=== PATIENT | male | born 1980 | race Caucasian/White ===

== ENCOUNTER 2017-07-13 | Emergency (ER) | payer SELFPAY ==
[2017-07-13] VITALS (11 sets, daily range): BP systolic 92–140; BP diastolic 52–92; PULSE 47–75; RESP 18–20; TEMP 97.4–97.9; O2SAT 93–97
[~2017-07-13] VITALS: Ht 167.6 cm; Wt 87.0 kg
[~2017-07-13] MED LIST: ASPI-516 CHEW; CYCL10TA PO; HYDR25TA5 PO; KLON2TAB PO; LISI-515 PO; METO25TA3 PO; NITR0.4S SL; OXYC15TA PO; ROSU10 PO
[2017-07-13] MEDS ORDERED: ONDANSETRON HCL 4 MG/2 ML VIAL IV PUSH PRN (00:45)
[2017-07-13] MEDS ORDERED: SODIUM CHLORIDE 0.9% FLUSH 10 ML FLUSH IV FLUSH PRN ×2 (00:45)
[2017-07-13] MEDS ORDERED: ACETAMINOPHEN 500 MG CPLT PO PRN (00:45)
[2017-07-13] MEDS ORDERED: NON-FORMULARY DRUG (Oxycodone 15 MG) PO PRN (10:00)
[2017-07-13] MEDS ORDERED: METOPROLOL TARTRATE 25 MG TAB PO SCH (11:00)
--- NOTE | 2017-07-13 11:23 | HHI.HP ---
HPI Primary Care Physician Non-Staff Chief Complaint Chest pain History of Present Illness This is a 37-year-old male that presents to ED with a stated history of CAD with an VT 7 years ago while he was in [place]. States that he had a cardiac catheterization in 1999 has also 2003 while in [place] and was told it mild disease but nothing that needed intervention. He was told that the VT was induced by cocaine. States he's had no cocaine since 1999. He presents to ED today with history of 2 days a constant sharp central chest discomfort that radiates down his left arm. No associated short of breath, nausea, or diaphoresis. He states he tried nitroglycerin couple times she did reduce the discomfort little bit but did not resolve it. Found nothing to worsen or improve the symptoms otherwise. 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 Patient continues to smoke cigarettes. Review of Systems General: Patient denies fevers, chills recent, and recent travel HEENT: Patient denies headache, sore throat, difficulty swallowing. Cardiovascular: Has the chest discomfort as mentioned above. Denies sensation of heart beating rapidly or irregularly. No syncope. Denies diaphoresis. Respiratory: Denies shortness of breath or inspirational chest discomfort. Denies coughing wheezing or hemoptysis. GI: Patient denies nausea, vomiting, diarrhea, abdominal pain, bloody stools. Musculoskeletal: Chronic back pain. Patient denies joint pain or edema. Denies calf pain or edema. Neurovascular: Patient denies numbness, tingling, weakness in extremities. Denies headache. Endocrine: Denies polyuria and polydipsia. Hematologic: Denies easy bruising. Skin: Denies rash or itching. Past Family Social History Allergies: Coded Allergies: No Known Allergies (Verified Allergy, Unknown, 07/13/17) Past Medical History Stated history of CAD. States he had 2 heart catheterizations one in 1999 and the other in 2002 revealing some disease but no interventions needed. 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 Hypertension, hyperlipidemia, chronic back pain, tobacco abuse. Denies diabetes. Reported Medications Reported Meds & Active Scripts Active Reported Hydrochlorothiazide 25 Mg Tab 25 Mg PO DAILY Oxycodone (Oxycodone HCl) 15 Mg Tab 15 Mg PO Q8H PRN Klonopin (Clonazepam) 2 Mg Tab 2 Mg PO TID Aspirin 81 Mg Chew 81 Mg CHEW DAILY Nitrostat SL (Nitroglycerin) 0.4 Mg Subl 0.4 Mg SL DIRECTED PRN 1 tablet under the tongue as needed for chest pain. Repeat every 5 minutes for a total of 3 DOSES or call 911 if NO relief. Crestor (Rosuvastatin Calcium) 10 Mg Tab 10 Mg PO DAILY Metoprolol Tartrate 25 Mg Tab 25 Mg PO DAILY Lisinopril 20 Mg Tab 20 Mg PO DAILY Active Ordered Medications Current Medications Medications (Trade) Dose Ordered Sig/Alison Route Start Time Stop Time Status Last Admin (NS Flush) 2 ml UNSCH PRN IV FLUSH 07/13/17 00:45 (NS Flush) 2 ml UNSCH PRN IV FLUSH 07/13/17 00:45 (Tylenol) 500 mg Q4H PRN PO 07/13/17 00:45 (Zofran Inj) 4 mg Q6H PRN IV PUSH 07/13/17 00:45 (Aspirin) 325 mg DAILY PO 07/14/17 09:00 (Roxicodone) 15 mg Q8H PRN PO 07/13/17 01:45 07/13/17 10:06 (Hydrodiuril) 25 mg DAILY PO 07/14/17 09:00 (Prinivil) 20 mg DAILY PO 07/13/17 11:00 (Lopressor) 25 mg DAILY PO 07/13/17 11:00 (Lipitor) 20 mg DAILY PO 07/13/17 11:00 Family History Denies family history of CAD. Social History Patient smokes about one half pack of cigarettes daily for 20 years. Denies alcohol. States she's had no illicit drugs since 1999. 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 Physical Exam Vital Signs Vital Signs Date Time Temp Pulse Resp B/P (MAP) Pulse Ox O2 Delivery O2 Flow Rate FiO2 07/13/17 08:00 52 07/13/17 07:40 97.4 52 18 92/52 (65) 97 07/13/17 03:30 97.8 58 18 97/55 (69) 95 07/13/17 03:12 14 07/13/17 00:50 61 07/13/17 00:31 97.5 67 20 140/89 (106) 96 Physical Exam GENERAL: This is a well-nourished, well-developed patient, in no apparent distress. Patient speaks in clear complete sentences. Patient is pleasant. HEENT: Head is atraumatic and normocephalic. Neck is supple without lymphadenopathy and trachea is midline. No JVD or carotid bruits. CARDIOVASCULAR: Regular rate and rhythm without murmurs, gallops, or rubs. RESPIRATORY: Clear to auscultation. Breath sounds equal bilaterally. No wheezes , rales, or rhonchi. Chest wall is nontender. No use of accessory muscles. GASTROINTESTINAL: Abdomen is nontender, nondistended. Abdomen soft. No obvious pulsatile mass or bruit. No CVA tenderness. Strong femoral pulses bilaterally. Normal bowel sounds in all quadrants. MUSCULOSKELETAL: Patient is moving upper and lower extremities freely. No calf tenderness or edema, no Homans sign. Strong pulses in upper and lower extremities. NEUROLOGICAL: Patient is alert and oriented. Cranial nerves 2-12 are grossly intact. No focal deficits and speech is clear. SKIN: No rash and turgor is normal. Laboratory Laboratory Tests Test 07/13/17 00:15 07/13/17 02:04 Troponin I LESS THAN 0.02 LESS THAN 0.02 Imaging Chest x-ray read by radiologist as nothing acute. Course EKGs and in sinus rhythm sinus bradycardia without significant ST segment depressions or elevations. Caprini VTE Risk Assessment Caprini VTE Risk Assessment: No/Low Risk (score <= 1) Caprini Risk Assessment Model Point Value = 1 Point Value = 2 Point Value = 3 Point Value = 5 Age 41-60 Minor surgery BMI > 25 kg/m2 Swollen legs Varicose veins or History of unexplained or recurrent spontaneous Oral contraceptives or hormone replacement Sepsis (< 1 month) Serious lung disease, including pneumonia (< 1 month) Abnormal pulmonary function Acute myocardial infarction Congestive heart failure (< 1 month) History of inflammatory bowel disease Medical patient at bed rest Age 61-74 Arthroscopic surgery Major open surgery (> 45 min) Laparoscopic surgery (> 45 min) Malignancy Confined to bed (> 72 hours) Immobilizing plaster cast Central venous access Age >= 75 History of VTE Family history of VTE Factor V Leiden Prothrombin [id number] Lupus anticoagulant Anticardiolipin antibodies Elevated serum homocysteine Heparin-induced thrombocytopenia Other congenital or acquired thrombophilia Stroke (< 1 month) Elective arthroplasty Hip, pelvis, or leg fracture Acute spinal cord injury (< 1 month) Prophylaxis Regimen Total Risk Factor Score Risk Level Prophylaxis Regimen 0-1 Low Early ambulation 2 Moderate Order ONE of the following: *Sequential Compression Device (SCD) *Heparin 5000 units SQ BID 3-4 Higher Order ONE of the following medications: *Heparin 5000 units SQ TID *Enoxaparin/Lovenox 40 mg SQ daily (WT < 150 kg, CrCl > 30 mL/min) *Enoxaparin/Lovenox 30 mg SQ daily (WT < 150 kg, CrCl > 10-29 mL/min) *Enoxaparin/Lovenox 30 mg SQ BID (WT < 150 kg, CrCl > 30 mL/min) AND/OR *Sequential Compression Device (SCD) 5 or more Highest Order ONE of the following medications: *Heparin 5000 units SQ TID (Preferred with Epidurals) *Enoxaparin/Lovenox 40 mg SQ daily (WT < 150 kg, CrCl > 30 mL/min) *Enoxaparin/Lovenox 30 mg SQ daily (WT < 150 kg, CrCl > 10-29 mL/min) *Enoxaparin/Lovenox 30 mg SQ BID (WT < 150 kg, CrCl > 30 mL/min) AND *Sequential Compression Device (SCD) Assessment and Plan Assessment and Plan * Chest pain: Patient has had serial cardiac enzymes and EKGs for ruling out purposes. He will be seen by Dr. Guerrero of cardiology in the chest and center. Patient states he cannot go on the treadmill was his back issues and subsequently will undergo a Lexiscan. He'll be discharged home if the stress test is nonischemic, he will need follow-up with PCP and cardiology. Return to ED for interval issues. * Hypertension: Continue current medication. * Hyperlipidemia: Continue current medication. * Tobacco abuse: Patient has been counseled on importance of smoking cessation. Patient is stable time. He is agreeable to this plan. Josse Fernandez Jul 13, 2017 11:23
[2017-07-13] MEDS ORDERED: MORPHINE SULFATE 4 MG/ML INJ IV PUSH ONE ×2 (14:03→21:15)
[2017-07-13] MEDS ORDERED: REGADENOSON INJ 0.4 MG/5 ML SYR ONE (14:16)
--- NOTE | 2017-07-13 14:23 | EKG ---
Date Performed: 07/13/2017 Time Performed: 02:35:25 PTAGE: 37 years EKG: SINUS BRADYCARDIA BORDERLINE ECG PREVIOUS TRACING : 02/17/2014 11.27 Since previous tracing, no significant change noted DOCTOR: Abdirizak Guerrero Interpretating Date/Time 07/13/2017 14:22:45
[2017-07-13] MEDS: LISINOPRIL 20 MG TAB PO SCH (15:32)
[2017-07-13] MEDS: ATORVASTATIN 20 MG TAB PO SCH (15:34)
--- NOTE | 2017-07-13 16:30 | RADRPT ---
EXAM DATE/TIME: 07/13/2017 13:36 [facility] COMPARISON: No previous studies available for comparison. INDICATIONS : Chest pain. Angina. DOSE: 25.4 mCi Tc99m Myoview at stress. 8.5 mCi Tc99m Myoview at rest. 0.4 mg Lexiscan STRESS SYMPTOMS: Shortness of breath, chest pressure. EJECTION FRACTION: 56% MEDICAL HISTORY : Hypertension. Hepatitis. SURGICAL HISTORY : Appendectomy. ENCOUNTER: Initial ACUITY: 1 day PAIN SCALE: 4/10 LOCATION: Bilateral chest TECHNIQUE: The patient underwent pharmacologic stress with infusion of prescribed dose. Continuous ECG tracing was monitored during stress. Gated SPECT imaging was performed after stress and conventional SPECT i maging was performed at rest. The examination was performed on a SPECT/CT scanner, both attenuation and non-corrected datasets were reviewed. FINDINGS: DISTRIBUTION: The maximum perfused segment at stress is in the anterolateral wall. PERFUSION STUDY: The exam demonstrates a moderate severity, reversible perfusion defect involving the septum. There is no associated wall motion abnormality. GATED STUDY: There is intact wall motion and thickening without hypokinetic or dyskinetic segments. CONCLUSION: 1. Moderate in severity, reversible perfusion defect involving the cardiac septum. RISK CATEGORY: Intermediate (1-3% Annual Mortality Rate) Vitaly Lentz MD on July 13, 2017 at 16:26 Board Certified Radiologist. This report was verified electronically.
--- NOTE | 2017-07-13 17:53 | TR ---
Date Performed: 07/13/2017 Time Performed: 14:12:44 DOCTOR: Abdirizak Guerrero DRUG LIST: CLINICAL HISTORY: ANGINA REASON FOR TEST: REASON FOR ENDING: OBSERVATION: CONCLUSION: Lexiscan stress test was performed under standard four minute protocol. Radionuclid e was injected one minute prior to ending the test. No electrocardiographic abormalities were present to suggest ischemia. Nuclear imaging and interpretation are pending. COMMENTS:
[2017-07-13] MEDS: NITROGLYCERIN 2% OINT 1 GM PACKET TOPICAL SCH ×2 (18:16→23:08)
[2017-07-13] MEDS ORDERED: HEPARIN-D5W 25,000 U/250 ML 250 ML IV PRN ×3 (21:30→23:15)
[2017-07-13] MEDS: clonazePAM 1 MG TAB PO PRN (23:06)
[2017-07-14 00:23] LABS: APTT (PATIENT) 34.6 SEC (24.3-30.1); INTERNATIONAL NORMALIZED RATIO 1.1 RATIO; PROTHROMBIN TIME - PATIENT 12.2 SEC (9.8-11.6)
[2017-07-14 00:49] VITALS: BP 89/53; PULSE 65; RESP 18; TEMP 98; O2SAT 95
[2017-07-14 01:16] VITALS: BP 131/75; PULSE 63
[2017-07-14] MEDS: MORPHINE SULFATE 4 MG/ML INJ IV PUSH PRN ×2 (01:19→07:03)
[2017-07-14 04:34] LABS: AUTOMATED NEUTROPHIL # 2.8 TH/MM3 (1.8-7.7); BASOPHIL % 0.6 % (0.0-2.0); EOSINOPHIL # 0.3 TH/MM3 (0-0.4); EOSINOPHIL % 5.1 % (0.0-4.0); HEMATOCRIT 41.2 % (39.0-51.0); HEMO FLAGS DIFF FINAL; LYMPH % 33.1 % (9.0-44.0); LYMPHOCYTE # 1.8 TH/MM3 (1.0-4.8); MEAN CELL VOLUME 90.4 FL (80.0-100.0); MEAN CORPUSCULAR HGB CONC 34.3 % (32.0-36.0); MONO % 9.2 % (0.0-8.0); PLATELET COUNT 207 TH/MM3 (150-450); RED BLOOD COUNT 4.56 MIL/MM3 (4.50-5.90); RED CELL DISTRIBUTION WIDTH 14.6 % (11.6-17.2); WHITE BLOOD COUNT 5.4 TH/MM3 (4.0-11.0)
[2017-07-14 04:44] LABS: APTT (PATIENT) 45.3 SEC (24.3-30.1)
[2017-07-14 04:50] LABS: BICARBONATE 30.2 MEQ/L (21.0-32.0); POTASSIUM 4.1 MEQ/L (3.5-5.1)
[2017-07-14 05:35] VITALS: BP 128/85; PULSE 62; RESP 18; TEMP 97.3; O2SAT 95
[2017-07-14] MEDS: NITROGLYCERIN 2% OINT 1 GM PACKET TOPICAL SCH (06:00)
[2017-07-14 07:18] VITALS: BP 132/93; PULSE 62; PULSE 68; RESP 18; TEMP 97.8; O2SAT 99
[2017-07-14] MEDS ORDERED: POVIDONE IODINE 5% (ANTISEPSIS KIT) 4 APPLICATIONS EACH NARE PRN (07:30)
[2017-07-14] MEDS ORDERED: METOPROLOL TARTRATE 25 MG TAB PO PRN (07:30)
[2017-07-14] MEDS ORDERED: CHLORHEXIDINE GLUCONATE 2 % 1 PACK (2 CLOTHS) TOPICAL PRN (07:30)
[2017-07-14] MEDS ORDERED: SODIUM CHLORID 0.9% 500 ML IV PRN (07:30)
[2017-07-14] MEDS ORDERED: LACTATED RINGER'S 1000 ML IV PRN (07:30)
[2017-07-14] MEDS ORDERED: SODIUM CHLOR 0.9% 1000 ML INJ 1,000 ML IV SCH (08:09)
[2017-07-14] MEDS: ATORVASTATIN 20 MG TAB PO SCH (08:09)
[2017-07-14] MEDS: clonazePAM 1 MG TAB PO PRN (08:10)
[2017-07-14] MEDS: LISINOPRIL 20 MG TAB PO SCH (08:10)
--- NOTE | 2017-07-14 08:10 | HHI.PR ---
Subjective Remarks Follow up for chest pain. The patient reports continued episodes of intermittent left anterior chest pain overnight, lasts 5-10minutes, relieved by IV morphine. Denies any associated SOB, nausea/vomiting, or diaphoresis. He is agreeable to cardiac catheterization. He does continue to smoke tobacco. He has no other medical complaints at this time. Objective Vitals Vital Signs Date Time Temp Pulse Resp B/P (MAP) Pulse Ox O2 Delivery O2 Flow Rate FiO2 07/14/17 07:18 62 07/14/17 07:18 97.8 68 18 132/93 (106) 99 07/14/17 05:35 97.3 62 18 128/85 (99) 95 07/14/17 05:22 16 07/14/17 01:16 63 131/75 (93) 07/14/17 00:49 98.0 65 18 89/53 (65) 95 07/13/17 23:23 47 07/13/17 21:37 97.5 62 18 134/92 (106) 96 07/13/17 17:00 54 07/13/17 15:24 97.7 74 18 123/87 (99) 97 07/13/17 12:00 62 07/13/17 11:22 97.9 75 18 107/58 (74) 93 07/13/17 08:00 52 Result Diagram: 07/14/1741907/14/17 042 Imaging Last Impressions Myocardial Perfusion Scan Nuc Med 07/13/17 0000 Signed Impressions: Service Date/Time: June 13:36 - CONCLUSION: 1. Moderate in severity, reversible perfusion defect involving the cardiac septum. RISK CATEGORY: Intermediate (1-3%% Annual Mortality Rate) Vitaly Lentz MD Objective Remarks GENERAL: Well-nourished, well-developed middle aged male patient in [facility]. SKIN: Warm and dry. No rash. HEENT: Normocephalic. Atraumatic. Pupils equal and round. Mucous membranes pink and moist. NECK: Supple. Trachea midline. CARDIOVASCULAR: Regular rate and rhythm. S1, S2 noted. No murmur appreciated. RESPIRATORY: No accessory muscle use. Clear to auscultation. Breath sounds equal bilaterally. GASTROINTESTINAL: Abdomen soft, non-tender, nondistended. Normoactive bowel sounds x4. MUSCULOSKELETAL: No obvious deformities. Extremities without clubbing, cyanosis , or edema. NEUROLOGICAL: Awake and alert. No obvious cranial nerve deficits. Motor grossly within normal limits. Normal speech. PSYCHIATRIC: Appropriate mood and affect; insight and judgment normal. Medications and IVs Current Medications Medications (Trade) Dose Ordered Sig/Alison Route Start Time Stop Time Status Last Admin (NS Flush) 2 ml UNSCH PRN IV FLUSH 07/13/17 00:45 07/14/17 01:19 (NS Flush) 2 ml UNSCH PRN IV FLUSH 07/13/17 00:45 (Tylenol) 500 mg Q4H PRN PO 07/13/17 00:45 (Zofran Inj) 4 mg Q6H PRN IV PUSH 07/13/17 00:45 (Aspirin) 325 mg DAILY PO 07/14/17 09:00 (Hydrodiuril) 25 mg DAILY PO 07/14/17 09:00 (Prinivil) 20 mg DAILY PO 07/13/17 11:00 07/13/17 15:32 (Lipitor) 20 mg DAILY PO 07/13/17 11:00 07/13/17 15:34 (Nitroglycerin 2% Oint) 1 inch Q6HR TOPICAL 07/13/17 18:00 07/13/17 18:16 (Roxicodone) 15 mg Q6HR PRN PO 07/13/17 21:15 07/14/17 04:22 (KlonoPIN) 1 mg Q8HR PRN PO 07/13/17 21:15 07/13/17 23:06 (Morphine Inj) 4 mg Q3H PRN IV PUSH 07/13/17 21:30 07/14/17 07:03 Heparin Sodium/ Dextrose 250 ml @ 10 mls/hr TITRATE PRN IV 07/13/17 23:15 07/14/17 00:32 Lactated Ringer's 1,000 ml @ 30 mls/hr Q24H PRN IV 07/14/17 07:30 07/17/17 07:29 Sodium Chloride 500 ml @ 30 mls/hr [id number] PRN IV 07/14/17 07:30 07/17/17 07:29 (Lopressor) 25 mg HEALTHCARE RECEPTIONIST PRN PO 07/14/17 07:30 07/17/17 07:29 (Betadine 5% Antisepsis Kit) 1 applic HEALTHCARE RECEPTIONIST PRN EACH NARE 07/14/17 07:30 07/17/17 07:29 (Chlorhexidine 2% Cloth) 3 pack HEALTHCARE RECEPTIONIST PRN TOPICAL 07/14/17 07:30 07/17/17 07:29 (Lopressor) 25 mg Q12HR PO 07/14/17 09:00 UNV A/P Problem List: (1) Unstable angina ICD Code: I20.0 - Unstable angina (2) CAD (coronary artery disease) ICD Code: I25.10 - Atherosclerotic heart disease of ruby coronary artery without angina pectoris Status: Acute (3) HTN (hypertension) ICD Code: I10 - Essential (primary) hypertension (4) HLD (hyperlipidemia) ICD Code: E78.5 - Hyperlipidemia, unspecified (5) Tobacco abuse ICD Code: Z72.0 - Tobacco use Assessment and Plan 37-year-old male history of HTN, HLD, mild CAD (no stents), chronic back pain, anxiety, tobacco use, presents with chest pain. Unstable angina: Patient initially admitted to chest pain center, ACS ruled out with negative serial cardiac enzymes 2 and EKG without any ischemic changes. Nuclear stress test showed moderate severity, reversible perfusion defect involving the cardiac septum. The patient was admitted to the hospitalist, with cardiology consult pending. -Continue on IV heparin drip -Started on full strength aspirin -Patient unable to tolerate nitroglycerin ointment secondary to severe headache and hypotension -Continue patient's lisinopril, statin -UDS negative for cocaine, restart beta tawana -Give IV morphine prn chest pain -Monitor on telemetry -Consult cardiology, plan for cardiac catheterization today Hypertension: chronic -continue patient's lisinopril, metoprolol, HCTZ -monitor BP, adjust antihypertensives as needed Hyperlipidemia: chronic -continue patient's statin -check lipid panel Anxiety/Chronic Back Pain: chronic -continue patient's home oxycodone prn and Klonopin prn Tobacco Use: chronic -counseled on cessation -avoid nicotine patch due to vasoconstriction DVT Prophylaxis: on Heparin drip Discharge Planning 1300hrs: Patient's cardiac catheterization clean, cleared for discharge by Dr. Majano. RN reports patient eloped the building then returned, agreed to stay for proper discharge and medication refill however requested to speak with physician. Patient seen by myself and Dr. Faulkner. He is requesting all of his meds be refilled for at least 1 week. Explained will only fill cardiac medications, patient verbalized understanding. He will be discharged. Discharge patient to home Condition on discharge: Improved Heart Healthy Diet as tolerated Ad Michelle activity Rx written: lisinopril, metoprolol, hctz, aspirin, statin Follow-up with primary care physician and cardiology Tatiana Skinner PA-C Jul 14, 2017 8:10 am
[2017-07-14] MEDS ORDERED: MIDAZOLAM HCL 2 MG/2 ML VIAL IV PUSH SCH (08:15)
[2017-07-14] MEDS ORDERED: DIAZEPAM 10 MG TAB PO SCH (08:15)
[2017-07-14] MEDS ORDERED: diphenhydrAMINE HCL 50 MG CAP PO SCH (08:15)
[2017-07-14] MEDS ORDERED: METOPROLOL TARTRATE 25 MG TAB PO SCH (09:00)
[2017-07-14] MEDS ORDERED: ASPIRIN 325 MG TAB PO SCH (09:00)
[2017-07-14] MEDS ORDERED: HYDROCHLOROTHIAZIDE 25 MG TAB PO SCH (09:00)
[2017-07-14 09:11] LABS: APTT (PATIENT) 34.3 SEC (24.3-30.1)
--- NOTE | 2017-07-14 09:53 | MB ---
cc: MINERVA SIDDIQUI M.D. DATE OF CONSULTATION: 07/14/2017 REASON FOR CONSULTATION: Chest pain, abnormal nuclear stress test. HISTORY OF PRESENT ILLNESS: The patient is a 37 year-old white male with a history of hypertension, hyperlipidemia, mild coronary disease by heart catheterizations 1999 and 2002 according to the patient who presented to the hospital with chest pain. For about the past two to three days he has been having intermittent episodes of substernal chest discomfort described as "pressure" without associated shortness of breath or diaphoresis. One episode was associated with nausea. He became concerned on the day of admission because the pain radiated to his left arm. Episodes have lasted up to two hours in duration. He has taken sublingual nitroglycerin at home with partial relief of the chest pain. Nuclear stress testing yesterday suggested septal ischemia. He denies pleurisy, dizziness, syncope, near syncope, palpitations, peripheral edema. He reports compliance with his medications. PAST MEDICAL HISTORY: As above. He also has a history of hepatitis C. CARDIAC MEDICATIONS AT HOME: 1. Hydrochlorothiazide 25 mg daily. 2. Aspirin 81 mg daily. 3. Crestor 10 mg daily. 4. Metoprolol tartarate 25 mg daily. 5. Lisinopril 20 mg daily. ALLERGIES NO KNOWN DRUG ALLERGIES FAMILY HISTORY: There is no significant family history of early myocardial infarction. SOCIAL HISTORY: The patient smokes about 8 cigarettes per day. He denies drug or alcohol abuse. He has used cocaine in the distant past. REVIEW OF SYSTEMS As in the history of present illness otherwise negative and noncontributory. He also denies headaches, abdominal pain, melena, dyspepsia, bright red blood per rectum. PHYSICAL EXAMINATION: VITAL SIGNS: Blood pressure 132/93 with pulse of 62, respirations 18. IN GENERAL: He is a well-developed, well-nourished white male in no acute distress. HEAD, EARS, EYES, NOSE, AND THROAT: Jugular venous pressure is normal, carotid pulses are 2+ bilaterally without bruits. CHEST: Examination of the chest reveals clear lung salazar CARDIAC: On cardiac examination, he has regular rhythm and rate without S3, S4 or murmur. ABDOMEN: He has a soft, nontender abdomen, bowel sounds are present. There is no definite hepatosplenomegaly. EXTREMITIES: Examination of the extremities reveals no clubbing, cyanosis or edema. Peripheral pulses are normal throughout. LABORATORY DATA: normal basic metabolic profile, negative cardiac enzymes. Normal CBC. Electrocardiogram shows sinus bradycardia, otherwise normal electrocardiogram. IMPRESSION: Overall atypical chest pains, abnormal nuclear stress test in this 37 year old white male with history of hypertension, hyperlipidemia, hepatitis C, mild coronary disease according to the patient, demonstrated by cardiac catheterizations many years ago. His chest pains have no relationship to exertion whatsoever. He has had episodes lasting at least 2 hours in duration with negative cardiac enzymes. EKG's show no ST-segment or T-wave changes. His nuclear stress test images have been reviewed. There is indeed reversibility in the septum. However, isolated septal ischemia would be an unusual finding. He does have risk factors for coronary disease. The patient does continue to have ongoing chest discomforts at rest. Overall, I have recommended he undergo cardiac catheterization for most definitive evaluation of his coronaries. The nature of this procedure and potential risks including but not limited to , myocardial infarction, stroke, arrhythmia, bleeding, infection, renal failure been outlined to the patient. He agrees to proceed. RECOMMENDATIONS Cardiac catheterization today. MD RAMA Greene/ying /8:10 AM /9:50 AM MTDD
[2017-07-14 10:07] LABS: HDL CHOLESTEROL 64.7 MG/DL (40.0-60.0)
[2017-07-14] MEDS ORDERED: IOHEXOL 350 MG/ML 100 ML BTL (for Cath Lab) OTHER ONE (10:43)
[2017-07-14] MEDS ORDERED: HEPARIN-NS/PF INJ 1,000 ML ONE (10:53)
[2017-07-14] MEDS ORDERED: MIDAZOLAM HCL 2 MG/2 ML VIAL ONE (10:54)
[2017-07-14] MEDS ORDERED: NITROGLYCERIN INJ 5 ML ONE (11:03)
[2017-07-14] MEDS ORDERED: HEPARIN SODIUM - IV 10,000 UNITS/10 ML VIAL ONE (11:03)
[2017-07-14] MEDS ORDERED: VERAPAMIL HCL 5 MG/2 ML VIAL ONE (11:03)
--- NOTE | 2017-07-14 11:24 | CATHPROC ---
[employer] HIS Report Study Information Study Number Admission Scheduled Start Study Start [id number] Jul 13 2017 12:10AM 07/14/2017 Jul 14 2017 10:13AM [place] [facility] Cardiac Catheterization Admit Source Facility Department Other [facility] - Language Instructor Physician and Clinical Staff Initial Hiram Michael Facilities Administrator Coco Caraballo,ANTONELLA Facilities Administrator Karan Campbell,ANTONELLA Other cathlab, cathlab Recorder Felix Washington RCIS(BS) Scrub Alvina Hernandez RT(R) (BS) Procedures Performed Procedure Location (Site) Vessel Name Coronary Angiograms LCA Left Coronary Coronary Angiograms RCA Right Coronary L Heart Cath LV Gram-hand inj. LV LV Ventricle Equipment Time Balloon Maker Description Size Mfg Part Number Used/Scraped TRANSDUCER, TRPellePharmAVE [id number] 11:03 VILLALOBOS GARCIA * Used W/STOCKCOCK *[id number] *[id number] *[id number] *[id number] 11:03 MALLINCKRODT SYRINGE, ANGIOMAT 150ML 150ML *[id number] Used [facility] Spootr CONCEPT DRAPE, RADIAL FEMORAL FULL 11:03 * [id number] *[id number] Used DEVELOPMENT BODY [id number] 11:03 Tradoria PACK, CCL CUSTOM * Used *[id number] 11:03 Tradoria SUPPORT, ARTERIAL ADULT [id number] *[id number] Used [id number] 11:03 icomply PACER PEN, SKIN DUAL W/ RULER * Used *[id number] SHEATH, FR6 RADIAL PRELUDE 11:03 Xamarin FR 6 [id number] Used EASE 11CM [id number] 11:03 Xamarin WIRE, EXCHANGE 260CM 3MMJ 260CM Used *[id number] 11:03 NAMIC MANIFOLD, 4 PORT * Used *[id number] 11:03 NYCOMED OMNIPAQUE, 350 MG, 150ML 150ML [id number] Used [id number] 11:03 [employer] BLANKET,WARM AIR CCL * Used *[id number] CATHETER, FR5 OPTITORQUE [id number] 11:03 TERkaufDA FR 5 Used RADIAL TIG 4.0 *[id number] History: Current Medications Medication Dosage/Unit Route Frequency Last Date/Time Taken ASA CRESTOR Beta Gianfranco LISINOPRIL History: Allergies Allergy Reaction No Known Allergies History: Risk Factors Family History of Hypertension Dyslipidemia Previous TN Previous Heart Failure Premature CAD Yes Yes No Yes No Prior Valve Prior PCI Prior CABG Surgery No No No Cerebrovascular Peripheral Artery Chronic Lung On Dialysis Diabetes Disease Disease Disease No No No No No History: Symptoms/Diagnosis Selection Items Chest pain History: Stress Tests Stress or Imaging Studies Performed Yes Standard Exercise Stress Test No Stress Echo No Stress Test SPECT Stress Test SPECT Result Stress Test SPECT Ischemia Risk/Extent Yes Positive Intermediate Stress Test CMR No Cardiac CTA Coronary Calcium Score No No History: Other Disease Selection Items HTN History: TN/CV Data Previous Cath Date 08/28/2002 History: Other Current Smoker No Labs Hgb (g/dl) Hct (%) WBC (l/cumm) Platelets (thousands) 11.60-17.00 35.00-51.00 4.00-11.00 150.00-450.00 14.1 41.2 5.4 207 Glucose (mg/dl) BUN (mg/dl) Creatinine (mg/dl) BUN:Creatinine (1:x) 74.00-106.00 7.00-18.00 0.50-1.30 10.00-20.00 83 22 0.8 27.5 Na (meq/l) K (meq/l) 136.00-145.00 3.50-5.10 142 4.1 INR (PTT:PT) 0.90-1.10 1.1 Troponin I (ng/ml) CPK-MB (ng/ML) 0.02-0.05 0.50-3.60 0.02 Not Drawn Medication Medication Total Dose (Bolus/Oral) Medication Total Dosage/Unit 1% XYLOCAINE 3 mL FENTANYL 50 mcg RADIAL COCKTAIL 5 mL (Bolus) VERSED 2 mg Medications (Bolus/Oral) Medication Time Given Dosage/Unit Administered By Reason 07/14/2017 11:05:04 VERSED 2 mg Karan Campbell AM 2 mg VERSED given in lab by Karan Campbell RN in Left Antecubital via Peripheral IV. Ordered by Glenn. Kelle 07/14/2017 11:05:13 FENTANYL 50 mcg Karan Campbell AM 50 mcg FENTANYL given in lab by Karan Campbell RN in Left Antecubital via Peripheral IV. Ordered by Glenn. Gretel 07/14/2017 11:05:27 1% XYLOCAINE 3 mL Hiram Majano AM 3 mL 1% XYLOCAINE given in lab by Hiram Majano in Right Radial via Subcutaneous. 07/14/2017 11:06:37 Ntg 200mcg Verapamil 2.5mg Heparin RADIAL COCKTAIL 5 mL (Bolus) Hiram Majano AM 2500U 5 mL (Bolus) RADIAL COCKTAIL given in lab by Hiram Majano in Right Radial via Radial. Using [Solution Name]. Reason: Ntg 200mcg Verapamil 2.5mg Heparin 2500U. Medication (Drip) Medication Time Given Dosage/Unit Concentration/Unit Diluent (ml) Solutio n 07/14/2017 10:39:17 IV Solutions 0 mL (IV) 500 NaCl .9 AM Patient arrived on IV Solutions given by cathlab, cathlab in Left Antecubital via Peripheral IV. Pump /Drip Flow = 20 ml/hr using NaCl .9. Ordered by Hiram Majano. Initial Case Assessment Cardiovascular HR Rhythm NIBP Chest Pain 66 nsr 145/100 0 Edema Present Skin color Skin None Normal Warm Dry Circulatory - Right Pulses Dorsalis Pedis Femoral Radial 3 3 3 Scale (0,1,2,3,4,d) Scale (0,1,2,3,4,d) Neurological State Oriented to time-place- Alert Moves all extremities person Respiration - General Respiration Rate SpO2 (%) (B/min) 15 98 Final Case Assessment Cardiovascular HR Rhythm NIBP Chest Pain 69 nsr 126/89 0 Edema Present Skin color Skin None Normal Warm Dry Circulatory - Right Pulses Dorsalis Pedis Femoral Radial 3 3 3 Scale (0,1,2,3,4,d) Scale (0,1,2,3,4,d) Neurological State Oriented to time-place- Alert Moves all extremities person Respiration - General Respiration Rate SpO2 (%) (B/min) 15 95 Chronological Log Time Study Chronological Log 10:39:03 Patient arrived via Bed. 10:39:04 Patient Name, D.O.B, / Armband Verified By R.N. 10:39:04 Consent signed by the physician and the patient and verified by the Language Instructor staff. 10:39:05 Pre-op and post- op instructions given; patient acknowledges understanding of instructions. 10:39:05 Verbal Stimulation=2 Physical Stimulation=2 Airway=2 Respiration=2 TOTAL=8. (0=absent, 1=li mited, 2=present) 10:39:06 Presedation assessment performed by Language Instructor RN. 10:39:07 Allens test performed on the right radial and ulnar artery. POSITIVE. 10:39:08 Immediate Presedation assesment performed by physician. 10:39:09 Patient has been NPO for More than 6Hrs. 10:39:09 Skin Breakdown- none per patient 10:39:15 Patient Warmer Placed on the Table. 10:39:16 Bobby Prominences Protected 10:39:16 A # 20 IV was noted in the Antecubital (left). Grade = 0 Patient arrived on IV Solutions given by cathlab, cathlab in Left Antecubital via Peripheral IV . Pump/Drip Flow = 20 10:39:17 ml/hr using NaCl .9. Ordered by Hiram Majano. 10:39:17 History and physical on the chart or being dictated. 10:47:51 Reference ECG taken Vitals capture started with the following parameters, Patient=Adult, Interval=5 min, Initial Pr oexwhj=683 mmHg, 10:47:52 Deflation Rate=5 mmHg, Cuff placed on Left Arm Assessment: Initial Case, HR=66 BPM, Rhythm=nsr, LFSC=736/100 mmhg, Chest Pain=0, Edema=None, Color=Normal, Skin = Warm, Dry 10:47:53 Right Pulses: Jamison Ped=3, Femoral=3, Radial=3 Neurological: State=Alert, Ox3, MEIER Respiration: Resp=15 B/min, SpO2=98 % 10:49:10 HR=60 bpm, VICP=409/100 mmhg, SpO2=98.0 %, Resp=13 B/min, Pain=0, Christopher=10, Nazario=2 10:52:53 Right Radial and groin(s) prepped with 2% chlorhexidine, and draped after a 3 min. waiting time. 10:53:49 HR=60 bpm, PCJU=122/89 mmhg, SpO2=95.0 %, Resp=12 B/min, Pain=0, Christopher=10, Nazario=2 10:57:13 MD paged 10:57:22 MD responded 10:57:54 Pressure channel 1 zeroed. 10:59:02 HR=59 bpm, FLBD=168/91 mmhg, SpO2=94.0 %, Resp=18 B/min, Pain=0, Christopher=10, Nazario=2 11:01:45 MD arrived. 11:01:51 Contrast Scanned 11:01:52 Immediate Presedation assesment performed by physician. 11:03:28 HR=61 bpm, STEK=333/73 mmhg, SpO2=92.0 %, Resp=15 B/min, Pain=0, Christopher=10, Nazario=2 Time Out. Correct patient, correct procedure, correct physician, power injector not loaded with contrast with surgical 11:04:37 team present. Time Out Concurred by MD and individual staff in procedure. 11:04:47 Case Start 11:04:48 Verbal Stimulation=2 Physical Stimulation=2 Airway=2 Respiration=2 TOTAL=8. (0=absent, 1=li mited, 2=present) 11:05:04 2 mg VERSED given in lab by Karan Campbell, ANTONELLA in Left Antecubital via Peripheral IV. Order ed by Hiram Majano. 11:05:13 50 mcg FENTANYL given in lab by Karan Campbell, ANTONELLA in Left Antecubital via Peripheral IV. O rdered by Hiram Majano. 11:05:27 3 mL 1% XYLOCAINE given in lab by Hiram Majano in Right Radial via Subcutaneous. 11:05:59 Access site was Right Radial Artery. A SHEATH, FR6 RADIAL PRELUDE EASE 11CM FR 6 was advanced into the Radial (right) using the Perc utaneous 11:06:24 technique. 5 mL (Bolus) RADIAL COCKTAIL given in lab by Hiram Majano in Right Radial via Radial. Using [So lution Name]. Reason: 11:06:37 Ntg 200mcg Verapamil 2.5mg Heparin 2500U. A CATHETER, FR5 OPTITORQUE RADIAL TIG 4.0 FR 5 was advanced over a wire. OMNIPAQUE, 350 MG, 150 ML 150ML 11:06:53 was used for injections. 11:08:29 HR=64 bpm, NIBP=95/64 mmhg, SpO2=95.0 %, Resp=16 B/min, Pain=0, Christopher=10, Nazario=2 Recorded Pressure: Ao, HR=65, Condition=Condition 1 11:09:35 (Aorta) Ao 99/72/86 11:10:17 The LCA was injected and visualized at various angles. OMNIPAQUE, 350 MG, 150ML 150ML used . After removing the current catheter a JR 5.0 INFINITI CATHETER FR 6 was advanced over a WIRE, E XCHANGE 260CM 11:12:25 3MMJ 260CM. 11:13:51 HR=68 bpm, VEFC=871/79 mmhg, SpO2=90.0 %, Resp=11 B/min, Pain=0, Christopher=10, Nazario=2 11:15:00 The RCA was injected and visualized at various angles. OMNIPAQUE, 350 MG, 150ML 150ML used . After removing the current catheter a MPA-2 INFINITI CATHETER FR 6 was advanced over a WIRE, EX CHANGE 260CM 11:15:53 3MMJ 260CM. After removing the current catheter a PIGTAIL STR INFINITI CATHETER FR 6 was advanced over a WI RE, EXCHANGE 11:17:00 260CM 3MMJ 260CM. Recorded Pressure: LV, HR=60, Condition=Condition 1 11:18:16 (Left Ventricle) LV 110/6/16 11:18:23 HR=77 bpm, UCZU=293/89 mmhg, Resp=20 B/min, Pain=0, Christopher=10, Nazario=2 11:18:32 The LV was manually injected with 10 cc's and visualized. OMNIPAQUE, 350 MG, 150ML 150ML us ed. Recorded Pressure: LV, Ao, HR=64, Condition=Condition 1 11:18:44 (Left Ventricle) LV 97/3/10, (Aorta) Ao 102/66/84 11:18:53 Catheter was removed 11:18:56 Case End Assessment: Final Case, HR=69 BPM, Rhythm=nsr, NHPB=806/89 mmhg, Chest Pain=0, Edema=None, [place] r=Normal, Skin = Warm, Dry 11:19:01 Right Pulses: Jamison Ped=3, Femoral=3, Radial=3 Neurological: State=Alert, Ox3, MEIER Respiration: Resp=15 B/min, SpO2=95 % 11:19:18 Radial Compression Device Used. 15 mLs of air placed in closure device. Affected hand 95 % O2 saturation. 11:19:38 Sterile dressing applied to site 11:19:39 No case complications noted. 11::39 Cine recording checked. 11:19:42 Bedside Report will be given. 11:19:44 Contrast Scanned 11::46 Verbal Stimulation=2 Physical Stimulation=2 Airway=2 Respiration=2 TOTAL=8. (0=absent, 1=li mited, 2=present) 11:20:23 A Left Heart Cath was performed. 11:23:24 HR=60 bpm, DZZZ=195/86 mmhg, SpO2=92.0 %, Resp=11 B/min, Pain=0, Christopher=10, Nazario=2 11:24:16 Patient moved to stretcher 11:24:17 Vitals capture stopped. End Study - Contrast Media Used In Study Contrast Total Opened (mL) Total Used (mL) Total Wasted (mL) Omnipaque 70 70 0 End Study - Maximum Contrast Load Max Contrast Load (mL) 543.8 End Study - Radiation Exposure Fluoro Time (minutes) 4.6 End Study - Patient Disposition Complications Transferred To Interventional Outcome No Language Instructor Holding No attempt made
[2017-07-14] MEDS ORDERED: MISC INFORMATION XX ONE (11:30)
[2017-07-14] MEDS ORDERED: NITR0.4S SL (13:09)
[2017-07-14] MEDS ORDERED: ROSU10 PO (13:09)
[2017-07-14] MEDS ORDERED: ASPI-516 CHEW (13:09)
[2017-07-14] MEDS ORDERED: LISI-515 PO (13:09)
[2017-07-14] MEDS ORDERED: HYDR25TA5 PO (13:09)
[2017-07-14] MEDS ORDERED: METO25TA3 PO (13:09)
--- NOTE | 2017-07-14 13:10 | HHI.DCPOC ---
Discharge Care Plan Diagnosis: (1) CAD (coronary artery disease) (2) HTN (hypertension) (3) HLD (hyperlipidemia) (4) Tobacco abuse Goals to Promote Your Health * To prevent worsening of your condition and complications * To maintain your health at the optimal level Directions to Meet Your Goals Take your medications as prescribed Follow your dietary instruction Follow activity as directed Keep your appointments as scheduled Take your immunizations and boosters as scheduled If your symptoms worsen call your PCP, if no PCP go to Urgent Care Center or Emergency Room Smoking is Dangerous to Your Health. Avoid second hand smoke Call the 24-hour hour crisis hotline for domestic abuse at Tatiana Skinner PA-C Jul 14, 2017 13:10
--- NOTE | 2017-07-14 14:29 | MA ---
cc: MINERVA SIDDIQUI M.D. DATE: 07/14/2017 PROCEDURE Left heart catheterization, selective coronary angiography, left ventriculography. PROCEDURE NOTE The patient was brought to the cardiac catheterization laboratory in a fasting state after having signed informed consent. The right radial region was prepped and draped as per policy and anesthetized with 1% lidocaine. Arterial access was obtained via the right radial artery and a 6 Italian sheath placed. Coronary arteriography was performed using a [place] catheter to engage the left main and a 6 Italian Luigi right 5.0 to engage the right coronary. Left ventriculography was done using a standard 6 Italian pigtail. There were no apparent immediate complications. A radial artery compression band was applied to his right wrist at the end of the case to achieve good hemostasis. HEMODYNAMIC DATA Left ventricle 100 with an end-diastolic pressure of 12. Aorta 98/66 with a mean of 75. There was no significant transvalvular aortic gradient on pullback of the pigtail catheter. CORONARY ARTERIOGRAPHY The left main is normal. The left anterior descending gives rise to a medium size diagonal. No disease is seen in the LAD system. The left circumflex gives rise to a medium size obtuse marginal. No disease is seen in the left circumflex system. The right coronary artery is a large dominant vessel with no disease. LEFT VENTRICULOGRAPHY Hand contrast injection of the left ventricle reveals no definite segmental wall motion abnormalities. Ejection fraction is estimated at 55%. CONCLUSIONS 1. Angiographically normal coronary arteries. 2. Normal left ventricular function with estimated ejection fraction of 55%. MD RAMA Greene/KATHE /12:04 PM /2:24 PM TIMOTHY
--- NOTE | 2017-07-14 16:19 | EKG ---
Date Performed: 07/13/2017 Time Performed: 12:18:40 PTAGE: 37 years EKG: SINUS BRADYCARDIA BORDERLINE ECG Since PREVIOUS TRACING , no significant change noted PREVIOUS TRACIN07/13/2017 02.35 DOCTOR: Abdirizak Guerrero Interpretating Date/Time 07/14/2017 16:18:34
== END 2017-07-14 13:45 | disposition left against medical advice (07) ==
LOC: NEPFCDU → NEDDLT → NEPFCDU 00:10 → UNDOADMOB 00:10 → NEPFCDU 07-14 10:44 → HCIS 07-14 10:44 → NEPF 07-14 13:45 → UNDODISOB 07-14 13:45
DX: R07.9 Chest pain, unspecified (principal); Z53.21 Procedure and treatment not carried out due to patient leaving prior to being seen by health care provider; I10 Essential (primary) hypertension; R94.31 Abnormal electrocardiogram [ECG] [EKG]; I25.10 Atherosclerotic heart disease of native coronary artery without angina pectoris; E78.5 Hyperlipidemia, unspecified; Z72.0 Tobacco use
CPT/HCPCS: 71010; 78452; 80048; 80053; 80061; 80307; 82550; 84484; 85025; 85610; 85730; 93005; 93017; 93458; 96365; 96374; 96375; 96376; 99152; 99285; A9502; C1769; C1893; J1644; J1885; J2250; J2270; J2785; J3010; J7030; Q0163; Q9967

== ENCOUNTER 2018-04-30 08:19 | Inpatient (IN) ==
[2018-04-30] MEDS ORDERED: Sod Chloride 0.9% Inj 1,000 ML IV.SIG SCH ×4 (09:00→13:32)
--- NOTE | 2018-04-30 09:08 | ED ---
HPI General Chief Complaint: Altered Mental Status Stated Complaint: Psych eval Time Seen by Provider: 04/30/18 08:48 Source: patient Mode of arrival: EMS Limitations: altered mental status History of Present Illness HPI narrative: 38-year-old male with history of IV drug use and endocarditis presents to the emergency department via [facility] as a transfer from [place] for ' acute psychosis'. [facility] states that patient was able to transfer from the bed to their stretcher when they departed [place] however, patient became slightly altered and was alert to self and place but not time. They say that he is able to tell his name, social security number, date. Upon my evaluation, patient is slurring his speech but does make sense. States his last IV drug use of heroin was 5 days ago. He denies any other illicit drugs to include cocaine. Patient says he was last diagnosed with endocarditis months ago but was treated. Currently he is complaining abdominal pain and says he has had this pain for approximately 5 days. He is unable to give more information about this abdominal pain. He is a poor historian and says he 'does not feel good'. MD complaint: altered mental status Severity: mild Consistency of symptoms: constant Related Data Allergies Allergy/AdvReac Type Severity Reaction Status Date / Time No Known Allergies Allergy Unknown Uncoded 07/13/17 00:28 Review of Systems ROS: all other systems reviewed are negative PMFSH History History Provided By: Patient and Dermatology Specialist / EMT Social History Social History Substance History: Active Abuse Second Hand Smoke Exposure: No Smoking Status: Cognitive impairment Tobacco Type: Cigarettes How Often Do You Have a Drink Containing Alcohol: Unable to Obtain Recent Travel in [facility] within the Last 8 Weeks: No Recent Out of Country Travel within the Last 8 Weeks: No Exam Narrative Exam Narrative: GENERAL: WD, WN somewhat altered. SKIN: Focused skin assessment warm/dry. [place] lesions present on bilateral hand, petechia rash on face, healing small, ulcerated lesions on ankles ( chigger bites?) HEAD: Atraumatic. Normocephalic. EYES: Pupils equal and round. No scleral icterus. No injection or drainage. ENT: No nasal bleeding or discharge. Mucous membranes pink and moist. NECK: Trachea midline. No JVD. CARDIOVASCULAR: Regular rate and rhythm. No murmur appreciated. RESPIRATORY: No accessory muscle use. Clear to auscultation. Breath sounds equal bilaterally. GASTROINTESTINAL: Abdomen soft, non-tender, nondistended. Hepatic and splenic margins not palpable. MUSCULOSKELETAL: No obvious deformities. No clubbing. No cyanosis. No edema. NEUROLOGICAL: Awake and alert. No obvious cranial nerve deficits. Motor grossly within normal limits. Normal speech. PSYCHIATRIC: Appropriate mood and affect; insight and judgment normal. Course Initial Documented Vital Signs Temperature 98.8 F 04/30/18 08:46 Pulse Rate 119 H 04/30/18 08:46 Respiratory Rate 18 04/30/18 08:46 Blood Pressure 103/78 04/30/18 08:46 Pulse Oximetry 99 04/30/18 08:46 Last Documented Vital Signs Temperature 99.8 F H 04/30/18 15:00 Pulse Rate 126 H 04/30/18 15:00 Respiratory Rate 24 04/30/18 15:00 Blood Pressure 127/77 04/30/18 15:00 Pulse Oximetry 99 04/30/18 15:00 Medical Decision Making MDM Narrative Medical decision making narrative: 38-year-old male presents to emergency department for psych evaluation. Patient is a transfer from [place]. 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 Ativan administered for agitation. Delayed obtaining CT b/o agitation. Leukocytosis at 16.1, increased from 13.7 earlier this morning. 19 bandemia. Lactic 3.1 Troponin 3.34. EKG Sinus tachycardia without STEMI changes. Potassium 20meq administered for hypokalemia at 3.1. Note that he received some potassium replacement earlier today as well. 3L NS administered through ED visit. Zosyn and Vancomycin administered. Discussed case with Dr. Mckeon who agrees to the admission. Pending CT Abdomen /pelvis. Medical Screen Exam Complete: Yes Emergency Medical Condition: Yes Differential Diagnosis Differential Diagnosis: Sepsis, intoxication, rhabdo, Medical Records Medical records reviewed: Yes I reviewed the patient's medical records. Transfer from [place]. Leukocytosis presents with shift. Total bili 1.2, potassium 3.0. Lab Data Lab results reviewed: Yes I reviewed the patient's lab results. Result diagrams: 04/30/18 09:08 04/30/18 12:31 Lab Results 04/30/18 04/30/18 04/30/18 Range/Units 09:08 09:08 09:08 WBC 16.1 H (4.0-11.0) th/mm3 RBC 5.11 (4.50-5.90) mil/mm3 Hgb 14.8 (13.0-17.0) gm/dL Hct 43.2 (39.0-51.0) % MCV 84.6 (80.0-100.0) fL MCH 29.0 (27.0-34.0) pg MCHC 34.2 (32.0-36.0) % RDW 13.8 (11.6-17.2) % Plt Count 133 L (150-450) th/mm3 MPV 10.0 (7.0-11.0) fL Prelim Diff (Auto) Slide review pending Neut % (Auto) 90.1 H (16.0-70.0) % Lymph % (Auto) 1.0 L (9.0-44.0) % [place] % (Auto) 8.4 H (0.0-8.0) % Eos % (Auto) 0.1 (0.0-4.0) % Baso % (Auto) 0.4 (0.0-2.0) % Neut # (Auto) 14.5 H (1.8-7.7) th/mm3 Lymph # (Auto) 0.2 L (1.0-4.8) th/mm3 [place] # (Auto) 1.4 H (0.0-0.9) th/mm3 Eos # (Auto) 0.0 (0.0-0.4) th/mm3 Baso # (Auto) 0.1 (0.0-0.2) th/mm3 WBC Differential Manual diff final Seg Neuts % (Manual) 74 H (16-70) % Band Neuts % (Manual) 19 H (0-6) % Monocytes % (Manual) 6 (0-8) % Metamyelocytes % (Man) 1 (0-1) % Abs Neuts (Manual) 15.1 H (1.8-7.7) th/mm3 Differential Comment . Toxic Vacuolation Present H (None) Platelet Estimate Low L (Normal) Platelet Morphology Normal (Normal) RBC Morphology Normal (Normal) Puncture Site Patient Temperature O2 Saturation (90-100) % ABG pH (7.380-7.420) ABG pCO2 (38-42) mmHg ABG pO2 (61-120) mmHg ABG HCO3 (22-26) mmol/L ABG O2 Content (12.0-20.0) Vol % ABG Base Excess (-2-2) mmol/L ABG Methemoglobin (0-2) % Jeremiah Test Hemoglobin (12.0-16.0) G/DL Carboxyhemoglobin (0-4) % O2 Delivery Device Inspired O2 % Critical Value Sodium 134 L (136-145) meq/L Potassium 3.1 L (3.5-5.1) meq/L Chloride 98 (98-107) meq/L Carbon Dioxide 25.2 (21.0-32.0) meq/L Anion Gap 11 (5-15) meq/L BUN 22 H (7-18) mg/dL Creatinine 1.04 (0.60-1.30) mg/dL Estimated GFR 80 L (>89) mL/min Random Glucose 127 H (74-106) mg/dL Lactic Acid 3.1 H (0.4-2.0) mmol/L Calcium 8.5 (8.5-10.1) mg/dL Magnesium (1.5-2.5) mg/dL Total Bilirubin 1.5 H (0.2-1.0) mg/dL AST 69 H (15-37) U/L ALT 62 (12-78) U/L Alkaline Phosphatase 59 (45-117) U/L Ammonia (11-32) mcmol/L Total Creatine Kinase 592 H (39-308) U/L CK-MB (CK-2) 7.9 H (0.5-3.6) ng/mL CK-MB (CK-2) % 1.3 (0.0-4.0) % Troponin I 3.34 H* (0.02-0.05) ng/mL Total Protein 7.4 (6.4-8.2) g/dL Albumin 2.9 L (3.4-5.0) g/dL 04/30/18 04/30/18 04/30/18 Range/Units 09:08 11:35 12:31 WBC (4.0-11.0) th/mm3 RBC (4.50-5.90) mil/mm3 Hgb (13.0-17.0) gm/dL Hct (39.0-51.0) % MCV (80.0-100.0) fL MCH (27.0-34.0) pg MCHC (32.0-36.0) % RDW (11.6-17.2) % Plt Count (150-450) th/mm3 MPV (7.0-11.0) fL Prelim Diff (Auto) Neut % (Auto) (16.0-70.0) % Lymph % (Auto) (9.0-44.0) % [place] % (Auto) (0.0-8.0) % Eos % (Auto) (0.0-4.0) % Baso % (Auto) (0.0-2.0) % Neut # (Auto) (1.8-7.7) th/mm3 Lymph # (Auto) (1.0-4.8) th/mm3 [place] # (Auto) (0.0-0.9) th/mm3 Eos # (Auto) (0.0-0.4) th/mm3 Baso # (Auto) (0.0-0.2) th/mm3 WBC Differential Seg Neuts % (Manual) (16-70) % Band Neuts % (Manual) (0-6) % Monocytes % (Manual) (0-8) % Metamyelocytes % (Man) (0-1) % Abs Neuts (Manual) (1.8-7.7) th/mm3 Differential Comment Toxic Vacuolation (None) Platelet Estimate (Normal) Platelet Morphology (Normal) RBC Morphology (Normal) Puncture Site Left radial Patient Temperature 98.6 O2 Saturation 97 (90-100) % ABG pH 7.53 H* (7.380-7.420) ABG pCO2 22 L* (38-42) mmHg ABG pO2 102 (61-120) mmHg ABG HCO3 18 L (22-26) mmol/L ABG O2 Content 19.1 (12.0-20.0) Vol % ABG Base Excess -4.6 L (-2-2) mmol/L ABG Methemoglobin 0.6 (0-2) % Jeremiah Test Y Hemoglobin 14.0 (12.0-16.0) G/DL Carboxyhemoglobin 1.1 (0-4) % O2 Delivery Device Ra Inspired O2 21 % Critical Value Yes Sodium (136-145) meq/L Potassium (3.5-5.1) meq/L Chloride (98-107) meq/L Carbon Dioxide (21.0-32.0) meq/L Anion Gap (5-15) meq/L BUN (7-18) mg/dL Creatinine (0.60-1.30) mg/dL Estimated GFR (>89) mL/min Random Glucose (74-106) mg/dL Lactic Acid (0.4-2.0) mmol/L Calcium (8.5-10.1) mg/dL Magnesium (1.5-2.5) mg/dL Total Bilirubin (0.2-1.0) mg/dL AST (15-37) U/L ALT (12-78) U/L Alkaline Phosphatase (45-117) U/L Ammonia Less than 10 L (11-32) mcmol/L Total Creatine Kinase 748 H (39-308) U/L CK-MB (CK-2) 7.1 H (0.5-3.6) ng/mL CK-MB (CK-2) % 0.9 (0.0-4.0) % Troponin I 3.76 H* (0.02-0.05) ng/mL Total Protein (6.4-8.2) g/dL Albumin (3.4-5.0) g/dL 04/30/18 Range/Units 12:31 WBC (4.0-11.0) th/mm3 RBC (4.50-5.90) mil/mm3 Hgb (13.0-17.0) gm/dL Hct (39.0-51.0) % MCV (80.0-100.0) fL MCH (27.0-34.0) pg MCHC (32.0-36.0) % RDW (11.6-17.2) % Plt Count (150-450) th/mm3 MPV (7.0-11.0) fL Prelim Diff (Auto) Neut % (Auto) (16.0-70.0) % Lymph % (Auto) (9.0-44.0) % [place] % (Auto) (0.0-8.0) % Eos % (Auto) (0.0-4.0) % Baso % (Auto) (0.0-2.0) % Neut # (Auto) (1.8-7.7) th/mm3 Lymph # (Auto) (1.0-4.8) th/mm3 [place] # (Auto) (0.0-0.9) th/mm3 Eos # (Auto) (0.0-0.4) th/mm3 Baso # (Auto) (0.0-0.2) th/mm3 WBC Differential Seg Neuts % (Manual) (16-70) % Band Neuts % (Manual) (0-6) % Monocytes % (Manual) (0-8) % Metamyelocytes % (Man) (0-1) % Abs Neuts (Manual) (1.8-7.7) th/mm3 Differential Comment Toxic Vacuolation (None) Platelet Estimate (Normal) Platelet Morphology (Normal) RBC Morphology (Normal) Puncture Site Patient Temperature O2 Saturation (90-100) % ABG pH (7.380-7.420) ABG pCO2 (38-42) mmHg ABG pO2 (61-120) mmHg ABG HCO3 (22-26) mmol/L ABG O2 Content (12.0-20.0) Vol % ABG Base Excess (-2-2) mmol/L ABG Methemoglobin (0-2) % Jeremiah Test Hemoglobin (12.0-16.0) G/DL Carboxyhemoglobin (0-4) % O2 Delivery Device Inspired O2 % Critical Value Sodium 140 (136-145) meq/L Potassium 3.1 L (3.5-5.1) meq/L Chloride 103 (98-107) meq/L Carbon Dioxide 23.4 (21.0-32.0) meq/L Anion Gap 14 (5-15) meq/L BUN 20 H (7-18) mg/dL Creatinine 1.16 (0.60-1.30) mg/dL Estimated GFR 70 L (>89) mL/min Random Glucose 98 (74-106) mg/dL Lactic Acid (0.4-2.0) mmol/L Calcium 7.8 L (8.5-10.1) mg/dL Magnesium 1.6 (1.5-2.5) mg/dL Total Bilirubin 1.3 H (0.2-1.0) mg/dL AST 64 H (15-37) U/L ALT 49 (12-78) U/L Alkaline Phosphatase 48 (45-117) U/L Ammonia (11-32) mcmol/L Total Creatine Kinase (39-308) U/L CK-MB (CK-2) (0.5-3.6) ng/mL CK-MB (CK-2) % (0.0-4.0) % Troponin I Cancelled (0.02-0.05) ng/mL Total Protein 6.4 D (6.4-8.2) g/dL Albumin 2.5 L (3.4-5.0) g/dL Imaging Data Radiologist's impression: Chest X-Ray 04/30/18 08:48 CONCLUSION: Negative examination. Discharge Plan Discharge Disposition Patient Disposition: 30 Still Patient Discharge Condition Condition: Stable Discharge Details Diagnosis: Sepsis, Non-ST elevation MS (NSTEMI), Polysubstance abuse, Dehydration Physicians Team ED Provider: Guido Cosby ED Midlevel Provider: Saray Reynoso Primary Care Provider: Primary Care Nora Jorge Attending Provider: Yevgeniy Mckee Other Providers: Jose M Martines Alexandra Status ED Status: Left Department Discharge Information Discharge Date/Time: 04/30/18 14:04
--- NOTE | 2018-04-30 09:16 | XR ---
EXAM DATE: 04/30/2018 9:10 AM EDT AGE/SEX: 38 years / Male INDICATIONS: Shortness of breath. CLINICAL DATA: This is the patient's initial encounter. Patient reports that signs and symptoms have been present for 1 day and indicates a pain score of Nonresponsive. MEDICAL/SURGICAL HISTORY: . IVDU. None. COMPARISON: DL, CHEST SINGLE AP, 07/12/2017. . FINDINGS: A single AP view of the chest demonstrates the lungs to be symmetrically aerated without evidence of mass, infiltrate or effusion. The cardiomediastinal contours are unremarkable. Osseous structures a re intact. CONCLUSION: Negative examination. Electronically signed by: René Lebron MD 04/30/2018 9:15 AM EDT
[2018-04-30 09:26] LABS: Baso # (Auto) 0.1 th/mm3 (0.0-0.2); Baso % (Auto) 0.4 % (0.0-2.0); Eos % (Auto) 0.1 % (0.0-4.0); Hematocrit 43.2 % (39.0-51.0); Hemoglobin 14.8 gm/dL (13.0-17.0); Lymph # (Auto) 0.2 th/mm3 (1.0-4.8); Mean Corpuscular HGB Conc 34.2 % (32.0-36.0); Mean Corpuscular Volume 84.6 fL (80.0-100.0); Mono # (Auto) 1.4 th/mm3 (0.0-0.9); Mono % (Auto) 8.4 % (0.0-8.0); Neut # (Auto) 14.5 th/mm3 (1.8-7.7); Neut % (Auto) 90.1 % (16.0-70.0); Platelet Count 133 th/mm3 (150-450); Red Blood Count 5.11 mil/mm3 (4.50-5.90); Red Cell Distribution Width 13.8 % (11.6-17.2); White Blood Count 16.1 th/mm3 (4.0-11.0)
[2018-04-30 09:40] LABS: Albumin 2.9 g/dL (3.4-5.0); Anion Gap 11 meq/L (5-15); Aspartate Aminotransferase 69 U/L (15-37); Blood Urea Nitrogen 22 mg/dL (7-18); Calcium 8.5 mg/dL (8.5-10.1); Carbon Dioxide 25.2 meq/L (21.0-32.0); Chloride 98 meq/L (98-107); Glomerular Filtration Rate 80 mL/min (>89); Glucose,Random 127 mg/dL (74-106); Potassium 3.1 meq/L (3.5-5.1); Sodium 134 meq/L (136-145)
[2018-04-30 09:42] LABS: Alanine Aminotransferase 62 U/L (12-78)
[2018-04-30 09:43] LABS: Alkaline Phosphatase 59 U/L (45-117); Creatine Kinase 592 U/L (39-308); Total Protein 7.4 g/dL (6.4-8.2)
[2018-04-30 09:58] LABS: CKMB Percent 1.3 % (0.0-4.0); Creatine Kinase MB 7.9 ng/mL (0.5-3.6)
[2018-04-30 10:17] LABS: Metamyelocytes 1 % (0-1); Monocytes 6 % (0-8); RBC Morphology Normal (Normal)
[2018-04-30 10:18] LABS: Platelet Morphology Normal (Normal); Toxic Vacuolation Present
[2018-04-30 10:45] LABS: Troponin I 3.34 ng/mL (0.02-0.05)
[2018-04-30] MEDS ORDERED: Piperacil/Tazo 3.375 GM Premix 50 ML IV.SIG ONE (10:56)
[2018-04-30] MEDS ORDERED: Vancomycin Inj 1 GM/200 ML PIGGYBACK IV.SIG ONE (10:56)
[2018-04-30] MEDS ORDERED: Potassium Chlor 20 mEq Premix 20 MEQ/100 ML PIGGYBACK IV.SIG ONE (11:03)
[2018-04-30] MEDS ORDERED: Bisacodyl 10 MG Supp RECTAL PRN (11:27)
[2018-04-30] MEDS ORDERED: Vancomycin Consult Pharmacy OTHER PRN (11:29)
[2018-04-30] MEDS ORDERED: Vancomycin Inj 1,000 MG in Sodium Chlor 0.9% Inj 250 ML IV.SIG ONE (11:30)
[2018-04-30] MEDS ORDERED: Potassium Phosphate 500 MG Soluble Tablet PO PRN ×2 (11:31)
[2018-04-30] MEDS ORDERED: Magnesium Sulfate Inj 2 GM in Sodium Chlor 0.9% Inj 96 ML IV.SIG PRN (11:31)
[2018-04-30] MEDS ORDERED: Potassium Chlor 40 mEq Premix 40 MEQ/100 ML PIGGYBACK IV.SIG PRN ×2 (11:31)
[2018-04-30] MEDS ORDERED: Potassium Chlor 20 mEq Premix 20 MEQ/100 ML PIGGYBACK IV.SIG PRN (11:31)
[2018-04-30] MEDS ORDERED: Sodium Phosphate Inj 30 MMOL in Sodium Chlor 0.9% Inj 250 ML IV.SIG PRN (11:31)
[2018-04-30] MEDS ORDERED: Magnesium Oxide 400 MG Tablet PO PRN (11:31)
[2018-04-30] MEDS ORDERED: Potassium Chloride 25 MEQ Effervescent Tablet PO PRN (11:31)
[2018-04-30] MEDS ORDERED: Potassium Phosphate Inj 30 MMOL in Sodium Chlor 0.9% Inj 250 ML IV.SIG PRN (11:31)
[2018-04-30] MEDS ORDERED: Magnesium Sulfate Inj 4 GM in Sodium Chlor 0.9% Inj 92 ML IV.SIG PRN (11:31)
[2018-04-30] MEDS ORDERED: Dextrose 50% in Water 50 ML Vial IV.PUSH PRN (11:32)
[2018-04-30 11:59] LABS: ABG Base Excess -4.6 mmol/L (-2-2); ABG PCO2 22 mmHg (38-42); ABG PO2 102 mmHg (61-120)
[2018-04-30] MEDS ORDERED: Piperacil/Tazo 4.5 GM Premix 4.5 GM/100 ML BAG IV.SIG SCH (12:00)
--- NOTE | 2018-04-30 13:07 | P.HPCC ---
History of Present Illness Service: Critical care Primary Care Physician: No Primary Care Physician Chief Complaint: AMS, abd pain History of Present Illness: Patient is 30-year-old male with history of IV drug use, prev endocarditis, Hepatitis C, who presented to the emergency department via [facility] from [place] for acute psychosis and altered mental status. CT of the head done at [place] was negative for acute findings. Patient was very confused and delirious at [facility] ED. His last IV drug use of heroin was 5 days ago. Urine drug screen is pending at this time. ER workup showed multiple abnormalities, pertinent ones being a white count of 16.1 with left shift, troponin 3.24, lactic acid 3.1, CPK of 592, potassium of 3.1. Received 3 L of normal saline in the ED and was given Zosyn and vancomycin. I evaluated the patient in the emergency department. He is confused delirious oriented to person only. He is very tachycardic and dry. Patient appears very critical and septic. With IV drug use patient most likely has recurrence of infective endocarditis. Cardiology consult as well as ID consult had been requested. I will give additional 1 L fluid bolus and continue vancomycin and Zosyn. I will place on Precedex. 2D echo is pending at this time - Diagnosis (1) Severe sepsis (2) Acute metabolic encephalopathy (3) Delirium (4) Drug withdrawal (5) Lactic acidosis (6) Hypokalemia (7) Rhabdomyolysis (8) Non-ST elevation MT (NSTEMI) (9) Polysubstance abuse (10) Dehydration Inpatient Certification: I certify that the inpatient services were ordered in accordance with Medicare regulations governing the order. This includes certification that hospital inpatient services are reasonable and necessary and in the case of services not specified as inpatient-only under 42 CFR 419.22(n), that they are appropriately provided as inpatient services in accordance to with the 2-midnight benchmark under 43 CFR 412.3(e) Estimated Total Length of Stay (Days): 4 Plans for Post Hospital Care: Not yet determined 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 - Medical History Medical History: Medical History (Last Reviewed 04/30/18 @ 13:09 by Bijan Arellano MD) Heroin abuse Hepatitis C virus - Tobacco History Second Hand Smoke Exposure: No Tobacco Use In Past 30 Days: No Smoking Status: Cognitive impairment Tobacco Type: Cigarettes - Alcohol History How Often Do You Have a Drink Containing Alcohol: Unable to Obtain - Substance Use History Substance History: Active Abuse - Substance Use Type Heroin Status: Active Route Used: Intravenously Frequency: weekly; used prior to admission on 04-30-18 Reason for Use: Feels Good - Travel History Recent Travel in the [place] Within the Last 8 Weeks: No Recent Travel Out of the Country Within the Last 8 Weeks: No - Immunization History Tetanus Immunization: Unable to Assess Hx Influenza Vaccine This Season: Unable to Assess Medications and Allergies Active Medications: Active Medications Al Hydroxide/Mg Hydroxide (Milk Of Magnrenea Liq) 30 ml PO Q12H PRN PRN Reason: Mild Constipation Albuterol (Duoneb Neb (Alison)) 1 ampul NEB Q6HR NEB ALISON Last Admin: 04/30/18 11:43 Dose: Not Given Bisacodyl (Dulcolax Supp) 10 mg RECTAL DAILY PRN PRN Reason: SEVERE CONSITIPATION Chlorhexidine Gluconate (Chlorhexidine 2% Cloth) 3 pack TOPICAL DAILY@0400 ALISON Stop: 05/06/18 03:59 Chlorhexidine Gluconate (Chlorhexidine 2% Cloth) 3 pack TOPICAL DAILY@0400 PRN PRN Reason: Extra cloth needed Stop: 05/06/18 03:59 Dextrose (D50w Vial) 50 ml IV.PUSH UNSCH PRN PRN Reason: PER HYPOGLYCEMIA PROTOCOL Famotidine (Pepcid Pf Inj) 20 mg IV.PUSH Q12HR ALISON Glucagon (Glucagon Inj) 1 mg OTHER PRN PRN PRN Reason: for Hypoglycemia Protocol Sodium Chloride (Ns Inj) 1,000 mls @ 0 mls/hr IV.SIG BOLUS ALISON Sodium Chloride (Ns Inj) 1,000 mls @ 0 mls/hr IV.SIG BOLUS ALISON Stop: 05/01/18 09:16 Sodium Chloride (Ns Inj) 1,000 mls @ 0 mls/hr IV.SIG BOLUS ALISON Magnesium Sulfate Inj 4 gm/ (Sodium Chloride) 100 mls @ 50 mls/hr IV.SIG UNSCH PRN PRN Reason: For Magnesium 0.9 - 1.1 mg/dL Magnesium Sulfate Inj 2 gm/ (Sodium Chloride) 100 mls @ 50 mls/hr IV.SIG UNSCH PRN PRN Reason: For Magnesium 1.2 - 1.6 mg/dL Sodium Chloride (Ns Inj) 1,000 mls @ 100 mls/hr IV.CONT .Q10H ALISON Potassium Chloride (Kcl 40 Meq Premix Inj) 40 meq in 100 mls @ 25 mls/hr IV.SIG Q2H PRN PRN Reason: For Potassium 2.8 - 3.2 mEq/L Potassium Chloride (Kcl 40 Meq Premix Inj) 40 meq in 100 mls @ 25 mls/hr IV.SIG UNSCH PRN PRN Reason: For Potassium 3.3 - 3.5 mEq/L Potassium Chloride (Kcl 20 Meq Premix Inj) 20 meq in 100 mls @ 50 mls/hr IV.SIG Q2H PRN PRN Reason: For Potassium 2.8 - 3.2 mEq/L Potassium Phosphate 30 mmol/ (Sodium Chloride) 260 mls @ 42 mls/hr IV.SIG UNSCH PRN PRN Reason: SEE LABEL COMMENTS Piperacillin/Tazobactam/Dextrose (Zosyn 4.5 Gm Premix) 4.5 gm in 100 mls @ 200 mls/hr IV.SIG Q6H ALISON Last Admin: 04/30/18 12:23 Dose: Not Given Potassium Chloride (Kcl 20 Meq Premix Inj) 20 meq in 100 mls @ 50 mls/hr IV.SIG Q2H PRN PRN Reason: For Potassium 3.3 - 3.5 mEq/L Sodium Phosphate 30 mmol/ (Sodium Chloride) 260 mls @ 42 mls/hr IV.SIG UNSCH PRN PRN Reason: For Phosphorus < 2.5 mg/dL Vancomycin HCl 1,250 mg/ (Sodium Chloride) 262.5 mls @ 250 mls/hr IV.SIG Q12H ALISON Insulin Aspart (Novolog Insulin Correctional Sugar Inj) 0 unit SQ Q6HR ALISON; Protocol Lactulose (Lactulose Liq) 30 ml PO DAILY PRN PRN Reason: SEVERE CONSITIPATION Magnesium Oxide (Mag-Ox) 800 mg PO UNSCH PRN PRN Reason: For Magnesium 1.2 - 1.6 mg/dL Miscellaneous Information ([facility] [place]dered [facility] Info) 0 each OTHER ONCE ONE Stop: 05/01/18 22:46 Pharmacy Profile Note (Vancomycin Consult Pharmacy) 1 each OTHER UNSCH PRN PRN Reason: Pharmacy to dose Potassium Bicarb/Potassium Chloride (K-Lyte Cl Eff) 50 meq PO UNSCH PRN PRN Reason: For Potassium 3.3 - 3.5 mEq/L Potassium Phosphate (K-Phos Original) 2,000 mg PO Q4H PRN PRN Reason: Phosphorus Less Than 2.5 mg/dL Potassium Phosphate (K-Phos Original) 2,000 mg PO UNSCH PRN PRN Reason: SEE LABEL COMMENTS Senna/Docusate Sodium (Angle-Colace) 1 tab PO BID ALISON Sennosides (Senokot) 17.2 mg PO Q12H PRN PRN Reason: Moderate Constipation Sodium Chloride (Ns Flush) 2 ml IV.FLUSH PRN PRN PRN Reason: FLUSH AFTER USING IV ACCESS Allergies Allergy/AdvReac Type Severity Reaction Status Date / Time No Known Allergies Allergy Unknown Uncoded 07/13/17 00:28 Results - Labs CBC & Chem 7: 04/30/18 09:08 04/30/18 12:31 Labs: Short CBC 04/30/18 Range/Units 09:08 WBC 16.1 H (4.0-11.0) th/mm3 Hgb 14.8 (13.0-17.0) gm/dL Hct 43.2 (39.0-51.0) % Plt Count 133 L (150-450) th/mm3 BMP 04/30/18 09:08 Sodium 134 L Potassium 3.1 L Chloride 98 Carbon Dioxide 25.2 BUN 22 H Creatinine 1.04 Calcium 8.5 Cardiac Enzymes 04/30/18 Range/Units 09:08 Total Creatine Kinase 592 H (39-308) U/L CK-MB (CK-2) 7.9 H (0.5-3.6) ng/mL Troponin I 3.34 H* (0.02-0.05) ng/mL Liver Function 04/30/18 Range/Units 09:08 Total Bilirubin 1.5 H (0.2-1.0) mg/dL AST 69 H (15-37) U/L ALT 62 (12-78) U/L Alkaline Phosphatase 59 (45-117) U/L Albumin 2.9 L (3.4-5.0) g/dL - Imaging Impressions Chest X-Ray 04/30/18 08:48 CONCLUSION: Negative examination. Exam Vital signs: Vital Signs 04/30/18 08:46 04/30/18 09:18 09/03/18 09:19 Temperature 98.8 F Pulse Rate 119 H Respiratory Rate 18 Blood Pressure 103/78 Pulse Oximetry 99 98 99 04/30/18 10:20 04/30/18 11:03 04/30/18 12:25 Temperature Pulse Rate 120 H 128 H 123 H Respiratory Rate 28 H 18 18 Blood Pressure 115/77 115/77 112/69 Pulse Oximetry 99 99 Intake & Output 04/29/18 04/30/18 04/30/18 18:59 06:59 18:59 Weight 90.718 kg Narrative: GENERAL: 38-year-old male who is ill-appearing tachycardic SKIN: Warm/dry. Multiple tattoos HEAD: Atraumatic. Normocephalic. EYES: Pupils equal and round. No scleral icterus. ENT: No nasal bleeding or discharge. Mucous membranes dry. NECK: Trachea midline. No JVD. CARDIOVASCULAR: Tachycardic rate and rhythm. No murmur appreciated. RESPIRATORY: No accessory muscle use. Clear to auscultation. Breath sounds equal bilaterally. GASTROINTESTINAL: Abdomen soft, mild tenderness in epigastric region, nondistended. Hepatic and splenic margins not palpable. MUSCULOSKELETAL: No obvious deformities. No clubbing. NEUROLOGICAL: Awake and able to state his name but otherwise very confused. Garbled speech. Moving all 4 extremities no focal deficits Septic Shock Reassessment Septic shock perfusion: reassessment completed Caprini VTE Risk Assessment Caprini VTE Risk Assessment: Moderate/High Risk (score >= 2) Caprini Risk Assessment Model: Point Value = 1 Point Value = 2 Point Value = 3 Point Value = 5 Age 41-60 Minor surgery BMI > 25 kg/m2 Swollen legs Varicose veins or History of unexplained or recurrent spontaneous Oral contraceptives or hormone replacement Sepsis (< 1 month) Serious lung disease, including pneumonia (< 1 month) Abnormal pulmonary function Acute myocardial infarction Congestive heart failure (< 1 month) History of inflammatory bowel disease Medical patient at bed rest Age 61-74 Arthroscopic surgery Major open surgery (> 45 min) Laparoscopic surgery (> 45 min) Malignancy Confined to bed (> 72 hours) Immobilizing plaster cast Central venous access Age >= 75 History of VTE Family history of VTE Factor V Leiden Prothrombin 25356C Lupus anticoagulant Anticardiolipin antibodies Elevated serum homocysteine Heparin-induced thrombocytopenia Other congenital or acquired thrombophilia Stroke (< 1 month) Elective arthroplasty Hip, pelvis, or leg fracture Acute spinal cord injury (< 1 month) Prophylaxis Regimen: Total Risk Factor Score Risk Level Prophylaxis Regimen 0-1 Low Early ambulation 2 Moderate Order ONE of the following: *Sequential Compression Device (SCD) *Heparin 5000 units SQ BID 3-4 Higher Order ONE of the following medications: *Heparin 5000 units SQ TID *Enoxaparin/Lovenox 40 mg SQ daily (WT < 150 kg, CrCl > 30 mL/min) *Enoxaparin/Lovenox 30 mg SQ daily (WT < 150 kg, CrCl > 10-29 mL/min) *Enoxaparin/Lovenox 30 mg SQ BID (WT < 150 kg, CrCl > 30 mL/min) AND/OR *Sequential Compression Device (SCD) 5 or more Highest Order ONE of the following medications: *Heparin 5000 units SQ TID (Preferred with Epidurals) *Enoxaparin/Lovenox 40 mg SQ daily (WT < 150 kg, CrCl > 30 mL/min) *Enoxaparin/Lovenox 30 mg SQ daily (WT < 150 kg, CrCl > 10-29 mL/min) *Enoxaparin/Lovenox 30 mg SQ BID (WT < 150 kg, CrCl > 30 mL/min) AND *Sequential Compression Device (SCD) Assessment and Plan - Problem List (1) Severe sepsis Code(s): A41.9 - Sepsis, unspecified organism; R65.20 - Severe sepsis without septic shock Status: Acute (2) Acute metabolic encephalopathy Code(s): G93.41 - Metabolic encephalopathy Status: Acute (3) Delirium Code(s): R41.0 - Disorientation, unspecified Status: Acute (4) Drug withdrawal Code(s): F19.939 - Other psychoactive substance use, unspecified with withdrawal , unspecified Status: Acute (5) Lactic acidosis Code(s): E87.2 - Acidosis Status: Acute (6) Hypokalemia Code(s): E87.6 - Hypokalemia Status: Acute (7) Rhabdomyolysis Code(s): M62.82 - Rhabdomyolysis Status: Acute (8) Non-ST elevation MT (NSTEMI) Code(s): I21.4 - Non-ST elevation (NSTEMI) myocardial infarction Status: Acute (9) Polysubstance abuse Code(s): F19.10 - Other psychoactive substance abuse, uncomplicated Status: Acute (10) Dehydration Code(s): E86.0 - Dehydration Status: Acute - Assessment and Plan Plan: NEURO: Acute metabolic encephalopathy Delirium Polysubstance abuse with withdrawal -Precedex for sedation and vent synchrony -Watch closely for drug withdrawal -Supplement multivitamin thiamine RESP: Respiratory insufficiency -DuoNeb every 6 hours as needed -Sputum culture if available CV: Lactic acidosis NSTEMI Probable infective endocarditis -Normal saline IV fluids 4L bolus and 125 ml per hour -Check 2d echo, cardiology consult, serial troponin, serial lactic acid -Start aspirin carvedilol. Avoid statins at this time due to hep C -Elevated troponin may be secondary to infected coronary artery emboli GI: Hepatitis C -N.p.o., IV famotidine : Renal insufficiency -Monitor renal function closely. [place] catheter. Fluid resuscitation as above ID: Severe sepsis Probable infective endocarditis -Antibiotics with vancomycin and Zosyn, ID consult -Blood urine and sputum cultures HEME: -Monitor CBC, coags ENDO: -Electrolyte replacement per protocol -Sliding scale insulin PROPH: -Bilateral lower extremity SCDs. Lovenox/famotidine LINES: -Utilize peripheral IVs, central line if needed CC time 42 min Code Status: Full
[2018-04-30 13:13] LABS: Troponin I 3.76 ng/mL (0.02-0.05)
[2018-04-30 13:26] LABS: CKMB Percent 0.9 % (0.0-4.0); Creatine Kinase MB 7.1 ng/mL (0.5-3.6)
[2018-04-30 13:49] LABS: Alanine Aminotransferase 49 U/L (12-78); Albumin 2.5 g/dL (3.4-5.0); Anion Gap 14 meq/L (5-15); Aspartate Aminotransferase 64 U/L (15-37); Blood Urea Nitrogen 20 mg/dL (7-18); Calcium 7.8 mg/dL (8.5-10.1); Carbon Dioxide 23.4 meq/L (21.0-32.0); Chloride 103 meq/L (98-107); Glomerular Filtration Rate 70 mL/min (>89); Glucose,Random 98 mg/dL (74-106); Magnesium 1.6 mg/dL (1.5-2.5); Potassium 3.1 meq/L (3.5-5.1); Sodium 140 meq/L (136-145)
[2018-04-30 13:53] LABS: Alkaline Phosphatase 48 U/L (45-117); Total Protein 6.4 g/dL (6.4-8.2)
[2018-04-30] MEDS: Sod Chloride 0.9% Inj 1,000 ML IV.CONT SCH (14:14)
[2018-04-30] MEDS: Vancomycin Inj 1,250 MG in Sodium Chlor 0.9% Inj 250 ML IV.SIG SCH ×2 (14:19→22:30)
[2018-04-30] MEDS: Dexmedetomidine Inj 200 MCG in Sodium Chlor 0.9% Inj 48 ML IV.CONT PRN ×3 (14:43→22:46)
[2018-04-30] MEDS: Insulin NovoLOG Aspart Correctional Sugar Inj SQ SCH ×2 (14:44→18:50)
[2018-04-30 16:08] LABS: Bacteria,Urine Rare /hpf; Bilirubin,Urine Negative (Negative); Clarity,Urine Hazy (Clear); Color,Urine Yellow (Yellw/Straw); Glucose,Urine (UA) Negative (Negative); Leukocyte Esterase,Urine Trace (Negative); Nitrite,Urine Negative (Negative); Specific Gravity,Urine 1.013 (1.002-1.035)
--- NOTE | 2018-04-30 16:34 | P.CONID ---
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 - Medical History Medical History: Medical History (Last Reviewed 04/30/18 @ 16:25 by Naye Lucio MD) Heroin abuse Hepatitis C virus - Tobacco History Second Hand Smoke Exposure: No Tobacco Use In Past 30 Days: No Smoking Status: Cognitive impairment Tobacco Type: Cigarettes - Alcohol History How Often Do You Have a Drink Containing Alcohol: Unable to Obtain - Substance Use History Substance History: Active Abuse - Substance Use Type Heroin Status: Active Route Used: Intravenously Frequency: weekly; used prior to admission on 04-30-18 Reason for Use: Feels Good - Travel History Recent Travel in the [place] Within the Last 8 Weeks: No Recent Travel Out of the Country Within the Last 8 Weeks: No - Immunization History Tetanus Immunization: Unable to Assess Hx Influenza Vaccine This Season: Unable to Assess Medications and Allergies Active Medications: Active Medications Al Hydroxide/Mg Hydroxide (Milk Of Joselin Peoples) 30 ml PO Q12H PRN PRN Reason: Mild Constipation Aspirin (Aspirin Chew) 81 mg PO DAILY [facility] Last Admin: 04/30/18 14:58 Dose: Not Given Bisacodyl (Dulcolax Supp) 10 mg RECTAL DAILY PRN PRN Reason: SEVERE CONSITIPATION Carvedilol (Coreg) 3.125 mg PO BID [facility] Chlorhexidine Gluconate (Chlorhexidine 2% Cloth) 3 pack TOPICAL DAILY@0400 STEFFANIE Stop: 05/06/18 03:59 Chlorhexidine Gluconate (Chlorhexidine 2% Cloth) 3 pack TOPICAL DAILY@0400 PRN PRN Reason: Extra cloth needed Stop: 05/06/18 03:59 Dextrose (D50w Vial) 50 ml IV.PUSH UNSCH PRN PRN Reason: PER HYPOGLYCEMIA PROTOCOL Famotidine (Pepcid Pf Inj) 20 mg IV.PUSH Q12HR STEFFANIE Glucagon (Glucagon Inj) 1 mg OTHER PRN PRN PRN Reason: for Hypoglycemia Protocol Sodium Chloride (Ns Inj) 1,000 mls @ 0 mls/hr IV.SIG BOLUS STEFFANIE Sodium Chloride (Ns Inj) 1,000 mls @ 0 mls/hr IV.SIG BOLUS STEFFANIE Stop: 05/01/18 09:16 Sodium Chloride (Ns Inj) 1,000 mls @ 0 mls/hr IV.SIG BOLUS STEFFANIE Magnesium Sulfate Inj 4 gm/ (Sodium Chloride) 100 mls @ 50 mls/hr IV.SIG UNSCH PRN PRN Reason: For Magnesium 0.9 - 1.1 mg/dL Magnesium Sulfate Inj 2 gm/ (Sodium Chloride) 100 mls @ 50 mls/hr IV.SIG UNSCH PRN PRN Reason: For Magnesium 1.2 - 1.6 mg/dL Sodium Chloride (Ns Inj) 1,000 mls @ 100 mls/hr IV.CONT .Q10H [facility] Last Admin: 04/30/18 14:14 Dose: 100 mls/hr Potassium Chloride (Kcl 40 Meq Premix Inj) 40 meq in 100 mls @ 25 mls/hr IV.SIG Q2H PRN PRN Reason: For Potassium 2.8 - 3.2 mEq/L Potassium Chloride (Kcl 40 Meq Premix Inj) 40 meq in 100 mls @ 25 mls/hr IV.SIG UNSCH PRN PRN Reason: For Potassium 3.3 - 3.5 mEq/L Potassium Chloride (Kcl 20 Meq Premix Inj) 20 meq in 100 mls @ 50 mls/hr IV.SIG Q2H PRN PRN Reason: For Potassium 2.8 - 3.2 mEq/L Potassium Phosphate 30 mmol/ (Sodium Chloride) 260 mls @ 42 mls/hr IV.SIG UNSCH PRN PRN Reason: SEE LABEL COMMENTS Piperacillin/Tazobactam/Dextrose (Zosyn 4.5 Gm Premix) 4.5 gm in 100 mls @ 200 mls/hr IV.SIG Q6H [facility] Last Admin: 04/30/18 12:23 Dose: Not Given Potassium Chloride (Kcl 20 Meq Premix Inj) 20 meq in 100 mls @ 50 mls/hr IV.SIG Q2H PRN PRN Reason: For Potassium 3.3 - 3.5 mEq/L Sodium Phosphate 30 mmol/ (Sodium Chloride) 260 mls @ 42 mls/hr IV.SIG UNSCH PRN PRN Reason: For Phosphorus < 2.5 mg/dL Vancomycin HCl 1,250 mg/ (Sodium Chloride) 262.5 mls @ 250 mls/hr IV.SIG Q12H STEFFANIE Last Admin: 04/30/18 14:19 Dose: 250 mls/hr Dexmedetomidine HCl 200 mcg/ (Sodium Chloride) 50 mls @ 4.53 mls/hr IV.CONT TITRATE PRN; Protocol PRN Reason: Per Protocol Last Admin: 04/30/18 14:43 Dose: 0.2 mcg/kg/hr, 4.53 mls/hr Sodium Chloride (Ns Inj) 1,000 mls @ 0 mls/hr IV.SIG BOLUS STEFFANIE Insulin Aspart (Novolog Insulin Correctional Sugar Inj) 0 unit SQ Q6HR STEFFANIE; Protocol Last Admin: 04/30/18 14:44 Dose: Not Given Lactulose (Lactulose Liq) 30 ml PO DAILY PRN PRN Reason: SEVERE CONSITIPATION Magnesium Oxide (Mag-Ox) 800 mg PO UNSCH PRN PRN Reason: For Magnesium 1.2 - 1.6 mg/dL Miscellaneous Information ([facility] Ordered Lab Info) 0 each OTHER ONCE ONE Stop: 05/01/18 22:46 Pharmacy Profile Note (Vancomycin Consult Pharmacy) 1 each OTHER UNSCH PRN PRN Reason: Pharmacy to dose Potassium Bicarb/Potassium Chloride (K-Lyte Cl Eff) 50 meq PO UNSCH PRN PRN Reason: For Potassium 3.3 - 3.5 mEq/L Potassium Phosphate (K-Phos Original) 2,000 mg PO Q4H PRN PRN Reason: Phosphorus Less Than 2.5 mg/dL Potassium Phosphate (K-Phos Original) 2,000 mg PO UNSCH PRN PRN Reason: SEE LABEL COMMENTS Senna/Docusate Sodium (Angle-Colace) 1 tab PO BID STEFFANIE Sennosides (Senokot) 17.2 mg PO Q12H PRN PRN Reason: Moderate Constipation Sodium Chloride (Ns Flush) 2 ml IV.FLUSH PRN PRN PRN Reason: FLUSH AFTER USING IV ACCESS Allergies Allergy/AdvReac Type Severity Reaction Status Date / Time No Known Allergies Allergy Unknown Uncoded 07/13/17 00:28 Exam Vital signs: Vital Signs 04/30/18 08:46 04/30/18 09:18 04/30/18 09:19 Temperature 98.8 F Pulse Rate 119 H Respiratory Rate 18 Blood Pressure 103/78 Pulse Oximetry 99 98 99 04/30/18 10:20 04/30/18 11:03 04/30/18 12:25 Temperature Pulse Rate 120 H 128 H 123 H Respiratory Rate 28 H 18 18 Blood Pressure 115/77 115/77 112/69 Pulse Oximetry 99 99 04/30/18 13:45 04/30/18 14:00 04/30/18 14:04 Temperature 99.8 F H 99.8 F H Pulse Rate 127 H 125 H Respiratory Rate 35 H 27 H 28 H Blood Pressure 111/71 111/71 Pulse Oximetry 96 04/30/18 15:00 04/30/18 16:00 Temperature 99.8 F H 99.7 F H Pulse Rate 126 H 134 H Respiratory Rate 24 24 Blood Pressure 127/77 128/90 Pulse Oximetry 99 99 Intake & Output 04/29/18 04/30/18 04/30/18 18:59 06:59 18:59 Intake Total 0 / 0 Output Total 275 / 275 Balance -275 / -275 Weight 80.5 kg Intake: Oral 0 / 0 Output: Urine Amount (Catheter) 275 / 275 Condom 275 / 275 Other: Date of Last Bowel Movement 04/30/18 # Bowel Movements 1 # Incontinent Bowel Movements 1 Weight On Admission 80.5 kg - Constitutional moderate distress, obese - Routine HEENT Exam Head: Present: normocephalic, atraumatic Eye: Present: EOMI, PERRL, conjunctival icterus ENT: Present: mucous membranes moist, oropharynx clear Comments: diffuse conjunctival petechia, b/l very poor dentition - Routine Neck Exam Present: supple, full ROM - Routine Respiratory Exam Present: decreased breath sounds, CTA bilaterally - Routine Cardiovascular Exam Comments: tachycardia no mumrurs, rubs or gallops - Routine Abdominal Exam Present: soft Comments: not tender not distended no hepatospelenomegaly or masses - Routine Skin Exam Present: petechiae, lesions ([place] , numerous) - Routine Neurological Exam lethargic to obtunded, responsd to stimuli with unintelligible speech garblesd speech moves all extremeties, nothing to command orineted x 0 - Routine Psychiatric Exam Present: unable to assess Results - Labs CBC & Chem 7: 04/30/18 09:08 04/30/18 12:31 Labs: Laboratory Results - last 24 hr 04/30/18 04/30/18 04/30/18 09:08 09:08 09:08 WBC 16.1 H RBC 5.11 Hgb 14.8 Hct 43.2 MCV 84.6 MCH 29.0 MCHC 34.2 RDW 13.8 Plt Count 133 L MPV 10.0 Prelim Diff (Auto) Slide review pending Neut % (Auto) 90.1 H Lymph % (Auto) 1.0 L [place] % (Auto) 8.4 H Eos % (Auto) 0.1 Baso % (Auto) 0.4 Neut # (Auto) 14.5 H Lymph # (Auto) 0.2 L [place] # (Auto) 1.4 H Eos # (Auto) 0.0 Baso # (Auto) 0.1 WBC Differential Manual diff final Seg Neuts % (Manual) 74 H Band Neuts % (Manual) 19 H Monocytes % (Manual) 6 Metamyelocytes % (Man) 1 Abs Neuts (Manual) 15.1 H Differential Comment . Toxic Vacuolation Present H Platelet Estimate Low L Platelet Morphology Normal RBC Morphology Normal Puncture Site Patient Temperature O2 Saturation ABG pH ABG pCO2 ABG pO2 ABG HCO3 ABG O2 Content ABG Base Excess ABG Methemoglobin Jeremiah Test Hemoglobin Carboxyhemoglobin O2 Delivery Device Inspired O2 Critical Value Sodium 134 L Potassium 3.1 L Chloride 98 Carbon Dioxide 25.2 Anion Gap 11 BUN 22 H Creatinine 1.04 Estimated GFR 80 L Random Glucose 127 H Lactic Acid 3.1 H Calcium 8.5 Magnesium Total Bilirubin 1.5 H AST 69 H ALT 62 Alkaline Phosphatase 59 Ammonia Total Creatine Kinase 592 H CK-MB (CK-2) 7.9 H CK-MB (CK-2) % 1.3 Troponin I 3.34 H* Total Protein 7.4 Albumin 2.9 L Urine Color Urine Clarity Urine pH Ur Specific [place] Urine Protein Urine Glucose (UA) Urine Ketones Urine Occult Blood Urine Nitrate Urine Bilirubin Urine Urobilinogen Ur Leukocyte Esterase Urine RBC Urine WBC Urine Bacteria Micro UA Comment Ur Microscopic Review Urine Culture Comments 04/30/18 04/30/18 04/30/18 09:08 11:35 12:31 WBC RBC Hgb Hct MCV MCH MCHC RDW Plt Count MPV Prelim Diff (Auto) Neut % (Auto) Lymph % (Auto) [place] % (Auto) Eos % (Auto) Baso % (Auto) Neut # (Auto) Lymph # (Auto) [place] # (Auto) Eos # (Auto) Baso # (Auto) WBC Differential Seg Neuts % (Manual) Band Neuts % (Manual) Monocytes % (Manual) Metamyelocytes % (Man) Abs Neuts (Manual) Differential Comment Toxic Vacuolation Platelet Estimate Platelet Morphology RBC Morphology Puncture Site Left radial Patient Temperature 98.6 O2 Saturation 97 ABG pH 7.53 H* ABG pCO2 22 L* ABG pO2 102 ABG HCO3 18 L ABG O2 Content 19.1 ABG Base Excess -4.6 L ABG Methemoglobin 0.6 Jeremiah Test Y Hemoglobin 14.0 Carboxyhemoglobin 1.1 O2 Delivery Device Ra Inspired O2 21 Critical Value Yes Sodium Potassium Chloride Carbon Dioxide Anion Gap BUN Creatinine Estimated GFR Random Glucose Lactic Acid Calcium Magnesium Total Bilirubin AST ALT Alkaline Phosphatase Ammonia Less than 10 L Total Creatine Kinase 748 H CK-MB (CK-2) 7.1 H CK-MB (CK-2) % 0.9 Troponin I 3.76 H* Total Protein Albumin Urine Color Urine Clarity Urine pH Ur Specific [place] Urine Protein Urine Glucose (UA) Urine Ketones Urine Occult Blood Urine Nitrate Urine Bilirubin Urine Urobilinogen Ur Leukocyte Esterase Urine RBC Urine WBC Urine Bacteria Micro UA Comment Ur Microscopic Review Urine Culture Comments 04/30/18 04/30/18 12:31 15:10 WBC RBC Hgb Hct MCV MCH MCHC RDW Plt Count MPV Prelim Diff (Auto) Neut % (Auto) Lymph % (Auto) [place] % (Auto) Eos % (Auto) Baso % (Auto) Neut # (Auto) Lymph # (Auto) [place] # (Auto) Eos # (Auto) Baso # (Auto) WBC Differential Seg Neuts % (Manual) Band Neuts % (Manual) Monocytes % (Manual) Metamyelocytes % (Man) Abs Neuts (Manual) Differential Comment Toxic Vacuolation Platelet Estimate Platelet Morphology RBC Morphology Puncture Site Patient Temperature O2 Saturation ABG pH ABG pCO2 ABG pO2 ABG HCO3 ABG O2 Content ABG Base Excess ABG Methemoglobin Jeremiah Test Hemoglobin Carboxyhemoglobin O2 Delivery Device Inspired O2 Critical Value Sodium 140 Potassium 3.1 L Chloride 103 Carbon Dioxide 23.4 Anion Gap 14 BUN 20 H Creatinine 1.16 Estimated GFR 70 L Random Glucose 98 Lactic Acid Calcium 7.8 L Magnesium 1.6 Total Bilirubin 1.3 H AST 64 H ALT 49 Alkaline Phosphatase 48 Ammonia Total Creatine Kinase CK-MB (CK-2) CK-MB (CK-2) % Troponin I Cancelled Total Protein 6.4 D Albumin 2.5 L Urine Color Yellow Urine Clarity Hazy H Urine pH 5.0 Ur Specific [place] 1.013 Urine Protein 30 H Urine Glucose (UA) Negative Urine Ketones Negative Urine Occult Blood Large H Urine Nitrate Negative Urine Bilirubin Negative Urine Urobilinogen 2.0 H Ur Leukocyte Esterase Trace H Urine RBC 18 H Urine WBC 31 H Urine Bacteria Rare H Micro UA Comment Culture indicated Ur Microscopic Review Not Reportable Urine Culture Comments Culture indicated - Imaging Impressions Chest X-Ray 04/30/18 08:48 CONCLUSION: Negative examination. Assessment and Plan - Plan Probable L sided (mitral and/or aortic) valve endocariditis Elevated troponin Suspected brain septic emboli Pt has difficulty speaking which appear new (per 06/2017 record he had clear speech) and per RN got worse thru the shift CT head w/o c negative @ 2300 Critically ill BRENDA, mild - CT brain w contrast - cont vanco, target trought level to 15-20 - change zosyn to cefepime - 2 D echo -AURELIA MRI in am hesham RN hesham Arellano
--- NOTE | 2018-04-30 18:15 | CT ---
EXAM DATE: 04/30/2018 6:07 PM EDT AGE/SEX: 38 years / Male INDICATIONS: Aleterd mental status. CLINICAL DATA: This is the patient's initial encounter. Patient reports that signs and symptoms have been present for 1 day and indicates a pain score of 0/10. MEDICAL/SURGICAL HISTORY: Hepatitis C. None. RADIATION DOSE: 66.03 CTDI (mGy) COMPARISON: [facility], CT HEAD W/O CONTRAST, 04/29/2018. . TECHNIQUE: CT of the head after intravenous administration of 100 ml Omnipaque 350 (iohexol) nonion ic water-soluble contrast as a cumulative dose for multiple exams. Using automated exposure control and adjustment of the mA and/or kV according to patient size, radiation dose was kept as low as reaso nably achievable to obtain optimal diagnostic quality images. DICOM format image data is available e lectronically for review and comparison. FINDINGS: There is no evidence for intracranial hemorrhage, mass effect, mass lesions, edema, or extra-axial fl uid collections. The visualized bony structures appear intact. The ventricles are normal size for t he patient's age. There are no signs of acute infarction for technique. There is extensive opacific ation of some of the ethmoid air cells and to a slight degree the rest of the visualized maxillary si nus and possible polyposis of the nasal cavity on the left side. CONCLUSION: Chronic sinusitis and possible nasal polyposis and otherwise brain CT is otherwise unrem arkable. Electronically signed by: Jordi Parekh MD 04/30/2018 6:14 PM EDT
[2018-04-30 18:17] LABS: Calcium 7.3 mg/dL (8.5-10.1); Carbon Dioxide 23.9 meq/L (21.0-32.0); Potassium 3.3 meq/L (3.5-5.1)
--- NOTE | 2018-04-30 18:19 | CT ---
EXAM DATE: 04/30/2018 6:10 PM EDT AGE/SEX: 38 years / Male INDICATIONS: Abdomen pain. CLINICAL DATA: This is the patient's initial encounter. Patient reports that signs and symptoms have been present for 1 day and indicates a pain score of 0/10. MEDICAL/SURGICAL HISTORY: Hepatitis C. None. RADIATION DOSE: 18.46 CTDI (mGy) ; Combined studies COMPARISON: No prior exams available for comparison. TECHNIQUE: Multiple contiguous axial images were obtained through the chest during bolus infusion of 100 ml Omnipaque 350 (iohexol) nonionic water-soluble contrast as a cumulative dose for multiple ex ams. Images were obtained in suspended respiration using multiple row detector helical technique. Using automated exposure control and adjustment of the mA and/or kV according to patient size, radiat ion dose was kept as low as reasonably achievable to obtain optimal diagnostic quality images. DICOM format image data is available electronically for review and comparison. FINDINGS: Approximate 2.7 cm groundglass opacity left upper lobe laterally most likely inflammatory and pneumon ia. Patchy areas of parenchymal infiltrates are present in the periphery of the right lung in additio n to anterior portion of the lingula as well. There are findings in the upper abdomen discussed on e patient's CT abdomen. There is no pleural effusion or any appreciable pathological adenopathy with in the mediastinum. CONCLUSION: 1. Parenchymal process bilaterally most likely inflammatory and pneumonia. Electronically signed by: Jordi Parekh MD 04/30/2018 6:17 PM EDT
--- NOTE | 2018-04-30 18:20 | CT ---
EXAM DATE: 04/30/2018 6:12 PM EDT AGE/SEX: 38 years / Male INDICATIONS: Abdomen pain. CLINICAL DATA: This is the patient's initial encounter. Patient reports that signs and symptoms have been present for 1 day and indicates a pain score of 0/10. MEDICAL/SURGICAL HISTORY: Hepatitis C. None. ORAL CONTRAST: No oral contrast ingested. RADIATION DOSE: 18.67 CTDI (mGy) ; Combined studies COMPARISON: No prior exams available for comparison. TECHNIQUE: Multiple contiguous axial images were obtained through the abdomen and pelvis following b olus infusion of 100 ml Omnipaque 350 (iohexol) nonionic water-soluble contrast as a single exam do se. No oral contrast ingested. Using automated exposure control and adjustment of the mA and/or kV a ccording to patient size, radiation dose was kept as low as reasonably achievable to obtain optimal d iagnostic quality images. DICOM format image data is available electronically for review and compari son. FINDINGS: Abdomen CT: The liver, pancreas, kidneys, adrenals are unremarkable. There is no evidence for any appreciable fr ee fluid, or bowel obstruction. There is an area of diminished enhancement involving the anterior po rtion of the spleen has the appearance of infarction. It measures almost 4.1 cm in size. There is haz iness extending to the fascial planes between the spleen and anterior margins of the kidney and perin ephric space. The etiology is uncertain possibly inflammatory process. There are shotty retroperitone al lymph nodes the largest measures 9 [address] in size. Pelvic CT: There is no evidence for mass, abscess formation, or any significant adenopathy within the pelvis. CONCLUSION: 1. 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 2. Haziness in the anterior margins of the perinephric space at the junction of the spleen possibly inflammatory process of uncertain etiology. Electronically signed by: Jordi Parekh MD 04/30/2018 6:19 PM EDT
[2018-04-30 19:07] LABS: Amphetamine Screen,Urine Neg (Neg); Barbiturate Screen,Urine Neg (Neg); Cannabinoid Screen,Urine Neg (Neg); Cocaine Screen,Urine Neg (Neg)
[2018-04-30 19:26] LABS: Opiate Screen,Urine Neg (Neg)
--- NOTE | 2018-04-30 21:40 | ECG ---
Date Performed: 04/30/2018 Time Performed: 09:30:53 PTAGE: 38 years EKG: SINUS TACHYCARDIA ABNORMAL RHYTHM ECG PREVIOUS TRACING : 07/13/2017 12.18 Compared to previous tracing, heart rate has increased. DOCTOR: Hiram Majano Interpretating Date/Time 04/30/2018 21:38:12
[2018-04-30] MEDS: Famotidine PF Inj 20 MG/2 ML Vial IV.PUSH SCH (21:49)
[2018-04-30] MEDS: Senna/Docusate Sodium 8.6/50 MG Tablet PO SCH (21:49)
--- NOTE | 2018-04-30 21:58 | P.CONCA ---
History of Present Illness Consult date: 04/30/18 Primary Care Provider: No Primary Care Physician Family Provider: No Primary Care Physician Chief Complaint: AMS History of Present Illness: Mr Wisdom is a gentleman with a past medical history of Hep C, IV drug abuse, remote history of endocarditis who presented with altered mental status, leukocytosis, and sepsis. Unfortunately, I am unable to obtain a history from the patient in his current state. In review of the records he had a cath in 2017 showing essentially normal coronaries and a recent TTE showing normal LV function. 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 - Medical History Medical History: Medical History (Last Reviewed 04/30/18 @ 16:25 by Naye Lucio MD) Heroin abuse Hepatitis C virus - Tobacco History Second Hand Smoke Exposure: No Tobacco Use In Past 30 Days: No Smoking Status: Cognitive impairment Tobacco Type: Cigarettes - Alcohol History How Often Do You Have a Drink Containing Alcohol: Unable to Obtain - Substance Use History Substance History: Active Abuse - Substance Use Type Heroin Status: Active Route Used: Intravenously Frequency: weekly; used prior to admission on 04-30-18 Reason for Use: Feels Good - Travel History Recent Travel in the [place] Within the Last 8 Weeks: No Recent Travel Out of the Country Within the Last 8 Weeks: No - Immunization History Tetanus Immunization: Unable to Assess Hx Influenza Vaccine This Season: Unable to Assess Medications and Allergies Active Medications: Active Medications Al Hydroxide/Mg Hydroxide (Milk Of Joselin Peoples) 30 ml PO Q12H PRN PRN Reason: Mild Constipation Aspirin (Aspirin Chew) 81 mg PO DAILY [facility] Last Admin: 04/30/18 14:58 Dose: Not Given Bisacodyl (Dulcolax Supp) 10 mg RECTAL DAILY PRN PRN Reason: SEVERE CONSITIPATION Carvedilol (Coreg) 3.125 mg PO BID [facility] Chlorhexidine Gluconate (Chlorhexidine 2% Cloth) 3 pack TOPICAL DAILY@0400 STEFFANIE Stop: 05/06/18 03:59 Chlorhexidine Gluconate (Chlorhexidine 2% Cloth) 3 pack TOPICAL DAILY@0400 PRN PRN Reason: Extra cloth needed Stop: 05/06/18 03:59 Dextrose (D50w Vial) 50 ml IV.PUSH UNSCH PRN PRN Reason: PER HYPOGLYCEMIA PROTOCOL Famotidine (Pepcid Pf Inj) 20 mg IV.PUSH Q12HR [facility] [place] Last Admin: 04/30/18 21:49 Dose: 20 mg Glucagon (Glucagon Inj) 1 mg OTHER PRN PRN PRN Reason: for Hypoglycemia Protocol Sodium Chloride (Ns Inj) 1,000 mls @ 0 mls/hr IV.SIG BOLUS STEFFANIE Sodium Chloride (Ns Inj) 1,000 mls @ 0 mls/hr IV.SIG BOLUS [facility] Stop: 05/01/18 09:16 Sodium Chloride (Ns Inj) 1,000 mls @ 0 mls/hr IV.SIG BOLUS STEFFANIE Magnesium Sulfate Inj 4 gm/ (Sodium Chloride) 100 mls @ 50 mls/hr IV.SIG UNSCH PRN PRN Reason: For Magnesium 0.9 - 1.1 mg/dL Magnesium Sulfate Inj 2 gm/ (Sodium Chloride) 100 mls @ 50 mls/hr IV.SIG UNSCH PRN PRN Reason: For Magnesium 1.2 - 1.6 mg/dL Sodium Chloride (Ns Inj) 1,000 mls @ 100 mls/hr IV.CONT .Q10H [facility] [place] Last Admin: 04/30/18 14:14 Dose: 100 mls/hr Potassium Chloride (Kcl 40 Meq Premix Inj) 40 meq in 100 mls @ 25 mls/hr IV.SIG Q2H PRN PRN Reason: For Potassium 2.8 - 3.2 mEq/L Potassium Chloride (Kcl 40 Meq Premix Inj) 40 meq in 100 mls @ 25 mls/hr IV.SIG UNSCH PRN PRN Reason: For Potassium 3.3 - 3.5 mEq/L Potassium Chloride (Kcl 20 Meq Premix Inj) 20 meq in 100 mls @ 50 mls/hr IV.SIG Q2H PRN PRN Reason: For Potassium 2.8 - 3.2 mEq/L Potassium Phosphate 30 mmol/ (Sodium Chloride) 260 mls @ 42 mls/hr IV.SIG UNSCH PRN PRN Reason: SEE LABEL COMMENTS Potassium Chloride (Kcl 20 Meq Premix Inj) 20 meq in 100 mls @ 50 mls/hr IV.SIG Q2H PRN PRN Reason: For Potassium 3.3 - 3.5 mEq/L Sodium Phosphate 30 mmol/ (Sodium Chloride) 260 mls @ 42 mls/hr IV.SIG UNSCH PRN PRN Reason: For Phosphorus < 2.5 mg/dL Vancomycin HCl 1,250 mg/ (Sodium Chloride) 262.5 mls @ 250 mls/hr IV.SIG Q12H STEFFANIE Last Infusion: 04/30/18 18:50 Dose: Infused Dexmedetomidine HCl 200 mcg/ (Sodium Chloride) 50 mls @ 4.53 mls/hr IV.CONT TITRATE PRN; Protocol PRN Reason: Per Protocol Last Admin: 04/30/18 20:08 Dose: 0.4 mcg/kg/hr, 9.07 mls/hr Sodium Chloride (Ns Inj) 1,000 mls @ 0 mls/hr IV.SIG BOLUS STEFFANIE Cefepime HCl 2,000 mg/ Sodium (Chloride) 100 mls @ 200 mls/hr IV.SIG Q8H STEFFANIE Last Infusion: 04/30/18 18:51 Dose: Infused Insulin Aspart (Novolog Insulin Correctional Sugar Inj) 0 unit SQ Q6HR STEFFANIE; Protocol Last Admin: 04/30/18 18:50 Dose: Not Given Lactulose (Lactulose Liq) 30 ml PO DAILY PRN PRN Reason: SEVERE CONSITIPATION Magnesium Oxide (Mag-Ox) 800 mg PO UNSCH PRN PRN Reason: For Magnesium 1.2 - 1.6 mg/dL Miscellaneous Information ([facility] Ordered Lab Info) 0 each OTHER ONCE ONE Stop: 05/01/18 22:46 Pharmacy Profile Note (Vancomycin Consult Pharmacy) 1 each OTHER UNSCH PRN PRN Reason: Pharmacy to dose Potassium Bicarb/Potassium Chloride (K-Lyte Cl Eff) 50 meq PO UNSCH PRN PRN Reason: For Potassium 3.3 - 3.5 mEq/L Potassium Phosphate (K-Phos Original) 2,000 mg PO Q4H PRN PRN Reason: Phosphorus Less Than 2.5 mg/dL Potassium Phosphate (K-Phos Original) 2,000 mg PO UNSCH PRN PRN Reason: SEE LABEL COMMENTS Senna/Docusate Sodium (Angle-Colace) 1 tab PO BID [facility] Last Admin: 04/30/18 21:49 Dose: Not Given Sennosides (Senokot) 17.2 mg PO Q12H PRN PRN Reason: Moderate Constipation Sodium Chloride (Ns Flush) 2 ml IV.FLUSH PRN PRN PRN Reason: FLUSH AFTER USING IV ACCESS Allergies Allergy/AdvReac Type Severity Reaction Status Date / Time No Known Allergies Allergy Unknown Uncoded 07/13/17 00:28 Exam Vital signs: Vital Signs 04/30/18 08:46 04/30/18 09:18 04/30/18 09:19 Temperature 98.8 F Pulse Rate 119 H Respiratory Rate 18 Blood Pressure 103/78 Pulse Oximetry 99 98 99 04/30/18 10:20 04/30/18 11:03 04/30/18 12:25 Temperature Pulse Rate 120 H 128 H 123 H Respiratory Rate 28 H 18 18 Blood Pressure 115/77 115/77 112/69 Pulse Oximetry 99 99 04/30/18 13:45 04/30/18 14:00 04/30/18 14:04 Temperature 99.8 F H 99.8 F H Pulse Rate 127 H 125 H Respiratory Rate 35 H 27 H 28 H Blood Pressure 111/71 111/71 Pulse Oximetry 96 04/30/18 15:00 04/30/18 16:00 04/30/18 20:05 Temperature 99.8 F H 99.7 F H Pulse Rate 126 H 134 H Respiratory Rate 24 24 Blood Pressure 127/77 128/90 Pulse Oximetry 99 99 98 Intake & Output 04/30/18 04/30/18 05/01/18 06:59 18:59 06:59 Intake Total 512.5 / 512.5 50 / 50 Output Total 625 / 625 Balance -112.5 / -112.5 50 / 50 Weight 80.5 kg Intake: IV 512.5 / 512.5 50 / 50 Precedex Inj 200 MCG In NS Inj 50 / 50 48 ML @ 0.2 MCG/KG/HR 4.53 mls/ hr IV.CONT TITRATE PRN Rx#: [id number] Maxipime Inj 2,000 MG In NS Inj 100 / 100 100 ML @ 200 mls/hr IV.SIG Q8H STEFFANIE Rx#:[id number] Zosyn 3.375 GM Premix 50 ML @ 50 / 50 100 mls/hr IV.SIG ONCE ONE Rx#: [id number] KCl 20 mEq Premix Inj 20 meq In 100 / 100 100 ml @ 50 mls/hr IV.SIG ONCE ONE Rx#:[id number] Vancomycin Inj 1,250 MG In NS 262.5 / 262.5 Inj 250 ML @ 250 mls/hr IV.SIG Q12H STEFFANIE Rx#:[id number] Oral 0 / 0 Output: Urine Amount (Catheter) 625 / 625 Condom 625 / 625 Other: Date of Last Bowel Movement 04/30/18 # Bowel Movements 1 # Incontinent Bowel Movements 1 Weight On Admission 80.5 kg - Constitutional mild distress - Routine HEENT Exam Head: Present: normocephalic Eye: Present: scleral injection (conjunctival petichiae) ENT: Absent: dentition normal - Routine Neck Exam Present: supple - Routine Chest/Breast/Axilla Exam Chest wall: Absent: tenderness - Routine Respiratory Exam Present: CTA bilaterally - Routine Cardiovascular Exam Present: S1, S2, murmur (soft murmur over amrimar RUSB), tachycardia - Routine Abdominal Exam Present: soft, normoactive bowel sounds. Absent: tenderness - Routine Extremities Exam Absent: edema - Routine Skin Exam Present: petechiae (multiple janeway lesions) - Routine Neurological Exam Present: altered mental status Results 04/30/18 09:08 04/30/18 17:21 Cardiac Enzymes 04/30/18 04/30/18 04/30/18 Range/Units 09:08 12:31 12:31 AST 69 H 64 H (15-37) U/L CK-MB (CK-2) 7.9 H 7.1 H (0.5-3.6) ng/mL Troponin I 3.34 H* 3.76 H* Cancelled (0.02-0.05) ng/mL 04/30/18 Range/Units 15:25 AST (15-37) U/L CK-MB (CK-2) (0.5-3.6) ng/mL Troponin I 4.43 H* (0.02-0.05) ng/mL CBC 04/30/18 Range/Units 09:08 WBC 16.1 H (4.0-11.0) th/mm3 RBC 5.11 (4.50-5.90) mil/mm3 Hgb 14.8 (13.0-17.0) gm/dL Hct 43.2 (39.0-51.0) % Plt Count 133 L (150-450) th/mm3 Neut # (Auto) 14.5 H (1.8-7.7) th/mm3 Lymph # (Auto) 0.2 L (1.0-4.8) th/mm3 [place] # (Auto) 1.4 H (0.0-0.9) th/mm3 Eos # (Auto) 0.0 (0.0-0.4) th/mm3 Baso # (Auto) 0.1 (0.0-0.2) th/mm3 Comprehensive Metabolic Panel 04/30/18 04/30/18 04/30/18 Range/Units 09:08 12:31 17:21 Sodium 134 L 140 142 (136-145) meq/L Potassium 3.1 L 3.1 L 3.3 L (3.5-5.1) meq/L Chloride 98 103 108 H (98-107) meq/L Carbon Dioxide 25.2 23.4 23.9 (21.0-32.0) meq/L BUN 22 H 20 H 22 H (7-18) mg/dL Creatinine 1.04 1.16 0.96 (0.60-1.30) mg/dL Calcium 8.5 7.8 L 7.3 L* (8.5-10.1) mg/dL AST 69 H 64 H (15-37) U/L ALT 62 49 (12-78) U/L Alkaline Phosphatase 59 48 (45-117) U/L Total Protein 7.4 6.4 D 6.0 L (6.4-8.2) g/dL Albumin 2.9 L 2.5 L (3.4-5.0) g/dL Intake and Output 04/30/18 04/30/18 04/30/18 06:59 14:59 22:59 Intake Total 0 / 0 562.5 / 562.5 Output Total 275 / 275 350 / 350 Balance -275 / -275 212.5 / 212.5 Intake: IV 562.5 / 562.5 Precedex Inj 200 MCG In NS Inj 50 / 50 48 ML @ 0.2 MCG/KG/HR 4.53 mls/ hr IV.CONT TITRATE PRN Rx#: [id number] Maxipime Inj 2,000 MG In NS Inj 100 / 100 100 ML @ 200 mls/hr IV.SIG Q8H STEFFANIE Rx#:[id number] Zosyn 3.375 GM Premix 50 ML @ 50 / 50 100 mls/hr IV.SIG ONCE ONE Rx#: [id number] KCl 20 mEq Premix Inj 20 meq In 100 / 100 100 ml @ 50 mls/hr IV.SIG ONCE ONE Rx#:[id number] Vancomycin Inj 1,250 MG In NS 262.5 / 262.5 Inj 250 ML @ 250 mls/hr IV.SIG Q12H STEFFANIE Rx#:[id number] Oral 0 / 0 Output: Urine Amount (Catheter) 275 / 275 350 / 350 Condom 275 / 275 350 / 350 Other: Date of Last Bowel Movement 04/30/18 04/30/18 # Bowel Movements 1 # Incontinent Bowel Movements 1 Weight 80.5 kg Weight On Admission 80.5 kg Patient Weight 05/01/18 06:59 Weight 80.5 kg EKG interpretations - Dysrhythmias Sinus rhythms and dysrhythmias: sinus tachycardia Assessment and Plan - Plan Altered Mental Status Elevated troponin secondary to septic process, likely endocarditis Plan: TTE, will likely need AURELIA as well ID and Critical Care following. Blood cultures pending. Has received IV Vanc and Zosyn. Further imaging to evaluate for septic emboli. IVF Will continue to follow on. Thank you for allowing me to participate.
[2018-05-01] MEDS: Insulin NovoLOG Aspart Correctional Sugar Inj SQ SCH ×4 (00:56→18:31)
[2018-05-01] MEDS: Sod Chloride 0.9% Inj 2,000 ML IV.SIG ONE ×2 (04:00→05:11)
[2018-05-01] MEDS ORDERED: Chlorhexidine Gluconate 2% 1 Pack (2 Cloths) TOPICAL PRN (04:00)
[2018-05-01] MEDS: Phenylephrine Inj 40 MG in Dextrose 5% in Water Inj 496 ML IV.CONT PRN ×4 (04:45→18:32)
[2018-05-01 05:01] LABS: Baso % (Auto) 0.1 % (0.0-2.0); Eos % (Auto) 0.1 % (0.0-4.0); Hematocrit 32.9 % (39.0-51.0); Hemoglobin 11.5 gm/dL (13.0-17.0); Lymph # (Auto) 0.3 th/mm3 (1.0-4.8); Lymph % (Auto) 2.7 % (9.0-44.0); Mean Corpuscular Hemoglobin 29.7 pg (27.0-34.0); Mean Corpuscular Volume 84.9 fL (80.0-100.0); Mean Platelet Volume 10.4 fL (7.0-11.0); Mono # (Auto) 1.3 th/mm3 (0.0-0.9); Mono % (Auto) 11.9 % (0.0-8.0); Neut # (Auto) 9.2 th/mm3 (1.8-7.7); Neut % (Auto) 85.2 % (16.0-70.0); Platelet Count 122 th/mm3 (150-450); Red Blood Count 3.87 mil/mm3 (4.50-5.90); White Blood Count 10.7 th/mm3 (4.0-11.0)
[2018-05-01] MEDS: Chlorhexidine Gluconate 2% 1 Pack (2 Cloths) TOPICAL SCH (05:11)
[2018-05-01 05:28] LABS: Albumin 1.8 g/dL (3.4-5.0); Carbon Dioxide 24.2 meq/L (21.0-32.0); Magnesium 1.8 mg/dL (1.5-2.5); Phosphorus 2.6 mg/dL (2.5-4.9); Total Protein 5.5 g/dL (6.4-8.2)
[2018-05-01 05:30] LABS: Potassium 4.2 meq/L (3.5-5.1)
[2018-05-01 05:33] LABS: Troponin I 3.01 ng/mL (0.02-0.05)
[2018-05-01] MEDS: Sod Chloride 0.9% Inj 1,000 ML IV.CONT SCH ×3 (05:40→18:31)
[2018-05-01 06:45] LABS: Monocytes 6 % (0-8)
[2018-05-01 06:46] LABS: Burr Cells 1+; Platelet Morphology Normal (Normal); Toxic Vacuolation Present
[2018-05-01] MEDS: Senna/Docusate Sodium 8.6/50 MG Tablet PO SCH ×2 (09:42→20:24)
[2018-05-01] MEDS: Famotidine PF Inj 20 MG/2 ML Vial IV.PUSH SCH ×2 (09:42→20:24)
[2018-05-01] MEDS: Vancomycin Inj 1,250 MG in Sodium Chlor 0.9% Inj 250 ML IV.SIG SCH (12:24)
[2018-05-01 12:26] LABS: Hematocrit 37.8 % (39.0-51.0); Hemoglobin 12.7 gm/dL (13.0-17.0); Mean Corpuscular HGB Conc 33.7 % (32.0-36.0); Mean Corpuscular Volume 85.9 fL (80.0-100.0); Mean Platelet Volume 10.9 fL (7.0-11.0); Platelet Count 96 th/mm3 (150-450); Red Cell Distribution Width 13.9 % (11.6-17.2); White Blood Count 20.4 th/mm3 (4.0-11.0)
--- NOTE | 2018-05-01 14:04 | P.PNCC ---
Objective Vital Signs / I&O: Vital Signs 04/30/18 15:00 04/30/18 16:00 04/30/18 20:05 Temperature 99.8 F H 99.7 F H Pulse Rate 126 H 134 H Respiratory Rate 24 24 Blood Pressure 127/77 128/90 Pulse Oximetry 99 99 98 04/30/18 21:00 05/01/18 00:00 05/01/18 00:58 Temperature 99.4 F 102.4 F H Pulse Rate 102 H 95 H Respiratory Rate 26 H 28 H 30 H Blood Pressure 97/62 L 85/53 L Pulse Oximetry 99 99 05/01/18 01:13 05/01/18 04:00 05/01/18 08:00 Temperature 98.6 F 97.7 F Pulse Rate 74 59 L Respiratory Rate 28 H 19 20 Blood Pressure 78/46 L 100/63 Pulse Oximetry 96 98 05/01/18 10:00 Temperature Pulse Rate 68 Respiratory Rate Blood Pressure Pulse Oximetry Intake & Output 04/30/18 05/01/18 05/01/18 18:59 06:59 18:59 Intake Total 512.5 / 512.5 1562.5 / 1562.5 2362.5 / 2362.5 Output Total 625 / 625 700 / 700 Balance -112.5 / -112.5 862.5 / 862.5 2362.5 / 2362.5 Weight 80.5 kg 82.8 kg Intake: IV 512.5 / 512.5 1562.5 / 1562.5 2362.5 / 2362.5 Precedex Inj 200 MCG In NS Inj 100 / 100 48 ML @ 0.2 MCG/KG/HR 4.53 mls/ hr IV.CONT TITRATE PRN Rx#: [id number] NS Inj 1,000 ML @ 100 mls/hr IV 1000 / 1000 .CONT .Q10H STEFFANIE Rx#:[id number] Ofirmev Inj 1,000 mg In 100 ml 100 / 100 @ 400 mls/hr IV.SIG Q6H PRN Rx# :[id number] Maxipime Inj 2,000 MG In NS Inj 100 / 100 100 / 100 100 / 100 100 ML @ 200 mls/hr IV.SIG Q8H STEFFANIE Rx#:[id number] Zosyn 3.375 GM Premix 50 ML @ 50 / 50 100 mls/hr IV.SIG ONCE ONE Rx#: [id number] KCl 20 mEq Premix Inj 20 meq In 100 / 100 100 ml @ 50 mls/hr IV.SIG ONCE ONE Rx#:[id number] NS Inj 2,000 ML @ As Directed 1999 IV.SIG NOW ONE Rx#:[id number] Vancomycin Inj 1,250 MG In NS 262.5 / 262.5 262.5 / 262.5 262.5 / 262.5 Inj 250 ML @ 250 mls/hr IV.SIG Q12H STEFFANIE Rx#:[id number] Oral 0 / 0 Output: Urine Amount (Catheter) 625 / 625 700 / 700 Condom 625 / 625 700 / 700 Other: Date of Last Bowel Movement 04/30/18 04/30/18 04/30/18 # Bowel Movements 1 # Incontinent Bowel Movements 1 Weight On Admission 80.5 kg Result Diagrams: 05/01/18 11:00 05/01/18 04:24 Assessment and Plan - Problem List (1) Severe sepsis Code(s): A41.9 - Sepsis, unspecified organism; R65.20 - Severe sepsis without septic shock Status: Acute (2) Acute metabolic encephalopathy Code(s): G93.41 - Metabolic encephalopathy Status: Acute (3) Delirium Code(s): R41.0 - Disorientation, unspecified Status: Acute (4) Drug withdrawal Code(s): F19.939 - Other psychoactive substance use, unspecified with withdrawal , unspecified Status: Acute (5) Lactic acidosis Code(s): E87.2 - Acidosis Status: Acute (6) Hypokalemia Code(s): E87.6 - Hypokalemia Status: Acute (7) Rhabdomyolysis Code(s): M62.82 - Rhabdomyolysis Status: Acute (8) Non-ST elevation [place] (NSTEMI) Code(s): I21.4 - Non-ST elevation (NSTEMI) myocardial infarction Status: Acute (9) Polysubstance abuse Code(s): F19.10 - Other psychoactive substance abuse, uncomplicated Status: Acute (10) Dehydration Code(s): E86.0 - Dehydration Status: Acute
--- NOTE | 2018-05-01 14:26 | MR ---
EXAM DATE: 05/01/2018 2:15 PM EDT AGE/SEX: 38 years / Male INDICATIONS: Altered mental status. CLINICAL DATA: This is the patient's initial encounter. Patient reports that signs and symptoms have been present for 2 days and indicates a pain score of 3/10. MEDICAL/SURGICAL HISTORY: Hepatitis C. Myocardial infarction. Endocarditis. Coronary artery s tent. COMPARISON: [facility], CT HEAD W CONTRAST, 04/30/2018. [facility], CT HEAD W/O CONTRAST, 04/29/2018. . TECHNIQUE: Multiplanar, multisequence examination of the brain was performed without and with 8 ml Ga davist (gadobutrol) contrast as a single exam dose. FINDINGS: Cerebrum: Scattered foci of bright T2 signal abnormalities are seen within the frontal, parietal, oc cipital lobes and both cerebellar hemispheres which also demonstrates restricted diffusion. The ventr icles are normal for age. No evidence of midline shift, mass lesion or hemorrhage. No extraaxial fl uid collections are seen. The pituitary gland and suprasellar cistern are normal in configuration. White Matter: No significant signal abnormalities are seen in the white matter. Posterior Fossa: The brainstem is intact. The 4th ventricle is midline. The cerebellopontine angle is unremarkable. The cerebellar tonsils are normal in position. Diffusion Imaging: Multiple scattered areas of restricted diffusion are seen. Consistent with acute infarction. Extracranial: The visualized portions of the orbits and paranasal sinuses are unremarkable. Post Contrast: No abnormal areas of parenchymal or dural enhancement. No evidence of blood-brain ba rrier breakdown. CONCLUSION: 1. Multifocal bilateral punctate infarcts, suspicious for embolic disease. 2. No midline shift or mass effect. Electronically signed by: Napoleon Alexander MD 05/01/2018 2:24 PM EDT
[2018-05-01] MEDS ORDERED: Gadobutrol PF 2 MMOL/2 ML Vial (for RAD) IV.SIG ONE (15:00)
--- NOTE | 2018-05-01 15:27 | P.PNCC ---
Subjective Subjective Remarks/Hospital Course: Patient is 30-year-old male with history of IV drug use, prev endocarditis, Hepatitis C, who presented to the emergency department via [facility] from [place] for acute psychosis and altered mental status. CT of the head done at [place] was negative for acute findings. Patient was very confused and delirious at [facility] ED. His last IV drug use of heroin was 5 days ago. Urine drug screen is pending at this time. ER workup showed multiple abnormalities, pertinent ones being a white count of 16.1 with left shift, troponin 3.24, lactic acid 3.1, CPK of 592, potassium of 3.1. Received 3 L of normal saline in the ED and was given Zosyn and vancomycin. I evaluated the patient in the emergency department. He is confused delirious oriented to person only. He is very tachycardic and dry. Patient appears very critical and septic. With IV drug use patient most likely has recurrence of infective endocarditis. Cardiology consult as well as ID consult had been requested. I will give additional 1 L fluid bolus and continue vancomycin and Zosyn. I will place on Precedex. 2D echo is pending at this time 05/01: Patient remains critically ill confused encephalopathy but slightly better speech. MRI of the brain is pending at this time. CT of the abdomen pelvis showed splenic infarct and probable inflammatory changes of the left perinephric space. CT chest shows bilateral infiltrates. WBC count is elevated 20.4 today. On broad-spectrum antibiotics per ID. Echo pending. MRI brain shows Multifocal bilateral punctate infarcts, suspicious for embolic disease. Blood cx positive 11/29 [facility] Objective Vital Signs / I&O: Vital Signs 04/30/18 16:00 04/30/18 20:05 04/30/18 21:00 Temperature 99.7 F H 99.4 F Pulse Rate 134 H 102 H Respiratory Rate 24 26 H Blood Pressure 128/90 97/62 L Pulse Oximetry 99 98 99 05/01/18 00:00 05/01/18 00:58 05/01/18 01:13 Temperature 102.4 F H Pulse Rate 95 H Respiratory Rate 28 H 30 H 28 H Blood Pressure 85/53 L Pulse Oximetry 99 05/01/18 04:00 05/01/18 08:00 05/01/18 10:00 Temperature 98.6 F 97.7 F Pulse Rate 74 59 L 68 Respiratory Rate 19 20 Blood Pressure 78/46 L 100/63 Pulse Oximetry 96 98 Intake & Output 04/30/18 05/01/18 05/01/18 18:59 06:59 18:59 Intake Total 512.5 / 512.5 1562.5 / 1562.5 2362.5 / 2362.5 Output Total 625 / 625 700 / 700 Balance -112.5 / -112.5 862.5 / 862.5 2362.5 / 2362.5 Weight 80.5 kg 82.8 kg Intake: IV 512.5 / 512.5 1562.5 / 1562.5 2362.5 / 2362.5 Precedex Inj 200 MCG In NS Inj 100 / 100 48 ML @ 0.2 MCG/KG/HR 4.53 mls/ hr IV.CONT TITRATE PRN Rx#: [id number] NS Inj 1,000 ML @ 100 mls/hr IV 1000 / 1000 .CONT .Q10H STEFFANIE Rx#:[id number] Ofirmev Inj 1,000 mg In 100 ml 100 / 100 @ 400 mls/hr IV.SIG Q6H PRN Rx# :[id number] Maxipime Inj 2,000 MG In NS Inj 100 / 100 100 / 100 100 / 100 100 ML @ 200 mls/hr IV.SIG Q8H STEFFANIE Rx#:[id number] Zosyn 3.375 GM Premix 50 ML @ 50 / 50 100 mls/hr IV.SIG ONCE ONE Rx#: [id number] KCl 20 mEq Premix Inj 20 meq In 100 / 100 100 ml @ 50 mls/hr IV.SIG ONCE ONE Rx#:[id number] NS Inj 2,000 ML @ As Directed 1999 / 1999 IV.SIG NOW ONE Rx#:[id number] Vancomycin Inj 1,250 MG In NS 262.5 / 262.5 262.5 / 262.5 262.5 / 262.5 Inj 250 ML @ 250 mls/hr IV.SIG Q12H STEFFANIE Rx#:[id number] Oral 0 / 0 Output: Urine Amount (Catheter) 625 / 625 700 / 700 Condom 625 / 625 700 / 700 Other: Date of Last Bowel Movement 04/30/18 04/30/18 04/30/18 # Bowel Movements 1 # Incontinent Bowel Movements 1 Weight On Admission 80.5 kg Result Diagrams: 05/01/18 11:00 05/01/18 04:24 Objective Remarks: GENERAL: 38-year-old male who is ill-appearing tachycardic, confused SKIN: Warm/dry. Multiple tattoos. Multiple skin petechia HEAD: Atraumatic. Normocephalic. EYES: Pupils equal and round. No scleral icterus. Conjunctival splinter hemorrhages present ENT: No nasal bleeding or discharge. Mucous membranes dry. NECK: Trachea midline. No JVD. CARDIOVASCULAR: Tachycardic rate and rhythm. No murmur appreciated. RESPIRATORY: No accessory muscle use. Clear to auscultation. Breath sounds equal bilaterally. GASTROINTESTINAL: Abdomen soft, tenderness in epigastric region, nondistended. Hepatic and splenic margins not palpable. MUSCULOSKELETAL: No obvious deformities. No clubbing. NEUROLOGICAL: Awake and able to state his name but otherwise very confused. Garbled speech, but improved. Moving all 4 extremities no focal deficits. Assessment and Plan - Problem List (1) Severe sepsis Code(s): A41.9 - Sepsis, unspecified organism; R65.20 - Severe sepsis without septic shock Status: Acute (2) Acute metabolic encephalopathy Code(s): G93.41 - Metabolic encephalopathy Status: Acute (3) Delirium Code(s): R41.0 - Disorientation, unspecified Status: Acute (4) Drug withdrawal Code(s): F19.939 - Other psychoactive substance use, unspecified with withdrawal , unspecified Status: Acute (5) Lactic acidosis Code(s): E87.2 - Acidosis Status: Acute (6) Hypokalemia Code(s): E87.6 - Hypokalemia Status: Acute (7) Rhabdomyolysis Code(s): M62.82 - Rhabdomyolysis Status: Acute (8) Non-ST elevation [place] (NSTEMI) Code(s): I21.4 - Non-ST elevation (NSTEMI) myocardial infarction Status: Acute (9) Polysubstance abuse Code(s): F19.10 - Other psychoactive substance abuse, uncomplicated Status: Acute (10) Dehydration Code(s): E86.0 - Dehydration Status: Acute - Assessment and Plan Plan: NEURO: Acute metabolic encephalopathy/Delirium Multifocal bilateral punctate infarcts, probable septic emboli Polysubstance abuse with withdrawal -Precedex for sedation and vent synchrony, wean gradually -MRI brain shows Multifocal bilateral punctate infarcts, suspicious for embolic disease. -Neurology consult for embolic bilateral infarcts -Watch closely for drug withdrawal -Supplement multivitamin thiamine -Watch closely for signs of meningitis/brain abscess from septic emboli -PT RESP: Respiratory insufficiency Pneumonia/septic emboli -DuoNeb every 6 hours as needed -Sputum culture if available -CT chest shows bilateral infiltrates CV: Lactic acidosis NSTEMI Infective endocarditis -s/p Normal saline IV fluids 4L bolus and continue NS 125 ml per hour -2d echo pending, cardiology consult Dr. Martines, serial troponin, serial lactic acid -Continue aspirin carvedilol. Avoid statins at this time due to hep C -Elevated troponin may be secondary to coronary artery septic emboli GI: Hepatitis C -N.p.o., IV famotidine -Speech pathology consulted for speech evaluation and swallow evaluation : Renal insufficiency -Monitor renal function closely. [place] catheter. Fluid resuscitation as above ID: Severe sepsis Probable infective endocarditis -Antibiotics with vancomycin and Cefepime, ID Dr. Lucio -Blood urine and sputum cultures -Blood culture with GPC 4 HEME: -Monitor CBC, coags ENDO: -Electrolyte replacement per protocol -Sliding scale insulin if needed PROPH: -Bilateral lower extremity SCDs. famotidine. Avoid chemical DVT prophylaxis due to risk of hemorrhagic transformation LINES: -Utilize peripheral IVs, central line if needed CC time 32 min
--- NOTE | 2018-05-01 19:18 | MB ---
cc: Brenda Mike MD DATE: 01/29/2018 REASON FOR CONSULTATION: Stroke. HISTORY OF PRESENT ILLNESS: This is a 30-year-old male with a history of IV drug use, previous endocarditis, and hepatitis C, who came into the ER from [facility] for acute change in mental status. CT done showed nothing acute of the brain, was sent from [facility] to [facility] ED. His urine drug screen apparently was normal. His last IV drug use of heroin was 5 days prior to admission per chart. It showed that he had a leukocytosis of 16.1, white count with left shift, elevated troponin 3.24. lactic acid 3.1, CPK of 592. Did receive some saline, Zosyn, and vancomycin in the ED, was seen by the associate professor of biblical studies. Subsequently MRI of the brain was performed and it showed multifocal bilateral punctate infarcts suspicious for embolic phenomenon, but no shift or mass effect. The patient is still confused, but speech is better. CT of abdomen and pelvis showed splenic infarct and inflammatory changes in the left perinephric space. CT chest showed bilateral infiltrates. White count today is 20.4. He is on broad-spectrum antibiotics. His echo is pending. His blood culture showed 4/4 gram-positive cocci. PHYSICAL EXAMINATION: VITAL SIGNS: Temperature is 98 currently, pulse 76, respiratory rate 20, blood pressure 94/63. GENERAL: He is awake and alert and hypophonic, but he does not sound significantly dysarthric. HEENT: His pupils are reactive. His face is symmetrical. EXTREMITIES: He seems to move everything. He is in restraints in his upper extremities, but he squeezes symmetrically. He does wiggle his toes, cannot lift antigravity at this time. DTRs are trace to 1+. Toes he withdraws. CENTRAL NERVOUS SYSTEM: Cannot do cerebellar testing in restraints. LABORATORY DATA: Reviewed. His white count is 20.4, hemoglobin 12.7, his platelets are 96,000. Chemistries: BUN 33, GFR 68, calcium is 7 - corrected 7.8. Troponin 3.01. His albumin is 1.8. Urine culture is pending, 30 protein, large occult blood, 31 white cells, MRSA nasal screen negative. Toxicology was negative. Microbiology Staphylococcus aureus gram-positive cocci. DIAGNOSTIC DATA: Head MRI shows multifocal bilateral punctate infarcts suspicious for embolic disease and depression. PLAN: A 38-year-old man with bilateral infarcts, likely septic emboli. History of IVDA. Recommend getting echo and a transesophageal echo. Continue him on aspirin therapy. I will have PT, OT, and speech therapy assess them. Continue antibiotics per infectious disease. Further recommendations to be made accordingly. MD MAT Juarez/sri , 05:18 PM , 05:28 PM
--- NOTE | 2018-05-01 19:24 | P.PNID ---
Subjective Remarks: no more fevers WBC up to 20 K MRI with embolic strokes MSSA in 4/4 bottles Antibiotics: cefepime vanco Past Medical History: IVDU Allergies/Adverse Reactions: Allergies No Known Allergies Allergy (Unknown, Uncoded 07/13/17 00:28) Objective Vital Signs 04/30/18 20:05 04/30/18 21:00 05/01/18 00:00 Temperature 99.4 F 102.4 F H Pulse Rate 102 H 95 H Respiratory Rate 26 H 28 H Blood Pressure 97/62 L 85/53 L Pulse Oximetry 98 99 99 05/01/18 00:58 05/01/18 01:13 05/01/18 04:00 Temperature 98.6 F Pulse Rate 74 Respiratory Rate 30 H 28 H 19 Blood Pressure 78/46 L Pulse Oximetry 96 05/01/18 08:00 05/01/18 10:00 05/01/18 12:00 Temperature 97.7 F 98 F Pulse Rate 59 L 68 69 Respiratory Rate 20 20 Blood Pressure 100/63 94/63 L Pulse Oximetry 98 96 05/01/18 14:45 05/01/18 16:00 05/01/18 18:00 Temperature 97.7 F Pulse Rate 76 79 86 Respiratory Rate 20 Blood Pressure 112/74 Pulse Oximetry 100 Intake & Output 05/01/18 05/01/18 05/02/18 06:59 18:59 06:59 Intake Total 1562.5 / 1562.5 4102.5 / 4102.5 100 / 100 Output Total 700 / 700 750 / 750 Balance 862.5 / 862.5 3352.5 / 3352.5 100 / 100 Weight 82.8 kg Intake: IV 1562.5 / 1562.5 3862.5 / 3862.5 100 / 100 Precedex Inj 200 MCG In NS Inj 100 / 100 48 ML @ 0.2 MCG/KG/HR 4.53 mls/ hr IV.CONT TITRATE PRN Rx#: [id number] Neosynephrine Inj 40 MG In D5W 500 / 500 Inj 496 ML @ 40 MCG/MIN 30 mls/ hr IV.CONT TITRATE PRN Rx#: [id number] NS Inj 1,000 ML @ 100 mls/hr IV 1000 / 1000 1000 / 1000 .CONT .Q10H STEFFANIE Rx#:[id number] Ofirmev Inj 1,000 mg In 100 ml 100 / 100 @ 400 mls/hr IV.SIG Q6H PRN Rx# :[id number] Maxipime Inj 2,000 MG In NS Inj 100 / 100 100 / 100 100 ML @ 200 mls/hr IV.SIG Q8H STEFFANIE Rx#:[id number] Prostaphlin Inj 2 GM In NS Inj 100 / 100 100 ML @ 200 mls/hr IV.SIG Q4H STEFFANIE Rx#:[id number] NS Inj 2,000 ML @ As Directed 1999 IV.SIG NOW ONE Rx#:[id number] Vancomycin Inj 1,250 MG In NS 262.5 / 262.5 262.5 / 262.5 Inj 250 ML @ 250 mls/hr IV.SIG Q12H STEFFANIE Rx#:[id number] Oral 240 / 240 Output: Urine 200 / 200 Urine Amount (Catheter) 700 / 700 550 / 550 Condom 700 / 700 550 / 550 Other: # Incontinent Voids 1 Date of Last Bowel Movement 04/30/18 04/30/18 04/30/18 15:10 Clean Catch Urine Urine Culture - Preliminary No growth. 04/30/18 09:08 Blood - Peripheral Aerobic Blood Culture - Preliminary Staphylococcus aureus 04/30/18 09:08 Blood - Peripheral Anaerobic Blood Culture - Preliminary gram positive cocci 04/30/18 09:00 Blood - Peripheral Aerobic Blood Culture - Preliminary gram positive cocci 04/30/18 09:00 Blood - Peripheral Anaerobic Blood Culture - Preliminary gram positive cocci Lab - Hematology Results 04/30/18 05/01/18 05/01/18 09:08 04:24 11:00 WBC 16.1 H 10.7 20.4 H D RBC 5.11 3.87 L 4.40 L Hgb 14.8 11.5 L D 12.7 L Hct 43.2 32.9 L 37.8 L MCV 84.6 84.9 85.9 MCH 29.0 29.7 29.0 MCHC 34.2 35.0 33.7 RDW 13.8 14.0 13.9 Plt Count 133 L 122 L 96 L MPV 10.0 10.4 10.9 Prelim Diff (Auto) Slide review pending Slide review pending Neut % (Auto) 90.1 H 85.2 H Lymph % (Auto) 1.0 L 2.7 L [place] % (Auto) 8.4 H 11.9 H Eos % (Auto) 0.1 0.1 Baso % (Auto) 0.4 0.1 Neut # (Auto) 14.5 H 9.2 H Lymph # (Auto) 0.2 L 0.3 L [place] # (Auto) 1.4 H 1.3 H Eos # (Auto) 0.0 0.0 Baso # (Auto) 0.1 0.0 WBC Differential Manual diff final Manual diff final Seg Neuts % (Manual) 74 H 74 H Band Neuts % (Manual) 19 H 20 H Monocytes % (Manual) 6 6 Metamyelocytes % (Man) 1 Abs Neuts (Manual) 15.1 H 10.1 H Differential Comment . . Toxic Vacuolation Present H Present H Platelet Estimate Low L Low L Platelet Morphology Normal Normal RBC Morphology Normal [place] Cells 1+ H Lab - Chemistry Results 04/30/18 04/30/18 04/30/18 09:08 09:08 09:08 Sodium 134 L Potassium 3.1 L Chloride 98 Carbon Dioxide 25.2 Anion Gap 11 BUN 22 H Creatinine 1.04 Estimated GFR 80 L POC Glucose Random Glucose 127 H Lactic Acid 3.1 H Calcium 8.5 Prot Corrected Calcium Phosphorus Magnesium Total Bilirubin 1.5 H AST 69 H ALT 62 Alkaline Phosphatase 59 Ammonia Less than 10 L Total Creatine Kinase 592 H CK-MB (CK-2) 7.9 H CK-MB (CK-2) % 1.3 Troponin I 3.34 H* Total Protein 7.4 Albumin 2.9 L 04/30/18 04/30/18 04/30/18 12:31 12:31 15:25 Sodium 140 Potassium 3.1 L Chloride 103 Carbon Dioxide 23.4 Anion Gap 14 BUN 20 H Creatinine 1.16 Estimated GFR 70 L POC Glucose Random Glucose 98 Lactic Acid Calcium 7.8 L Prot Corrected Calcium Phosphorus Magnesium 1.6 Total Bilirubin 1.3 H AST 64 H ALT 49 Alkaline Phosphatase 48 Ammonia Total Creatine Kinase 748 H CK-MB (CK-2) 7.1 H CK-MB (CK-2) % 0.9 Troponin I 3.76 H* Cancelled 4.43 H* Total Protein 6.4 D Albumin 2.5 L 04/30/18 04/30/18 04/30/18 17:21 17:21 18:45 Sodium 142 Potassium 3.3 L Chloride 108 H Carbon Dioxide 23.9 Anion Gap 10 BUN 22 H Creatinine 0.96 Estimated GFR 88 L POC Glucose 83 Random Glucose 89 Lactic Acid 2.3 H Calcium 7.3 L* Prot Corrected Calcium 7.9 L Phosphorus Magnesium Total Bilirubin AST ALT Alkaline Phosphatase Ammonia Total Creatine Kinase CK-MB (CK-2) CK-MB (CK-2) % Troponin I Total Protein 6.0 L Albumin 05/01/18 05/01/18 00:38 04:24 Sodium 142 Potassium 4.2 D Chloride 111 H Carbon Dioxide 24.2 Anion Gap 7 BUN 33 H Creatinine 1.19 Estimated GFR 68 L POC Glucose 88 Random Glucose 80 Lactic Acid Calcium 7.0 L* Prot Corrected Calcium 7.8 L Phosphorus 2.6 Magnesium 1.8 Total Bilirubin 1.2 H AST 111 H ALT 43 Alkaline Phosphatase 38 L Ammonia Total Creatine Kinase CK-MB (CK-2) CK-MB (CK-2) % Troponin I 3.01 H* Total Protein 5.5 L Albumin 1.8 L D Imaging: ITS Impressions Chest CT 04/30/18 00:00 CONCLUSION: 1. Parenchymal process bilaterally most likely inflammatory and pneumonia. Abdomen/Pelvis CT 04/30/18 08:48 CONCLUSION: 1. 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 2. Haziness in the anterior margins of the perinephric space at the junction of the spleen possibly inflammatory process of uncertain etiology. Chest X-Ray 04/30/18 08:48 CONCLUSION: Negative examination. Head CT 04/30/18 16:58 CONCLUSION: Chronic sinusitis and possible nasal polyposis and otherwise brain CT is otherwise unremarkable. Head MRI 05/01/18 00:00 CONCLUSION: 1. Multifocal bilateral punctate infarcts, suspicious for embolic disease. 2. No midline shift or mass effect. Physical Exam: GENERAL: NAD SKIN: Warm and dry. Petechial and [place] lesions HEAD: Atraumatic. Normocephalic. EYES: Pupils equal and round. No scleral icterus. No injection or drainage. numerous conjubnctival hmrgs ENT: No nasal bleeding or discharge. Mucous membranes pink and moist. NECK: Trachea midline. No JVD. CARDIOVASCULAR: Regular rate and rhythm. RESPIRATORY: No accessory muscle use. Clear to auscultation. Breath sounds equal bilaterally. GASTROINTESTINAL: Abdomen soft, non-tender, nondistended. Hepatic and splenic margins not palpable. MUSCULOSKELETAL: Extremities without clubbing, cyanosis, or edema. No obvious deformities. NEUROLOGICAL: Lethargic, arousable follows all 4 Garbled speech, but seems more clear today PSYCHIATRIC: intermittently cooperats calm Assessment and Plan - Plan Probable L sided (mitral and/or aortic) valve endocariditis Elevated troponin brain septic emboli Pt has difficulty speaking which appear new (per 06/2017 record he had clear speech) and per RN got worse thru the shift CT head w/o c negative @ 2300 Critically ill, stable BRENDA, mild - change vanco and cefepime to oxacilin - 2 D echo -TTE and possibly AURELIA dw RN hesham Arellano
[2018-05-01] MEDS: Dexmedetomidine Inj 200 MCG in Sodium Chlor 0.9% Inj 48 ML IV.CONT PRN (21:59)
[2018-05-01] MEDS ORDERED: Pharmacy Ordered Lab Info OTHER SCH (22:45)
[2018-05-01] MEDS ORDERED: Pharmacy Ordered Lab Info OTHER ONE (22:45)
[2018-05-02] MEDS: Insulin NovoLOG Aspart Correctional Sugar Inj SQ SCH ×5 (01:03→23:55)
[2018-05-02] MEDS: Dexmedetomidine Inj 200 MCG in Sodium Chlor 0.9% Inj 48 ML IV.CONT PRN (03:15)
[2018-05-02] MEDS: Chlorhexidine Gluconate 2% 1 Pack (2 Cloths) TOPICAL SCH (04:43)
[2018-05-02] MEDS: Sod Chloride 0.9% Inj 1,000 ML IV.CONT SCH ×3 (06:31→17:32)
[2018-05-02] MEDS: Phenylephrine Inj 40 MG in Dextrose 5% in Water Inj 496 ML IV.CONT PRN ×2 (09:56)
[2018-05-02] MEDS: Famotidine PF Inj 20 MG/2 ML Vial IV.PUSH SCH ×2 (10:09→20:08)
[2018-05-02] MEDS: Senna/Docusate Sodium 8.6/50 MG Tablet PO SCH ×2 (10:34→20:08)
--- NOTE | 2018-05-02 10:58 | P.PNCC ---
Subjective Subjective Remarks/Hospital Course: Patient is 30-year-old male with history of IV drug use, prev endocarditis, Hepatitis C, who presented to the emergency department via [facility] from [facility] for acute psychosis and altered mental status. CT of the head done at [facility] was negative for acute findings. Patient was very confused and delirious at [facility] ED. His last IV drug use of heroin was 5 days ago. Urine drug screen is pending at this time. ER workup showed multiple abnormalities, pertinent ones being a white count of 16.1 with left shift, troponin 3.24, lactic acid 3.1, CPK of 592, potassium of 3.1. Received 3 L of normal saline in the ED and was given Zosyn and vancomycin. I evaluated the patient in the emergency department. He is confused delirious oriented to person only. He is very tachycardic and dry. Patient appears very critical and septic. With IV drug use patient most likely has recurrence of infective endocarditis. Cardiology consult as well as ID consult had been requested. I will give additional 1 L fluid bolus and continue vancomycin and Zosyn. I will place on Precedex. 2D echo is pending at this time 05/01: Patient remains critically ill confused encephalopathy but slightly better speech. MRI of the brain is pending at this time. CT of the abdomen pelvis showed splenic infarct and probable inflammatory changes of the left perinephric space. CT chest shows bilateral infiltrates. WBC count is elevated 20.4 today. On broad-spectrum antibiotics per ID. Echo pending. MRI brain shows Multifocal bilateral punctate infarcts, suspicious for embolic disease. Blood cx positive 11/29 GPC 05/02: Patient intermittently agitated overnight, Precedex closely started. Currently, speech is improved. Echo official report pending but preliminary no vegetation seen. Will schedule AURELIA. Blood cultures growing staph aureus. Antibiotics narrowed to oxacillin by ID Objective Vital Signs / I&O: Vital Signs 05/01/18 12:00 05/01/18 14:45 05/01/18 16:00 Temperature 98 F 97.7 F Pulse Rate 69 76 79 Respiratory Rate 20 20 Blood Pressure 94/63 L 112/74 Pulse Oximetry 96 100 05/01/18 18:00 05/01/18 20:00 05/01/18 20:38 Temperature 100.0 F H Pulse Rate 86 84 Respiratory Rate 22 25 H Blood Pressure 104/79 Pulse Oximetry 96 09/04/18 22:00 05/02/18 00:00 05/02/18 04:00 Temperature 99.6 F 98.0 F Pulse Rate 89 73 69 Respiratory Rate 25 H 27 H Blood Pressure 101/63 114/63 Pulse Oximetry 05/02/18 06:00 Temperature Pulse Rate 69 Respiratory Rate Blood Pressure Pulse Oximetry Intake & Output 05/01/18 05/02/18 05/02/18 18:59 06:59 18:59 Intake Total 4102.5 / 4102.5 1800 / 1800 600 / 600 Output Total 750 / 750 1150 / 1150 Balance 3352.5 / 3352.5 650 / 650 600 / 600 Weight 85.1 kg Intake: IV 3862.5 / 3862.5 1560 / 1560 600 / 600 Precedex Inj 200 MCG In NS Inj 60 / 60 48 ML @ 0.2 MCG/KG/HR 4.53 mls/ hr IV.CONT TITRATE PRN Rx#: [id number] Neosynephrine Inj 40 MG In D5W 500 / 500 500 / 500 Inj 496 ML @ 40 MCG/MIN 30 mls/ hr IV.CONT TITRATE PRN Rx#: [id number] NS Inj 1,000 ML @ 100 mls/hr IV 1000 / 1000 1000 / 1000 .CONT .Q10H STEFFANIE Rx#:[id number] Ofirmev Inj 1,000 mg In 100 ml 100 / 100 @ 400 mls/hr IV.SIG Q6H PRN Rx# :[id number] Maxipime Inj 2,000 MG In NS Inj 100 / 100 100 ML @ 200 mls/hr IV.SIG Q8H STEFFANIE Rx#:[id number] Prostaphlin Inj 2 GM In NS Inj 400 / 400 100 / 100 100 ML @ 200 mls/hr IV.SIG Q4H STEFFANIE Rx#:[id number] NS Inj 2,000 ML @ As Directed 1999 / 1999 IV.SIG NOW ONE Rx#:[id number] Vancomycin Inj 1,250 MG In NS 262.5 / 262.5 Inj 250 ML @ 250 mls/hr IV.SIG Q12H STEFFANIE Rx#:[id number] Oral 240 / 240 240 / 240 Output: Urine 200 / 200 Urine Amount (Catheter) 550 / 550 1150 / 1150 Condom 550 / 550 1150 / 1150 Other: # Incontinent Voids 1 Date of Last Bowel Movement 04/30/18 04/30/18 Result Diagrams: 05/01/18 11:00 05/01/18 04:24 Objective Remarks: GENERAL: 38-year-old male who is ill-appearing tachycardic SKIN: Warm/dry. Multiple tattoos. Multiple skin petechia HEAD: Atraumatic. Normocephalic. EYES: Pupils equal and round. No scleral icterus. Conjunctival splinter hemorrhages present ENT: No nasal bleeding or discharge. Mucous membranes dry. NECK: Trachea midline. No JVD. CARDIOVASCULAR: Tachycardic rate and rhythm. No murmur appreciated. RESPIRATORY: No accessory muscle use. Clear to auscultation. Breath sounds equal bilaterally. GASTROINTESTINAL: Abdomen soft, tenderness in epigastric region, nondistended. Hepatic and splenic margins not palpable. MUSCULOSKELETAL: No obvious deformities. No clubbing. NEUROLOGICAL: Awake and able to state his name, knows that he is in a hospital but did not know the name of the place. Speech improved. Moving all 4 extremities no focal deficits. Assessment and Plan - Problem List (1) Severe sepsis Code(s): A41.9 - Sepsis, unspecified organism; R65.20 - Severe sepsis without septic shock Status: Acute (2) Acute metabolic encephalopathy Code(s): G93.41 - Metabolic encephalopathy Status: Acute (3) Delirium Code(s): R41.0 - Disorientation, unspecified Status: Acute (4) Drug withdrawal Code(s): F19.939 - Other psychoactive substance use, unspecified with withdrawal , unspecified Status: Acute (5) Lactic acidosis Code(s): E87.2 - Acidosis Status: Acute (6) Hypokalemia Code(s): E87.6 - Hypokalemia Status: Acute (7) Rhabdomyolysis Code(s): M62.82 - Rhabdomyolysis Status: Acute (8) Non-ST elevation AL (NSTEMI) Code(s): I21.4 - Non-ST elevation (NSTEMI) myocardial infarction Status: Acute (9) Polysubstance abuse Code(s): F19.10 - Other psychoactive substance abuse, uncomplicated Status: Acute (10) Dehydration Code(s): E86.0 - Dehydration Status: Acute - Assessment and Plan Plan: NEURO: Acute metabolic encephalopathy Multifocal bilateral punctate infarcts, probable septic emboli Polysubstance abuse with withdrawal -Precedex for sedation and vent synchrony, wean gradually. Use as needed Ativan -MRI brain shows Multifocal bilateral punctate infarcts, suspicious for embolic disease. -Neurology consult for embolic bilateral infarcts. Dr. Arzate. Continue aspirin -Watch closely for drug withdrawal -Supplement multivitamin thiamine -Watch closely for signs of meningitis/brain abscess from septic emboli -PT OOB RESP: Respiratory insufficiency Pneumonia/septic emboli -DuoNeb every 6 hours as needed -Sputum culture if available -CT chest shows bilateral infiltrates CV: Lactic acidosis NSTEMI Infective endocarditis -s/p Normal saline IV fluids 4L bolus and continue NS 125 ml per hour -2d echo report pending prelim negative, cardiology consult Dr. Martines, serial troponin, serial lactic acid -AURELIA ordered -Continue aspirin carvedilol. Avoid statins at this time due to hep C -Elevated troponin may be secondary to coronary artery septic emboli GI: Hepatitis C -N.p.o., IV famotidine. Start regular diet -Speech pathology consulted for speech evaluation and swallow evaluation : Renal insufficiency -Monitor renal function closely. [place] catheter. Fluid resuscitation as above ID: Severe sepsis Probable infective endocarditis -Antibiotics with vancomycin and Cefepime, ID Dr. Lucio-changed to Oxacillin 05/01/18 -Blood urine and sputum cultures -Blood culture with GPC 4 staph aureus HEME: -Monitor CBC, coags ENDO: -Electrolyte replacement per protocol -Sliding scale insulin if needed PROPH: -Bilateral lower extremity SCDs. famotidine. Start Lovenox 40 mg sq daily LINES: -Utilize peripheral IVs, central line if needed Level 3 Code Status: Full
[2018-05-02 11:32] LABS: Baso # (Auto) 0.1 th/mm3 (0.0-0.2); Baso % (Auto) 0.4 % (0.0-2.0); Eos # (Auto) 0.1 th/mm3 (0.0-0.4); Eos % (Auto) 0.3 % (0.0-4.0); Hematocrit 37.1 % (39.0-51.0); Hemoglobin 12.5 gm/dL (13.0-17.0); Lymph # (Auto) 0.8 th/mm3 (1.0-4.8); Lymph % (Auto) 4.3 % (9.0-44.0); Mean Corpuscular HGB Conc 33.7 % (32.0-36.0); Mean Corpuscular Hemoglobin 28.6 pg (27.0-34.0); Mean Platelet Volume 10.1 fL (7.0-11.0); Mono # (Auto) 2.3 th/mm3 (0.0-0.9); Mono % (Auto) 12.7 % (0.0-8.0); Neut # (Auto) 14.8 th/mm3 (1.8-7.7); Neut % (Auto) 82.3 % (16.0-70.0); Platelet Count 99 th/mm3 (150-450); Red Blood Count 4.36 mil/mm3 (4.50-5.90); Red Cell Distribution Width 14.5 % (11.6-17.2)
[2018-05-02 12:13] LABS: Eosinophils 1 % (0-4); Lymphocytes 4 % (9-44); Monocytes 9 % (0-8); Platelet Morphology Normal (Normal)
[2018-05-02 12:14] LABS: Toxic Vacuolation Present
[2018-05-02 12:15] LABS: Acanthocytes Occ; Burr Cells 1+
--- NOTE | 2018-05-02 13:22 | P.PNCA ---
Subjective Interval history: Improved speech today. Physical Exam Vital signs: Vital Signs 05/01/18 14:45 05/01/18 16:00 05/01/18 18:00 Temperature 97.7 F Pulse Rate 76 79 86 Respiratory Rate 20 Blood Pressure 112/74 Pulse Oximetry 100 05/01/18 20:00 05/01/18 20:38 05/01/18 22:00 Temperature 100.0 F H Pulse Rate 84 89 Respiratory Rate 22 25 H Blood Pressure 104/79 Pulse Oximetry 96 05/02/18 00:00 05/02/18 04:00 05/02/18 06:00 Temperature 99.6 F 98.0 F Pulse Rate 73 69 69 Respiratory Rate 25 H 27 H Blood Pressure 101/63 114/63 Pulse Oximetry 05/02/18 08:00 05/02/18 10:00 Temperature 98.5 F Pulse Rate 76 68 Respiratory Rate 26 H Blood Pressure 115/81 Pulse Oximetry 100 Intake & Output 05/01/18 05/02/18 05/02/18 18:59 06:59 18:59 Intake Total 4102.5 / 4102.5 1800 / 1800 650 / 650 Output Total 750 / 750 1150 / 1150 Balance 3352.5 / 3352.5 650 / 650 650 / 650 Weight 85.1 kg Intake: IV 3862.5 / 3862.5 1560 / 1560 650 / 650 Precedex Inj 200 MCG In NS Inj 60 / 60 50 / 50 48 ML @ 0.2 MCG/KG/HR 4.53 mls/ hr IV.CONT TITRATE PRN Rx#: [id number] Neosynephrine Inj 40 MG In D5W 500 / 500 500 / 500 Inj 496 ML @ 40 MCG/MIN 30 mls/ hr IV.CONT TITRATE PRN Rx#: [id number] NS Inj 1,000 ML @ 100 mls/hr IV 1000 / 1000 1000 / 1000 .CONT .Q10H STEFFANIE Rx#:[id number] Ofirmev Inj 1,000 mg In 100 ml 100 / 100 @ 400 mls/hr IV.SIG Q6H PRN Rx# :[id number] Maxipime Inj 2,000 MG In NS Inj 100 / 100 100 ML @ 200 mls/hr IV.SIG Q8H STEFFANIE Rx#:[id number] Prostaphlin Inj 2 GM In NS Inj 400 / 400 100 / 100 100 ML @ 200 mls/hr IV.SIG Q4H STEFFANIE Rx#:[id number] NS Inj 2,000 ML @ As Directed 1999 IV.SIG NOW ONE Rx#:[id number] Vancomycin Inj 1,250 MG In NS 262.5 / 262.5 Inj 250 ML @ 250 mls/hr IV.SIG Q12H STEFFANIE Rx#:[id number] Oral 240 / 240 240 / 240 Output: Urine 200 / 200 Urine Amount (Catheter) 550 / 550 1150 / 1150 Condom 550 / 550 1150 / 1150 Other: # Incontinent Voids 1 Date of Last Bowel Movement 04/30/18 04/30/18 - Constitutional no acute distress - Routine Neck Exam Present: supple - Routine Respiratory Exam Present: CTA bilaterally - Routine Cardiovascular Exam Present: S1, S2, tachycardia - Routine Neurological Exam Present: moving all extremities - Urinary Catheter Management Condom Cath placed during this visit: no Assessment and Plan - Plan Altered Mental Status-Septic Emboli on Brain MRI Elevated troponin secondary to septic process, likely endocarditis Staph Aureus Bacteremia Hx of Hep C Plan: I briefly looked at the TTE while it was being performed and there was no clear cut evidence of vegetations. His LV function was normal without any RWMA. There is no significant valvular disease. Spoke with the ICU team, they would like a AURELIA. In the interim the patient will continue abx. Will continue to follow on. Thank you for allowing me to participate.
--- NOTE | 2018-05-02 14:49 | ECHRPT ---
Indication: CONCLUSIONS The left ventricular systolic function is normal with an estimated ejection fraction in the range of 60-65%. Normal left ventricular size. Wall thickness is normal. No regional wall motion abnormalities are present. Trace mitral valve regurgitation. There is trace tricuspid valve regurgitation. The estimated pulmonary arterial pressure is 24.9 mmHg. Trivial pulmonary valve regurgitation. doming of mitral valve leaflet tips with peak gradient = 7 mm hg suggestive of mild mitral valve manda nosis BP: / HR: Rhythm: Sinus MEASUREMENTS (Male / Female) Normal Values Technical Quality:Excellent 2D ECHO LV Diastolic Diameter PLAX 5.2 cm 4.2 - 5.9 / 3.9 - 5.3 cm LV Systolic Diameter PLAX 3.8 cm IVS Diastolic Thickness 0.9 cm 0.6 - 1.0 / 0.6 - 0.9 cm LVPW Diastolic Thickness 0.9 cm 0.6 - 1.0 / 0.6 - 0.9 cm LV Relative Wall Thickness 0.3 RV Internal Dim ED PLAX 2.5 cm LVOT Diameter 2.0 cm LA Systolic Diameter LX 3.0 cm 3.0 - 4.0 / 2.7 - 3.8 cm LV Ejection Fraction MOD 4C 66.4 % LV Ejection Fraction 4C AL 67.1 % M-MODE Aortic Root Diameter MM 2.5 cm LA Systolic Diameter MM 3.9 cm LA Ao Ratio MM 1.6 AV Cusp Separation MM 1.7 cm DOPPLER AV Peak Velocity 149.0 cm/s AV Peak Gradient 8.9 mmHg LVOT Peak Velocity 100.0 cm/s LVOT Peak Gradient 4.0 mmHg AV Area Cont Eq pk 2.1 cm MV Area PHT 3.7 cm Mitral E Point Velocity 128.0 cm/s Mitral A Point Velocity 63.7 cm/s Mitral E to A Ratio 2.0 LV E' Lateral Velocity 7.5 cm/s Mitral E to LV E' Lateral Ratio 17.0 LV E' Septal Velocity 7.2 cm/s Mitral E to LV E' Septal Ratio 17.8 TR Peak Velocity 193.0 cm/s TR Peak Gradient 14.9 mmHg Right Atrial Pressure 10.0 mmHg Pulmonary Artery Systolic Pressu 24.9 mmHg Right Ventricular Systolic Press 24.9 mmHg PV Peak Velocity 105.0 cm/s PV Peak Gradient 4.4 mmHg FINDINGS LEFT VENTRICLE The left ventricular systolic function is normal with an estimated ejection fraction in the range of 60-65%. Normal left ventricular size. Wall thickness is normal. No regional wall motion abnormalities are present. RIGHT VENTRICLE Normal right ventricular size and systolic function. LEFT ATRIUM The left atrial size is normal. RIGHT ATRIUM The right atrial size is normal. ATRIAL SEPTUM Normal atrial septal thickness without atrial level shunting by limited color doppler interrogation. AORTA The aortic root and proximal ascending aorta are normal in size on limited imaging. MITRAL VALVE Structurally normal mitral valve. Trace mitral valve regurgitation. AORTIC VALVE Trileaflet aortic valve. No aortic valve stenosis or regurgitation. TRICUSPID VALVE Structurally normal tricuspid valve. There is trace tricuspid valve regurgitation. The estimated pulmonary arterial pressure is 24.9 mmHg. PULMONARY VALVE Trivial pulmonary valve regurgitation. VESSELS The inferior vena cava is normal in size. PERICARDIUM No pericardial effusion. Venkata Lucio MD, FACC, [facility] [place] (Electronically Signed) Final Date:02 May 2018 14:48
[2018-05-02] MEDS: Enoxaparin Inj 40 MG/0.4 ML Syringe SQ SCH (17:23)
[2018-05-02] MEDS: HYDROmorphone PF Inj 2 MG/ML Vial IV.PUSH PRN (21:56)
[2018-05-03] MEDS: HYDROmorphone PF Inj 2 MG/ML Vial IV.PUSH PRN ×3 (01:32→16:41)
[2018-05-03] MEDS: Chlorhexidine Gluconate 2% 1 Pack (2 Cloths) TOPICAL SCH (03:22)
[2018-05-03 05:08] LABS: Hematocrit 37.2 % (39.0-51.0); Hemoglobin 12.5 gm/dL (13.0-17.0); Mean Corpuscular HGB Conc 33.7 % (32.0-36.0); Mean Corpuscular Hemoglobin 28.8 pg (27.0-34.0); Mean Corpuscular Volume 85.4 fL (80.0-100.0); Mean Platelet Volume 10.6 fL (7.0-11.0); Platelet Count 112 th/mm3 (150-450); Red Blood Count 4.36 mil/mm3 (4.50-5.90); Red Cell Distribution Width 14.6 % (11.6-17.2); White Blood Count 15.4 th/mm3 (4.0-11.0)
--- NOTE | 2018-05-03 05:23 | XR ---
EXAM DATE: 05/03/2018 5:18 AM EDT AGE/SEX: 38 years / Male INDICATIONS: Shortness of breath. CLINICAL DATA: This is the patient's subsequent encounter. Patient reports that signs and symptoms h ave been present for 4 - 6 days and indicates a pain score of Nonresponsive. MEDICAL/SURGICAL HISTORY: . IVDU. None. COMPARISON: [facility] [place], CT CHEST W CONTRAST, 04/30/2018. . FINDINGS: Portable AP view of the chest demonstrates a normal-sized cardiac silhouette. Lungs are underinflated . No effusion or pneumothorax is identified. Mild airspace consolidation is appreciated in the left u pper lobe. The bones and soft tissues demonstrate no acute finding. CONCLUSION: Mild left upper lobe airspace consolidation corresponding with the abnormality documented on prior est CT from 3 days ago. No other acute finding is identified. Electronically signed by: Adan Wise MD 05/03/2018 5:22 AM EDT
[2018-05-03] MEDS: Sod Chloride 0.9% Inj 1,000 ML IV.CONT SCH ×3 (05:32→17:55)
[2018-05-03 05:33] LABS: Alanine Aminotransferase 39 U/L (12-78); Albumin 1.8 g/dL (3.4-5.0); Alkaline Phosphatase 80 U/L (45-117); Anion Gap 9 meq/L (5-15); Aspartate Aminotransferase 74 U/L (15-37); Blood Urea Nitrogen 28 mg/dL (7-18); Calcium 7.7 mg/dL (8.5-10.1); Carbon Dioxide 23.6 meq/L (21.0-32.0); Chloride 115 meq/L (98-107); Glomerular Filtration Rate Greater Than 89 mL/min (>89); Glucose,Random 82 mg/dL (74-106); Magnesium 2.4 mg/dL (1.5-2.5); Potassium 3.2 meq/L (3.5-5.1); Sodium 148 meq/L (136-145); Total Protein 5.5 g/dL (6.4-8.2)
[2018-05-03] MEDS: Insulin NovoLOG Aspart Correctional Sugar Inj SQ SCH ×3 (05:33→17:53)
[2018-05-03] MEDS: Potassium Chlor 20 mEq Premix 20 MEQ/100 ML PIGGYBACK IV.SIG PRN ×4 (06:50→14:55)
[2018-05-03] MEDS: Famotidine PF Inj 20 MG/2 ML Vial IV.PUSH SCH ×2 (08:57→20:39)
[2018-05-03] MEDS: Senna/Docusate Sodium 8.6/50 MG Tablet PO SCH ×2 (08:57→20:39)
[2018-05-03] MEDS ORDERED: Lidocaine PF 1% Inj 5 ML Syringe OTHER ONE (09:50)
--- NOTE | 2018-05-03 15:21 | P.PNCC ---
Subjective Subjective Remarks/Hospital Course: Patient is 30-year-old male with history of IV drug use, prev endocarditis, Hepatitis C, who presented to the emergency department via [facility] from [place] for acute psychosis and altered mental status. CT of the head done at [place] was negative for acute findings. Patient was very confused and delirious at [facility] ED. His last IV drug use of heroin was 5 days ago. Urine drug screen is pending at this time. ER workup showed multiple abnormalities, pertinent ones being a white count of 16.1 with left shift, troponin 3.24, lactic acid 3.1, CPK of 592, potassium of 3.1. Received 3 L of normal saline in the ED and was given Zosyn and vancomycin. I evaluated the patient in the emergency department. He is confused delirious oriented to person only. He is very tachycardic and dry. Patient appears very critical and septic. With IV drug use patient most likely has recurrence of infective endocarditis. Cardiology consult as well as ID consult had been requested. I will give additional 1 L fluid bolus and continue vancomycin and Zosyn. I will place on Precedex. 2D echo is pending at this time 05/01: Patient remains critically ill confused encephalopathy but slightly better speech. MRI of the brain is pending at this time. CT of the abdomen pelvis showed splenic infarct and probable inflammatory changes of the left perinephric space. CT chest shows bilateral infiltrates. WBC count is elevated 20.4 today. On broad-spectrum antibiotics per ID. Echo pending. MRI brain shows Multifocal bilateral punctate infarcts, suspicious for embolic disease. Blood cx positive 11/29 GPC 05/02: Patient intermittently agitated overnight, Precedex closely started. Currently, speech is improved. Echo official report pending but preliminary no vegetation seen. Will schedule AURELIA. Blood cultures growing staph aureus. Antibiotics narrowed to oxacillin by ID 05/03: Drowsy, easily arousable. remains orally intubated on mech ventilation. Objective Vital Signs / I&O: Vital Signs 05/02/18 16:00 05/02/18 18:00 05/02/18 20:00 Temperature 97.7 F 103.3 F H Pulse Rate 78 84 86 Respiratory Rate 25 H 30 H Blood Pressure 117/73 128/73 Pulse Oximetry 100 100 05/02/18 20:23 05/03/18 00:00 05/03/18 04:00 Temperature 99 F 99.3 F Pulse Rate 73 77 Respiratory Rate 28 H 22 20 Blood Pressure 95/58 L 118/69 Pulse Oximetry 99 99 Intake & Output 05/02/18 05/03/18 05/03/18 18:59 06:59 18:59 Intake Total 2330 / 2330 2150 / 2150 400 / 400 Output Total 1300 / 1300 1400 / 1400 Balance 1030 / 1030 750 / 750 400 / 400 Weight 87.1 kg Intake: IV 1850 / 1850 1400 / 1400 400 / 400 Precedex Inj 200 MCG In NS Inj 50 / 50 48 ML @ 0.2 MCG/KG/HR 4.53 mls/ hr IV.CONT TITRATE PRN Rx#: [id number] Neosynephrine Inj 40 MG In D5W 500 / 500 Inj 496 ML @ 40 MCG/MIN 30 mls/ hr IV.CONT TITRATE PRN Rx#: [id number] NS Inj 1,000 ML @ 100 mls/hr IV 1000 / 1000 1000 / 1000 .CONT .Q10H [facility] Rx#:[id number] Ofirmev Inj 1,000 mg In 100 ml 100 / 100 @ 400 mls/hr IV.SIG Q6H PRN Rx# :[id number] Prostaphlin Inj 2 GM In NS Inj 300 / 300 300 / 300 100 / 100 100 ML @ 200 mls/hr IV.SIG Q4H [facility] Rx#:[id number] KCl 20 mEq Premix Inj 20 meq In 300 / 300 100 ml @ 50 mls/hr IV.SIG Q2H PRN Rx#:[id number] Oral 480 / 480 750 / 750 Output: Urine Amount (Catheter) 1300 / 1300 1400 / 1400 Condom 1300 / 1300 1400 / 1400 Result Diagrams: 05/03/18 04:50 05/03/18 04:50 Objective Remarks: GENERAL: 38-year-old male who is ill-appearing tachycardic SKIN: Warm/dry. Multiple tattoos. Multiple skin petechia HEAD: Atraumatic. Normocephalic. EYES: Pupils equal and round. No scleral icterus. Conjunctival splinter hemorrhages present ENT: No nasal bleeding or discharge. Mucous membranes dry. NECK: Trachea midline. No JVD. CARDIOVASCULAR: Tachycardic rate and rhythm. No murmur appreciated. RESPIRATORY: No accessory muscle use. Clear to auscultation. Breath sounds equal bilaterally. GASTROINTESTINAL: Abdomen soft, tenderness in epigastric region, nondistended. Hepatic and splenic margins not palpable. MUSCULOSKELETAL: No obvious deformities. No clubbing. NEUROLOGICAL: Awake and able to state his name, knows that he is in a hospital but did not know the name of the place. Speech improved. Moving all 4 extremities no focal deficits. Assessment and Plan - Problem List (1) Severe sepsis Code(s): A41.9 - Sepsis, unspecified organism; R65.20 - Severe sepsis without septic shock Status: Acute (2) Acute metabolic encephalopathy Code(s): G93.41 - Metabolic encephalopathy Status: Acute (3) Delirium Code(s): R41.0 - Disorientation, unspecified Status: Acute (4) Drug withdrawal Code(s): F19.939 - Other psychoactive substance use, unspecified with withdrawal , unspecified Status: Acute (5) Lactic acidosis Code(s): E87.2 - Acidosis Status: Acute (6) Hypokalemia Code(s): E87.6 - Hypokalemia Status: Acute (7) Rhabdomyolysis Code(s): M62.82 - Rhabdomyolysis Status: Acute (8) Non-ST elevation CA (NSTEMI) Code(s): I21.4 - Non-ST elevation (NSTEMI) myocardial infarction Status: Acute (9) Polysubstance abuse Code(s): F19.10 - Other psychoactive substance abuse, uncomplicated Status: Acute (10) Dehydration Code(s): E86.0 - Dehydration Status: Acute - Assessment and Plan Plan: NEURO: Acute metabolic encephalopathy Multifocal bilateral punctate infarcts, probable septic emboli Polysubstance abuse with withdrawal -Off Precedex. -MRI brain shows Multifocal bilateral punctate infarcts, suspicious for embolic disease. -Neurology consult for embolic bilateral infarcts. Dr. Arzate. Continue aspirin -Watch closely for drug withdrawal -Supplement multivitamin thiamine -Watch closely for signs of meningitis/brain abscess from septic emboli -PT OOB RESP: Respiratory insufficiency Pneumonia/septic emboli -DuoNeb every 6 hours as needed -Sputum culture if available -CT chest shows bilateral infiltrates CV: Lactic acidosis NSTEMI Infective endocarditis -s/p Normal saline IV fluids 4L bolus and continue NS 125 ml per hour -2d echo report prelim negative, cardiology consult Dr. Martines, serial troponin, serial lactic acid -AURELIA shows large mitral valve vegetation (05/03) -Continue aspirin carvedilol. Avoid statins at this time due to hep C -Elevated troponin may be secondary to coronary artery septic emboli GI: Hepatitis C -IV famotidine. Start regular diet -Speech pathology consulted for speech evaluation and swallow evaluation : Renal insufficiency -Monitor renal function closely. [place] catheter. Fluid resuscitation as above ID: Severe sepsis Probable infective endocarditis -Antibiotics with vancomycin and Cefepime, ID Dr. Lucio-changed to Oxacillin 05/01/18 -Blood urine and sputum cultures -Blood culture with GPC 4 staph aureus HEME: -Monitor CBC, coags ENDO: -Electrolyte replacement per protocol -Sliding scale insulin if needed PROPH: -Bilateral lower extremity SCDs. famotidine. Start Lovenox 40 mg sq daily LINES: -Utilize peripheral IVs, central line if needed Consult and transfer to hospitalist service for further medical management. Critical care will be signing off, please reconsult if needed. Level 3
[2018-05-03] MEDS: Enoxaparin Inj 40 MG/0.4 ML Syringe SQ SCH (16:43)
[2018-05-04] MEDS: Insulin NovoLOG Aspart Correctional Sugar Inj SQ SCH ×5 (00:40→23:24)
--- NOTE | 2018-05-04 01:03 | ECHRPT ---
Indication: CONCLUSIONS The left ventricular systolic function is normal with an estimated ejection fraction in the range of 55-60%. Large mobile density on the anterior leaflet consistent with endocarditis (3cm x 1cm). Trace mitral valve regurgitation. BP: / HR: Rhythm: Technical Quality:Good Medications Complications Proc. Components Anesthesia at the bedside for sedation FINDINGS LEFT VENTRICLE Normal left ventricular size. The left ventricular systolic function is normal with an estimated ejection fraction in the range of 55-60%. No regional wall motion abnormalities are present. RIGHT VENTRICLE Grossly normal LEFT ATRIUM The left atrial size is normal. RIGHT ATRIUM The right atrial size is normal. ATRIAL APPENDAGES Normal left atrial appendage size with no evidence of thrombus formation. ATRIAL SEPTUM Normal atrial septal thickness without atrial level shunting by limited color doppler interrogation. AORTA The aortic root and proximal ascending aorta are normal in size on limited imaging. MITRAL VALVE Structurally normal mitral valve. Trace mitral valve regurgitation. No mitral valve stenosis. Large mobile density on the anterior leaflet consistent with endocarditis (3cm x 1cm) AORTIC VALVE Trileaflet aortic valve. No aortic valve stenosis or regurgitation. TRICUSPID VALVE Structurally normal tricuspid valve. There is trace tricuspid valve regurgitation. No tricuspid valv e stenosis. VESSELS The pulmonary valve is not well visualized. No pulmonary valve regurgitation. Sukhjinder Foster DO (Electronically Signed) Final Date:04 May 2018 01:02
[2018-05-04] MEDS: Chlorhexidine Gluconate 2% 1 Pack (2 Cloths) TOPICAL SCH (04:47)
[2018-05-04] MEDS: Sod Chloride 0.9% Inj 1,000 ML IV.CONT SCH ×2 (07:23→09:35)
[2018-05-04] MEDS: Senna/Docusate Sodium 8.6/50 MG Tablet PO SCH ×2 (09:12→22:46)
[2018-05-04] MEDS: Famotidine PF Inj 20 MG/2 ML Vial IV.PUSH SCH (09:12)
[2018-05-04] MEDS ORDERED: HYDROmorphone PF Inj 2 MG/ML Vial IV.PUSH PRN (09:54)
[2018-05-04 11:38] LABS: Alanine Aminotransferase 28 U/L (12-78); Albumin 1.8 g/dL (3.4-5.0); Alkaline Phosphatase 86 U/L (45-117); Anion Gap 13 meq/L (5-15); Aspartate Aminotransferase 39 U/L (15-37); Blood Urea Nitrogen 22 mg/dL (7-18); Calcium 7.4 mg/dL (8.5-10.1); Carbon Dioxide 23.2 meq/L (21.0-32.0); Chloride 118 meq/L (98-107); Glomerular Filtration Rate Greater Than 89 mL/min (>89); Glucose,Random 94 mg/dL (74-106); Potassium 3.3 meq/L (3.5-5.1); Sodium 154 meq/L (136-145); Total Protein 5.7 g/dL (6.4-8.2)
--- NOTE | 2018-05-04 13:48 | P.PNCA ---
Subjective Interval history: No acute events. Still has slurred speech. Mitral Vegetation seen on AURELIA. Physical Exam Vital signs: Vital Signs 05/03/18 16:00 05/03/18 20:00 05/03/18 22:00 Temperature 99.1 F 99.2 F Pulse Rate 94 H 93 H 100 H Respiratory Rate 27 H 24 Blood Pressure 159/98 H 169/108 H Pulse Oximetry 100 100 05/04/18 00:00 05/04/18 02:00 05/04/18 04:00 Temperature 98.8 F 98.9 F Pulse Rate 96 H 93 H 90 Respiratory Rate 19 18 Blood Pressure 163/98 H 147/84 H Pulse Oximetry 99 99 05/04/18 06:00 Temperature Pulse Rate 95 H Respiratory Rate Blood Pressure Pulse Oximetry Intake & Output 05/03/18 05/04/18 05/04/18 18:59 06:59 18:59 Intake Total 1350 / 1350 200 / 200 1100 / 1100 Output Total 1400 / 1400 500 / 500 Balance -50 / -50 -300 / -300 1100 / 1100 Weight 87.6 kg Intake: IV 600 / 600 200 / 200 1100 / 1100 NS Inj 1,000 ML @ 100 mls/hr IV 1000 / 1000 .CONT .Q10H [facility] Rx#:[id number] Prostaphlin Inj 2 GM In NS Inj 300 / 300 200 / 200 100 / 100 100 ML @ 200 mls/hr IV.SIG Q4H [facility] Rx#:[id number] KCl 20 mEq Premix Inj 20 meq In 300 / 300 100 ml @ 50 mls/hr IV.SIG Q2H PRN Rx#:[id number] Oral 750 / 750 Output: Urine Amount (Catheter) 1400 / 1400 500 / 500 Condom 1400 / 1400 500 / 500 Other: # Incontinent Voids 3 - Constitutional mild distress - Routine HEENT Exam Eye: Present: EOMI - Routine Neck Exam Absent: JVD - Routine Respiratory Exam Present: CTA bilaterally - Routine Cardiovascular Exam Present: RRR, S1, S2 - Routine Abdominal Exam Present: soft, normoactive bowel sounds - Routine Neurological Exam Absent: normal speech (slurred speach) - Urinary Catheter Management Condom Cath placed during this visit: no Assessment and Plan - Plan Altered Mental Status-Septic Emboli on Brain MRI Type 2 NSTEMI Endocarditis with 1-3cm mobile vegetation on the Mitral Valve Staph Aureus Bacteremia Hx of Hep C Plan: Continue current supportive care and antibiotics (Oxacillin). Will touch base with CV surgery regarding their thoughts on MVR given the mobile nature of the mass, size, and evidence of embolism. There does not appear to be MR. He has had prior episodes of endocarditis and admits to IVDA, therefore may not be ideal candidate. Spoke with Dr. Dominguez given history of IVDA, would not rec Surgery at this time
--- NOTE | 2018-05-04 14:15 | P.PN ---
Subjective Interval history: Consulted by critical care medicine for med management and transfer care. Chart reviewed. Case discussed with nursing. He is awake but confused. Following simple commands Physical Exam Vital signs: Vital Signs 05/03/18 16:00 05/03/18 20:00 05/03/18 22:00 Temperature 99.1 F 99.2 F Pulse Rate 94 H 93 H 100 H Respiratory Rate 27 H 24 Blood Pressure 159/98 H 169/108 H Pulse Oximetry 100 100 05/04/18 00:00 05/04/18 02:00 05/04/18 04:00 Temperature 98.8 F 98.9 F Pulse Rate 96 H 93 H 90 Respiratory Rate 19 18 Blood Pressure 163/98 H 147/84 H Pulse Oximetry 99 99 05/04/18 06:00 05/04/18 14:12 Temperature Pulse Rate 95 H Respiratory Rate 21 Blood Pressure Pulse Oximetry Intake & Output 05/03/18 05/04/18 05/04/18 18:59 06:59 18:59 Intake Total 1450 / 1450 200 / 200 1100 / 1100 Output Total 1400 / 1400 500 / 500 Balance 50 / 50 -300 / -300 1100 / 1100 Weight 87.6 kg Intake: IV 700 / 700 200 / 200 1100 / 1100 NS Inj 1,000 ML @ 100 mls/hr IV 1000 / 1000 .CONT .Q10H [facility] Rx#:[id number] Prostaphlin Inj 2 GM In NS Inj 300 / 300 200 / 200 100 / 100 100 ML @ 200 mls/hr IV.SIG Q4H [facility] Rx#:[id number] KCl 20 mEq Premix Inj 20 meq In 400 / 400 100 ml @ 50 mls/hr IV.SIG Q2H PRN Rx#:[id number] Oral 750 / 750 Output: Urine Amount (Catheter) 1400 / 1400 500 / 500 Condom 1400 / 1400 500 / 500 Other: # Incontinent Voids 3 Narrative: GENERAL: 38-year-old male who is ill-appearing SKIN: Warm/dry. Multiple tattoos. Multiple skin petechia CARDIOVASCULAR: Regular rate and rhythm RESPIRATORY: No accessory muscle use. Clear to auscultation. Breath sounds equal bilaterally. GASTROINTESTINAL: Abdomen soft, tenderness in epigastric region, nondistended. MUSCULOSKELETAL: No obvious deformities. No clubbing. NEUROLOGICAL: Awake and able to state his name, knows that he is in a hospital but did not know the name of the place. Speech improved. Moving all 4 extremities no focal deficits. - Urinary Catheter Management Condom Cath placed during this visit: no Results - Labs CBC & Chem 7: 05/03/18 04:50 05/04/18 10:31 Laboratory Results - last 24 hr 05/04/18 05/04/18 05/04/18 00:33 06:23 08:18 Sodium Potassium Chloride Carbon Dioxide Anion Gap BUN Creatinine Estimated GFR POC Glucose 78 84 81 Random Glucose Calcium Prot Corrected Calcium Total Bilirubin AST ALT Alkaline Phosphatase Total Protein Albumin 05/04/18 05/04/18 10:31 12:34 Sodium 154 H Potassium 3.3 L Chloride 118 H Carbon Dioxide 23.2 Anion Gap 13 BUN 22 H Creatinine 0.82 Estimated GFR Greater than 89 POC Glucose 87 Random Glucose 94 Calcium 7.4 L* Prot Corrected Calcium 8.2 L Total Bilirubin 0.8 AST 39 H ALT 28 Alkaline Phosphatase 86 Total Protein 5.7 L Albumin 1.8 L Microbiology 05/02/18 20:19 Blood - Peripheral Aerobic Blood Culture - Preliminary No growth in 2 days 05/02/18 20:19 Blood - Peripheral Anaerobic Blood Culture - Preliminary No growth in 2 days 05/02/18 20:14 Blood - Peripheral Aerobic Blood Culture - Preliminary gram positive cocci 05/02/18 20:14 Blood - Peripheral Anaerobic Blood Culture - Preliminary No growth in 2 days 04/30/18 09:00 Blood - Peripheral Aerobic Blood Culture - Final Staphylococcus aureus 04/30/18 09:00 Blood - Peripheral Anaerobic Blood Culture - Final Staphylococcus aureus 04/30/18 09:08 Blood - Peripheral Aerobic Blood Culture - Final Staphylococcus aureus 04/30/18 09:08 Blood - Peripheral Anaerobic Blood Culture - Final Staphylococcus aureus - Imaging ITS Impressions Chest CT 04/30/18 00:00 CONCLUSION: 1. Parenchymal process bilaterally most likely inflammatory and pneumonia. Abdomen/Pelvis CT 04/30/18 08:48 CONCLUSION: 1. 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 2. Haziness in the anterior margins of the perinephric space at the junction of the spleen possibly inflammatory process of uncertain etiology. Head CT 04/30/18 16:58 CONCLUSION: Chronic sinusitis and possible nasal polyposis and otherwise brain CT is otherwise unremarkable. Head MRI 05/01/18 00:00 CONCLUSION: 1. Multifocal bilateral punctate infarcts, suspicious for embolic disease. 2. No midline shift or mass effect. Chest X-Ray 05/03/18 06:00 CONCLUSION: Mild left upper lobe airspace consolidation corresponding with the abnormality documented on prior chest CT from 3 days ago. No other acute finding is identified. - Procedures AURELIA Assessment and Plan - Plan NEURO: Acute metabolic encephalopathy Multifocal bilateral punctate infarcts, probable septic emboli Polysubstance abuse with withdrawal -Off Precedex. -MRI brain shows Multifocal bilateral punctate infarcts, suspicious for embolic disease. -Neurology consult for embolic bilateral infarcts. Dr. Mike. Continue aspirin -Watch closely for drug withdrawal -Supplement multivitamin thiamine -Watch closely for signs of meningitis/brain abscess from septic emboli -PT OOB RESP: Respiratory insufficiency Pneumonia/septic emboli -DuoNeb every 6 hours as needed -Sputum culture if available -CT chest shows bilateral infiltrates CV: Lactic acidosis NSTEMI Infective endocarditis -s/p Normal saline IV fluids 4L bolus -2d echo report prelim negative, cardiology consult Dr. Martines -AURELIA shows large mitral valve vegetation (05/03) -Continue aspirin carvedilol. Avoid statins at this time due to hep C -Elevated troponin may be secondary to coronary artery septic emboli GI: Hepatitis C -O/p f/u -Speech pathology consulted for speech evaluation and swallow evaluation : Renal insufficiency -Monitor renal function closely. Dc Magaña catheter. Fluid resuscitation as above ID: Severe sepsis MSSA infective endocarditis -Oxacillin 05/01/18 -Blood urine and sputum cultures -Blood culture with GPC 4 staph aureus HEME: -Monitor CBC, coags ENDO: -Electrolyte replacement per protocol -Sliding scale insulin if needed PROPH: -Bilateral lower extremity SCDs. Lovenox 40 mg sq daily LINES: -Utilize peripheral IVs, central line if needed Discharge Planning: Stale to floor
[2018-05-04] MEDS: Enoxaparin Inj 40 MG/0.4 ML Syringe SQ SCH (16:46)
--- NOTE | 2018-05-04 19:26 | P.PNID ---
Subjective Remarks: Last clx + again AURELIA with large mobile density on the anterior leaflet of mitral valve consistent with endocarditis (3cm x 1cm) Antibiotics: ocxacillin Past Medical History: IVDU Allergies/Adverse Reactions: Allergies No Known Allergies Allergy (Unknown, Uncoded 07/13/17 00:28) Objective Vital Signs 05/03/18 20:00 05/03/18 22:00 05/04/18 00:00 Temperature 99.2 F 98.8 F Pulse Rate 93 H 100 H 96 H Respiratory Rate 24 19 Blood Pressure 169/108 H 163/98 H Pulse Oximetry 100 99 05/04/18 02:00 05/04/18 04:00 05/04/18 06:00 Temperature 98.9 F Pulse Rate 93 H 90 95 H Respiratory Rate 18 Blood Pressure 147/84 H Pulse Oximetry 99 05/04/18 08:00 05/04/18 09:00 05/04/18 09:28 Temperature 100.0 F H Pulse Rate 91 H 98 H 96 H Respiratory Rate 24 24 27 H Blood Pressure 139/92 H 146/107 H 160/92 H Pulse Oximetry 99 98 05/04/18 10:00 05/04/18 11:00 05/04/18 12:00 Temperature 98.0 F Pulse Rate 95 H 92 H 95 H Respiratory Rate 26 H 29 H 32 H Blood Pressure 168/92 H 137/86 139/99 H Pulse Oximetry 99 99 99 05/04/18 13:00 05/04/18 14:00 05/04/18 14:12 Temperature Pulse Rate 93 H 87 Respiratory Rate 28 H 21 21 Blood Pressure 148/92 H 136/80 Pulse Oximetry 99 94 L 05/04/18 15:00 05/04/18 16:00 Temperature 100.6 F H Pulse Rate 93 H 94 H Respiratory Rate 19 20 Blood Pressure 143/87 H 142/94 H Pulse Oximetry 98 98 Intake & Output 05/04/18 05/04/18 05/05/18 06:59 18:59 06:59 Intake Total 200 / 200 1500 / 1500 Output Total 500 / 500 Balance -300 / -300 1500 / 1500 Weight 87.6 kg Intake: IV 200 / 200 1500 / 1500 Neosynephrine Inj 40 MG In D5W 0 / 0 Inj 496 ML @ 40 MCG/MIN 30 mls/ hr IV.CONT TITRATE PRN Rx#: [id number] NS Inj 1,000 ML @ 100 mls/hr IV 1200 / 1200 .CONT .Q10H STEFFANIE Rx#:[id number] Prostaphlin Inj 2 GM In NS Inj 200 / 200 300 / 300 100 ML @ 200 mls/hr IV.SIG Q4H [facility] Rx#:[id number] Output: Urine Amount (Catheter) 500 / 500 Condom 500 / 500 Other: # Incontinent Voids 3 05/02/18 20:19 Blood - Peripheral Aerobic Blood Culture - Preliminary No growth in 2 days 05/02/18 20:19 Blood - Peripheral Anaerobic Blood Culture - Preliminary No growth in 2 days 05/02/18 20:14 Blood - Peripheral Aerobic Blood Culture - Preliminary gram positive cocci 05/02/18 20:14 Blood - Peripheral Anaerobic Blood Culture - Preliminary No growth in 2 days 04/30/18 09:00 Blood - Peripheral Aerobic Blood Culture - Final Staphylococcus aureus 04/30/18 09:00 Blood - Peripheral Anaerobic Blood Culture - Final Staphylococcus aureus 04/30/18 09:08 Blood - Peripheral Aerobic Blood Culture - Final Staphylococcus aureus 04/30/18 09:08 Blood - Peripheral Anaerobic Blood Culture - Final Staphylococcus aureus 04/30/18 15:10 Clean Catch Urine Urine Culture - Final No growth in 48 hours Lab - Hematology Results 05/03/18 04:50 WBC 15.4 H RBC 4.36 L Hgb 12.5 L Hct 37.2 L MCV 85.4 MCH 28.8 MCHC 33.7 RDW 14.6 Plt Count 112 L MPV 10.6 Lab - Chemistry Results 05/02/18 05/03/18 05/03/18 23:47 04:50 12:24 Sodium 148 H Potassium 3.2 L Chloride 115 H Carbon Dioxide 23.6 Anion Gap 9 BUN 28 H Creatinine 0.92 Estimated GFR Greater than 89 POC Glucose 94 78 Random Glucose 82 Calcium 7.7 L Prot Corrected Calcium Magnesium 2.4 Total Bilirubin 1.2 H AST 74 H ALT 39 Alkaline Phosphatase 80 Total Protein 5.5 L Albumin 1.8 L 05/04/18 05/04/18 05/04/18 00:33 06:23 08:18 Sodium Potassium Chloride Carbon Dioxide Anion Gap BUN Creatinine Estimated GFR POC Glucose 78 84 81 Random Glucose Calcium Prot Corrected Calcium Magnesium Total Bilirubin AST ALT Alkaline Phosphatase Total Protein Albumin 05/04/18 05/04/18 05/04/18 10:31 12:34 17:36 Sodium 154 H Potassium 3.3 L Chloride 118 H Carbon Dioxide 23.2 Anion Gap 13 BUN 22 H Creatinine 0.82 Estimated GFR Greater than 89 POC Glucose 87 92 Random Glucose 94 Calcium 7.4 L* Prot Corrected Calcium 8.2 L Magnesium Total Bilirubin 0.8 AST 39 H ALT 28 Alkaline Phosphatase 86 Total Protein 5.7 L Albumin 1.8 L Imaging: ITS Impressions Chest CT 04/30/18 00:00 CONCLUSION: 1. Parenchymal process bilaterally most likely inflammatory and pneumonia. Abdomen/Pelvis CT 04/30/18 08:48 CONCLUSION: 1. 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 2. Haziness in the anterior margins of the perinephric space at the junction of the spleen possibly inflammatory process of uncertain etiology. Head CT 04/30/18 16:58 CONCLUSION: Chronic sinusitis and possible nasal polyposis and otherwise brain CT is otherwise unremarkable. Head MRI 05/01/18 00:00 CONCLUSION: 1. Multifocal bilateral punctate infarcts, suspicious for embolic disease. 2. No midline shift or mass effect. Chest X-Ray 05/03/18 06:00 CONCLUSION: Mild left upper lobe airspace consolidation corresponding with the abnormality documented on prior chest CT from 3 days ago. No other acute finding is identified. Physical Exam: GENERAL: NAD SKIN: Warm and dry. Petechial and Janeway lesions HEAD: Atraumatic. Normocephalic. EYES: Pupils equal and round. No scleral icterus. No injection or drainage. numerous conjubnctival hmrgs ENT: No nasal bleeding or discharge. Mucous membranes pink and moist. NECK: Trachea midline. No JVD. CARDIOVASCULAR: Regular rate and rhythm. RESPIRATORY: No accessory muscle use. Clear to auscultation. Breath sounds equal bilaterally. GASTROINTESTINAL: Abdomen soft, non-tender, nondistended. Hepatic and splenic margins not palpable. MUSCULOSKELETAL: Extremities without clubbing, cyanosis, or edema. No obvious deformities. NEUROLOGICAL: Lethargic, arousable follows all 4 Garbled speech, L side hemig=plegia having problems moving BLE PSYCHIATRIC: intermittently cooperats calm Assessment and Plan - Plan mitral valve endocariditis with a 3 cm vegetations Multiple embolic strokes Elevated troponin brain septic emboli Pt has difficulty speaking which appear new (per 06/2017 record he had clear speech) and per RN got worse thru the shift CT head w/o c negative @ 2300 BRENDA, mild - cont oxacilin - MRI T, L spine - chk more blood clx
[2018-05-05] MEDS: Chlorhexidine Gluconate 2% 1 Pack (2 Cloths) TOPICAL SCH (03:02)
[2018-05-05] MEDS: Insulin NovoLOG Aspart Correctional Sugar Inj SQ SCH ×3 (06:52→21:08)
[2018-05-05] MEDS: Senna/Docusate Sodium 8.6/50 MG Tablet PO SCH ×2 (09:05→22:24)
[2018-05-05 09:20] LABS: Baso # (Auto) 0.1 th/mm3 (0.0-0.2); Baso % (Auto) 0.4 % (0.0-2.0); Eos # (Auto) 0.1 th/mm3 (0.0-0.4); Eos % (Auto) 0.6 % (0.0-4.0); Lymph # (Auto) 1.3 th/mm3 (1.0-4.8); Lymph % (Auto) 8.2 % (9.0-44.0); Mean Corpuscular HGB Conc 34.5 % (32.0-36.0); Mean Corpuscular Hemoglobin 29.2 pg (27.0-34.0); Mean Corpuscular Volume 84.6 fL (80.0-100.0); Mono % (Auto) 12.8 % (0.0-8.0); Platelet Count 213 th/mm3 (150-450); Red Blood Count 3.42 mil/mm3 (4.50-5.90); Red Cell Distribution Width 14.6 % (11.6-17.2); White Blood Count 15.3 th/mm3 (4.0-11.0)
[2018-05-05 09:39] LABS: Anion Gap 10 meq/L (5-15); Blood Urea Nitrogen 26 mg/dL (7-18); Calcium 7.8 mg/dL (8.5-10.1); Carbon Dioxide 24.1 meq/L (21.0-32.0); Chloride 122 meq/L (98-107); Glomerular Filtration Rate Greater Than 89 mL/min (>89); Glucose,Random 86 mg/dL (74-106); Magnesium 2.4 mg/dL (1.5-2.5); Potassium 3.1 meq/L (3.5-5.1)
[2018-05-05 09:48] LABS: Phosphorus 3.6 mg/dL (2.5-4.9)
[2018-05-05 09:50] LABS: Sodium 156 meq/L (136-145)
[2018-05-05] MEDS ORDERED: Sodium Chloride 0.45 % Inj 500 ML IV.SIG ONE (10:13)
[2018-05-05 10:15] LABS: Dohle Bodies Present; Lymphocytes 5 % (9-44); Monocytes 3 % (0-8); Myelocytes 5 % (0-0)
[2018-05-05] MEDS ORDERED: Sodium Chloride 0.45 % Inj 1,000 ML IV.CONT SCH (10:15)
[2018-05-05 10:16] LABS: Ovalocytes 1+; Platelet Estimate Normal (Normal); Toxic Granulation 1+
[2018-05-05 10:17] LABS: Platelet Morphology Normal (Normal)
[2018-05-05] MEDS: Potassium Chlor 10 mEq Premix 10 MEQ/100 ML PIGGYBACK IV.SIG SCH ×3 (12:49→20:45)
--- NOTE | 2018-05-05 15:16 | P.PNID ---
Subjective Remarks: Pt is very confused smearing own feces, not following commands complaints on back pain, unable to explain details febrile, low grade <101 AURELIA with large mobile density on the anterior leaflet of mitral valve consistent with endocarditis (3cm x 1cm) Antibiotics: ocxacillin Past Medical History: IVDU Allergies/Adverse Reactions: Allergies No Known Allergies Allergy (Unknown, Uncoded 07/13/17 00:28) Objective Vital Signs 05/04/18 16:00 05/04/18 20:00 05/05/18 00:00 Temperature 100.6 F H 98 F 98.1 F Pulse Rate 94 H 94 H 100 H Respiratory Rate 20 17 19 Blood Pressure 142/94 H 118/73 123/65 Pulse Oximetry 98 99 98 05/05/18 04:00 05/05/18 08:00 05/05/18 12:00 Temperature 98.4 F 98.3 F 99.5 F Pulse Rate 89 92 H 84 Respiratory Rate 17 21 21 Blood Pressure 149/95 H 156/90 H 144/77 H Pulse Oximetry 97 94 L 93 L Intake & Output 05/04/18 05/05/18 05/05/18 18:59 06:59 18:59 Intake Total 1500 / 1500 200 / 200 300 / 300 Output Total 450 / 450 Balance 1500 / 1500 -250 / -250 300 / 300 Weight 85.2 kg Intake: IV 1500 / 1500 200 / 200 300 / 300 Neosynephrine Inj 40 MG In D5W 0 / 0 Inj 496 ML @ 40 MCG/MIN 30 mls/ hr IV.CONT TITRATE PRN Rx#: [id number] NS Inj 1,000 ML @ 100 mls/hr IV 1200 / 1200 .CONT .Q10H STEFFANIE Rx#:[id number] Prostaphlin Inj 2 GM In NS Inj 300 / 300 200 / 200 200 / 200 100 ML @ 200 mls/hr IV.SIG Q4H STEFFANIE Rx#:[id number] KCl 10 mEq Premix Inj 10 meq In 100 / 100 100 ml @ 100 mls/hr IV.SIG Q1H STEFFANIE Rx#:[id number] Output: Urine 450 / 450 Other: # Incontinent Voids 3 Date of Last Bowel Movement 04/30/18 05/02/18 20:19 Blood - Peripheral Aerobic Blood Culture - Preliminary No growth in 3 days 05/02/18 20:19 Blood - Peripheral Anaerobic Blood Culture - Preliminary No growth in 3 days 05/02/18 20:14 Blood - Peripheral Aerobic Blood Culture - Final Staphylococcus aureus 05/02/18 20:14 Blood - Peripheral Anaerobic Blood Culture - Preliminary No growth in 3 days 04/30/18 09:00 Blood - Peripheral Aerobic Blood Culture - Final Staphylococcus aureus 04/30/18 09:00 Blood - Peripheral Anaerobic Blood Culture - Final Staphylococcus aureus 04/30/18 09:08 Blood - Peripheral Aerobic Blood Culture - Final Staphylococcus aureus 04/30/18 09:08 Blood - Peripheral Anaerobic Blood Culture - Final Staphylococcus aureus Lab - Hematology Results 05/05/18 08:25 WBC 15.3 H RBC 3.42 L Hgb 10.0 L Hct 29.0 L MCV 84.6 MCH 29.2 MCHC 34.5 RDW 14.6 Plt Count 213 D MPV 9.0 Prelim Diff (Auto) Slide review pending Neut % (Auto) 78.0 H Lymph % (Auto) 8.2 L [place] % (Auto) 12.8 H Eos % (Auto) 0.6 Baso % (Auto) 0.4 Neut # (Auto) 12.0 H Lymph # (Auto) 1.3 [place] # (Auto) 2.0 H Eos # (Auto) 0.1 Baso # (Auto) 0.1 WBC Differential Manual diff final Seg Neuts % (Manual) 81 H Band Neuts % (Manual) 6 Lymphocytes % (Manual) 5 L Monocytes % (Manual) 3 Myelocytes % (Man) 5 H Abs Neuts (Manual) 14.1 H Differential Comment . Toxic Granulation 1+ H Dohle Bodies Present H Platelet Estimate Normal Platelet Morphology Normal Ovalocytes 1+ H Lab - Chemistry Results 05/04/18 05/04/18 05/04/18 00:33 06:23 08:18 Sodium Potassium Chloride Carbon Dioxide Anion Gap BUN Creatinine Estimated GFR POC Glucose 78 84 81 Random Glucose Calcium Prot Corrected Calcium Phosphorus Magnesium Total Bilirubin AST ALT Alkaline Phosphatase Total Protein Albumin 05/04/18 05/04/18 05/04/18 10:31 12:34 17:36 Sodium 154 H Potassium 3.3 L Chloride 118 H Carbon Dioxide 23.2 Anion Gap 13 BUN 22 H Creatinine 0.82 Estimated GFR Greater than 89 POC Glucose 87 92 Random Glucose 94 Calcium 7.4 L* Prot Corrected Calcium 8.2 L Phosphorus Magnesium Total Bilirubin 0.8 AST 39 H ALT 28 Alkaline Phosphatase 86 Total Protein 5.7 L Albumin 1.8 L 05/04/18 05/05/18 05/05/18 23:18 06:51 08:25 Sodium 156 H* Potassium 3.1 L Chloride 122 H Carbon Dioxide 24.1 Anion Gap 10 BUN 26 H Creatinine 0.87 Estimated GFR Greater than 89 POC Glucose 90 86 Random Glucose 86 Calcium 7.8 L Prot Corrected Calcium Phosphorus 3.6 Magnesium 2.4 Total Bilirubin AST ALT Alkaline Phosphatase Total Protein Albumin Imaging: ITS Impressions Chest CT 04/30/18 00:00 CONCLUSION: 1. Parenchymal process bilaterally most likely inflammatory and pneumonia. Abdomen/Pelvis CT 04/30/18 08:48 CONCLUSION: 1. 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 2. Haziness in the anterior margins of the perinephric space at the junction of the spleen possibly inflammatory process of uncertain etiology. Head CT 04/30/18 16:58 CONCLUSION: Chronic sinusitis and possible nasal polyposis and otherwise brain CT is otherwise unremarkable. Head MRI 05/01/18 00:00 CONCLUSION: 1. Multifocal bilateral punctate infarcts, suspicious for embolic disease. 2. No midline shift or mass effect. Chest X-Ray 05/03/18 06:00 CONCLUSION: Mild left upper lobe airspace consolidation corresponding with the abnormality documented on prior chest CT from 3 days ago. No other acute finding is identified. Physical Exam: GENERAL: NAD SKIN: Warm and dry. extensive petechial and [place] lesions HEAD: Atraumatic. Normocephalic. EYES: Pupils equal and round. No scleral icterus. No injection or drainage. numerous conjubnctival hmrgs ENT: No nasal bleeding or discharge. Mucous membranes pink and moist. NECK: Trachea midline. No JVD. CARDIOVASCULAR: Regular rate and rhythm. RESPIRATORY: No accessory muscle use. Clear to auscultation. Breath sounds equal bilaterally. GASTROINTESTINAL: Abdomen soft, non-tender, nondistended. Hepatic and splenic margins not palpable. MUSCULOSKELETAL: Extremities without clubbing, cyanosis, or edema. No obvious deformities. 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
--- NOTE | 2018-05-05 15:25 | P.PNIM ---
Subjective Interval history: garbled speech. confused. Patient asked me to sell him methadone. Physical Exam Vital signs: Vital Signs 05/04/18 16:00 05/04/18 20:00 05/05/18 00:00 Temperature 100.6 F H 98 F 98.1 F Pulse Rate 94 H 94 H 100 H Respiratory Rate 20 17 19 Blood Pressure 142/94 H 118/73 123/65 Pulse Oximetry 98 99 98 05/05/18 04:00 05/05/18 08:00 05/05/18 12:00 Temperature 98.4 F 98.3 F 99.5 F Pulse Rate 89 92 H 84 Respiratory Rate 17 21 21 Blood Pressure 149/95 H 156/90 H 144/77 H Pulse Oximetry 97 94 L 93 L Intake & Output 05/04/18 05/05/18 05/05/18 18:59 06:59 18:59 Intake Total 1500 / 1500 200 / 200 200 / 200 Output Total 450 / 450 Balance 1500 / 1500 -250 / -250 200 / 200 Weight 85.2 kg Intake: IV 1500 / 1500 200 / 200 200 / 200 Neosynephrine Inj 40 MG In D5W 0 / 0 Inj 496 ML @ 40 MCG/MIN 30 mls/ hr IV.CONT TITRATE PRN Rx#: [id number] NS Inj 1,000 ML @ 100 mls/hr IV 1200 / 1200 .CONT .Q10H STEFFANIE Rx#:[id number] Prostaphlin Inj 2 GM In NS Inj 300 / 300 200 / 200 200 / 200 100 ML @ 200 mls/hr IV.SIG Q4H STEFFANIE Rx#:[id number] Output: Urine 450 / 450 Other: # Incontinent Voids 3 Date of Last Bowel Movement 04/30/18 Narrative: GENERAL: Patient confused with garbled speech. Moves all extremities. SKIN: Warm and dry. HEAD: Normocephalic. EYES: No scleral icterus. No injection or drainage. NECK: Supple, trachea midline. No JVD. CARDIOVASCULAR: Regular rate and rhythm without murmurs, gallops, or rubs. RESPIRATORY: Breath sounds equal bilaterally. No accessory muscle use. GASTROINTESTINAL: Abdomen soft, non-tender, nondistended. MUSCULOSKELETAL: No cyanosis, or edema. BACK: Nontender without obvious deformity. No CVA tenderness. - Urinary Catheter Management Condom Cath placed during this visit: no Results - Labs CBC & Chem 7: 05/05/18 08:25 05/05/18 08:25 Laboratory Results - last 24 hr 05/04/18 05/04/18 05/05/18 17:36 23:18 06:51 WBC RBC Hgb Hct MCV MCH MCHC RDW Plt Count MPV Prelim Diff (Auto) Neut % (Auto) Lymph % (Auto) [place] % (Auto) Eos % (Auto) Baso % (Auto) Neut # (Auto) Lymph # (Auto) [place] # (Auto) Eos # (Auto) Baso # (Auto) WBC Differential Seg Neuts % (Manual) Band Neuts % (Manual) Lymphocytes % (Manual) Monocytes % (Manual) Myelocytes % (Man) Abs Neuts (Manual) Differential Comment Toxic Granulation Dohle Bodies Platelet Estimate Platelet Morphology Ovalocytes Sodium Potassium Chloride Carbon Dioxide Anion Gap BUN Creatinine Estimated GFR POC Glucose 92 90 86 Random Glucose Calcium Phosphorus Magnesium 05/05/18 05/05/18 08:25 08:25 WBC 15.3 H RBC 3.42 L Hgb 10.0 L Hct 29.0 L MCV 84.6 MCH 29.2 MCHC 34.5 RDW 14.6 Plt Count 213 D MPV 9.0 Prelim Diff (Auto) Slide review pending Neut % (Auto) 78.0 H Lymph % (Auto) 8.2 L [place] % (Auto) 12.8 H Eos % (Auto) 0.6 Baso % (Auto) 0.4 Neut # (Auto) 12.0 H Lymph # (Auto) 1.3 [place] # (Auto) 2.0 H Eos # (Auto) 0.1 Baso # (Auto) 0.1 WBC Differential Manual diff final Seg Neuts % (Manual) 81 H Band Neuts % (Manual) 6 Lymphocytes % (Manual) 5 L Monocytes % (Manual) 3 Myelocytes % (Man) 5 H Abs Neuts (Manual) 14.1 H Differential Comment . Toxic Granulation 1+ H Dohle Bodies Present H Platelet Estimate Normal Platelet Morphology Normal Ovalocytes 1+ H Sodium 156 H* Potassium 3.1 L Chloride 122 H Carbon Dioxide 24.1 Anion Gap 10 BUN 26 H Creatinine 0.87 Estimated GFR Greater than 89 POC Glucose Random Glucose 86 Calcium 7.8 L Phosphorus 3.6 Magnesium 2.4 Microbiology 05/02/18 20:19 Blood - Peripheral Aerobic Blood Culture - Preliminary No growth in 3 days 05/02/18 20:19 Blood - Peripheral Anaerobic Blood Culture - Preliminary No growth in 3 days 05/02/18 20:14 Blood - Peripheral Aerobic Blood Culture - Final Staphylococcus aureus 05/02/18 20:14 Blood - Peripheral Anaerobic Blood Culture - Preliminary No growth in 3 days - Procedures AURELIA Assessment and Plan - Plan Acute metabolic encephalopathy Multifocal bilateral punctate infarcts, probable septic emboli Polysubstance abuse with withdrawal -Off Precedex. -MRI brain shows Multifocal bilateral punctate infarcts, suspicious for embolic disease. -Neurology consult for embolic bilateral infarcts. Dr. Mike. Continue aspirin -Watch closely for drug withdrawal -Supplement multivitamin thiamine -Watch closely for signs of meningitis/brain abscess from septic emboli -PT OOB RESP: Respiratory insufficiency Pneumonia/septic emboli -DuoNeb every 6 hours as needed -Sputum culture if available -CT chest shows bilateral infiltrates CV: Lactic acidosis NSTEMI Infective endocarditis -s/p Normal saline IV fluids 4L bolus -2d echo report prelim negative, cardiology consult Dr. Martines -AURELIA shows large mitral valve vegetation (05/03) -Continue aspirin carvedilol. Avoid statins at this time due to hep C -Elevated troponin may be secondary to coronary artery septic emboli GI: Hepatitis C -O/p f/u -Speech pathology consulted for speech evaluation and swallow evaluation : Renal insufficiency -Monitor renal function closely. Dc [place] catheter. Fluid resuscitation as above 05/05. Hypokalemia. Potassium 3.1. rePlace and monitor. 05/05. Hypernatremia. Sodium 146. Switch IV fluids and monitor. ID: Severe sepsis MSSA infective endocarditis -Oxacillin 05/01/18 -Blood urine and sputum cultures -Blood culture with GPC 4 staph aureus = 05/05. Patient unable to do MRI secondary to agitation. May need anesthesia for MRI. Appreciate ID assistance. HEME: -Monitor CBC, coags ENDO: -Electrolyte replacement per protocol -Sliding scale insulin if needed PROPH: -Bilateral lower extremity SCDs. Lovenox 40 mg sq daily LINES: -Utilize peripheral IVs, central line if needed Discharge Planning: - Self-pay Continues on IV antibiotics. difficult dc.
[2018-05-05 16:02] LABS: Anion Gap 13 meq/L (5-15); Blood Urea Nitrogen 28 mg/dL (7-18); Calcium 7.6 mg/dL (8.5-10.1); Carbon Dioxide 23.3 meq/L (21.0-32.0); Chloride 123 meq/L (98-107); Glomerular Filtration Rate Greater Than 89 mL/min (>89); Glucose,Random 85 mg/dL (74-106); Potassium 3.1 meq/L (3.5-5.1)
[2018-05-05 16:30] LABS: Sodium 159 meq/L (136-145)
[2018-05-05] MEDS: Enoxaparin Inj 40 MG/0.4 ML Syringe SQ SCH (17:23)
[2018-05-05] MEDS: Potassium Chloride Inj 40 MEQ in Dextrose 5% in Water Inj 1,000 ML IV.CONT SCH ×2 (22:21)
[2018-05-06] MEDS: Insulin NovoLOG Aspart Correctional Sugar Inj SQ SCH ×4 (01:33→18:38)
[2018-05-06] MEDS: Potassium Chloride Inj 40 MEQ in Dextrose 5% in Water Inj 1,000 ML IV.CONT SCH ×4 (06:07→11:22)
[2018-05-06 07:14] LABS: Baso % (Auto) 0.2 % (0.0-2.0); Eos # (Auto) 0.1 th/mm3 (0.0-0.4); Eos % (Auto) 0.9 % (0.0-4.0); Hematocrit 27.6 % (39.0-51.0); Hemoglobin 9.5 gm/dL (13.0-17.0); Lymph # (Auto) 1.2 th/mm3 (1.0-4.8); Mean Corpuscular HGB Conc 34.4 % (32.0-36.0); Mean Corpuscular Hemoglobin 28.9 pg (27.0-34.0); Mean Corpuscular Volume 84.1 fL (80.0-100.0); Mean Platelet Volume 8.9 fL (7.0-11.0); Mono # (Auto) 1.4 th/mm3 (0.0-0.9); Mono % (Auto) 11.1 % (0.0-8.0); Neut # (Auto) 9.6 th/mm3 (1.8-7.7); Neut % (Auto) 77.8 % (16.0-70.0); Platelet Count 217 th/mm3 (150-450); Red Blood Count 3.28 mil/mm3 (4.50-5.90); Red Cell Distribution Width 14.3 % (11.6-17.2); White Blood Count 12.4 th/mm3 (4.0-11.0)
[2018-05-06 07:56] LABS: Albumin 1.9 g/dL (3.4-5.0); Carbon Dioxide 23.6 meq/L (21.0-32.0); Magnesium 2.6 mg/dL (1.5-2.5); Phosphorus 4.2 mg/dL (2.5-4.9); Potassium 3.3 meq/L (3.5-5.1)
[2018-05-06 08:02] LABS: Calcium 7.2 mg/dL (8.5-10.1)
[2018-05-06] MEDS ORDERED: Haloperidol Inj 5 MG/ML Ampul IV.PUSH PRN (08:19)
--- NOTE | 2018-05-06 08:25 | P.PNIM ---
Subjective Interval history: Patient confused, disoriented, disorganized speech as before. He thinks that the stethoscope is a dagger. Physical Exam Vital signs: Vital Signs 05/05/18 12:00 05/05/18 16:00 05/05/18 20:00 Temperature 99.5 F 97.5 F L 98.9 F Pulse Rate 84 78 69 Respiratory Rate 21 21 20 Blood Pressure 144/77 H 143/85 H 160/92 H Pulse Oximetry 93 L 96 96 05/06/18 00:00 05/06/18 04:00 Temperature 99.2 F 99.4 F Pulse Rate 77 77 Respiratory Rate 20 20 Blood Pressure 154/81 H 154/81 H Pulse Oximetry 92 L 92 L Intake & Output 05/05/18 05/06/18 05/06/18 18:59 06:59 18:59 Intake Total 1360 / 1360 2030 / 2031 Output Total 200 / 200 Balance 1360 / 1360 183 / 183 Intake: IV 1000 / 1000 193 / 1931 KCl Inj 40 MEQ In D5W Inj 1,000 681 / 681 ML @ 85 mls/hr IV.CONT .Q12H STEFFANIE Rx#:[id number] 1/2 Normal Saline Inj 1,000 ML 500 / 500 @ 125 mls/hr IV.CONT .Q8H STEFFANIE Rx#:[id number] D5W Inj 250 ML @ Wide Open IV. 250 / 250 SIG BOLUS ONE Rx#:[id number] Prostaphlin Inj 2 GM In NS Inj 300 / 300 400 / 400 100 ML @ 200 mls/hr IV.SIG Q4H STEFFANIE Rx#:[id number] KCl 10 mEq Premix Inj 10 meq In 200 / 200 100 / 100 100 ml @ 100 mls/hr IV.SIG Q1H STEFFANIE Rx#:[id number] 1/2 Normal Saline Inj 500 ML @ 500 / 500 Wide Open IV.SIG BOLUS ONE Rx#: [id number] Oral 360 / 360 100 / 100 Output: Urine 200 / 200 Other: # Voids 3 1 Date of Last Bowel Movement 04/30/18 # Bowel Movements 1 2 Narrative: GENERAL: Patient confused with garbled speech. Moves all extremities. Exam unchanged. SKIN: Warm and dry. HEAD: Normocephalic. EYES: No scleral icterus. No injection or drainage. NECK: Supple, trachea midline. No JVD. CARDIOVASCULAR: Regular rate and rhythm without murmurs, gallops, or rubs. RESPIRATORY: Breath sounds equal bilaterally. No accessory muscle use. GASTROINTESTINAL: Abdomen soft, non-tender, nondistended. MUSCULOSKELETAL: No cyanosis, or edema. BACK: Nontender without obvious deformity. No CVA tenderness. - Urinary Catheter Management Condom Cath placed during this visit: no Results - Labs CBC & Chem 7: 05/06/18 06:53 05/06/18 06:53 Laboratory Results - last 24 hr 05/05/18 05/05/18 05/05/18 08:25 08:25 15:00 WBC 15.3 H RBC 3.42 L Hgb 10.0 L Hct 29.0 L MCV 84.6 MCH 29.2 MCHC 34.5 RDW 14.6 Plt Count 213 D MPV 9.0 Prelim Diff (Auto) Slide review pending Neut % (Auto) 78.0 H Lymph % (Auto) 8.2 L [place] % (Auto) 12.8 H Eos % (Auto) 0.6 Baso % (Auto) 0.4 Neut # (Auto) 12.0 H Lymph # (Auto) 1.3 [place] # (Auto) 2.0 H Eos # (Auto) 0.1 Baso # (Auto) 0.1 WBC Differential Manual diff final Seg Neuts % (Manual) 81 H Band Neuts % (Manual) 6 Lymphocytes % (Manual) 5 L Monocytes % (Manual) 3 Myelocytes % (Man) 5 H Abs Neuts (Manual) 14.1 H Differential Comment . Toxic Granulation 1+ H Dohle Bodies Present H Platelet Estimate Normal Platelet Morphology Normal Ovalocytes 1+ H Sodium 156 H* 159 H* Potassium 3.1 L 3.1 L Chloride 122 H 123 H Carbon Dioxide 24.1 23.3 Anion Gap 10 13 BUN 26 H 28 H Creatinine 0.87 0.89 Estimated GFR Greater than 89 Greater than 89 POC Glucose Random Glucose 86 85 Calcium 7.8 L 7.6 L Phosphorus 3.6 Magnesium 2.4 Albumin 05/05/18 05/05/18 05/06/18 17:20 19:28 06:53 WBC 12.4 H RBC 3.28 L Hgb 9.5 L Hct 27.6 L MCV 84.1 MCH 28.9 MCHC 34.4 RDW 14.3 Plt Count 217 MPV 8.9 Prelim Diff (Auto) Slide review pending Neut % (Auto) 77.8 H Lymph % (Auto) 10.0 [place] % (Auto) 11.1 H Eos % (Auto) 0.9 Baso % (Auto) 0.2 Neut # (Auto) 9.6 H Lymph # (Auto) 1.2 [place] # (Auto) 1.4 H Eos # (Auto) 0.1 Baso # (Auto) 0.0 WBC Differential Seg Neuts % (Manual) Band Neuts % (Manual) Lymphocytes % (Manual) Monocytes % (Manual) Myelocytes % (Man) Abs Neuts (Manual) Differential Comment . Toxic Granulation Dohle Bodies Platelet Estimate Platelet Morphology Ovalocytes Sodium 156 H* Potassium Chloride Carbon Dioxide Anion Gap BUN Creatinine Estimated GFR POC Glucose 80 Random Glucose Calcium Phosphorus Magnesium Albumin 05/06/18 05/06/18 06:53 06:53 WBC RBC Hgb Hct MCV MCH MCHC RDW Plt Count MPV Prelim Diff (Auto) Neut % (Auto) Lymph % (Auto) [place] % (Auto) Eos % (Auto) Baso % (Auto) Neut # (Auto) Lymph # (Auto) [place] # (Auto) Eos # (Auto) Baso # (Auto) WBC Differential Seg Neuts % (Manual) Band Neuts % (Manual) Lymphocytes % (Manual) Monocytes % (Manual) Myelocytes % (Man) Abs Neuts (Manual) Differential Comment Toxic Granulation Dohle Bodies Platelet Estimate Platelet Morphology Ovalocytes Sodium 157 H* 157 H* Potassium 3.3 L Chloride 123 H Carbon Dioxide 23.6 Anion Gap 10 BUN 29 H Creatinine 0.99 Estimated GFR 85 L POC Glucose Random Glucose 116 H Calcium 7.2 L* Phosphorus 4.2 Magnesium 2.6 H Albumin 1.9 L Microbiology 05/02/18 20:19 Blood - Peripheral Aerobic Blood Culture - Preliminary No growth in 3 days 05/02/18 20:19 Blood - Peripheral Anaerobic Blood Culture - Preliminary No growth in 3 days 05/02/18 20:14 Blood - Peripheral Aerobic Blood Culture - Final Staphylococcus aureus 05/02/18 20:14 Blood - Peripheral Anaerobic Blood Culture - Preliminary No growth in 3 days - Procedures AURELIA Assessment and Plan - Plan Acute metabolic encephalopathy Multifocal bilateral punctate infarcts, probable septic emboli Polysubstance abuse with withdrawal -Off Precedex. -MRI brain shows Multifocal bilateral punctate infarcts, suspicious for embolic disease. -Neurology consult for embolic bilateral infarcts. Dr. Mike. Continue aspirin -Watch closely for drug withdrawal -Supplement multivitamin thiamine -Watch closely for signs of meningitis/brain abscess from septic emboli -PT OOB RESP: Respiratory insufficiency Pneumonia/septic emboli -DuoNeb every 6 hours as needed -Sputum culture if available -CT chest shows bilateral infiltrates CV: Lactic acidosis NSTEMI Infective endocarditis -s/p Normal saline IV fluids 4L bolus -2d echo report prelim negative, cardiology consult Dr. Martines -AURELIA shows large mitral valve vegetation (05/03) -Continue aspirin carvedilol. Avoid statins at this time due to hep C -Elevated troponin may be secondary to coronary artery septic emboli GI: Hepatitis C -O/p f/u -Speech pathology consulted for speech evaluation and swallow evaluation : Renal insufficiency -Monitor renal function closely. Dc [place] catheter. Fluid resuscitation as above Hypokalemia. =05/06. Potassium 3.3. Continue replacement. Hypernatremia. =05/06 sodium 157 despite D5 infusion. My thought is that this could be central secondary to diabetes insipidus from septic brain emboli. Order urine sodium, serum and urine osmolality. Will consult nephrology. ID: Severe sepsis MSSA infective endocarditis -Oxacillin 05/01/18 -Blood urine and sputum cultures -Blood culture with GPC 4 staph aureus = 05/05. Patient unable to do MRI secondary to agitation. May need anesthesia for MRI. Appreciate ID assistance. HEME: -Monitor CBC, coags ENDO: -Electrolyte replacement per protocol -Sliding scale insulin if needed PROPH: -Bilateral lower extremity SCDs. Lovenox 40 mg sq daily LINES: -Utilize peripheral IVs, central line if needed Discharge Planning: - Self-pay Continues on IV antibiotics. difficult dc.
[2018-05-06 08:31] LABS: Dohle Bodies Present; Lymphocytes 10 % (9-44); Metamyelocytes 5 % (0-1); Monocytes 4 % (0-8); Myelocytes 3 % (0-0)
[2018-05-06 08:32] LABS: Platelet Estimate Normal (Normal); Platelet Morphology Normal (Normal)
[2018-05-06] MEDS: Senna/Docusate Sodium 8.6/50 MG Tablet PO SCH ×2 (09:15→20:33)
[2018-05-06] MEDS: LORazepam 1 MG Tablet PO PRN ×2 (09:15→12:57)
--- NOTE | 2018-05-06 14:31 | XR ---
EXAM DATE: 05/06/2018 2:26 PM EDT AGE/SEX: 38 years / Male INDICATIONS: Bronchitis CLINICAL DATA: This is the patient's subsequent encounter. Patient reports that signs and symptoms h ave been present for 1 week and indicates a pain score of 0/10. MEDICAL/SURGICAL HISTORY: None. None. COMPAR[place]: [facility] [place] 05[place]03/[place]. . FINDINGS: There is mild pulmonary interstitial prominence throughout the lungs. There is a small amount of airs pace disease right lower lobe could be a small area of pneumonia. Heart and mediastinum unremarkable. The bones are unremarkable. CONCLUSION: Subtle infiltrate right lung base could be small area of pneumonia. New since 05/03/2018 Electronically signed by: Ambrosio Kinney MD 05/06/2018 2:30 PM EDT
[2018-05-06 14:35] LABS: ABG Base Excess -0.2 mmol/L (-2-2); ABG PCO2 32 mmHg (38-42); ABG PO2 51 mmHg (61-120)
[2018-05-06] MEDS ORDERED: Etomidate Inj 40 MG/20 ML Vial IV.PUSH ONE ×2 (15:15→15:26)
[2018-05-06] MEDS ORDERED: Potassium Chloride 25 MEQ Effervescent Tablet PO PRN (15:21)
[2018-05-06] MEDS ORDERED: Potassium Chlor 40 mEq Premix 40 MEQ/100 ML PIGGYBACK IV.SIG PRN ×2 (15:21)
[2018-05-06] MEDS ORDERED: Sodium Phosphate Inj 30 MMOL in Sodium Chlor 0.9% Inj 250 ML IV.SIG PRN (15:21)
[2018-05-06] MEDS ORDERED: Potassium Phosphate 500 MG Soluble Tablet PO PRN ×2 (15:21)
[2018-05-06] MEDS ORDERED: Magnesium Sulfate Inj 2 GM in Sodium Chlor 0.9% Inj 96 ML IV.SIG PRN (15:21)
[2018-05-06] MEDS ORDERED: Magnesium Oxide 400 MG Tablet PO PRN (15:21)
[2018-05-06] MEDS ORDERED: Potassium Phosphate Inj 30 MMOL in Sodium Chlor 0.9% Inj 250 ML IV.SIG PRN (15:21)
[2018-05-06] MEDS ORDERED: Potassium Chlor 20 mEq Premix 20 MEQ/100 ML PIGGYBACK IV.SIG PRN ×2 (15:21)
[2018-05-06] MEDS ORDERED: Magnesium Sulfate Inj 4 GM in Sodium Chlor 0.9% Inj 92 ML IV.SIG PRN (15:21)
[2018-05-06] MEDS ORDERED: niCARdipine Inj 25 MG in Sodium Chlor 0.9% Inj 240 ML IV.CONT PRN (16:00)
--- NOTE | 2018-05-06 16:00 | P.PNCC ---
Subjective Subjective Remarks/Hospital Course: Patient is 38-year-old male with history of IV drug use, prev endocarditis, Hepatitis C, who presented to the emergency department via [facility] from [employer] for acute psychosis and altered mental status. CT of the head done at [employer] was negative for acute findings. Patient was very confused and delirious at [facility] ED. His last IV drug use of heroin was 5 days ago. Urine drug screen is pending at this time. ER workup showed multiple abnormalities, pertinent ones being a white count of 16.1 with left shift, troponin 3.24, lactic acid 3.1, CPK of 592, potassium of 3.1. Received 3 L of normal saline in the ED and was given Zosyn and vancomycin. I evaluated the patient in the emergency department. He is confused delirious oriented to person only. He is very tachycardic and dry. Patient appears very critical and septic. With IV drug use patient most likely has recurrence of infective endocarditis. Cardiology consult as well as ID consult had been requested. I will give additional 1 L fluid bolus and continue vancomycin and Zosyn. I will place on Precedex. 2D echo is pending at this time 05/01: Patient remains critically ill confused encephalopathy but slightly better speech. MRI of the brain is pending at this time. CT of the abdomen pelvis showed splenic infarct and probable inflammatory changes of the left perinephric space. CT chest shows bilateral infiltrates. WBC count is elevated 20.4 today. On broad-spectrum antibiotics per ID. Echo pending. MRI brain shows Multifocal bilateral punctate infarcts, suspicious for embolic disease. Blood cx positive 11/29 GPC 05/02: Patient intermittently agitated overnight, Precedex closely started. Currently, speech is improved. Echo official report pending but preliminary no vegetation seen. Will schedule AURELIA. Blood cultures growing staph aureus. Antibiotics narrowed to oxacillin by ID 05/03: Drowsy, easily arousable. remains orally intubated on mech ventilation. Subjective 05/06: Reconsulted due to acute altered desaturation on general medical floor. Currently 9% nonrebreather and speaking nonsensically. Patient is currently restrained to the bed with soft restraints. Decision made to intubate. Phone number in chart [phone] is not the mother. No other family available/ second tissue. Attempted to call his cell phone without results. Objective Vital Signs / I&O: Vital Signs 05/05/18 16:00 05/05/18 20:00 05/06/18 00:00 Temperature 97.5 F L 98.9 F 99.2 F Pulse Rate 78 69 77 Respiratory Rate 21 20 20 Blood Pressure 143/85 H 160/92 H 154/81 H Pulse Oximetry 96 96 92 L 05/06/18 04:00 05/06/18 08:00 Temperature 99.4 F 99.1 F Pulse Rate 77 67 Respiratory Rate 20 20 Blood Pressure 154/81 H 156/84 H Pulse Oximetry 92 L 95 Intake & Output 05/05/18 05/06/18 05/06/18 18:59 06:59 18:59 Intake Total 1360 / 1360 2031 / 2031 539 / 539 Output Total 200 / 200 Balance 1360 / 1360 1831 / 1831 539 / 539 Intake: IV 1000 / 1000 1931 / 1931 539 / 539 KCl Inj 40 MEQ In D5W Inj 1,000 681 / 681 339 / 339 ML @ 85 mls/hr IV.CONT .Q12H STEFFANIE Rx#:[id number] 1/2 Normal Saline Inj 1,000 ML 500 / 500 @ 125 mls/hr IV.CONT .Q8H STEFFANIE Rx#:[id number] D5W Inj 250 ML @ Wide Open IV. 250 / 250 SIG BOLUS ONE Rx#:[id number] Prostaphlin Inj 2 GM In NS Inj 300 / 300 400 / 400 200 / 200 100 ML @ 200 mls/hr IV.SIG Q4H STEFFANIE Rx#:[id number] KCl 10 mEq Premix Inj 10 meq In 200 / 200 100 / 100 100 ml @ 100 mls/hr IV.SIG Q1H STEFFANIE Rx#:[id number] 1/2 Normal Saline Inj 500 ML @ 500 / 500 Wide Open IV.SIG BOLUS ONE Rx#: [id number] Oral 360 / 360 100 / 100 Output: Urine 200 / 200 Other: # Voids 3 1 Date of Last Bowel Movement 04/30/18 04/30/18 # Bowel Movements 1 2 Result Diagrams: 05/06/18 06:53 05/06/18 06:53 Other Results: Microbiology 05/02/18 20:19 Blood - Peripheral Aerobic Blood Culture - Preliminary No growth in 4 days 05/02/18 20:19 Blood - Peripheral Anaerobic Blood Culture - Preliminary No growth in 4 days 05/02/18 20:14 Blood - Peripheral Aerobic Blood Culture - Final Staphylococcus aureus 05/02/18 20:14 Blood - Peripheral Anaerobic Blood Culture - Preliminary No growth in 4 days 04/30/18 09:00 Blood - Peripheral Aerobic Blood Culture - Final Staphylococcus aureus 04/30/18 09:00 Blood - Peripheral Anaerobic Blood Culture - Final Staphylococcus aureus 04/30/18 09:08 Blood - Peripheral Aerobic Blood Culture - Final Staphylococcus aureus 04/30/18 09:08 Blood - Peripheral Anaerobic Blood Culture - Final Staphylococcus aureus 04/30/18 15:10 Clean Catch Urine Urine Culture - Final No growth in 48 hours Imaging: Chest CT 04/30/18 00:00 CONCLUSION: 1. Parenchymal process bilaterally most likely inflammatory and pneumonia. Abdomen/Pelvis CT 04/30/18 08:48 CONCLUSION: 1. 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 2. Haziness in the anterior margins of the perinephric space at the junction of the spleen possibly inflammatory process of uncertain etiology. Chest X-Ray 04/30/18 08:48 CONCLUSION: Negative examination. Head CT 04/30/18 16:58 CONCLUSION: Chronic sinusitis and possible nasal polyposis and otherwise brain CT is otherwise unremarkable. Head MRI 05/01/18 00:00 CONCLUSION: 1. Multifocal bilateral punctate infarcts, suspicious for embolic disease. 2. No midline shift or mass effect. Chest X-Ray 05/03/18 06:00 CONCLUSION: Mild left upper lobe airspace consolidation corresponding with the abnormality documented on prior chest CT from 3 days ago. No other acute finding is identified. Chest X-Ray 05/06/18 00:00 CONCLUSION: Subtle infiltrate right lung base could be small area of pneumonia. New since 05/03/2018 Objective Remarks: GENERAL: 38-year-old male who is ill-appearing currently orotracheally intubated SKIN: Warm/dry. Multiple tattoos. Multiple skin petechia with stigmata of septic emboli/[place]ay lesions HEAD: Atraumatic. Normocephalic. EYES: Pupils equal and round. No scleral icterus. Conjunctival splinter hemorrhages present ENT: No nasal bleeding or discharge. Mucous membranes dry. NECK: Trachea midline. No JVD. CARDIOVASCULAR: Tachycardic rate and rhythm. S1, S2 no S4. 1/6 systolic murmur appreciated. RESPIRATORY: No accessory muscle use. Clear to auscultation. Breath sounds equal bilaterally. GASTROINTESTINAL: Abdomen soft, tenderness in epigastric region, nondistended. Hepatic and splenic margins not palpable. MUSCULOSKELETAL: No obvious deformities. No clubbing. NEUROLOGICAL: Currently intubated. Positive gag and cough. For intubation moves all 4 extremities but not to command. Assessment and Plan - Assessment and Plan Plan: NEURO/Psych: Acute metabolic encephalopathy Multifocal bilateral frontal/parietal occipital and cerebellar punctate infarcts , likely septic emboli Polysubstance abuse with withdrawal -Currently on propofol/fentanyl drips for sedation/analgesia while intubated -Goal of RA SS -2 -Daily sedation vacation -MRI brain shows Multifocal bilateral punctate infarcts, suspicious for embolic disease. -Neurology consult for embolic bilateral infarcts. Dr. Mike. Continue aspirin [address] brain -Supplement multivitamin thiamine and folic acid daily -Watch closely for signs of meningitis/brain abscess from septic emboli CT brain/ MRI lumbar spine ordered RESP: Acute respiratory failure Pneumonia/septic emboli -PRVC ventilation -Albuterol/ipratropium aerosols every 6 hours with albuterol aerosols every 2 hours as needed for dyspnea -Ventilator bundle -Spontaneous breathing trials when clinically indicated -Follow postintubation chest x-ray and ABG -Sputum culture if available ID request -CT chest 04/30 shows bilateral infiltrates CV: NSTEMI Mitral valve infective endocarditis Hypertension -2d echo report prelim negative, cardiology consult Dr. Martines -(05/03) AURELIA with large mobile density on the anterior leaflet of mitral valve consistent with endocarditis (3cm x 1cm) -Continue aspirin 81 mg daily and carvedilol 3.25 mg twice daily. -As needed nicardipine drip -Avoid statins at this time due to hep C -Elevated troponin may be secondary to coronary artery septic emboli GI: Hepatitis C -IV famotidine 20 mg twice daily. -Tube feeds of vital 1.5 goal 50 cc an hour -Docusate sodium/senna 1 tablet twice daily for bowel regimen -Speech pathology consulted for speech evaluation and swallow evaluation Renal//FEN: Renal insufficiency Hypernatremia Hypopotassemia -Monitor renal function closely. -Magaña catheter. -Accurate I's and O's -Replace electrolytes as clinically indicated per ICU electrolyte protocol -Free water 200 cc every 4 hours ID: Severe sepsis Mitral valve infective endocarditis -Antibiotics with vancomycin and Cefepime, ID Dr. Lucio-changed to Oxacillin 05/01/18 -Blood urine and sputum cultures -Blood culture with GPC 4 staph aureus -Recheck sputum culture 05/06 HEME: Leukocytosis Normocytic anemia -Monitor CBC, coags ENDO: -Electrolyte replacement per protocol -Sliding scale insulin with aspart insulin low regimen every 6 hours PROPH: -Bilateral lower extremity SCDs. famotidine. Currently holding enoxaparin 40 mg sq daily pending CT brain LINES: -Utilize peripheral IVs, central line if needed 35 minutes critical care time Code Status: Full code Discussed Condition With: Patient. Mother's phone number incorrect on OCT. No family available. Care plan discussed and all questions answered.
--- NOTE | 2018-05-06 16:11 | P.PNID ---
Subjective Remarks: Pt remains very confused febrile, low grade <101 Tranferred to ICU for resp distress on 100 NRB and about to be int'd CXR showed new area of PNA RLL AURELIA with large mobile density on the anterior leaflet of mitral valve consistent with endocarditis (3cm x 1cm) Pt Antibiotics: ocxacillin Past Medical History: IVDU Allergies/Adverse Reactions: Allergies No Known Allergies Allergy (Unknown, Uncoded 07/13/17 00:28) Objective Vital Signs 05/05/18 20:00 05/06/18 00:00 05/06/18 04:00 Temperature 98.9 F 99.2 F 99.4 F Pulse Rate 69 77 77 Respiratory Rate 20 20 20 Blood Pressure 160/92 H 154/81 H 154/81 H Pulse Oximetry 96 92 L 92 L 05/06/18 08:00 05/06/18 15:49 Temperature 99.1 F Pulse Rate 67 Respiratory Rate 20 16 Blood Pressure 156/84 H Pulse Oximetry 95 100 Intake & Output 05/05/18 05/06/18 05/06/18 18:59 06:59 18:59 Intake Total 1360 / 1360 2031 / 2031 539 / 539 Output Total 200 / 200 Balance 1360 / 1360 1831 / 1831 539 / 539 Intake: IV 1000 / 1000 1931 / 1931 539 / 539 KCl Inj 40 MEQ In D5W Inj 1,000 681 / 681 339 / 339 ML @ 85 mls/hr IV.CONT .Q12H STEFFANIE Rx#:[id number] 1/2 Normal Saline Inj 1,000 ML 500 / 500 @ 125 mls/hr IV.CONT .Q8H STEFFANIE Rx#:[id number] D5W Inj 250 ML @ Wide Open IV. 250 / 250 SIG BOLUS ONE Rx#:[id number] Prostaphlin Inj 2 GM In NS Inj 300 / 300 400 / 400 200 / 200 100 ML @ 200 mls/hr IV.SIG Q4H STEFFANIE Rx#:[id number] KCl 10 mEq Premix Inj 10 meq In 200 / 200 100 / 100 100 ml @ 100 mls/hr IV.SIG Q1H STEFFANIE Rx#:[id number] 1/2 Normal Saline Inj 500 ML @ 500 / 500 Wide Open IV.SIG BOLUS ONE Rx#: [id number] Oral 360 / 360 100 / 100 Output: Urine 200 / 200 Other: # Voids 3 1 Date of Last Bowel Movement 04/30/18 04/30/18 # Bowel Movements 1 2 05/02/18 20:19 Blood - Peripheral Aerobic Blood Culture - Preliminary No growth in 4 days 05/02/18 20:19 Blood - Peripheral Anaerobic Blood Culture - Preliminary No growth in 4 days 05/02/18 20:14 Blood - Peripheral Aerobic Blood Culture - Final Staphylococcus aureus 05/02/18 20:14 Blood - Peripheral Anaerobic Blood Culture - Preliminary No growth in 4 days Lab - Hematology Results 05/05/18 05/06/18 08:25 06:53 WBC 15.3 H 12.4 H RBC 3.42 L 3.28 L Hgb 10.0 L 9.5 L Hct 29.0 L 27.6 L MCV 84.6 84.1 MCH 29.2 28.9 MCHC 34.5 34.4 RDW 14.6 14.3 Plt Count 213 D 217 MPV 9.0 8.9 Prelim Diff (Auto) Slide review pending Slide review pending Neut % (Auto) 78.0 H 77.8 H Lymph % (Auto) 8.2 L 10.0 [place] % (Auto) 12.8 H 11.1 H Eos % (Auto) 0.6 0.9 Baso % (Auto) 0.4 0.2 Neut # (Auto) 12.0 H 9.6 H Lymph # (Auto) 1.3 1.2 Childress # (Auto) 2.0 H 1.4 H Eos # (Auto) 0.1 0.1 Baso # (Auto) 0.1 0.0 WBC Differential Manual diff final Manual diff final Seg Neuts % (Manual) 81 H 77 H Band Neuts % (Manual) 6 1 Lymphocytes % (Manual) 5 L 10 Monocytes % (Manual) 3 4 Metamyelocytes % (Man) 5 H Myelocytes % (Man) 5 H 3 H Abs Neuts (Manual) 14.1 H 10.7 H Differential Comment . . Toxic Granulation 1+ H Dohle Bodies Present H Present H Platelet Estimate Normal Normal Platelet Morphology Normal Normal Ovalocytes 1+ H Lab - Chemistry Results 05/04/18 05/04/18 05/05/18 17:36 23:18 06:51 Sodium Potassium Chloride Carbon Dioxide Anion Gap BUN Creatinine Estimated GFR POC Glucose 92 90 86 Random Glucose Osmolality Calcium Phosphorus Magnesium Albumin 05/05/18 05/05/18 05/05/18 08:25 15:00 17:20 Sodium 156 H* 159 H* Potassium 3.1 L 3.1 L Chloride 122 H 123 H Carbon Dioxide 24.1 23.3 Anion Gap 10 13 BUN 26 H 28 H Creatinine 0.87 0.89 Estimated GFR Greater than 89 Greater than 89 POC Glucose 80 Random Glucose 86 85 Osmolality Calcium 7.8 L 7.6 L Phosphorus 3.6 Magnesium 2.4 Albumin 05/05/18 05/06/18 05/06/18 19:28 06:53 06:53 Sodium 156 H* 157 H* 157 H* Potassium 3.3 L Chloride 123 H Carbon Dioxide 23.6 Anion Gap 10 BUN 29 H Creatinine 0.99 Estimated GFR 85 L POC Glucose Random Glucose 116 H Osmolality Calcium 7.2 L* Phosphorus 4.2 Magnesium 2.6 H Albumin 1.9 L 05/06/18 05/06/18 06:53 14:43 Sodium Potassium Chloride Carbon Dioxide Anion Gap BUN Creatinine Estimated GFR POC Glucose 95 Random Glucose Osmolality 321 H Calcium Phosphorus Magnesium Albumin Imaging: ITS Impressions Chest CT 04/30/18 00:00 CONCLUSION: 1. Parenchymal process bilaterally most likely inflammatory and pneumonia. Abdomen/Pelvis CT 04/30/18 08:48 CONCLUSION: 1. 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 2. Haziness in the anterior margins of the perinephric space at the junction of the spleen possibly inflammatory process of uncertain etiology. Head CT 04/30/18 16:58 CONCLUSION: Chronic sinusitis and possible nasal polyposis and otherwise brain CT is otherwise unremarkable. Head MRI 05/01/18 00:00 CONCLUSION: 1. Multifocal bilateral punctate infarcts, suspicious for embolic disease. 2. No midline shift or mass effect. Chest X-Ray 05/06/18 00:00 CONCLUSION: Subtle infiltrate right lung base could be small area of pneumonia. New since 05/03/2018 Physical Exam: GENERAL: NAD SKIN: Warm and dry. extensive petechial and Jan[place]ay lesions HEAD: Atraumatic. Normocephalic. EYES: Pupils equal and round. No scleral icterus. No injection or drainage. numerous conjubnctival hmrgs ENT: No nasal bleeding or discharge. Mucous membranes pink and moist. NECK: Trachea midline. No JVD. CARDIOVASCULAR: Regular rate and rhythm. RESPIRATORY: No accessory muscle use. Clear to auscultation. Breath sounds equal bilaterally. GASTROINTESTINAL: Abdomen soft, non-tender, nondistended. Hepatic and splenic margins not palpable. MUSCULOSKELETAL: Extremities without clubbing, cyanosis, or edema. No obvious deformities. NEUROLOGICAL: agitated not follows commands less garbled speech, incoherent moving all extremeties vigorously PSYCHIATRIC: very confused Assessment and Plan - Plan mitral valve endocariditis with a 3 cm vegetations Multiple embolic strokes Elevated troponin brain septic emboli Pt has difficulty speaking which appear new (per 06/2017 record he had clear speech) and per RN got worse thru the shift CT head w/o c negative @ 2300 BRENDA, mild Back pain in the settings of large vegetation on mitral valve Resp distress - cont oxacilin monitor creatinine, LFTs, CBC - MRI T, L spine when feasible - repeat blood clx - will chk sputum clx dw Jona Cooper RN
[2018-05-06] MEDS: fentaNYL 10 mcg/mL Premix Drip 2,500 MCG/250 ML BAG IV.SIG PRN (16:15)
[2018-05-06] MEDS: Propofol 1000 mg/100 ml Inj 1,000 MG/100 ML BOTTLE IV.CONT PRN ×2 (16:15→20:31)
[2018-05-06] MEDS: Oral Hygiene Kit OROPHARYNG SCH (16:32)
--- NOTE | 2018-05-06 16:32 | XR ---
EXAM DATE: 05/06/2018 4:26 PM EDT AGE/SEX: 38 years / Male INDICATIONS: E-T tube placement. CLINICAL DATA: This is the patient's subsequent encounter. Patient reports that signs and symptoms h ave been present for 1 week and indicates a pain score of Nonresponsive. MEDICAL/SURGICAL HISTORY: None. None. COMPARISON: C, CHEST 1V SINGLE AP, 05/06/2018. . FINDINGS: The endotracheal tube and nasogastric both good position. There is mild pulmonary vascular congestion . No focal infiltrate. No pneumothorax. CONCLUSION: ET tube in good position. Mild perihilar vascular congestion. Electronically signed by: Ambrosio Kinney MD 05/06/2018 4:31 PM EDT
[2018-05-06 16:45] LABS: ABG Base Excess -1.4 mmol/L (-2-2); ABG PCO2 39 mmHg (38-42); ABG PO2 178 mmHG (61-120)
[2018-05-06 17:27] LABS: Calcium 7.7 mg/dL (8.5-10.1); Carbon Dioxide 25.2 meq/L (21.0-32.0); Potassium 3.5 meq/L (3.5-5.1)
--- NOTE | 2018-05-06 17:33 | P.CONNP ---
History of Present Illness Service: Nephrology Consult date: 05/06/18 Requesting Physician: Marco Antonio Swift Reason for Consult: Hypernatremia Primary Care Provider: No Primary Care Physician Family Provider: No Primary Care Physician Chief Complaint: AMS History of Present Illness: Patient is 38-year-old male with history of IV drug use, previous endocarditis, Hepatitis C, who presented to the emergency department via [facility] from [place] for acute psychosis and altered mental status. Patient was very confused and delirious at [facility] ED. His last IV drug use of heroin was 5 days ago. Urine drug screen is pending at this time. He was in intensive care unit and then transferred, he again became confused and critical care is reconsulted, I was consulted due to hypernatremia, patient has suspicious of septic emboli in the brain. 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 - Medical History Medical History: Medical History (Last Reviewed 05/04/18 @ 09:08 by Isabel Benson, [employer]) Heroin abuse Hepatitis C virus - Tobacco History Second Hand Smoke Exposure: No Tobacco Use In Past 30 Days: No Smoking Status: Cognitive impairment Tobacco Type: Cigarettes - Alcohol History How Often Do You Have a Drink Containing Alcohol: Unable to Obtain - Substance Use History Substance History: Active Abuse - Substance Use Type Heroin Status: Active Route Used: Intravenously Frequency: weekly; used prior to admission on 04-30-18 Reason for Use: Feels Good - Travel History Recent Travel in the [place] Within the Last 8 Weeks: No Recent Travel Out of the Country Within the Last 8 Weeks: No - Immunization History Tetanus Immunization: Unable to Assess Hx Influenza Vaccine This Season: Unable to Assess Medications and Allergies Active Medications: Active Medications Acetaminophen (Tylenol Liq) 650 mg PO Q6H PRN PRN Reason: FEVER Al Hydroxide/Mg Hydroxide (Milk Of Magnesia Liq) 30 ml PO Q12H PRN PRN Reason: Mild Constipation Albuterol (Albuterol Neb (Prn)) 2.5 mg NEB Q2HR NEB PRN PRN Reason: DYSPNEA Albuterol (Duoneb Neb (Alison)) 1 ampul NEB Q6HR NEB ALISON Last Admin: 05/06/18 16:56 Dose: 1 ampul Artificial Tears (Genteal Severe Dry Eye Relief 0.3% Opth Gel) 1 drops EACH EYE BID ALISON Aspirin (Aspirin Chew) 81 mg PO DAILY [facility] Last Admin: 05/06/18 09:15 Dose: 81 mg Bisacodyl (Dulcolax Supp) 10 mg RECTAL DAILY PRN PRN Reason: SEVERE CONSITIPATION Carvedilol (Coreg) 3.125 mg PO BID [facility] Last Admin: 05/06/18 09:16 Dose: 3.125 mg Chlorhexidine Gluconate (Peridex 0.12% Oral Kit) 15 ml OROPHARYNG BID@0800, 2000 [facility] Dextrose (D50w Vial) 50 ml IV.PUSH UNSCH PRN PRN Reason: PER HYPOGLYCEMIA PROTOCOL Flumazenil (Romazecon Inj) 0.2 mg IV.PUSH Q1M PRN PRN Reason: OVERSEDATION Glucagon (Glucagon Inj) 1 mg OTHER PRN PRN PRN Reason: for Hypoglycemia Protocol Sodium Chloride (Ns Inj) 1,000 mls @ 0 mls/hr IV.SIG BOLUS ALISON Sodium Chloride (Ns Inj) 1,000 mls @ 0 mls/hr IV.SIG BOLUS ALISON Sodium Chloride (Ns Inj) 1,000 mls @ 0 mls/hr IV.SIG BOLUS ALISON Oxacillin Sodium 2 gm/ Sodium (Chloride) 100 mls @ 200 mls/hr IV.SIG Q4H [facility] Last Infusion: 05/06/18 13:30 Dose: Infused Fentanyl (Fentanyl 10 Mcg/Ml Premix Drip) 2,500 mcg in 250 mls @ 5 mls/hr IV.SIG TITRATE PRN; Protocol PRN Reason: Per Protocol Propofol (Diprivan 1000 Mg/100 Ml Inj) 1,000 mg in 100 mls @ 2.556 mls/hr IV.CONT TITRATE PRN; Protocol PRN Reason: Per Protocol Multivitamins 10 ml/ Thiamine HCl 100 mg/ Folic Acid 1 mg/Sodium Chloride 511.2 mls @ 125 mls/hr IV.SIG Q24H [facility] Stop: 05/08/18 21:06 Magnesium Sulfate Inj 4 gm/ (Sodium Chloride) 100 mls @ 50 mls/hr IV.SIG UNSCH PRN PRN Reason: For Magnesium 0.9 - 1.1 mg/dL Magnesium Sulfate Inj 2 gm/ (Sodium Chloride) 100 mls @ 50 mls/hr IV.SIG UNSCH PRN PRN Reason: For Magnesium 1.2 - 1.6 mg/dL Potassium Chloride (Kcl 40 Meq Premix Inj) 40 meq in 100 mls @ 25 mls/hr IV.SIG Q2H PRN PRN Reason: For Potassium 2.8 - 3.2 mEq/L Potassium Chloride (Kcl 20 Meq Premix Inj) 20 meq in 100 mls @ 50 mls/hr IV.SIG Q2H PRN PRN Reason: For Potassium 3.3 - 3.5 mEq/L Potassium Chloride (Kcl 40 Meq Premix Inj) 40 meq in 100 mls @ 25 mls/hr IV.SIG UNSCH PRN PRN Reason: For Potassium 3.3 - 3.5 mEq/L Potassium Phosphate 30 mmol/ (Sodium Chloride) 260 mls @ 42 mls/hr IV.SIG UNSCH PRN PRN Reason: SEE LABEL COMMENTS Sodium Phosphate 30 mmol/ (Sodium Chloride) 260 mls @ 42 mls/hr IV.SIG UNSCH PRN PRN Reason: For Phosphorus < 2.5 mg/dL Potassium Chloride (Kcl 20 Meq Premix Inj) 20 meq in 100 mls @ 50 mls/hr IV.SIG Q2H PRN PRN Reason: For Potassium 2.8 - 3.2 mEq/L Nicardipine HCl 25 mg/ Sodium (Chloride) 250 mls @ 50 mls/hr IV.CONT TITRATE PRN; Protocol PRN Reason: Per Protocol Last Admin: 05/06/18 16:29 Dose: 5 mg/hr, 50 mls/hr Insulin Aspart (Novolog Insulin Correctional Sugar Inj) 0 unit SQ Q6HR ALISON; Protocol Last Admin: 05/06/18 12:12 Dose: Not Given Lactulose (Lactulose Liq) 30 ml PO DAILY PRN PRN Reason: SEVERE CONSITIPATION Magnesium Oxide (Mag-Ox) 800 mg PO UNSCH PRN PRN Reason: For Magnesium 1.2 - 1.6 mg/dL Miscellaneous Information ([facility] Ordered Lab Info) 1 each OTHER ONCE ALISON Potassium Bicarb/Potassium Chloride (K-Lyte Cl Eff) 50 meq PO UNSCH PRN PRN Reason: For Potassium 3.3 - 3.5 mEq/L Potassium Phosphate (K-Phos Original) 2,000 mg PO Q4H PRN PRN Reason: Phosphorus Less Than 2.5 mg/dL Potassium Phosphate (K-Phos Original) 2,000 mg PO UNSCH PRN PRN Reason: SEE LABEL COMMENTS Senna/Docusate Sodium (Angle-Colace) 1 tab PO BID [facility] Last Admin: 05/06/18 09:15 Dose: 1 tab Sennosides (Senokot) 17.2 mg PO Q12H PRN PRN Reason: Moderate Constipation Sodium Chloride (Ns Flush) 2 ml IV.FLUSH PRN PRN PRN Reason: FLUSH AFTER USING IV ACCESS Sterile Water (Free Water) 200 ml G-TUBE Q4HR [facility] Allergies Allergy/AdvReac Type Severity Reaction Status Date / Time No Known Allergies Allergy Unknown Uncoded 07/13/17 00:28 Exam Vital signs: Vital Signs 05/05/18 20:00 05/06/18 00:00 05/06/18 04:00 Temperature 98.9 F 99.2 F 99.4 F Pulse Rate 69 77 77 Respiratory Rate 20 20 20 Blood Pressure 160/92 H 154/81 H 154/81 H Pulse Oximetry 96 92 L 92 L 05/06/18 08:00 05/06/18 15:49 05/06/18 16:57 Temperature 99.1 F Pulse Rate 67 79 Respiratory Rate 20 16 18 Blood Pressure 156/84 H Pulse Oximetry 95 100 Intake & Output 05/05/18 05/06/18 05/06/18 18:59 06:59 18:59 Intake Total 1360 / 1360 2031 / 2031 539 / 539 Output Total 200 / 200 Balance 1360 / 1360 1831 / 1831 539 / 539 Intake: IV 1000 / 1000 1931 / 1931 539 / 539 KCl Inj 40 MEQ In D5W Inj 1,000 681 / 681 339 / 339 ML @ 85 mls/hr IV.CONT .Q12H [facility] Rx#:[id number] 1/2 Normal Saline Inj 1,000 ML 500 / 500 @ 125 mls/hr IV.CONT .Q8H ALISON Rx#:[id number] D5W Inj 250 ML @ Wide Open IV. 250 / 250 SIG BOLUS ONE Rx#:[id number] Prostaphlin Inj 2 GM In NS Inj 300 / 300 400 / 400 200 / 200 100 ML @ 200 mls/hr IV.SIG Q4H [facility] Rx#:[id number] KCl 10 mEq Premix Inj 10 meq In 200 / 200 100 / 100 100 ml @ 100 mls/hr IV.SIG Q1H ALISON Rx#:[id number] 1/2 Normal Saline Inj 500 ML @ 500 / 500 Wide Open IV.SIG BOLUS ONE Rx#: [id number] Oral 360 / 360 100 / 100 Output: Urine 200 / 200 Other: # Voids 3 1 Date of Last Bowel Movement 04/30/18 04/30/18 # Bowel Movements 1 2 Narrative: General: Sick appearing male Neck: Supple Chest and lungs: Diminished air entry at the bases CVS: S1-S2 regular rate and rhythm Abdomen: Soft nondistended bowel sounds present Extremities: No edema [employer]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 Results - Lab Results 05/06/18 06:53 05/06/18 16:55 Most recent lab results ABG pH 7.39 (7.380-7.420) 05/06/18 16:40 ABG pCO2 39 mmHg (38-42) 05/06/18 16:40 ABG pO2 178 mmHG (61-120) H 05/06/18 16:40 ABG HCO3 23 mmol/L (22-26) 05/06/18 16:40 Calcium 7.2 mg/dL (8.5-10.1) L* 05/06/18 06:53 Phosphorus 4.2 mg/dL (2.5-4.9) 05/06/18 06:53 Magnesium 2.6 mg/dL (1.5-2.5) H 05/06/18 06:53 Transesophageal echocardiogram mitral valve large mobile density on the anterior leaflet consistent with endocarditis (3cm x 1cm) Microbiology 05/02/18 20:19 Aerobic Blood Culture - Preliminary Blood - Peripheral No growth in 4 days Anaerobic Blood Culture - Preliminary No growth in 4 days 05/02/18 20:14 Aerobic Blood Culture - Final Blood - Peripheral Staphylococcus aureus Anaerobic Blood Culture - Preliminary No growth in 4 days Assessment and Plan - Assessment (1) Hypernatremia Code(s): E87.0 - Hyperosmolality and hypernatremia Status: Acute (2) Altered mental status Code(s): R41.82 - Altered mental status, unspecified Status: Acute (3) Endocarditis Code(s): I38 - Endocarditis, valve unspecified Status: Acute (4) Sepsis Code(s): A41.9 - Sepsis, unspecified organism Status: Acute (5) Hyponatremia Code(s): E87.1 - Hypo-osmolality and hyponatremia Status: Acute - Plan Patient likely has diabetes insipidus to underlying infection and septic emboli to brain DDAVP has been ordered Monitor intake and output Check urine and serum osmolality Follow BMP (4) Sepsis Qualifiers: Sepsis type: sepsis due to unspecified organism Qualified Code(s): A41.9 - Sepsis, unspecified organism
--- NOTE | 2018-05-06 18:21 | CT ---
EXAM DATE: 05/06/2018 6:16 PM EDT AGE/SEX: 38 years / Male INDICATIONS: Altered mental status, septic emboli. CLINICAL DATA: This is the patient's subsequent encounter. Patient reports that signs and symptoms h ave been present for 4 - 6 days and indicates a pain score of Nonresponsive. MEDICAL/SURGICAL HISTORY: Hepatitis C. heroin abuse None. RADIATION DOSE: 46.97 CTDI (mGy) [place] [facility]. . TECHNIQUE: CT of the head without contrast. Using automated exposure control and adjustment of the mA and/or kV according to patient size, radiation dose was kept as low as reasonably achievable to ob tain optimal diagnostic quality images. DICOM format image data is available electronically for revi ew and comparison. FINDINGS: Cerebrum: The ventricles are normal for age. No evidence of midline shift, mass lesion, hemorrhage or acute infarction. No extraaxial fluid collections are seen. Posterior Fossa: The cerebellum and brainstem are intact. The 4th ventricle is midline. The cerebe llopontine angle is unremarkable. Extracranial: The visualized portion of the orbits is intact. Mucosal thickening is noted in the eth moidal air cells, sphenoid sinus and both maxillary sinuses. Skull: The calvaria is intact. No evidence of skull fracture. CONCLUSION: 1. No acute hemorrhage or mass effect. 2. The small bilateral known punctate infarcts seen on the MRI are not distinctly visualized. 3. Mucosal thickening in the ethmoidal air cells, sphenoid sinus and both maxillary sinuses. Electronically signed by: Juan R Barry MD 05/06/2018 6:19 PM EDT
[2018-05-06 18:33] LABS: Bacteria,Urine Rare /hpf; Bilirubin,Urine Negative (Negative); Clarity,Urine Hazy (Clear); Color,Urine Yellow (Yellw/Straw); Glucose,Urine (UA) 50 mg/dL (Negative); Leukocyte Esterase,Urine Small (Negative); Mucus,Urine Few /lpf (Occasional); Nitrite,Urine Negative (Negative); Specific Gravity,Urine 1.021 (1.002-1.035); Squamous Epithelial Cell,Urine <1 /hpf (0-5)
[2018-05-06] MEDS ORDERED: Gadobutrol PF 10 MMOL/10 ML Vial (for RAD) IV.SIG ONE (18:55)
--- NOTE | 2018-05-06 19:39 | MR ---
EXAM DATE: 05/06/2018 7:25 PM EDT AGE/SEX: 38 years / Male INDICATIONS: Possible septic emboli in the brain. Please evaluate for abscess or osteomyelitis. CLINICAL DATA: This is the patient's initial encounter. Patient reports that signs and symptoms have been present for 4 - 6 days and indicates a pain score of 3/10. MEDICAL/SURGICAL HISTORY: Hepatitis C. IVDA. Endocarditis. . Cardiac cath. COMPARISON: No prior exams available for comparison. TECHNIQUE: Multiplanar, multisequence MRI examination of the lumbar spine was performed without and with 9cc ml Gadavist (gadobutrol) contrast as a single exam dose. FINDINGS: The most caudal-appearing lumbar vertebra is numbered as L5. Vertebra: Homogeneous signal. Normal alignment. Discs: Well preserved and hydrated. Conus: Normal level and configuration. Post Contrast: There is an abnormal fluid collection in the posterior subcutaneous fat which measure s up to approximately 10 cm in greatest caudocranial dimension by 1.7 cm in AP diameter. On the axial images this measures up to close to 10 cm. After contrast administration there is diffuse surroundin g enhancement. T12-L1: The thecal sac has a normal diameter. No evidence of disc bulge or protrusion. The neural foramina are patent bilaterally. L1-L2: The thecal sac has a normal diameter. No evidence of disc bulge or protrusion. The neural foramina are patent bilaterally. L2-L3: The thecal sac has a normal diameter. No evidence of disc bulge or protrusion. The neural foramina are patent bilaterally. L3-L4: The thecal sac has a normal diameter. No evidence of disc bulge or protrusion. The neural foramina are patent bilaterally. L4-L5: The thecal sac has a normal diameter. No evidence of disc bulge or protrusion. The neural foramina are patent bilaterally. L5-S1: The thecal sac has a normal diameter. No evidence of disc bulge or protrusion. The neural foramina are patent bilaterally. CONCLUSION: 1. Large posterior subcutaneous fluid collection with enhancement. This could represent a seroma or abscess. 2. No evidence of osteomyelitis or discitis. Electronically signed by: Juan R Barry MD 05/06/2018 7:37 PM EDT
--- NOTE | 2018-05-06 20:03 | MR ---
EXAM DATE: 05/06/2018 7:03 PM EDT AGE/SEX: 38 years / Male INDICATIONS: Multiple possible septic emboli in the brain seen on MRI. Please evaluate for osteomyeli tis or abscess.. CLINICAL DATA: This is the patient's initial encounter. Patient reports that signs and symptoms have been present for 4 - 6 days and indicates a pain score of 4/10. MEDICAL/SURGICAL HISTORY: Hepatitis C. IVDA, Endocarditis. . Cardiac cath. COMPARISON: No prior exams available for comparison. TECHNIQUE: Multiplanar, multisequence MRI of the thoracic spine was performed without and with 9cc m l Gadavist (gadobutrol) contrast as a single exam dose. FINDINGS: Vertebrae: Normal vertebral body height. Homogeneous marrow signal. Alignment: Normal. Discs: Well preserved and hydrated Cord: Normal position and configuration. Post Contrast: No abnormal areas of enhancement are seen in the cord, dural or paraspinal regions. T1-T2: The thecal sac has a normal diameter. No evidence of disc bulge or protrusion. T2-T3: The thecal sac has a normal diameter. No evidence of disc bulge or protrusion. T3-T4: The thecal sac has a normal diameter. No evidence of disc bulge or protrusion. T4-T5: The thecal sac has a normal diameter. No evidence of disc bulge or protrusion. T5-T6: The thecal sac has a normal diameter. No evidence of disc bulge or protrusion. T6-T7: The thecal sac has a normal diameter. No evidence of disc bulge or protrusion. T7-T8: The thecal sac has a normal diameter. No evidence of disc bulge or protrusion. T8-T9: . T9-T10: The thecal sac has a normal diameter. No evidence of disc bulge or protrusion. T10-T11: The thecal sac has a normal diameter. No evidence of disc bulge or protrusion. T11-T12: The thecal sac has a normal diameter. No evidence of disc bulge or protrusion. T12-L1: The thecal sac has a normal diameter. No evidence of disc bulge or protrusion. CONCLUSION: 1. Negative thoracic MRI with no evidence of osteomyelitis or discitis. 2. Please see lumbar spine MRI for further details on findings in this region. Electronically signed by: Juan R Barry MD 05/06/2018 8:02 PM EDT
[2018-05-06] MEDS: Multivitamin Inj 10 ML, Thiamine Inj 100 MG, Folic Acid Inj 1 MG in Sodium Chlor 0.9% I... IV.SIG SCH (20:07)
[2018-05-06] MEDS: Chlorhexidine 0.12% Oral Kit 15 ML UDC OROPHARYNG SCH (20:09)
[2018-05-06] MEDS: Desmopressin Inj 4 MCG/ML Ampul IV.PUSH SCH (20:34)
[2018-05-06] MEDS: Hypromellose 0.3% Opth Gel 10 GM Bottle EACH EYE SCH (20:35)
[2018-05-06] MEDS ORDERED: FOSPHENYTOIN IV.SIG ONE (22:05)
[2018-05-06] MEDS ORDERED: SODIUM CHLOR IV.SIG ONE (22:05)
[2018-05-06] MEDS ORDERED: Calcium Gluconate Inj 1 GM in Dextrose 5% in Water Inj 100 ML IV.SIG ONE ×2 (22:27)
[2018-05-07] MEDS: Insulin NovoLOG Aspart Correctional Sugar Inj SQ SCH ×4 (00:37→17:47)
[2018-05-07] MEDS: Oral Hygiene Kit OROPHARYNG SCH ×4 (00:37→15:33)
[2018-05-07] MEDS: Propofol 1000 mg/100 ml Inj 1,000 MG/100 ML BOTTLE IV.CONT PRN ×4 (00:37→20:58)
[2018-05-07 05:25] LABS: Baso % (Auto) 0.2 % (0.0-2.0); Eos # (Auto) 0.3 th/mm3 (0.0-0.4); Eos % (Auto) 2.2 % (0.0-4.0); Hematocrit 26.8 % (39.0-51.0); Lymph # (Auto) 1.4 th/mm3 (1.0-4.8); Lymph % (Auto) 10.8 % (9.0-44.0); Mean Corpuscular HGB Conc 33.5 % (32.0-36.0); Mean Corpuscular Hemoglobin 29.1 pg (27.0-34.0); Mean Corpuscular Volume 86.6 fL (80.0-100.0); Mean Platelet Volume 8.8 fL (7.0-11.0); Mono # (Auto) 0.9 th/mm3 (0.0-0.9); Mono % (Auto) 6.6 % (0.0-8.0); Neut # (Auto) 10.5 th/mm3 (1.8-7.7); Neut % (Auto) 80.2 % (16.0-70.0); Platelet Count 214 th/mm3 (150-450); Red Cell Distribution Width 15.2 % (11.6-17.2); White Blood Count 13.1 th/mm3 (4.0-11.0)
[2018-05-07 05:31] LABS: Activated Partial Thrombo Time 27.5 sec (24.3-30.1); INR 1.2 Ratio; Prothrombin Time 12.6 sec (9.8-11.6)
[2018-05-07 06:02] LABS: Albumin 1.7 g/dL (3.4-5.0); Calcium 7.2 mg/dL (8.5-10.1); Carbon Dioxide 22.9 meq/L (21.0-32.0); Magnesium 2.4 mg/dL (1.5-2.5); Phenytoin (Dilantin) 7.6 mcg/mL (10.0-20.0); Phosphorus 5.6 mg/dL (2.5-4.9); Potassium 3.5 meq/L (3.5-5.1); Total Protein 5.9 g/dL (6.4-8.2)
[2018-05-07] MEDS: Fosphenytoin Inj 100 MGPE in Sodium Chlor 0.9% Inj 50 ML IV.SIG SCH ×2 (08:28→15:32)
[2018-05-07] MEDS: Senna/Docusate Sodium 8.6/50 MG Tablet PO SCH ×2 (08:29→21:52)
[2018-05-07] MEDS: Desmopressin Inj 4 MCG/ML Ampul IV.PUSH SCH (08:29)
[2018-05-07] MEDS: Chlorhexidine 0.12% Oral Kit 15 ML UDC OROPHARYNG SCH ×2 (08:33→20:58)
[2018-05-07] MEDS: Hypromellose 0.3% Opth Gel 10 GM Bottle EACH EYE SCH ×2 (08:36→21:52)
[2018-05-07 08:50] LABS: Eosinophils 2 % (0-4); Lymphocytes 6 % (9-44); Monocytes 3 % (0-8); Myelocytes 2 % (0-0); Tallied Nucleated RBC 1 (0-0)
[2018-05-07 08:51] LABS: Platelet Estimate Normal (Normal); Platelet Morphology Normal (Normal)
--- NOTE | 2018-05-07 13:13 | MG ---
cc: Camden Urena MD, PhD TEST NUMBER [id number]. TECHNIQUE: A 17-channel EEG. DESCRIPTION: The background rhythm reveals slowing in the delta frequency. There is somewhat of a burst suppression pattern as well. No lateralizing features. No definite epileptiform features present. INTERPRETATION: Abnormal study consistent with severe encephalopathy. Camden Urena MD, PhD [facility]/[place] , 12:58 PM , 01:02 PM
--- NOTE | 2018-05-07 13:14 | P.PNCC ---
Subjective Subjective Remarks/Hospital Course: Patient is 38-year-old male with history of IV drug use, prev endocarditis, Hepatitis C, who presented to the emergency department via [facility] from [place] for acute psychosis and altered mental status. CT of the head done at [place] was negative for acute findings. Patient was very confused and delirious at [facility] ED. His last IV drug use of heroin was 5 days ago. Urine drug screen is pending at this time. ER workup showed multiple abnormalities, pertinent ones being a white count of 16.1 with left shift, troponin 3.24, lactic acid 3.1, CPK of 592, potassium of 3.1. Received 3 L of normal saline in the ED and was given Zosyn and vancomycin. I evaluated the patient in the emergency department. He is confused delirious oriented to person only. He is very tachycardic and dry. Patient appears very critical and septic. With IV drug use patient most likely has recurrence of infective endocarditis. Cardiology consult as well as ID consult had been requested. I will give additional 1 L fluid bolus and continue vancomycin and Zosyn. I will place on Precedex. 2D echo is pending at this time 05/01: Patient remains critically ill confused encephalopathy but slightly better speech. MRI of the brain is pending at this time. CT of the abdomen pelvis showed splenic infarct and probable inflammatory changes of the left perinephric space. CT chest shows bilateral infiltrates. WBC count is elevated 20.4 today. On broad-spectrum antibiotics per ID. Echo pending. MRI brain shows Multifocal bilateral punctate infarcts, suspicious for embolic disease. Blood cx positive 11/29 GPC 05/02: Patient intermittently agitated overnight, Precedex closely started. Currently, speech is improved. Echo official report pending but preliminary no vegetation seen. Will schedule AURELIA. Blood cultures growing staph aureus. Antibiotics narrowed to oxacillin by ID 05/03: Drowsy, easily arousable. remains orally intubated on mech ventilation. Subjective 05/06: Reconsulted due to acute altered desaturation on general medical floor. Currently 9% nonrebreather and speaking nonsensically. Patient is currently restrained to the bed with soft restraints. Decision made to intubate. Phone number in chart [phone] is not the mother. No other family available/ second tissue. Attempted to call his cell phone without results. 05/07: Remains intubated sedated very critical. WBC count increasing indicating worsening sepsis. Patient remains encephalopathy. Lumbar spine MRI showed large posterior subcutaneous fluid collection with enhancement-seroma or abscess. No evidence of osteomyelitis or discitis. IR to drain today with further fluid studies. There was questionable seizures overnight EEG preliminary no seizures. Continue fosphenytoin for now Objective Vital Signs / I&O: Vital Signs 05/06/18 15:49 05/06/18 16:57 05/06/18 20:00 Temperature Pulse Rate 79 56 L Respiratory Rate 16 18 Blood Pressure Pulse Oximetry 100 05/06/18 20:13 05/06/18 20:14 05/06/18 20:17 Temperature Pulse Rate 61 55 L Respiratory Rate 16 16 16 Blood Pressure Pulse Oximetry 100 100 05/06/18 20:30 05/06/18 21:00 05/06/18 21:30 Temperature Pulse Rate 96 H 68 70 Respiratory Rate 21 16 16 Blood Pressure 149/82 H 131/72 117/57 L Pulse Oximetry 99 100 100 05/06/18 22:00 05/06/18 22:30 05/06/18 23:00 Temperature Pulse Rate 69 64 70 Respiratory Rate 16 16 14 Blood Pressure 113/55 L 116/58 L 126/69 Pulse Oximetry 98 100 100 05/06/18 23:30 05/07/18 00:00 05/07/18 00:30 Temperature 99.8 F H Pulse Rate 63 76 67 Respiratory Rate 16 16 16 Blood Pressure 123/64 100/54 L 99/50 L Pulse Oximetry 100 100 100 05/07/18 00:38 05/07/18 01:00 05/07/18 01:30 Temperature Pulse Rate 62 59 L Respiratory Rate 16 16 16 Blood Pressure 107/59 L 109/62 Pulse Oximetry 100 100 97 05/07/18 02:00 05/07/18 02:30 05/07/18 03:00 Temperature Pulse Rate 58 L 57 L 56 L Respiratory Rate 16 16 16 Blood Pressure 111/65 114/69 107/61 Pulse Oximetry 97 97 98 05/07/18 03:30 05/07/18 04:00 05/07/18 04:30 Temperature 97.9 F Pulse Rate 56 L 60 65 Respiratory Rate 16 16 16 Blood Pressure 109/63 110/71 109/62 Pulse Oximetry 100 97 97 05/07/18 05:00 05/07/18 05:04 05/07/18 05:30 Temperature Pulse Rate 72 72 69 Respiratory Rate 16 16 16 Blood Pressure 104/64 Pulse Oximetry 97 96 05/07/18 06:00 05/07/18 06:30 05/07/18 07:00 Temperature Pulse Rate 66 64 61 Respiratory Rate 16 16 16 Blood Pressure 100/59 L 99/54 L 99/54 L Pulse Oximetry 98 99 99 05/07/18 07:30 05/07/18 08:00 05/07/18 08:30 Temperature 97.7 F Pulse Rate 60 59 L 55 L Respiratory Rate 16 16 16 Blood Pressure 99/57 L 102/64 103/67 Pulse Oximetry 100 100 100 05/07/18 08:50 05/07/18 09:00 05/07/18 09:30 Temperature Pulse Rate 57 L 57 L 59 L Respiratory Rate 16 16 16 Blood Pressure 98/60 L 100/62 Pulse Oximetry 100 100 100 05/07/18 10:00 05/07/18 10:30 05/07/18 11:43 Temperature Pulse Rate 75 61 Respiratory Rate 17 16 16 Blood Pressure 101/61 103/67 Pulse Oximetry 98 96 98 Intake & Output 05/06/18 05/07/18 05/07/18 18:59 06:59 18:59 Intake Total 539 / 539 2007.8 / 252 / 252 Output Total 350 / 350 Balance 539 / 539 1658.8 / 1658.8 252 / 252 Weight 90.5 kg Intake: IV 539 / 539 1496.8 / 1496.8 252 / 252 KCl Inj 40 MEQ In D5W Inj 1,000 339 / 339 ML @ 85 mls/hr IV.CONT .Q12H [facility] Rx#:[id number] Diprivan 1000 mg/100 ml Inj 1, 300 / 300 100 / 100 000 mg In 100 ml @ 5 MCG/KG/MIN 2.556 mls/hr IV.CONT TITRATE PRN Rx#:[id number] Calcium Gluconate Inj 1 GM In 110 / 110 D5W Inj 100 ML @ 110 mls/hr IV. SIG ONCE ONE Rx#:[id number] Cerebyx Inj 100 MGPE In NS Inj 52 / 52 50 ML @ 208 mls/hr IV.SIG Q8H [facility] Rx#:[id number] Cerebyx Inj 1,280 MGPE In NS 125.6 / 125.6 Inj 100 ML @ 251.2 mls/hr IV. SIG ONCE ONE Rx#:[id number] MVI-12 Inj 10 ML Thiamine Inj 511.2 / 511.2 100 MG Folvite Inj 1 MG In NS Inj 500 ML @ 125 mls/hr IV.SIG Q24H [facility] Rx#:[id number] Prostaphlin Inj 2 GM In NS Inj 200 / 200 200 / 200 100 / 100 100 ML @ 200 mls/hr IV.SIG Q4H [facility] Rx#:[id number] fentaNYL 10 mcg/mL Premix Drip 250 / 250 2,500 mcg In 250 ml @ 50 MCG/HR 5 mls/hr IV.SIG TITRATE PRN Rx #:[id number] Oral 0 / 0 Tube Feeding 112 / 112 Water Bolus Amount 400 / 400 Output: Urine 350 / 350 Other: Date of Last Bowel Movement 04/30/18 # Bowel Movements 0 Result Diagrams: 05/07/18 05:08 05/07/18 05:08 Objective Remarks: GENERAL: 38-year-old male who is ill-appearing currently orotracheally intubated SKIN: Warm/dry. Multiple tattoos. Multiple skin petechia with stigmata of septic emboli/[place] lesions HEAD: Atraumatic. Normocephalic. EYES: Pupils equal and round. No scleral icterus. Conjunctival splinter hemorrhages present ENT: No nasal bleeding or discharge. Mucous membranes dry. Orotracheally intubated NECK: Trachea midline. No JVD. CARDIOVASCULAR: Tachycardic rate and rhythm. S1, S2 no S4. 1/6 systolic murmur appreciated. RESPIRATORY: No accessory muscle use. Clear to auscultation. Breath sounds equal bilaterally. GASTROINTESTINAL: Abdomen soft, tenderness in epigastric region, nondistended. Hepatic and splenic margins not palpable. MUSCULOSKELETAL: No obvious deformities. No clubbing. NEUROLOGICAL: Currently intubated. Positive gag and cough. Moves all 4 extremities but not to command. Remains encephalopathic Assessment and Plan - Assessment and Plan Plan: NEURO/Psych: Acute metabolic encephalopathy Multifocal bilateral frontal/parietal occipital and cerebellar punctate infarcts , likely septic emboli Polysubstance abuse with withdrawal Lumbar fluid collection/abscess -Currently on propofol/fentanyl drips for sedation/analgesia while intubated -Goal of RASS -2. Daily sedation vacation -MRI brain shows Multifocal bilateral punctate infarcts, suspicious for embolic disease. -Neurology consulted for embolic bilateral infarcts. Dr. Mike. Continue aspirin 81 mg daily -Supplement multivitamin thiamine and folic acid daily -Watch closely for signs of meningitis/brain abscess from septic emboli -Developed possible seizures overnight started on fosphenytoin -EEG official report pending -IR to drain lumbar fluid collection RESP: Acute respiratory failure Pneumonia/septic emboli -PRVC ventilation. Albuterol/ipratropium aerosols every 6 hours with albuterol aerosols every 2 hours as needed for dyspnea -Ventilator bundle -Spontaneous breathing trials when clinically indicated, mental status will not permit extubation -Sputum culture. CT chest 04/30 shows bilateral infiltrates CV: NSTEMI Mitral valve infective endocarditis Hypertension -2d echo report prelim negative, cardiology Dr. Martines -(05/03) AURELIA with large mobile density on the anterior leaflet of mitral valve consistent with endocarditis (3cm x 1cm) -Continue aspirin 81 mg daily and carvedilol 3.25 mg twice daily. -As needed nicardipine drip -Avoid statins at this time due to hep C -Elevated troponin may be secondary to coronary artery septic emboli -Maintenance IV fluid at 84 mL/h GI: Hepatitis C -IV famotidine 20 mg twice daily. -Tube feeds of vital 1.5 goal 50 cc an hour -Docusate sodium/senna 1 tablet twice daily for bowel regimen -Speech pathology consulted for speech evaluation and swallow evaluation Renal//FEN: Acute kidney injury Hypernatremia Hypopotassemia -Monitor renal function closely. -Maga[place] catheter. -Accurate I's and O's -Replace electrolytes as clinically indicated per ICU electrolyte protocol -Free water 200 cc every 4 hours ID: Severe sepsis Mitral valve infective endocarditis -Antibiotics with Oxacillin per ID -Blood urine and sputum cultures -Blood culture with GPC 4 staph aureus -Recheck sputum culture 05/06 HEME: Leukocytosis Normocytic anemia -Monitor CBC, coags ENDO: -Electrolyte replacement per protocol -Sliding scale insulin with aspart insulin low regimen every 6 hours PROPH: -Bilateral lower extremity SCDs. famotidine. Resume enoxaparin 40 mg sq daily LINES: -Utilize peripheral IVs, central line if needed 35 minutes critical care time
--- NOTE | 2018-05-07 13:16 | P.DIET ---
Nutritional Evaluation Type of nutrition evaluation: initial Nutrition consult regarding: Tube Feeding Objective - Diagnosis ESTEMI, sepsis, dehydration, hypokalemia - Objective % IBW: 134 (IBW = 148) Body Weight Used for Calculations: IBW (67.3 kg) Energy Needs - Lower Range (kCal/kg): 30 Energy Needs - Upper Range (kCal/kg): 35 Lower Limit kCal/kg (kCals): 2,018 Upper Limit kCal/kg (kCals): 2,356 Lower Limit Protein Factor (Grams per Kg): 1.2 Upper Limit Protein Factor (Grams per Kg): 1.5 Lower Protein Needs (Protein): 81 Upper Protein Needs (Protein): 101 Dietitian Reviewed in Medical Record: Curent medications, Intake & Output, Labs , Medical history, Tube feeding Assessment Assessment: Pt is vented/sedated and needs TFing to meet needs. Current order is for Vital 1.5 @ 50 mls/hr and he is currently receiving 20 mls/hr. Some additional kcals are being provided by propofol 10/mls hr for 264 kcals. To meet needs with Vital 1.5, recommend goal rate of 60 mls/hr to provide 2160 kcals, 97 gms protein and 1100 mls of free water. Recommendations: Vital 1.5 @ 60 mls/hr goal Dietitian to Monitor: Lab values, Intake & Output, Tube feeding tolerance, Weight change, Medical course
--- NOTE | 2018-05-07 14:39 | P.PNNP ---
Subjective Interval history: On ventilator Physical Exam Vital signs: Vital Signs 05/06/18 15:49 05/06/18 16:57 05/06/18 20:00 Temperature Pulse Rate 79 56 L Respiratory Rate 16 18 Blood Pressure Pulse Oximetry 100 05/06/18 20:13 05/06/18 20:14 05/06/18 20:17 Temperature Pulse Rate 61 55 L Respiratory Rate 16 16 16 Blood Pressure Pulse Oximetry 100 100 05/06/18 20:30 05/06/18 21:00 05/06/18 21:30 Temperature Pulse Rate 96 H 68 70 Respiratory Rate 21 16 16 Blood Pressure 149/82 H 131/72 117/57 L Pulse Oximetry 99 100 100 05/06/18 22:00 05/06/18 22:30 05/06/18 23:00 Temperature Pulse Rate 69 64 70 Respiratory Rate 16 16 14 Blood Pressure 113/55 L 116/58 L 126/69 Pulse Oximetry 98 100 100 05/06/18 23:30 05/07/18 00:00 05/07/18 00:30 Temperature 99.8 F H Pulse Rate 63 76 67 Respiratory Rate 16 16 16 Blood Pressure 123/64 100/54 L 99/50 L Pulse Oximetry 100 100 100 05/07/18 00:38 05/07/18 01:00 05/07/18 01:30 Temperature Pulse Rate 62 59 L Respiratory Rate 16 16 16 Blood Pressure 107/59 L 109/62 Pulse Oximetry 100 100 97 05/07/18 02:00 05/07/18 02:30 05/07/18 03:00 Temperature Pulse Rate 58 L 57 L 56 L Respiratory Rate 16 16 16 Blood Pressure 111/65 114/69 107/61 Pulse Oximetry 97 97 98 05/07/18 03:30 05/07/18 04:00 05/07/18 04:30 Temperature 97.9 F Pulse Rate 56 L 60 65 Respiratory Rate 16 16 16 Blood Pressure 109/63 110/71 109/62 Pulse Oximetry 100 97 97 05/07/18 05:00 05/07/18 05:04 05/07/18 05:30 Temperature Pulse Rate 72 72 69 Respiratory Rate 16 16 16 Blood Pressure 104/64 Pulse Oximetry 97 96 05/07/18 06:00 05/07/18 06:30 05/07/18 07:00 Temperature Pulse Rate 66 64 61 Respiratory Rate 16 16 16 Blood Pressure 100/59 L 99/54 L 99/54 L Pulse Oximetry 98 99 99 05/07/18 07:30 05/07/18 08:00 05/07/18 08:30 Temperature 97.7 F Pulse Rate 60 59 L 55 L Respiratory Rate 16 16 16 Blood Pressure 99/57 L 102/64 103/67 Pulse Oximetry 100 100 100 05/07/18 08:50 05/07/18 09:00 05/07/18 09:30 Temperature Pulse Rate 57 L 57 L 59 L Respiratory Rate 16 16 16 Blood Pressure 98/60 L 100/62 Pulse Oximetry 100 100 100 05/07/18 10:00 05/07/18 10:30 05/07/18 11:00 Temperature Pulse Rate 75 61 61 Respiratory Rate 17 16 16 Blood Pressure 101/61 103/67 98/60 L Pulse Oximetry 98 96 97 05/07/18 11:30 05/07/18 11:43 05/07/18 12:00 Temperature 98.5 F Pulse Rate 57 L 60 Respiratory Rate 16 16 16 Blood Pressure 101/63 103/66 Pulse Oximetry 97 98 96 05/07/18 12:30 05/07/18 13:00 05/07/18 13:30 Temperature Pulse Rate 63 59 L 57 L Respiratory Rate 16 16 16 Blood Pressure 104/66 108/69 115/77 Pulse Oximetry 95 95 94 L Intake & Output 05/06/18 05/07/18 05/07/18 18:59 06:59 18:59 Intake Total 539 / 539 2007.8 / 2007.8 252 / 252 Output Total 350 / 350 Balance 539 / 539 1658.8 / 1658.8 252 / 252 Weight 90.5 kg Intake: IV 539 / 539 1496.8 / 1496.8 252 / 252 KCl Inj 40 MEQ In D5W Inj 1,000 339 / 339 ML @ 85 mls/hr IV.CONT .Q12H [facility] Rx#:[id number] Diprivan 1000 mg/100 ml Inj 1, 300 / 300 100 / 100 000 mg In 100 ml @ 5 MCG/KG/MIN 2.556 mls/hr IV.CONT TITRATE PRN Rx#:[id number] Calcium Gluconate Inj 1 GM In 110 / 110 D5W Inj 100 ML @ 110 mls/hr IV. SIG ONCE ONE Rx#:[id number] Cerebyx Inj 100 MGPE In NS Inj 52 / 52 50 ML @ 208 mls/hr IV.SIG Q8H [facility] Rx#:[id number] Cerebyx Inj 1,280 MGPE In NS 125.6 / 125.6 Inj 100 ML @ 251.2 mls/hr IV. SIG ONCE ONE Rx#:[id number] MVI-12 Inj 10 ML Thiamine Inj 511.2 / 511.2 100 MG Folvite Inj 1 MG In NS Inj 500 ML @ 125 mls/hr IV.SIG Q24H [facility] Rx#:[id number] Prostaphlin Inj 2 GM In NS Inj 200 / 200 200 / 200 100 / 100 100 ML @ 200 mls/hr IV.SIG Q4H [facility] Rx#:[id number] fentaNYL 10 mcg/mL Premix Drip 250 / 250 2,500 mcg In 250 ml @ 50 MCG/HR 5 mls/hr IV.SIG TITRATE PRN Rx #:[id number] Oral 0 / 0 Tube Feeding 112 / 112 Water Bolus Amount 400 / 400 Output: Urine 350 / 350 Other: Date of Last Bowel Movement 04/30/18 # Bowel Movements 0 - Constitutional no acute distress - Routine HEENT Exam Head: Present: normocephalic - Routine Respiratory Exam Present: patient mechanically ventilated, CTA bilaterally - Routine Cardiovascular Exam Present: RRR - Routine Abdominal Exam Present: soft - Routine Extremities Exam Present: pulses intact - Urinary Catheter Management Condom Cath placed during this visit: no Indwelling Urethral Catheter Cath placed during this visit: yes Reason for continuing: Acute urinary retention Insertion date: 05/06/18 Insertion time: 16:40 Assessment and Plan - Assessment (1) Hypernatremia Code(s): E87.0 - Hyperosmolality and hypernatremia Status: Acute (2) Altered mental status Code(s): R41.82 - Altered mental status, unspecified Status: Acute (3) Endocarditis Code(s): I38 - Endocarditis, valve unspecified Status: Acute (4) Sepsis Code(s): A41.9 - Sepsis, unspecified organism Status: Acute Qualifiers: Sepsis type: sepsis due to unspecified organism Qualified Code(s): A41.9 - Sepsis, unspecified organism (5) Hyponatremia Code(s): E87.1 - Hypo-osmolality and hyponatremia Status: Acute - Plan Patient urine output has declined I will stop the DDAVP, his urine osmolality is not consistent with diabetes insipidus Monitor intake and output sodium slightly better 154 Albumin 25 g every 12 hourly added Follow BMP
[2018-05-07] MEDS: Albumin Human 25% Inj 100 ML IV.SIG SCH (15:31)
[2018-05-07] MEDS: Sodium Chloride 0.45 % Inj 1,000 ML IV.CONT SCH (15:33)
--- NOTE | 2018-05-07 15:56 | P.PNID ---
Subjective Remarks: On vent , intubated Large fluid collection in soft tissues over L spine area No more positive bl clx IR procedure ordered, but pt is non consentable No next of kin Creatinine up t 1.62 Antibiotics: ocxacillin Past Medical History: IVDU Allergies/Adverse Reactions: Allergies No Known Allergies Allergy (Unknown, Uncoded 07/13/17 00:28) Objective Vital Signs 05/06/18 15:49 05/06/18 16:57 05/06/18 20:00 Temperature Pulse Rate 79 56 L Respiratory Rate 16 18 Blood Pressure Pulse Oximetry 100 05/06/18 20:13 05/06/18 20:14 05/06/18 20:17 Temperature Pulse Rate 61 55 L Respiratory Rate 16 16 16 Blood Pressure Pulse Oximetry 100 100 05/06/18 20:30 05/06/18 21:00 05/06/18 21:30 Temperature Pulse Rate 96 H 68 70 Respiratory Rate 21 16 16 Blood Pressure 149/82 H 131/72 117/57 L Pulse Oximetry 99 100 100 05/06/18 22:00 05/06/18 22:30 05/06/18 23:00 Temperature Pulse Rate 69 64 70 Respiratory Rate 16 16 14 Blood Pressure 113/55 L 116/58 L 126/69 Pulse Oximetry 98 100 100 05/06/18 23:30 05/07/18 00:00 05/07/18 00:30 Temperature 99.8 F H Pulse Rate 63 76 67 Respiratory Rate 16 16 16 Blood Pressure 123/64 100/54 L 99/50 L Pulse Oximetry 100 100 100 05/07/18 00:38 05/07/18 01:00 05/07/18 01:30 Temperature Pulse Rate 62 59 L Respiratory Rate 16 16 16 Blood Pressure 107/59 L 109/62 Pulse Oximetry 100 100 97 05/07/18 02:00 05/07/18 02:30 05/07/18 03:00 Temperature Pulse Rate 58 L 57 L 56 L Respiratory Rate 16 16 16 Blood Pressure 111/65 114/69 107/61 Pulse Oximetry 97 97 98 05/07/18 03:30 05/07/18 04:00 05/07/18 04:30 Temperature 97.9 F Pulse Rate 56 L 60 65 Respiratory Rate 16 16 16 Blood Pressure 109/63 110/71 109/62 Pulse Oximetry 100 97 97 05/07/18 05:00 05/07/18 05:04 05/07/18 05:30 Temperature Pulse Rate 72 72 69 Respiratory Rate 16 16 16 Blood Pressure 104/64 Pulse Oximetry 97 96 05/07/18 06:00 05/07/18 06:30 05/07/18 07:00 Temperature Pulse Rate 66 64 61 Respiratory Rate 16 16 16 Blood Pressure 100/59 L 99/54 L 99/54 L Pulse Oximetry 98 99 99 05/07/18 07:30 05/07/18 08:00 05/07/18 08:30 Temperature 97.7 F Pulse Rate 60 59 L 55 L Respiratory Rate 16 16 16 Blood Pressure 99/57 L 102/64 103/67 Pulse Oximetry 100 100 100 05/07/18 08:50 05/07/18 09:00 05/07/18 09:30 Temperature Pulse Rate 57 L 57 L 59 L Respiratory Rate 16 16 16 Blood Pressure 98/60 L 100/62 Pulse Oximetry 100 100 100 05/07/18 10:00 05/07/18 10:30 05/07/18 11:00 Temperature Pulse Rate 75 61 61 Respiratory Rate 17 16 16 Blood Pressure 101/61 103/67 98/60 L Pulse Oximetry 98 96 97 05/07/18 11:30 05/07/18 11:43 05/07/18 12:00 Temperature 98.5 F Pulse Rate 57 L 60 Respiratory Rate 16 16 16 Blood Pressure 101/63 103/66 Pulse Oximetry 97 98 96 05/07/18 12:30 05/07/18 13:00 05/07/18 13:30 Temperature Pulse Rate 63 59 L 57 L Respiratory Rate 16 16 16 Blood Pressure 104/66 108/69 115/77 Pulse Oximetry 95 95 94 L 05/07/18 15:17 Temperature Pulse Rate 69 Respiratory Rate 16 Blood Pressure Pulse Oximetry 94 L Intake & Output 05/06/18 05/07/18 05/07/18 18:59 06:59 18:59 Intake Total 539 / 539 8 / 2007.8 452 / 452 Output Total 350 / 350 Balance 539 / 539 1658.8 / 1658.8 452 / 452 Weight 90.5 kg Intake: IV 539 / 539 1496.8 / 1496.8 452 / 452 KCl Inj 40 MEQ In D5W Inj 1,000 339 / 339 ML @ 85 mls/hr IV.CONT .Q12H [facility] Rx#:[id number] Diprivan 1000 mg/100 ml Inj 1, 300 / 300 100 / 100 000 mg In 100 ml @ 5 MCG/KG/MIN 2.556 mls/hr IV.CONT TITRATE PRN Rx#:[id number] Calcium Gluconate Inj 1 GM In 110 / 110 D5W Inj 100 ML @ 110 mls/hr IV. SIG ONCE ONE Rx#:[id number] Cerebyx Inj 100 MGPE In NS Inj 52 / 52 50 ML @ 208 mls/hr IV.SIG Q8H [facility] Rx#:[id number] Cerebyx Inj 1,280 MGPE In NS 125.6 / 125.6 Inj 100 ML @ 251.2 mls/hr IV. SIG ONCE ONE Rx#:[id number] MVI-12 Inj 10 ML Thiamine Inj 511.2 / 511.2 100 MG Folvite Inj 1 MG In NS Inj 500 ML @ 125 mls/hr IV.SIG Q24H [facility] Rx#:[id number] Prostaphlin Inj 2 GM In NS Inj 200 / 200 200 / 200 300 / 300 100 ML @ 200 mls/hr IV.SIG Q4H [facility] Rx#:[id number] fentaNYL 10 mcg/mL Premix Drip 250 / 250 2,500 mcg In 250 ml @ 50 MCG/HR 5 mls/hr IV.SIG TITRATE PRN Rx #:[id number] Oral 0 / 0 Tube Feeding 112 / 112 Water Bolus Amount 400 / 400 Output: Urine 350 / 350 Other: Date of Last Bowel Movement 04/30/18 # Bowel Movements 0 05/06/18 16:50 Sputum - Endotracheal Gram Stain - Final 05/06/18 16:50 Sputum - Endotracheal Sputum Culture - Preliminary Heavy growth normal respiratory hai at 24 hours 05/02/18 20:19 Blood - Peripheral Aerobic Blood Culture - Final No growth in 5 days 05/02/18 20:19 Blood - Peripheral Anaerobic Blood Culture - Final No growth in 5 days 05/02/18 20:14 Blood - Peripheral Aerobic Blood Culture - Final Staphylococcus aureus 05/02/18 20:14 Blood - Peripheral Anaerobic Blood Culture - Final No growth in 5 days Lab - Hematology Results 05/06/18 05/07/18 06:53 05:08 WBC 12.4 H 13.1 H RBC 3.28 L 3.10 L Hgb 9.5 L 9.0 L Hct 27.6 L 26.8 L MCV 84.1 86.6 MCH 28.9 29.1 MCHC 34.4 33.5 RDW 14.3 15.2 Plt Count 217 214 MPV 8.9 8.8 Prelim Diff (Auto) Slide review pending Slide review pending Neut % (Auto) 77.8 H 80.2 H Lymph % (Auto) 10.0 10.8 [place] % (Auto) 11.1 H 6.6 Eos % (Auto) 0.9 2.2 Baso % (Auto) 0.2 0.2 Neut # (Auto) 9.6 H 10.5 H Lymph # (Auto) 1.2 1.4 [place] # (Auto) 1.4 H 0.9 Eos # (Auto) 0.1 0.3 Baso # (Auto) 0.0 0.0 WBC Differential Manual diff final Manual diff final Seg Neuts % (Manual) 77 H 85 H Band Neuts % (Manual) 1 2 Lymphocytes % (Manual) 10 6 L Monocytes % (Manual) 4 3 Eosinophils % (Manual) 2 Metamyelocytes % (Man) 5 H Myelocytes % (Man) 3 H 2 H Abs Neuts (Manual) 10.7 H 11.7 H Nucleated RBCs/100 WBC 1 H Differential Comment . . Dohle Bodies Present H Platelet Estimate Normal Normal Platelet Morphology Normal Normal Lab - Chemistry Results 05/05/18 05/05/18 05/05/18 15:00 17:20 19:28 Sodium 159 H* 156 H* Potassium 3.1 L Chloride 123 H Carbon Dioxide 23.3 Anion Gap 13 BUN 28 H Creatinine 0.89 Estimated GFR Greater than 89 POC Glucose 80 Random Glucose 85 Osmolality Lactic Acid Calcium 7.6 L Prot Corrected Calcium Phosphorus Magnesium Total Bilirubin AST ALT Alkaline Phosphatase Ammonia Total Creatine Kinase B-Natriuretic Peptide Total Protein Albumin 05/06/18 05/06/18 05/06/18 06:53 06:53 06:53 Sodium 157 H* 157 H* Potassium 3.3 L Chloride 123 H Carbon Dioxide 23.6 Anion Gap 10 BUN 29 H Creatinine 0.99 Estimated GFR 85 L POC Glucose Random Glucose 116 H Osmolality 321 H Lactic Acid Calcium 7.2 L* Prot Corrected Calcium Phosphorus 4.2 Magnesium 2.6 H Total Bilirubin AST ALT Alkaline Phosphatase Ammonia Total Creatine Kinase B-Natriuretic Peptide Total Protein Albumin 1.9 L 05/06/18 05/06/18 05/06/18 14:43 16:55 16:55 Sodium 156 H* Potassium 3.5 Chloride 123 H Carbon Dioxide 25.2 Anion Gap 8 BUN 32 H Creatinine 1.16 Estimated GFR 70 L POC Glucose 95 Random Glucose 102 Osmolality Lactic Acid 1.4 Calcium 7.7 L Prot Corrected Calcium Phosphorus Magnesium Total Bilirubin AST ALT Alkaline Phosphatase Ammonia Total Creatine Kinase B-Natriuretic Peptide Total Protein Albumin 05/06/18 05/06/18 05/06/18 16:55 19:29 20:18 Sodium Potassium Chloride Carbon Dioxide Anion Gap BUN Creatinine Estimated GFR POC Glucose 97 Random Glucose Osmolality 323 H Lactic Acid Calcium Prot Corrected Calcium Phosphorus Magnesium Total Bilirubin AST ALT Alkaline Phosphatase Ammonia Total Creatine Kinase B-Natriuretic Peptide 868 H Total Protein Albumin 05/07/18 05/07/18 05/07/18 00:32 05:07 05:08 Sodium 154 H Potassium 3.5 Chloride 123 H Carbon Dioxide 22.9 Anion Gap 8 BUN 39 H Creatinine 1.62 H Estimated GFR 48 L POC Glucose 104 105 Random Glucose 99 Osmolality Lactic Acid Calcium 7.2 L* Prot Corrected Calcium 7.8 L Phosphorus 5.6 H D Magnesium 2.4 Total Bilirubin 0.5 AST 31 ALT 19 Alkaline Phosphatase 64 Ammonia Total Creatine Kinase 292 B-Natriuretic Peptide Total Protein 5.9 L Albumin 1.7 L 05/07/18 05/07/18 05/07/18 05:08 05:08 07:25 Sodium Potassium Chloride Carbon Dioxide Anion Gap BUN Creatinine Estimated GFR POC Glucose 127 H Random Glucose Osmolality Lactic Acid 1.5 Calcium Prot Corrected Calcium Phosphorus Magnesium Total Bilirubin AST ALT Alkaline Phosphatase Ammonia 36 H Total Creatine Kinase B-Natriuretic Peptide Total Protein Albumin 05/07/18 11:34 Sodium Potassium Chloride Carbon Dioxide Anion Gap BUN Creatinine Estimated GFR POC Glucose 105 Random Glucose Osmolality Lactic Acid Calcium Prot Corrected Calcium Phosphorus Magnesium Total Bilirubin AST ALT Alkaline Phosphatase Ammonia Total Creatine Kinase B-Natriuretic Peptide Total Protein Albumin Imaging: ITS Impressions Chest CT 04/30/18 00:00 CONCLUSION: 1. Parenchymal process bilaterally most likely inflammatory and pneumonia. Abdomen/Pelvis CT 04/30/18 08:48 CONCLUSION: 1. 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 2. Haziness in the anterior margins of the perinephric space at the junction of the spleen possibly inflammatory process of uncertain etiology. Head MRI 05/01/18 00:00 CONCLUSION: 1. Multifocal bilateral punctate infarcts, suspicious for embolic disease. 2. No midline shift or mass effect. Lumbar Spine MRI 05/06/18 00:00 CONCLUSION: 1. Large posterior subcutaneous fluid collection with enhancement. This could represent a seroma or abscess. 2. No evidence of osteomyelitis or discitis. Thoracic Spine MRI 05/06/18 00:00 CONCLUSION: 1. Negative thoracic MRI with no evidence of osteomyelitis or discitis. 2. Please see lumbar spine MRI for further details on findings in this region. Head CT 05/06/18 15:42 CONCLUSION: 1. No acute hemorrhage or mass effect. 2. The small bilateral known punctate infarcts seen on the MRI are not distinctly visualized. 3. Mucosal thickening in the ethmoidal air cells, sphenoid sinus and both maxillary sinuses. Chest X-Ray 05/06/18 15:57 CONCLUSION: ET tube in good position. Mild perihilar vascular congestion. Physical Exam: GENERAL: NAD Intubated. Sedated SKIN: Warm and dry. extensive petechial and [place] lesions HEAD: Atraumatic. Normocephalic. EYES: Pupils equal and round. No scleral icterus. No injection or drainage. numerous conjubnctival hmrgs ENT: No nasal bleeding or discharge. Mucous membranes pink and moist. NECK: Trachea midline. No JVD. CARDIOVASCULAR: Regular rate and rhythm. RESPIRATORY: No accessory muscle use. Clear to auscultation. Breath sounds equal bilaterally. GASTROINTESTINAL: Abdomen soft, non-tender, nondistended. Hepatic and splenic margins not palpable. MUSCULOSKELETAL: Extremities without clubbing, cyanosis, or edema. No obvious deformities. 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
--- NOTE | 2018-05-07 16:03 | MB ---
cc: Melva Chen DATE: 05/07/2018 HISTORY OF PRESENT ILLNESS: A 30-year-old male with history of IV drug use; drug of choice was heroin 5 days prior to admission. Previous history of endocarditis, hepatitis C, presented to the emergency department in [place] for acute psychosis and altered mental status. The CT of the head initially in [place] was negative for acute findings. When he was transferred, he was very delirious in the emergency department. The emergency room workup included a white cell count of 16,000, troponin of 3, lactic acid of 3.1, potassium was 3.1. He was immediately given IV antibiotics and IV fluid resuscitation. The patient underwent extensive workup including MRI of the brain which showed multifocal bilateral punctate infarcts suspicious for septic emboli. Blood culture showed 4/4 gram-positive cocci in initial blood cultures. The patient's initial echo showed no vegetation; however, he underwent transesophageal echocardiogram which showed an ejection fraction of 55%. There was a large mobile density on the anterior leaflet consistent with endocarditis. The patient became increasingly confused with respiratory hypoxemia and required intubation where he currently is sedated on propofol. We were consulted to evaluate for mitral valve endocarditis, mitral valve repair versus replacement. Patient underwent a lumbar puncture. The patient also had lumbar spine which showed a large posterior subcutaneous fluid collection concerning for an abscess and underwent EEG to rule out possible seizures and the EEG was abnormal study consistent with severe encephalitis. PAST MEDICAL HISTORY: IV drug use. ADMISSION DIAGNOSES: Severe sepsis, acute metabolic encephalopathy, delirium, drug withdrawal lactic acidosis, hypokalemia, rhabdomyolysis, elevated troponin and polysubstance abuse and dehydration. PAST SURGICAL HISTORY: No surgical history. FAMILY HISTORY: Unknown. SOCIAL HISTORY: Positive for tobacco abuse, IV drug use. REVIEW OF SYSTEMS: Unobtainable. PHYSICAL EXAMINATION: VITAL SIGNS: Blood pressure 116/70, heart rate of 58, O2 saturation 94% on 45% FiO2; the patient is on PRVC mode. GENERAL: The patient is somewhat appearing; orally intubated, sedated on propofol. He does grimace to pain, seems to withdraw from painful stimuli. He also appeared to have some tremors. HEENT: Head is normocephalic. Pupils were approximately 2 mm to 3 mm, midline. SKIN: Warm and dry. Multiple tattoos. He has some skin petechia; some swelling in both of his hands, mainly on the right. There was some conjunctival splinter hemorrhages noted. NECK: Supple. No JVD. HEART: Sounds S1, S2, slightly tachycardic. No murmur appreciated. LUNGS: Diminished in the bases. Few coarse breath sounds, otherwise clear to auscultation. ABDOMEN: Soft, obese, nontender. No masses or organomegaly. EXTREMITIES: No deformity. No clubbing. NEUROLOGIC: The patient again sedated on propofol with a RASS of -2. LABORATORY DATA: Lab work shows hemoglobin 9.0 with hematocrit of 26. White cell count of 13, platelet count of 214. Sodium 154, potassium 3.5, BUN of 39, creatinine 1.62. Ammonia level 36, albumin 1.7. Tox screen was a limited one which was negative. Microbiology showed 4/4 blood cultures positive for Staphylococcus aureus, on 04/30/2018. Also consistent on 05/02/2018, he had repeat cultures, which showed no growth in 5 days. Sputum initially is normal hai. IMPRESSION: 1. This is an unfortunate young man with multiple illnesses including acute metabolic encephalopathy, concern for probable septic emboli to the brain, polysubstance abuse with withdrawal. 2. Respiratory insufficiency with some consolidation in the left mid lobe, concern for pneumonia with bilateral infiltrates. 3. The patient does have a vegetation on the anterior leaflet of the mitral valve 3 cm x 1 cm. 4. Hepatitis C. 5. Severe sepsis; infective endocarditis. At this time again patient has evidence of septic emboli to the brain, significant comorbidities. At this time with the patient's ongoing use of IV heroin deems this patient, not a surgical candidate at this time. Risk of surgery outweighs the benefits; recommend supportive care and antibiotics. LALY Calles MD [facility] , 02:21 PM , 02:36 PM TIMOTHY
--- NOTE | 2018-05-07 16:54 | P.RAD ---
Post Procedure Progress Note - Pre Procedure Diagnosis (1) Sepsis - Post Procedure Diagnosis (1) Sepsis - Procedure Information Procedure Date: 05/07/18 Supervising Radiologist: Benjy Carroll Jr, MD Estimated blood loss (mL): 0 Anesthesia: Other - Plan of Activity Patient to Unit: Critical Care Patient Condition: Fair Additional Comments: Pt brought to IR for aspiration/drainage of dorsal soft tissue fluid seen on Lsp MRI. US of the area was performed in preparation. No fluid collection observed. Mild subcutaneous edema. No abscess or organized pocket of fluid to drain. See PACS Report for procedural detail/treatment.
[2018-05-07] MEDS: Multivitamin Inj 10 ML, Thiamine Inj 100 MG, Folic Acid Inj 1 MG in Sodium Chlor 0.9% I... IV.SIG SCH (17:47)
[2018-05-08] MEDS: Fosphenytoin Inj 100 MGPE in Sodium Chlor 0.9% Inj 50 ML IV.SIG SCH ×3 (00:30→16:00)
[2018-05-08] MEDS: Insulin NovoLOG Aspart Correctional Sugar Inj SQ SCH ×4 (00:58→17:23)
[2018-05-08] MEDS: Oral Hygiene Kit OROPHARYNG SCH ×4 (00:59→15:29)
[2018-05-08] MEDS: Sodium Chloride 0.45 % Inj 1,000 ML IV.CONT SCH (02:54)
[2018-05-08] MEDS: Albumin Human 25% Inj 100 ML IV.SIG SCH ×2 (02:55→14:14)
[2018-05-08] MEDS: Propofol 1000 mg/100 ml Inj 1,000 MG/100 ML BOTTLE IV.CONT PRN (04:10)
[2018-05-08 06:16] LABS: Calcium 6.9 mg/dL (8.5-10.1); Carbon Dioxide 21.9 meq/L (21.0-32.0); Potassium 3.6 meq/L (3.5-5.1)
[2018-05-08 06:30] LABS: Total Protein 5.8 g/dL (6.4-8.2)
[2018-05-08] MEDS: Enoxaparin Inj 40 MG/0.4 ML Syringe SQ SCH (08:00)
[2018-05-08] MEDS: Senna/Docusate Sodium 8.6/50 MG Tablet PO SCH ×2 (08:00→20:33)
[2018-05-08] MEDS: Hypromellose 0.3% Opth Gel 10 GM Bottle EACH EYE SCH ×2 (08:01→20:33)
[2018-05-08] MEDS: Chlorhexidine 0.12% Oral Kit 15 ML UDC OROPHARYNG SCH ×2 (08:01→20:32)
[2018-05-08] MEDS ORDERED: Magnesium Citrate Liq 300 ML Bottle NG/OG ONE (09:00)
--- NOTE | 2018-05-08 10:53 | IR ---
EXAM DATE: 05/07/2018 5:04 PM EDT AGE/SEX: 38 years / Male INDICATIONS: Patient with a history of subcutaneous lumbar fluid collection. HISTORY OF PRESENT ILLNESS: TEMPERATURE: HEART RATE: BLOOD PRESSURE: RESPIRATIONS: OXIMETRY: MEDICAL/SURGICAL HISTORY: Hepatitis C. Endocarditis Heroin abuse Sepsis None. COMPARISON: No prior exams available for comparison. SOCIAL HISTORY: Illicit drug use. SMOKING HISTORY: ALLERGIES: NKA IMAGING STUDIES: The patient was brought to the interventional suite for percutaneous drainage of a dorsal soft tissue fluid collection seen on the prior MRI of the lumbar spine. Sonographic evaluation of the dorsal sof t tissues was performed in preparation for the procedure. No fluid collection is observed. Subcutaneo us edema is seen scattered throughout the dorsal soft tissues. No abscess or drainable fluid collecti on observed. ASSESSMENT: Subcutaneous edema without a drainable fluid collection. No abscess. PLAN: No intervention taken. TIME SPENT: 20 minutes Electronically signed by: Benjy Carroll MD 05/08/2018 10:51 AM EDT
--- NOTE | 2018-05-08 12:29 | P.PNCC ---
Subjective Subjective Remarks/Hospital Course: Patient is 38-year-old male with history of IV drug use, prev endocarditis, Hepatitis C, who presented to the emergency department via [facility] from [place] for acute psychosis and altered mental status. CT of the head done at [place] was negative for acute findings. Patient was very confused and delirious at [facility] ED. His last IV drug use of heroin was 5 days ago. Urine drug screen is pending at this time. ER workup showed multiple abnormalities, pertinent ones being a white count of 16.1 with left shift, troponin 3.24, lactic acid 3.1, CPK of 592, potassium of 3.1. Received 3 L of normal saline in the ED and was given Zosyn and vancomycin. I evaluated the patient in the emergency department. He is confused delirious oriented to person only. He is very tachycardic and dry. Patient appears very critical and septic. With IV drug use patient most likely has recurrence of infective endocarditis. Cardiology consult as well as ID consult had been requested. I will give additional 1 L fluid bolus and continue vancomycin and Zosyn. I will place on Precedex. 2D echo is pending at this time 05/01: Patient remains critically ill confused encephalopathy but slightly better speech. MRI of the brain is pending at this time. CT of the abdomen pelvis showed splenic infarct and probable inflammatory changes of the left perinephric space. CT chest shows bilateral infiltrates. WBC count is elevated 20.4 today. On broad-spectrum antibiotics per ID. Echo pending. MRI brain shows Multifocal bilateral punctate infarcts, suspicious for embolic disease. Blood cx positive 11/29 GPC 05/02: Patient intermittently agitated overnight, Precedex closely started. Currently, speech is improved. Echo official report pending but preliminary no vegetation seen. Will schedule AURELIA. Blood cultures growing staph aureus. Antibiotics narrowed to oxacillin by ID 05/03: Drowsy, easily arousable. remains orally intubated on mech ventilation. Subjective 05/06: Reconsulted due to acute altered desaturation on general medical floor. Currently 9% nonrebreather and speaking nonsensically. Patient is currently restrained to the bed with soft restraints. Decision made to intubate. Phone number in chart [phone] is not the mother. No other family available/ second tissue. Attempted to call his cell phone without results. 05/07: Remains intubated sedated very critical. WBC count increasing indicating worsening sepsis. Patient remains encephalopathy. Lumbar spine MRI showed large posterior subcutaneous fluid collection with enhancement-seroma or abscess. No evidence of osteomyelitis or discitis. IR to drain today with further fluid studies. There was questionable seizures overnight EEG preliminary no seizures. Continue fosphenytoin for now 05/08: Remains intubated, off sedation. Creat worsening 2.5 today, UO approx 250 ml in 24 hours despite hydration. Stop IVF, give 40 mg IV Lasix now. Tolerating CPAP , slightly tachypneic Objective Vital Signs / I&O: Vital Signs 05/07/18 12:30 05/07/18 13:00 05/07/18 13:30 Temperature Pulse Rate 63 59 L 57 L Respiratory Rate 16 16 16 Blood Pressure 104/66 108/69 115/77 Pulse Oximetry 95 95 94 L 05/07/18 14:00 05/07/18 14:30 05/07/18 15:00 Temperature Pulse Rate 62 61 70 Respiratory Rate 16 16 13 Blood Pressure 116/76 120/79 Pulse Oximetry 94 L 94 L 93 L 05/07/18 15:12 05/07/18 15:17 05/07/18 15:35 Temperature Pulse Rate 71 69 76 Respiratory Rate 16 16 14 Blood Pressure 114/71 126/77 Pulse Oximetry 94 L 94 L 94 L 05/07/18 15:59 05/07/18 16:00 05/07/18 16:28 Temperature 98.3 F Pulse Rate 77 77 77 Respiratory Rate 10 L 12 Blood Pressure 129/84 Pulse Oximetry 93 L 93 L 96 05/07/18 16:30 05/07/18 17:00 05/07/18 17:17 Temperature Pulse Rate 86 87 Respiratory Rate 9 L 23 Blood Pressure 143/91 H 148/84 H Pulse Oximetry 94 L 93 L 05/07/18 17:30 05/07/18 18:00 05/07/18 18:21 Temperature Pulse Rate 77 73 Respiratory Rate 16 16 Blood Pressure 121/67 114/62 Pulse Oximetry 95 95 100 05/07/18 18:30 05/07/18 19:00 05/07/18 19:30 Temperature Pulse Rate 68 82 88 Respiratory Rate 16 18 21 Blood Pressure 111/65 116/71 134/80 Pulse Oximetry 95 95 94 L 05/07/18 20:00 05/07/18 20:25 05/07/18 20:30 Temperature 99.1 F Pulse Rate 87 76 83 Respiratory Rate 21 20 18 Blood Pressure 137/84 145/86 H Pulse Oximetry 94 L 94 L 97 05/07/18 21:00 05/07/18 21:30 05/07/18 22:00 Temperature Pulse Rate 86 89 85 Respiratory Rate 19 19 24 Blood Pressure 141/81 H 143/82 H 143/85 H Pulse Oximetry 95 96 95 05/07/18 22:30 05/07/18 23:00 05/07/18 23:26 Temperature Pulse Rate 89 78 Respiratory Rate 18 16 17 Blood Pressure 134/80 109/67 Pulse Oximetry 95 95 95 05/07/18 23:30 05/08/18 00:00 05/08/18 00:30 Temperature 99.1 F Pulse Rate 75 73 75 Respiratory Rate 16 16 16 Blood Pressure 109/62 105/57 L 100/82 Pulse Oximetry 95 95 95 05/08/18 01:00 05/08/18 01:30 05/08/18 02:00 Temperature 99.2 F Pulse Rate 83 81 75 Respiratory Rate 18 16 16 Blood Pressure 125/77 120/76 105/58 L Pulse Oximetry 96 95 95 05/08/18 02:30 05/08/18 03:00 05/08/18 03:27 Temperature Pulse Rate 72 69 67 Respiratory Rate 16 16 16 Blood Pressure 101/58 L 103/57 L Pulse Oximetry 95 96 96 05/08/18 03:31 05/08/18 04:00 05/08/18 04:30 Temperature Pulse Rate 74 73 74 Respiratory Rate 19 16 16 Blood Pressure 103/76 103/58 L 111/71 Pulse Oximetry 95 96 96 05/08/18 05:00 05/08/18 05:04 05/08/18 05:30 Temperature Pulse Rate 82 86 78 Respiratory Rate 40 H 28 H 17 Blood Pressure 133/91 H 114/59 L Pulse Oximetry 95 96 95 05/08/18 06:00 05/08/18 06:30 05/08/18 07:00 Temperature Pulse Rate 69 67 65 Respiratory Rate 16 16 17 Blood Pressure 102/53 L 98/52 L 101/60 Pulse Oximetry 96 96 96 05/08/18 07:30 05/08/18 07:43 05/08/18 07:45 Temperature Pulse Rate 80 82 Respiratory Rate 16 16 17 Blood Pressure 122/73 Pulse Oximetry 96 96 05/08/18 08:00 05/08/18 08:30 05/08/18 09:00 Temperature 98.2 F Pulse Rate 79 79 78 Respiratory Rate 17 20 20 Blood Pressure 128/76 125/77 135/82 Pulse Oximetry 88 L 96 95 Intake & Output 05/07/18 05/08/18 05/08/18 18:59 06:59 18:59 Intake Total 1016 / 1016 3196.2 / 3196.2 52 Output Total 200 / 200 250 / 250 Balance 816 / 816 2946.2 / 2946.2 Weight 90.5 kg Intake: IV 704 / 704 2163.2 / 2163.2 Diprivan 1000 mg/100 ml Inj 1, 100 / 100 200 / 200 000 mg In 100 ml @ 5 MCG/KG/MIN 2.556 mls/hr IV.CONT TITRATE PRN Rx#:[id number] 1/2 Normal Saline Inj 1,000 ML 1000 / 1000 @ 84 mls/hr IV.CONT .[id number] STEFFANIE Rx#:[id number] Flexbumin 25% Inj 100 ML @ 60 100 / 100 100 / 100 mls/hr IV.SIG Q12H STEFFANIE Rx#: [id number] Cerebyx Inj 100 MGPE In NS Inj 104 / 104 52 / 52 52 / 52 50 ML @ 208 mls/hr IV.SIG Q8H STEFFANIE Rx#:[id number] MVI-12 Inj 10 ML Thiamine Inj 511.2 / 511.2 100 MG Folvite Inj 1 MG In NS Inj 500 ML @ 125 mls/hr IV.SIG Q24H STEFFANIE Rx#:[id number] Prostaphlin Inj 2 GM In NS Inj 400 / 400 300 / 300 100 ML @ 200 mls/hr IV.SIG Q4H STEFFANIE Rx#:[id number] Oral 0 / 0 0 / 0 Tube Feeding 75 / 75 403 / 403 Tube Irrigant 30 / 30 Water Bolus Amount 237 / 237 600 / 600 Output: Urine 200 / 200 Urine Amount (Catheter) 250 / 250 Indwelling Urethral Catheter 250 / 250 Other: Date of Last Bowel Movement 04/30/18 # Bowel Movements 0 0 Result Diagrams: 05/07/18 05:08 05/08/18 04:25 Objective Remarks: GENERAL: 38-year-old male who is ill-appearing currently orotracheally intubated SKIN: Warm/dry. Multiple tattoos. Multiple skin petechia with stigmata of septic emboli/[place] lesions HEAD: Atraumatic. Normocephalic. EYES: Pupils equal and round. No scleral icterus. Conjunctival splinter hemorrhages present ENT: No nasal bleeding or discharge. Mucous membranes dry. Orotracheally intubated NECK: Trachea midline. No JVD. CARDIOVASCULAR: Tachycardic rate and rhythm. S1, S2 no S4. 1/6 systolic murmur appreciated. RESPIRATORY: No accessory muscle use. Clear to auscultation. Breath sounds equal bilaterally. GASTROINTESTINAL: Abdomen soft, tenderness in epigastric region, nondistended. Hepatic and splenic margins not palpable. MUSCULOSKELETAL: No obvious deformities. No clubbing. NEUROLOGICAL: Currently intubated. Moves all 4 extremities following commands today. Assessment and Plan - Assessment and Plan Plan: NEURO/Psych: Metabolic encephalopathy Multifocal bilateral frontal/parietal occipital and cerebellar punctate infarcts , likely septic emboli Polysubstance abuse with withdrawal Lumbar fluid collection/abscess -Currently on propofol/fentanyl drips for sedation/analgesia while intubated -Daily sedation vacation for SBT -MRI brain shows Multifocal bilateral punctate infarcts, suspicious for embolic disease. -Neurology consulted for embolic bilateral infarcts. Dr. Mike. Continue aspirin 81 mg daily -Supplement multivitamin thiamine and folic acid daily -Watch closely for signs of meningitis/brain abscess from septic emboli -Developed possible seizures, started on fosphenytoin -EEG-severe encephalopathy -IR attempted drain lumbar fluid collection-but on ultrasound there was no fluid collection RESP: Acute respiratory failure Pneumonia/septic emboli -PRVC ventilation. Albuterol/ipratropium aerosols every 6 hours with albuterol aerosols every 2 hours as needed for dyspnea -Ventilator bundle -Spontaneous breathing trials -Sputum culture negative to date. CT chest 04/30 shows bilateral infiltrates CV: NSTEMI Mitral valve infective endocarditis Hypertension -2d echo report prelim negative, cardiology Dr. Martines -(05/03) AURELIA with large mobile density on the anterior leaflet of mitral valve consistent with endocarditis (3cm x 1cm) -Continue aspirin 81 mg daily and carvedilol 3.25 mg twice daily. -As needed nicardipine drip -Avoid statins at this time due to hep C -Elevated troponin may be secondary to coronary artery septic emboli -Maintenance IV fluid at 84 mL/h-DC Today -Lasix 40 mg IV x1 GI: Hepatitis C -IV famotidine 20 mg twice daily. -Tube feeds of vital 1.5 goal 50 cc an hour- hold for possible extubation -Docusate sodium/senna 1 tablet twice daily for bowel regimen -Speech pathology consulted for speech evaluation and swallow evaluation Renal//FEN: Acute kidney injury Hypernatremia Hypopotassemia -Monitor renal function closely. -[place]aga[place] catheter. Accurate I's and O's -Replace electrolytes as clinically indicated per ICU electrolyte protocol -Free water 200 cc every 4 hours ID: Severe sepsis Mitral valve infective endocarditis -Antibiotics with Oxacillin per ID -Blood culture with GPC 4 staph aureus -Recheck sputum culture 05/06-negative to date HEME: Leukocytosis Normocytic anemia -Monitor CBC, coags ENDO: -Electrolyte replacement per protocol -Sliding scale insulin with aspart insulin low regimen every 6 hours PROPH: -Bilateral lower extremity SCDs. famotidine. Enoxaparin 40 mg sq daily LINES: -Utilize peripheral IVs, central line if needed 35 minutes critical care time Remains critically ill with severe sepsis and systemic emboli with complication. Renal failure appears to be worsening creatinine is 2.5 with oliguria. Attempt forced diuresis
--- NOTE | 2018-05-08 12:57 | XR ---
EXAM DATE: 05/08/2018 12:49 PM EDT AGE/SEX: 38 years / Male INDICATIONS: Respiratory disease. CLINICAL DATA: This is the patient's subsequent encounter. Patient reports that signs and symptoms h ave been present for 1 week and indicates a pain score of Nonresponsive. MEDICAL/SURGICAL HISTORY: . Hepatitis C. IVDA, Endocarditis. . Cardiac cath. . COMPARISON: [facility], CHEST 1V SINGLE AP, 05/06/2018. . FINDINGS: ET tube and nasogastric tube are in good position. Increasing bibasilar parenchymal changes with air bronchograms in the retrocardiac region on the left . No significant pleural effusion. No pneumothorax. CONCLUSION: Support apparatus in good position. Increasing bibasilar parental changes. Electronically signed by: Al Lentz MD 05/08/2018 12:56 PM EDT
--- NOTE | 2018-05-08 13:23 | P.PNNP ---
Subjective Interval history: Patient is on the ventilator Physical Exam Vital signs: Vital Signs 05/07/18 13:30 05/07/18 14:00 05/07/18 14:30 Temperature Pulse Rate 57 L 62 61 Respiratory Rate 16 16 16 Blood Pressure 115/77 116/76 120/79 Pulse Oximetry 94 L 94 L 94 L 05/07/18 15:00 05/07/18 15:12 05/07/18 15:17 Temperature Pulse Rate 70 71 69 Respiratory Rate 13 16 16 Blood Pressure 114/71 Pulse Oximetry 93 L 94 L 94 L 05/07/18 15:35 05/07/18 15:59 05/07/18 16:00 Temperature 98.3 F Pulse Rate 76 77 77 Respiratory Rate 14 10 L 12 Blood Pressure 126/77 129/84 Pulse Oximetry 94 L 93 L 93 L 05/07/18 16:28 05/07/18 16:30 05/07/18 17:00 Temperature Pulse Rate 77 86 Respiratory Rate 9 L Blood Pressure 143/91 H Pulse Oximetry 96 94 L 05/07/18 17:17 05/07/18 17:30 05/07/18 18:00 Temperature Pulse Rate 87 77 73 Respiratory Rate 23 16 16 Blood Pressure 148/84 H 121/67 114/62 Pulse Oximetry 93 L 95 95 05/07/18 18:21 05/07/18 18:30 05/07/18 19:00 Temperature Pulse Rate 68 82 Respiratory Rate 16 18 Blood Pressure 111/65 116/71 Pulse Oximetry 100 95 95 05/07/18 19:30 05/07/18 20:00 05/07/18 20:25 Temperature 99.1 F Pulse Rate 88 87 76 Respiratory Rate 21 21 20 Blood Pressure 134/80 137/84 Pulse Oximetry 94 L 94 L 94 L 05/07/18 20:30 05/07/18 21:00 05/07/18 21:30 Temperature Pulse Rate 83 86 89 Respiratory Rate 18 19 19 Blood Pressure 145/86 H 141/81 H 143/82 H Pulse Oximetry 97 95 96 05/07/18 22:00 05/07/18 22:30 05/07/18 23:00 Temperature Pulse Rate 85 89 78 Respiratory Rate 24 18 16 Blood Pressure 143/85 H 134/80 109/67 Pulse Oximetry 95 95 95 05/07/18 23:26 05/07/18 23:30 05/08/18 00:00 Temperature 99.1 F Pulse Rate 75 73 Respiratory Rate 17 16 16 Blood Pressure 109/62 105/57 L Pulse Oximetry 95 95 95 05/08/18 00:30 05/08/18 01:00 05/08/18 01:30 Temperature Pulse Rate 75 83 81 Respiratory Rate 16 18 16 Blood Pressure 100/82 125/77 120/76 Pulse Oximetry 95 96 95 05/08/18 02:00 05/08/18 02:30 05/08/18 03:00 Temperature 99.2 F Pulse Rate 75 72 69 Respiratory Rate 16 16 16 Blood Pressure 105/58 L 101/58 L 103/57 L Pulse Oximetry 95 95 96 05/08/18 03:27 05/08/18 03:31 05/08/18 04:00 Temperature Pulse Rate 67 74 73 Respiratory Rate 16 19 16 Blood Pressure 103/76 103/58 L Pulse Oximetry 96 95 96 05/08/18 04:30 05/08/18 05:00 05/08/18 05:04 Temperature Pulse Rate 74 82 86 Respiratory Rate 16 40 H 28 H Blood Pressure 111/71 133/91 H Pulse Oximetry 96 95 96 05/08/18 05:30 05/08/18 06:00 05/08/18 06:30 Temperature Pulse Rate 78 69 67 Respiratory Rate 17 16 16 Blood Pressure 114/59 L 102/53 L 98/52 L Pulse Oximetry 95 96 96 05/08/18 07:00 05/08/18 07:30 05/08/18 07:43 Temperature Pulse Rate 65 80 Respiratory Rate 17 16 16 Blood Pressure 101/60 122/73 Pulse Oximetry 96 96 96 05/08/18 07:45 05/08/18 08:00 05/08/18 08:30 Temperature 98.2 F Pulse Rate 82 79 79 Respiratory Rate 17 17 20 Blood Pressure 128/76 125/77 Pulse Oximetry 88 L 96 05/08/18 09:00 05/08/18 09:30 05/08/18 10:00 Temperature Pulse Rate 78 78 79 Respiratory Rate 20 23 23 Blood Pressure 135/82 133/79 144/82 H Pulse Oximetry 95 95 96 05/08/18 10:30 05/08/18 11:00 05/08/18 11:30 Temperature Pulse Rate 80 81 83 Respiratory Rate 30 H 32 H 28 H Blood Pressure 131/79 146/85 H 137/82 Pulse Oximetry 96 96 96 05/08/18 12:00 05/08/18 12:30 05/08/18 12:36 Temperature Pulse Rate 82 82 Respiratory Rate 26 H 25 H Blood Pressure 141/88 H 144/90 H Pulse Oximetry 96 96 05/08/18 13:00 Temperature Pulse Rate 83 Respiratory Rate 24 Blood Pressure 144/92 H Pulse Oximetry Intake & Output 05/07/18 05/08/18 05/08/18 18:59 06:59 18:59 Intake Total 1016 / 1016 3196.2 / 3196.2 152 / 152 Output Total 200 / 200 250 / 250 Balance 816 / 816 2946.2 / 2946.2 152 / 152 Weight 90.5 kg Intake: IV 704 / 704 2163.2 / 2163.2 152 / 152 Diprivan 1000 mg/100 ml Inj 1, 100 / 100 200 / 200 000 mg In 100 ml @ 5 MCG/KG/MIN 2.556 mls/hr IV.CONT TITRATE PRN Rx#:[id number] 1/2 Normal Saline Inj 1,000 ML 1000 / 1000 @ 84 mls/hr IV.CONT .[id number] STEFFANIE Rx#:[id number] Flexbumin 25% Inj 100 ML @ 60 100 / 100 100 / 100 mls/hr IV.SIG Q12H STEFFANIE Rx#: [id number] Cerebyx Inj 100 MGPE In NS Inj 104 / 104 52 / 52 52 / 52 50 ML @ 208 mls/hr IV.SIG Q8H STEFFANIE Rx#:[id number] MVI-12 Inj 10 ML Thiamine Inj 511.2 / 511.2 100 MG Folvite Inj 1 MG In NS Inj 500 ML @ 125 mls/hr IV.SIG Q24H STEFFANIE Rx#:[id number] Prostaphlin Inj 2 GM In NS Inj 400 / 400 300 / 300 100 / 100 100 ML @ 200 mls/hr IV.SIG Q4H STEFFANIE Rx#:[id number] Oral 0 / 0 0 / 0 Tube Feeding 75 / 75 403 / 403 Tube Irrigant 30 / 30 Water Bolus Amount 237 / 237 600 / 600 Output: Urine 200 / 200 Urine Amount (Catheter) 250 / 250 Indwelling Urethral Catheter 250 / 250 Other: Date of Last Bowel Movement 04/30/18 # Bowel Movements 0 0 - Constitutional no acute distress - Routine HEENT Exam Eye: Present: EOMI - Routine Respiratory Exam Present: patient mechanically ventilated - Routine Cardiovascular Exam Present: RRR - Routine Abdominal Exam Present: soft, normoactive bowel sounds - Routine Extremities Exam Present: pulses intact - Urinary Catheter Management Condom Cath placed during this visit: no Indwelling Urethral Catheter Cath placed during this visit: yes Reason for continuing: Acute urinary retention Insertion date: 05/06/18 Insertion time: 16:40 Assessment and Plan - Assessment (1) Hypernatremia Code(s): E87.0 - Hyperosmolality and hypernatremia Status: Acute (2) Altered mental status Code(s): R41.82 - Altered mental status, unspecified Status: Acute (3) Endocarditis Code(s): I38 - Endocarditis, valve unspecified Status: Acute (4) Sepsis Code(s): A41.9 - Sepsis, unspecified organism Status: Acute Qualifiers: Sepsis type: sepsis due to unspecified organism Qualified Code(s): A41.9 - Sepsis, unspecified organism (5) Hyponatremia Code(s): E87.1 - Hypo-osmolality and hyponatremia Status: Acute - Plan Patient urine output has declined creatinine was 2.5 Monitor intake and output sodium slightly better 152 1/4 saline ordered Albumin 25 g every 12 hourly added Follow BMP
--- NOTE | 2018-05-08 15:40 | US ---
EXAM DATE: 05/08/2018 3:15 PM EDT AGE/SEX: 38 years / Male INDICATIONS: Increased Bun/Creatnine. CLINICAL DATA: This is the patient's initial encounter. Patient reports that signs and symptoms have been present for 1 day and indicates a pain score of 0/10. MEDICAL/SURGICAL HISTORY: Hepatitis C. Heroin abuse. None. COMPARISON: [facility] [place], CT ABDOMEN & PELVIS W CONTRAST, 04/30/2018. . MEASUREMENTS: Right Kidney:__11.9 x 4.7 x 6.5 cm Left Kidney:__11.0 x 5.1 x 6.0 cm FINDINGS: Right Kidney: Normal echotexture and cortical thickness. No mass or hydronephrosis. Trace perinephric fluid is seen. Left Kidney: Normal echotexture and cortical thickness. No mass or hydronephrosis. Bladder: [place] catheter is present. Bladder decompressed. Other: Small right pleural effusion is noted. CONCLUSION: 1. Trace perinephric fluid surrounding the right kidney. 2. Small right pleural effusion. 3. Otherwise normal sonographic appearance of the kidneys without evidence of hydronephrosis. Electronically signed by: Oli Lin MD 05/08/2018 3:39 PM EDT
[2018-05-08] MEDS: Multivitamin Inj 10 ML, Thiamine Inj 100 MG, Folic Acid Inj 1 MG in Sodium Chlor 0.9% I... IV.SIG SCH (17:23)
[2018-05-08] MEDS: Sodium Chloride 23.4% Inj 38.5 MEQ in Water for Inj, Sterile 1,000 ML IV.CONT SCH (17:38)
[2018-05-09] MEDS: Fosphenytoin Inj 100 MGPE in Sodium Chlor 0.9% Inj 50 ML IV.SIG SCH ×4 (00:05→23:55)
[2018-05-09] MEDS: Oral Hygiene Kit OROPHARYNG SCH ×5 (00:20→23:55)
[2018-05-09] MEDS: Insulin NovoLOG Aspart Correctional Sugar Inj SQ SCH ×4 (00:20→16:59)
[2018-05-09] MEDS: Albumin Human 25% Inj 100 ML IV.SIG SCH ×2 (02:37→14:40)
[2018-05-09] MEDS: Sodium Chloride 23.4% Inj 38.5 MEQ in Water for Inj, Sterile 1,000 ML IV.CONT SCH ×3 (03:45→14:41)
[2018-05-09 04:44] LABS: Hematocrit 26.7 % (39.0-51.0); Hemoglobin 8.8 gm/dL (13.0-17.0); Mean Corpuscular HGB Conc 32.9 % (32.0-36.0); Mean Corpuscular Hemoglobin 28.6 pg (27.0-34.0); Mean Corpuscular Volume 86.9 fL (80.0-100.0); Mean Platelet Volume 9.2 fL (7.0-11.0); Platelet Count 250 th/mm3 (150-450); Red Blood Count 3.08 mil/mm3 (4.50-5.90); Red Cell Distribution Width 15.2 % (11.6-17.2); White Blood Count 15.8 th/mm3 (4.0-11.0)
[2018-05-09 05:32] LABS: Alanine Aminotransferase 13 U/L (12-78); Albumin 2.5 g/dL (3.4-5.0); Alkaline Phosphatase 59 U/L (45-117); Anion Gap 15 meq/L (5-15); Aspartate Aminotransferase 18 U/L (15-37); Blood Urea Nitrogen 52 mg/dL (7-18); Calcium 7.5 mg/dL (8.5-10.1); Carbon Dioxide 19.2 meq/L (21.0-32.0); Chloride 120 meq/L (98-107); Glomerular Filtration Rate 22 mL/min (>89); Glucose,Random 86 mg/dL (74-106); Potassium 3.5 meq/L (3.5-5.1); Sodium 154 meq/L (136-145); Total Protein 6.6 g/dL (6.4-8.2)
--- NOTE | 2018-05-09 05:42 | XR ---
EXAM DATE: 05/09/2018 5:22 AM EDT AGE/SEX: 38 years / Male INDICATIONS: Shortness of breath. CLINICAL DATA: This is the patient's subsequent encounter. Patient reports that signs and symptoms h ave been present for 1 week and indicates a pain score of Nonresponsive. MEDICAL/SURGICAL HISTORY: . Hepatitis C. IVDA, Endocarditis. . Cardiac cath. COMPARISON: [facility], CHEST 1V SINGLE AP, 05/08/2018. . FINDINGS: Bilateral mostly basilar and perihilar airspace disease is similar to May 08. Endotracheal tube and nasogastric tube have been removed. No pneumothorax. CONCLUSION: Interval extubation. Relatively stable basilar airspace disease and pleural effusions. Electronically signed by: Jeferson Ram MD 05/09/2018 5:41 AM EDT
[2018-05-09] MEDS: Senna/Docusate Sodium 8.6/50 MG Tablet PO SCH ×2 (09:10→21:09)
[2018-05-09] MEDS: Chlorhexidine 0.12% Oral Kit 15 ML UDC OROPHARYNG SCH ×2 (09:10→21:21)
[2018-05-09] MEDS: Enoxaparin Inj 40 MG/0.4 ML Syringe SQ SCH (09:10)
[2018-05-09] MEDS: Hypromellose 0.3% Opth Gel 10 GM Bottle EACH EYE SCH ×2 (09:10→21:21)
[2018-05-09 10:53] LABS: ABG Base Excess -8.3 mmol/L (-2-2); ABG PCO2 30 mmHg (38-42); ABG PO2 94 mmHG (61-120)
[2018-05-09] MEDS ORDERED: Midazolam Inj 5 MG/ML 1 ML Vial ONE (13:42)
[2018-05-09] MEDS ORDERED: Etomidate Inj 40 MG/20 ML Vial IV.PUSH ONE (13:42)
--- NOTE | 2018-05-09 13:57 | P.PNCC ---
Subjective Subjective Remarks/Hospital Course: Patient is 38-year-old male with history of IV drug use, prev endocarditis, Hepatitis C, who presented to the emergency department via [facility] from [place] for acute psychosis and altered mental status. CT of the head done at [place] was negative for acute findings. Patient was very confused and delirious at [facility] ED. His last IV drug use of heroin was 5 days ago. Urine drug screen is pending at this time. ER workup showed multiple abnormalities, pertinent ones being a white count of 16.1 with left shift, troponin 3.24, lactic acid 3.1, CPK of 592, potassium of 3.1. Received 3 L of normal saline in the ED and was given Zosyn and vancomycin. I evaluated the patient in the emergency department. He is confused delirious oriented to person only. He is very tachycardic and dry. Patient appears very critical and septic. With IV drug use patient most likely has recurrence of infective endocarditis. Cardiology consult as well as ID consult had been requested. I will give additional 1 L fluid bolus and continue vancomycin and Zosyn. I will place on Precedex. 2D echo is pending at this time 05/01: Patient remains critically ill confused encephalopathy but slightly better speech. MRI of the brain is pending at this time. CT of the abdomen pelvis showed splenic infarct and probable inflammatory changes of the left perinephric space. CT chest shows bilateral infiltrates. WBC count is elevated 20.4 today. On broad-spectrum antibiotics per ID. Echo pending. MRI brain shows Multifocal bilateral punctate infarcts, suspicious for embolic disease. Blood cx positive 11/29 GPC 05/02: Patient intermittently agitated overnight, Precedex closely started. Currently, speech is improved. Echo official report pending but preliminary no vegetation seen. Will schedule AURELIA. Blood cultures growing staph aureus. Antibiotics narrowed to oxacillin by ID 05/03: Drowsy, easily arousable. remains orally intubated on mech ventilation. Subjective 05/06: Reconsulted due to acute altered desaturation on general medical floor. Currently 9% nonrebreather and speaking nonsensically. Patient is currently restrained to the bed with soft restraints. Decision made to intubate. Phone number in chart [phone] is not the mother. No other family available/ second tissue. Attempted to call his cell phone without results. 05/07: Remains intubated sedated very critical. WBC count increasing indicating worsening sepsis. Patient remains encephalopathy. Lumbar spine MRI showed large posterior subcutaneous fluid collection with enhancement-seroma or abscess. No evidence of osteomyelitis or discitis. IR to drain today with further fluid studies. There was questionable seizures overnight EEG preliminary no seizures. Continue fosphenytoin for now 05/08: Remains intubated, off sedation. Creat worsening 2.5 today, UO approx 250 ml in 24 hours despite hydration. Stop IVF, give 40 mg IV Lasix now. Tolerating CPAP , slightly tachypneic 05/09: Patient was extubated yesterday initially did well but currently very tachypneic hypoxemic chest x-ray shows bilateral infiltrate. Also BUN 52 creatinine has worsened to 3.2 with metabolic acidosis bicarb 16. Will attempt a short trial of BiPAP if not improving will proceed with endotracheal intubation. Scheduled with nephrology most likely will need to initiate hemodialysis. Objective Vital Signs / I&O: Vital Signs 05/08/18 14:00 05/08/18 14:30 05/08/18 15:00 Temperature Pulse Rate 86 86 88 Respiratory Rate 29 H 31 H 20 Blood Pressure 159/97 H 150/92 H 144/86 H Pulse Oximetry 99 97 97 05/08/18 15:30 05/08/18 15:53 05/08/18 16:00 Temperature 98.1 F Pulse Rate 88 87 88 Respiratory Rate 26 H 20 29 H Blood Pressure 139/70 136/83 Pulse Oximetry 98 05/08/18 16:30 05/08/18 17:00 05/08/18 17:30 Temperature Pulse Rate 84 92 H 87 Respiratory Rate 30 H 37 H 27 H Blood Pressure 140/80 140/82 Pulse Oximetry 70 L 91 L 94 L 05/08/18 18:00 05/08/18 18:01 05/08/18 18:30 Temperature Pulse Rate 88 88 87 Respiratory Rate 27 H 26 H 28 H Blood Pressure 164/85 H 142/99 H Pulse Oximetry 96 96 96 05/08/18 19:00 05/08/18 19:30 05/08/18 20:00 Temperature Pulse Rate 88 87 88 Respiratory Rate 12 19 34 H Blood Pressure 142/85 H 144/80 H 159/100 H Pulse Oximetry 95 96 97 05/08/18 20:07 05/08/18 20:30 05/08/18 21:00 Temperature 99.1 F Pulse Rate 86 91 H 87 Respiratory Rate 30 H 29 H 27 H Blood Pressure 157/99 H 154/90 H 146/89 H Pulse Oximetry 99 93 L 95 05/08/18 21:30 05/08/18 22:00 05/08/18 22:30 Temperature Pulse Rate 91 H 86 85 Respiratory Rate 30 H 28 H 29 H Blood Pressure 157/99 H 146/86 H 152/94 H Pulse Oximetry 94 L 94 L 95 05/08/18 23:00 05/08/18 23:30 05/09/18 00:00 Temperature 99.1 F Pulse Rate 83 83 82 Respiratory Rate 17 16 27 H Blood Pressure 149/90 H 153/95 H 152/88 H Pulse Oximetry 94 L 95 95 05/09/18 00:30 05/09/18 01:00 05/09/18 01:30 Temperature Pulse Rate 82 81 82 Respiratory Rate 23 30 H 29 H Blood Pressure 151/80 H 145/83 H 147/89 H Pulse Oximetry 94 L 93 L 92 L 05/09/18 02:00 05/09/18 02:30 05/09/18 03:00 Temperature Pulse Rate 82 80 81 Respiratory Rate 28 H 27 H 30 H Blood Pressure 134/79 140/90 148/90 H Pulse Oximetry 93 L 95 94 L 05/09/18 03:17 05/09/18 03:30 05/09/18 04:00 Temperature 98.8 F Pulse Rate 80 80 82 Respiratory Rate 21 27 H 28 H Blood Pressure 142/86 H 142/89 H Pulse Oximetry 96 93 L 05/09/18 07:15 05/09/18 08:00 05/09/18 11:05 Temperature 98.5 F Pulse Rate 83 83 Respiratory Rate 20 37 H Blood Pressure 157/100 H Pulse Oximetry 91 L 94 L 05/09/18 12:00 Temperature 98.5 F Pulse Rate 81 Respiratory Rate 19 Blood Pressure 149/99 H Pulse Oximetry 95 Intake & Output 05/08/18 05/09/18 05/09/18 18:59 06:59 18:59 Intake Total 1716 / 1716 1772.825 / 1772.825 200 / 200 Output Total 750 / 750 500 / 500 Balance 966 / 966 1272.825 / 1272.825 200 / 200 Weight 90.5 kg Intake: IV 1071 / 1071 1772.825 / 1772.825 200 / 200 Diprivan 1000 mg/100 ml Inj 1, 50 / 50 000 mg In 100 ml @ 5 MCG/KG/MIN 2.556 mls/hr IV.CONT TITRATE PRN Rx#:[id number] Sodium Chloride 23.4% Inj 38.5 1009.625 / 1009.625 MEQ In Sterile Water for Inj 1, 000 ML @ 84 mls/hr IV.CONT . Q12H2M STEFFANIE Rx#:[id number] Flexbumin 25% Inj 100 ML @ 60 100 / 100 100 / 100 mls/hr IV.SIG Q12H STEFFANIE Rx#: [id number] Cerebyx Inj 100 MGPE In NS Inj 104 / 104 52 / 52 50 ML @ 208 mls/hr IV.SIG Q8H STEFFANIE Rx#:[id number] MVI-12 Inj 10 ML Thiamine Inj 511.2 / 511.2 100 MG Folvite Inj 1 MG In NS Inj 500 ML @ 125 mls/hr IV.SIG Q24H STEFFANIE Rx#:[id number] Prostaphlin Inj 2 GM In NS Inj 300 / 300 200 / 200 100 / 100 100 ML @ 200 mls/hr IV.SIG Q4H STEFFANIE Rx#:[id number] Oral 0 / 0 0 / 0 Tube Feeding 45 / 45 Water Bolus Amount 600 / 600 Output: Urine 750 / 750 Urine Amount (Catheter) 500 / 500 Indwelling Urethral Catheter 500 / 500 Other: Date of Last Bowel Movement 05/08/18 05/08/18 05/09/18 # Bowel Movements 3 # Incontinent Bowel Movements 5 Result Diagrams: 05/09/18 04:05 05/09/18 04:05 Objective Remarks: GENERAL: 38-year-old male who is ill-appearing tachypneic encephalopathy SKIN: Warm/dry. Multiple tattoos. Multiple skin petechia with stigmata of septic emboli/[place] lesions HEAD: Atraumatic. Normocephalic. EYES: Pupils equal and round. No scleral icterus. Conjunctival splinter hemorrhages present ENT: No nasal bleeding or discharge. Mucous membranes dry. NECK: Trachea midline. No JVD. CARDIOVASCULAR: Tachycardic rate and rhythm. S1, S2 no S4. 1/6 systolic murmur appreciated. RESPIRATORY: +ve accessory muscle use. Bilateral significant expiratory wheezing and rhonchi. Tachypneic breathing 40 breaths per minute GASTROINTESTINAL: Abdomen soft, tenderness in epigastric region, nondistended. Hepatic and splenic margins not palpable. MUSCULOSKELETAL: No obvious deformities. No clubbing. NEUROLOGICAL: Patient is somnolent encephalopathy but wakes up follows basic commands. Respiratory status limits neuro exam Assessment and Plan - Assessment and Plan Plan: NEURO/Psych: Metabolic encephalopathy Multifocal bilateral frontal/parietal occipital and cerebellar punctate infarcts , likely septic emboli Polysubstance abuse with withdrawal Lumbar fluid collection/abscess -Currently off all sedation. If patient gets reintubated start back on propofol and fentanyl -MRI brain shows Multifocal bilateral punctate infarcts, suspicious for embolic disease. -Neurology Dr. Mike. Continue aspirin 81 mg daily -Supplement multivitamin thiamine and folic acid daily -Watch closely for signs of meningitis/brain abscess from septic emboli -Developed possible seizures, started on fosphenytoin -EEG-severe encephalopathy. IR attempted drain lumbar fluid collection-but on ultrasound there was no fluid collection RESP: Acute hypoxemic respiratory failure Pneumonia/septic emboli -Extubated 05/08/2018 currently tachypneic hypoxemic -If patient failed short trial of BiPAP will proceed with endotracheal intubation -Albuterol/ipratropium aerosols every 6 hours with albuterol aerosols every 2 hours as needed for dyspnea -Sputum culture negative to date. CT chest 04/30 shows bilateral infiltrates, repeat CT chest if reintubated CV: NSTEMI Mitral valve infective endocarditis Hypertension -(05/03) AURELIA with large mobile density on the anterior leaflet of mitral valve consistent with endocarditis (3cm x 1cm) -Continue aspirin 81 mg daily and carvedilol 3.25 mg twice daily. -As needed nicardipine drip -Avoid statins at this time due to hep C -Elevated troponin may be secondary to coronary artery septic emboli -Maintenance IV fluid 1/4 NS at 84 mL-we will hold due to worsening respiratory status -Give additional 60 mg IV Lasix 1 GI: Hepatitis C -IV famotidine 20 mg twice daily. Keep n.p.o. -Docusate sodium/senna 1 tablet twice daily for bowel regimen -Speech pathology consulted for speech evaluation and swallow evaluation Renal//FEN: Acute kidney injury Hypernatremia Hypopotassemia -Monitor renal function closely. -Magaña catheter. Accurate I's and O's -Replace electrolytes as clinically indicated per ICU electrolyte protocol -Free water 200 cc every 4 hours -Nephrology following, renal function worsening creatinine is 3.2 today. With worsening hypoxia and acidosis may need hemodialysis -Discussed with Dr. Lino ID: Severe sepsis Mitral valve infective endocarditis -Antibiotics with Oxacillin per ID -Blood culture with GPC 4 staph aureus -Recheck sputum culture 05/06-negative to date -Repeat blood urine and sputum culture today due to worsening leukocytosis and acidosis HEME: Leukocytosis Normocytic anemia -Monitor CBC, coags ENDO: -Electrolyte replacement per protocol -Sliding scale insulin with aspart insulin low regimen every 6 hours PROPH: -Bilateral lower extremity SCDs. famotidine. Enoxaparin 40 mg sq daily LINES: -Utilize peripheral IVs, central line if needed 45 minutes critical care time excluding procedures Remains critically ill with severe sepsis and systemic emboli with complication. Renal failure appears to be worsening creatinine is 3.2 with oliguria. Extubated but deteriorating respiratory function most likely will need reintubation Code Status: Full
[2018-05-09] MEDS ORDERED: Sodium Bicarbonate 8.4% Inj 50 MEQ/50 ML Syringe IV.PUSH ONE (14:00)
--- NOTE | 2018-05-09 14:33 | P.PCN ---
Date of procedure: 05/09/18 Pre-op diagnosis: Hypoxemic resp failure Post-op diagnosis: same Procedure: Endotracheal intubation Patient is tachypneic hypoxic, encephalopathic. Rapid sequence intubation was initiated. Patient was appropriately positioned and was administered etomidate 20 mg IV, Versed 5 mg IV, rocuronium 50 mg IV. I entered the oropharynx with direct laryngoscopy MAC 4 blade and obtained a grade 1 view. Patient was intubated with an 8.0 ET tube on single attempt. ET tube placement confirmed by directly visualizing the tube passing through the vocal cords, air entry equal bilaterally and, end-tidal CO2 color change. Patient tolerated procedure well. Postprocedure chest x-ray is pending at this time Anesthesia: GETA Surgeon: Bijan Arellano Estimated blood loss (mL): 0 Pathology: none sent Condition: critical Disposition: ICU
--- NOTE | 2018-05-09 15:01 | P.PNNP ---
Subjective Interval history: Patient remains on ventilatory Physical Exam Vital signs: Vital Signs 05/08/18 15:00 05/08/18 15:30 05/08/18 15:53 Temperature Pulse Rate 88 88 87 Respiratory Rate 20 26 H 20 Blood Pressure 144/86 H 139/70 Pulse Oximetry 97 05/08/18 16:00 05/08/18 16:30 05/08/18 17:00 Temperature 98.1 F Pulse Rate 88 84 92 H Respiratory Rate 29 H 30 H 37 H Blood Pressure 136/83 140/80 Pulse Oximetry 98 70 L 91 L 05/08/18 17:30 05/08/18 18:00 05/08/18 18:01 Temperature Pulse Rate 87 88 88 Respiratory Rate 27 H 27 H 26 H Blood Pressure 140/82 164/85 H Pulse Oximetry 94 L 96 96 05/08/18 18:30 05/08/18 19:00 05/08/18 19:30 Temperature Pulse Rate 87 88 87 Respiratory Rate 28 H 12 19 Blood Pressure 142/99 H 142/85 H 144/80 H Pulse Oximetry 96 95 96 05/08/18 20:00 05/08/18 20:07 05/08/18 20:30 Temperature 99.1 F Pulse Rate 88 86 91 H Respiratory Rate 34 H 30 H 29 H Blood Pressure 159/100 H 157/99 H 154/90 H Pulse Oximetry 97 99 93 L 05/08/18 21:00 05/08/18 21:30 05/08/18 22:00 Temperature Pulse Rate 87 91 H 86 Respiratory Rate 27 H 30 H 28 H Blood Pressure 146/89 H 157/99 H 146/86 H Pulse Oximetry 95 94 L 94 L 05/08/18 22:30 05/08/18 23:00 05/08/18 23:30 Temperature Pulse Rate 85 83 83 Respiratory Rate 29 H 17 16 Blood Pressure 152/94 H 149/90 H 153/95 H Pulse Oximetry 95 94 L 95 05/09/18 00:00 05/09/18 00:30 05/09/18 01:00 Temperature 99.1 F Pulse Rate 82 82 81 Respiratory Rate 27 H 23 30 H Blood Pressure 152/88 H 151/80 H 145/83 H Pulse Oximetry 95 94 L 93 L 05/09/18 01:30 05/09/18 02:00 05/09/18 02:30 Temperature Pulse Rate 82 82 80 Respiratory Rate 29 H 28 H 27 H Blood Pressure 147/89 H 134/79 140/90 Pulse Oximetry 92 L 93 L 95 05/09/18 03:00 05/09/18 03:17 05/09/18 03:30 Temperature Pulse Rate 81 80 80 Respiratory Rate 30 H 21 27 H Blood Pressure 148/90 H 142/86 H Pulse Oximetry 94 L 96 05/09/18 04:00 05/09/18 07:15 05/09/18 08:00 Temperature 98.8 F 98.5 F Pulse Rate 82 83 83 Respiratory Rate 28 H 20 37 H Blood Pressure 142/89 H 157/100 H Pulse Oximetry 93 L 91 L 05/09/18 11:05 05/09/18 12:00 05/09/18 14:13 Temperature 98.5 F Pulse Rate 81 Respiratory Rate 19 16 Blood Pressure 149/99 H Pulse Oximetry 94 L 95 97 Intake & Output 05/08/18 05/09/18 05/09/18 18:59 06:59 18:59 Intake Total 1716 / 1716 1772.825 / 1772.825 300 / 300 Output Total 750 / 750 500 / 500 Balance 966 / 966 1272.825 / 1272.825 300 / 300 Weight 90.5 kg Intake: IV 1071 / 1071 1772.825 / 1772.825 300 / 300 Diprivan 1000 mg/100 ml Inj 1, 50 / 50 000 mg In 100 ml @ 5 MCG/KG/MIN 2.556 mls/hr IV.CONT TITRATE PRN Rx#:[id number] Sodium Chloride 23.4% Inj 38.5 1009.625 / 1009.625 MEQ In Sterile Water for Inj 1, 000 ML @ 84 mls/hr IV.CONT . Q12H2M STEFFANIE Rx#:[id number] Flexbumin 25% Inj 100 ML @ 60 100 / 100 100 / 100 mls/hr IV.SIG Q12H STEFFANIE Rx#: [id number] Cerebyx Inj 100 MGPE In NS Inj 104 / 104 52 / 52 50 ML @ 208 mls/hr IV.SIG Q8H STEFFANIE Rx#:[id number] MVI-12 Inj 10 ML Thiamine Inj 511.2 / 511.2 100 MG Folvite Inj 1 MG In NS Inj 500 ML @ 125 mls/hr IV.SIG Q24H STEFFANIE Rx#:[id number] Prostaphlin Inj 2 GM In NS Inj 300 / 300 200 / 200 200 / 200 100 ML @ 200 mls/hr IV.SIG Q4H STEFFANIE Rx#:[id number] Oral 0 / 0 0 / 0 Tube Feeding 45 / 45 Water Bolus Amount 600 / 600 Output: Urine 750 / 750 Urine Amount (Catheter) 500 / 500 Indwelling Urethral Catheter 500 / 500 Other: Date of Last Bowel Movement 05/08/18 05/08/18 05/09/18 # Bowel Movements 3 # Incontinent Bowel Movements 5 Narrative: GENERAL: Patient confused with garbled speech. Moves all extremities. Exam unchanged. SKIN: Warm and dry. HEAD: Normocephalic. EYES: No scleral icterus. No injection or drainage. NECK: Supple, trachea midline. No JVD. CARDIOVASCULAR: Regular rate and rhythm without murmurs, gallops, or rubs. RESPIRATORY: Breath sounds equal bilaterally. No accessory muscle use. GASTROINTESTINAL: Abdomen soft, non-tender, nondistended. MUSCULOSKELETAL: No cyanosis, or edema. BACK: Nontender without obvious deformity. No CVA tenderness. - Urinary Catheter Management Condom Cath placed during this visit: no Indwelling Urethral Catheter Cath placed during this visit: yes Reason for continuing: Acute urinary retention Insertion date: 05/06/18 Insertion time: 16:40 Assessment and Plan - Assessment (1) Hypernatremia Code(s): E87.0 - Hyperosmolality and hypernatremia Status: Acute (2) Altered mental status Code(s): R41.82 - Altered mental status, unspecified Status: Acute (3) Endocarditis Code(s): I38 - Endocarditis, valve unspecified Status: Acute (4) Sepsis Code(s): A41.9 - Sepsis, unspecified organism Status: Acute Qualifiers: Sepsis type: sepsis due to unspecified organism Qualified Code(s): A41.9 - Sepsis, unspecified organism (5) Hyponatremia Code(s): E87.1 - Hypo-osmolality and hyponatremia Status: Acute - Plan Patient urine output has declined creatinine was 3.2 Monitor intake and output sodium worse at 154 1/4 saline ordered Albumin 25 g every 12 hourly on intermittent diuretics Lasix 60 mg given earlier Start Bumex 1 mg every 12 Patient oxygen requirements are increasing discussed with Dr. Arellano he will likely need hemodialysis and failed to respond to diuresis Follow BMP
--- NOTE | 2018-05-09 15:31 | XR ---
EXAM DATE: 05/09/2018 3:24 PM EDT AGE/SEX: 38 years / Male INDICATIONS: Intubation. CLINICAL DATA: This is the patient's subsequent encounter. Patient reports that signs and symptoms h ave been present for 1 week and indicates a pain score of Nonresponsive. MEDICAL/SURGICAL HISTORY: . Hepatitis C. IVDA. Endocarditis. . Cardiac Cath. COMPARISON: [facility], CHEST 1V SINGLE AP, 05/09/2018. . FINDINGS: Interval placement of an endotracheal and nasogastric tube is noted. Both tubes appear to be in appro priate position. Significant progression of diffuse patchy airspace disease has developed throughout both lungs. Haziness in the bases especially on the left suggests pleural fluid accumulation. CONCLUSION: Interval placement of endotracheal and nasogastric tubes which are in good position. Significant interval progression of diffuse airspace disease Electronically signed by: Oli Lin MD 05/09/2018 3:30 PM EDT
[2018-05-09] MEDS: Propofol 1000 mg/100 ml Inj 1,000 MG/100 ML BOTTLE IV.CONT PRN (17:36)
[2018-05-09] MEDS: fentaNYL 10 mcg/mL Premix Drip 2,500 MCG/250 ML BAG IV.SIG PRN (17:37)
[2018-05-10] MEDS: Propofol 1000 mg/100 ml Inj 1,000 MG/100 ML BOTTLE IV.CONT PRN ×2 (00:13→12:51)
[2018-05-10] MEDS: Insulin NovoLOG Aspart Correctional Sugar Inj SQ SCH ×5 (00:14→23:10)
[2018-05-10] MEDS: Albumin Human 25% Inj 100 ML IV.SIG SCH (03:27)
[2018-05-10] MEDS: Sodium Chloride 23.4% Inj 38.5 MEQ in Water for Inj, Sterile 1,000 ML IV.CONT SCH (03:27)
[2018-05-10] MEDS: Oral Hygiene Kit OROPHARYNG SCH ×4 (03:28→23:10)
[2018-05-10 04:16] LABS: Hematocrit 29.3 % (39.0-51.0); Hemoglobin 9.5 gm/dL (13.0-17.0); Mean Corpuscular HGB Conc 32.4 % (32.0-36.0); Mean Corpuscular Hemoglobin 28.2 pg (27.0-34.0); Mean Corpuscular Volume 86.9 fL (80.0-100.0); Platelet Count 296 th/mm3 (150-450); Red Blood Count 3.37 mil/mm3 (4.50-5.90); Red Cell Distribution Width 15.7 % (11.6-17.2); White Blood Count 18.3 th/mm3 (4.0-11.0)
[2018-05-10 04:49] LABS: Alanine Aminotransferase 11 U/L (12-78); Albumin 2.2 g/dL (3.4-5.0); Alkaline Phosphatase 60 U/L (45-117); Anion Gap 14 meq/L (5-15); Aspartate Aminotransferase 16 U/L (15-37); Blood Urea Nitrogen 63 mg/dL (7-18); Calcium 7.7 mg/dL (8.5-10.1); Carbon Dioxide 21.2 meq/L (21.0-32.0); Chloride 119 meq/L (98-107); Glomerular Filtration Rate 16 mL/min (>89); Glucose,Random 85 mg/dL (74-106); Potassium 3.9 meq/L (3.5-5.1); Sodium 154 meq/L (136-145); Total Protein 6.5 g/dL (6.4-8.2)
--- NOTE | 2018-05-10 05:39 | XR ---
EXAM DATE: 05/10/2018 5:10 AM EDT AGE/SEX: 38 years / Male INDICATIONS: Shortness of breath, possible pulmonary disease. CLINICAL DATA: This is the patient's subsequent encounter. Patient reports that signs and symptoms h ave been present for 1 week and indicates a pain score of Nonresponsive. MEDICAL/SURGICAL HISTORY: . Hepatitis C. IVDA. Endocarditis None. COMPARISON: [facility], CHEST 1V SINGLE AP, 05/09/2018. . FINDINGS: Patchy and nodular airspace disease is present with slight improvement at the bases compared with Sep tember 12. Heart size enlarged. Endotracheal tube and nasogastric tube remain present. CONCLUSION: Patchy and nodular airspace disease in both lungs stable to slight improvement at the bases since starr or exam. Trace pleural fluid. Electronically signed by: Jeferson Ram MD 05/10/2018 5:37 AM EDT
[2018-05-10] MEDS: Chlorhexidine 0.12% Oral Kit 15 ML UDC OROPHARYNG SCH ×2 (08:04→20:09)
[2018-05-10] MEDS: Fosphenytoin Inj 100 MGPE in Sodium Chlor 0.9% Inj 50 ML IV.SIG SCH ×3 (08:04→23:13)
[2018-05-10] MEDS: Senna/Docusate Sodium 8.6/50 MG Tablet PO SCH ×2 (08:05→20:09)
[2018-05-10] MEDS: Enoxaparin Inj 40 MG/0.4 ML Syringe SQ SCH (08:05)
[2018-05-10] MEDS: Hypromellose 0.3% Opth Gel 10 GM Bottle EACH EYE SCH ×2 (08:05→20:09)
[2018-05-10] MEDS ORDERED: Sod Chloride 0.9% Inj 1,000 ML IV.CONT PRN (11:18)
[2018-05-10] MEDS ORDERED: Heparin 10,000 UNITS/10 ML Vial (for IV use) OTHER PRN (11:18)
[2018-05-10] MEDS ORDERED: Sod Chloride 0.9% Inj 1,000 ML OTHER PRN ×2 (11:18)
[2018-05-10] MEDS ORDERED: Gelatin 12 MM/7 MM Topical Foam TOPICAL PRN (11:18)
[2018-05-10] MEDS ORDERED: Acetaminophen 325 MG Tablet PO PRN (11:18)
[2018-05-10] MEDS ORDERED: Albumin Human 25% Inj 100 ML IV.SIG PRN (11:18)
--- NOTE | 2018-05-10 11:21 | P.PNNP ---
Subjective Interval history: Patient remains on ventilator poor response to diuretics or IV fluids Physical Exam Vital signs: Vital Signs 05/09/18 12:00 05/09/18 14:13 05/09/18 15:44 Temperature 98.5 F Pulse Rate 81 72 Respiratory Rate 19 16 18 Blood Pressure 149/99 H Pulse Oximetry 95 97 05/09/18 16:00 05/09/18 16:01 05/09/18 16:02 Temperature 98.6 F Pulse Rate 69 69 69 Respiratory Rate 16 16 16 Blood Pressure 109/64 110/63 108/62 Pulse Oximetry 100 100 100 05/09/18 16:03 05/09/18 16:04 05/09/18 16:05 Temperature Pulse Rate 69 69 71 Respiratory Rate 16 16 16 Blood Pressure 108/61 107/60 110/68 Pulse Oximetry 100 100 100 05/09/18 19:39 05/09/18 20:00 05/09/18 22:00 Temperature 98.4 F Pulse Rate 74 72 74 Respiratory Rate 22 16 Blood Pressure 116/73 Pulse Oximetry 96 95 05/10/18 00:00 05/10/18 02:00 05/10/18 04:00 Temperature 98.5 F 98.3 F Pulse Rate 75 74 74 Respiratory Rate 21 16 Blood Pressure 132/79 125/76 Pulse Oximetry 100 100 05/10/18 04:12 05/10/18 06:00 05/10/18 07:46 Temperature Pulse Rate 72 69 68 Respiratory Rate 16 16 Blood Pressure Pulse Oximetry 99 100 Intake & Output 05/09/18 05/10/18 05/10/18 18:59 06:59 18:59 Intake Total 704 / 704 552 / 552 Output Total 350 / 350 225 / 225 Balance 354 / 354 327 / 327 Weight 90 kg Intake: IV 704 / 704 552 / 552 Diprivan 1000 mg/100 ml Inj 1, 100 / 100 000 mg In 100 ml @ 5 MCG/KG/MIN 2.556 mls/hr IV.CONT TITRATE PRN Rx#:[id number] Flexbumin 25% Inj 100 ML @ 60 200 / 200 100 / 100 mls/hr IV.SIG Q12H STEFFANIE Rx#: [id number] Cerebyx Inj 100 MGPE In NS Inj 104 / 104 52 / 52 50 ML @ 208 mls/hr IV.SIG Q8H STEFFANIE Rx#:[id number] Prostaphlin Inj 2 GM In NS Inj 400 / 400 300 / 300 100 ML @ 200 mls/hr IV.SIG Q4H STEFFANIE Rx#:[id number] Oral 0 / 0 0 / 0 Tube Feeding 0 / 0 0 / 0 Output: Urine 125 / 125 Urine Amount (Catheter) 350 / 350 Indwelling Urethral Catheter 350 / 350 Gastric Drainage 100 / 100 Right Nare Nasogastric Tube 100 / 100 Other: Date of Last Bowel Movement 05/09/18 05/09/18 05/09/18 # Incontinent Bowel Movements 1 Narrative: GENERAL: Patient confused with garbled speech. Moves all extremities. Exam unchanged. SKIN: Warm and dry. HEAD: Normocephalic. EYES: No scleral icterus. No injection or drainage. NECK: Supple, trachea midline. No JVD. CARDIOVASCULAR: Regular rate and rhythm without murmurs, gallops, or rubs. RESPIRATORY: Breath sounds equal bilaterally. No accessory muscle use. GASTROINTESTINAL: Abdomen soft, non-tender, nondistended. MUSCULOSKELETAL: No cyanosis, or edema. BACK: Nontender without obvious deformity. No CVA tenderness. - Urinary Catheter Management Condom Cath placed during this visit: no Indwelling Urethral Catheter Cath placed during this visit: yes Reason for continuing: Acute urinary retention Insertion date: 05/06/18 Insertion time: 16:40 Assessment and Plan - Assessment (1) Hypernatremia Code(s): E87.0 - Hyperosmolality and hypernatremia Status: Acute (2) Altered mental status Code(s): R41.82 - Altered mental status, unspecified Status: Acute (3) Endocarditis Code(s): I38 - Endocarditis, valve unspecified Status: Acute (4) Sepsis Code(s): A41.9 - Sepsis, unspecified organism Status: Acute Qualifiers: Sepsis type: sepsis due to unspecified organism Qualified Code(s): A41.9 - Sepsis, unspecified organism (5) Hyponatremia Code(s): E87.1 - Hypo-osmolality and hyponatremia Status: Acute - Plan Patient urine output has declined creatinine was 3.2 Monitor intake and output sodium worse at 154 1/4 saline Albumin 25 g every 12 hourly on intermittent diuretics On Bumex 1 mg every 12 Start hemodialysis today after Vas-Cath We will DC IV fluids and albumin Follow BMP
--- NOTE | 2018-05-10 13:17 | XR ---
EXAM DATE: 05/10/2018 1:09 PM EDT AGE/SEX: 38 years / Male INDICATIONS: Post vascath placement CLINICAL DATA: This is the patient's subsequent encounter. Patient reports that signs and symptoms h ave been present for 1 day and indicates a pain score of Nonresponsive. MEDICAL/SURGICAL HISTORY: Sepsis. Hepatitis C. endocarditis, IVDA None. COMPARISON: [facility], CHEST 1V SINGLE AP, 05/10/2018. . FINDINGS: Single view of the thorax demonstrates endotracheal tube the good position. As the Vas-Cath is in sat isfactory position. There is a nasogastric tube present with the tip overlying the stomach. The heart is enlarged. There is a small left basilar effusion. There are numerous nodular opacificati on seen overlying both chest. This would suggest possible septic emboli. CONCLUSION: Scattered nodular opacifications suggesting septic emboli. Small left basilar effusion. Support equipment in good position. Overall appearance of the chest is similar to previous. Electronically signed by: Vitaly Lentz MD 05/10/2018 1:15 PM EDT
--- NOTE | 2018-05-10 13:18 | P.PCN ---
Date of procedure: 05/10/18 Pre-op diagnosis: Worsening reanl failure Post-op diagnosis: same Procedure: US guided RIJ HD catheter placement Central line checklist completed, timeout completed. I wore a surgical cap, mask with protective eyewear, full gown and sterile gloves throughout the procedure. RIJ region was prepped using chlorhexidine scrub and draped in sterile fashion. Anesthesia was achieved over the vein using 1% lidocaine. Under direct US guidance, introducer needle was inserted into the RIJ vein and venous blood was withdrawn. The syringe was removed and a guidewire was advanced into the introducer needle, position confirmed with US. A small incision was made at the skin surface with a scalpel and the introducer needle was exchanged for a dilator over the guidewire. After appropriate dilation was obtained, the dilator was exchanged over the wire for a double lumen, 14F, 20 CM antibiotic coated central venous catheter. The wire was removed and the catheter was sutured in place at 18 cm. A sterile central line dressing was placed over the catheter at the insertion site. The patient tolerated the procedure without any hemodynamic compromise. At time of procedure completion, all ports aspirated and flushed properly. Post-procedure chest x-ray is pending at this time. Anesthesia: local Surgeon: Bijan Arellano Estimated blood loss (mL): 3 Pathology: none sent Condition: critical Disposition: ICU
--- NOTE | 2018-05-10 13:59 | P.PNCC ---
Subjective Subjective Remarks/Hospital Course: Patient is 38-year-old male with history of IV drug use, prev endocarditis, Hepatitis C, who presented to the emergency department via [facility] from [place] for acute psychosis and altered mental status. CT of the head done at [place] was negative for acute findings. Patient was very confused and delirious at [facility] ED. His last IV drug use of heroin was 5 days ago. Urine drug screen is pending at this time. ER workup showed multiple abnormalities, pertinent ones being a white count of 16.1 with left shift, troponin 3.24, lactic acid 3.1, CPK of 592, potassium of 3.1. Received 3 L of normal saline in the ED and was given Zosyn and vancomycin. I evaluated the patient in the emergency department. He is confused delirious oriented to person only. He is very tachycardic and dry. Patient appears very critical and septic. With IV drug use patient most likely has recurrence of infective endocarditis. Cardiology consult as well as ID consult had been requested. I will give additional 1 L fluid bolus and continue vancomycin and Zosyn. I will place on Precedex. 2D echo is pending at this time 05/01: Patient remains critically ill confused encephalopathy but slightly better speech. MRI of the brain is pending at this time. CT of the abdomen pelvis showed splenic infarct and probable inflammatory changes of the left perinephric space. CT chest shows bilateral infiltrates. WBC count is elevated 20.4 today. On broad-spectrum antibiotics per ID. Echo pending. MRI brain shows Multifocal bilateral punctate infarcts, suspicious for embolic disease. Blood cx positive 11/29 GPC 05/02: Patient intermittently agitated overnight, Precedex closely started. Currently, speech is improved. Echo official report pending but preliminary no vegetation seen. Will schedule AURELIA. Blood cultures growing staph aureus. Antibiotics narrowed to oxacillin by ID 05/03: Drowsy, easily arousable. remains orally intubated on mech ventilation. Subjective 05/06: Reconsulted due to acute altered desaturation on general medical floor. Currently 9% nonrebreather and speaking nonsensically. Patient is currently restrained to the bed with soft restraints. Decision made to intubate. Phone number in chart [phone] is not the mother. No other family available/ second tissue. Attempted to call his cell phone without results. 05/07: Remains intubated sedated very critical. WBC count increasing indicating worsening sepsis. Patient remains encephalopathy. Lumbar spine MRI showed large posterior subcutaneous fluid collection with enhancement-seroma or abscess. No evidence of osteomyelitis or discitis. IR to drain today with further fluid studies. There was questionable seizures overnight EEG preliminary no seizures. Continue fosphenytoin for now 05/08: Remains intubated, off sedation. Creat worsening 2.5 today, UO approx 250 ml in 24 hours despite hydration. Stop IVF, give 40 mg IV Lasix now. Tolerating CPAP , slightly tachypneic 05/09: Patient was extubated yesterday initially did well but currently very tachypneic hypoxemic chest x-ray shows bilateral infiltrate. Also BUN 52 creatinine has worsened to 3.2 with metabolic acidosis bicarb 16. Will attempt a short trial of BiPAP if not improving will proceed with endotracheal intubation. Scheduled with nephrology most likely will need to initiate hemodialysis. 05/10: Reintubated yesterday for severe respiratory distress and respiratory failure, remains critically ill. Currently intubated sedated. BUN/creatinine rising now BUN is 63 with a creatinine of 4.3. Oliguric urine output only 350 mL in 24 hours. WBC count is continues to increase 18.3 today with left shift. Chest x-ray shows evidence of scattered septic emboli Objective Vital Signs / I&O: Vital Signs 05/09/18 14:13 05/09/18 15:44 05/09/18 16:00 Temperature 98.6 F Pulse Rate 72 69 Respiratory Rate 16 18 16 Blood Pressure 109/64 Pulse Oximetry 97 100 05/09/18 16:01 05/09/18 16:02 05/09/18 16:03 Temperature Pulse Rate 69 69 69 Respiratory Rate 16 16 16 Blood Pressure 110/63 108/62 108/61 Pulse Oximetry 100 100 100 05/09/18 16:04 05/09/18 16:05 05/09/18 19:39 Temperature Pulse Rate 69 71 74 Respiratory Rate 16 16 22 Blood Pressure 107/60 110/68 Pulse Oximetry 100 100 96 05/09/18 20:00 05/09/18 22:00 05/10/18 00:00 Temperature 98.4 F 98.5 F Pulse Rate 72 74 75 Respiratory Rate 16 21 Blood Pressure 116/73 132/79 Pulse Oximetry 95 100 05/10/18 02:00 05/10/18 04:00 05/10/18 04:12 Temperature 98.3 F Pulse Rate 74 74 72 Respiratory Rate 16 16 Blood Pressure 125/76 Pulse Oximetry 100 99 05/10/18 06:00 05/10/18 07:00 05/10/18 07:30 Temperature Pulse Rate 69 70 69 Respiratory Rate 16 16 Blood Pressure 106/67 107/67 Pulse Oximetry 100 100 05/10/18 07:46 05/10/18 08:00 05/10/18 08:01 Temperature Pulse Rate 68 74 75 Respiratory Rate 16 15 Blood Pressure 123/77 Pulse Oximetry 100 96 95 05/10/18 08:30 05/10/18 09:00 05/10/18 09:13 Temperature Pulse Rate 72 68 67 Respiratory Rate 16 16 16 Blood Pressure 121/75 106/62 Pulse Oximetry 97 97 97 05/10/18 09:30 05/10/18 10:00 05/10/18 10:30 Temperature Pulse Rate 67 66 67 Respiratory Rate 16 16 Blood Pressure 105/62 106/65 111/69 Pulse Oximetry 96 96 96 05/10/18 11:00 05/10/18 11:35 Temperature Pulse Rate 71 Respiratory Rate 17 Blood Pressure 112/71 Pulse Oximetry 95 96 Intake & Output 05/09/18 05/10/18 05/10/18 18:59 06:59 18:59 Intake Total 704 / 704 552 / 552 335.625 / 335.625 Output Total 350 / 350 225 / 225 Balance 354 / 354 327 / 327 335.625 / 335.625 Weight 90 kg Intake: IV 704 / 704 552 / 552 335.625 / 335.625 Diprivan 1000 mg/100 ml Inj 1, 100 / 100 100 / 100 000 mg In 100 ml @ 5 MCG/KG/MIN 2.556 mls/hr IV.CONT TITRATE PRN Rx#:[id number] Sodium Chloride 23.4% Inj 38.5 83.625 / 83.625 MEQ In Sterile Water for Inj 1, 000 ML @ 84 mls/hr IV.CONT . Q12H2M [facility] Rx#:[id number] Flexbumin 25% Inj 100 ML @ 60 200 / 200 100 / 100 mls/hr IV.SIG Q12H [facility] Rx#: [id number] Cerebyx Inj 100 MGPE In NS Inj 104 / 104 52 / 52 52 / 52 50 ML @ 208 mls/hr IV.SIG Q8H [facility] Rx#:[id number] Prostaphlin Inj 2 GM In NS Inj 400 / 400 300 / 300 100 / 100 100 ML @ 200 mls/hr IV.SIG Q4H [facility] Rx#:[id number] Oral 0 / 0 0 / 0 Tube Feeding 0 / 0 0 / 0 Output: Urine 125 / 125 Urine Amount (Catheter) 350 / 350 Indwelling Urethral Catheter 350 / 350 Gastric Drainage 100 / 100 Right Nare Nasogastric Tube 100 / 100 Other: Date of Last Bowel Movement 05/09/18 05/09/18 05/09/18 # Incontinent Bowel Movements 1 Result Diagrams: 05/10/18 03:35 05/10/18 03:35 Objective Remarks: GENERAL: 38-year-old male who is ill-appearing tachypneic encephalopathic SKIN: Warm/dry. Multiple tattoos. Multiple skin petechia with stigmata of septic emboli/[place] lesions HEAD: Atraumatic. Normocephalic. EYES: Pupils equal and round. No scleral icterus. Conjunctival splinter hemorrhages present ENT: No nasal bleeding or discharge. Mucous membranes dry. NECK: Trachea midline. No JVD. CARDIOVASCULAR: Tachycardic rate and rhythm. S1, S2 no S4. 1/6 systolic murmur appreciated. RESPIRATORY: On PRVC/AC. Bilateral expiratory wheezing and rhonchi. GASTROINTESTINAL: Abdomen soft, tenderness in epigastric region, nondistended. MUSCULOSKELETAL: No obvious deformities. No clubbing. NEUROLOGICAL: Patient is intubated sedated with propofol and fentanyl. On lightening sedation patient wakes up follows commands briefly. No focal deficits Assessment and Plan - Assessment and Plan Plan: NEURO/Psych: Metabolic encephalopathy Multifocal bilateral frontal/parietal occipital and cerebellar punctate infarcts , likely septic emboli Polysubstance abuse with withdrawal -Sedated with propofol and fentanyl, able to follow commands on lightening sedation -MRI brain shows Multifocal bilateral punctate infarcts, suspicious for embolic disease. -Neurology Dr. Mike. Continue aspirin 81 mg daily -Supplement multivitamin thiamine and folic acid daily -Watch closely for signs of meningitis/brain abscess from septic emboli -Developed possible seizures, on fosphenytoin -EEG-severe encephalopathy. IR attempted drain lumbar fluid collection-but on ultrasound there was no fluid collection RESP: Acute hypoxemic respiratory failure Pneumonia/septic emboli -Extubated 05/08/2018, reintubated 05/09/2018 for worsening hypoxemic respiratory failure -Albuterol/ipratropium aerosols every 6 hours with albuterol aerosols every 2 hours as needed for dyspnea -Sputum culture negative to date. CT chest 04/30 shows bilateral infiltrates, repeat CT chest if reintubated -Chest x-ray shows numerous bilateral nodular infiltrates CV: NSTEMI Mitral valve infective endocarditis Hypertension -(05/03) AURELIA with large mobile density on the anterior leaflet of mitral valve consistent with endocarditis (3cm x 1cm) -Continue aspirin 81 mg daily and carvedilol 3.25 mg twice daily. -As needed nicardipine drip -Avoid statins at this time due to hep C -Elevated troponin may be secondary to coronary artery septic emboli -Discontinue IV fluids and IV diuretics as the patient is getting started on hemodialysis today GI: Hepatitis C -IV famotidine 20 mg twice daily. Change tube feeds to Nepro -Docusate sodium/senna 1 tablet twice daily for bowel regimen -Speech pathology consulted for speech evaluation and swallow evaluation Renal//FEN: Acute kidney injury Hypernatremia Hyperkalemia -BUN/creatinine worsening with oliguria despite medical therapy -Place Vas-Cath to start hemodialysis -Monitor renal function closely. [place] catheter. Accurate I's and O's -Replace electrolytes as clinically indicated per ICU electrolyte protocol --Discussed with Dr. Lino ID: Severe sepsis Mitral valve infective endocarditis -Antibiotics with Oxacillin per ID -Blood culture with GPC 4 staph aureus -Repeat blood urine and sputum culture sent HEME: Leukocytosis Normocytic anemia -Monitor CBC, coags ENDO: -Electrolyte replacement per protocol -Sliding scale insulin with aspart insulin low regimen every 6 hours PROPH: -Bilateral lower extremity SCDs. famotidine. Enoxaparin 40 mg sq daily LINES: -Utilize peripheral IVs, central line if needed 35 minutes critical care time excluding procedures Remains critically ill with severe sepsis and systemic emboli with complication. Renal failure appears to be worsening creatinine is 4.3 with oliguria. Reintubated yesterday, Place Vas-Cath a stat hemodialysis. Prognosis is guarded.
[2018-05-10 16:06] LABS: Hepatitits B Surface Antigen Nonreactive (Nonreactive)
[2018-05-10 16:42] LABS: Hepatitis A IgM Antibody Nonreactive (Nonreactive)
--- NOTE | 2018-05-10 20:39 | P.PNID ---
Subjective Remarks: On vent , reintubated afebrile Large fluid collection was not seen on attempted US guided drainage UOP is minimal Now on HD 2 L were removed no more positive blood clx Antibiotics: oxacillin Past Medical History: IVDU Allergies/Adverse Reactions: Allergies No Known Allergies Allergy (Unknown, Uncoded 07/13/17 00:28) Objective Vital Signs 05/09/18 22:00 05/10/18 00:00 05/10/18 02:00 Temperature 98.5 F Pulse Rate 74 75 74 Respiratory Rate 21 Blood Pressure 132/79 Pulse Oximetry 100 05/10/18 04:00 05/10/18 04:12 05/10/18 06:00 Temperature 98.3 F Pulse Rate 74 72 69 Respiratory Rate 16 16 Blood Pressure 125/76 Pulse Oximetry 100 99 05/10/18 07:00 05/10/18 07:30 05/10/18 07:46 Temperature Pulse Rate 70 69 68 Respiratory Rate 16 16 16 Blood Pressure 106/67 107/67 Pulse Oximetry 100 100 100 05/10/18 08:00 05/10/18 08:01 05/10/18 08:30 Temperature Pulse Rate 74 75 72 Respiratory Rate 15 16 Blood Pressure 123/77 121/75 Pulse Oximetry 96 95 97 05/10/18 09:00 05/10/18 09:13 05/10/18 09:30 Temperature Pulse Rate 68 67 67 Respiratory Rate 16 16 16 Blood Pressure 106/62 105/62 Pulse Oximetry 97 97 96 05/10/18 10:00 05/10/18 10:30 05/10/18 11:00 Temperature Pulse Rate 66 67 71 Respiratory Rate 16 Blood Pressure 106/65 111/69 112/71 Pulse Oximetry 96 96 95 05/10/18 11:35 05/10/18 12:00 05/10/18 13:13 Temperature Pulse Rate 69 Respiratory Rate 17 Blood Pressure 103/57 L Pulse Oximetry 96 05/10/18 13:14 05/10/18 13:15 05/10/18 13:16 Temperature Pulse Rate 67 67 67 Respiratory Rate Blood Pressure 101/55 L 102/56 L 108/62 Pulse Oximetry 96 96 97 05/10/18 13:18 05/10/18 13:19 05/10/18 13:20 Temperature Pulse Rate 71 68 67 Respiratory Rate 18 16 16 Blood Pressure 109/63 104/64 101/59 L Pulse Oximetry 96 96 96 05/10/18 13:21 05/10/18 13:22 05/10/18 13:23 Temperature Pulse Rate 67 66 66 Respiratory Rate 16 18 20 Blood Pressure 103/58 L 102/57 L 102/57 L Pulse Oximetry 96 96 96 05/10/18 13:24 05/10/18 13:25 05/10/18 13:26 Temperature Pulse Rate 66 67 67 Respiratory Rate 22 20 19 Blood Pressure 102/57 L 104/57 L 101/57 L Pulse Oximetry 96 97 96 05/10/18 13:27 05/10/18 13:28 05/10/18 13:29 Temperature Pulse Rate 67 67 69 Respiratory Rate 19 16 21 Blood Pressure 102/57 L 102/56 L 91/58 L Pulse Oximetry 96 96 97 05/10/18 13:30 05/10/18 13:31 05/10/18 13:32 Temperature Pulse Rate 68 67 67 Respiratory Rate 16 16 16 Blood Pressure 103/62 104/63 105/64 Pulse Oximetry 97 97 97 05/10/18 13:33 05/10/18 13:34 05/10/18 13:35 Temperature Pulse Rate 66 66 66 Respiratory Rate 16 16 19 Blood Pressure 104/62 105/62 104/60 Pulse Oximetry 97 97 97 05/10/18 13:36 05/10/18 13:38 05/10/18 14:00 Temperature Pulse Rate 72 75 71 Respiratory Rate Blood Pressure 136/74 135/79 Pulse Oximetry 96 96 97 05/10/18 14:01 05/10/18 14:30 05/10/18 15:00 Temperature Pulse Rate 75 72 70 Respiratory Rate 16 Blood Pressure 113/79 125/78 122/79 Pulse Oximetry 95 97 97 05/10/18 15:30 05/10/18 15:36 05/10/18 16:00 Temperature 97.8 F Pulse Rate 71 74 70 Respiratory Rate 17 16 Blood Pressure 121/75 Pulse Oximetry 97 96 96 05/10/18 16:01 05/10/18 16:30 05/10/18 18:00 Temperature Pulse Rate 73 75 80 Respiratory Rate 23 Blood Pressure 104/77 133/79 Pulse Oximetry 96 96 05/10/18 19:43 05/10/18 19:46 Temperature Pulse Rate 80 Respiratory Rate 16 16 Blood Pressure Pulse Oximetry 97 Intake & Output 05/10/18 05/10/18 05/11/18 06:59 18:59 06:59 Intake Total 552 / 552 612.625 / 612.625 Output Total 225 / 225 2125 / 2125 Balance 327 / 327 -1512.375 / -1512.375 Weight 90 kg Intake: IV 552 / 552 587.625 / 587.625 Diprivan 1000 mg/100 ml Inj 1, 100 / 100 100 / 100 000 mg In 100 ml @ 5 MCG/KG/MIN 2.556 mls/hr IV.CONT TITRATE PRN Rx#:[id number] Sodium Chloride 23.4% Inj 38.5 83.625 / 83.625 MEQ In Sterile Water for Inj 1, 000 ML @ 84 mls/hr IV.CONT . Q12H2M [facility] Rx#:[id number] Flexbumin 25% Inj 100 ML @ 60 100 / 100 mls/hr IV.SIG Q12H [facility] Rx#: [id number] Cerebyx Inj 100 MGPE In NS Inj 52 / 52 104 / 104 50 ML @ 208 mls/hr IV.SIG Q8H [facility] Rx#:[id number] Prostaphlin Inj 2 GM In NS Inj 300 / 300 300 / 300 100 ML @ 200 mls/hr IV.SIG Q4H [facility] Rx#:[id number] Oral 0 / 0 Tube Feeding 0 / 0 25 / 25 Output: Urine 125 / 125 125 / 125 Hemodialysis Amount 1999 / 1999 Gastric Drainage 100 / 100 Right Nare Nasogastric Tube 100 / 100 Other: Date of Last Bowel Movement 05/09/18 05/09/18 05/09/18 17:00 Sputum - Endotracheal Gram Stain - Final 05/09/18 17:00 Sputum - Endotracheal Sputum Culture - Preliminary Immature growth - reincubate 05/09/18 17:00 Catheterized Urine Urine Culture - Preliminary No growth in 24 hours 05/09/18 14:27 Blood - Peripheral Aerobic Blood Culture - Preliminary No growth in 1 day 05/09/18 14:27 Blood - Peripheral Anaerobic Blood Culture - Preliminary No growth in 1 day 05/09/18 14:33 Blood - Peripheral Aerobic Blood Culture - Preliminary No growth in 1 day 05/09/18 14:33 Blood - Peripheral Anaerobic Blood Culture - Preliminary No growth in 1 day 05/06/18 16:50 Sputum - Endotracheal Gram Stain - Final 05/06/18 16:50 Sputum - Endotracheal Sputum Culture - Final Heavy growth normal respiratory hai Lab - Hematology Results 05/09/18 05/10/18 04:05 03:35 WBC 15.8 H 18.3 H RBC 3.08 L 3.37 L Hgb 8.8 L 9.5 L Hct 26.7 L 29.3 L MCV 86.9 86.9 MCH 28.6 28.2 MCHC 32.9 32.4 RDW 15.2 15.7 Plt Count 250 296 MPV 9.2 9.0 Lab - Chemistry Results 05/09/18 05/09/18 05/09/18 00:04 04:05 05:54 Sodium 154 H Potassium 3.5 Chloride 120 H Carbon Dioxide 19.2 L Anion Gap 15 BUN 52 H Creatinine 3.21 H Estimated GFR 22 L POC Glucose 87 87 Random Glucose 86 Calcium 7.5 L Total Bilirubin 0.8 AST 18 ALT 13 Alkaline Phosphatase 59 Total Protein 6.6 D Albumin 2.5 L D 05/09/18 05/09/18 05/09/18 10:59 16:17 23:58 Sodium Potassium Chloride Carbon Dioxide Anion Gap BUN Creatinine Estimated GFR POC Glucose 94 78 96 Random Glucose Calcium Total Bilirubin AST ALT Alkaline Phosphatase Total Protein Albumin 05/10/18 05/10/18 05/10/18 03:35 05:39 11:11 Sodium 154 H Potassium 3.9 Chloride 119 H Carbon Dioxide 21.2 Anion Gap 14 BUN 63 H Creatinine 4.28 H Estimated GFR 16 L POC Glucose 99 83 Random Glucose 85 Calcium 7.7 L Total Bilirubin 0.6 AST 16 ALT 11 L Alkaline Phosphatase 60 Total Protein 6.5 Albumin 2.2 L 05/10/18 18:25 Sodium Potassium Chloride Carbon Dioxide Anion Gap BUN Creatinine Estimated GFR POC Glucose 88 Random Glucose Calcium Total Bilirubin AST ALT Alkaline Phosphatase Total Protein Albumin Imaging: ITS Impressions Chest CT 04/30/18 00:00 CONCLUSION: 1. Parenchymal process bilaterally most likely inflammatory and pneumonia. Abdomen/Pelvis CT 04/30/18 08:48 CONCLUSION: 1. 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 2. Haziness in the anterior margins of the perinephric space at the junction of the spleen possibly inflammatory process of uncertain etiology. Head MRI 05/01/18 00:00 CONCLUSION: 1. Multifocal bilateral punctate infarcts, suspicious for embolic disease. 2. No midline shift or mass effect. Lumbar Spine MRI 05/06/18 00:00 CONCLUSION: 1. Large posterior subcutaneous fluid collection with enhancement. This could represent a seroma or abscess. 2. No evidence of osteomyelitis or discitis. Thoracic Spine MRI 05/06/18 00:00 CONCLUSION: 1. Negative thoracic MRI with no evidence of osteomyelitis or discitis. 2. Please see lumbar spine MRI for further details on findings in this region. Head CT 05/06/18 15:42 CONCLUSION: 1. No acute hemorrhage or mass effect. 2. The small bilateral known punctate infarcts seen on the MRI are not distinctly visualized. 3. Mucosal thickening in the ethmoidal air cells, sphenoid sinus and both maxillary sinuses. Abdomen/Bladder Ultrasound 05/08/18 00:00 CONCLUSION: 1. Trace perinephric fluid surrounding the right kidney. 2. Small right pleural effusion. 3. Otherwise normal sonographic appearance of the kidneys without evidence of hydronephrosis. Chest X-Ray 05/10/18 12:40 CONCLUSION: Scattered nodular opacifications suggesting septic emboli. Small left basilar effusion. Support equipment in good position. Overall appearance of the chest is similar to previous. Physical Exam: GENERAL: NAD Intubated. SKIN: Warm and dry. extensive petechial and [place]ay lesions HEAD: Atraumatic. Normocephalic. EYES: Pupils equal and round. No scleral icterus. No injection or drainage. numerous conjunctival hmrgs ENT: No nasal bleeding or discharge. Mucous membranes pink and moist. NECK: Trachea midline. No JVD. CARDIOVASCULAR: Regular rate and rhythm. RESPIRATORY: No accessory muscle use. Clear to auscultation. Breath sounds equal bilaterally. GASTROINTESTINAL: Abdomen soft, non-tender, nondistended. Hepatic and splenic margins not palpable. MUSCULOSKELETAL: Extremities without clubbing, cyanosis, or edema. No obvious deformities. NEUROLOGICAL: Obtunded not follows commands PSYCHIATRIC: unable to assess Assessment and Plan - Plan mitral valve endocariditis with a 3 cm vegetations Multiple embolic strokes Elevated troponin brain septic emboli Pt has difficulty speaking which appear new (per 06/2017 record he had clear speech) and per RN got worse thru the shift CT head w/o c negative @ 2300 BRENDA, - NEW urine eosinophils+ Back pain in the settings of large vegetation on mitral valve acute VDRF NEW :Soft tissue abscess L area - not present - start cefazoline adjusted renally - dc oxacilin monitor creatinine, LFTs, CBC dw RN
[2018-05-11 04:49] LABS: Calcium 6.1 mg/dL (8.5-10.1); Carbon Dioxide 25.5 meq/L (21.0-32.0); Potassium 3.8 meq/L (3.5-5.1)
[2018-05-11] MEDS: Insulin NovoLOG Aspart Correctional Sugar Inj SQ SCH ×4 (05:08→23:49)
[2018-05-11] MEDS: Oral Hygiene Kit OROPHARYNG SCH ×4 (05:08→23:49)
[2018-05-11] MEDS: Fosphenytoin Inj 100 MGPE in Sodium Chlor 0.9% Inj 50 ML IV.SIG SCH ×3 (08:11→23:48)
[2018-05-11] MEDS: Enoxaparin Inj 40 MG/0.4 ML Syringe SQ SCH (08:11)
[2018-05-11] MEDS: Hypromellose 0.3% Opth Gel 10 GM Bottle EACH EYE SCH (08:13)
[2018-05-11] MEDS: Chlorhexidine 0.12% Oral Kit 15 ML UDC OROPHARYNG SCH ×2 (08:13→19:22)
[2018-05-11] MEDS: Senna/Docusate Sodium 8.6/50 MG Tablet PO SCH ×2 (08:13→20:37)
[2018-05-11] MEDS: Propofol 1000 mg/100 ml Inj 1,000 MG/100 ML BOTTLE IV.CONT PRN (12:18)
[2018-05-11] MEDS: fentaNYL 10 mcg/mL Premix Drip 2,500 MCG/250 ML BAG IV.SIG PRN (12:20)
--- NOTE | 2018-05-11 16:12 | P.PNNP ---
Subjective Interval history: Patient is seen during dialysis on ventilator Physical Exam Vital signs: Vital Signs 05/10/18 16:30 05/10/18 17:00 05/10/18 17:19 Temperature Pulse Rate 75 76 77 Respiratory Rate 23 20 19 Blood Pressure 133/79 138/88 142/88 H Pulse Oximetry 96 96 97 05/10/18 17:30 05/10/18 17:45 05/10/18 18:00 Temperature Pulse Rate 80 79 79 Respiratory Rate 20 21 17 Blood Pressure 144/92 H 144/94 H 143/93 H Pulse Oximetry 97 97 97 05/10/18 18:15 05/10/18 18:30 05/10/18 18:45 Temperature Pulse Rate 79 79 78 Respiratory Rate 16 18 16 Blood Pressure 153/95 H 149/94 H 141/87 H Pulse Oximetry 97 97 97 05/10/18 19:00 05/10/18 19:15 05/10/18 19:30 Temperature Pulse Rate 85 81 82 Respiratory Rate 20 17 14 Blood Pressure 146/91 H 141/95 H 145/96 H Pulse Oximetry 97 97 97 05/10/18 19:43 05/10/18 19:46 05/10/18 20:00 Temperature Pulse Rate 82 86 Respiratory Rate 16 15 7 L Blood Pressure 143/89 H Pulse Oximetry 97 97 87 L 05/10/18 20:01 05/10/18 20:03 05/10/18 20:15 Temperature 99.1 F Pulse Rate 86 84 87 Respiratory Rate 8 L 24 20 Blood Pressure 179/104 H 167/90 H 153/87 H Pulse Oximetry 95 99 97 05/10/18 20:30 05/10/18 20:45 05/10/18 21:00 Temperature Pulse Rate 89 86 82 Respiratory Rate 18 19 16 Blood Pressure 151/91 H 152/98 H 139/77 Pulse Oximetry 96 97 97 05/10/18 21:15 05/10/18 21:31 05/10/18 21:45 Temperature Pulse Rate 82 83 80 Respiratory Rate 16 16 16 Blood Pressure 138/80 139/90 131/77 Pulse Oximetry 97 96 96 05/10/18 22:00 05/10/18 22:15 05/10/18 22:31 Temperature Pulse Rate 81 82 82 Respiratory Rate 16 16 15 Blood Pressure 128/79 136/82 131/86 Pulse Oximetry 97 96 96 05/10/18 22:45 05/10/18 23:00 05/10/18 23:15 Temperature Pulse Rate 81 82 81 Respiratory Rate 16 16 16 Blood Pressure 135/85 130/82 127/77 Pulse Oximetry 96 96 97 05/10/18 23:30 05/10/18 23:40 05/10/18 23:45 Temperature Pulse Rate 83 84 Respiratory Rate 16 16 16 Blood Pressure 128/78 122/73 Pulse Oximetry 97 97 97 05/11/18 00:00 05/11/18 00:15 05/11/18 00:30 Temperature 100.2 F H Pulse Rate 81 80 79 Respiratory Rate 16 16 16 Blood Pressure 119/68 118/69 116/68 Pulse Oximetry 97 96 97 05/11/18 00:45 05/11/18 01:00 05/11/18 01:15 Temperature Pulse Rate 78 77 76 Respiratory Rate 16 16 16 Blood Pressure 113/65 114/67 109/64 Pulse Oximetry 96 97 97 05/11/18 01:30 05/11/18 01:45 05/11/18 02:00 Temperature Pulse Rate 76 74 75 Respiratory Rate 16 16 16 Blood Pressure 112/66 106/65 122/72 Pulse Oximetry 97 97 97 05/11/18 02:15 05/11/18 02:30 05/11/18 02:48 Temperature Pulse Rate 74 80 87 Respiratory Rate 16 14 24 Blood Pressure 118/69 134/81 149/92 H Pulse Oximetry 97 95 100 05/11/18 03:00 05/11/18 03:48 05/11/18 03:49 Temperature Pulse Rate 80 74 Respiratory Rate 16 17 16 Blood Pressure Pulse Oximetry 99 100 05/11/18 04:00 05/11/18 04:04 05/11/18 05:00 Temperature 99.3 F Pulse Rate 73 83 83 Respiratory Rate 16 16 14 Blood Pressure 142/93 H 140/89 Pulse Oximetry 99 100 100 05/11/18 06:00 05/11/18 07:00 05/11/18 07:15 Temperature Pulse Rate 73 75 76 Respiratory Rate 15 16 Blood Pressure 128/76 Pulse Oximetry 100 100 05/11/18 08:00 05/11/18 09:00 05/11/18 10:00 Temperature Pulse Rate 83 79 81 Respiratory Rate 20 16 19 Blood Pressure 149/91 H 144/83 H 139/93 H Pulse Oximetry 100 100 100 05/11/18 10:33 05/11/18 11:00 05/11/18 12:00 Temperature 99.2 F Pulse Rate 80 80 Respiratory Rate 19 19 16 Blood Pressure 139/88 133/82 Pulse Oximetry 100 100 100 05/11/18 14:00 05/11/18 14:15 05/11/18 15:37 Temperature Pulse Rate 80 Respiratory Rate 18 20 Blood Pressure Pulse Oximetry 100 100 05/11/18 15:40 Temperature Pulse Rate 87 Respiratory Rate 19 Blood Pressure Pulse Oximetry Intake & Output 05/10/18 05/11/18 05/11/18 18:59 06:59 18:59 Intake Total 612.625 / 612.625 152 / 152 392 / 392 Output Total 2125 / 2125 Balance -1512.375 / -1512.375 152 / 152 392 / 392 Weight 88.451 kg Intake: IV 587.625 / 587.625 152 / 152 392 / 392 Diprivan 1000 mg/100 ml Inj 1, 100 / 100 90 / 90 000 mg In 100 ml @ 5 MCG/KG/MIN 2.556 mls/hr IV.CONT TITRATE PRN Rx#:[id number] Sodium Chloride 23.4% Inj 38.5 83.625 / 83.625 MEQ In Sterile Water for Inj 1, 000 ML @ 84 mls/hr IV.CONT . Q12H2M STEFFANIE Rx#:[id number] Cerebyx Inj 100 MGPE In NS Inj 104 / 104 52 / 52 52 / 52 50 ML @ 208 mls/hr IV.SIG Q8H STEFFANIE Rx#:[id number] Prostaphlin Inj 2 GM In NS Inj 300 / 300 100 ML @ 200 mls/hr IV.SIG Q4H STEFFANIE Rx#:[id number] Ancef Inj 1,000 MG In NS Inj 100 / 100 100 ML @ 200 mls/hr IV.SIG Q24H STEFFANIE Rx#:[id number] fentaNYL 10 mcg/mL Premix Drip 250 / 250 2,500 mcg In 250 ml @ 50 MCG/HR 5 mls/hr IV.SIG TITRATE PRN Rx #:[id number] Tube Feeding 25 / 25 Output: Urine 125 / 125 Hemodialysis Amount 1999 Other: Date of Last Bowel Movement 05/09/18 05/09/18 05/09/18 # Bowel Movements 0 - Routine HEENT Exam Eye: Present: EOMI - Routine Neck Exam Present: supple - Routine Respiratory Exam Present: CTA bilaterally - Routine Cardiovascular Exam Present: RRR - Routine Abdominal Exam Present: soft, normoactive bowel sounds - Routine Extremities Exam Present: full ROM - Urinary Catheter Management Condom Cath placed during this visit: no Indwelling Urethral Catheter Cath placed during this visit: yes Reason for continuing: Acute urinary retention Insertion date: 05/06/18 Insertion time: 16:40 Assessment and Plan - Assessment (1) Hypernatremia Code(s): E87.0 - Hyperosmolality and hypernatremia Status: Acute (2) Altered mental status Code(s): R41.82 - Altered mental status, unspecified Status: Acute (3) Endocarditis Code(s): I38 - Endocarditis, valve unspecified Status: Acute (4) Sepsis Code(s): A41.9 - Sepsis, unspecified organism Status: Acute Qualifiers: Sepsis type: sepsis due to unspecified organism Qualified Code(s): A41.9 - Sepsis, unspecified organism (5) Hyponatremia Code(s): E87.1 - Hypo-osmolality and hyponatremia Status: Acute - Plan Patient urine output has declined creatinine better after dialysis Hemodialysis started doing better next dialysis tomorrow Extra dialysis to see if we can wean him off the ventilator Patient has endocarditis mitral valve involvement and septic emboli Monitor intake and output sodium about same 154 Follow BMP
[2018-05-11] MEDS: Heparin 10,000 UNITS/10 ML Vial (for IV use) OTHER PRN (16:58)
[2018-05-11] MEDS: Carboxymethylcellulose 0.5% Opth Drops 15 ML Bottle EACH EYE SCH ×2 (17:38→23:48)
--- NOTE | 2018-05-11 17:56 | P.PNCC ---
Subjective Subjective Remarks/Hospital Course: Patient is 38-year-old male with history of IV drug use, prev endocarditis, Hepatitis C, who presented to the emergency department via [facility] from [place] for acute psychosis and altered mental status. CT of the head done at [place] was negative for acute findings. Patient was very confused and delirious at [facility] ED. His last IV drug use of heroin was 5 days ago. Urine drug screen is pending at this time. ER workup showed multiple abnormalities, pertinent ones being a white count of 16.1 with left shift, troponin 3.24, lactic acid 3.1, CPK of 592, potassium of 3.1. Received 3 L of normal saline in the ED and was given Zosyn and vancomycin. I evaluated the patient in the emergency department. He is confused delirious oriented to person only. He is very tachycardic and dry. Patient appears very critical and septic. With IV drug use patient most likely has recurrence of infective endocarditis. Cardiology consult as well as ID consult had been requested. I will give additional 1 L fluid bolus and continue vancomycin and Zosyn. I will place on Precedex. 2D echo is pending at this time 05/01: Patient remains critically ill confused encephalopathy but slightly better speech. MRI of the brain is pending at this time. CT of the abdomen pelvis showed splenic infarct and probable inflammatory changes of the left perinephric space. CT chest shows bilateral infiltrates. WBC count is elevated 20.4 today. On broad-spectrum antibiotics per ID. Echo pending. MRI brain shows Multifocal bilateral punctate infarcts, suspicious for embolic disease. Blood cx positive 11/29 GPC 05/02: Patient intermittently agitated overnight, Precedex closely started. Currently, speech is improved. Echo official report pending but preliminary no vegetation seen. Will schedule AURELIA. Blood cultures growing staph aureus. Antibiotics narrowed to oxacillin by ID 05/03: Drowsy, easily arousable. remains orally intubated on mech ventilation. 05/06: Reconsulted due to acute altered desaturation on general medical floor. Currently 9% nonrebreather and speaking nonsensically. Patient is currently restrained to the bed with soft restraints. Decision made to intubate. Phone number in chart [phone] is not the mother. No other family available/ second tissue. Attempted to call his cell phone without results. 05/07: Remains intubated sedated very critical. WBC count increasing indicating worsening sepsis. Patient remains encephalopathy. Lumbar spine MRI showed large posterior subcutaneous fluid collection with enhancement-seroma or abscess. No evidence of osteomyelitis or discitis. IR to drain today with further fluid studies. There was questionable seizures overnight EEG preliminary no seizures. Continue fosphenytoin for now 05/08: Remains intubated, off sedation. Creat worsening 2.5 today, UO approx 250 ml in 24 hours despite hydration. Stop IVF, give 40 mg IV Lasix now. Tolerating CPAP , slightly tachypneic 05/09: Patient was extubated yesterday initially did well but currently very tachypneic hypoxemic chest x-ray shows bilateral infiltrate. Also BUN 52 creatinine has worsened to 3.2 with metabolic acidosis bicarb 16. Will attempt a short trial of BiPAP if not improving will proceed with endotracheal intubation. Scheduled with nephrology most likely will need to initiate hemodialysis. 05/10: Reintubated yesterday for severe respiratory distress and respiratory failure, remains critically ill. Currently intubated sedated. BUN/creatinine rising now BUN is 63 with a creatinine of 4.3. Oliguric urine output only 350 mL in 24 hours. WBC count is continues to increase 18.3 today with left shift. Chest x-ray shows evidence of scattered septic emboli Subjective 05/11: remains intubated and sedated. plan for HD today. continues to be significantly volume overloaded. overall guarded prognosis. wbc still uptrending. BRENDA persists. Objective Vital Signs / I&O: Vital Signs 05/10/18 17:45 05/10/18 18:00 05/10/18 18:15 Temperature Pulse Rate 79 79 79 Respiratory Rate 21 17 16 Blood Pressure 144/94 H 143/93 H 153/95 H Pulse Oximetry 97 97 97 05/10/18 18:30 05/10/18 18:45 05/10/18 19:00 Temperature Pulse Rate 79 78 85 Respiratory Rate 18 16 20 Blood Pressure 149/94 H 141/87 H 146/91 H Pulse Oximetry 97 97 97 05/10/18 19:15 05/10/18 19:30 05/10/18 19:43 Temperature Pulse Rate 81 82 Respiratory Rate 17 14 16 Blood Pressure 141/95 H 145/96 H Pulse Oximetry 97 97 97 05/10/18 19:46 05/10/18 20:00 05/10/18 20:01 Temperature 37.3 C Pulse Rate 82 86 86 Respiratory Rate 15 7 L 8 L Blood Pressure 143/89 H 179/104 H Pulse Oximetry 97 87 L 95 05/10/18 20:03 05/10/18 20:15 05/10/18 20:30 Temperature Pulse Rate 84 87 89 Respiratory Rate 24 20 18 Blood Pressure 167/90 H 153/87 H 151/91 H Pulse Oximetry 99 97 96 05/10/18 20:45 05/10/18 21:00 05/10/18 21:15 Temperature Pulse Rate 86 82 82 Respiratory Rate 19 16 16 Blood Pressure 152/98 H 139/77 138/80 Pulse Oximetry 97 97 97 05/10/18 21:31 05/10/18 21:45 05/10/18 22:00 Temperature Pulse Rate 83 80 81 Respiratory Rate 16 16 16 Blood Pressure 139/90 131/77 128/79 Pulse Oximetry 96 96 97 05/10/18 22:15 05/10/18 22:31 05/10/18 22:45 Temperature Pulse Rate 82 82 81 Respiratory Rate 16 15 16 Blood Pressure 136/82 131/86 135/85 Pulse Oximetry 96 96 96 05/10/18 23:00 05/10/18 23:15 05/10/18 23:30 Temperature Pulse Rate 82 81 83 Respiratory Rate 16 16 16 Blood Pressure 130/82 127/77 128/78 Pulse Oximetry 96 97 97 05/10/18 23:40 05/10/18 23:45 05/11/18 00:00 Temperature 37.9 C H Pulse Rate 84 81 Respiratory Rate 16 16 16 Blood Pressure 122/73 119/68 Pulse Oximetry 97 97 97 05/11/18 00:15 05/11/18 00:30 05/11/18 00:45 Temperature Pulse Rate 80 79 78 Respiratory Rate 16 16 16 Blood Pressure 118/69 116/68 113/65 Pulse Oximetry 96 97 96 05/11/18 01:00 05/11/18 01:15 05/11/18 01:30 Temperature Pulse Rate 77 76 76 Respiratory Rate 16 16 16 Blood Pressure 114/67 109/64 112/66 Pulse Oximetry 97 97 97 05/11/18 01:45 05/11/18 02:00 05/11/18 02:15 Temperature Pulse Rate 74 75 74 Respiratory Rate 16 16 16 Blood Pressure 106/65 122/72 118/69 Pulse Oximetry 97 97 97 05/11/18 02:30 05/11/18 02:48 05/11/18 03:00 Temperature Pulse Rate 80 87 80 Respiratory Rate 14 24 16 Blood Pressure 134/81 149/92 H Pulse Oximetry 95 100 99 05/11/18 03:48 05/11/18 03:49 05/11/18 04:00 Temperature 37.4 C Pulse Rate 74 73 Respiratory Rate 17 16 16 Blood Pressure Pulse Oximetry 100 99 05/11/18 04:04 05/11/18 05:00 05/11/18 06:00 Temperature Pulse Rate 83 83 73 Respiratory Rate 16 14 Blood Pressure 142/93 H 140/89 Pulse Oximetry 100 100 05/11/18 07:00 05/11/18 07:15 05/11/18 08:00 Temperature Pulse Rate 75 76 83 Respiratory Rate 15 16 20 Blood Pressure 128/76 149/91 H Pulse Oximetry 100 100 100 05/11/18 09:00 05/11/18 10:00 05/11/18 10:33 Temperature Pulse Rate 79 81 Respiratory Rate 16 19 19 Blood Pressure 144/83 H 139/93 H Pulse Oximetry 100 100 100 05/11/18 11:00 05/11/18 12:00 05/11/18 13:00 Temperature 37.3 C Pulse Rate 80 80 81 Respiratory Rate 19 16 16 Blood Pressure 139/88 133/82 140/87 Pulse Oximetry 100 100 100 05/11/18 14:00 05/11/18 14:15 05/11/18 15:00 Temperature Pulse Rate 80 83 Respiratory Rate 16 18 18 Blood Pressure 135/86 143/93 H Pulse Oximetry 100 100 100 05/11/18 15:30 05/11/18 15:37 05/11/18 15:40 Temperature Pulse Rate 86 87 Respiratory Rate 20 20 19 Blood Pressure 151/97 H Pulse Oximetry 100 100 05/11/18 15:45 05/11/18 16:00 05/11/18 16:15 Temperature Pulse Rate 88 91 H 92 H Respiratory Rate 20 22 21 Blood Pressure 157/82 H 153/105 H Pulse Oximetry 100 100 100 05/11/18 16:16 Temperature Pulse Rate 91 H Respiratory Rate 24 Blood Pressure Pulse Oximetry 100 Intake & Output 05/10/18 05/11/18 05/11/18 18:59 06:59 18:59 Intake Total 612.625 / 612.625 152 / 152 392 / 392 Output Total 2124 / 2124 5000 / 5000 Balance -1512.375 / -1512.375 152 / 152 -4608 / -4608 Weight 88.451 kg Intake: IV 587.625 / 587.625 152 / 152 392 / 392 Diprivan 1000 mg/100 ml Inj 1, 100 / 100 90 / 90 000 mg In 100 ml @ 5 MCG/KG/MIN 2.556 mls/hr IV.CONT TITRATE PRN Rx#:[id number] Sodium Chloride 23.4% Inj 38.5 83.625 / 83.625 MEQ In Sterile Water for Inj 1, 000 ML @ 84 mls/hr IV.CONT . Q12H2M STEFFANIE Rx#:[id number] Cerebyx Inj 100 MGPE In NS Inj 104 / 104 52 / 52 52 / 52 50 ML @ 208 mls/hr IV.SIG Q8H STEFFANIE Rx#:[id number] Prostaphlin Inj 2 GM In NS Inj 300 / 300 100 ML @ 200 mls/hr IV.SIG Q4H STEFFANIE Rx#:[id number] Ancef Inj 1,000 MG In NS Inj 100 / 100 100 ML @ 200 mls/hr IV.SIG Q24H STEFFANIE Rx#:[id number] fentaNYL 10 mcg/mL Premix Drip 250 / 250 2,500 mcg In 250 ml @ 50 MCG/HR 5 mls/hr IV.SIG TITRATE PRN Rx #:[id number] Tube Feeding 25 / 25 Output: Urine 125 / 125 Hemodialysis Amount 1999 5000 / 5000 Other: Date of Last Bowel Movement 05/09/18 05/09/18 05/09/18 # Bowel Movements 0 Result Diagrams: 05/10/18 03:35 05/11/18 03:25 Objective Remarks: GENERAL: 38-year-old male who is ill-appearing tachypneic encephalopathic SKIN: Warm/dry. Multiple tattoos. Multiple skin petechia with stigmata of septic emboli/[place] lesions HEAD: Atraumatic. Normocephalic. EYES: Pupils equal and round. No scleral icterus. Conjunctival splinter hemorrhages present ENT: No nasal bleeding or discharge. Mucous membranes dry. NECK: Trachea midline. No JVD. CARDIOVASCULAR: Tachycardic rate and rhythm. sinus. RESPIRATORY: On PRVC/AC. equal chest rise. GASTROINTESTINAL: Abdomen soft, nontender, nondistended. MUSCULOSKELETAL: No obvious deformities. No clubbing. NEUROLOGICAL: Patient is intubated sedated with propofol and fentanyl. On lightening sedation patient wakes up follows commands briefly. No focal deficits Assessment and Plan - Assessment and Plan Plan: Assessment: 38yM with mitral valve endocarditis and recurrent shock complicated by multi-organ failure. BRENDA persists and likely multifactorial from poor cardiac output from shock and endocarditis along with volume overload from heart failure from valvulopathy. respiratory failure continues and likely combination of septic pulmonary emboli and volume overload. continue dialysis today with volume removal. remains critically ill. overall quite guarded prognosis at best with significant organ dysfunction. NEURO/Psych: Metabolic encephalopathy Multifocal bilateral frontal/parietal occipital and cerebellar punctate infarcts , likely septic emboli Polysubstance abuse with withdrawal -Sedated with propofol and fentanyl, able to follow commands on lightening sedation -MRI brain shows Multifocal bilateral punctate infarcts, suspicious for embolic disease. -Neurology Dr. Mike. Continue aspirin 81 mg daily -Supplement multivitamin thiamine and folic acid daily -Watch closely for signs of meningitis/brain abscess from septic emboli -Developed possible seizures, on fosphenytoin -EEG-severe encephalopathy. IR attempted drain lumbar fluid collection-but on ultrasound there was no fluid collection RESP: Acute hypoxemic respiratory failure Pneumonia/septic emboli -Extubated 05/08/2018, reintubated 05/09/2018 for worsening hypoxemic respiratory failure -Albuterol/ipratropium aerosols every 6 hours with albuterol aerosols every 2 hours as needed for dyspnea -Sputum culture negative to date. CT chest 04/30 shows bilateral infiltrates, repeat CT chest if reintubated -Chest x-ray shows numerous bilateral nodular infiltrates CV: NSTEMI Mitral valve infective endocarditis Hypertension -(05/03) AURELIA with large mobile density on the anterior leaflet of mitral valve consistent with endocarditis (3cm x 1cm) -Continue aspirin 81 mg daily and carvedilol 3.25 mg twice daily. -As needed nicardipine drip -Avoid statins at this time due to hep C -Elevated troponin may be secondary to coronary artery septic emboli -continue dialysis with volume removal. GI: Hepatitis C -IV famotidine 20 mg twice daily. Change tube feeds to Nepro -Docusate sodium/senna 1 tablet twice daily for bowel regimen -Speech pathology consulted for speech evaluation and swallow evaluation Renal//FEN: Acute kidney injury Hypernatremia Hyperkalemia -BUN/creatinine worsening with oliguria despite medical therapy -HD again today with volume removal. will likely need daily volume removal. -Monitor renal function closely. [place] catheter. Accurate I's and O's -Replace electrolytes as clinically indicated per ICU electrolyte protocol ID: Severe sepsis Mitral valve infective endocarditis -Antibiotics with Oxacillin per ID -Blood culture with GPC 4 staph aureus -Repeat blood urine and sputum culture sent HEME: Leukocytosis Normocytic anemia -Monitor CBC, coags ENDO: -Electrolyte replacement per protocol -Sliding scale insulin with aspart insulin low regimen every 6 hours PROPH: -Bilateral lower extremity SCDs. famotidine. Enoxaparin 40 mg sq daily LINES: -Utilize peripheral IVs, central line if needed 38 minutes critical care time excluding procedures
[2018-05-12] MEDS: Carboxymethylcellulose 0.5% Opth Drops 15 ML Bottle EACH EYE SCH ×3 (04:13→16:01)
[2018-05-12] MEDS: Oral Hygiene Kit OROPHARYNG SCH ×3 (04:13→16:01)
[2018-05-12 05:05] LABS: Hematocrit 28.1 % (39.0-51.0); Hemoglobin 9.3 gm/dL (13.0-17.0); Mean Corpuscular HGB Conc 33.2 % (32.0-36.0); Mean Corpuscular Hemoglobin 28.6 pg (27.0-34.0); Mean Corpuscular Volume 86.2 fL (80.0-100.0); Mean Platelet Volume 9.2 fL (7.0-11.0); Platelet Count 295 th/mm3 (150-450); Red Blood Count 3.26 mil/mm3 (4.50-5.90); Red Cell Distribution Width 15.9 % (11.6-17.2)
[2018-05-12 05:13] LABS: INR 1.1 Ratio; Prothrombin Time 10.7 sec (9.8-11.6)
--- NOTE | 2018-05-12 05:18 | XR ---
EXAM DATE: 05/12/2018 4:21 AM EDT AGE/SEX: 38 years / Male INDICATIONS: Shortness of breath, possible pulmonary disease. CLINICAL DATA: This is the patient's subsequent encounter. Patient reports that signs and symptoms h ave been present for 1 week and indicates a pain score of Nonresponsive. MEDICAL/SURGICAL HISTORY: . Hepatitis C. IVDA. Endocarditis None. COMPARISON: [facility], CHEST 1V SINGLE AP, 05/10/2018. . FINDINGS: Stable ETT, NGT, and temporary right IJ dialysis catheter. Significantly improved aeration with impro aaron patchy bilateral interstitial and alveolar opacities. Cardiomediastinal contours are within cody l limits. Remainder of the exam is unchanged. CONCLUSION: 1. Stable tubes and lines, as above. 2. Significantly improved diffuse patchy bilateral interstitial and alveolar opacities. Electronically signed by: Lucas Diaz MD 05/12/2018 5:16 AM EDT
[2018-05-12 05:33] LABS: Alanine Aminotransferase 10 U/L (12-78); Albumin 2.1 g/dL (3.4-5.0); Alkaline Phosphatase 87 U/L (45-117); Anion Gap 11 meq/L (5-15); Aspartate Aminotransferase 23 U/L (15-37); Blood Urea Nitrogen 46 mg/dL (7-18); Calcium 7.8 mg/dL (8.5-10.1); Carbon Dioxide 28.3 meq/L (21.0-32.0); Chloride 106 meq/L (98-107); Glomerular Filtration Rate 14 mL/min (>89); Glucose,Random 106 mg/dL (74-106); Magnesium 2.4 mg/dL (1.5-2.5); Phosphorus 6.4 mg/dL (2.5-4.9); Potassium 3.4 meq/L (3.5-5.1); Sodium 145 meq/L (136-145); Total Protein 7.1 g/dL (6.4-8.2)
[2018-05-12 06:09] LABS: ABG Base Excess 2.3 mmol/L (-2-2); ABG PCO2 39 mmHg (38-42); ABG PO2 123 mmHG (61-120)
[2018-05-12] MEDS: Fosphenytoin Inj 100 MGPE in Sodium Chlor 0.9% Inj 50 ML IV.SIG SCH ×2 (07:56→16:01)
[2018-05-12] MEDS: Chlorhexidine 0.12% Oral Kit 15 ML UDC OROPHARYNG SCH ×2 (07:57→21:18)
[2018-05-12] MEDS: Insulin NovoLOG Aspart Correctional Sugar Inj SQ SCH ×3 (07:58→17:54)
[2018-05-12] MEDS: Senna/Docusate Sodium 8.6/50 MG Tablet PO SCH ×2 (08:09→21:18)
[2018-05-12] MEDS: Enoxaparin Inj 40 MG/0.4 ML Syringe SQ SCH (08:09)
[2018-05-12] MEDS: Propofol 1000 mg/100 ml Inj 1,000 MG/100 ML BOTTLE IV.CONT PRN (08:25)
[2018-05-12] MEDS: Heparin 10,000 UNITS/10 ML Vial (for IV use) OTHER PRN (08:52)
--- NOTE | 2018-05-12 11:49 | P.PNNP ---
Subjective Interval history: Patient is on the vent., and sedated, seen after the HD. Physical Exam Vital signs: Vital Signs 05/11/18 12:00 05/11/18 13:00 05/11/18 14:00 Temperature 99.2 F Pulse Rate 80 81 80 Respiratory Rate 16 16 16 Blood Pressure 133/82 140/87 135/86 Pulse Oximetry 100 100 100 05/11/18 14:15 05/11/18 15:00 05/11/18 15:30 Temperature Pulse Rate 83 86 Respiratory Rate 18 18 20 Blood Pressure 143/93 H 151/97 H Pulse Oximetry 100 100 100 05/11/18 15:37 05/11/18 15:40 05/11/18 15:45 Temperature Pulse Rate 87 88 Respiratory Rate 20 19 20 Blood Pressure 157/82 H Pulse Oximetry 100 100 05/11/18 16:00 05/11/18 16:15 05/11/18 16:16 Temperature Pulse Rate 91 H 92 H 91 H Respiratory Rate 22 21 24 Blood Pressure 153/105 H Pulse Oximetry 100 100 100 05/11/18 16:31 05/11/18 16:45 05/11/18 17:00 Temperature Pulse Rate 92 H 91 H 91 H Respiratory Rate 19 16 17 Blood Pressure 138/101 H 127/93 H 127/93 H Pulse Oximetry 100 100 100 05/11/18 17:16 05/11/18 17:30 05/11/18 17:56 Temperature Pulse Rate 91 H 90 87 Respiratory Rate 20 17 Blood Pressure 141/92 H 134/86 Pulse Oximetry 100 100 05/11/18 18:00 05/11/18 19:00 05/11/18 19:11 Temperature Pulse Rate 87 85 86 Respiratory Rate 16 18 16 Blood Pressure 129/79 142/89 H Pulse Oximetry 100 100 05/11/18 20:00 05/11/18 21:00 05/11/18 22:00 Temperature 99.2 F Pulse Rate 86 85 81 Respiratory Rate 16 16 17 Blood Pressure 131/76 125/70 127/75 Pulse Oximetry 100 100 100 05/11/18 23:00 05/11/18 23:26 05/12/18 00:00 Temperature 99.4 F Pulse Rate 80 79 Respiratory Rate 16 16 13 Blood Pressure 128/70 149/84 H Pulse Oximetry 100 100 100 05/12/18 01:00 05/12/18 02:00 05/12/18 03:00 Temperature Pulse Rate 78 76 79 Respiratory Rate 16 16 16 Blood Pressure 132/73 136/81 130/83 Pulse Oximetry 100 100 100 05/12/18 04:00 05/12/18 04:24 05/12/18 05:00 Temperature 98.4 F Pulse Rate 82 80 82 Respiratory Rate 16 17 13 Blood Pressure 137/73 130/77 Pulse Oximetry 100 100 100 05/12/18 06:00 05/12/18 07:00 05/12/18 07:15 Temperature Pulse Rate 81 81 83 Respiratory Rate 16 15 16 Blood Pressure 126/83 133/81 Pulse Oximetry 100 100 05/12/18 07:48 05/12/18 08:00 05/12/18 08:16 Temperature 100.1 F H Pulse Rate 88 88 Respiratory Rate 16 16 18 Blood Pressure 165/95 H 154/92 H Pulse Oximetry 100 100 100 05/12/18 08:30 05/12/18 08:45 05/12/18 09:00 Temperature Pulse Rate 90 88 86 Respiratory Rate 18 17 17 Blood Pressure 156/95 H 151/97 H 150/93 H Pulse Oximetry 100 100 100 05/12/18 10:00 05/12/18 11:37 Temperature Pulse Rate 93 H Respiratory Rate 16 Blood Pressure Pulse Oximetry 98 Intake & Output 05/11/18 05/12/18 05/12/18 18:59 06:59 18:59 Intake Total 997 / 997 628 / 628 152 / 152 Output Total 5000 / 5000 50 / 50 4500 / 4500 Balance -4003 / -4003 578 / 578 -4348 / -4348 Weight 87.5 kg Intake: IV 444 / 444 152 / 152 152 / 152 Diprivan 1000 mg/100 ml Inj 1, 90 / 90 100 / 100 000 mg In 100 ml @ 5 MCG/KG/MIN 2.556 mls/hr IV.CONT TITRATE PRN Rx#:[id number] Cerebyx Inj 100 MGPE In NS Inj 104 / 104 52 / 52 52 / 52 50 ML @ 208 mls/hr IV.SIG Q8H [facility] Rx#:[id number] Ancef Inj 1,000 MG In NS Inj 100 / 100 100 ML @ 200 mls/hr IV.SIG Q24H [facility] Rx#:[id number] fentaNYL 10 mcg/mL Premix Drip 250 / 250 2,500 mcg In 250 ml @ 50 MCG/HR 5 mls/hr IV.SIG TITRATE PRN Rx #:[id number] Tube Feeding 553 / 553 476 / 476 Output: Urine 50 / 50 Urine/Stool Mix 0 / 0 Hemodialysis Amount 5000 / 5000 4500 / 4500 Other: Date of Last Bowel Movement 05/09/18 05/09/18 05/09/18 # Bowel Movements 0 Narrative: GENERAL: Patient is intubated and sedated. SKIN: Warm and dry. HEAD: Normocephalic. EYES: No scleral icterus. No injection or drainage. NECK: Supple, trachea midline. No JVD. CARDIOVASCULAR: Regular rate and rhythm without murmurs, gallops, or rubs. RESPIRATORY: Breath sounds equal bilaterally. No accessory muscle use. GASTROINTESTINAL: Abdomen soft, non-tender, nondistended. MUSCULOSKELETAL: No cyanosis, or edema. BACK: Nontender without obvious deformity. No CVA tenderness. - Urinary Catheter Management Condom Cath placed during this visit: no Indwelling Urethral Catheter Cath placed during this visit: yes Reason for continuing: Acute urinary retention Insertion date: 05/06/18 Insertion time: 16:40 Assessment and Plan - Assessment (1) Hypernatremia Code(s): E87.0 - Hyperosmolality and hypernatremia Status: Acute (2) Altered mental status Code(s): R41.82 - Altered mental status, unspecified Status: Acute (3) Endocarditis Code(s): I38 - Endocarditis, valve unspecified Status: Acute (4) Sepsis Code(s): A41.9 - Sepsis, unspecified organism Status: Acute Qualifiers: Sepsis type: sepsis due to unspecified organism Qualified Code(s): A41.9 - Sepsis, unspecified organism (5) Hyponatremia Code(s): E87.1 - Hypo-osmolality and hyponatremia Status: Acute - Plan Patient urine output has declined creatinine remain elevated. 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 HD done today, tolerated well. BP is stable. Continue HD as needed.
[2018-05-12] MEDS: fentaNYL 10 mcg/mL Premix Drip 2,500 MCG/250 ML BAG IV.SIG PRN (13:42)
--- NOTE | 2018-05-12 14:34 | P.PNID ---
Subjective Remarks: On vent , reintubated afebrile UOP is minimal remains on HD Sputum with H flue Antibiotics: ancef Past Medical History: IVDU Allergies/Adverse Reactions: Allergies No Known Allergies Allergy (Unknown, Uncoded 07/13/17 00:28) Objective Vital Signs 05/11/18 15:00 05/11/18 15:30 05/11/18 15:37 Temperature Pulse Rate 83 86 Respiratory Rate 18 20 20 Blood Pressure 143/93 H 151/97 H Pulse Oximetry 100 100 100 05/11/18 15:40 05/11/18 15:45 05/11/18 16:00 Temperature Pulse Rate 87 88 91 H Respiratory Rate 19 20 22 Blood Pressure 157/82 H 153/105 H Pulse Oximetry 100 100 05/11/18 16:15 05/11/18 16:16 05/11/18 16:31 Temperature Pulse Rate 92 H 91 H 92 H Respiratory Rate 21 24 19 Blood Pressure 138/101 H Pulse Oximetry 100 100 100 05/11/18 16:45 05/11/18 17:00 05/11/18 17:16 Temperature Pulse Rate 91 H 91 H 91 H Respiratory Rate 16 17 20 Blood Pressure 127/93 H 127/93 H 141/92 H Pulse Oximetry 100 100 100 05/11/18 17:30 05/11/18 17:56 05/11/18 18:00 Temperature Pulse Rate 90 87 87 Respiratory Rate 17 16 Blood Pressure 134/86 129/79 Pulse Oximetry 100 100 05/11/18 19:00 05/11/18 19:11 05/11/18 20:00 Temperature 99.2 F Pulse Rate 85 86 86 Respiratory Rate 18 16 16 Blood Pressure 142/89 H 131/76 Pulse Oximetry 100 100 05/11/18 21:00 05/11/18 22:00 05/11/18 23:00 Temperature Pulse Rate 85 81 80 Respiratory Rate 16 17 16 Blood Pressure 125/70 127/75 128/70 Pulse Oximetry 100 100 100 05/11/18 23:26 05/12/18 00:00 05/12/18 01:00 Temperature 99.4 F Pulse Rate 79 78 Respiratory Rate 16 13 16 Blood Pressure 149/84 H 132/73 Pulse Oximetry 100 100 100 05/12/18 02:00 05/12/18 03:00 05/12/18 04:00 Temperature 98.4 F Pulse Rate 76 79 82 Respiratory Rate 16 16 16 Blood Pressure 136/81 130/83 137/73 Pulse Oximetry 100 100 100 05/12/18 04:24 05/12/18 05:00 05/12/18 06:00 Temperature Pulse Rate 80 82 81 Respiratory Rate 17 13 16 Blood Pressure 130/77 126/83 Pulse Oximetry 100 100 100 05/12/18 07:00 05/12/18 07:15 05/12/18 07:48 Temperature Pulse Rate 81 83 Respiratory Rate 15 16 16 Blood Pressure 133/81 Pulse Oximetry 100 100 05/12/18 08:00 05/12/18 08:16 05/12/18 08:30 Temperature 100.1 F H Pulse Rate 88 88 90 Respiratory Rate 16 18 18 Blood Pressure 165/95 H 154/92 H 156/95 H Pulse Oximetry 100 100 100 05/12/18 08:45 05/12/18 09:00 05/12/18 09:15 Temperature Pulse Rate 88 86 86 Respiratory Rate 17 17 16 Blood Pressure 151/97 H 150/93 H 140/90 Pulse Oximetry 100 100 100 05/12/18 09:30 05/12/18 09:45 05/12/18 10:00 Temperature Pulse Rate 87 92 H 93 H Respiratory Rate 15 17 17 Blood Pressure 140/78 143/87 H 140/92 H Pulse Oximetry 100 100 100 05/12/18 10:15 05/12/18 10:30 05/12/18 10:45 Temperature Pulse Rate 92 H 94 H 95 H Respiratory Rate 16 16 17 Blood Pressure 136/89 116/86 117/84 Pulse Oximetry 100 100 100 05/12/18 11:00 05/12/18 11:37 05/12/18 12:00 Temperature 100.1 F H Pulse Rate 96 H 93 H Respiratory Rate 17 16 16 Blood Pressure 134/80 127/65 Pulse Oximetry 100 98 98 Intake & Output 05/11/18 05/12/18 05/12/18 18:59 06:59 18:59 Intake Total 997 / 997 628 / 628 402 / 402 Output Total 5000 / 5000 50 / 50 4500 / 4500 Balance -4003 / -4003 578 / 578 -4098 / -4098 Weight 87.5 kg Intake: IV 444 / 444 152 / 152 402 / 402 Diprivan 1000 mg/100 ml Inj 1, 90 / 90 100 / 100 000 mg In 100 ml @ 5 MCG/KG/MIN 2.556 mls/hr IV.CONT TITRATE PRN Rx#:[id number] Cerebyx Inj 100 MGPE In NS Inj 104 / 104 52 / 52 52 / 52 50 ML @ 208 mls/hr IV.SIG Q8H [facility] Rx#:[id number] Ancef Inj 1,000 MG In NS Inj 100 / 100 100 ML @ 200 mls/hr IV.SIG Q24H [facility] Rx#:[id number] fentaNYL 10 mcg/mL Premix Drip 250 / 250 250 / 250 2,500 mcg In 250 ml @ 50 MCG/HR 5 mls/hr IV.SIG TITRATE PRN Rx #:[id number] Tube Feeding 553 / 553 476 / 476 Output: Urine 50 / 50 Urine/Stool Mix 0 / 0 Hemodialysis Amount 5000 / 5000 4500 / 4500 Other: Date of Last Bowel Movement 05/09/18 05/09/18 05/09/18 # Bowel Movements 0 05/09/18 17:00 Sputum - Endotracheal Gram Stain - Final 05/09/18 17:00 Sputum - Endotracheal Sputum Culture - Final Haemophilus influenzae 05/09/18 14:27 Blood - Peripheral Aerobic Blood Culture - Preliminary No growth in 3 days 05/09/18 14:27 Blood - Peripheral Anaerobic Blood Culture - Preliminary No growth in 3 days 05/09/18 14:33 Blood - Peripheral Aerobic Blood Culture - Preliminary No growth in 3 days 05/09/18 14:33 Blood - Peripheral Anaerobic Blood Culture - Preliminary No growth in 3 days 05/09/18 17:00 Catheterized Urine Urine Culture - Final No growth in 48 hours Lab - Hematology Results 05/12/18 04:00 WBC 13.0 H RBC 3.26 L Hgb 9.3 L Hct 28.1 L MCV 86.2 MCH 28.6 MCHC 33.2 RDW 15.9 Plt Count 295 MPV 9.2 Lab - Chemistry Results 05/10/18 05/10/18 05/11/18 18:25 23:07 03:25 Sodium 154 H Potassium 3.8 Chloride 118 H Carbon Dioxide 25.5 Anion Gap 11 BUN 58 H Creatinine 4.46 H Estimated GFR 15 L POC Glucose 88 90 Random Glucose 107 H Calcium 6.1 L* D Prot Corrected Calcium 9.0 Phosphorus Magnesium Total Bilirubin AST ALT Alkaline Phosphatase Total Protein 2.0 L D Albumin 05/11/18 05/11/18 05/11/18 12:16 17:37 22:55 Sodium Potassium Chloride Carbon Dioxide Anion Gap BUN Creatinine Estimated GFR POC Glucose 130 H 119 H 98 Random Glucose Calcium Prot Corrected Calcium Phosphorus Magnesium Total Bilirubin AST ALT Alkaline Phosphatase Total Protein Albumin 05/12/18 05/12/18 04:00 11:11 Sodium 145 Potassium 3.4 L Chloride 106 D Carbon Dioxide 28.3 Anion Gap 11 BUN 46 H Creatinine 4.60 H Estimated GFR 14 L POC Glucose 108 Random Glucose 106 Calcium 7.8 L D Prot Corrected Calcium Phosphorus 6.4 H Magnesium 2.4 Total Bilirubin 0.5 AST 23 ALT 10 L Alkaline Phosphatase 87 Total Protein 7.1 D Albumin 2.1 L Imaging: ITS Impressions Chest CT 04/30/18 00:00 CONCLUSION: 1. Parenchymal process bilaterally most likely inflammatory and pneumonia. Abdomen/Pelvis CT 04/30/18 08:48 CONCLUSION: 1. 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 2. Haziness in the anterior margins of the perinephric space at the junction of the spleen possibly inflammatory process of uncertain etiology. Head MRI 05/01/18 00:00 CONCLUSION: 1. Multifocal bilateral punctate infarcts, suspicious for embolic disease. 2. No midline shift or mass effect. Lumbar Spine MRI 05/06/18 00:00 CONCLUSION: 1. Large posterior subcutaneous fluid collection with enhancement. This could represent a seroma or abscess. 2. No evidence of osteomyelitis or discitis. Thoracic Spine MRI 05/06/18 00:00 CONCLUSION: 1. Negative thoracic MRI with no evidence of osteomyelitis or discitis. 2. Please see lumbar spine MRI for further details on findings in this region. Head CT 05/06/18 15:42 CONCLUSION: 1. No acute hemorrhage or mass effect. 2. The small bilateral known punctate infarcts seen on the MRI are not distinctly visualized. 3. Mucosal thickening in the ethmoidal air cells, sphenoid sinus and both maxillary sinuses. Abdomen/Bladder Ultrasound 05/08/18 00:00 CONCLUSION: 1. Trace perinephric fluid surrounding the right kidney. 2. Small right pleural effusion. 3. Otherwise normal sonographic appearance of the kidneys without evidence of hydronephrosis. Chest X-Ray 05/12/18 05:00 CONCLUSION: 1. Stable tubes and lines, as above. 2. Significantly improved diffuse patchy bilateral interstitial and alveolar opacities. Physical Exam: GENERAL: NAD Intubated. SKIN: Warm and dry. evolving extensive petechial and [place] lesions HEAD: Atraumatic. Normocephalic. EYES: Pupils equal and round. No scleral icterus. No injection or drainage. evolvinhg conjunctival hmrgs ENT: No nasal bleeding or discharge. Mucous membranes pink and moist. NECK: Trachea midline. No JVD. CARDIOVASCULAR: Regular rate and rhythm. RESPIRATORY: No accessory muscle use. Clear to auscultation. Breath sounds equal bilaterally. GASTROINTESTINAL: Abdomen soft, non-tender, nondistended. Hepatic and splenic margins not palpable. MUSCULOSKELETAL: Extremities without clubbing, cyanosis, or edema. No obvious deformities. 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
[2018-05-12] MEDS: Levofloxacin 500 mg Premix Inj 500 MG/100 ML PIGGYBACK IV.SIG SCH (14:52)
--- NOTE | 2018-05-12 16:00 | P.PNCC ---
Subjective Subjective Remarks/Hospital Course: Patient is 38-year-old male with history of IV drug use, prev endocarditis, Hepatitis C, who presented to the emergency department via [facility] from [facility] for acute psychosis and altered mental status. CT of the head done at [facility] was negative for acute findings. Patient was very confused and delirious at [facility] ED. His last IV drug use of heroin was 5 days ago. Urine drug screen is pending at this time. ER workup showed multiple abnormalities, pertinent ones being a white count of 16.1 with left shift, troponin 3.24, lactic acid 3.1, CPK of 592, potassium of 3.1. Received 3 L of normal saline in the ED and was given Zosyn and vancomycin. I evaluated the patient in the emergency department. He is confused delirious oriented to person only. He is very tachycardic and dry. Patient appears very critical and septic. With IV drug use patient most likely has recurrence of infective endocarditis. Cardiology consult as well as ID consult had been requested. I will give additional 1 L fluid bolus and continue vancomycin and Zosyn. I will place on Precedex. 2D echo is pending at this time 05/01: Patient remains critically ill confused encephalopathy but slightly better speech. MRI of the brain is pending at this time. CT of the abdomen pelvis showed splenic infarct and probable inflammatory changes of the left perinephric space. CT chest shows bilateral infiltrates. WBC count is elevated 20.4 today. On broad-spectrum antibiotics per ID. Echo pending. MRI brain shows Multifocal bilateral punctate infarcts, suspicious for embolic disease. Blood cx positive 11/29 GPC 05/02: Patient intermittently agitated overnight, Precedex closely started. Currently, speech is improved. Echo official report pending but preliminary no vegetation seen. Will schedule AURELIA. Blood cultures growing staph aureus. Antibiotics narrowed to oxacillin by ID 05/03: Drowsy, easily arousable. remains orally intubated on mech ventilation. 05/06: Reconsulted due to acute altered desaturation on general medical floor. Currently 9% nonrebreather and speaking nonsensically. Patient is currently restrained to the bed with soft restraints. Decision made to intubate. Phone number in chart [phone] is not the mother. No other family available/ second tissue. Attempted to call his cell phone without results. 05/07: Remains intubated sedated very critical. WBC count increasing indicating worsening sepsis. Patient remains encephalopathy. Lumbar spine MRI showed large posterior subcutaneous fluid collection with enhancement-seroma or abscess. No evidence of osteomyelitis or discitis. IR to drain today with further fluid studies. There was questionable seizures overnight EEG preliminary no seizures. Continue fosphenytoin for now 05/08: Remains intubated, off sedation. Creat worsening 2.5 today, UO approx 250 ml in 24 hours despite hydration. Stop IVF, give 40 mg IV Lasix now. Tolerating CPAP , slightly tachypneic 05/09: Patient was extubated yesterday initially did well but currently very tachypneic hypoxemic chest x-ray shows bilateral infiltrate. Also BUN 52 creatinine has worsened to 3.2 with metabolic acidosis bicarb 16. Will attempt a short trial of BiPAP if not improving will proceed with endotracheal intubation. Scheduled with nephrology most likely will need to initiate hemodialysis. 05/10: Reintubated yesterday for severe respiratory distress and respiratory failure, remains critically ill. Currently intubated sedated. BUN/creatinine rising now BUN is 63 with a creatinine of 4.3. Oliguric urine output only 350 mL in 24 hours. WBC count is continues to increase 18.3 today with left shift. Chest x-ray shows evidence of scattered septic emboli Subjective 05/11: remains intubated and sedated. plan for HD today. continues to be significantly volume overloaded. overall guarded prognosis. wbc still uptrending. BRENDA persists. 05/12: intubated and sedated but following commands. IHD again today with good volume removal. hypoxia improving and respiratory function better. PEEP weaned to 7. went apneic on SBT today. Objective Vital Signs / I&O: Vital Signs 05/11/18 16:00 05/11/18 16:15 05/11/18 16:16 Temperature Pulse Rate 91 H 92 H 91 H Respiratory Rate 22 21 24 Blood Pressure 153/105 H Pulse Oximetry 100 100 100 05/11/18 16:31 05/11/18 16:45 05/11/18 17:00 Temperature Pulse Rate 92 H 91 H 91 H Respiratory Rate 19 16 17 Blood Pressure 138/101 H 127/93 H 127/93 H Pulse Oximetry 100 100 100 05/11/18 17:16 05/11/18 17:30 05/11/18 17:56 Temperature Pulse Rate 91 H 90 87 Respiratory Rate 20 17 Blood Pressure 141/92 H 134/86 Pulse Oximetry 100 100 05/11/18 18:00 05/11/18 19:00 05/11/18 19:11 Temperature Pulse Rate 87 85 86 Respiratory Rate 16 18 16 Blood Pressure 129/79 142/89 H Pulse Oximetry 100 100 05/11/18 20:00 05/11/18 21:00 05/11/18 22:00 Temperature 37.3 C Pulse Rate 86 85 81 Respiratory Rate 16 16 17 Blood Pressure 131/76 125/70 127/75 Pulse Oximetry 100 100 100 05/11/18 23:00 05/11/18 23:26 05/12/18 00:00 Temperature 37.4 C Pulse Rate 80 79 Respiratory Rate 16 16 13 Blood Pressure 128/70 149/84 H Pulse Oximetry 100 100 100 05/12/18 01:00 05/12/18 02:00 05/12/18 03:00 Temperature Pulse Rate 78 76 79 Respiratory Rate 16 16 16 Blood Pressure 132/73 136/81 130/83 Pulse Oximetry 100 100 100 05/12/18 04:00 05/12/18 04:24 05/12/18 05:00 Temperature 36.9 C Pulse Rate 82 80 82 Respiratory Rate 16 17 13 Blood Pressure 137/73 130/77 Pulse Oximetry 100 100 100 05/12/18 06:00 05/12/18 07:00 05/12/18 07:15 Temperature Pulse Rate 81 81 83 Respiratory Rate 16 15 16 Blood Pressure 126/83 133/81 Pulse Oximetry 100 100 05/12/18 07:48 05/12/18 08:00 05/12/18 08:16 Temperature 37.8 C H Pulse Rate 88 88 Respiratory Rate 16 16 18 Blood Pressure 165/95 H 154/92 H Pulse Oximetry 100 100 100 05/12/18 08:30 05/12/18 08:45 05/12/18 09:00 Temperature Pulse Rate 90 88 86 Respiratory Rate 18 17 17 Blood Pressure 156/95 H 151/97 H 150/93 H Pulse Oximetry 100 100 100 05/12/18 09:15 05/12/18 09:30 05/12/18 09:45 Temperature Pulse Rate 86 87 92 H Respiratory Rate 16 15 17 Blood Pressure 140/90 140/78 143/87 H Pulse Oximetry 100 100 100 05/12/18 10:00 05/12/18 10:15 05/12/18 10:30 Temperature Pulse Rate 93 H 92 H 94 H Respiratory Rate 17 16 16 Blood Pressure 140/92 H 136/89 116/86 Pulse Oximetry 100 100 100 05/12/18 10:45 05/12/18 11:00 05/12/18 11:37 Temperature Pulse Rate 95 H 96 H Respiratory Rate 17 17 16 Blood Pressure 117/84 134/80 Pulse Oximetry 100 100 98 05/12/18 12:00 05/12/18 14:00 05/12/18 15:31 Temperature 37.8 C H Pulse Rate 93 H 85 92 H Respiratory Rate 16 14 Blood Pressure 127/65 Pulse Oximetry 98 Intake & Output 05/11/18 05/12/18 05/12/18 18:59 06:59 18:59 Intake Total 997 / 997 628 / 628 402 / 402 Output Total 5000 / 5000 50 / 50 4500 / 4500 Balance -4003 / -4003 578 / 578 -4098 / -4098 Weight 87.5 kg Intake: IV 444 / 444 152 / 152 402 / 402 Diprivan 1000 mg/100 ml Inj 1, 90 / 90 100 / 100 000 mg In 100 ml @ 5 MCG/KG/MIN 2.556 mls/hr IV.CONT TITRATE PRN Rx#:[id number] Cerebyx Inj 100 MGPE In NS Inj 104 / 104 52 / 52 52 / 52 50 ML @ 208 mls/hr IV.SIG Q8H STEFFANIE Rx#:[id number] Ancef Inj 1,000 MG In NS Inj 100 / 100 100 ML @ 200 mls/hr IV.SIG Q24H STEFFANIE Rx#:[id number] fentaNYL 10 mcg/mL Premix Drip 250 / 250 250 / 250 2,500 mcg In 250 ml @ 50 MCG/HR 5 mls/hr IV.SIG TITRATE PRN Rx #:[id number] Tube Feeding 553 / 553 476 / 476 Output: Urine 50 / 50 Urine/Stool Mix 0 / 0 Hemodialysis Amount 5000 / 5000 4500 / 4500 Other: Date of Last Bowel Movement 05/09/18 05/09/18 05/09/18 # Bowel Movements 0 Result Diagrams: 05/12/18 04:00 05/12/18 04:00 Objective Remarks: GENERAL: 38-year-old male who is ill-appearing tachypneic encephalopathic SKIN: Warm/dry. Multiple tattoos. Multiple skin petechia with stigmata of septic emboli/[place] lesions HEAD: Atraumatic. Normocephalic. EYES: Pupils equal and round. No scleral icterus. Conjunctival splinter hemorrhages present ENT: No nasal bleeding or discharge. Mucous membranes moist. NECK: Trachea midline. No JVD. CARDIOVASCULAR: Tachycardic rate and rhythm. sinus. RESPIRATORY: On PRVC/AC. equal chest rise. GASTROINTESTINAL: Abdomen soft, nontender, nondistended. MUSCULOSKELETAL: No obvious deformities. No clubbing. NEUROLOGICAL: Patient is intubated sedated with propofol and fentanyl. On lightening sedation patient wakes up follows commands briefly. No focal deficits Assessment and Plan - Assessment and Plan Plan: Assessment: 38yM with mitral valve endocarditis and recurrent shock complicated by multi-organ failure. BRENDA persists and likely multifactorial from poor cardiac output from shock and endocarditis along with volume overload from heart failure from valvulopathy. respiratory failure continues and likely combination of septic pulmonary emboli and volume overload. continue dialysis today with volume removal. remains critically ill. overall quite guarded prognosis at best with significant organ dysfunction. will continue to wean pulmonary function and work towards extubation, although failed SBT today. NEURO/Psych: Metabolic encephalopathy Multifocal bilateral frontal/parietal occipital and cerebellar punctate infarcts , likely septic emboli Polysubstance abuse with withdrawal -Sedated with propofol and fentanyl, able to follow commands on lightening sedation -MRI brain shows Multifocal bilateral punctate infarcts, suspicious for embolic disease. -Neurology Dr. Mike. Continue aspirin 81 mg daily -Supplement multivitamin thiamine and folic acid daily -Watch closely for signs of meningitis/brain abscess from septic emboli -Developed possible seizures, on fosphenytoin -EEG-severe encephalopathy. IR attempted drain lumbar fluid collection-but on ultrasound there was no fluid collection RESP: Acute hypoxemic respiratory failure Pneumonia/septic emboli -Extubated 05/08/2018, reintubated 05/09/2018 for worsening hypoxemic respiratory failure -Albuterol/ipratropium aerosols every 6 hours with albuterol aerosols every 2 hours as needed for dyspnea -Sputum culture negative to date. CT chest 04/30 shows bilateral infiltrates, repeat CT chest if reintubated -Chest x-ray shows numerous bilateral nodular infiltrates - wean PEEP to 7 today, likely to 5 tomorrow if continues to improve. - continue daily SBT. CV: NSTEMI Mitral valve infective endocarditis Hypertension -(05/03) AURELIA with large mobile density on the anterior leaflet of mitral valve consistent with endocarditis (3cm x 1cm) -Continue aspirin 81 mg daily and carvedilol 3.25 mg twice daily. -As needed nicardipine drip -Avoid statins at this time due to hep C -Elevated troponin may be secondary to coronary artery septic emboli -continue dialysis with volume removal. GI: Hepatitis C -IV famotidine 20 mg twice daily. Change tube feeds to Nepro -Docusate sodium/senna 1 tablet twice daily for bowel regimen -Speech pathology consulted for speech evaluation and swallow evaluation Renal//FEN: Acute kidney injury Hypernatremia Hyperkalemia -BUN/creatinine worsening with oliguria despite medical therapy -HD again today with volume removal. will likely need daily volume removal. -Monitor renal function closely. [place] catheter. Accurate I's and O's -Replace electrolytes as clinically indicated per ICU electrolyte protocol ID: Severe sepsis Mitral valve infective endocarditis H. Flu pneumonia -Antibiotics with ancef per ID added levaquin for H. Flu. -Blood culture with GPC 4 staph aureus -Repeat blood urine and sputum culture sent HEME: Leukocytosis Normocytic anemia -Monitor CBC, coags ENDO: -Electrolyte replacement per protocol -Sliding scale insulin with aspart insulin low regimen every 6 hours PROPH: -Bilateral lower extremity SCDs. famotidine. Enoxaparin 40 mg sq daily LINES: -Utilize peripheral IVs, central line if needed
[2018-05-12] MEDS ORDERED: Dexmedetomidine Inj 200 MCG in Sodium Chlor 0.9% Inj 48 ML IV.CONT PRN (16:13)
[2018-05-12] MEDS: Dexmedetomidine Inj 1,000 MCG in Sodium Chlor 0.9% Inj 240 ML IV.CONT PRN (18:13)
[2018-05-13] MEDS: Insulin NovoLOG Aspart Correctional Sugar Inj SQ SCH ×4 (00:19→18:01)
[2018-05-13] MEDS: Carboxymethylcellulose 0.5% Opth Drops 15 ML Bottle EACH EYE SCH ×4 (01:16→15:09)
[2018-05-13] MEDS: Fosphenytoin Inj 100 MGPE in Sodium Chlor 0.9% Inj 50 ML IV.SIG SCH ×3 (01:16→15:11)
[2018-05-13] MEDS: Dexmedetomidine Inj 1,000 MCG in Sodium Chlor 0.9% Inj 240 ML IV.CONT PRN ×2 (01:17→10:52)
[2018-05-13] MEDS: Oral Hygiene Kit OROPHARYNG SCH ×4 (01:17→15:09)
[2018-05-13 05:13] LABS: ABG Base Excess 3.8 mmol/L (-2-2); ABG PCO2 37 mmHg (38-42); ABG PO2 115 mmHG (61-120)
[2018-05-13 07:05] LABS: Hematocrit 25.2 % (39.0-51.0); Hemoglobin 8.5 gm/dL (13.0-17.0); Mean Corpuscular HGB Conc 33.7 % (32.0-36.0); Mean Corpuscular Hemoglobin 29.4 pg (27.0-34.0); Mean Corpuscular Volume 87.2 fL (80.0-100.0); Mean Platelet Volume 9.1 fL (7.0-11.0); Platelet Count 265 th/mm3 (150-450); Red Blood Count 2.89 mil/mm3 (4.50-5.90); Red Cell Distribution Width 15.4 % (11.6-17.2); White Blood Count 10.8 th/mm3 (4.0-11.0)
[2018-05-13 07:11] LABS: Prothrombin Time 10.4 sec (9.8-11.6)
[2018-05-13 07:30] LABS: Alanine Aminotransferase 9 U/L (12-78); Alkaline Phosphatase 110 U/L (45-117); Anion Gap 10 meq/L (5-15); Aspartate Aminotransferase 29 U/L (15-37); Blood Urea Nitrogen 46 mg/dL (7-18); Carbon Dioxide 27.9 meq/L (21.0-32.0); Chloride 103 meq/L (98-107); Glomerular Filtration Rate 14 mL/min (>89); Glucose,Random 128 mg/dL (74-106); Magnesium 2.3 mg/dL (1.5-2.5); Phosphorus 4.6 mg/dL (2.5-4.9); Potassium 3.3 meq/L (3.5-5.1); Sodium 141 meq/L (136-145); Total Protein 7.1 g/dL (6.4-8.2)
[2018-05-13] MEDS: Chlorhexidine 0.12% Oral Kit 15 ML UDC OROPHARYNG SCH ×2 (08:20→21:20)
[2018-05-13] MEDS: Senna/Docusate Sodium 8.6/50 MG Tablet PO SCH ×2 (08:21→21:20)
[2018-05-13] MEDS: Enoxaparin Inj 40 MG/0.4 ML Syringe SQ SCH (08:21)
--- NOTE | 2018-05-13 10:10 | P.PNCC ---
Subjective Subjective Remarks/Hospital Course: Patient is 38-year-old male with history of IV drug use, prev endocarditis, Hepatitis C, who presented to the emergency department via [facility] from [place] for acute psychosis and altered mental status. CT of the head done at [place] was negative for acute findings. Patient was very confused and delirious at [facility] ED. His last IV drug use of heroin was 5 days ago. Urine drug screen is pending at this time. ER workup showed multiple abnormalities, pertinent ones being a white count of 16.1 with left shift, troponin 3.24, lactic acid 3.1, CPK of 592, potassium of 3.1. Received 3 L of normal saline in the ED and was given Zosyn and vancomycin. I evaluated the patient in the emergency department. He is confused delirious oriented to person only. He is very tachycardic and dry. Patient appears very critical and septic. With IV drug use patient most likely has recurrence of infective endocarditis. Cardiology consult as well as ID consult had been requested. I will give additional 1 L fluid bolus and continue vancomycin and Zosyn. I will place on Precedex. 2D echo is pending at this time 05/01: Patient remains critically ill confused encephalopathy but slightly better speech. MRI of the brain is pending at this time. CT of the abdomen pelvis showed splenic infarct and probable inflammatory changes of the left perinephric space. CT chest shows bilateral infiltrates. WBC count is elevated 20.4 today. On broad-spectrum antibiotics per ID. Echo pending. MRI brain shows Multifocal bilateral punctate infarcts, suspicious for embolic disease. Blood cx positive 11/29 GPC 05/02: Patient intermittently agitated overnight, Precedex closely started. Currently, speech is improved. Echo official report pending but preliminary no vegetation seen. Will schedule AURELIA. Blood cultures growing staph aureus. Antibiotics narrowed to oxacillin by ID 05/03: Drowsy, easily arousable. remains orally intubated on mech ventilation. 05/06: Reconsulted due to acute altered desaturation on general medical floor. Currently 9% nonrebreather and speaking nonsensically. Patient is currently restrained to the bed with soft restraints. Decision made to intubate. Phone number in chart [phone] is not the mother. No other family available/ second tissue. Attempted to call his cell phone without results. 05/07: Remains intubated sedated very critical. WBC count increasing indicating worsening sepsis. Patient remains encephalopathy. Lumbar spine MRI showed large posterior subcutaneous fluid collection with enhancement-seroma or abscess. No evidence of osteomyelitis or discitis. IR to drain today with further fluid studies. There was questionable seizures overnight EEG preliminary no seizures. Continue fosphenytoin for now 05/08: Remains intubated, off sedation. Creat worsening 2.5 today, UO approx 250 ml in 24 hours despite hydration. Stop IVF, give 40 mg IV Lasix now. Tolerating CPAP , slightly tachypneic 05/09: Patient was extubated yesterday initially did well but currently very tachypneic hypoxemic chest x-ray shows bilateral infiltrate. Also BUN 52 creatinine has worsened to 3.2 with metabolic acidosis bicarb 16. Will attempt a short trial of BiPAP if not improving will proceed with endotracheal intubation. Scheduled with nephrology most likely will need to initiate hemodialysis. 05/10: Reintubated yesterday for severe respiratory distress and respiratory failure, remains critically ill. Currently intubated sedated. BUN/creatinine rising now BUN is 63 with a creatinine of 4.3. Oliguric urine output only 350 mL in 24 hours. WBC count is continues to increase 18.3 today with left shift. Chest x-ray shows evidence of scattered septic emboli Subjective 05/11: remains intubated and sedated. plan for HD today. continues to be significantly volume overloaded. overall guarded prognosis. wbc still uptrending. BRENDA persists. 05/12: intubated and sedated but following commands. IHD again today with good volume removal. hypoxia improving and respiratory function better. PEEP weaned to 7. went apneic on SBT today. 05/13: more awake today. tolerating SBT- no longer apneic. more euvolemic appearing after HD yesterday. wbc downtrending. low K, will replace. Objective Vital Signs / I&O: Vital Signs 05/12/18 10:15 05/12/18 10:30 05/12/18 10:45 Temperature Pulse Rate 92 H 94 H 95 H Respiratory Rate 16 16 17 Blood Pressure 136/89 116/86 117/84 Pulse Oximetry 100 100 100 05/12/18 11:00 05/12/18 11:37 05/12/18 12:00 Temperature 37.8 C H Pulse Rate 96 H 93 H Respiratory Rate 17 16 16 Blood Pressure 134/80 127/65 Pulse Oximetry 100 98 98 05/12/18 13:00 05/12/18 14:00 05/12/18 15:00 Temperature Pulse Rate 86 85 84 Respiratory Rate 16 16 13 Blood Pressure 115/66 129/76 130/76 Pulse Oximetry 99 100 100 05/12/18 15:31 05/12/18 16:00 05/12/18 18:00 Temperature 37.1 C Pulse Rate 92 H 93 H 78 Respiratory Rate 14 21 Blood Pressure 137/82 Pulse Oximetry 100 05/12/18 20:00 05/12/18 20:35 05/12/18 20:39 Temperature Pulse Rate 72 72 Respiratory Rate 18 20 Blood Pressure Pulse Oximetry 99 05/12/18 22:00 05/12/18 22:15 05/12/18 22:30 Temperature 37.7 C H Pulse Rate 73 71 72 Respiratory Rate 18 22 20 Blood Pressure 122/75 119/74 116/70 Pulse Oximetry 100 100 100 05/12/18 22:45 05/12/18 23:00 05/12/18 23:14 Temperature Pulse Rate 71 71 Respiratory Rate 20 21 19 Blood Pressure 120/74 121/74 Pulse Oximetry 100 100 100 05/12/18 23:15 05/12/18 23:30 05/12/18 23:45 Temperature Pulse Rate 71 71 70 Respiratory Rate 20 16 16 Blood Pressure 122/77 122/77 125/78 Pulse Oximetry 100 100 100 05/13/18 00:00 05/13/18 00:15 05/13/18 00:30 Temperature 36.4 C Pulse Rate 74 74 75 Respiratory Rate 16 16 17 Blood Pressure 118/78 122/74 122/76 Pulse Oximetry 100 100 100 05/13/18 00:45 05/13/18 01:00 05/13/18 01:15 Temperature Pulse Rate 72 70 74 Respiratory Rate 16 16 21 Blood Pressure 122/77 121/77 112/67 Pulse Oximetry 100 100 100 05/13/18 01:30 05/13/18 01:45 05/13/18 02:00 Temperature Pulse Rate 72 71 68 Respiratory Rate 16 16 16 Blood Pressure 141/87 H 137/88 135/87 Pulse Oximetry 100 100 100 05/13/18 02:15 05/13/18 02:30 05/13/18 02:45 Temperature Pulse Rate 67 67 74 Respiratory Rate 16 16 16 Blood Pressure 135/88 133/89 130/84 Pulse Oximetry 100 99 100 05/13/18 03:00 05/13/18 03:15 05/13/18 03:30 Temperature Pulse Rate 80 80 74 Respiratory Rate 22 20 16 Blood Pressure 120/82 139/85 133/82 Pulse Oximetry 100 100 100 05/13/18 03:45 05/13/18 03:58 05/13/18 04:00 Temperature Pulse Rate 72 70 70 Respiratory Rate 16 16 16 Blood Pressure 134/87 137/91 H Pulse Oximetry 100 100 100 05/13/18 04:15 05/13/18 04:30 05/13/18 04:45 Temperature Pulse Rate 75 73 72 Respiratory Rate 9 L 16 16 Blood Pressure 133/88 138/89 141/87 H Pulse Oximetry 100 100 100 05/13/18 05:00 05/13/18 05:15 05/13/18 05:30 Temperature Pulse Rate 72 73 80 Respiratory Rate 16 16 17 Blood Pressure 144/90 H 144/93 H 144/92 H Pulse Oximetry 100 100 100 05/13/18 05:45 05/13/18 06:00 05/13/18 06:15 Temperature Pulse Rate 78 73 76 Respiratory Rate 21 16 17 Blood Pressure 139/89 134/88 134/88 Pulse Oximetry 100 100 100 05/13/18 06:30 05/13/18 06:45 05/13/18 07:00 Temperature Pulse Rate 74 77 75 Respiratory Rate 16 18 16 Blood Pressure 134/88 136/89 147/95 H Pulse Oximetry 100 100 100 05/13/18 07:15 05/13/18 07:22 05/13/18 07:30 Temperature Pulse Rate 80 82 Respiratory Rate 26 H 22 28 H Blood Pressure 147/89 H 148/95 H Pulse Oximetry 100 100 100 05/13/18 07:45 05/13/18 08:00 05/13/18 08:15 Temperature 37.1 C Pulse Rate 79 82 81 Respiratory Rate 22 20 21 Blood Pressure 144/90 H 144/89 H 142/84 H Pulse Oximetry 100 100 100 05/13/18 08:30 05/13/18 08:45 05/13/18 09:00 Temperature Pulse Rate 80 80 82 Respiratory Rate 20 22 24 Blood Pressure 144/92 H 134/87 136/87 Pulse Oximetry 100 100 100 05/13/18 09:15 Temperature Pulse Rate 80 Respiratory Rate 23 Blood Pressure 146/92 H Pulse Oximetry 98 Intake & Output 05/12/18 05/13/18 05/13/18 18:59 06:59 18:59 Intake Total 1586 / 1586 1190 / 1190 104 / 104 Output Total 4550 / 4550 25 / 25 Balance -2964 / -2964 1165 / 1165 104 / 104 Weight 85.5 kg Intake: IV 604 / 604 250 / 250 104 / 104 Precedex Inj 1,000 MCG In NS 250 / 250 Inj 240 ML @ 0.2 MCG/KG/HR 4.37 mls/hr IV.CONT TITRATE PRN Rx# :[id number] Precedex Inj 200 MCG In NS Inj 50 / 50 48 ML @ 0.2 MCG/KG/HR 4.37 mls/ hr IV.CONT TITRATE PRN Rx#: [id number] Diprivan 1000 mg/100 ml Inj 1, 100 / 100 000 mg In 100 ml @ 5 MCG/KG/MIN 2.556 mls/hr IV.CONT TITRATE PRN Rx#:[id number] Cerebyx Inj 100 MGPE In NS Inj 104 / 104 104 / 104 50 ML @ 208 mls/hr IV.SIG Q8H [facility] Rx#:[id number] Levaquin 500 mg Premix Inj 500 100 / 100 mg In 100 ml @ 100 mls/hr IV. SIG Q48H [facility] Rx#:[id number] fentaNYL 10 mcg/mL Premix Drip 250 / 250 2,500 mcg In 250 ml @ 50 MCG/HR 5 mls/hr IV.SIG TITRATE PRN Rx #:[id number] Oral 0 / 0 Tube Feeding 482 / 482 540 / 540 Tube Irrigant 0 / 0 Water Bolus Amount 500 / 500 400 / 400 Output: Urine 0 / 0 Urine/Stool Mix 0 / 0 Hemodialysis Amount 4500 / 4500 0 / 0 Urine Amount (Catheter) 50 / 50 25 / 25 Indwelling Urethral Catheter 50 / 50 25 / 25 Gastric Drainage 0 / 0 Right Nare Nasogastric Tube 0 / 0 Other: # Voids 0 # Incontinent Voids 0 Date of Last Bowel Movement 05/09/18 05/09/18 05/09/18 # Bowel Movements 0 # Incontinent Bowel Movements 0 Result Diagrams: 05/13/18 05:54 05/13/18 05:54 Objective Remarks: GENERAL: 38-year-old male who is ill-appearing, somnolent but more arousable today. SKIN: Warm/dry. Multiple tattoos. Multiple skin petechia with stigmata of septic emboli/[place] lesions HEAD: Atraumatic. Normocephalic. EYES: Pupils equal and round. No scleral icterus. Conjunctival splinter hemorrhages present ENT: No nasal bleeding or discharge. Mucous membranes moist. NECK: Trachea midline. No JVD. CARDIOVASCULAR: Tachycardic rate and rhythm. sinus. RESPIRATORY: On PSV 5/5/40%. equal chest rise. GASTROINTESTINAL: Abdomen soft, nontender, nondistended. MUSCULOSKELETAL: No obvious deformities. No clubbing. NEUROLOGICAL: Patient is intubated sedated with propofol and fentanyl. On lightening sedation patient wakes up follows commands. No focal deficits Assessment and Plan - Assessment and Plan Plan: Assessment: 38yM with mitral valve endocarditis and recurrent shock complicated by multi-organ failure. BRENDA persists and likely multifactorial from poor cardiac output from shock and endocarditis along with volume overload from heart failure from valvulopathy. respiratory failure continues and likely combination of septic pulmonary emboli and volume overload. clinically starting to improve. will work towards extubation. still needs volume removal to optimize organ function. highly complex with multiple dysfunctional organ systems. NEURO/Psych: Metabolic encephalopathy- improving. Multifocal bilateral frontal/parietal occipital and cerebellar punctate infarcts , likely septic emboli Polysubstance abuse with withdrawal -Sedated with propofol and fentanyl, able to follow commands on lightening sedation -MRI brain shows Multifocal bilateral punctate infarcts, suspicious for embolic disease. -Neurology Dr. Mike. Continue aspirin 81 mg daily -Supplement multivitamin thiamine and folic acid daily -Watch closely for signs of meningitis/brain abscess from septic emboli -Developed possible seizures, on fosphenytoin -EEG-severe encephalopathy. IR attempted drain lumbar fluid collection-but on ultrasound there was no fluid collection RESP: Acute hypoxemic respiratory failure Pneumonia/septic emboli -Extubated 05/08/2018, reintubated 05/09/2018 for worsening hypoxemic respiratory failure -Albuterol/ipratropium aerosols every 6 hours with albuterol aerosols every 2 hours as needed for dyspnea -Sputum culture negative to date. CT chest 04/30 shows bilateral infiltrates, repeat CT chest if reintubated -Chest x-ray shows numerous bilateral nodular infiltrates - continue daily SBT. - wean to extubate if possible. CV: NSTEMI Mitral valve infective endocarditis Hypertension -(05/03) AURELAI with large mobile density on the anterior leaflet of mitral valve consistent with endocarditis (3cm x 1cm) -Continue aspirin 81 mg daily and carvedilol 3.25 mg twice daily. -As needed nicardipine drip -Avoid statins at this time due to hep C -Elevated troponin may be secondary to coronary artery septic emboli -continue dialysis with volume removal. GI: Hepatitis C -IV famotidine 20 mg twice daily. Change tube feeds to Nepro -Docusate sodium/senna 1 tablet twice daily for bowel regimen -Speech pathology consulted for speech evaluation and swallow evaluation Renal//FEN: Acute kidney injury Hypernatremia Hyperkalemia -BUN/creatinine worsening with oliguria despite medical therapy -HD again today with volume removal. will likely need daily volume removal. -Monitor renal function closely. [place] catheter. Accurate I's and O's -Replace electrolytes as clinically indicated per ICU electrolyte protocol ID: Severe sepsis Mitral valve infective endocarditis H. Flu pneumonia -Antibiotics with ancef per ID added levaquin for H. Flu. -Blood culture with GPC 4 staph aureus -Repeat blood urine and sputum culture sent HEME: Leukocytosis Normocytic anemia -Monitor CBC, coags ENDO: -Electrolyte replacement per protocol -Sliding scale insulin with aspart insulin low regimen every 6 hours PROPH: -Bilateral lower extremity SCDs. famotidine. Enoxaparin 40 mg sq daily LINES: -Utilize peripheral IVs, central line if needed
[2018-05-13] MEDS: Potassium Chloride Inj 20 MEQ in Sodium Chlor 0.9% Inj 100 ML IV.SIG SCH ×2 (10:36→13:37)
--- NOTE | 2018-05-13 11:54 | P.DIET ---
Nutritional Evaluation Type of nutrition evaluation: follow-up Nutrition consult regarding: Tube Feeding Objective - Diagnosis ESTEMI, sepsis, dehydration, hypokalemia - Objective % IBW: 134 (IBW = 148) Body Weight Used for Calculations: IBW (67.3 kg) Energy Needs - Lower Range (kCal/kg): 30 Energy Needs - Upper Range (kCal/kg): 35 Lower Limit kCal/kg (kCals): 2,018 Upper Limit kCal/kg (kCals): 2,356 Lower Limit Protein Factor (Grams per Kg): 1.2 Upper Limit Protein Factor (Grams per Kg): 1.5 Lower Protein Needs (Protein): 81 Upper Protein Needs (Protein): 101 Dietitian Reviewed in Medical Record: Curent medications, Intake & Output, Labs , Medical history, Tube feeding Diet Order: TF only Objective Comments: PMH: IV drug use, previous endocarditis, Hepatitis C Feeding - Current Tube Feeding Tube Feeding Product: Nepro Tube Feeding Method: Pump Tube Feeding Rate: 50 Current kCals Provided by Tube Feedin,160 Current Protein Provided by Tube Feeding (gPRO): 97 Current Free H2O Provided (m/l): 872 Assessment Assessment: Pt remains at high nutritional risk r/t current clinical status. Pt is intubated was extubated 05/08 then reintubated 05/09. He is currently tolerating SBT's, MD hoping to extubate soon. Pt has received HD for fluid removal, 9500mls over past 48 hrs. Current TF Nepro at 50ml/hr is adequate to meet pt's nutritional needs at this time. Will continue to monitor clinical course. Recommendations: TF Nepro @ goal rate 50ml/hr Dietitian to Monitor: Lab values, Intake & Output, Tube feeding tolerance, Weight change, Medical course
--- NOTE | 2018-05-13 17:24 | P.PNNP ---
Subjective Interval history: Patient seen in the afternoon, more alert, not in distress. Physical Exam Vital signs: Vital Signs 05/12/18 18:00 05/12/18 20:00 05/12/18 20:35 Temperature Pulse Rate 78 72 Respiratory Rate 18 Blood Pressure Pulse Oximetry 99 05/12/18 20:39 05/12/18 22:00 05/12/18 22:15 Temperature 99.8 F H Pulse Rate 72 73 71 Respiratory Rate 20 18 22 Blood Pressure 122/75 119/74 Pulse Oximetry 100 100 05/12/18 22:30 05/12/18 22:45 05/12/18 23:00 Temperature Pulse Rate 72 71 71 Respiratory Rate 20 20 21 Blood Pressure 116/70 120/74 121/74 Pulse Oximetry 100 100 100 05/12/18 23:14 05/12/18 23:15 05/12/18 23:30 Temperature Pulse Rate 71 71 Respiratory Rate 19 20 16 Blood Pressure 122/77 122/77 Pulse Oximetry 100 100 100 05/12/18 23:45 05/13/18 00:00 05/13/18 00:15 Temperature 97.6 F Pulse Rate 70 74 74 Respiratory Rate 16 16 16 Blood Pressure 125/78 118/78 122/74 Pulse Oximetry 100 100 100 05/13/18 00:30 05/13/18 00:45 05/13/18 01:00 Temperature Pulse Rate 75 72 70 Respiratory Rate 17 16 16 Blood Pressure 122/76 122/77 121/77 Pulse Oximetry 100 100 100 05/13/18 01:15 05/13/18 01:30 05/13/18 01:45 Temperature Pulse Rate 74 72 71 Respiratory Rate 21 16 16 Blood Pressure 112/67 141/87 H 137/88 Pulse Oximetry 100 100 100 05/13/18 02:00 05/13/18 02:15 05/13/18 02:30 Temperature Pulse Rate 68 67 67 Respiratory Rate 16 16 16 Blood Pressure 135/87 135/88 133/89 Pulse Oximetry 100 100 99 05/13/18 02:45 05/13/18 03:00 05/13/18 03:15 Temperature Pulse Rate 74 80 80 Respiratory Rate 16 22 20 Blood Pressure 130/84 120/82 139/85 Pulse Oximetry 100 100 100 05/13/18 03:30 05/13/18 03:45 09/16/18 03:58 Temperature Pulse Rate 74 72 70 Respiratory Rate 16 16 16 Blood Pressure 133/82 134/87 Pulse Oximetry 100 100 100 05/13/18 04:00 05/13/18 04:15 05/13/18 04:30 Temperature Pulse Rate 70 75 73 Respiratory Rate 16 9 L 16 Blood Pressure 137/91 H 133/88 138/89 Pulse Oximetry 100 100 100 05/13/18 04:45 05/13/18 05:00 05/13/18 05:15 Temperature Pulse Rate 72 72 73 Respiratory Rate 16 16 16 Blood Pressure 141/87 H 144/90 H 144/93 H Pulse Oximetry 100 100 100 05/13/18 05:30 05/13/18 05:45 05/13/18 06:00 Temperature Pulse Rate 80 78 73 Respiratory Rate 17 21 16 Blood Pressure 144/92 H 139/89 134/88 Pulse Oximetry 100 100 100 05/13/18 06:15 05/13/18 06:30 05/13/18 06:45 Temperature Pulse Rate 76 74 77 Respiratory Rate 17 16 18 Blood Pressure 134/88 134/88 136/89 Pulse Oximetry 100 100 100 05/13/18 07:00 05/13/18 07:15 05/13/18 07:22 Temperature Pulse Rate 75 80 Respiratory Rate 16 26 H 22 Blood Pressure 147/95 H 147/89 H Pulse Oximetry 100 100 100 05/13/18 07:30 05/13/18 07:45 05/13/18 08:00 Temperature 98.7 F Pulse Rate 82 79 82 Respiratory Rate 28 H 22 20 Blood Pressure 148/95 H 144/90 H 144/89 H Pulse Oximetry 100 100 100 05/13/18 08:15 05/13/18 08:30 05/13/18 08:45 Temperature Pulse Rate 81 80 80 Respiratory Rate 21 20 22 Blood Pressure 142/84 H 144/92 H 134/87 Pulse Oximetry 100 100 100 05/13/18 09:00 05/13/18 09:15 05/13/18 09:30 Temperature Pulse Rate 82 80 82 Respiratory Rate 24 23 24 Blood Pressure 136/87 146/92 H 146/94 H Pulse Oximetry 100 98 100 05/13/18 09:45 05/13/18 10:00 05/13/18 10:15 Temperature Pulse Rate 80 79 78 Respiratory Rate 18 19 21 Blood Pressure 138/82 138/83 141/86 H Pulse Oximetry 100 100 99 05/13/18 11:00 05/13/18 12:00 05/13/18 13:00 Temperature 98.4 F Pulse Rate 80 84 86 Respiratory Rate 15 27 H 24 Blood Pressure 151/88 H 123/72 131/79 Pulse Oximetry 100 97 97 05/13/18 13:45 05/13/18 14:00 05/13/18 15:00 Temperature Pulse Rate 92 H 91 H 100 H Respiratory Rate 18 27 H 27 H Blood Pressure 145/91 H 164/100 H Pulse Oximetry 100 100 05/13/18 15:02 05/13/18 16:00 05/13/18 17:00 Temperature 98.4 F Pulse Rate 99 H 107 H 109 H Respiratory Rate 23 30 H 21 Blood Pressure 158/96 H 158/96 H 151/95 H Pulse Oximetry 100 99 98 Intake & Output 05/12/18 05/13/18 05/13/18 18:59 06:59 18:59 Intake Total 1586 / 1586 1190 / 1190 648 / 648 Output Total 4550 / 4550 25 / 25 Balance -2964 / -2964 1165 / 1165 648 / 648 Weight 85.5 kg Intake: IV 604 / 604 250 / 250 648 / 648 Precedex Inj 1,000 MCG In NS 250 / 250 274 / 274 Inj 240 ML @ 0.2 MCG/KG/HR 4.37 mls/hr IV.CONT TITRATE PRN Rx# :[id number] Precedex Inj 200 MCG In NS Inj 50 / 50 48 ML @ 0.2 MCG/KG/HR 4.37 mls/ hr IV.CONT TITRATE PRN Rx#: [id number] Diprivan 1000 mg/100 ml Inj 1, 100 / 100 30 / 30 000 mg In 100 ml @ 5 MCG/KG/MIN 2.556 mls/hr IV.CONT TITRATE PRN Rx#:[id number] Cerebyx Inj 100 MGPE In NS Inj 104 / 104 104 / 104 50 ML @ 208 mls/hr IV.SIG Q8H [facility] Rx#:[id number] Levaquin 500 mg Premix Inj 500 100 / 100 mg In 100 ml @ 100 mls/hr IV. SIG Q48H [facility] Rx#:[id number] KCl Inj 20 MEQ In NS Inj 100 ML 110 / 110 @ 55 mls/hr IV.SIG Q2H [facility] Rx# :[id number] Ancef Inj 1,000 MG In NS Inj 100 / 100 100 ML @ 200 mls/hr IV.SIG Q24H [facility] Rx#:[id number] fentaNYL 10 mcg/mL Premix Drip 250 / 250 30 / 30 2,500 mcg In 250 ml @ 50 MCG/HR 5 mls/hr IV.SIG TITRATE PRN Rx #:[id number] Oral 0 / 0 Tube Feeding 482 / 482 540 / 540 Tube Irrigant 0 / 0 Water Bolus Amount 500 / 500 400 / 400 Output: Urine 0 / 0 Urine/Stool Mix 0 / 0 Hemodialysis Amount 4500 / 4500 0 / 0 Urine Amount (Catheter) 50 / 50 25 / 25 Indwelling Urethral Catheter 50 / 50 25 / 25 Gastric Drainage 0 / 0 Right Nare Nasogastric Tube 0 / 0 Other: # Voids 0 # Incontinent Voids 0 Date of Last Bowel Movement 05/09/18 05/09/18 05/09/18 # Bowel Movements 0 # Incontinent Bowel Movements 0 Narrative: GENERAL: Patient is awake, not fully oriented. SKIN: Warm and dry. HEAD: Normocephalic. EYES: No scleral icterus. No injection or drainage. NECK: Supple, trachea midline. No JVD. CARDIOVASCULAR: Regular rate and rhythm without murmurs, gallops, or rubs. RESPIRATORY: Breath sounds equal bilaterally. No accessory muscle use. GASTROINTESTINAL: Abdomen soft, non-tender, nondistended. MUSCULOSKELETAL: No cyanosis, or edema. BACK: Nontender without obvious deformity. No CVA tenderness. - Urinary Catheter Management Condom Cath placed during this visit: no Indwelling Urethral Catheter Cath placed during this visit: yes Reason for continuing: Acute urinary retention Insertion date: 05/06/18 Insertion time: 16:40 Assessment and Plan - Assessment (1) Hypernatremia Code(s): E87.0 - Hyperosmolality and hypernatremia Status: Acute (2) Altered mental status Code(s): R41.82 - Altered mental status, unspecified Status: Acute (3) Endocarditis Code(s): I38 - Endocarditis, valve unspecified Status: Acute (4) Sepsis Code(s): A41.9 - Sepsis, unspecified organism Status: Acute Qualifiers: Sepsis type: sepsis due to unspecified organism Qualified Code(s): A41.9 - Sepsis, unspecified organism (5) Hyponatremia Code(s): E87.1 - Hypo-osmolality and hyponatremia Status: Acute - Plan Patient urine output has declined creatinine remain elevated. 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 Follow BMP. HD done yesterday. BP is stable. Continue HD as needed. HD as needed. Dr. Lino will follow from AM.
[2018-05-14] MEDS: Fosphenytoin Inj 100 MGPE in Sodium Chlor 0.9% Inj 50 ML IV.SIG SCH ×4 (00:16→23:51)
[2018-05-14] MEDS: Carboxymethylcellulose 0.5% Opth Drops 15 ML Bottle EACH EYE SCH ×5 (00:16→23:00)
[2018-05-14] MEDS: Insulin NovoLOG Aspart Correctional Sugar Inj SQ SCH ×5 (00:17→23:55)
[2018-05-14] MEDS: Oral Hygiene Kit OROPHARYNG SCH ×5 (00:17→23:56)
[2018-05-14 06:13] LABS: Hematocrit 22.7 % (39.0-51.0); Hemoglobin 7.7 gm/dL (13.0-17.0); Mean Corpuscular Volume 85.3 fL (80.0-100.0); Mean Platelet Volume 8.7 fL (7.0-11.0); Platelet Count 267 th/mm3 (150-450); Red Blood Count 2.66 mil/mm3 (4.50-5.90); Red Cell Distribution Width 15.1 % (11.6-17.2); White Blood Count 12.2 th/mm3 (4.0-11.0)
[2018-05-14 06:21] LABS: INR 1.1 Ratio; Prothrombin Time 11.4 sec (9.8-11.6)
[2018-05-14 06:48] LABS: Alanine Aminotransferase 8 U/L (12-78); Albumin 1.9 g/dL (3.4-5.0); Alkaline Phosphatase 76 U/L (45-117); Anion Gap 15 meq/L (5-15); Aspartate Aminotransferase 30 U/L (15-37); Blood Urea Nitrogen 61 mg/dL (7-18); Calcium 7.9 mg/dL (8.5-10.1); Carbon Dioxide 24.1 meq/L (21.0-32.0); Chloride 102 meq/L (98-107); Glomerular Filtration Rate 11 mL/min (>89); Glucose,Random 79 mg/dL (74-106); Magnesium 2.3 mg/dL (1.5-2.5); Phosphorus 4.6 mg/dL (2.5-4.9); Potassium 3.3 meq/L (3.5-5.1); Sodium 141 meq/L (136-145); Total Protein 6.8 g/dL (6.4-8.2)
[2018-05-14] MEDS: Chlorhexidine 0.12% Oral Kit 15 ML UDC OROPHARYNG SCH ×2 (08:32→21:32)
[2018-05-14] MEDS: Senna/Docusate Sodium 8.6/50 MG Tablet PO SCH ×2 (08:32→21:32)
[2018-05-14] MEDS: Enoxaparin Inj 40 MG/0.4 ML Syringe SQ SCH (08:32)
--- NOTE | 2018-05-14 10:39 | P.PNCC ---
Subjective Subjective Remarks/Hospital Course: Patient is 38-year-old male with history of IV drug use, prev endocarditis, Hepatitis C, who presented to the emergency department via [facility] from [place] for acute psychosis and altered mental status. CT of the head done at [place] was negative for acute findings. Patient was very confused and delirious at [facility] ED. His last IV drug use of heroin was 5 days ago. Urine drug screen is pending at this time. ER workup showed multiple abnormalities, pertinent ones being a white count of 16.1 with left shift, troponin 3.24, lactic acid 3.1, CPK of 592, potassium of 3.1. Received 3 L of normal saline in the ED and was given Zosyn and vancomycin. I evaluated the patient in the emergency department. He is confused delirious oriented to person only. He is very tachycardic and dry. Patient appears very critical and septic. With IV drug use patient most likely has recurrence of infective endocarditis. Cardiology consult as well as ID consult had been requested. I will give additional 1 L fluid bolus and continue vancomycin and Zosyn. I will place on Precedex. 2D echo is pending at this time 05/01: Patient remains critically ill confused encephalopathy but slightly better speech. MRI of the brain is pending at this time. CT of the abdomen pelvis showed splenic infarct and probable inflammatory changes of the left perinephric space. CT chest shows bilateral infiltrates. WBC count is elevated 20.4 today. On broad-spectrum antibiotics per ID. Echo pending. MRI brain shows Multifocal bilateral punctate infarcts, suspicious for embolic disease. Blood cx positive 11/29 GPC 05/02: Patient intermittently agitated overnight, Precedex closely started. Currently, speech is improved. Echo official report pending but preliminary no vegetation seen. Will schedule AURELIA. Blood cultures growing staph aureus. Antibiotics narrowed to oxacillin by ID 05/03: Drowsy, easily arousable. remains orally intubated on mech ventilation. 05/06: Reconsulted due to acute altered desaturation on general medical floor. Currently 9% nonrebreather and speaking nonsensically. Patient is currently restrained to the bed with soft restraints. Decision made to intubate. Phone number in chart [phone] is not the mother. No other family available/ second tissue. Attempted to call his cell phone without results. 05/07: Remains intubated sedated very critical. WBC count increasing indicating worsening sepsis. Patient remains encephalopathy. Lumbar spine MRI showed large posterior subcutaneous fluid collection with enhancement-seroma or abscess. No evidence of osteomyelitis or discitis. IR to drain today with further fluid studies. There was questionable seizures overnight EEG preliminary no seizures. Continue fosphenytoin for now 05/08: Remains intubated, off sedation. Creat worsening 2.5 today, UO approx 250 ml in 24 hours despite hydration. Stop IVF, give 40 mg IV Lasix now. Tolerating CPAP , slightly tachypneic 05/09: Patient was extubated yesterday initially did well but currently very tachypneic hypoxemic chest x-ray shows bilateral infiltrate. Also BUN 52 creatinine has worsened to 3.2 with metabolic acidosis bicarb 16. Will attempt a short trial of BiPAP if not improving will proceed with endotracheal intubation. Scheduled with nephrology most likely will need to initiate hemodialysis. 05/10: Reintubated yesterday for severe respiratory distress and respiratory failure, remains critically ill. Currently intubated sedated. BUN/creatinine rising now BUN is 63 with a creatinine of 4.3. Oliguric urine output only 350 mL in 24 hours. WBC count is continues to increase 18.3 today with left shift. Chest x-ray shows evidence of scattered septic emboli 05/11: remains intubated and sedated. plan for HD today. continues to be significantly volume overloaded. overall guarded prognosis. wbc still uptrending. BRENDA persists. 05/12: intubated and sedated but following commands. IHD again today with good volume removal. hypoxia improving and respiratory function better. PEEP weaned to 7. went apneic on SBT today. 05/13: more awake today. tolerating SBT- no longer apneic. more euvolemic appearing after HD yesterday. wbc downtrending. low K, will replace. Subjective 05/14: doing well. on room air. needs HD for volume removal. speech eval pending for formal swallow evaluation (multiple reintubations, need to make sure he doesn't have silent aspiration). if speech passes him, may advance diet. if he eats > 50% diet, may d/c NGT. needs to be OOB. clinically starting to improve. Objective Vital Signs / I&O: Vital Signs 05/13/18 11:00 05/13/18 12:00 05/13/18 13:00 Temperature 36.9 C Pulse Rate 80 84 86 Respiratory Rate 15 27 H 24 Blood Pressure 151/88 H 123/72 131/79 Pulse Oximetry 100 97 97 05/13/18 13:45 05/13/18 14:00 05/13/18 15:00 Temperature Pulse Rate 92 H 91 H 100 H Respiratory Rate 18 27 H 27 H Blood Pressure 145/91 H 164/100 H Pulse Oximetry 100 100 05/13/18 15:02 05/13/18 16:00 05/13/18 17:00 Temperature 36.9 C Pulse Rate 99 H 107 H 109 H Respiratory Rate 23 30 H 21 Blood Pressure 158/96 H 158/96 H 151/95 H Pulse Oximetry 100 99 98 05/13/18 18:00 05/13/18 19:00 05/13/18 20:00 Temperature 37.3 C Pulse Rate 104 H 105 H 109 H Respiratory Rate 23 24 27 H Blood Pressure 153/94 H 156/91 H 146/78 H Pulse Oximetry 98 97 97 05/13/18 21:00 05/13/18 22:00 05/13/18 23:00 Temperature Pulse Rate 105 H 104 H 100 H Respiratory Rate 22 16 24 Blood Pressure 156/98 H 156/90 H 151/91 H Pulse Oximetry 97 95 97 05/14/18 00:00 05/14/18 01:00 05/14/18 01:04 Temperature 37.4 C Pulse Rate 100 H 97 H 99 H Respiratory Rate 28 H 27 H 35 H Blood Pressure 155/95 H Pulse Oximetry 96 97 96 05/14/18 02:00 05/14/18 03:00 05/14/18 04:00 Temperature Pulse Rate 95 H 93 H 89 Respiratory Rate 24 25 H 27 H Blood Pressure 142/87 H 148/87 H 152/93 H Pulse Oximetry 97 97 98 05/14/18 05:00 05/14/18 06:00 05/14/18 07:00 Temperature Pulse Rate 91 H 88 87 Respiratory Rate 32 H 29 H 32 H Blood Pressure 150/87 H 150/94 H 142/87 H Pulse Oximetry 98 98 99 05/14/18 07:28 05/14/18 08:00 05/14/18 09:00 Temperature Pulse Rate 92 H 85 Respiratory Rate 29 H 33 H Blood Pressure 167/88 H 150/79 H Pulse Oximetry 99 93 L 97 05/14/18 10:00 Temperature Pulse Rate 80 Respiratory Rate Blood Pressure Pulse Oximetry Intake & Output 05/13/18 05/14/18 05/14/18 18:59 06:59 18:59 Intake Total 1187 / 1187 152 / 152 Output Total 100 / 100 Balance 1087 / 1087 152 / 152 Intake: IV 810 / 810 152 / 152 Precedex Inj 1,000 MCG In NS 274 / 274 Inj 240 ML @ 0.2 MCG/KG/HR 4.37 mls/hr IV.CONT TITRATE PRN Rx# :[id number] Diprivan 1000 mg/100 ml Inj 1, 30 / 30 000 mg In 100 ml @ 5 MCG/KG/MIN 2.556 mls/hr IV.CONT TITRATE PRN Rx#:[id number] Cerebyx Inj 100 MGPE In NS Inj 156 / 156 52 / 52 50 ML @ 208 mls/hr IV.SIG Q8H [facility] Rx#:[id number] KCl Inj 20 MEQ In NS Inj 100 ML 220 / 220 @ 55 mls/hr IV.SIG Q2H [facility] Rx# :[id number] Ancef Inj 1,000 MG In NS Inj 100 / 100 100 / 100 100 ML @ 200 mls/hr IV.SIG Q24H [facility] Rx#:[id number] fentaNYL 10 mcg/mL Premix Drip 30 / 30 2,500 mcg In 250 ml @ 50 MCG/HR 5 mls/hr IV.SIG TITRATE PRN Rx #:[id number] Water Bolus Amount 200 / 200 Other 177 / 177 Output: Urine Amount (Catheter) 100 / 100 Indwelling Urethral Catheter 100 / 100 Other: Other Intake Source Saline Solution Date of Last Bowel Movement 05/13/18 05/14/18 05/14/18 # Bowel Movements 3 Result Diagrams: 05/14/18 05:26 05/14/18 05:26 Objective Remarks: GENERAL: 38-year-old male who is ill-appearing, awake, alert. SKIN: Warm/dry. Multiple tattoos. Multiple skin petechia with stigmata of septic emboli/[place]ay lesions HEAD: Atraumatic. Normocephalic. EYES: Pupils equal and round. No scleral icterus. Conjunctival splinter hemorrhages present ENT: No nasal bleeding or discharge. Mucous membranes moist. NECK: Trachea midline. No JVD. CARDIOVASCULAR: Tachycardic rate and rhythm. sinus. RESPIRATORY: room air. unlabored. equal chest rise. GASTROINTESTINAL: Abdomen soft, nontender, nondistended. MUSCULOSKELETAL: No obvious deformities. No clubbing. NEUROLOGICAL: Patient is awake, RASS -1. follows commands. No focal deficits Assessment and Plan - Assessment and Plan Plan: Assessment: 38yM with mitral valve endocarditis and recurrent shock complicated by multi-organ failure. BRENDA persists and likely multifactorial from poor cardiac output from shock and endocarditis along with volume overload from heart failure from valvulopathy. respiratory status continues to improve. still needs volume removal to optimize organ function. highly complex with multiple dysfunctional organ systems. NEURO/Psych: Metabolic encephalopathy- improving. Multifocal bilateral frontal/parietal occipital and cerebellar punctate infarcts , likely septic emboli Polysubstance abuse with withdrawal -MRI brain shows Multifocal bilateral punctate infarcts, suspicious for embolic disease. -Neurology Dr. Mike. Continue aspirin 81 mg daily -Supplement multivitamin thiamine and folic acid daily -Watch closely for signs of meningitis/brain abscess from septic emboli -Developed possible seizures, on fosphenytoin -EEG-severe encephalopathy. IR attempted drain lumbar fluid collection-but on ultrasound there was no fluid collection RESP: Acute hypoxemic respiratory failure- resolving. Pneumonia/septic emboli -Extubated 05/08/2018, reintubated 05/09/2018 for worsening hypoxemic respiratory failure - extubated 05/13 now on room air. needs aggressive pulmonary toilet. PT consult OOB to chair daily. -Albuterol/ipratropium aerosols every 6 hours with albuterol aerosols every 2 hours as needed for dyspnea -Sputum culture negative to date. CT chest 04/30 shows bilateral infiltrates, repeat CT chest if reintubated -Chest x-ray shows numerous bilateral nodular infiltrates CV: NSTEMI Mitral valve infective endocarditis Hypertension -(05/03) AURELIA with large mobile density on the anterior leaflet of mitral valve consistent with endocarditis (3cm x 1cm) -Continue aspirin 81 mg daily and carvedilol 3.25 mg twice daily. -Avoid statins at this time due to hep C -Elevated troponin may be secondary to coronary artery septic emboli -continue dialysis with volume removal. GI: Hepatitis C -IV famotidine 20 mg twice daily. Change tube feeds to Nepro -Docusate sodium/senna 1 tablet twice daily for bowel regimen -Speech pathology consulted for speech evaluation and swallow evaluation advance diet after speech clears d/c NGT if patient eats > 50% meals. Renal//FEN: Acute kidney injury Hypernatremia Hyperkalemia -BUN/creatinine worsening with oliguria despite medical therapy -HD again today with volume removal. will likely need daily volume removal. -Monitor renal function closely. d/c cifuentes catheter Accurate I's and O's -Replace electrolytes as clinically indicated per ICU electrolyte protocol ID: Severe sepsis Mitral valve infective endocarditis H. Flu pneumonia -Antibiotics with ancef per ID added levaquin for H. Flu. -Blood culture with GPC 4 staph aureus -Repeat blood urine and sputum culture sent HEME: Leukocytosis Normocytic anemia -Monitor CBC, coags ENDO: -Electrolyte replacement per protocol -Sliding scale insulin with aspart insulin low regimen every 6 hours PROPH: -Bilateral lower extremity SCDs. famotidine. Enoxaparin 40 mg sq daily LINES: -Utilize peripheral IVs, central line if needed
--- NOTE | 2018-05-14 13:51 | P.PNNP ---
Subjective Interval history: Doing better off the vent Physical Exam Vital signs: Vital Signs 05/13/18 14:00 05/13/18 15:00 05/13/18 15:02 Temperature Pulse Rate 91 H 100 H 99 H Respiratory Rate 27 H 27 H 23 Blood Pressure 145/91 H 164/100 H 158/96 H Pulse Oximetry 100 100 100 05/13/18 16:00 05/13/18 17:00 05/13/18 18:00 Temperature 98.4 F Pulse Rate 107 H 109 H 104 H Respiratory Rate 30 H 21 23 Blood Pressure 158/96 H 151/95 H 153/94 H Pulse Oximetry 99 98 98 05/13/18 19:00 05/13/18 20:00 05/13/18 21:00 Temperature 99.1 F Pulse Rate 105 H 109 H 105 H Respiratory Rate 24 27 H 22 Blood Pressure 156/91 H 146/78 H 156/98 H Pulse Oximetry 97 97 97 05/13/18 22:00 05/13/18 23:00 05/14/18 00:00 Temperature 99.3 F Pulse Rate 104 H 100 H 100 H Respiratory Rate 16 24 28 H Blood Pressure 156/90 H 151/91 H Pulse Oximetry 95 97 96 05/14/18 01:00 05/14/18 01:04 05/14/18 02:00 Temperature Pulse Rate 97 H 99 H 95 H Respiratory Rate 27 H 35 H 24 Blood Pressure 155/95 H 142/87 H Pulse Oximetry 97 96 97 05/14/18 03:00 05/14/18 04:00 05/14/18 05:00 Temperature Pulse Rate 93 H 89 91 H Respiratory Rate 25 H 27 H 32 H Blood Pressure 148/87 H 152/93 H 150/87 H Pulse Oximetry 97 98 98 05/14/18 06:00 05/14/18 07:00 05/14/18 07:28 Temperature Pulse Rate 88 87 Respiratory Rate 29 H 32 H Blood Pressure 150/94 H 142/87 H Pulse Oximetry 98 99 99 05/14/18 08:00 05/14/18 09:00 05/14/18 10:00 Temperature Pulse Rate 92 H 85 80 Respiratory Rate 29 H 33 H 24 Blood Pressure 167/88 H 150/79 H 153/83 H Pulse Oximetry 93 L 97 99 05/14/18 11:00 05/14/18 12:00 05/14/18 12:03 Temperature Pulse Rate 80 80 80 Respiratory Rate 31 H 25 H Blood Pressure 142/94 H Pulse Oximetry 98 05/14/18 12:05 Temperature 98.9 F Pulse Rate 78 Respiratory Rate 29 H Blood Pressure 161/90 H Pulse Oximetry 97 Intake & Output 05/13/18 05/14/18 05/14/18 18:59 06:59 18:59 Intake Total 1187 / 1187 152 / 152 Output Total 100 / 100 Balance 1087 / 1087 152 / 152 Intake: IV 810 / 810 152 / 152 Precedex Inj 1,000 MCG In NS 274 / 274 Inj 240 ML @ 0.2 MCG/KG/HR 4.37 mls/hr IV.CONT TITRATE PRN Rx# :[id number] Diprivan 1000 mg/100 ml Inj 1, 30 / 30 000 mg In 100 ml @ 5 MCG/KG/MIN 2.556 mls/hr IV.CONT TITRATE PRN Rx#:[id number] Cerebyx Inj 100 MGPE In NS Inj 156 / 156 52 / 52 50 ML @ 208 mls/hr IV.SIG Q8H [facility] Rx#:[id number] KCl Inj 20 MEQ In NS Inj 100 ML 220 / 220 @ 55 mls/hr IV.SIG Q2H [facility] Rx# :[id number] Ancef Inj 1,000 MG In NS Inj 100 / 100 100 / 100 100 ML @ 200 mls/hr IV.SIG Q24H [facility] Rx#:[id number] fentaNYL 10 mcg/mL Premix Drip 30 / 30 2,500 mcg In 250 ml @ 50 MCG/HR 5 mls/hr IV.SIG TITRATE PRN Rx #:[id number] Water Bolus Amount 200 / 200 Other 177 / 177 Output: Urine Amount (Catheter) 100 / 100 Indwelling Urethral Catheter 100 / 100 Other: Other Intake Source Saline Solution Date of Last Bowel Movement 05/13/18 05/14/18 05/14/18 # Bowel Movements 3 - Constitutional no acute distress - Routine HEENT Exam Head: Present: normocephalic - Routine Respiratory Exam Present: CTA bilaterally - Routine Cardiovascular Exam Present: RRR - Routine Abdominal Exam Present: soft - Routine Extremities Exam Present: pulses intact - Urinary Catheter Management Condom Cath placed during this visit: no Indwelling Urethral Catheter Cath placed during this visit: yes, but has since been removed by the nurse Reason for continuing: Decision to DC catheter Insertion date: 05/06/18 Insertion time: 16:40 Removal date: 05/14/18 Removal time: 08:00 Assessment and Plan - Assessment (1) Hypernatremia Code(s): E87.0 - Hyperosmolality and hypernatremia Status: Acute (2) Altered mental status Code(s): R41.82 - Altered mental status, unspecified Status: Acute (3) Endocarditis Code(s): I38 - Endocarditis, valve unspecified Status: Acute (4) Sepsis Code(s): A41.9 - Sepsis, unspecified organism Status: Acute Qualifiers: Sepsis type: sepsis due to unspecified organism Qualified Code(s): A41.9 - Sepsis, unspecified organism (5) Hyponatremia Code(s): E87.1 - Hypo-osmolality and hyponatremia Status: Acute - Plan Patient urine output has declined creatinine remain elevated. 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 Follow BMP. HD done Monday. BP is stable. Continue HD as needed. KCL 20 meq x 1. HD as needed. Next hemodialysis is tomorrow
[2018-05-14] MEDS ORDERED: Potassium Chlor 20 mEq Premix 20 MEQ/100 ML PIGGYBACK IV.SIG ONE (15:00)
[2018-05-14] MEDS: Levofloxacin 500 mg Premix Inj 500 MG/100 ML PIGGYBACK IV.SIG SCH (15:48)
--- NOTE | 2018-05-14 19:08 | P.PNID ---
Subjective Remarks: extubated, doing well oriented fully, talking over the phone and able to hold normal conversation afebrile UOP is minimal remains on HD Sputum with H flue c/o lower back pain 01/04 Antibiotics: ancef Past Medical History: IVDU Allergies/Adverse Reactions: Allergies No Known Allergies Allergy (Unknown, Uncoded 07/13/17 00:28) Objective Vital Signs 05/13/18 20:00 05/13/18 21:00 05/13/18 22:00 Temperature 99.1 F Pulse Rate 109 H 105 H 104 H Respiratory Rate 27 H 22 16 Blood Pressure 146/78 H 156/98 H 156/90 H Pulse Oximetry 97 97 95 05/13/18 23:00 05/14/18 00:00 05/14/18 01:00 Temperature 99.3 F Pulse Rate 100 H 100 H 97 H Respiratory Rate 24 28 H 27 H Blood Pressure 151/91 H Pulse Oximetry 97 96 97 05/14/18 01:04 05/14/18 02:00 05/14/18 03:00 Temperature Pulse Rate 99 H 95 H 93 H Respiratory Rate 35 H 24 25 H Blood Pressure 155/95 H 142/87 H 148/87 H Pulse Oximetry 96 97 97 05/14/18 04:00 05/14/18 05:00 05/14/18 06:00 Temperature Pulse Rate 89 91 H 88 Respiratory Rate 27 H 32 H 29 H Blood Pressure 152/93 H 150/87 H 150/94 H Pulse Oximetry 98 98 98 05/14/18 07:00 05/14/18 07:28 05/14/18 08:00 Temperature Pulse Rate 87 92 H Respiratory Rate 32 H 29 H Blood Pressure 142/87 H 167/88 H Pulse Oximetry 99 99 93 L 05/14/18 09:00 05/14/18 10:00 05/14/18 11:00 Temperature Pulse Rate 85 80 80 Respiratory Rate 33 H 24 31 H Blood Pressure 150/79 H 153/83 H 142/94 H Pulse Oximetry 97 99 98 05/14/18 12:00 05/14/18 12:03 05/14/18 12:05 Temperature 98.9 F Pulse Rate 80 80 78 Respiratory Rate 25 H 29 H Blood Pressure 161/90 H Pulse Oximetry 97 05/14/18 13:00 05/14/18 14:00 05/14/18 14:01 Temperature Pulse Rate 85 97 H 94 H Respiratory Rate 31 H 39 H 38 H Blood Pressure 157/106 H 175/82 H Pulse Oximetry 96 94 L 97 05/14/18 15:00 05/14/18 16:00 05/14/18 18:00 Temperature 99.1 F Pulse Rate 96 H 88 89 Respiratory Rate 30 H 31 H Blood Pressure 147/80 H 154/88 H Pulse Oximetry 94 L 94 L Intake & Output 05/14/18 05/14/18 05/15/18 06:59 18:59 06:59 Intake Total 456 / 456 Balance 456 / 456 Intake: IV 456 / 456 Cerebyx Inj 100 MGPE In NS Inj 156 / 156 50 ML @ 208 mls/hr IV.SIG Q8H [facility] Rx#:[id number] Levaquin 500 mg Premix Inj 500 100 / 100 mg In 100 ml @ 100 mls/hr IV. SIG Q48H [facility] Rx#:[id number] KCl 20 mEq Premix Inj 20 meq In 100 / 100 100 ml @ 50 mls/hr IV.SIG ONCE ONE Rx#:[id number] Ancef Inj 1,000 MG In NS Inj 100 / 100 100 ML @ 200 mls/hr IV.SIG Q24H [facility] Rx#:[id number] Other: Date of Last Bowel Movement 05/14/18 05/14/18 # Bowel Movements 1 05/09/18 14:27 Blood - Peripheral Aerobic Blood Culture - Final No growth in 5 days 05/09/18 14:27 Blood - Peripheral Anaerobic Blood Culture - Final No growth in 5 days 05/09/18 14:33 Blood - Peripheral Aerobic Blood Culture - Final No growth in 5 days 05/09/18 14:33 Blood - Peripheral Anaerobic Blood Culture - Final No growth in 5 days 05/09/18 17:00 Sputum - Endotracheal Gram Stain - Final 05/09/18 17:00 Sputum - Endotracheal Sputum Culture - Final Haemophilus influenzae Lab - Hematology Results 05/13/18 05/14/18 05:54 05:26 WBC 10.8 12.2 H RBC 2.89 L 2.66 L Hgb 8.5 L 7.7 L Hct 25.2 L 22.7 L MCV 87.2 85.3 MCH 29.4 29.0 MCHC 33.7 34.0 RDW 15.4 15.1 Plt Count 265 267 MPV 9.1 8.7 Lab - Chemistry Results 05/13/18 05/13/18 05/13/18 00:19 05:14 05:54 Sodium 141 Potassium 3.3 L Chloride 103 Carbon Dioxide 27.9 Anion Gap 10 BUN 46 H Creatinine 4.60 H Estimated GFR 14 L POC Glucose 143 H 146 H Random Glucose 128 H Calcium 8.0 L Phosphorus 4.6 D Magnesium 2.3 Total Bilirubin 0.5 AST 29 ALT 9 L Alkaline Phosphatase 110 Total Protein 7.1 Albumin 2.0 L 05/13/18 05/13/18 05/13/18 11:23 17:53 23:55 Sodium Potassium Chloride Carbon Dioxide Anion Gap BUN Creatinine Estimated GFR POC Glucose 136 H 98 94 Random Glucose Calcium Phosphorus Magnesium Total Bilirubin AST ALT Alkaline Phosphatase Total Protein Albumin 05/14/18 05/14/18 05/14/18 05:26 05:46 12:28 Sodium 141 Potassium 3.3 L Chloride 102 Carbon Dioxide 24.1 Anion Gap 15 BUN 61 H Creatinine 5.84 H Estimated GFR 11 L POC Glucose 91 91 Random Glucose 79 Calcium 7.9 L Phosphorus 4.6 Magnesium 2.3 Total Bilirubin 0.6 AST 30 ALT 8 L Alkaline Phosphatase 76 Total Protein 6.8 Albumin 1.9 L 05/14/18 17:34 Sodium Potassium Chloride Carbon Dioxide Anion Gap BUN Creatinine Estimated GFR POC Glucose 83 Random Glucose Calcium Phosphorus Magnesium Total Bilirubin AST ALT Alkaline Phosphatase Total Protein Albumin Imaging: ITS Impressions Chest CT 04/30/18 00:00 CONCLUSION: 1. Parenchymal process bilaterally most likely inflammatory and pneumonia. Abdomen/Pelvis CT 04/30/18 08:48 CONCLUSION: 1. 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 2. Haziness in the anterior margins of the perinephric space at the junction of the spleen possibly inflammatory process of uncertain etiology. Head MRI 05/01/18 00:00 CONCLUSION: 1. Multifocal bilateral punctate infarcts, suspicious for embolic disease. 2. No midline shift or mass effect. Lumbar Spine MRI 05/06/18 00:00 CONCLUSION: 1. Large posterior subcutaneous fluid collection with enhancement. This could represent a seroma or abscess. 2. No evidence of osteomyelitis or discitis. Thoracic Spine MRI 05/06/18 00:00 CONCLUSION: 1. Negative thoracic MRI with no evidence of osteomyelitis or discitis. 2. Please see lumbar spine MRI for further details on findings in this region. Head CT 05/06/18 15:42 CONCLUSION: 1. No acute hemorrhage or mass effect. 2. The small bilateral known punctate infarcts seen on the MRI are not distinctly visualized. 3. Mucosal thickening in the ethmoidal air cells, sphenoid sinus and both maxillary sinuses. Abdomen/Bladder Ultrasound 05/08/18 00:00 CONCLUSION: 1. Trace perinephric fluid surrounding the right kidney. 2. Small right pleural effusion. 3. Otherwise normal sonographic appearance of the kidneys without evidence of hydronephrosis. Chest X-Ray 05/12/18 05:00 CONCLUSION: 1. Stable tubes and lines, as above. 2. Significantly improved diffuse patchy bilateral interstitial and alveolar opacities. Physical Exam: GENERAL: NAD SKIN: Warm and dry. evolving extensive petechial and [place]ay lesions HEAD: Atraumatic. Normocephalic. EYES: Pupils equal and round. No scleral icterus. No injection or drainage. evolvinhg conjunctival hmrgs ENT: No nasal bleeding or discharge. Mucous membranes pink and moist. NECK: Trachea midline. No JVD. CARDIOVASCULAR: Regular rate and rhythm. RESPIRATORY: No accessory muscle use. Clear to auscultation. Breath sounds equal bilaterally. GASTROINTESTINAL: Abdomen soft, non-tender, nondistended. Hepatic and splenic margins not palpable. MUSCULOSKELETAL: Extremities without clubbing, cyanosis, or edema. No obvious deformities. NEUROLOGICAL: awake, oriented x 3, normla speech follows commands all 4 extremeities PSYCHIATRIC: unable to assess Assessment and Plan - Plan mitral valve endocariditis with a 3 cm vegetations Multiple embolic strokes brain septic emboli ARF, anuric, on HD urine eosinophils+ acute VDRF: resolved ? Soft tissue abscess L area - not present on US PNA, H flu - cont cefazoline adjusted renally anticipate 6 weeks from 1st negative blood clx unless metastatic infections will require longer tx duration - might need to repeat lower back imaging - add levofloxacin for H flu x 7 days total dw RN
[2018-05-15 06:52] LABS: Hematocrit 22.4 % (39.0-51.0); Hemoglobin 7.4 gm/dL (13.0-17.0); Mean Corpuscular HGB Conc 32.9 % (32.0-36.0); Mean Corpuscular Hemoglobin 28.2 pg (27.0-34.0); Mean Corpuscular Volume 85.9 fL (80.0-100.0); Mean Platelet Volume 8.4 fL (7.0-11.0); Platelet Count 299 th/mm3 (150-450); Red Blood Count 2.61 mil/mm3 (4.50-5.90); Red Cell Distribution Width 15.5 % (11.6-17.2); White Blood Count 13.5 th/mm3 (4.0-11.0)
[2018-05-15 07:01] LABS: INR 1.2 Ratio
[2018-05-15 07:26] LABS: Albumin 1.9 g/dL (3.4-5.0); Anion Gap 15 meq/L (5-15); Aspartate Aminotransferase 35 U/L (15-37); Blood Urea Nitrogen 69 mg/dL (7-18); Calcium 7.7 mg/dL (8.5-10.1); Carbon Dioxide 20.6 meq/L (21.0-32.0); Chloride 98 meq/L (98-107); Glomerular Filtration Rate 9 mL/min (>89); Glucose,Random 99 mg/dL (74-106); Potassium 3.2 meq/L (3.5-5.1); Sodium 134 meq/L (136-145)
[2018-05-15 07:28] LABS: Alkaline Phosphatase 74 U/L (45-117); Phosphorus 3.8 mg/dL (2.5-4.9); Total Protein 6.6 g/dL (6.4-8.2)
[2018-05-15] MEDS: Oral Hygiene Kit OROPHARYNG SCH ×3 (07:42→15:45)
[2018-05-15] MEDS: Carboxymethylcellulose 0.5% Opth Drops 15 ML Bottle EACH EYE SCH ×4 (07:42→23:07)
[2018-05-15] MEDS: Insulin NovoLOG Aspart Correctional Sugar Inj SQ SCH ×3 (07:43→18:33)
[2018-05-15] MEDS: Fosphenytoin Inj 100 MGPE in Sodium Chlor 0.9% Inj 50 ML IV.SIG SCH ×2 (08:10→16:07)
[2018-05-15] MEDS: Chlorhexidine 0.12% Oral Kit 15 ML UDC OROPHARYNG SCH ×2 (08:11→20:42)
[2018-05-15] MEDS: Enoxaparin Inj 40 MG/0.4 ML Syringe SQ SCH (08:12)
[2018-05-15] MEDS: Senna/Docusate Sodium 8.6/50 MG Tablet PO SCH ×2 (08:12→20:41)
[2018-05-15] MEDS ORDERED: Potassium Bicarbonate 25 MEQ Effervescent Tablet PO ONE (08:15)
[2018-05-15] MEDS: Loperamide 2 MG Capsule PO PRN ×3 (08:41→21:29)
[2018-05-15] MEDS: Heparin 10,000 UNITS/10 ML Vial (for IV use) OTHER PRN (10:54)
--- NOTE | 2018-05-15 11:02 | P.PNNP ---
Subjective Interval history: Patient complains of abdominal pain and diarrhea Physical Exam Vital signs: Vital Signs 05/14/18 12:00 05/14/18 12:03 05/14/18 12:05 Temperature 98.9 F Pulse Rate 80 80 78 Respiratory Rate 25 H 29 H Blood Pressure 161/90 H Pulse Oximetry 97 05/14/18 13:00 05/14/18 14:00 05/14/18 14:01 Temperature Pulse Rate 85 97 H 94 H Respiratory Rate 31 H 39 H 38 H Blood Pressure 157/106 H 175/82 H Pulse Oximetry 96 94 L 97 05/14/18 15:00 05/14/18 16:00 05/14/18 17:00 Temperature 99.1 F Pulse Rate 96 H 88 91 H Respiratory Rate 30 H 31 H 37 H Blood Pressure 147/80 H 154/88 H 163/95 H Pulse Oximetry 94 L 94 L 94 L 05/14/18 18:00 05/14/18 18:13 05/14/18 19:00 Temperature Pulse Rate 93 H 95 H 95 H Respiratory Rate 39 H 22 29 H Blood Pressure 155/111 H 140/87 151/93 H Pulse Oximetry 93 L 94 L 95 05/14/18 20:00 05/14/18 21:00 05/14/18 22:00 Temperature 99.8 F H 99.9 F H Pulse Rate 97 H 95 H 94 H Respiratory Rate 38 H 38 H 42 H Blood Pressure 164/96 H 171/89 H 173/90 H Pulse Oximetry 94 L 93 L 93 L 05/14/18 23:00 05/15/18 00:00 05/15/18 01:00 Temperature 99.2 F Pulse Rate 95 H 90 91 H Respiratory Rate 32 H 42 H 7 L Blood Pressure 147/82 H 156/87 H 149/85 H Pulse Oximetry 94 L 93 L 94 L 05/15/18 02:00 05/15/18 03:00 05/15/18 04:00 Temperature 99.8 F H Pulse Rate 91 H 91 H 91 H Respiratory Rate 41 H 42 H 48 H Blood Pressure 153/87 H 162/99 H 153/75 H Pulse Oximetry 94 L 96 93 L 05/15/18 05:00 05/15/18 06:00 05/15/18 07:00 Temperature Pulse Rate 95 H 91 H 94 H Respiratory Rate 43 H 39 H 33 H Blood Pressure 174/99 H 135/79 Pulse Oximetry 94 L 95 95 05/15/18 07:01 05/15/18 07:10 05/15/18 08:00 Temperature Pulse Rate 94 H 91 H Respiratory Rate 38 H Blood Pressure 153/128 H 173/98 H Pulse Oximetry 95 95 94 L 05/15/18 09:00 05/15/18 09:01 05/15/18 10:00 Temperature Pulse Rate 91 H 89 86 Respiratory Rate Blood Pressure 153/83 H 145/82 H Pulse Oximetry 95 94 L 97 Intake & Output 05/14/18 05/15/18 05/15/18 18:59 06:59 18:59 Intake Total 456 / 456 872 / 872 52 / 52 Output Total 800 / 800 Balance 456 / 456 72 / 72 52 / 52 Weight 79.5 kg Intake: IV 456 / 456 152 / 152 52 / 52 Cerebyx Inj 100 MGPE In NS Inj 156 / 156 52 / 52 52 / 52 50 ML @ 208 mls/hr IV.SIG Q8H STEFFANIE Rx#:[id number] Levaquin 500 mg Premix Inj 500 100 / 100 mg In 100 ml @ 100 mls/hr IV. SIG Q48H STEFFANIE Rx#:[id number] KCl 20 mEq Premix Inj 20 meq In 100 / 100 100 ml @ 50 mls/hr IV.SIG ONCE ONE Rx#:[id number] Ancef Inj 1,000 MG In NS Inj 100 / 100 100 / 100 100 ML @ 200 mls/hr IV.SIG Q24H STEFFANIE Rx#:[id number] Oral 720 / 720 Output: Urine 800 / 800 Other: # Voids 3 Date of Last Bowel Movement 05/14/18 05/15/18 05/15/18 # Bowel Movements 1 # Incontinent Bowel Movements 6 Narrative: GENERAL: Patient is awake, not fully oriented. SKIN: Warm and dry. HEAD: Normocephalic. EYES: No scleral icterus. No injection or drainage. NECK: Supple, trachea midline. No JVD. CARDIOVASCULAR: Regular rate and rhythm without murmurs, gallops, or rubs. RESPIRATORY: Breath sounds equal bilaterally. No accessory muscle use. GASTROINTESTINAL: Abdomen Mildly tender, nondistended. MUSCULOSKELETAL: No cyanosis, or edema. - Urinary Catheter Management Condom Cath placed during this visit: no Indwelling Urethral Catheter Cath placed during this visit: yes, but has since been removed by the nurse Reason for continuing: Decision to DC catheter Insertion date: 05/06/18 Insertion time: 16:40 Removal date: 05/14/18 Removal time: 08:00 Assessment and Plan - Assessment (1) Hypernatremia Code(s): E87.0 - Hyperosmolality and hypernatremia Status: Acute (2) Altered mental status Code(s): R41.82 - Altered mental status, unspecified Status: Acute (3) Endocarditis Code(s): I38 - Endocarditis, valve unspecified Status: Acute (4) Sepsis Code(s): A41.9 - Sepsis, unspecified organism Status: Acute Qualifiers: Sepsis type: sepsis due to unspecified organism Qualified Code(s): A41.9 - Sepsis, unspecified organism (5) Hyponatremia Code(s): E87.1 - Hypo-osmolality and hyponatremia Status: Acute - Plan Patient urine output has declined creatinine remain elevated. 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 Follow BMP. HD Seen during hemodialysis complaining of abdominal pain tolerating ultrafiltration of 3 L BP is stable. C. difficile ordered Continue HD as needed. HD as needed. hemodialysis is Monday and Monday
--- NOTE | 2018-05-15 13:23 | P.PNIM ---
Subjective Interval history: Ceftin dialysis. He reports vague generalized abdominal pain. Multiple bouts of watery diarrhea. Denies any chest pain or shortness of breath. Physical Exam Vital signs: Vital Signs 05/14/18 14:00 05/14/18 14:01 05/14/18 15:00 Temperature Pulse Rate 97 H 94 H 96 H Respiratory Rate 39 H 38 H 30 H Blood Pressure 175/82 H 147/80 H Pulse Oximetry 94 L 97 94 L 05/14/18 16:00 05/14/18 17:00 05/14/18 18:00 Temperature 99.1 F Pulse Rate 88 91 H 93 H Respiratory Rate 31 H 37 H 39 H Blood Pressure 154/88 H 163/95 H 155/111 H Pulse Oximetry 94 L 94 L 93 L 05/14/18 18:13 05/14/18 19:00 05/14/18 20:00 Temperature 99.8 F H Pulse Rate 95 H 95 H 97 H Respiratory Rate 22 29 H 38 H Blood Pressure 140/87 151/93 H 164/96 H Pulse Oximetry 94 L 95 94 L 05/14/18 21:00 05/14/18 22:00 05/14/18 23:00 Temperature 99.9 F H Pulse Rate 95 H 94 H 95 H Respiratory Rate 38 H 42 H 32 H Blood Pressure 171/89 H 173/90 H 147/82 H Pulse Oximetry 93 L 93 L 94 L 05/15/18 00:00 05/15/18 01:00 05/15/18 02:00 Temperature 99.2 F Pulse Rate 90 91 H 91 H Respiratory Rate 42 H 7 L 41 H Blood Pressure 156/87 H 149/85 H 153/87 H Pulse Oximetry 93 L 94 L 94 L 05/15/18 03:00 05/15/18 04:00 05/15/18 05:00 Temperature 99.8 F H Pulse Rate 91 H 91 H 95 H Respiratory Rate 42 H 48 H 43 H Blood Pressure 162/99 H 153/75 H 174/99 H Pulse Oximetry 96 93 L 94 L 05/15/18 06:00 05/15/18 07:00 05/15/18 07:01 Temperature Pulse Rate 91 H 94 H 94 H Respiratory Rate 39 H 33 H 38 H Blood Pressure 135/79 153/128 H Pulse Oximetry 95 95 95 05/15/18 07:10 05/15/18 08:00 05/15/18 09:00 Temperature Pulse Rate 91 H 91 H Respiratory Rate Blood Pressure 173/98 H Pulse Oximetry 95 94 L 95 05/15/18 09:01 05/15/18 10:00 Temperature Pulse Rate 89 86 Respiratory Rate Blood Pressure 153/83 H 145/82 H Pulse Oximetry 94 L 97 Intake & Output 05/14/18 05/15/18 05/15/18 18:59 06:59 18:59 Intake Total 456 / 456 872 / 872 52 / 52 Output Total 800 / 800 100 / 100 Balance 456 / 456 72 / 72 -48 / -48 Weight 79.5 kg Intake: IV 456 / 456 152 / 152 52 / 52 Cerebyx Inj 100 MGPE In NS Inj 156 / 156 52 / 52 52 / 52 50 ML @ 208 mls/hr IV.SIG Q8H STEFFANIE Rx#:[id number] Levaquin 500 mg Premix Inj 500 100 / 100 mg In 100 ml @ 100 mls/hr IV. SIG Q48H STEFFANIE Rx#:[id number] KCl 20 mEq Premix Inj 20 meq In 100 / 100 100 ml @ 50 mls/hr IV.SIG ONCE ONE Rx#:[id number] Ancef Inj 1,000 MG In NS Inj 100 / 100 100 / 100 100 ML @ 200 mls/hr IV.SIG Q24H STEFFANIE Rx#:[id number] Oral 720 / 720 Output: Urine 800 / 800 100 / 100 Other: # Voids 3 Date of Last Bowel Movement 05/14/18 05/15/18 05/15/18 # Bowel Movements 1 5 # Incontinent Bowel Movements 6 Narrative: GENERAL: Awake, alert. Not oriented to date. SKIN: Warm and dry. HEAD: Normocephalic. EYES: No scleral icterus. No injection or drainage. NECK: Supple, trachea midline. No JVD. CARDIOVASCULAR: Regular rate and rhythm without murmurs, gallops, or rubs. RESPIRATORY: Breath sounds equal bilaterally. No accessory muscle use. GASTROINTESTINAL: Abdomen Mildly tender, nondistended. MUSCULOSKELETAL: No cyanosis, or edema. - Urinary Catheter Management Condom Cath placed during this visit: no Indwelling Urethral Catheter Cath placed during this visit: yes, but has since been removed by the nurse Reason for continuing: Decision to DC catheter Insertion date: 05/06/18 Insertion time: 16:40 Removal date: 05/14/18 Removal time: 08:00 Results - Labs CBC & Chem 7: 05/15/18 06:05 05/15/18 06:05 Laboratory Results - last 24 hr 05/14/18 05/14/18 05/15/18 17:34 23:48 05:43 WBC RBC Hgb Hct MCV MCH MCHC RDW Plt Count MPV PT INR Sodium Potassium Chloride Carbon Dioxide Anion Gap BUN Creatinine Estimated GFR POC Glucose 83 136 H 116 H Random Glucose Calcium Phosphorus Magnesium Total Bilirubin AST ALT Alkaline Phosphatase Total Protein Albumin 05/15/18 05/15/18 05/15/18 06:05 06:05 06:05 WBC 13.5 H RBC 2.61 L Hgb 7.4 L Hct 22.4 L MCV 85.9 MCH 28.2 MCHC 32.9 RDW 15.5 Plt Count 299 MPV 8.4 PT 12.0 H INR 1.2 Sodium 134 L Potassium 3.2 L Chloride 98 Carbon Dioxide 20.6 L Anion Gap 15 BUN 69 H Creatinine 6.59 H Estimated GFR 9 L POC Glucose Random Glucose 99 Calcium 7.7 L Phosphorus 3.8 Magnesium 2.0 Total Bilirubin 0.5 AST 35 ALT Less than 6 L Alkaline Phosphatase 74 Total Protein 6.6 Albumin 1.9 L 05/15/18 11:38 WBC RBC Hgb Hct MCV MCH MCHC RDW Plt Count MPV PT INR Sodium Potassium Chloride Carbon Dioxide Anion Gap BUN Creatinine Estimated GFR POC Glucose 95 Random Glucose Calcium Phosphorus Magnesium Total Bilirubin AST ALT Alkaline Phosphatase Total Protein Albumin Microbiology 05/09/18 14:27 Blood - Peripheral Aerobic Blood Culture - Final No growth in 5 days 05/09/18 14:27 Blood - Peripheral Anaerobic Blood Culture - Final No growth in 5 days 05/09/18 14:33 Blood - Peripheral Aerobic Blood Culture - Final No growth in 5 days 05/09/18 14:33 Blood - Peripheral Anaerobic Blood Culture - Final No growth in 5 days - Procedures AURELIA Assessment and Plan - Plan Acute metabolic encephalopathy Multifocal bilateral punctate infarcts, probable septic emboli Polysubstance abuse with withdrawal -Off Precedex. -MRI brain shows Multifocal bilateral punctate infarcts, suspicious for embolic disease. -Neurology consult for embolic bilateral infarcts. Dr. Mike. Continue aspirin -Watch closely for drug withdrawal -Supplement multivitamin thiamine -Watch closely for signs of meningitis/brain abscess from septic emboli -PT OOB = 05/15. Will start low-dose Suboxone for suspected withdrawal. Continue to monitor. RESP: Respiratory insufficiency Pneumonia/septic emboli -DuoNeb every 6 hours as needed -Sputum culture if available -CT chest shows bilateral infiltrates =cont antibiotics. Haemophilus influenza. ID following. Appreciate assistance. CV: Lactic acidosis NSTEMI Infective endocarditis -s/p Normal saline IV fluids 4L bolus -2d echo report prelim negative, cardiology consult Dr. Martines -AURELIA shows large mitral valve vegetation (05/03) -Continue aspirin carvedilol. Avoid statins at this time due to hep C -Elevated troponin may be secondary to coronary artery septic emboli GI: Hepatitis C -O/p f/u -Speech pathology consulted for speech evaluation and swallow evaluation : Renal insufficiency -Monitor renal function closely. Dc [place] catheter. Fluid resuscitation as above Hypokalemia. = 05/15. Potassium 3.2. As per nephrology. Hyponatremia. As per nephrology. ID: Severe sepsis MSSA infective endocarditis Haemophilus influenza pneumonia. -Oxacillin 05/01/18 -Blood urine and sputum cultures -Blood culture with GPC 4 staph aureus = Continue broad-spectrum antibiotics as per infectious disease. Appreciate assistance. HEME: -Monitor CBC, coags ENDO: -Electrolyte replacement per protocol -Sliding scale insulin if needed PROPH: -Bilateral lower extremity SCDs. Lovenox 40 mg sq daily LINES: -Utilize peripheral IVs, central line if needed Discharge Planning: - Self-pay Continues on IV antibiotics. difficult dc.
[2018-05-15] MEDS ORDERED: Buprenorphine/Naloxone 8/2 MG Sublingual Tablet SL SCH (15:00)
[2018-05-15] MEDS ORDERED: Buprenorphine/Naloxone 8/2 MG Sublingual Tablet SL ONE (17:45)
[2018-05-16] MEDS: Fosphenytoin Inj 100 MGPE in Sodium Chlor 0.9% Inj 50 ML IV.SIG SCH ×4 (00:14→23:22)
[2018-05-16] MEDS: Insulin NovoLOG Aspart Correctional Sugar Inj SQ SCH ×4 (00:28→17:14)
[2018-05-16] MEDS: Oral Hygiene Kit OROPHARYNG SCH ×4 (00:28→16:06)
[2018-05-16] MEDS: Loperamide 2 MG Capsule PO PRN ×2 (03:29→15:27)
[2018-05-16 03:58] LABS: Hematocrit 23.2 % (39.0-51.0); Hemoglobin 7.8 gm/dL (13.0-17.0); Mean Corpuscular HGB Conc 33.7 % (32.0-36.0); Mean Corpuscular Hemoglobin 28.9 pg (27.0-34.0); Mean Corpuscular Volume 85.5 fL (80.0-100.0); Mean Platelet Volume 8.2 fL (7.0-11.0); Platelet Count 302 th/mm3 (150-450); Red Blood Count 2.72 mil/mm3 (4.50-5.90); Red Cell Distribution Width 15.5 % (11.6-17.2); White Blood Count 12.1 th/mm3 (4.0-11.0)
[2018-05-16 04:13] LABS: INR 1.4 Ratio; Prothrombin Time 14.1 sec (9.8-11.6)
[2018-05-16 04:28] LABS: Alkaline Phosphatase 77 U/L (45-117); Anion Gap 12 meq/L (5-15); Aspartate Aminotransferase 32 U/L (15-37); Blood Urea Nitrogen 35 mg/dL (7-18); Calcium 7.8 mg/dL (8.5-10.1); Carbon Dioxide 27.1 meq/L (21.0-32.0); Chloride 95 meq/L (98-107); Glomerular Filtration Rate 14 mL/min (>89); Glucose,Random 98 mg/dL (74-106); Magnesium 1.7 mg/dL (1.5-2.5); Potassium 3.4 meq/L (3.5-5.1); Sodium 134 meq/L (136-145)
[2018-05-16] MEDS: Carboxymethylcellulose 0.5% Opth Drops 15 ML Bottle EACH EYE SCH ×4 (04:35→23:05)
[2018-05-16] MEDS: Chlorhexidine 0.12% Oral Kit 15 ML UDC OROPHARYNG SCH ×2 (08:44→20:29)
[2018-05-16] MEDS: Senna/Docusate Sodium 8.6/50 MG Tablet PO SCH ×2 (08:45→20:32)
[2018-05-16] MEDS ORDERED: Etomidate Inj 40 MG/20 ML Vial IV.PUSH ONE (12:02)
[2018-05-16] MEDS: Levofloxacin 500 mg Premix Inj 500 MG/100 ML PIGGYBACK IV.SIG SCH (13:59)
--- NOTE | 2018-05-16 14:49 | P.PNNP ---
Physical Exam Vital signs: Vital Signs 05/15/18 15:00 05/15/18 15:02 05/15/18 15:19 Temperature Pulse Rate 104 H 100 H 96 H Respiratory Rate Blood Pressure 159/102 H Pulse Oximetry 97 99 98 05/15/18 15:36 05/15/18 15:38 05/15/18 16:00 Temperature Pulse Rate 95 H 94 H 99 H Respiratory Rate Blood Pressure 162/82 H 164/88 H Pulse Oximetry 100 99 05/15/18 17:00 05/15/18 18:00 05/15/18 19:00 Temperature Pulse Rate 95 H 97 H 99 H Respiratory Rate 32 H 34 H 37 H Blood Pressure 163/84 H 154/86 H 156/83 H Pulse Oximetry 99 98 97 05/15/18 20:00 05/15/18 21:00 05/15/18 22:00 Temperature 100.3 F H Pulse Rate 104 H 104 H 104 H Respiratory Rate 34 H 36 H 33 H Blood Pressure 155/86 H 159/97 H 133/87 Pulse Oximetry 97 98 87 L 05/15/18 23:00 05/15/18 23:51 05/16/18 00:00 Temperature Pulse Rate 97 H 99 H Respiratory Rate 32 H 38 H Blood Pressure 144/88 H 163/91 H Pulse Oximetry 97 97 96 05/16/18 01:00 05/16/18 02:00 05/16/18 02:01 Temperature Pulse Rate 98 H 95 H 98 H Respiratory Rate 35 H 35 H 42 H Blood Pressure 140/97 H 154/86 H Pulse Oximetry 92 L 97 97 05/16/18 03:00 05/16/18 04:00 05/16/18 06:00 Temperature Pulse Rate 97 H 98 H 98 H Respiratory Rate 34 H 30 H Blood Pressure 152/79 H 154/93 H Pulse Oximetry 96 96 05/16/18 07:00 05/16/18 08:00 05/16/18 08:04 Temperature Pulse Rate 100 H 92 H Respiratory Rate Blood Pressure 168/97 H 167/96 H Pulse Oximetry 95 98 95 05/16/18 09:00 05/16/18 10:00 05/16/18 11:00 Temperature Pulse Rate 98 H 97 H 93 H Respiratory Rate Blood Pressure 170/100 H 138/82 131/78 Pulse Oximetry 98 95 97 Intake & Output 05/15/18 05/16/18 05/16/18 18:59 06:59 18:59 Intake Total 104 / 104 1152 / 1152 52 / 52 Output Total 3200 / 3200 175 / 175 200 / 200 Balance -3096 / -3096 977 / 977 -148 / -148 Weight 90 kg Intake: IV 104 / 104 152 / 152 52 / 52 Cerebyx Inj 100 MGPE In NS Inj 104 / 104 52 / 52 52 / 52 50 ML @ 208 mls/hr IV.SIG Q8H STEFF[facility]IE Rx#:[id number] Ancef Inj 1,000 MG In NS Inj 100 / 100 100 ML @ 200 mls/hr IV.SIG Q24H STEFFANIE Rx#:[id number] Oral 1000 / 1000 Output: Urine 200 / 200 175 / 175 200 / 200 Hemodialysis Amount 3000 / 3000 Other: # Voids 2 Date of Last Bowel Movement 05/15/18 05/15/18 05/16/18 # Bowel Movements 5 Narrative: GENERAL: Awake, alert. Not oriented to date. SKIN: Warm and dry. HEAD: Normocephalic. EYES: No scleral icterus. No injection or drainage. NECK: Supple, trachea midline. No JVD. CARDIOVASCULAR: Regular rate and rhythm without murmurs, gallops, or rubs. RESPIRATORY: Breath sounds equal bilaterally. No accessory muscle use. GASTROINTESTINAL: Abdomen Mildly tender, nondistended. MUSCULOSKELETAL: No cyanosis, or edema. - Urinary Catheter Management Condom Cath placed during this visit: no Indwelling Urethral Catheter Cath placed during this visit: yes, but has since been removed by the nurse Reason for continuing: Decision to DC catheter Insertion date: 05/06/18 Insertion time: 16:40 Removal date: 05/14/18 Removal time: 08:00 Assessment and Plan - Assessment (1) Hypernatremia Code(s): E87.0 - Hyperosmolality and hypernatremia Status: Acute (2) Altered mental status Code(s): R41.82 - Altered mental status, unspecified Status: Acute (3) Endocarditis Code(s): I38 - Endocarditis, valve unspecified Status: Acute (4) Sepsis Code(s): A41.9 - Sepsis, unspecified organism Status: Acute Qualifiers: Sepsis type: sepsis due to unspecified organism Qualified Code(s): A41.9 - Sepsis, unspecified organism (5) Hyponatremia Code(s): E87.1 - Hypo-osmolality and hyponatremia Status: Acute - Plan Patient urine output has declined creatinine remain elevated. 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 Follow BMP. c diff neg HD as needed. hemodialysis is Monday and Monday
--- NOTE | 2018-05-16 15:16 | P.PNIM ---
Subjective Interval history: Patient says he is feeling a little better than yesterday. Reports pain all over. He thinks he might be withdrawing. Physical Exam Vital signs: Vital Signs 05/15/18 15:19 05/15/18 15:36 05/15/18 15:38 Temperature Pulse Rate 96 H 95 H 94 H Respiratory Rate Blood Pressure 159/102 H 162/82 H Pulse Oximetry 98 100 05/15/18 16:00 05/15/18 17:00 05/15/18 18:00 Temperature Pulse Rate 99 H 95 H 97 H Respiratory Rate 32 H 34 H Blood Pressure 164/88 H 163/84 H 154/86 H Pulse Oximetry 99 99 98 05/15/18 19:00 05/15/18 20:00 05/15/18 21:00 Temperature 100.3 F H Pulse Rate 99 H 104 H 104 H Respiratory Rate 37 H 34 H 36 H Blood Pressure 156/83 H 155/86 H 159/97 H Pulse Oximetry 97 97 98 05/15/18 22:00 05/15/18 23:00 05/15/18 23:51 Temperature Pulse Rate 104 H 97 H Respiratory Rate 33 H 32 H Blood Pressure 133/87 144/88 H Pulse Oximetry 87 L 97 97 05/16/18 00:00 05/16/18 01:00 05/16/18 02:00 Temperature Pulse Rate 99 H 98 H 95 H Respiratory Rate 38 H 35 H 35 H Blood Pressure 163/91 H 140/97 H Pulse Oximetry 96 92 L 97 05/16/18 02:01 05/16/18 03:00 05/16/18 04:00 Temperature Pulse Rate 98 H 97 H 98 H Respiratory Rate 42 H 34 H 30 H Blood Pressure 154/86 H 152/79 H 154/93 H Pulse Oximetry 97 96 96 05/16/18 06:00 05/16/18 07:00 05/16/18 08:00 Temperature Pulse Rate 98 H 100 H 92 H Respiratory Rate Blood Pressure 168/97 H 167/96 H Pulse Oximetry 95 98 05/16/18 08:04 05/16/18 09:00 05/16/18 10:00 Temperature Pulse Rate 98 H 97 H Respiratory Rate Blood Pressure 170/100 H 138/82 Pulse Oximetry 95 98 95 05/16/18 11:00 Temperature Pulse Rate 93 H Respiratory Rate Blood Pressure 131/78 Pulse Oximetry 97 Intake & Output 05/15/18 05/16/18 05/16/18 18:59 06:59 18:59 Intake Total 104 / 104 1152 / 1152 52 / 52 Output Total 3200 / 3200 175 / 175 200 / 200 Balance -3096 / -3096 977 / 977 -148 / -148 Weight 90 kg Intake: IV 104 / 104 152 / 152 52 / 52 Cerebyx Inj 100 MGPE In NS Inj 104 / 104 52 / 52 52 / 52 50 ML @ 208 mls/hr IV.SIG Q8H STEFF[facility]IE Rx#:[id number] Ancef Inj 1,000 MG In NS Inj 100 / 100 100 ML @ 200 mls/hr IV.SIG Q24H STEFFANIE Rx#:[id number] Oral 1000 / 1000 Output: Urine 200 / 200 175 / 175 200 / 200 Hemodialysis Amount 3000 / 3000 Other: # Voids 2 Date of Last Bowel Movement 05/15/18 05/15/18 05/16/18 # Bowel Movements 5 Narrative: GENERAL: Awake, alert. Oriented 3. SKIN: Warm and dry. HEAD: Normocephalic. EYES: No scleral icterus. No injection or drainage. NECK: Supple, trachea midline. No JVD. CARDIOVASCULAR: Regular rate and rhythm without murmurs, gallops, or rubs. RESPIRATORY: Breath sounds equal bilaterally. No accessory muscle use. GASTROINTESTINAL: Abdomen Mildly tender, nondistended. MUSCULOSKELETAL: No cyanosis, or edema. - Urinary Catheter Management Condom Cath placed during this visit: no Indwelling Urethral Catheter Cath placed during this visit: yes, but has since been removed by the nurse Reason for continuing: Decision to DC catheter Insertion date: 05/06/18 Insertion time: 16:40 Removal date: 05/14/18 Removal time: 08:00 Results - Labs CBC & Chem 7: 05/16/18 03:33 05/16/18 03:33 Laboratory Results - last 24 hr 05/15/18 05/16/18 05/16/18 15:30 00:22 03:33 WBC 12.1 H RBC 2.72 L Hgb 7.8 L Hct 23.2 L MCV 85.5 MCH 28.9 MCHC 33.7 RDW 15.5 Plt Count 302 MPV 8.2 PT INR Sodium Potassium Chloride Carbon Dioxide Anion Gap BUN Creatinine Estimated GFR POC Glucose 155 H Random Glucose Calcium Phosphorus Magnesium Total Bilirubin AST ALT Alkaline Phosphatase Total Protein Albumin Stl C.difficile Tox PCR Negative St C. diff Tox Epid 027 Negative 05/16/18 05/16/18 05/16/18 03:33 03:33 06:23 WBC RBC Hgb Hct MCV MCH MCHC RDW Plt Count MPV PT 14.1 H INR 1.4 Sodium 134 L Potassium 3.4 L Chloride 95 L Carbon Dioxide 27.1 Anion Gap 12 BUN 35 H Creatinine 4.62 H Estimated GFR 14 L POC Glucose 104 Random Glucose 98 Calcium 7.8 L Phosphorus 4.0 Magnesium 1.7 Total Bilirubin 0.5 AST 32 ALT Less than 6 L Alkaline Phosphatase 77 Total Protein 7.0 Albumin 2.0 L Stl C.difficile Tox PCR St C. diff Tox Epid 027 05/16/18 13:42 WBC RBC Hgb Hct MCV MCH MCHC RDW Plt Count MPV PT INR Sodium Potassium Chloride Carbon Dioxide Anion Gap BUN Creatinine Estimated GFR POC Glucose 107 Random Glucose Calcium Phosphorus Magnesium Total Bilirubin AST ALT Alkaline Phosphatase Total Protein Albumin Stl C.difficile Tox PCR St C. 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 -MRI brain shows Multifocal bilateral punctate infarcts, suspicious for embolic disease. -Neurology consult for embolic bilateral infarcts. Dr. Mike. Continue aspirin -Watch closely for drug withdrawal -Supplement multivitamin thiamine -Watch closely for signs of meningitis/brain abscess from septic emboli -PT OOB = 05/15. Will start low-dose Suboxone for suspected withdrawal. Continue to monitor. = 05/16. Much improved mentation. Patient feels he may be withdrawing. Unable to do low-dose Suboxone. Will try low-dose methadone. RESP: Respiratory insufficiency Pneumonia/septic emboli -DuoNeb every 6 hours as needed -Sputum culture if available -CT chest shows bilateral infiltrates =cont antibiotics. Haemophilus influenza. ID following. Appreciate assistance. CV: Lactic acidosis NSTEMI Infective endocarditis -s/p Normal saline IV fluids 4L bolus -2d echo report prelim negative, cardiology consult Dr. Martines -AURELIA shows large mitral valve vegetation (05/03) -Continue aspirin carvedilol. Avoid statins at this time due to hep C -Elevated troponin may be secondary to coronary artery septic emboli GI: Hepatitis C -O/p f/u -Speech pathology consulted for speech evaluation and swallow evaluation : Renal insufficiency -Monitor renal function closely. Dc [place] catheter. Fluid resuscitation as above Hypokalemia. = As per nephrology Hyponatremia. As per nephrology. ID: Severe sepsis MSSA infective endocarditis Haemophilus influenza pneumonia. -Oxacillin 05/01/18 -Blood urine and sputum cultures -Blood culture with GPC 4 staph aureus = Continue broad-spectrum antibiotics as per infectious disease. Appreciate assistance. HEME: -Monitor CBC, coags ENDO: -Electrolyte replacement per protocol -Sliding scale insulin if needed PROPH: -Bilateral lower extremity SCDs. Lovenox 40 mg sq daily LINES: -Utilize peripheral IVs, central line if needed Discharge Planning: - Self-pay Continues on IV antibiotics. difficult dc.
[2018-05-16] MEDS ORDERED: Methadone 10 MG Tablet PO ONE (15:20)
[2018-05-17] MEDS: Insulin NovoLOG Aspart Correctional Sugar Inj SQ SCH ×4 (00:45→18:00)
[2018-05-17] MEDS: Oral Hygiene Kit OROPHARYNG SCH ×4 (00:45→15:29)
[2018-05-17] MEDS: Loperamide 2 MG Capsule PO PRN (02:10)
[2018-05-17 05:02] LABS: INR 1.5 Ratio; Prothrombin Time 15.4 sec (9.8-11.6)
[2018-05-17 05:03] LABS: Hematocrit 21.6 % (39.0-51.0); Hemoglobin 7.2 gm/dL (13.0-17.0); Mean Corpuscular HGB Conc 33.3 % (32.0-36.0); Mean Corpuscular Hemoglobin 28.6 pg (27.0-34.0); Mean Corpuscular Volume 85.9 fL (80.0-100.0); Mean Platelet Volume 8.1 fL (7.0-11.0); Platelet Count 277 th/mm3 (150-450); Red Blood Count 2.51 mil/mm3 (4.50-5.90); Red Cell Distribution Width 15.4 % (11.6-17.2); White Blood Count 12.7 th/mm3 (4.0-11.0)
[2018-05-17 05:45] LABS: Albumin 1.8 g/dL (3.4-5.0); Anion Gap 16 meq/L (5-15); Aspartate Aminotransferase 30 U/L (15-37); Blood Urea Nitrogen 43 mg/dL (7-18); Carbon Dioxide 23.3 meq/L (21.0-32.0); Chloride 93 meq/L (98-107); Glomerular Filtration Rate 12 mL/min (>89); Glucose,Random 92 mg/dL (74-106); Magnesium 1.7 mg/dL (1.5-2.5); Potassium 3.5 meq/L (3.5-5.1); Sodium 132 meq/L (136-145)
[2018-05-17 06:02] LABS: Alkaline Phosphatase 74 U/L (45-117); Phosphorus 5.6 mg/dL (2.5-4.9); Total Protein 6.5 g/dL (6.4-8.2)
[2018-05-17] MEDS: Carboxymethylcellulose 0.5% Opth Drops 15 ML Bottle EACH EYE SCH ×4 (06:02→21:47)
[2018-05-17] MEDS: Chlorhexidine 0.12% Oral Kit 15 ML UDC OROPHARYNG SCH ×2 (07:52→21:46)
[2018-05-17] MEDS: Fosphenytoin Inj 100 MGPE in Sodium Chlor 0.9% Inj 50 ML IV.SIG SCH ×2 (07:52→17:14)
[2018-05-17] MEDS: Senna/Docusate Sodium 8.6/50 MG Tablet PO SCH ×3 (08:02→21:48)
--- NOTE | 2018-05-17 15:30 | P.PNNP ---
Subjective Interval history: Patient is feeling better seen during hemodialysis Physical Exam Vital signs: Vital Signs 05/16/18 16:00 05/16/18 16:05 05/16/18 17:00 Temperature Pulse Rate 90 86 84 Respiratory Rate Blood Pressure 163/95 H 164/99 H Pulse Oximetry 97 99 96 05/16/18 18:00 05/16/18 20:00 05/16/18 21:21 Temperature 99.9 F H Pulse Rate 88 91 H Respiratory Rate 24 26 H Blood Pressure 163/89 H 163/94 H Pulse Oximetry 94 L 100 99 05/16/18 22:00 05/17/18 00:00 05/17/18 02:00 Temperature 100.8 F H Pulse Rate 92 H 96 H 93 H Respiratory Rate 22 Blood Pressure 138/78 Pulse Oximetry 94 L 05/17/18 04:00 05/17/18 06:00 05/17/18 08:00 Temperature 98.2 F 100.8 F H Pulse Rate 92 H 91 H 92 H Respiratory Rate 28 H 29 H Blood Pressure 161/98 H 173/99 H Pulse Oximetry 99 96 05/17/18 08:04 05/17/18 10:00 05/17/18 12:00 Temperature 100.0 F H Pulse Rate 95 H 93 H Respiratory Rate 22 Blood Pressure 156/90 H Pulse Oximetry 98 89 L 05/17/18 14:00 Temperature Pulse Rate 89 Respiratory Rate Blood Pressure Pulse Oximetry Intake & Output 05/16/18 05/17/18 05/17/18 18:59 06:59 18:59 Intake Total 204 / 204 602 / 602 Output Total 200 / 200 500 / 500 Balance 4 / 4 102 / 102 Weight 89.5 kg Intake: IV 204 / 204 202 / 202 Cerebyx Inj 100 MGPE In NS Inj 104 / 104 102 / 102 50 ML @ 208 mls/hr IV.SIG Q8H STEFFANIE Rx#:[id number] Levaquin 500 mg Premix Inj 500 100 / 100 mg In 100 ml @ 100 mls/hr IV. SIG Q48H STEFFANIE Rx#:[id number] Ancef Inj 1,000 MG In NS Inj 100 / 100 100 ML @ 200 mls/hr IV.SIG Q24H STEFFANIE Rx#:[id number] Oral 400 / 400 Output: Urine 200 / 200 500 / 500 Other: # Voids 2 3 Date of Last Bowel Movement 05/16/18 05/17/18 05/17/18 # Bowel Movements 3 Narrative: GENERAL: Awake, alert. Oriented 3. SKIN: Warm and dry. HEAD: Normocephalic. EYES: No scleral icterus. No injection or drainage. NECK: Supple, trachea midline. No JVD. CARDIOVASCULAR: Regular rate and rhythm without murmurs, gallops, or rubs. RESPIRATORY: Breath sounds equal bilaterally. No accessory muscle use. GASTROINTESTINAL: Abdomen Mildly tender, nondistended. MUSCULOSKELETAL: No cyanosis, or edema. - Urinary Catheter Management Condom Cath placed during this visit: no Indwelling Urethral Catheter Cath placed during this visit: yes, but has since been removed by the nurse Reason for continuing: Decision to DC catheter Insertion date: 05/06/18 Insertion time: 16:40 Removal date: 05/14/18 Removal time: 08:00 Assessment and Plan - Assessment (1) Hypernatremia Code(s): E87.0 - Hyperosmolality and hypernatremia Status: Acute (2) Altered mental status Code(s): R41.82 - Altered mental status, unspecified Status: Acute (3) Endocarditis Code(s): I38 - Endocarditis, valve unspecified Status: Acute (4) Sepsis Code(s): A41.9 - Sepsis, unspecified organism Status: Acute Qualifiers: Sepsis type: sepsis due to unspecified organism Qualified Code(s): A41.9 - Sepsis, unspecified organism (5) Hyponatremia Code(s): E87.1 - Hypo-osmolality and hyponatremia Status: Acute - Plan Patient in acute renal failure creatinine remain elevated. Hemodialysis started , Patient has endocarditis mitral valve involvement and septic emboli Seen during hemodialysis ultrafiltration of 4 L on 4K bath tolerating it well HD as needed. hemodialysis is Monday and Monday
--- NOTE | 2018-05-17 16:05 | P.PNIM ---
Subjective Interval history: Patient says that he feels much better after getting methadone. Denies any chest pain or shortness of breath. Physical Exam Vital signs: Vital Signs 05/16/18 16:05 05/16/18 17:00 05/16/18 18:00 Temperature Pulse Rate 86 84 88 Respiratory Rate 24 Blood Pressure 163/95 H 164/99 H 163/89 H Pulse Oximetry 99 96 94 L 05/16/18 20:00 05/16/18 21:21 05/16/18 22:00 Temperature 99.9 F H Pulse Rate 91 H 92 H Respiratory Rate 26 H Blood Pressure 163/94 H Pulse Oximetry 100 99 05/17/18 00:00 05/17/18 02:00 05/17/18 04:00 Temperature 100.8 F H 98.2 F Pulse Rate 96 H 93 H 92 H Respiratory Rate 22 28 H Blood Pressure 138/78 161/98 H Pulse Oximetry 94 L 99 05/17/18 06:00 05/17/18 08:00 05/17/18 08:04 Temperature 100.8 F H Pulse Rate 91 H 92 H Respiratory Rate 29 H Blood Pressure 173/99 H Pulse Oximetry 96 98 05/17/18 10:00 05/17/18 12:00 05/17/18 14:00 Temperature 100.0 F H Pulse Rate 95 H 93 H 89 Respiratory Rate 22 Blood Pressure 156/90 H Pulse Oximetry 89 L Intake & Output 05/16/18 05/17/18 05/17/18 18:59 06:59 18:59 Intake Total 204 / 204 602 / 602 Output Total 200 / 200 500 / 500 Balance 4 / 4 102 / 102 Weight 89.5 kg Intake: IV 204 / 204 202 / 202 Cerebyx Inj 100 MGPE In NS Inj 104 / 104 102 / 102 50 ML @ 208 mls/hr IV.SIG Q8H STEFFANIE Rx#:[id number] Levaquin 500 mg Premix Inj 500 100 / 100 mg In 100 ml @ 100 mls/hr IV. SIG Q48H STEFFANIE Rx#:[id number] Ancef Inj 1,000 MG In NS Inj 100 / 100 100 ML @ 200 mls/hr IV.SIG Q24H STEFFANIE Rx#:[id number] Oral 400 / 400 Output: Urine 200 / 200 500 / 500 Other: # Voids 2 3 Date of Last Bowel Movement 05/16/18 05/17/18 05/17/18 # Bowel Movements 3 Narrative: GENERAL: Awake, alert. Oriented 3. Patient appears more talkative today. Smiling a little SKIN: Warm and dry. HEAD: Normocephalic. EYES: No scleral icterus. No injection or drainage. NECK: Supple, trachea midline. No JVD. CARDIOVASCULAR: Regular rate and rhythm without murmurs, gallops, or rubs. RESPIRATORY: Breath sounds equal bilaterally. No accessory muscle use. GASTROINTESTINAL: Abdomen Mildly tender, nondistended. MUSCULOSKELETAL: No cyanosis, or edema. - Urinary Catheter Management Condom Cath placed during this visit: no Indwelling Urethral Catheter Cath placed during this visit: yes, but has since been removed by the nurse Reason for continuing: Decision to DC catheter Insertion date: 05/06/18 Insertion time: 16:40 Removal date: 05/14/18 Removal time: 08:00 Results - Labs CBC & Chem 7: 05/17/18 04:02 05/17/18 04:02 Laboratory Results - last 24 hr 05/16/18 05/17/18 05/17/18 23:21 04:02 04:02 WBC 12.7 H RBC 2.51 L Hgb 7.2 L Hct 21.6 L MCV 85.9 MCH 28.6 MCHC 33.3 RDW 15.4 Plt Count 277 MPV 8.1 PT 15.4 H INR 1.5 Sodium Potassium Chloride Carbon Dioxide Anion Gap BUN Creatinine Estimated GFR POC Glucose 97 Random Glucose Calcium Phosphorus Magnesium Total Bilirubin AST ALT Alkaline Phosphatase Total Protein Albumin 05/17/18 05/17/18 05/17/18 04:02 05:57 11:10 WBC RBC Hgb Hct MCV MCH MCHC RDW Plt Count MPV PT INR Sodium 132 L Potassium 3.5 Chloride 93 L Carbon Dioxide 23.3 Anion Gap 16 H BUN 43 H Creatinine 5.22 H Estimated GFR 12 L POC Glucose 103 184 H Random Glucose 92 Calcium 8.0 L Phosphorus 5.6 H D Magnesium 1.7 Total Bilirubin 0.4 AST 30 ALT Less than 6 L Alkaline Phosphatase 74 Total Protein 6.5 Albumin 1.8 L 05/17/18 12:34 WBC RBC Hgb Hct MCV MCH MCHC RDW Plt Count MPV PT INR Sodium Potassium Chloride Carbon Dioxide Anion Gap BUN Creatinine Estimated GFR POC Glucose 113 H Random Glucose Calcium Phosphorus Magnesium Total Bilirubin AST ALT Alkaline Phosphatase Total Protein Albumin - Procedures AURELIA Assessment and Plan - Plan Acute metabolic encephalopathy Multifocal bilateral punctate infarcts, probable septic emboli Polysubstance abuse with withdrawal -Off Precedex. -MRI brain shows Multifocal bilateral punctate infarcts, suspicious for embolic disease. -Neurology consult for embolic bilateral infarcts. Dr. Mike. Continue aspirin -Watch closely for drug withdrawal -Supplement multivitamin thiamine -Watch closely for signs of meningitis/brain abscess from septic emboli -PT OOB = 05/15. Will start low-dose Suboxone for suspected withdrawal. Continue to monitor. = 05/16. Much improved mentation. Patient feels he may be withdrawing. Unable to do low-dose Suboxone. Will try low-dose methadone. = 05/17. Improved on methadone. Will check EKG. Give another dose of methadone today, 5 mg. RESP: Respiratory insufficiency Pneumonia/septic emboli -DuoNeb every 6 hours as needed -Sputum culture if available -CT chest shows bilateral infiltrates =cont antibiotics. Haemophilus influenza. ID following. Appreciate assistance. CV: Lactic acidosis NSTEMI Infective endocarditis -s/p Normal saline IV fluids 4L bolus -2d echo report prelim negative, cardiology consult Dr. Martines -AURELIA shows large mitral valve vegetation (05/03) -Continue aspirin carvedilol. Avoid statins at this time due to hep C -Elevated troponin may be secondary to coronary artery septic emboli GI: Hepatitis C -O/p f/u -Continue regular diet. N : Renal insufficiency -Monitor renal function closely. Dc [place] catheter. Fluid resuscitation as above Hypokalemia. = As per nephrology Hyponatremia. As per nephrology. ID: Severe sepsis MSSA infective endocarditis Haemophilus influenza pneumonia. -Oxacillin 05/01/18 -Blood urine and sputum cultures -Blood culture with GPC 4 staph aureus = Continue broad-spectrum antibiotics as per infectious disease. Appreciate assistance. HEME: -Monitor CBC, coags ENDO: -Electrolyte replacement per protocol -Sliding scale insulin if needed PROPH: -Bilateral lower extremity SCDs. Lovenox 40 mg sq daily LINES: -Utilize peripheral IVs, central line if needed Discharge Planning: - Self-pay Continues on IV antibiotics. difficult dc.
[2018-05-17] MEDS ORDERED: Methadone 10 MG Tablet PO ONE (17:00)
[2018-05-17] MEDS: Heparin 10,000 UNITS/10 ML Vial (for IV use) OTHER PRN (17:12)
--- NOTE | 2018-05-17 17:45 | P.PNID ---
Subjective Remarks: afebrile doing well co lower back pain remains on HD + voiding Antibiotics: ancef Past Medical History: IVDU Allergies/Adverse Reactions: Allergies No Known Allergies Allergy (Unknown, Uncoded 07/13/17 00:28) Objective Vital Signs 05/16/18 18:00 05/16/18 20:00 05/16/18 21:21 Temperature 99.9 F H Pulse Rate 88 91 H Respiratory Rate 24 26 H Blood Pressure 163/89 H 163/94 H Pulse Oximetry 94 L 100 99 05/16/18 22:00 05/17/18 00:00 05/17/18 02:00 Temperature 100.8 F H Pulse Rate 92 H 96 H 93 H Respiratory Rate 22 Blood Pressure 138/78 Pulse Oximetry 94 L 05/17/18 04:00 05/17/18 06:00 05/17/18 08:00 Temperature 98.2 F 100.8 F H Pulse Rate 92 H 91 H 92 H Respiratory Rate 28 H 29 H Blood Pressure 161/98 H 173/99 H Pulse Oximetry 99 96 05/17/18 08:04 05/17/18 10:00 05/17/18 12:00 Temperature 100.0 F H Pulse Rate 95 H 93 H Respiratory Rate 22 Blood Pressure 156/90 H Pulse Oximetry 98 89 L 05/17/18 14:00 Temperature Pulse Rate 89 Respiratory Rate Blood Pressure Pulse Oximetry Intake & Output 05/16/18 05/17/18 05/17/18 18:59 06:59 18:59 Intake Total 204 / 204 602 / 602 Output Total 200 / 200 500 / 500 4100 / 4100 Balance 4 / 4 102 / 102 -4100 / -4100 Weight 89.5 kg Intake: IV 204 / 204 202 / 202 Cerebyx Inj 100 MGPE In NS Inj 104 / 104 102 / 102 50 ML @ 208 mls/hr IV.SIG Q8H [facility] Rx#:[id number] Levaquin 500 mg Premix Inj 500 100 / 100 mg In 100 ml @ 100 mls/hr IV. SIG Q48H STEFF[facility]IE Rx#:[id number] Ancef Inj 1,000 MG In NS Inj 100 / 100 100 ML @ 200 mls/hr IV.SIG Q24H STEFFANIE Rx#:[id number] Oral 400 / 400 Output: Urine 200 / 200 500 / 500 100 / 100 Hemodialysis Amount 4000 / 4000 Other: # Voids 2 3 1 Date of Last Bowel Movement 05/16/18 05/17/18 05/17/18 # Bowel Movements 3 Lab - Hematology Results 05/16/18 05/17/18 03:33 04:02 WBC 12.1 H 12.7 H RBC 2.72 L 2.51 L Hgb 7.8 L 7.2 L Hct 23.2 L 21.6 L MCV 85.5 85.9 MCH 28.9 28.6 MCHC 33.7 33.3 RDW 15.5 15.4 Plt Count 302 277 MPV 8.2 8.1 Lab - Chemistry Results 05/16/18 05/16/18 05/16/18 00:22 03:33 06:23 Sodium 134 L Potassium 3.4 L Chloride 95 L Carbon Dioxide 27.1 Anion Gap 12 BUN 35 H Creatinine 4.62 H Estimated GFR 14 L POC Glucose 155 H 104 Random Glucose 98 Calcium 7.8 L Phosphorus 4.0 Magnesium 1.7 Total Bilirubin 0.5 AST 32 ALT Less than 6 L Alkaline Phosphatase 77 Total Protein 7.0 Albumin 2.0 L 05/16/18 05/16/18 05/17/18 13:42 23:21 04:02 Sodium 132 L Potassium 3.5 Chloride 93 L Carbon Dioxide 23.3 Anion Gap 16 H BUN 43 H Creatinine 5.22 H Estimated GFR 12 L POC Glucose 107 97 Random Glucose 92 Calcium 8.0 L Phosphorus 5.6 H D Magnesium 1.7 Total Bilirubin 0.4 AST 30 ALT Less than 6 L Alkaline Phosphatase 74 Total Protein 6.5 Albumin 1.8 L 05/17/18 05/17/18 05/17/18 05:57 11:10 12:34 Sodium Potassium Chloride Carbon Dioxide Anion Gap BUN Creatinine Estimated GFR POC Glucose 103 184 H 113 H Random Glucose Calcium Phosphorus Magnesium Total Bilirubin AST ALT Alkaline Phosphatase Total Protein Albumin 05/17/18 17:07 Sodium Potassium Chloride Carbon Dioxide Anion Gap BUN Creatinine Estimated GFR POC Glucose 112 H Random Glucose Calcium Phosphorus Magnesium Total Bilirubin AST ALT Alkaline Phosphatase Total Protein Albumin Imaging: ITS Impressions Chest CT 04/30/18 00:00 CONCLUSION: 1. Parenchymal process bilaterally most likely inflammatory and pneumonia. Abdomen/Pelvis CT 04/30/18 08:48 CONCLUSION: 1. 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 2. Haziness in the anterior margins of the perinephric space at the junction of the spleen possibly inflammatory process of uncertain etiology. Head MRI 05/01/18 00:00 CONCLUSION: 1. Multifocal bilateral punctate infarcts, suspicious for embolic disease. 2. No midline shift or mass effect. Lumbar Spine MRI 05/06/18 00:00 CONCLUSION: 1. Large posterior subcutaneous fluid collection with enhancement. This could represent a seroma or abscess. 2. No evidence of osteomyelitis or discitis. Thoracic Spine MRI 05/06/18 00:00 CONCLUSION: 1. Negative thoracic MRI with no evidence of osteomyelitis or discitis. 2. Please see lumbar spine MRI for further details on findings in this region. Head CT 05/06/18 15:42 CONCLUSION: 1. No acute hemorrhage or mass effect. 2. The small bilateral known punctate infarcts seen on the MRI are not distinctly visualized. 3. Mucosal thickening in the ethmoidal air cells, sphenoid sinus and both maxillary sinuses. Abdomen/Bladder Ultrasound 05/08/18 00:00 CONCLUSION: 1. Trace perinephric fluid surrounding the right kidney. 2. Small right pleural effusion. 3. Otherwise normal sonographic appearance of the kidneys without evidence of hydronephrosis. Chest X-Ray 05/12/18 05:00 CONCLUSION: 1. Stable tubes and lines, as above. 2. Significantly improved diffuse patchy bilateral interstitial and alveolar opacities. Physical Exam: GENERAL: NAD SKIN: Warm and dry. evolving extensive petechial and [place] lesions HEAD: Atraumatic. Normocephalic. EYES: Pupils equal and round. No scleral icterus. No injection or drainage. evolvinhg conjunctival hmrgs ENT: No nasal bleeding or discharge. Mucous membranes pink and moist. NECK: Trachea midline. No JVD. CARDIOVASCULAR: Regular rate and rhythm. RESPIRATORY: No accessory muscle use. Clear to auscultation. Breath sounds equal bilaterally. GASTROINTESTINAL: Abdomen soft, non-tender, nondistended. Hepatic and splenic margins not palpable. MUSCULOSKELETAL: Extremities without clubbing, cyanosis, or edema. No obvious deformities. NEUROLOGICAL: awake, oriented x 3, normla speech follows commands all 4 extremeities PSYCHIATRIC: unable to assess Assessment and Plan - Plan mitral valve endocariditis with a 3 cm vegetations Multiple embolic strokes brain septic emboli ARF, anuric, on HD urine eosinophils+ acute VDRF: resolved ? Soft tissue abscess L area - not present on US PNA, H flu - cont cefazoline adjusted renally anticipate 6 weeks from 1st negative blood clx unless metastatic infections will require longer tx duration (Stop date Jun 06) - dc levofloxacin for H flu tomorrow repeat MRI L spine if persistent back pain will see as needed hesham RN
[2018-05-18] MEDS: Fosphenytoin Inj 100 MGPE in Sodium Chlor 0.9% Inj 50 ML IV.SIG SCH ×3 (00:22→15:59)
[2018-05-18] MEDS: Oral Hygiene Kit OROPHARYNG SCH ×4 (00:23→15:03)
[2018-05-18] MEDS: Insulin NovoLOG Aspart Correctional Sugar Inj SQ SCH ×4 (00:34→17:25)
[2018-05-18] MEDS: Carboxymethylcellulose 0.5% Opth Drops 15 ML Bottle EACH EYE SCH ×4 (05:02→22:07)
[2018-05-18] MEDS: Chlorhexidine 0.12% Oral Kit 15 ML UDC OROPHARYNG SCH ×2 (07:13→22:06)
[2018-05-18 07:27] LABS: Hematocrit 24.2 % (39.0-51.0); Mean Corpuscular HGB Conc 33.1 % (32.0-36.0); Mean Corpuscular Hemoglobin 28.5 pg (27.0-34.0); Mean Corpuscular Volume 86.2 fL (80.0-100.0); Mean Platelet Volume 7.9 fL (7.0-11.0); Platelet Count 326 th/mm3 (150-450); Red Blood Count 2.81 mil/mm3 (4.50-5.90); Red Cell Distribution Width 15.9 % (11.6-17.2); White Blood Count 12.9 th/mm3 (4.0-11.0)
[2018-05-18 07:36] LABS: INR 1.8 Ratio; Prothrombin Time 18.6 sec (9.8-11.6)
[2018-05-18 07:57] LABS: Alanine Aminotransferase 11 U/L (12-78); Albumin 1.7 g/dL (3.4-5.0); Alkaline Phosphatase 92 U/L (45-117); Anion Gap 9 meq/L (5-15); Aspartate Aminotransferase 56 U/L (15-37); Blood Urea Nitrogen 27 mg/dL (7-18); Carbon Dioxide 27.7 meq/L (21.0-32.0); Chloride 97 meq/L (98-107); Glomerular Filtration Rate 17 mL/min (>89); Glucose,Random 125 mg/dL (74-106); Magnesium 1.9 mg/dL (1.5-2.5); Potassium 3.8 meq/L (3.5-5.1); Sodium 134 meq/L (136-145); Total Protein 6.9 g/dL (6.4-8.2)
[2018-05-18] MEDS: Senna/Docusate Sodium 8.6/50 MG Tablet PO SCH ×2 (08:14→22:06)
--- NOTE | 2018-05-18 10:03 | P.PNNP ---
Subjective Interval history: Doing okay Physical Exam Vital signs: Vital Signs 05/17/18 12:00 05/17/18 14:00 05/17/18 18:00 Temperature 100.0 F H Pulse Rate 93 H 89 101 H Respiratory Rate 22 Blood Pressure 156/90 H Pulse Oximetry 89 L 05/17/18 20:00 05/17/18 20:02 05/17/18 21:54 Temperature 100.8 F H Pulse Rate 97 H 102 H Respiratory Rate 32 H 32 H Blood Pressure 170/103 H Pulse Oximetry 99 100 98 05/17/18 22:04 05/17/18 23:56 05/18/18 00:00 Temperature 100.8 F H 100.2 F H Pulse Rate 102 H 103 H 97 H Respiratory Rate 32 H 28 H Blood Pressure 170/103 H 126/73 Pulse Oximetry 98 95 05/18/18 04:00 05/18/18 08:00 Temperature 99.7 F H 98.2 F Pulse Rate 101 H 92 H Respiratory Rate 28 H 16 Blood Pressure 142/87 H 157/100 H Pulse Oximetry 96 98 Intake & Output 05/17/18 05/18/18 05/18/18 18:59 06:59 18:59 Intake Total 172 / 172 392 / 392 Output Total 4450 / 4450 400 / 400 Balance -4278 / -4278 -8 / -8 Weight 87.2 kg Intake: IV 152 / 152 Cerebyx Inj 100 MGPE In NS Inj 52 52 / 52 50 ML @ 208 mls/hr IV.SIG Q8H STEFF[facility]IE Rx#:[id number] Ancef Inj 1,000 MG In NS Inj 100 / 100 100 ML @ 200 mls/hr IV.SIG Q24H STEFFANIE Rx#:[id number] Oral 120 / 120 240 / 240 Output: Urine 450 / 450 400 / 400 Hemodialysis Amount 4000 / 4000 Other: # Voids 2 Date of Last Bowel Movement 05/17/18 05/17/18 # Bowel Movements 0 Narrative: GENERAL: Awake, alert. Oriented 3. Patient appears more talkative today. Smiling a little SKIN: Warm and dry. HEAD: Normocephalic. EYES: No scleral icterus. No injection or drainage. NECK: Supple, trachea midline. No JVD. CARDIOVASCULAR: Regular rate and rhythm without murmurs, gallops, or rubs. RESPIRATORY: Breath sounds equal bilaterally. No accessory muscle use. GASTROINTESTINAL: Abdomen Mildly tender, nondistended. MUSCULOSKELETAL: No cyanosis, or edema. - Urinary Catheter Management Condom Cath placed during this visit: no Indwelling Urethral Catheter Cath placed during this visit: yes, but has since been removed by the nurse Reason for continuing: Decision to DC catheter Insertion date: 05/06/18 Insertion time: 16:40 Removal date: 05/14/18 Removal time: 08:00 Assessment and Plan - Assessment (1) Hypernatremia Code(s): E87.0 - Hyperosmolality and hypernatremia Status: Acute (2) Altered mental status Code(s): R41.82 - Altered mental status, unspecified Status: Acute (3) Endocarditis Code(s): I38 - Endocarditis, valve unspecified Status: Acute (4) Sepsis Code(s): A41.9 - Sepsis, unspecified organism Status: Acute Qualifiers: Sepsis type: sepsis due to unspecified organism Qualified Code(s): A41.9 - Sepsis, unspecified organism (5) Hyponatremia Code(s): E87.1 - Hypo-osmolality and hyponatremia Status: Acute - Plan Patient in acute renal failure creatinine remain elevated. Hemodialysis started , Patient has endocarditis mitral valve involvement and septic emboli HD as needed. hemodialysis is Monday and Monday
--- NOTE | 2018-05-18 12:51 | P.PN ---
Subjective Interval history: seen with staff nurse aylin martínez BM- states stools slowed down a lot- so far once today still making some urine Physical Exam Vital signs: Vital Signs 05/17/18 14:00 05/17/18 18:00 05/17/18 20:00 Temperature Pulse Rate 89 101 H 97 H Respiratory Rate 32 H Blood Pressure Pulse Oximetry 99 05/17/18 20:02 05/17/18 21:54 05/17/18 22:04 Temperature 100.8 F H 100.8 F H Pulse Rate 102 H 102 H Respiratory Rate 32 H 32 H Blood Pressure 170/103 H 170/103 H Pulse Oximetry 100 98 98 05/17/18 23:56 05/18/18 00:00 05/18/18 04:00 Temperature 100.2 F H 99.7 F H Pulse Rate 103 H 97 H 101 H Respiratory Rate 28 H 28 H Blood Pressure 126/73 142/87 H Pulse Oximetry 95 96 05/18/18 08:00 Temperature 98.2 F Pulse Rate 92 H Respiratory Rate 16 Blood Pressure 157/100 H Pulse Oximetry 98 Intake & Output 05/17/18 05/18/18 05/18/18 18:59 06:59 18:59 Intake Total 172 / 172 392 / 392 52 / 52 Output Total 4450 / 4450 400 / 400 Balance -4278 / -4278 -8 / -8 Weight 87.2 kg Intake: IV 152 / 152 52 / 52 Cerebyx Inj 100 MGPE In NS Inj 52 / 52 52 / 52 50 ML @ 208 mls/hr IV.SIG Q8H STEFFANIE Rx#:[id number] Ancef Inj 1,000 MG In NS Inj 100 / 100 100 ML @ 200 mls/hr IV.SIG Q24H STEFFANIE Rx#:[id number] Oral 120 / 120 240 / 240 Output: Urine 450 / 450 400 / 400 Hemodialysis Amount 4000 / 4000 Other: # Voids 2 Date of Last Bowel Movement 05/17/18 05/17/18 # Bowel Movements 0 Narrative: GENERAL: Awake, alert. Oriented 3. interactive, speehc clear SKIN: Warm and dry. HEAD: Normocephalic. EYES: No scleral icterus. No injection or drainage. NECK: Supple, trachea midline. No JVD. vasc ath in place right neck CARDIOVASCULAR: Regular rate and rhythm without murmurs, gallops, or rubs. RESPIRATORY: Breath sounds equal bilaterally. No accessory muscle use. GASTROINTESTINAL: Abdomen soft, nontender MUSCULOSKELETAL: No cyanosis, or edema. neuro exam- non focal - Urinary Catheter Management Condom Cath placed during this visit: no Indwelling Urethral Catheter Cath placed during this visit: yes, but has since been removed by the nurse Reason for continuing: Decision to DC catheter Insertion date: 05/06/18 Insertion time: 16:40 Removal date: 05/14/18 Removal time: 08:00 Results - Labs CBC & Chem 7: 05/18/18 06:54 05/18/18 06:54 Laboratory Results - last 24 hr 05/17/18 05/18/18 05/18/18 17:07 00:27 06:11 WBC RBC Hgb Hct MCV MCH MCHC RDW Plt Count MPV PT INR Sodium Potassium Chloride Carbon Dioxide Anion Gap BUN Creatinine Estimated GFR POC Glucose 112 H 117 H 105 Random Glucose Calcium Phosphorus Magnesium Total Bilirubin AST ALT Alkaline Phosphatase Total Protein Albumin 05/18/18 05/18/18 05/18/18 06:54 06:54 07:00 WBC 12.9 H RBC 2.81 L Hgb 8.0 L Hct 24.2 L MCV 86.2 MCH 28.5 MCHC 33.1 RDW 15.9 Plt Count 326 MPV 7.9 PT 18.6 H INR 1.8 Sodium 134 L Potassium 3.8 Chloride 97 L Carbon Dioxide 27.7 Anion Gap 9 BUN 27 H Creatinine 4.07 H Estimated GFR 17 L POC Glucose Random Glucose 125 H Calcium 8.0 L Phosphorus 5.0 H Magnesium 1.9 Total Bilirubin 0.4 AST 56 H ALT 11 L Alkaline Phosphatase 92 Total Protein 6.9 Albumin 1.7 L - Procedures AURELIA Assessment and Plan - Plan Acute metabolic encephalopathy- MS improved Multifocal bilateral punctate infarcts, probable septic emboli Polysubstance abuse with withdrawal -Off Precedex. -MRI brain shows Multifocal bilateral punctate infarcts, suspicious for embolic disease. -Neurology consult for embolic bilateral infarcts. Dr. Mike. Continue aspirin -Watch closely for drug withdrawal -Supplement multivitamin thiamine -Watch closely for signs of meningitis/brain abscess from septic emboli -PT OOB = 05/15. Will start low-dose Suboxone for suspected withdrawal. Continue to monitor. = 05/16. Much improved mentation. Patient feels he may be withdrawing. Unable to do low-dose Suboxone. Will try low-dose methadone. = 05/17. Improved on methadone. Will check EKG. Give another dose of methadone today, 5 mg.- start on 5 mg daily RESP: Respiratory insufficiency Pneumonia/septic emboli -DuoNeb every 6 hours as needed -Sputum culture if available -CT chest shows bilateral infiltrates =cont antibiotics. Haemophilus influenza. ID following. Appreciate assistance. CV: Lactic acidosis NSTEMI Infective endocarditis -s/p Normal saline IV fluids 4L bolus -2d echo report prelim negative, cardiology consult Dr. Martines -AURELIA shows large mitral valve vegetation (05/03) -Continue aspirin carvedilol. Avoid statins at this time due to hep C -Elevated troponin may be secondary to coronary artery septic emboli - monitor and adjust regimen - on Coreg bid- monitor and adjust GI: Hepatitis C -O/p f/u -Continue regular diet. N : Renal insufficiency -Monitor renal function closely. Dc [place] catheter. Fluid resuscitation as above Hypokalemia. = As per nephrology Hyponatremia. As per nephrology. ID: Severe sepsis MSSA infective endocarditis Haemophilus influenza pneumonia. -Oxacillin 05/01/18 -Blood urine and sputum cultures -Blood culture with GPC 4 staph aureus = Continue broad-spectrum antibiotics as per infectious disease. Appreciate assistance. Pain- history of IVDU - start on methadone 2.5 mg daily- d/w him - he states he got Methdaone 05/17 and was told he would be started HEME: -Monitor CBC, coags ENDO: -Electrolyte replacement per protocol -Sliding scale insulin if needed PROPH: -Bilateral lower extremity SCDs. Lovenox 40 mg sq daily LINES: -Utilize peripheral IVs, central line if needed Discharge Planning: - Self-pay Continues on IV antibiotics. difficult dc.
[2018-05-18] MEDS: Methadone 10 MG Tablet PO SCH (14:55)
[2018-05-18] MEDS: Levofloxacin 500 mg Premix Inj 500 MG/100 ML PIGGYBACK IV.SIG SCH (14:55)
[2018-05-19] MEDS: Fosphenytoin Inj 100 MGPE in Sodium Chlor 0.9% Inj 50 ML IV.SIG SCH ×4 (00:03→23:57)
[2018-05-19] MEDS: Insulin NovoLOG Aspart Correctional Sugar Inj SQ SCH ×4 (05:29→17:36)
[2018-05-19] MEDS: Carboxymethylcellulose 0.5% Opth Drops 15 ML Bottle EACH EYE SCH ×4 (05:31→22:36)
[2018-05-19] MEDS: Oral Hygiene Kit OROPHARYNG SCH ×3 (05:31→17:37)
[2018-05-19] MEDS: Methadone 10 MG Tablet PO SCH (08:59)
[2018-05-19] MEDS ORDERED: Methadone 10 MG Tablet PO SCH (09:00)
--- NOTE | 2018-05-19 09:53 | P.PN ---
Subjective Interval history: seen after HD- 145 pm no complains VS reviewed - HR 100-110s - elevated BPs currently on coreg 3/125 mg po bid Physical Exam Vital signs: Vital Signs 05/18/18 12:00 05/18/18 16:00 05/18/18 20:00 Temperature 98.3 F 99.4 F 100.1 F H Pulse Rate 93 H 112 H 119 H Respiratory Rate 18 18 20 Blood Pressure 165/97 H 169/103 H 170/99 H Pulse Oximetry 97 97 90 L 05/19/18 00:00 05/19/18 04:00 Temperature 100.2 F H 98.2 F Pulse Rate 103 H 103 H Respiratory Rate 20 20 Blood Pressure 152/90 H 167/97 H Pulse Oximetry 95 97 Intake & Output 05/18/18 05/19/18 05/19/18 18:59 06:59 18:59 Intake Total 564 / 564 1072 / 1072 Output Total 325 / 325 4400 / 4400 Balance 239 / 239 -3328 / -3328 Weight 88 kg Intake: IV 204 / 204 152 / 152 Cerebyx Inj 100 MGPE In NS Inj 104 / 104 52 / 52 50 ML @ 208 mls/hr IV.SIG Q8H STEFFANIE Rx#:[id number] Levaquin 500 mg Premix Inj 500 100 / 100 mg In 100 ml @ 100 mls/hr IV. SIG Q48H STEFFANIE Rx#:[id number] Ancef Inj 1,000 MG In NS Inj 100 / 100 100 ML @ 200 mls/hr IV.SIG Q24H STEFFANIE Rx#:[id number] Oral 360 / 360 920 / 920 Output: Urine 325 / 325 400 / 400 Urine/Stool Mix 0 / 0 Hemodialysis Amount 4000 / 4000 Gastric Drainage 0 / 0 Right Nare Nasogastric Tube 0 / 0 Other: Date of Last Bowel Movement 05/18/18 # Bowel Movements 1 3 # Incontinent Bowel Movements 3 Narrative: GENERAL: Awake, alert. Oriented 3. interactive, speehc clear SKIN: Warm and dry. HEAD: Normocephalic. EYES: No scleral icterus. No injection or drainage. NECK: Supple, trachea midline. No JVD. vasc ath in place right neck CARDIOVASCULAR:Tachycardic and rhythm without murmurs, gallops, or rubs. RESPIRATORY: Breath sounds equal bilaterally. No accessory muscle use. GASTROINTESTINAL: Abdomen soft, nontender MUSCULOSKELETAL: No cyanosis, or edema. neuro exam- non focal - Urinary Catheter Management Condom Cath placed during this visit: no Indwelling Urethral Catheter Cath placed during this visit: yes, but has since been removed by the nurse Reason for continuing: Decision to DC catheter Insertion date: 05/06/18 Insertion time: 16:40 Removal date: 05/14/18 Removal time: 08:00 Results - Labs CBC & Chem 7: 05/18/18 06:54 05/18/18 06:54 Laboratory Results - last 24 hr 05/18/18 05/19/18 05/19/18 16:23 05:51 07:45 POC Glucose 110 134 H 121 H - Procedures AURELAI Assessment and Plan - Plan Acute metabolic encephalopathy- MS improved Multifocal bilateral punctate infarcts, probable septic emboli Polysubstance abuse with withdrawal -Off Precedex. -MRI brain shows Multifocal bilateral punctate infarcts, suspicious for embolic disease. -Neurology consult for embolic bilateral infarcts. Dr. Mike. Continue aspirin -Watch closely for drug withdrawal -Supplement multivitamin thiamine -Watch closely for signs of meningitis/brain abscess from septic emboli -PT OOB = 05/15. Will start low-dose Suboxone for suspected withdrawal. Continue to monitor. = 05/16. Much improved mentation. Patient feels he may be withdrawing. Unable to do low-dose Suboxone. Will try low-dose methadone. = 05/17. Improved on methadone. Will check EKG. Give another dose of methadone today, 5 mg.- start on 5 mg daily RESP: Respiratory insufficiency Pneumonia/septic emboli -DuoNeb every 6 hours as needed -Sputum culture if available -CT chest shows bilateral infiltrates =cont antibiotics. Haemophilus influenza. ID following. Appreciate assistance. CV: Lactic acidosis NSTEMI Infective endocarditis Persistent tacjhycardia HYpertension -s/p Normal saline IV fluids 4L bolus -2d echo report prelim negative, -AURELIA shows large mitral valve vegetation (05/03) -Continue aspirin - DC Coreg0- change to Lopressor 25 mg po q 8 for better rate and BP control= today 05/19 - Avoid statins at this time due to hep C -Elevated troponin may be secondary to coronary artery septic emboli GI: Hepatitis C -O/p f/u -Continue regular diet. N : Renal insufficiency -Monitor renal function closely. Dc [place] catheter. Fluid resuscitation as above Hypokalemia. = As per nephrology Hyponatremia. As per nephrology. ID: Severe sepsis MSSA infective endocarditis Haemophilus influenza pneumonia. -Oxacillin 05/01/18 -Blood urine and sputum cultures -Blood culture with GPC 4 staph aureus = Continue broad-spectrum antibiotics as per infectious disease. Appreciate assistance. Pain- history of IVDU - start on methadone 2.5 mg daily- d/w him - he states he got Methdaone 05/17 and was told he would be started HEME: -Monitor CBC, coags ENDO: -Electrolyte replacement per protocol -Sliding scale insulin if needed PROPH: -Bilateral lower extremity SCDs. Lovenox 40 mg sq daily LINES: -Utilize peripheral IVs, central line if needed Discharge Planning: - Self-pay Continues on IV antibiotics. difficult dc. d/w family- father- asking for CM
--- NOTE | 2018-05-19 09:53 | P.PNNP ---
Subjective Interval history: patient was seen during dialysis. On 3K, UF goal is 3 liters, BFR is 350 ml/ min. Has right IJ Vascath. Physical Exam Vital signs: Vital Signs 05/18/18 12:00 05/18/18 16:00 05/18/18 20:00 Temperature 98.3 F 99.4 F 100.1 F H Pulse Rate 93 H 112 H 119 H Respiratory Rate 18 18 20 Blood Pressure 165/97 H 169/103 H 170/99 H Pulse Oximetry 97 97 90 L 05/19/18 00:00 05/19/18 04:00 Temperature 100.2 F H 98.2 F Pulse Rate 103 H 103 H Respiratory Rate 20 20 Blood Pressure 152/90 H 167/97 H Pulse Oximetry 95 97 Intake & Output 05/18/18 05/19/18 05/19/18 18:59 06:59 18:59 Intake Total 564 / 564 1072 / 1072 Output Total 325 / 325 4400 / 4400 Balance 239 / 239 -3328 / -3328 Weight 88 kg Intake: IV 204 / 204 152 / 152 Cerebyx Inj 100 MGPE In NS Inj 104 / 104 52 / 52 50 ML @ 208 mls/hr IV.SIG Q8H STEFFANIE Rx#:[id number] Levaquin 500 mg Premix Inj 500 100 / 100 mg In 100 ml @ 100 mls/hr IV. SIG Q48H STEFFANIE Rx#:[id number] Ancef Inj 1,000 MG In NS Inj 100 / 100 100 ML @ 200 mls/hr IV.SIG Q24H STEFFANIE Rx#:[id number] Oral 360 / 360 920 / 920 Output: Urine 325 / 325 400 / 400 Urine/Stool Mix 0 / 0 Hemodialysis Amount 4000 / 4000 Gastric Drainage 0 / 0 Right Nare Nasogastric Tube 0 / 0 Other: Date of Last Bowel Movement 05/18/18 # Bowel Movements 1 3 # Incontinent Bowel Movements 3 Narrative: GENERAL: Awake, alert. Oriented 3. interactive, speehc clear SKIN: Warm and dry. HEAD: Normocephalic. EYES: No scleral icterus. No injection or drainage. NECK: Supple, trachea midline. No JVD. vasc ath in place right neck CARDIOVASCULAR: Regular rate and rhythm without murmurs, gallops, or rubs. RESPIRATORY: Breath sounds equal bilaterally. No accessory muscle use. GASTROINTESTINAL: Abdomen soft, nontender MUSCULOSKELETAL: No cyanosis, or edema. neuro exam- non focal - Urinary Catheter Management Condom Cath placed during this visit: no Indwelling Urethral Catheter Cath placed during this visit: yes, but has since been removed by the nurse Reason for continuing: Decision to DC catheter Insertion date: 05/06/18 Insertion time: 16:40 Removal date: 05/14/18 Removal time: 08:00 Assessment and Plan - Assessment (1) Altered mental status Code(s): R41.82 - Altered mental status, unspecified Status: Acute Plan: Improved, monitor. (2) Endocarditis Code(s): I38 - Endocarditis, valve unspecified Status: Acute (3) Sepsis Code(s): A41.9 - Sepsis, unspecified organism Status: Acute Qualifiers: Sepsis type: sepsis due to unspecified organism Qualified Code(s): A41.9 - Sepsis, unspecified organism (4) Hyponatremia Code(s): E87.1 - Hypo-osmolality and hyponatremia Status: Acute - Plan Patient in acute renal failure creatinine remain elevated. Hemodialysis started , Dialysis today as above. Patient has endocarditis mitral valve involvement and septic emboli
[2018-05-19] MEDS: Chlorhexidine 0.12% Oral Kit 15 ML UDC OROPHARYNG SCH ×2 (13:08→21:04)
[2018-05-19] MEDS: Senna/Docusate Sodium 8.6/50 MG Tablet PO SCH ×2 (13:09→21:05)
[2018-05-19] MEDS: Heparin 10,000 UNITS/10 ML Vial (for IV use) OTHER PRN (13:17)
--- NOTE | 2018-05-19 13:27 | ECG ---
Date Performed: 05/17/2018 Time Performed: 16:42:16 PTAGE: 38 years EKG: Sinus rhythm NORMAL ECG PREVIOUS TRACING : 04/30/2018 09.30 Compared to previous tracing, now in normal sinus rhythm DOCTOR: Sukhjinder Foster Interpretating Date/Time 05/19/2018 13:26:38
[2018-05-19] MEDS: Metoprolol Tartrate 25 MG Tablet PO SCH ×2 (14:54→18:06)
--- NOTE | 2018-05-19 17:36 | P.PNID ---
Subjective Remarks: afebrile co diarrhea seen right after HD tolerated HD OK Antibiotics: ancef Past Medical History: IVDU Allergies/Adverse Reactions: Allergies No Known Allergies Allergy (Unknown, Uncoded 07/13/17 00:28) Objective Vital Signs 05/18/18 20:00 05/19/18 00:00 05/19/18 04:00 Temperature 100.1 F H 100.2 F H 98.2 F Pulse Rate 119 H 103 H 103 H Respiratory Rate 20 20 20 Blood Pressure 170/99 H 152/90 H 167/97 H Pulse Oximetry 90 L 95 97 05/19/18 08:00 05/19/18 12:00 05/19/18 14:01 Temperature 99.0 F Pulse Rate 99 H 105 H Respiratory Rate 20 Blood Pressure 179/93 H Pulse Oximetry 90 L 97 05/19/18 14:55 05/19/18 16:00 Temperature Pulse Rate 110 H 109 H Respiratory Rate 20 20 Blood Pressure 153/97 H Pulse Oximetry Intake & Output 05/18/18 05/19/18 05/19/18 18:59 06:59 18:59 Intake Total 564 / 564 1072 / 1072 104 / 104 Output Total 325 / 325 4400 / 4400 4200 / 4200 Balance 239 / 239 -3328 / -3328 -4096 / -4096 Weight 88 kg Intake: IV 204 / 204 152 / 152 104 / 104 Cerebyx Inj 100 MGPE In NS Inj 104 / 104 52 / 52 104 / 104 50 ML @ 208 mls/hr IV.SIG Q8H STE[facility]IE Rx#:[id number] Levaquin 500 mg Premix Inj 500 100 / 100 mg In 100 ml @ 100 mls/hr IV. SIG Q48H STEFF[facility]IE Rx#:[id number] Ancef Inj 1,000 MG In NS Inj 100 / 100 100 ML @ 200 mls/hr IV.SIG Q24H STEFFANIE Rx#:[id number] Oral 360 / 360 920 / 920 Output: Urine 325 / 325 400 / 400 200 / 200 Urine/Stool Mix 0 / 0 Hemodialysis Amount 4000 / 4000 4000 / 4000 Gastric Drainage 0 / 0 Right Nare Nasogastric Tube 0 / 0 Other: Date of Last Bowel Movement 05/18/18 05/18/18 # Bowel Movements 1 3 # Incontinent Bowel Movements 3 Lab - Hematology Results 05/18/18 06:54 WBC 12.9 H RBC 2.81 L Hgb 8.0 L Hct 24.2 L MCV 86.2 MCH 28.5 MCHC 33.1 RDW 15.9 Plt Count 326 MPV 7.9 Lab - Chemistry Results 05/18/18 05/18/18 05/18/18 00:27 06:11 06:54 Sodium 134 L Potassium 3.8 Chloride 97 L Carbon Dioxide 27.7 Anion Gap 9 BUN 27 H Creatinine 4.07 H Estimated GFR 17 L POC Glucose 117 H 105 Random Glucose 125 H Calcium 8.0 L Phosphorus 5.0 H Magnesium 1.9 Total Bilirubin 0.4 AST 56 H ALT 11 L Alkaline Phosphatase 92 Total Protein 6.9 Albumin 1.7 L 05/18/18 05/19/18 05/19/18 16:23 05:51 07:45 Sodium Potassium Chloride Carbon Dioxide Anion Gap BUN Creatinine Estimated GFR POC Glucose 110 134 H 121 H Random Glucose Calcium Phosphorus Magnesium Total Bilirubin AST ALT Alkaline Phosphatase Total Protein Albumin 05/19/18 05/19/18 05/19/18 12:31 13:17 17:29 Sodium Potassium Chloride Carbon Dioxide Anion Gap BUN Creatinine Estimated GFR POC Glucose 117 H 113 H 130 H Random Glucose Calcium Phosphorus Magnesium Total Bilirubin AST ALT Alkaline Phosphatase Total Protein Albumin Imaging: ITS Impressions Chest CT 04/30/18 00:00 CONCLUSION: 1. Parenchymal process bilaterally most likely inflammatory and pneumonia. Abdomen/Pelvis CT 04/30/18 08:48 CONCLUSION: 1. 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 2. Haziness in the anterior margins of the perinephric space at the junction of the spleen possibly inflammatory process of uncertain etiology. Head MRI 05/01/18 00:00 CONCLUSION: 1. Multifocal bilateral punctate infarcts, suspicious for embolic disease. 2. No midline shift or mass effect. Lumbar Spine MRI 05/06/18 00:00 CONCLUSION: 1. Large posterior subcutaneous fluid collection with enhancement. This could represent a seroma or abscess. 2. No evidence of osteomyelitis or discitis. Thoracic Spine MRI 05/06/18 00:00 CONCLUSION: 1. Negative thoracic MRI with no evidence of osteomyelitis or discitis. 2. Please see lumbar spine MRI for further details on findings in this region. Head CT 05/06/18 15:42 CONCLUSION: 1. No acute hemorrhage or mass effect. 2. The small bilateral known punctate infarcts seen on the MRI are not distinctly visualized. 3. Mucosal thickening in the ethmoidal air cells, sphenoid sinus and both maxillary sinuses. Abdomen/Bladder Ultrasound 05/08/18 00:00 CONCLUSION: 1. Trace perinephric fluid surrounding the right kidney. 2. Small right pleural effusion. 3. Otherwise normal sonographic appearance of the kidneys without evidence of hydronephrosis. Chest X-Ray 05/12/18 05:00 CONCLUSION: 1. Stable tubes and lines, as above. 2. Significantly improved diffuse patchy bilateral interstitial and alveolar opacities. Physical Exam: GENERAL: NAD SKIN: Warm and dry. evolving extensive petechial and [place] lesions HEAD: Atraumatic. Normocephalic. EYES: Pupils equal and round. No scleral icterus. No injection or drainage. evolvinhg conjunctival hmrgs CARDIOVASCULAR: Regular rate and rhythm. + systolic murmur 2/6 RESPIRATORY: No accessory muscle use. Clear to auscultation. Breath sounds equal bilaterally. GASTROINTESTINAL: Abdomen soft, non-tender, nondistended. Hepatic and splenic margins not palpable. MUSCULOSKELETAL: Extremities without clubbing, cyanosis, or edema. No obvious deformities. 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 Soft tissue abscess L area - not present on US PNA, H flu: clincially resolved Diarrhea, abx associated, C.diff negative 05/15 - cont cefazoline adjusted renally anticipate 6 weeks from 1st negative blood clx unless metastatic infections will require longer tx duration (Stop date Jun 06) - rechk stool for c.diff if worsening diarrhea repeat MRI L spine if persistent back pain dw HD RN
[2018-05-20] MEDS: Insulin NovoLOG Aspart Correctional Sugar Inj SQ SCH ×4 (00:04→17:00)
[2018-05-20] MEDS: Oral Hygiene Kit OROPHARYNG SCH ×4 (00:05→15:35)
[2018-05-20] MEDS: Carboxymethylcellulose 0.5% Opth Drops 15 ML Bottle EACH EYE SCH ×4 (06:06→21:44)
[2018-05-20] MEDS: Fosphenytoin Inj 100 MGPE in Sodium Chlor 0.9% Inj 50 ML IV.SIG SCH (09:09)
[2018-05-20] MEDS: Methadone 10 MG Tablet PO SCH (09:09)
[2018-05-20] MEDS: Senna/Docusate Sodium 8.6/50 MG Tablet PO SCH ×2 (09:10→21:43)
[2018-05-20] MEDS: Chlorhexidine 0.12% Oral Kit 15 ML UDC OROPHARYNG SCH ×2 (09:10→21:43)
[2018-05-20] MEDS: Metoprolol Tartrate 25 MG Tablet PO SCH ×3 (09:10→17:00)
--- NOTE | 2018-05-20 12:25 | P.PN ---
Subjective Interval history: no complians of headache, nausea or vomitng good po voiding T max 103 Physical Exam Vital signs: Vital Signs 05/19/18 14:01 05/19/18 14:55 05/19/18 16:00 Temperature 99.8 F H Pulse Rate 110 H 109 H Respiratory Rate 20 20 Blood Pressure 153/97 H 172/96 H Pulse Oximetry 97 98 05/19/18 18:00 05/19/18 20:00 05/19/18 22:34 Temperature 102.5 F H 99.6 F Pulse Rate 110 H 111 H Respiratory Rate 20 20 Blood Pressure 156/94 H 145/77 H Pulse Oximetry 114 H 05/20/18 00:00 05/20/18 04:00 05/20/18 04:35 Temperature 98.9 F 101.5 F H 100.7 F H Pulse Rate 110 H 96 H Respiratory Rate 22 20 Blood Pressure 157/87 H 170/94 H Pulse Oximetry 94 L 96 05/20/18 08:00 05/20/18 11:11 Temperature 98.0 F Pulse Rate 106 H Respiratory Rate 20 Blood Pressure 167/103 H Pulse Oximetry 98 97 Intake & Output 05/19/18 05/20/18 05/20/18 18:59 06:59 18:59 Intake Total 584 / 584 152 / 152 52 / 52 Output Total 4425 / 4425 100 / 100 Balance -3841 / -3841 / 52 / 52 Weight 80.5 kg Intake: IV 104 / 104 152 / 152 52 / 52 Cerebyx Inj 100 MGPE In NS Inj 104 / 104 52 / 52 52 / 52 50 ML @ 208 mls/hr IV.SIG Q8H [facility] Rx#:[id number] Ancef Inj 1,000 MG In NS Inj 100 / 100 100 ML @ 200 mls/hr IV.SIG Q24H STEFFANIE Rx#:[id number] Oral 480 / 480 Output: Urine 425 / 425 100 / 100 Hemodialysis Amount 4000 / 4000 Other: Date of Last Bowel Movement 05/18/18 05/19/18 # Bowel Movements 1 Narrative: GENERAL: Awake, alert. Oriented 3. interactive, speech clear SKIN: Warm and dry. HEAD: Normocephalic. EYES: No scleral icterus. No injection or drainage. NECK: Supple, trachea midline. No JVD. vasc ath in place right neck CARDIOVASCULAR:Tachycardic and rhythm without murmurs, gallops, or rubs. RESPIRATORY: Breath sounds equal bilaterally. No accessory muscle use. GASTROINTESTINAL: Abdomen soft, nontender MUSCULOSKELETAL: No cyanosis, or edema. neuro exam- non focal - Urinary Catheter Management Condom Cath placed during this visit: no Indwelling Urethral Catheter Cath placed during this visit: yes, but has since been removed by the nurse Reason for continuing: Decision to DC catheter Insertion date: 05/06/18 Insertion time: 16:40 Removal date: 05/14/18 Removal time: 08:00 Results - Labs CBC & Chem 7: 05/18/18 06:54 05/18/18 06:54 Laboratory Results - last 24 hr 05/19/18 05/19/18 05/19/18 12:31 13:17 17:29 POC Glucose 117 H 113 H 130 H 05/20/18 06:10 POC Glucose 104 - Procedures AURELIA Assessment and Plan - Plan 38 years old male Severe sepsis - T max 103 MSSA infective endocarditis Haemophilus influenza pneumonia. New fever ? Drug FEver -On IV Cefazolin, ON genttamycin with HD - will DC IV Levaquin- per ID notes 05.17 -Blood urine and sputum cultures -Blood culture with GPC 4 staph aureus = Continue broad-spectrum antibiotics as per infectious disease. Appreciate assistance. - get repeat blood cultures, CBC, UA - HOld cerebryx - will discuss with ID Acute metabolic encephalopathy- MS improved Multifocal bilateral punctate infarcts, probable septic emboli Polysubstance abuse with withdrawal -Off Precedex. -MRI brain shows Multifocal bilateral punctate infarcts, suspicious for embolic disease. -Neurology consult for embolic bilateral infarcts. Dr. Mike. Continue aspirin -Watch closely for drug withdrawal -Supplement multivitamin thiamine -Watch closely for signs of meningitis/brain abscess from septic emboli -PT OOB = 05/15. Will start low-dose Suboxone for suspected withdrawal. Continue to monitor. = 05/16. Much improved mentation. Patient feels he may be withdrawing. Unable to do low-dose Suboxone. Will try low-dose methadone. = 05/17. Improved on methadone. start on 5 mg daily DC Cerebryx with fever- monitor RESP: Respiratory insufficiency Pneumonia/septic emboli -DuoNeb every 6 hours as needed -Sputum culture if available -CT chest shows bilateral infiltrates =cont antibiotics. Haemophilus influenza. ID following. Appreciate assistance. CV: Lactic acidosis NSTEMI Infective endocarditis Persistent tacjhycardia HYpertension -s/p Normal saline IV fluids 4L bolus -2d echo report prelim negative, -AURELIA shows large mitral valve vegetation (05/03) -Continue aspirin - DC Coreg0- change to Lopressor 25 mg po q 8 for better rate and BP control= today 05/19 - Avoid statins at this time due to hep C -Elevated troponin may be secondary to coronary artery septic emboli GI: Hepatitis C -O/p f/u -Continue regular diet. N : Renal insufficiency -Monitor renal function closely. Dc [place] catheter. Fluid resuscitation as above Hypokalemia. = As per nephrology Hyponatremia. As per nephrology. ID: Pain- history of IVDU - start on methadone 2.5 mg daily- d/w him - he states he got Methdaone 05/17 and was told he would be started HEME: -Monitor CBC, coags ENDO: -Electrolyte replacement per protocol -Sliding scale insulin if needed PROPH: -Bilateral lower extremity SCDs. Lovenox 40 mg sq daily LINES: -Utilize peripheral IVs, central line if needed Discharge Planning: - Self-pay Continues on IV antibiotics. difficult dc. d/w family- father- asking for CM
[2018-05-20 14:05] LABS: Baso # (Auto) 0.1 th/mm3 (0.0-0.2); Baso % (Auto) 0.3 % (0.0-2.0); Eos # (Auto) 0.3 th/mm3 (0.0-0.4); Eos % (Auto) 1.8 % (0.0-4.0); Hematocrit 22.4 % (39.0-51.0); Hemoglobin 7.4 gm/dL (13.0-17.0); Lymph % (Auto) 5.1 % (9.0-44.0); Mean Corpuscular Hemoglobin 28.3 pg (27.0-34.0); Mean Corpuscular Volume 85.8 fL (80.0-100.0); Mean Platelet Volume 7.7 fL (7.0-11.0); Mono # (Auto) 1.6 th/mm3 (0.0-0.9); Mono % (Auto) 8.3 % (0.0-8.0); Neut % (Auto) 84.5 % (16.0-70.0); Platelet Count 428 th/mm3 (150-450); Red Blood Count 2.61 mil/mm3 (4.50-5.90)
[2018-05-21] MEDS ORDERED: Acetaminophen 325 MG Tablet PO ONE (01:17)
[2018-05-21 01:19] LABS: Amorphous Sediment,Urine Occasional /hpf; Bacteria,Urine Occasional /hpf; Bilirubin,Urine Negative (Negative); Clarity,Urine Cloudy (Clear); Color,Urine Yellow (Yellw/Straw); Glucose,Urine (UA) Negative (Negative); Leukocyte Esterase,Urine Trace (Negative); Nitrite,Urine Negative (Negative); Specific Gravity,Urine 1.015 (1.002-1.035); Squamous Epithelial Cell,Urine <1 /hpf (0-5)
[2018-05-21] MEDS: Oral Hygiene Kit OROPHARYNG SCH ×5 (01:29→23:53)
[2018-05-21] MEDS: Carboxymethylcellulose 0.5% Opth Drops 15 ML Bottle EACH EYE SCH ×4 (05:03→21:45)
[2018-05-21] MEDS: Insulin NovoLOG Aspart Correctional Sugar Inj SQ SCH ×5 (06:05→23:53)
[2018-05-21] MEDS: Chlorhexidine 0.12% Oral Kit 15 ML UDC OROPHARYNG SCH ×2 (08:13→19:44)
[2018-05-21] MEDS: Metoprolol Tartrate 25 MG Tablet PO SCH ×3 (08:17→18:17)
[2018-05-21] MEDS: Methadone 10 MG Tablet PO SCH (08:17)
[2018-05-21] MEDS: Senna/Docusate Sodium 8.6/50 MG Tablet PO SCH ×2 (08:18→20:45)
[2018-05-21 09:03] LABS: Baso # (Auto) 0.1 th/mm3 (0.0-0.2); Baso % (Auto) 0.3 % (0.0-2.0); Eos # (Auto) 0.4 th/mm3 (0.0-0.4); Eos % (Auto) 1.9 % (0.0-4.0); Hematocrit 21.1 % (39.0-51.0); Hemoglobin 7.1 gm/dL (13.0-17.0); Lymph # (Auto) 1.3 th/mm3 (1.0-4.8); Lymph % (Auto) 6.1 % (9.0-44.0); Mean Corpuscular HGB Conc 33.6 % (32.0-36.0); Mean Corpuscular Hemoglobin 28.3 pg (27.0-34.0); Mean Corpuscular Volume 84.2 fL (80.0-100.0); Mean Platelet Volume 7.6 fL (7.0-11.0); Mono # (Auto) 2.6 th/mm3 (0.0-0.9); Mono % (Auto) 12.3 % (0.0-8.0); Neut # (Auto) 16.7 th/mm3 (1.8-7.7); Neut % (Auto) 79.4 % (16.0-70.0); Platelet Count 465 th/mm3 (150-450); Red Blood Count 2.51 mil/mm3 (4.50-5.90); Red Cell Distribution Width 15.6 % (11.6-17.2); White Blood Count 21.1 th/mm3 (4.0-11.0)
[2018-05-21 09:35] LABS: Carbon Dioxide 27.6 meq/L (21.0-32.0); Potassium 3.8 meq/L (3.5-5.1)
--- NOTE | 2018-05-21 11:07 | P.PN ---
Subjective Interval history: sitting - side of the bed no complains T down Physical Exam Vital signs: Vital Signs 05/20/18 11:11 05/20/18 12:00 05/20/18 16:00 Temperature 100.3 F H 101.1 F H Pulse Rate 110 H 110 H Respiratory Rate 20 20 Blood Pressure 163/97 H 172/99 H Pulse Oximetry 97 91 L 90 L 05/20/18 16:59 05/20/18 20:00 05/20/18 22:00 Temperature 97.0 F L 98.3 F Pulse Rate 90 111 H 112 H Respiratory Rate 21 Blood Pressure 136/79 137/77 Pulse Oximetry 93 L 05/21/18 00:00 05/21/18 01:07 05/21/18 04:00 Temperature 99.6 F 99.6 F 98.4 F Pulse Rate 118 H 109 H Respiratory Rate 22 18 Blood Pressure 159/89 H 173/95 H Pulse Oximetry 93 L 94 L 05/21/18 08:00 Temperature 99.4 F Pulse Rate 101 H Respiratory Rate 16 Blood Pressure 150/86 H Pulse Oximetry 92 L Intake & Output 05/20/18 05/21/18 05/21/18 18:59 06:59 18:59 Intake Total 532 / 532 580 / 580 Output Total 300 / 300 Balance 532 / 532 280 / 280 Weight 85.7 kg Intake: IV 52 / 52 100 / 100 Cerebyx Inj 100 MGPE In NS Inj 52 / 52 50 ML @ 208 mls/hr IV.SIG Q8H STEFFANIE Rx#:[id number] Ancef Inj 1,000 MG In NS Inj 100 / 100 100 ML @ 200 mls/hr IV.SIG Q24H STEFFANIE Rx#:[id number] Oral 480 / 480 480 / 480 Output: Urine 300 / 300 Other: # Voids 150 # Bowel Movements 1 Narrative: GENERAL: Awake, alert. Oriented 3. interactive, speech clear SKIN: Warm and dry. HEAD: Normocephalic. EYES: No scleral icterus. No injection or drainage. NECK: Supple, trachea midline. No JVD. vasc cath in place right neck CARDIOVASCULAR:Tachycardic and rhythm without murmurs, gallops, or rubs. RESPIRATORY: Breath sounds equal bilaterally. No accessory muscle use. GASTROINTESTINAL: Abdomen soft, nontender MUSCULOSKELETAL: No cyanosis, or edema. neuro exam- non focal - Urinary Catheter Management Condom Cath placed during this visit: no Indwelling Urethral Catheter Cath placed during this visit: yes, but has since been removed by the nurse Reason for continuing: Decision to DC catheter Insertion date: 05/06/18 Insertion time: 16:40 Removal date: 05/14/18 Removal time: 08:00 Results - Labs CBC & Chem 7: 05/21/18 08:47 05/21/18 08:47 Laboratory Results - last 24 hr 05/20/18 05/20/18 05/20/18 13:05 13:40 16:57 WBC 19.0 H RBC 2.61 L Hgb 7.4 L Hct 22.4 L MCV 85.8 MCH 28.3 MCHC 33.0 RDW 16.0 Plt Count 428 D MPV 7.7 Prelim Diff (Auto) Neut % (Auto) 84.5 H Lymph % (Auto) 5.1 L Nicholas % (Auto) 8.3 H Eos % (Auto) 1.8 Baso % (Auto) 0.3 Neut # (Auto) 16.0 H Lymph # (Auto) 1.0 Nicholas # (Auto) 1.6 H Eos # (Auto) 0.3 Baso # (Auto) 0.1 WBC Differential . Diff Scan Differential Comment Auto diff final Sodium Potassium Chloride Carbon Dioxide Anion Gap BUN Creatinine Estimated GFR POC Glucose 110 138 H Random Glucose Calcium Urine Color Urine Clarity Urine pH Ur Specific [place] Urine Protein Urine Glucose (UA) Urine Ketones Urine Occult Blood Urine Nitrate Urine Bilirubin Urine Urobilinogen Ur Leukocyte Esterase Urine RBC Urine WBC Ur Squamous Epith Cells Amorphous Sediment Urine Bacteria Micro UA Comment Ur Microscopic Review Urine Culture Comments 05/20/18 05/21/18 05/21/18 23:44 01:00 06:13 WBC RBC Hgb Hct MCV MCH MCHC RDW Plt Count MPV Prelim Diff (Auto) Neut % (Auto) Lymph % (Auto) Nicholas % (Auto) Eos % (Auto) Baso % (Auto) Neut # (Auto) Lymph # (Auto) Nicholas # (Auto) Eos # (Auto) Baso # (Auto) WBC Differential Diff Scan Differential Comment Sodium Potassium Chloride Carbon Dioxide Anion Gap BUN Creatinine Estimated GFR POC Glucose 155 H 141 H Random Glucose Calcium Urine Color Yellow Urine Clarity Cloudy H Urine pH 5.0 Ur Specific [place] 1.015 Urine Protein 100 H Urine Glucose (UA) Negative Urine Ketones Negative Urine Occult Blood Large H Urine Nitrate Negative Urine Bilirubin Negative Urine Urobilinogen Less than 2 Ur Leukocyte Esterase Trace H Urine RBC Urine WBC 40 H Ur Squamous Epith Cells <1 Amorphous Sediment Occasional H Urine Bacteria Occasional H Micro UA Comment Culture indicated Ur Microscopic Review Not Reportable Urine Culture Comments Culture indicated 05/21/18 05/21/18 08:47 08:47 WBC 21.1 H RBC 2.51 L Hgb 7.1 L Hct 21.1 L MCV 84.2 MCH 28.3 MCHC 33.6 RDW 15.6 Plt Count 465 H MPV 7.6 Prelim Diff (Auto) Slide review pending Neut % (Auto) 79.4 H Lymph % (Auto) 6.1 L Nicholas % (Auto) 12.3 H Eos % (Auto) 1.9 Baso % (Auto) 0.3 Neut # (Auto) 16.7 H Lymph # (Auto) 1.3 Nicholas # (Auto) 2.6 H Eos # (Auto) 0.4 Baso # (Auto) 0.1 WBC Differential . Diff Scan Auto diff confirmed Differential Comment . Sodium 133 L Potassium 3.8 Chloride 96 L Carbon Dioxide 27.6 Anion Gap 9 BUN 50 H Creatinine 4.02 H Estimated GFR 17 L POC Glucose Random Glucose 94 Calcium 8.0 L Urine Color Urine Clarity Urine pH Ur Specific [place] Urine Protein Urine Glucose (UA) Urine Ketones Urine Occult Blood Urine Nitrate Urine Bilirubin Urine Urobilinogen Ur Leukocyte Esterase Urine RBC Urine WBC Ur Squamous Epith Cells Amorphous Sediment Urine Bacteria Micro UA Comment Ur Microscopic Review Urine Culture Comments Microbiology 05/20/18 13:40 Blood - Peripheral Aerobic Blood Culture - Preliminary No growth in 1 day 05/20/18 13:40 Blood - Peripheral Anaerobic Blood Culture - Preliminary No growth in 1 day 05/20/18 13:50 Blood - Peripheral Aerobic Blood Culture - Preliminary No growth in 1 day 05/20/18 13:50 Blood - Peripheral Anaerobic Blood Culture - Preliminary No growth in 1 day - Procedures AURELIA Assessment and Plan - Plan 38 years old male Severe sepsis - T max 103 MSSA infective endocarditis Haemophilus influenza pneumonia. New fever ? Drug FEver -On IV Cefazolin, ON genttamycin with HD - will DC IV Levaquin- per ID notes 9.20 -Blood urine and sputum cultures -Blood culture with GPC 4 staph aureus = Continue broad-spectrum antibiotics as per infectious disease. Appreciate assistance. - get repeat blood cultures, CBC, UA T better- Cerebryx was DC 05/20- continue to montior T Acute metabolic encephalopathy- MS improved Multifocal bilateral punctate infarcts, probable septic emboli Polysubstance abuse with withdrawal -Off Precedex. -MRI brain shows Multifocal bilateral punctate infarcts, suspicious for embolic disease. -Neurology consult for embolic bilateral infarcts. Dr. Mike. Continue aspirin -Watch closely for drug withdrawal -Supplement multivitamin thiamine -Watch closely for signs of meningitis/brain abscess from septic emboli -PT OOB = 05/15. Will start low-dose Suboxone for suspected withdrawal. Continue to monitor. = 05/16. Much improved mentation. Patient feels he may be withdrawing. Unable to do low-dose Suboxone. Will try low-dose methadone. = 05/17. Improved on methadone. start on 5 mg daily DC Cerebryx with fever- monitor RESP: Respiratory insufficiency Pneumonia/septic emboli -DuoNeb every 6 hours as needed -Sputum culture if available -CT chest shows bilateral infiltrates =cont antibiotics. Haemophilus influenza. ID following. Appreciate assistance. CV: Lactic acidosis NSTEMI Infective endocarditis Persistent tacjhycardia HYpertension -s/p Normal saline IV fluids 4L bolus -2d echo report prelim negative, -AURELIA shows large mitral valve vegetation (05/03) -Continue aspirin - DC Coreg0- changed to Lopressor 25 mg po q 8 for better rate and BP control= 05/19 - Avoid statins at this time due to hep C -Elevated troponin may be secondary to coronary artery septic emboli GI: Hepatitis C -O/p f/u -Continue regular diet. N : Renal insufficiency -Monitor renal function closely. Dc [place] catheter. Fluid resuscitation as above Hypokalemia. = As per nephrology Hyponatremia. As per nephrology. ID: Pain- history of IVDU - start on methadone 2.5 mg daily- d/w him - he states he got Methdaone 05/17 and was told he would be started HEME: -Monitor CBC, coags ENDO: -Electrolyte replacement per protocol -Sliding scale insulin if needed PROPH: -Bilateral lower extremity SCDs. Lovenox 40 mg sq daily LINES: -Utilize peripheral IVs, central line if needed Discharge Planning: - Self-pay Continues on IV antibiotics. difficult dc. d/w family- father- asking for CM
--- NOTE | 2018-05-21 12:52 | P.PNNP ---
Subjective Interval history: Patient stable Physical Exam Vital signs: Vital Signs 05/20/18 16:00 05/20/18 16:59 05/20/18 20:00 Temperature 101.1 F H 97.0 F L Pulse Rate 110 H 90 111 H Respiratory Rate 20 Blood Pressure 172/99 H 136/79 Pulse Oximetry 90 L 05/20/18 22:00 05/21/18 00:00 05/21/18 01:07 Temperature 98.3 F 99.6 F 99.6 F Pulse Rate 112 H 118 H Respiratory Rate 21 22 Blood Pressure 137/77 159/89 H Pulse Oximetry 93 L 93 L 05/21/18 04:00 05/21/18 08:00 05/21/18 11:39 Temperature 98.4 F 99.4 F Pulse Rate 109 H 101 H Respiratory Rate 18 16 Blood Pressure 173/95 H 150/86 H Pulse Oximetry 94 L 92 L 98 05/21/18 12:00 Temperature 100 F H Pulse Rate 93 H Respiratory Rate 20 Blood Pressure 163/93 H Pulse Oximetry 93 L Intake & Output 05/20/18 05/21/18 05/21/18 18:59 06:59 18:59 Intake Total 532 / 532 580 / 580 Output Total 300 / 300 Balance 532 / 532 280 / 280 Weight 85.7 kg Intake: IV 52 / 52 100 / 100 Cerebyx Inj 100 MGPE In NS Inj 52 / 52 50 ML @ 208 mls/hr IV.SIG Q8H STEFFANIE Rx#:[id number] Ancef Inj 1,000 MG In NS Inj 100 / 100 100 ML @ 200 mls/hr IV.SIG Q24H STEFFANIE Rx#:[id number] Oral 480 / 480 480 / 480 Output: Urine 300 / 300 Other: # Voids 150 # Bowel Movements 1 Narrative: GENERAL: Awake, alert. Oriented 3. interactive, speech clear SKIN: Warm and dry. HEAD: Normocephalic. EYES: No scleral icterus. No injection or drainage. NECK: Supple, trachea midline. No JVD. vasc cath in place right neck CARDIOVASCULAR:Tachycardic and rhythm without murmurs, gallops, or rubs. RESPIRATORY: Breath sounds equal bilaterally. No accessory muscle use. GASTROINTESTINAL: Abdomen soft, nontender MUSCULOSKELETAL: No cyanosis, or edema. neuro exam- non focal - Urinary Catheter Management Condom Cath placed during this visit: no Indwelling Urethral Catheter Cath placed during this visit: yes, but has since been removed by the nurse Reason for continuing: Decision to DC catheter Insertion date: 05/06/18 Insertion time: 16:40 Removal date: 05/14/18 Removal time: 08:00 Assessment and Plan - Assessment (1) Altered mental status Code(s): R41.82 - Altered mental status, unspecified Status: Acute Plan: Improved, monitor. (2) Endocarditis Code(s): I38 - Endocarditis, valve unspecified Status: Acute (3) Sepsis Code(s): A41.9 - Sepsis, unspecified organism Status: Acute Qualifiers: Sepsis type: sepsis due to unspecified organism Qualified Code(s): A41.9 - Sepsis, unspecified organism (4) Hyponatremia Code(s): E87.1 - Hypo-osmolality and hyponatremia Status: Acute - Plan Patient in acute renal failure creatinine remain elevated. Hemodialysis started , Dialysis Monday and Monday Patient has endocarditis mitral valve involvement and septic emboli Continue with antibiotics Anemia start Procrit with dialysis
--- NOTE | 2018-05-21 13:45 | P.DIET ---
Nutritional Evaluation Type of nutrition evaluation: follow-up Nutrition consult regarding: Diet Evaluation Objective - Diagnosis ESTEMI, sepsis, dehydration, hypokalemia - Objective % IBW: 134 (IBW = 148) Body Weight Used for Calculations: IBW (67.3 kg) Energy Needs - Lower Range (kCal/kg): 30 Energy Needs - Upper Range (kCal/kg): 35 Lower Limit kCal/kg (kCals): 2,018 Upper Limit kCal/kg (kCals): 2,356 Lower Limit Protein Factor (Grams per Kg): 1.2 Upper Limit Protein Factor (Grams per Kg): 1.5 Lower Protein Needs (Protein): 81 Upper Protein Needs (Protein): 101 Dietitian Reviewed in Medical Record: Curent medications, Intake & Output, Labs , Medical history, Tube feeding Diet Order: Reg Objective Comments: PMH: IV drug use, previous endocarditis, Hepatitis C Assessment Assessment: TFing was d/morgan on 05/14. Pt. noted to have good PO intake of his regular diet. RD to follow as needed. Recommendations: RD to follow as needed. Dietitian to Monitor: Lab values, Intake & Output, Tube feeding tolerance, Weight change, Medical course
[2018-05-22] MEDS: Oral Hygiene Kit OROPHARYNG SCH ×4 (03:11→23:25)
[2018-05-22] MEDS: Carboxymethylcellulose 0.5% Opth Drops 15 ML Bottle EACH EYE SCH ×4 (03:11→21:18)
[2018-05-22] MEDS: Insulin NovoLOG Aspart Correctional Sugar Inj SQ SCH ×4 (07:00→23:24)
[2018-05-22] MEDS: Chlorhexidine 0.12% Oral Kit 15 ML UDC OROPHARYNG SCH ×2 (07:09→20:34)
[2018-05-22] MEDS: Loperamide 2 MG Capsule PO PRN (07:49)
[2018-05-22] MEDS: Methadone 10 MG Tablet PO SCH (08:00)
[2018-05-22] MEDS: Metoprolol Tartrate 25 MG Tablet PO SCH ×3 (08:00→17:04)
[2018-05-22] MEDS: Senna/Docusate Sodium 8.6/50 MG Tablet PO SCH ×2 (08:13→20:35)
[2018-05-22] MEDS: Heparin 10,000 UNITS/10 ML Vial (for IV use) OTHER PRN (09:53)
--- NOTE | 2018-05-22 11:45 | P.PNNP ---
Subjective Interval history: Patient is seen during dialysis Physical Exam Vital signs: Vital Signs 05/21/18 12:00 05/21/18 16:00 05/21/18 18:00 Temperature 100 F H 99.7 F H Pulse Rate 95 H 101 H 104 H Respiratory Rate 20 20 Blood Pressure 163/93 H 166/92 H Pulse Oximetry 93 L 96 05/21/18 20:00 05/22/18 00:00 05/22/18 04:00 Temperature 100.3 F H 100.4 F H 98.2 F Pulse Rate 110 H 109 H 108 H Respiratory Rate 17 16 17 Blood Pressure 129/91 H 146/87 H 122/64 Pulse Oximetry 98 95 94 L 05/22/18 08:00 Temperature 98.9 F Pulse Rate 108 H Respiratory Rate 16 Blood Pressure 167/98 H Pulse Oximetry 93 L Intake & Output 05/21/18 05/22/18 05/22/18 18:59 06:59 18:59 Intake Total 860 / 860 Output Total 600 / 600 700 / 700 3500 / 3500 Balance -600 / -600 160 / 160 -3500 / -3500 Weight 86 kg Intake: IV 100 / 100 Ancef Inj 1,000 MG In NS Inj 100 / 100 100 ML @ 200 mls/hr IV.SIG Q24H STEFFANIE Rx#:[id number] Oral 760 / 760 Output: Urine 600 / 600 700 / 700 Hemodialysis Amount 3500 / 3500 Other: Date of Last Bowel Movement 05/22/18 # Incontinent Bowel Movements 1 Narrative: GENERAL: Awake, alert. Oriented 3. interactive, speech clear SKIN: Warm and dry. HEAD: Normocephalic. EYES: No scleral icterus. No injection or drainage. NECK: Supple, trachea midline. No JVD. vasc cath in place right neck CARDIOVASCULAR:Tachycardic and rhythm without murmurs, gallops, or rubs. RESPIRATORY: Breath sounds equal bilaterally. No accessory muscle use. GASTROINTESTINAL: Abdomen soft, nontender MUSCULOSKELETAL: No cyanosis, or edema. neuro exam- non focal - Urinary Catheter Management Condom Cath placed during this visit: no Indwelling Urethral Catheter Cath placed during this visit: yes, but has since been removed by the nurse Reason for continuing: Decision to DC catheter Insertion date: 05/06/18 Insertion time: 16:40 Removal date: 05/14/18 Removal time: 08:00 Assessment and Plan - Assessment (1) Altered mental status Code(s): R41.82 - Altered mental status, unspecified Status: Acute Plan: Improved, monitor. (2) Endocarditis Code(s): I38 - Endocarditis, valve unspecified Status: Acute (3) Sepsis Code(s): A41.9 - Sepsis, unspecified organism Status: Acute Qualifiers: Sepsis type: sepsis due to unspecified organism Qualified Code(s): A41.9 - Sepsis, unspecified organism (4) Hyponatremia Code(s): E87.1 - Hypo-osmolality and hyponatremia Status: Acute - Plan Patient in acute renal failure creatinine remain elevated. Hemodialysis started , Dialysis Monday and Monday During dialysis tolerating it well 3.5 L ultrafiltration Patient has endocarditis mitral valve involvement and septic emboli Continue with antibiotics Anemia start Procrit with dialysis
--- NOTE | 2018-05-22 12:33 | P.PNIM ---
Subjective Interval history: f/u; endocarditis in no acute distress. T max 100.4. has some back pain. no other complaints. Physical Exam Vital signs: Vital Signs 05/21/18 16:00 05/21/18 18:00 05/21/18 20:00 Temperature 99.7 F H 100.3 F H Pulse Rate 101 H 104 H 110 H Respiratory Rate 20 17 Blood Pressure 166/92 H 129/91 H Pulse Oximetry 96 98 05/22/18 00:00 05/22/18 04:00 05/22/18 08:00 Temperature 100.4 F H 98.2 F 98.9 F Pulse Rate 109 H 108 H 108 H Respiratory Rate 16 17 16 Blood Pressure 146/87 H 122/64 167/98 H Pulse Oximetry 95 94 L 93 L Intake & Output 05/21/18 05/22/18 05/22/18 18:59 06:59 18:59 Intake Total 860 / 860 Output Total 600 / 600 700 / 700 3500 / 3500 Balance -600 / -600 160 / 160 -3500 / -3500 Weight 86 kg Intake: IV 100 / 100 Ancef Inj 1,000 MG In NS Inj 100 / 100 100 ML @ 200 mls/hr IV.SIG Q24H STEFFANIE Rx#:[id number] Oral 760 / 760 Output: Urine 600 / 600 700 / 700 Hemodialysis Amount 3500 / 3500 Other: Date of Last Bowel Movement 05/22/18 # Incontinent Bowel Movements 1 - Constitutional no acute distress - Routine Respiratory Exam Present: CTA bilaterally - Routine Cardiovascular Exam Present: RRR - Routine Abdominal Exam Present: soft - Routine Extremities Exam Comments: no pedal edema. - Routine Neurological Exam Present: alert - Urinary Catheter Management Condom Cath placed during this visit: no Indwelling Urethral Catheter Cath placed during this visit: yes, but has since been removed by the nurse Reason for continuing: Decision to DC catheter Insertion date: 05/06/18 Insertion time: 16:40 Removal date: 05/14/18 Removal time: 08:00 Results - Labs CBC & Chem 7: 05/21/18 08:47 05/21/18 08:47 Laboratory Results - last 24 hr 05/21/18 05/22/18 05/22/18 23:49 11:23 11:25 POC Glucose 108 129 H 109 Microbiology 05/20/18 13:40 Blood - Peripheral Aerobic Blood Culture - Preliminary No growth in 2 days 05/20/18 13:40 Blood - Peripheral Anaerobic Blood Culture - Preliminary No growth in 2 days 05/20/18 13:50 Blood - Peripheral Aerobic Blood Culture - Preliminary No growth in 2 days 05/20/18 13:50 Blood - Peripheral Anaerobic Blood Culture - Preliminary No growth in 2 days 05/21/18 01:00 Clean Catch Urine Urine Culture - Preliminary No growth in 24 hours - Procedures AURELIA Assessment and Plan - Plan Severe sepsis - MSSA infective endocarditis Haemophilus influenza pneumonia. New fever ? Drug FEver -On IV Cefazolin, ON Gentamicin with HD -Blood culture with GPC 4 staph aureus -Temps better- Cerebryx was DC 05/20- continue to montior T Acute metabolic encephalopathy- MS improved Multifocal bilateral punctate infarcts, probable septic emboli Polysubstance abuse with withdrawal -MRI brain shows Multifocal bilateral punctate infarcts, suspicious for embolic disease. -Neurology consult for embolic bilateral infarcts. Dr. Mike. Continue aspirin -Watch closely for drug withdrawal -Supplement multivitamin thiamine -Watch closely for signs of meningitis/brain abscess from septic emboli -PT OOB Respiratory insufficiency-resolved Pneumonia/septic emboli -DuoNeb every 6 hours as needed -Sputum culture if available -CT chest shows bilateral infiltrates -cont antibiotics. Haemophilus influenza. ID following. Appreciate assistance. Lactic acidosis NSTEMI Infective endocarditis Persistent tacjhycardia Hypertension -s/p Normal saline IV fluids 4L bolus -AURELIA shows large mitral valve vegetation (05/03) -Continue aspirin - DC Coreg- changed to Lopressor 25 mg po q 8 for better rate and BP control= - Avoid statins at this time due to hep C -Elevated troponin may be secondary to coronary artery septic emboli Hepatitis C -O/p f/u -Continue regular diet. N acute kidney injury -Nephrology consulted -started on HD -will monitor the renal function. Anemia- of chronic disease on Epogen with HD- will monitor. Pain- history of IVDU - started on methadone 5 mg daily- d/w him - he states he got Methdaone 05/17 and was told he would be started PROPH: -Bilateral lower extremity SCDs. Discharge Planning: - Self-pay Continues on IV antibiotics. difficult dc. Discharge Planning: on IV antibiotics. not ready for discharge.
--- NOTE | 2018-05-22 18:02 | P.PNID ---
Subjective Remarks: intermittent fever up to 100.3-100.4 WBC up to 21 K co diarrhea, 2 watery BMs today c/o pain all over , including back pain con on HD Antibiotics: ancef Past Medical History: IVDU Allergies/Adverse Reactions: Allergies No Known Allergies Allergy (Unknown, Uncoded 07/13/17 00:28) Objective Vital Signs 05/21/18 18:00 05/21/18 20:00 05/22/18 00:00 Temperature 100.3 F H 100.4 F H Pulse Rate 104 H 110 H 109 H Respiratory Rate 17 16 Blood Pressure 129/91 H 146/87 H Pulse Oximetry 98 95 05/22/18 04:00 05/22/18 08:00 05/22/18 12:00 Temperature 98.2 F 98.9 F 97.7 F Pulse Rate 108 H 108 H 104 H Respiratory Rate 17 16 16 Blood Pressure 122/64 167/98 H 153/87 H Pulse Oximetry 94 L 93 L 96 Intake & Output 05/21/18 05/22/18 05/22/18 18:59 06:59 18:59 Intake Total 860 / 860 Output Total 600 / 600 700 / 700 3500 / 3500 Balance -600 / -600 160 / 160 -3500 / -3500 Weight 86 kg Intake: IV 100 / 100 Ancef Inj 1,000 MG In NS Inj 100 / 100 100 ML @ 200 mls/hr IV.SIG Q24H [facility] Rx#:[id number] Oral 760 / 760 Output: Urine 600 / 600 700 / 700 Hemodialysis Amount 3500 / 3500 Other: Date of Last Bowel Movement 05/22/18 # Incontinent Bowel Movements 1 05/20/18 13:40 Blood - Peripheral Aerobic Blood Culture - Preliminary No growth in 2 days 05/20/18 13:40 Blood - Peripheral Anaerobic Blood Culture - Preliminary No growth in 2 days 05/20/18 13:50 Blood - Peripheral Aerobic Blood Culture - Preliminary No growth in 2 days 05/20/18 13:50 Blood - Peripheral Anaerobic Blood Culture - Preliminary No growth in 2 days 05/21/18 01:00 Clean Catch Urine Urine Culture - Preliminary No growth in 24 hours Lab - Hematology Results 05/21/18 08:47 WBC 21.1 H RBC 2.51 L Hgb 7.1 L Hct 21.1 L MCV 84.2 MCH 28.3 MCHC 33.6 RDW 15.6 Plt Count 465 H MPV 7.6 Prelim Diff (Auto) Slide review pending Neut % (Auto) 79.4 H Lymph % (Auto) 6.1 L Castro % (Auto) 12.3 H Eos % (Auto) 1.9 Baso % (Auto) 0.3 Neut # (Auto) 16.7 H Lymph # (Auto) 1.3 Castro # (Auto) 2.6 H Eos # (Auto) 0.4 Baso # (Auto) 0.1 WBC Differential . Diff Scan Auto diff confirmed Differential Comment . Lab - Chemistry Results 05/20/18 05/21/18 05/21/18 23:44 06:13 08:47 Sodium 133 L Potassium 3.8 Chloride 96 L Carbon Dioxide 27.6 Anion Gap 9 BUN 50 H Creatinine 4.02 H Estimated GFR 17 L POC Glucose 155 H 141 H Random Glucose 94 Calcium 8.0 L 05/21/18 05/21/18 05/22/18 11:25 23:49 11:23 Sodium Potassium Chloride Carbon Dioxide Anion Gap BUN Creatinine Estimated GFR POC Glucose 126 H 108 129 H Random Glucose Calcium 05/22/18 05/22/18 11:25 16:57 Sodium Potassium Chloride Carbon Dioxide Anion Gap BUN Creatinine Estimated GFR POC Glucose 109 119 H Random Glucose Calcium Imaging: ITS Impressions Chest CT 04/30/18 00:00 CONCLUSION: 1. Parenchymal process bilaterally most likely inflammatory and pneumonia. Abdomen/Pelvis CT 04/30/18 08:48 CONCLUSION: 1. 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 2. Haziness in the anterior margins of the perinephric space at the junction of the spleen possibly inflammatory process of uncertain etiology. Head MRI 05/01/18 00:00 CONCLUSION: 1. Multifocal bilateral punctate infarcts, suspicious for embolic disease. 2. No midline shift or mass effect. Lumbar Spine MRI 05/06/18 00:00 CONCLUSION: 1. Large posterior subcutaneous fluid collection with enhancement. This could represent a seroma or abscess. 2. No evidence of osteomyelitis or discitis. Thoracic Spine MRI 05/06/18 00:00 CONCLUSION: 1. Negative thoracic MRI with no evidence of osteomyelitis or discitis. 2. Please see lumbar spine MRI for further details on findings in this region. Head CT 05/06/18 15:42 CONCLUSION: 1. No acute hemorrhage or mass effect. 2. The small bilateral known punctate infarcts seen on the MRI are not distinctly visualized. 3. Mucosal thickening in the ethmoidal air cells, sphenoid sinus and both maxillary sinuses. Abdomen/Bladder Ultrasound 05/08/18 00:00 CONCLUSION: 1. Trace perinephric fluid surrounding the right kidney. 2. Small right pleural effusion. 3. Otherwise normal sonographic appearance of the kidneys without evidence of hydronephrosis. Chest X-Ray 05/12/18 05:00 CONCLUSION: 1. Stable tubes and lines, as above. 2. Significantly improved diffuse patchy bilateral interstitial and alveolar opacities. Physical Exam: GENERAL: NAD SKIN: Warm and dry. evolving extensive petechial and Janeway lesions HEAD: Atraumatic. Normocephalic. EYES: Pupils equal and round. No scleral icterus. No injection or drainage. evolvinhg conjunctival hmrgs CARDIOVASCULAR: Regular rate and rhythm. + systolic murmur 2/6 RESPIRATORY: No accessory muscle use. Clear to auscultation. Breath sounds equal bilaterally. GASTROINTESTINAL: Abdomen soft, moderately tender RLQ/LLQ, nmoderately distended. Hepatic and splenic margins not palpable. MUSCULOSKELETAL: Extremities without clubbing, cyanosis, or edema. No obvious deformities. 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 Soft tissue abscess L area - not present on US PNA, H flu: clincially resolved Diarrhea, abx associated, C.diff negative 05/15 Persistent diarrhea, abd pain Persistent fever - cont cefazoline adjusted renally anticipate 6 weeks from 1st negative blood clx unless metastatic infections will require longer tx duration (Stop date Jun 06) - rechk stool for c.diff monitor WBC, fever consider repeat MRI L dw HD RN
[2018-05-23] MEDS: Insulin NovoLOG Aspart Correctional Sugar Inj SQ SCH ×4 (01:01→18:11)
[2018-05-23] MEDS: Oral Hygiene Kit OROPHARYNG SCH ×3 (03:50→16:00)
[2018-05-23] MEDS: Carboxymethylcellulose 0.5% Opth Drops 15 ML Bottle EACH EYE SCH ×4 (03:50→22:12)
[2018-05-23 05:08] LABS: Baso # (Auto) 0.1 th/mm3 (0.0-0.2); Baso % (Auto) 0.5 % (0.0-2.0); Eos # (Auto) 0.8 th/mm3 (0.0-0.4); Eos % (Auto) 3.3 % (0.0-4.0); Hematocrit 23.3 % (39.0-51.0); Hemoglobin 7.6 gm/dL (13.0-17.0); Lymph # (Auto) 1.9 th/mm3 (1.0-4.8); Mean Corpuscular HGB Conc 32.9 % (32.0-36.0); Mean Corpuscular Hemoglobin 27.8 pg (27.0-34.0); Mean Corpuscular Volume 84.6 fL (80.0-100.0); Mean Platelet Volume 7.7 fL (7.0-11.0); Mono # (Auto) 3.2 th/mm3 (0.0-0.9); Mono % (Auto) 13.2 % (0.0-8.0); Neut # (Auto) 18.4 th/mm3 (1.8-7.7); Platelet Count 639 th/mm3 (150-450); Red Blood Count 2.75 mil/mm3 (4.50-5.90); Red Cell Distribution Width 15.9 % (11.6-17.2); White Blood Count 24.5 th/mm3 (4.0-11.0)
[2018-05-23 05:36] LABS: Calcium 7.7 mg/dL (8.5-10.1); Carbon Dioxide 28.3 meq/L (21.0-32.0); Potassium 3.5 meq/L (3.5-5.1)
[2018-05-23 06:43] LABS: Platelet Morphology Normal (Normal)
[2018-05-23] MEDS: Chlorhexidine 0.12% Oral Kit 15 ML UDC OROPHARYNG SCH ×2 (07:24→20:38)
[2018-05-23] MEDS: Metoprolol Tartrate 25 MG Tablet PO SCH ×3 (09:49→18:54)
[2018-05-23] MEDS: Methadone 10 MG Tablet PO SCH (09:49)
[2018-05-23] MEDS: Senna/Docusate Sodium 8.6/50 MG Tablet PO SCH ×2 (09:49→20:38)
--- NOTE | 2018-05-23 11:29 | P.PNIM ---
Subjective Interval history: f/u; endocarditis in no acute distress. but still complaining of back pain. remains afebrile today. says that his diarrhea is improving. Physical Exam Vital signs: Vital Signs 05/22/18 12:00 05/22/18 16:00 05/22/18 19:28 Temperature 97.7 F 98.2 F Pulse Rate 104 H 112 H Respiratory Rate 16 16 Blood Pressure 153/87 H 152/85 H Pulse Oximetry 96 90 L 97 05/22/18 20:00 05/23/18 00:00 05/23/18 04:00 Temperature 99.2 F 99.3 F 98.8 F Pulse Rate 108 H 106 H 103 H Respiratory Rate 21 21 19 Blood Pressure 129/70 130/70 142/68 H Pulse Oximetry 92 L 93 L 92 L 05/23/18 08:00 05/23/18 08:29 Temperature 98.6 F Pulse Rate 114 H Respiratory Rate 16 Blood Pressure 151/88 H Pulse Oximetry 95 93 L Intake & Output 05/22/18 05/23/18 05/23/18 18:59 06:59 18:59 Intake Total 1022 / 1022 Output Total 3725 / 3725 400 / 400 Balance -3725 / -3725 622 / 622 Intake: IV 100 / 100 Ancef Inj 1,000 MG In NS Inj 100 / 100 100 ML @ 200 mls/hr IV.SIG Q24H [facility] Rx#:[id number] Oral 922 / 922 Output: Urine 225 / 225 400 / 400 Hemodialysis Amount 3500 / 3500 Other: Date of Last Bowel Movement 05/22/18 - Constitutional no acute distress, chronically ill appearing - Routine Respiratory Exam Present: CTA bilaterally - Routine Cardiovascular Exam Present: RRR - Routine Abdominal Exam Present: soft - Routine Extremities Exam Comments: no pedal edema. - Routine Neurological Exam Present: alert, oriented X3 - Urinary Catheter Management Condom Cath placed during this visit: no Indwelling Urethral Catheter Cath placed during this visit: yes, but has since been removed by the nurse Reason for continuing: Decision to DC catheter Insertion date: 05/06/18 Insertion time: 16:40 Removal date: 05/14/18 Removal time: 08:00 Results - Labs CBC & Chem 7: 05/23/18 04:33 05/23/18 04:33 Laboratory Results - last 24 hr 05/22/18 05/22/18 05/22/18 11:23 11:25 16:57 WBC RBC Hgb Hct MCV MCH MCHC RDW Plt Count MPV Prelim Diff (Auto) Neut % (Auto) Lymph % (Auto) Towns % (Auto) Eos % (Auto) Baso % (Auto) Neut # (Auto) Lymph # (Auto) [place] # (Auto) Eos # (Auto) Baso # (Auto) WBC Differential Diff Scan Differential Comment Platelet Estimate Platelet Morphology Sodium Potassium Chloride Carbon Dioxide Anion Gap BUN Creatinine Estimated GFR POC Glucose 129 H 109 119 H Random Glucose Calcium 05/23/18 05/23/18 05/23/18 00:59 04:33 04:33 WBC 24.5 H RBC 2.75 L Hgb 7.6 L Hct 23.3 L MCV 84.6 MCH 27.8 MCHC 32.9 RDW 15.9 Plt Count 639 H D MPV 7.7 Prelim Diff (Auto) Slide review pending Neut % (Auto) 75.0 H Lymph % (Auto) 8.0 L [place] % (Auto) 13.2 H Eos % (Auto) 3.3 Baso % (Auto) 0.5 Neut # (Auto) 18.4 H Lymph # (Auto) 1.9 Towns # (Auto) 3.2 H Eos # (Auto) 0.8 H Baso # (Auto) 0.1 WBC Differential . Diff Scan Auto diff confirmed Differential Comment . Platelet Estimate High H Platelet Morphology Normal Sodium 131 L Potassium 3.5 Chloride 93 L Carbon Dioxide 28.3 Anion Gap 10 BUN 39 H Creatinine 3.17 H Estimated GFR 22 L POC Glucose 155 H Random Glucose 97 Calcium 7.7 L Microbiology 05/20/18 13:40 Blood - Peripheral Aerobic Blood Culture - Preliminary No growth in 3 days 05/20/18 13:40 Blood - Peripheral Anaerobic Blood Culture - Preliminary No growth in 3 days 05/20/18 13:50 Blood - Peripheral Aerobic Blood Culture - Preliminary No growth in 3 days 05/20/18 13:50 Blood - Peripheral Anaerobic Blood Culture - Preliminary No growth in 3 days 05/21/18 01:00 Clean Catch Urine Urine Culture - Final No growth in 48 hours - Procedures AURELIA Assessment and Plan - Plan Severe sepsis - MSSA infective endocarditis Haemophilus influenza pneumonia. New fever ? Drug Fever?- temps are better. worsening leukocytosis -On IV Cefazolin, ON Gentamicin with HD -Blood culture with GPC 4 staph aureus -Temps better- Cerebryx was DC 05/20- continue to montior Temps. -repeat C-diff pending; will consider repeated MRI lumbar spine- Acute metabolic encephalopathy- MS improved Multifocal bilateral punctate infarcts, probable septic emboli Polysubstance abuse with withdrawal -MRI brain shows Multifocal bilateral punctate infarcts, suspicious for embolic disease. -Neurology consult for embolic bilateral infarcts. Dr. Mike. Continue aspirin -Watch closely for drug withdrawal -Supplement multivitamin thiamine -Watch closely for signs of meningitis/brain abscess from septic emboli -PT OOB Respiratory insufficiency-resolved Pneumonia/septic emboli -DuoNeb every 6 hours as needed -Sputum culture if available -CT chest shows bilateral infiltrates -cont antibiotics. Haemophilus influenza. ID following. Appreciate assistance. Lactic acidosis NSTEMI Infective endocarditis Persistent tacjhycardia Hypertension -s/p Normal saline IV fluids 4L bolus -AURELIA shows large mitral valve vegetation (05/03) -Continue aspirin - DC'ed Coreg- changed to Lopressor 25 mg po q 8 for better rate and BP control - Avoid statins at this time due to hep C -Elevated troponin may be secondary to coronary artery septic emboli Hepatitis C -O/p f/u -Continue regular diet. acute kidney injury -Nephrology consulted -started on HD -will monitor the renal function. Anemia- of chronic disease on Epogen with HD- will monitor. Pain- history of IVDU - started on methadone 5 mg daily- d/w him - he states he got Methdaone 05/17 and was told he would be started PROPH: -Bilateral lower extremity SCDs. Discharge Planning: - Self-pay Continues on IV antibiotics. difficult dc. Discharge Planning: on IV antibiotics. with worsening leukocytosis. not ready for discharge.
--- NOTE | 2018-05-23 16:56 | P.PNNP ---
Subjective Interval history: Patient complaining of body aches and temperature loose stools Physical Exam Vital signs: Vital Signs 05/22/18 19:28 05/22/18 20:00 05/23/18 00:00 Temperature 99.2 F 99.3 F Pulse Rate 108 H 106 H Respiratory Rate 21 21 Blood Pressure 129/70 130/70 Pulse Oximetry 97 92 L 93 L 05/23/18 04:00 05/23/18 08:00 05/23/18 08:29 Temperature 98.8 F 98.6 F Pulse Rate 103 H 114 H Respiratory Rate 19 16 Blood Pressure 142/68 H 151/88 H Pulse Oximetry 92 L 95 93 L 05/23/18 12:00 Temperature 98.0 F Pulse Rate 116 H Respiratory Rate 16 Blood Pressure 145/90 H Pulse Oximetry 95 Intake & Output 05/22/18 05/23/18 05/23/18 18:59 06:59 18:59 Intake Total 1022 / 1022 Output Total 3725 / 3725 400 / 400 Balance -3725 / -3725 622 / 622 Intake: IV 100 / 100 Ancef Inj 1,000 MG In NS Inj 100 / 100 100 ML @ 200 mls/hr IV.SIG Q24H [facility] Rx#:[id number] Oral 922 / 922 Output: Urine 225 / 225 400 / 400 Hemodialysis Amount 3500 / 3500 Other: Date of Last Bowel Movement 05/22/18 Narrative: GENERAL: Awake, alert. Oriented 3. interactive, speech clear SKIN: Warm and dry. HEAD: Normocephalic. EYES: No scleral icterus. No injection or drainage. NECK: Supple, trachea midline. No JVD. vasc cath in place right neck CARDIOVASCULAR:Tachycardic and rhythm without murmurs, gallops, or rubs. RESPIRATORY: Breath sounds equal bilaterally. No accessory muscle use. GASTROINTESTINAL: Abdomen soft, nontender MUSCULOSKELETAL: No cyanosis, or edema. neuro exam- non focal - Urinary Catheter Management Condom Cath placed during this visit: no Indwelling Urethral Catheter Cath placed during this visit: yes, but has since been removed by the nurse Reason for continuing: Decision to DC catheter Insertion date: 05/06/18 Insertion time: 16:40 Removal date: 05/14/18 Removal time: 08:00 Assessment and Plan - Assessment (1) Altered mental status Code(s): R41.82 - Altered mental status, unspecified Status: Acute Plan: Improved, monitor. (2) Endocarditis Code(s): I38 - Endocarditis, valve unspecified Status: Acute (3) Sepsis Code(s): A41.9 - Sepsis, unspecified organism Status: Acute Qualifiers: Sepsis type: sepsis due to unspecified organism Qualified Code(s): A41.9 - Sepsis, unspecified organism (4) Hyponatremia Code(s): E87.1 - Hypo-osmolality and hyponatremia Status: Acute - Plan Patient in acute renal failure creatinine remain elevated. Hemodialysis started , Dialysis Monday and Monday Patient has endocarditis mitral valve involvement and septic emboli Patient not feeling well ID following Ancef antibiotics, C. difficile reordered Anemia start Procrit with dialysis
--- NOTE | 2018-05-23 17:49 | P.PNID ---
Subjective Remarks: afebrile WBC up to 24 K co diarrhea, 2 watery BMs today c/o pain severe lower back pain on the R and abdominal pain cont on HD Antibiotics: ancef Past Medical History: IVDU Allergies/Adverse Reactions: Allergies No Known Allergies Allergy (Unknown, Uncoded 07/13/17 00:28) Objective Vital Signs 05/22/18 19:28 05/22/18 20:00 05/23/18 00:00 Temperature 99.2 F 99.3 F Pulse Rate 108 H 106 H Respiratory Rate 21 21 Blood Pressure 129/70 130/70 Pulse Oximetry 97 92 L 93 L 05/23/18 04:00 05/23/18 08:00 05/23/18 08:29 Temperature 98.8 F 98.6 F Pulse Rate 103 H 114 H Respiratory Rate 19 16 Blood Pressure 142/68 H 151/88 H Pulse Oximetry 92 L 95 93 L 05/23/18 12:00 Temperature 98.0 F Pulse Rate 116 H Respiratory Rate 16 Blood Pressure 145/90 H Pulse Oximetry 95 Intake & Output 05/22/18 05/23/18 05/23/18 18:59 06:59 18:59 Intake Total 1022 / 1022 Output Total 3725 / 3725 400 / 400 Balance -3725 / -3725 622 / 622 Intake: IV 100 / 100 Ancef Inj 1,000 MG In NS Inj 100 / 100 100 ML @ 200 mls/hr IV.SIG Q24H [facility] Rx#:[id number] Oral 922 / 922 Output: Urine 225 / 225 400 / 400 Hemodialysis Amount 3500 / 3500 Other: Date of Last Bowel Movement 05/22/18 05/20/18 13:40 Blood - Peripheral Aerobic Blood Culture - Preliminary No growth in 3 days 05/20/18 13:40 Blood - Peripheral Anaerobic Blood Culture - Preliminary No growth in 3 days 05/20/18 13:50 Blood - Peripheral Aerobic Blood Culture - Preliminary No growth in 3 days 05/20/18 13:50 Blood - Peripheral Anaerobic Blood Culture - Preliminary No growth in 3 days 05/21/18 01:00 Clean Catch Urine Urine Culture - Final No growth in 48 hours Lab - Hematology Results 05/23/18 04:33 WBC 24.5 H RBC 2.75 L Hgb 7.6 L Hct 23.3 L MCV 84.6 MCH 27.8 MCHC 32.9 RDW 15.9 Plt Count 639 H D MPV 7.7 Prelim Diff (Auto) Slide review pending Neut % (Auto) 75.0 H Lymph % (Auto) 8.0 L Bailey % (Auto) 13.2 H Eos % (Auto) 3.3 Baso % (Auto) 0.5 Neut # (Auto) 18.4 H Lymph # (Auto) 1.9 Bailey # (Auto) 3.2 H Eos # (Auto) 0.8 H Baso # (Auto) 0.1 WBC Differential . Diff Scan Auto diff confirmed Differential Comment . Platelet Estimate High H Platelet Morphology Normal Lab - Chemistry Results 05/21/18 05/22/18 05/22/18 23:49 11:23 11:25 Sodium Potassium Chloride Carbon Dioxide Anion Gap BUN Creatinine Estimated GFR POC Glucose 108 129 H 109 Random Glucose Calcium 05/22/18 05/23/18 05/23/18 16:57 00:59 04:33 Sodium 131 L Potassium 3.5 Chloride 93 L Carbon Dioxide 28.3 Anion Gap 10 BUN 39 H Creatinine 3.17 H Estimated GFR 22 L POC Glucose 119 H 155 H Random Glucose 97 Calcium 7.7 L 05/23/18 05/23/18 12:24 17:17 Sodium Potassium Chloride Carbon Dioxide Anion Gap BUN Creatinine Estimated GFR POC Glucose 121 H 101 Random Glucose Calcium Imaging: ITS Impressions Chest CT 04/30/18 00:00 CONCLUSION: 1. Parenchymal process bilaterally most likely inflammatory and pneumonia. Abdomen/Pelvis CT 04/30/18 08:48 CONCLUSION: 1. 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 2. Haziness in the anterior margins of the perinephric space at the junction of the spleen possibly inflammatory process of uncertain etiology. Head MRI 05/01/18 00:00 CONCLUSION: 1. Multifocal bilateral punctate infarcts, suspicious for embolic disease. 2. No midline shift or mass effect. Lumbar Spine MRI 05/06/18 00:00 CONCLUSION: 1. Large posterior subcutaneous fluid collection with enhancement. This could represent a seroma or abscess. 2. No evidence of osteomyelitis or discitis. Thoracic Spine MRI 05/06/18 00:00 CONCLUSION: 1. Negative thoracic MRI with no evidence of osteomyelitis or discitis. 2. Please see lumbar spine MRI for further details on findings in this region. Head CT 05/06/18 15:42 CONCLUSION: 1. No acute hemorrhage or mass effect. 2. The small bilateral known punctate infarcts seen on the MRI are not distinctly visualized. 3. Mucosal thickening in the ethmoidal air cells, sphenoid sinus and both maxillary sinuses. Abdomen/Bladder Ultrasound 05/08/18 00:00 CONCLUSION: 1. Trace perinephric fluid surrounding the right kidney. 2. Small right pleural effusion. 3. Otherwise normal sonographic appearance of the kidneys without evidence of hydronephrosis. Chest X-Ray 05/12/18 05:00 CONCLUSION: 1. Stable tubes and lines, as above. 2. Significantly improved diffuse patchy bilateral interstitial and alveolar opacities. Physical Exam: GENERAL: NAD SKIN: Warm and dry. evolving extensive petechial and Janeway lesions HEAD: Atraumatic. Normocephalic. EYES: Pupils equal and round. No scleral icterus. No injection or drainage. evolvinhg conjunctival hmrgs NECK: supple CARDIOVASCULAR: Regular rate and rhythm. + systolic murmur 2/6 RESPIRATORY: No accessory muscle use. Clear to auscultation. Breath sounds equal bilaterally. GASTROINTESTINAL: Abdomen soft, very tender RLQ/LLQ, nmoderately distended. Hepatic and splenic margins not palpable. MUSCULOSKELETAL: Extremities without clubbing, cyanosis, or edema. No obvious deformities. 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 Soft tissue abscess L area - not present on US PNA, H flu: clincially resolved Diarrhea, abx associated, C.diff negative 05/15 Persistent diarrhea, abd pain Persistent fever worsening leukocytosis - cont cefazoline adjusted renally anticipate 6 weeks from 1st negative blood clx unless metastatic infections will require longer tx duration (Stop date Jun 06) - rechk stool for c.diff monitor WBC, fever will repeat MRI L CT A/P w/o IV contrast dw Dr Childress
[2018-05-23] MEDS ORDERED: Diatrizoate Meglum/Diatrizoate Sod Liq 9 ML UDC PO ONE (19:30)
--- NOTE | 2018-05-23 23:25 | CT ---
EXAM DATE: 05/23/2018 8:28 PM EDT AGE/SEX: 38 years / Male INDICATIONS: Right side abdominal pain, diarrhea. CLINICAL DATA: This is the patient's initial encounter. Patient reports that signs and symptoms have been present for 1 day and indicates a pain score of 10/10. MEDICAL/SURGICAL HISTORY: Hepatitis C. IV Drug Abuse. None. RADIATION DOSE: 15.34 CTDI (mGy) COMPARISON: [facility] – [place], CT ABDOMEN & PELVIS W CONTRAST, 04/30/2018. . TECHNIQUE: Multiple contiguous axial images were obtained through the abdomen. Images were obtained using multiple row detector helical technique. Using automated exposure control and adjustment of the mA and/or kV according to patient size, radiation dose was kept as low as reasonably achievable to o btain optimal diagnostic quality images. DICOM format image data is available electronically for rev iew and comparison. FINDINGS: Lower Lungs: Moderate-sized area of left lower lobe atelectasis. Small pericardial effusion. Liver: The liver has a homogeneous density without space-occupying lesion. There is no dilation of th e biliary tree. Spleen: Previously identified anterior splenic infarct is again seen. No significant interval change . Pancreas: Unremarkable without mass or calcification. Kidneys: Normal in size and shape. No evidence of mass or hydronephrosis. Extremity again noted bilaterally. Adrenal Glands: Unremarkable. Aorta: The aorta and proximal iliac vessels are grossly unremarkable without aneurysmal dilation. Bowel/Mesentery: No evidence of bowel dilatation. No free air or free fluid. Appendix not identified . Abdominal Wall: Mild superficial abdominal wall soft tissue edema. Retroperitoneum: No evidence of adenopathy in the retrocrural, para-aortic, or deep pelvic regions. Bladder: Contours are smooth. Reproductive Organs: No abnormal masses or calcifications seen. Inguinal: The inguinal region is unremarkable without evidence of adenopathy. Bony Structures: Unremarkable. CONCLUSION: 1. New moderate-sized area of left lower lobe atelectasis. 2. New small pericardial effusion. 3. New mild superficial soft tissue edema of the lateral anterior abdominal wall bilaterally. 4. Splenic infarct again noted. 5. Perinephric stranding again noted bilaterally. Electronically signed by: Anthony Jose MD 05/23/2018 11:24 PM EDT
[2018-05-24] MEDS: Oral Hygiene Kit OROPHARYNG SCH ×5 (00:43→23:35)
[2018-05-24] MEDS: Insulin NovoLOG Aspart Correctional Sugar Inj SQ SCH ×5 (00:43→23:34)
[2018-05-24] MEDS: Carboxymethylcellulose 0.5% Opth Drops 15 ML Bottle EACH EYE SCH ×4 (04:38→21:41)
[2018-05-24 07:49] LABS: Baso # (Auto) 0.1 th/mm3 (0.0-0.2); Baso % (Auto) 0.4 % (0.0-2.0); Eos % (Auto) 3.8 % (0.0-4.0); Hematocrit 23.5 % (39.0-51.0); Hemoglobin 7.8 gm/dL (13.0-17.0); Lymph # (Auto) 1.6 th/mm3 (1.0-4.8); Lymph % (Auto) 6.3 % (9.0-44.0); Mean Corpuscular HGB Conc 33.1 % (32.0-36.0); Mean Corpuscular Hemoglobin 27.9 pg (27.0-34.0); Mean Corpuscular Volume 84.5 fL (80.0-100.0); Mean Platelet Volume 7.8 fL (7.0-11.0); Mono # (Auto) 2.7 th/mm3 (0.0-0.9); Mono % (Auto) 10.3 % (0.0-8.0); Neut # (Auto) 20.4 th/mm3 (1.8-7.7); Neut % (Auto) 79.2 % (16.0-70.0); Platelet Count 753 th/mm3 (150-450); Red Blood Count 2.78 mil/mm3 (4.50-5.90); Red Cell Distribution Width 16.3 % (11.6-17.2); White Blood Count 25.8 th/mm3 (4.0-11.0)
[2018-05-24] MEDS: Chlorhexidine 0.12% Oral Kit 15 ML UDC OROPHARYNG SCH ×2 (08:00→20:47)
[2018-05-24 08:45] LABS: Platelet Morphology Normal (Normal)
[2018-05-24] MEDS: Heparin 10,000 UNITS/10 ML Vial (for IV use) OTHER PRN (10:21)
--- NOTE | 2018-05-24 11:33 | P.PNIM ---
Subjective Interval history: in no acute distress. having his HD. no fever. still with some pain to the lower back. MRI lumbar spine pending. Physical Exam Vital signs: Vital Signs 05/23/18 12:00 05/23/18 16:00 05/23/18 20:00 Temperature 98.0 F 98.0 F 97.2 F L Pulse Rate 116 H 102 H 106 H Respiratory Rate 16 16 20 Blood Pressure 145/90 H 140/90 132/87 Pulse Oximetry 95 95 93 L 05/23/18 20:01 05/24/18 00:00 05/24/18 04:00 Temperature 98.4 F 98.4 F Pulse Rate 107 H 106 H Respiratory Rate 20 22 Blood Pressure 159/92 H 155/96 H Pulse Oximetry 97 95 95 05/24/18 08:00 05/24/18 09:25 Temperature 99.0 F Pulse Rate 118 H Respiratory Rate 20 Blood Pressure 159/87 H Pulse Oximetry 95 95 Intake & Output 05/23/18 05/24/18 05/24/18 18:59 06:59 18:59 Intake Total 480 / 480 580 / 580 Output Total 275 / 275 Balance 205 / 205 580 / 580 Intake: IV 100 / 100 Ancef Inj 1,000 MG In NS Inj 100 / 100 100 ML @ 200 mls/hr IV.SIG Q24H STEFFANIE Rx#:[id number] Oral 480 / 480 480 / 480 Output: Urine 275 / 275 Other: # Incontinent Voids 3 Date of Last Bowel Movement 05/22/18 - Constitutional no acute distress - Routine Respiratory Exam Present: CTA bilaterally - Routine Cardiovascular Exam Present: RRR - Routine Abdominal Exam Present: soft - Routine Extremities Exam Comments: no pedal edema. - Routine Neurological Exam Present: alert, oriented X3 - Urinary Catheter Management Condom Cath placed during this visit: no Indwelling Urethral Catheter Cath placed during this visit: yes, but has since been removed by the nurse Reason for continuing: Decision to DC catheter Insertion date: 05/06/18 Insertion time: 16:40 Removal date: 05/14/18 Removal time: 08:00 Results - Labs CBC & Chem 7: 05/24/18 06:10 05/23/18 04:33 Laboratory Results - last 24 hr 05/23/18 05/23/18 05/23/18 12:24 17:17 23:57 WBC RBC Hgb Hct MCV MCH MCHC RDW Plt Count MPV Prelim Diff (Auto) Neut % (Auto) Lymph % (Auto) [place] % (Auto) Eos % (Auto) Baso % (Auto) Neut # (Auto) Lymph # (Auto) [place] # (Auto) Eos # (Auto) Baso # (Auto) WBC Differential Diff Scan Differential Comment Platelet Estimate Platelet Morphology POC Glucose 121 H 101 120 H 05/24/18 05/24/18 05:58 06:10 WBC 25.8 H RBC 2.78 L Hgb 7.8 L Hct 23.5 L MCV 84.5 MCH 27.9 MCHC 33.1 RDW 16.3 Plt Count 753 H MPV 7.8 Prelim Diff (Auto) Slide review pending Neut % (Auto) 79.2 H Lymph % (Auto) 6.3 L [place] % (Auto) 10.3 H Eos % (Auto) 3.8 Baso % (Auto) 0.4 Neut # (Auto) 20.4 H Lymph # (Auto) 1.6 [place] # (Auto) 2.7 H Eos # (Auto) 1.0 H Baso # (Auto) 0.1 WBC Differential . Diff Scan Auto diff confirmed Differential Comment . Platelet Estimate High H Platelet Morphology Normal POC Glucose 101 Microbiology 05/20/18 13:40 Blood - Peripheral Aerobic Blood Culture - Preliminary No growth in 4 days 05/20/18 13:40 Blood - Peripheral Anaerobic Blood Culture - Preliminary No growth in 4 days 05/20/18 13:50 Blood - Peripheral Aerobic Blood Culture - Preliminary No growth in 4 days 05/20/18 13:50 Blood - Peripheral Anaerobic Blood Culture - Preliminary No growth in 4 days 05/21/18 01:00 Clean Catch Urine Urine Culture - Final No growth in 48 hours - Imaging Impressions Abdomen/Pelvis CT 05/23/18 00:00 CONCLUSION: 1. New moderate-sized area of left lower lobe atelectasis. 2. New small pericardial effusion. 3. New mild superficial soft tissue edema of the lateral anterior abdominal wall bilaterally. 4. Splenic infarct again noted. 5. Perinephric stranding again noted bilaterally. - Procedures AURELIA Assessment and Plan - Plan Severe sepsis - MSSA infective endocarditis Haemophilus influenza pneumonia. New fever ? Drug Fever?- temps are better. worsening leukocytosis -On IV Cefazolin, ON Gentamicin with HD -Blood culture with GPC 4 staph aureus -Temps better- Cerebryx was DC 05/20- continue to montior Temps. -repeat C-diff and repeated MRI lumbar spine pending. -ID following and previously d/w . 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 -Neurology consult for embolic bilateral infarcts. Dr. Mike. Continue aspirin -Watch closely for drug withdrawal -Supplement multivitamin thiamine -PT OOB Respiratory insufficiency-resolved Pneumonia/septic emboli -DuoNeb every 6 hours as needed -Sputum culture if available -CT chest shows bilateral infiltrates -cont antibiotics. ID following. Lactic acidosis NSTEMI Infective endocarditis Persistent tacjhycardia Hypertension -AURELIA shows large mitral valve vegetation (05/03) -Continue aspirin - DC'ed Coreg- changed to Lopressor 25 mg po q 8 for better rate and BP control - Avoid statins at this time due to hep C -Elevated troponin may be secondary to coronary artery septic emboli Hepatitis C -O/p f/u -Continue regular diet. acute kidney injury -Nephrology consulted -started on HD; HD per nephrology. -will monitor the renal function. Anemia- of chronic disease on Epogen with HD- will monitor. Pain- history of IVDU - started on methadone 5 mg daily- PROPH: -Bilateral lower extremity SCDs. Discharge Planning: - Self-pay Continues on IV antibiotics. difficult dc. Discharge Planning: on IV antibiotics. with worsening leukocytosis. not ready for discharge.
[2018-05-24] MEDS: Senna/Docusate Sodium 8.6/50 MG Tablet PO SCH ×2 (14:23→20:50)
[2018-05-24] MEDS: Metoprolol Tartrate 25 MG Tablet PO SCH ×3 (14:24→17:16)
[2018-05-24] MEDS: Methadone 10 MG Tablet PO SCH (14:24)
--- NOTE | 2018-05-24 14:54 | MR ---
EXAM DATE: 05/24/2018 8:15 AM EDT AGE/SEX: 38 years / Male INDICATIONS: Pain. CLINICAL DATA: This is the patient's initial encounter. Patient reports that signs and symptoms have been present for 1 day and indicates a pain score of 7/10. MEDICAL/SURGICAL HISTORY: Hypertension. Hepatitis C. Endocarditis, coronary artery disease and IV drug abuse. None. COMPARISON: [facility] [place], MR LUMBAR SPINE W & W/O CONTRAST, 05/05/2018. . TECHNIQUE: Multiplanar, multisequence MRI of the lumbar spine was performed without contrast. Patie nt was scanned in a sitting position; neutral, flexion, and extension scans were performed in the sa gittal plane. FINDINGS: Sagittal T1 and T2-weighted imaging demonstrates adequate alignment of the lumbar vertebral bodies. T he disc appear well hydrated throughout. No abnormal marrow signal is seen within the vertebral edgar s. The cord terminates in its appropriate location. The examination does continue to demonstrate a fluid collection in the posterior subcutaneous tissues of the back extending from T12 down to L4. This measures approximately 1.4 cm in thickness. It is si gnificantly smaller in size than seen on previous examination. The paraspinous soft tissues are intact. Axial imaging: T12-L1: The thecal sac has a normal diameter. No evidence of disc bulge or protrusion. The neural foramina are patent bilaterally. L1-L2: The thecal sac has a normal diameter. No evidence of disc bulge or protrusion. The neural foramina are patent bilaterally. L2-L3: The thecal sac has a normal diameter. No evidence of disc bulge or protrusion. The neural foramina are patent bilaterally. L3-L4: The thecal sac has a normal diameter. No evidence of disc bulge or protrusion. The neural foramina are patent bilaterally. L4-L5: The thecal sac has a normal diameter. No evidence of disc bulge or protrusion. The neural foramina are patent bilaterally. L5-S1: The thecal sac has a normal diameter. No evidence of disc bulge or protrusion. The neural foramina are patent bilaterally. CONCLUSION: 1. Subcutaneous fluid as described above. This is decreased since prior of 05/06/2018. 2. No significant disc protrusion identified. No abnormal marrow signal seen within the vertebral bernabe dies. Electronically signed by: Vitaly Lentz MD 05/24/2018 2:53 PM EDT
--- NOTE | 2018-05-24 16:39 | P.PNNP ---
Subjective Interval history: Patient seen during dialysis Physical Exam Vital signs: Vital Signs 05/23/18 20:00 05/23/18 20:01 05/24/18 00:00 Temperature 97.2 F L 98.4 F Pulse Rate 106 H 107 H Respiratory Rate 20 20 Blood Pressure 132/87 159/92 H Pulse Oximetry 93 L 97 95 05/24/18 04:00 05/24/18 08:00 05/24/18 09:25 Temperature 98.4 F 99.0 F Pulse Rate 106 H 118 H Respiratory Rate 22 20 Blood Pressure 155/96 H 159/87 H Pulse Oximetry 95 95 95 05/24/18 12:00 Temperature 98.2 F Pulse Rate 122 H Respiratory Rate 20 Blood Pressure 155/97 H Pulse Oximetry 94 L Intake & Output 05/23/18 05/24/18 05/24/18 18:59 06:59 18:59 Intake Total 480 / 480 580 / 580 480 / 480 Output Total 275 / 275 3500 / 3500 Balance 205 / 205 580 / 580 -3020 / -3020 Intake: IV 100 / 100 Ancef Inj 1,000 MG In NS Inj 100 / 100 100 ML @ 200 mls/hr IV.SIG Q24H STEFFANIE Rx#:[id number] Oral 480 / 480 480 / 480 480 / 480 Output: Urine 275 / 275 500 / 500 Hemodialysis Amount 3000 / 3000 Other: # Incontinent Voids 3 Date of Last Bowel Movement 05/22/18 Narrative: GENERAL: Awake, alert. Oriented 3. interactive, speech clear SKIN: Warm and dry. HEAD: Normocephalic. EYES: No scleral icterus. No injection or drainage. NECK: Supple, trachea midline. No JVD. vasc cath in place right neck CARDIOVASCULAR:Tachycardic and rhythm without murmurs, gallops, or rubs. RESPIRATORY: Breath sounds equal bilaterally. No accessory muscle use. GASTROINTESTINAL: Abdomen soft, nontender MUSCULOSKELETAL: No cyanosis, or edema. neuro exam- non focal - Urinary Catheter Management Condom Cath placed during this visit: no Indwelling Urethral Catheter Cath placed during this visit: yes, but has since been removed by the nurse Reason for continuing: Decision to DC catheter Insertion date: 05/06/18 Insertion time: 16:40 Removal date: 05/14/18 Removal time: 08:00 Assessment and Plan - Assessment (1) Altered mental status Code(s): R41.82 - Altered mental status, unspecified Status: Acute Plan: Improved, monitor. (2) Endocarditis Code(s): I38 - Endocarditis, valve unspecified Status: Acute (3) Sepsis Code(s): A41.9 - Sepsis, unspecified organism Status: Acute Qualifiers: Sepsis type: sepsis due to unspecified organism Qualified Code(s): A41.9 - Sepsis, unspecified organism (4) Hyponatremia Code(s): E87.1 - Hypo-osmolality and hyponatremia Status: Acute - Plan Patient in acute renal failure creatinine remain elevated. Hemodialysis started , Dialysis Monday and Monday Patient has endocarditis mitral valve involvement and septic emboli Seen during hemodialysis 3 L of ultrafiltration Continue with antibiotics Anemia start Procrit with dialysis
--- NOTE | 2018-05-24 16:57 | US ---
EXAM DATE: 05/24/2018 12:00 AM EDT AGE/SEX: 38 years / Male INDICATIONS: Left arm swelling. CLINICAL DATA: This is the patient's initial encounter. Patient reports that signs and symptoms have been present for 1 day and indicates a pain score of 3/10. MEDICAL/SURGICAL HISTORY: Hepatitis C. Heroine abuse. None. COMPARISON: No prior exams available for comparison. FINDINGS: There is occlusive superficial thrombus in the mid and distal portions of the cephalic vei n. The internal jugular, subclavian, axillary, brachial and basilic veins are patent. Other: None. CONCLUSION: 1. Occlusive superficial thrombus in the mid and distal portions of the cephalic vein. Deep venous s ystem is patent. Electronically signed by: Jeferson Ram MD 05/24/2018 4:56 PM EDT
[2018-05-25] MEDS: Oral Hygiene Kit OROPHARYNG SCH ×4 (03:30→23:02)
[2018-05-25] MEDS: Carboxymethylcellulose 0.5% Opth Drops 15 ML Bottle EACH EYE SCH ×4 (03:30→21:00)
[2018-05-25] MEDS: Insulin NovoLOG Aspart Correctional Sugar Inj SQ SCH ×4 (05:50→23:01)
[2018-05-25] MEDS: Chlorhexidine 0.12% Oral Kit 15 ML UDC OROPHARYNG SCH (07:27)
[2018-05-25 08:10] LABS: Baso # (Auto) 0.2 th/mm3 (0.0-0.2); Eos # (Auto) 0.8 th/mm3 (0.0-0.4); Eos % (Auto) 4.1 % (0.0-4.0); Lymph # (Auto) 1.3 th/mm3 (1.0-4.8); Lymph % (Auto) 6.4 % (9.0-44.0); Mean Corpuscular HGB Conc 33.1 % (32.0-36.0); Mean Corpuscular Hemoglobin 28.2 pg (27.0-34.0); Mean Corpuscular Volume 85.1 fL (80.0-100.0); Mean Platelet Volume 7.7 fL (7.0-11.0); Mono # (Auto) 2.4 th/mm3 (0.0-0.9); Mono % (Auto) 12.1 % (0.0-8.0); Neut # (Auto) 15.2 th/mm3 (1.8-7.7); Neut % (Auto) 76.4 % (16.0-70.0); Platelet Count 649 th/mm3 (150-450); Red Blood Count 2.33 mil/mm3 (4.50-5.90); Red Cell Distribution Width 16.1 % (11.6-17.2); White Blood Count 19.9 th/mm3 (4.0-11.0)
[2018-05-25 08:17] LABS: Hemoglobin 6.6 gm/dL (13.0-17.0)
[2018-05-25 08:18] LABS: Hematocrit 19.8 % (39.0-51.0)
[2018-05-25 08:31] LABS: Calcium 7.7 mg/dL (8.5-10.1); Potassium 3.7 meq/L (3.5-5.1)
[2018-05-25] MEDS: Senna/Docusate Sodium 8.6/50 MG Tablet PO SCH ×2 (08:49→20:34)
[2018-05-25] MEDS: Metoprolol Tartrate 25 MG Tablet PO SCH ×3 (08:49→17:56)
[2018-05-25] MEDS: Methadone 10 MG Tablet PO SCH (08:50)
--- NOTE | 2018-05-25 09:15 | P.PNIM ---
Subjective Interval history: f/u; endocarditis/BRENDA in no acute distress. T max 101. looks and feels better today; pain has subsided. no chest pain or sob. Physical Exam Vital signs: Vital Signs 05/24/18 09:25 05/24/18 12:00 05/24/18 16:00 Temperature 98.2 F 101.1 F H Pulse Rate 116 H 120 H Respiratory Rate 16 20 Blood Pressure 155/97 H 135/81 Pulse Oximetry 95 94 L 95 05/24/18 20:00 05/25/18 00:00 05/25/18 03:29 Temperature 98.7 F 98.7 F Pulse Rate 93 H 95 H Respiratory Rate 20 20 18 Blood Pressure 119/63 150/88 H Pulse Oximetry 97 97 05/25/18 04:00 05/25/18 08:00 Temperature 98.0 F 98.0 F Pulse Rate 112 H 104 H Respiratory Rate 20 22 Blood Pressure 154/90 H 157/101 H Pulse Oximetry 96 97 Intake & Output 05/24/18 05/25/18 05/25/18 18:59 06:59 18:59 Intake Total 1080 / 1080 820 / 820 Output Total 3500 / 3500 550 / 550 Balance -2420 / -2420 270 / 270 Weight 85.7 kg Intake: IV 100 / 100 Ancef Inj 1,000 MG In NS Inj 100 / 100 100 ML @ 200 mls/hr IV.SIG Q24H STEFFANIE Rx#:[id number] Oral 1080 / 1080 720 / 720 Output: Urine 500 / 500 550 / 550 Hemodialysis Amount 3000 / 3000 Other: Date of Last Bowel Movement 05/24/18 # Bowel Movements 1 - Constitutional no acute distress - Routine Respiratory Exam Present: CTA bilaterally - Routine Cardiovascular Exam Present: RRR - Routine Abdominal Exam Present: soft - Routine Extremities Exam Comments: no pedal edema. - Routine Neurological Exam Present: alert, oriented X3 - Urinary Catheter Management Condom Cath placed during this visit: no Indwelling Urethral Catheter Cath placed during this visit: yes, but has since been removed by the nurse Reason for continuing: Decision to DC catheter Insertion date: 05/06/18 Insertion time: 16:40 Removal date: 05/14/18 Removal time: 08:00 Results - Labs CBC & Chem 7: 05/25/18 06:53 05/25/18 06:53 Laboratory Results - last 24 hr 05/24/18 05/25/18 05/25/18 18:31 05:15 06:53 WBC 19.9 H RBC 2.33 L Hgb 6.6 L* Hct 19.8 L* MCV 85.1 MCH 28.2 MCHC 33.1 RDW 16.1 Plt Count 649 H MPV 7.7 Prelim Diff (Auto) Slide review pending Neut % (Auto) 76.4 H Lymph % (Auto) 6.4 L [place] % (Auto) 12.1 H Eos % (Auto) 4.1 H Baso % (Auto) 1.0 Neut # (Auto) 15.2 H Lymph # (Auto) 1.3 [place] # (Auto) 2.4 H Eos # (Auto) 0.8 H Baso # (Auto) 0.2 Differential Comment . Sodium Potassium Chloride Carbon Dioxide Anion Gap BUN Creatinine Estimated GFR POC Glucose 102 Random Glucose Calcium Stl C.difficile Tox PCR Negative St C. diff Tox Epid 027 Negative 05/25/18 06:53 WBC RBC Hgb Hct MCV MCH MCHC RDW Plt Count MPV Prelim Diff (Auto) Neut % (Auto) Lymph % (Auto) [place] % (Auto) Eos % (Auto) Baso % (Auto) Neut # (Auto) Lymph # (Auto) [place] # (Auto) Eos # (Auto) Baso # (Auto) Differential Comment Sodium 133 L Potassium 3.7 Chloride 94 L Carbon Dioxide 29.0 Anion Gap 10 BUN 46 H Creatinine 2.56 H Estimated GFR 28 L POC Glucose Random Glucose 87 Calcium 7.7 L Stl C.difficile Tox PCR St C. diff Tox Epid 027 Microbiology 05/20/18 13:40 Blood - Peripheral Aerobic Blood Culture - Preliminary No growth in 4 days 05/20/18 13:40 Blood - Peripheral Anaerobic Blood Culture - Preliminary No growth in 4 days 05/20/18 13:50 Blood - Peripheral Aerobic Blood Culture - Preliminary No growth in 4 days 05/20/18 13:50 Blood - Peripheral Anaerobic Blood Culture - Preliminary No growth in 4 days - Imaging Impressions Lumbar Spine MRI 05/24/18 00:00 CONCLUSION: 1. Subcutaneous fluid as described above. This is decreased since prior of 04/2018. 2. No significant disc protrusion identified. No abnormal marrow signal seen within the vertebral bodies. Venous Doppler Study 05/24/18 00:00 CONCLUSION: 1. Occlusive superficial thrombus in the mid and distal portions of the cephalic vein. Deep venous system is patent. - Procedures AURELIA Assessment and Plan - Plan Severe sepsis - MSSA infective endocarditis Haemophilus influenza pneumonia. New fever ? Drug Fever?- temps are better. leukocytosis- improving. diarrhea -On IV Cefazolin, ON Gentamicin with HD -Blood culture with GPC 4 staph aureus -repeat C-diff negative and repeated MRI lumbar spine with decreased size of posterior fluid collection -venous doppler of the left upper extremity with superficial phlebitis -repeat stool for c-diff negative. -ID following and previously d/w . 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 -Neurology consult for embolic bilateral infarcts. Dr. Mike. Continue aspirin -Supplement multivitamin thiamine -PT OOB Respiratory insufficiency-resolved Pneumonia/septic emboli -DuoNeb every 6 hours as needed -Sputum culture if available -CT chest shows bilateral infiltrates -cont antibiotics. ID following. Lactic acidosis NSTEMI Infective endocarditis Persistent tacjhycardia Hypertension -AURELIA shows large mitral valve vegetation (05/03) -Continue aspirin - DC'ed Coreg- changed to Lopressor 25 mg po q 8 for better rate and BP control - Avoid statins at this time due to hep C -Elevated troponin may be secondary to coronary artery septic emboli Hepatitis C -O/p f/u -Continue regular diet. acute kidney injury -Nephrology consulted -started on HD; HD per nephrology. -will monitor the renal function. Anemia- of chronic disease- now with dropped H/H will transfuse with one unit of PRBC slowly today- on Epogen with HD- will monitor. Pain- history of IVDU - started on methadone 5 mg daily- PROPH: -Bilateral lower extremity SCDs. Discharge Planning: - Self-pay Continues on IV antibiotics. difficult dc. Discharge Planning: on IV antibiotics. with worsening leukocytosis. not ready for discharge.
[2018-05-25 09:18] LABS: Eosinophils 3 % (0-4); Lymphocytes 8 % (9-44); Monocytes 12 % (0-8); Myelocytes 2 % (0-0); Platelet Morphology Normal (Normal)
--- NOTE | 2018-05-25 10:31 | P.PNNP ---
Physical Exam Vital signs: Vital Signs 05/24/18 12:00 05/24/18 16:00 05/24/18 20:00 Temperature 98.2 F 101.1 F H 98.7 F Pulse Rate 116 H 120 H 93 H Respiratory Rate 16 20 20 Blood Pressure 155/97 H 135/81 119/63 Pulse Oximetry 94 L 95 97 05/25/18 00:00 05/25/18 03:29 05/25/18 04:00 Temperature 98.7 F 98.0 F Pulse Rate 95 H 112 H Respiratory Rate 20 18 20 Blood Pressure 150/88 H 154/90 H Pulse Oximetry 97 96 05/25/18 08:00 Temperature 98.0 F Pulse Rate 104 H Respiratory Rate 22 Blood Pressure 157/101 H Pulse Oximetry 97 Intake & Output 05/24/18 05/25/18 05/25/18 18:59 06:59 18:59 Intake Total 1080 / 1080 820 / 820 Output Total 3500 / 3500 550 / 550 Balance -2420 / -2420 270 / 270 Weight 85.7 kg Intake: IV 100 / 100 Ancef Inj 1,000 MG In NS Inj 100 / 100 100 ML @ 200 mls/hr IV.SIG Q24H STEFFANIE Rx#:[id number] Oral 1080 / 1080 720 / 720 Output: Urine 500 / 500 550 / 550 Hemodialysis Amount 3000 / 3000 Other: Date of Last Bowel Movement 05/24/18 # Bowel Movements 1 Narrative: GENERAL: Awake, alert. Oriented 3. interactive, speech clear SKIN: Warm and dry. HEAD: Normocephalic. EYES: No scleral icterus. No injection or drainage. NECK: Supple, trachea midline. No JVD. vasc cath in place right neck CARDIOVASCULAR:Tachycardic and rhythm without murmurs, gallops, or rubs. RESPIRATORY: Breath sounds equal bilaterally. No accessory muscle use. GASTROINTESTINAL: Abdomen soft, nontender MUSCULOSKELETAL: No cyanosis, or edema. neuro exam- non focal - Urinary Catheter Management Condom Cath placed during this visit: no Indwelling Urethral Catheter Cath placed during this visit: yes, but has since been removed by the nurse Reason for continuing: Decision to DC catheter Insertion date: 05/06/18 Insertion time: 16:40 Removal date: 05/14/18 Removal time: 08:00 Assessment and Plan - Assessment (1) Altered mental status Code(s): R41.82 - Altered mental status, unspecified Status: Acute Plan: Improved, monitor. (2) Endocarditis Code(s): I38 - Endocarditis, valve unspecified Status: Acute (3) Sepsis Code(s): A41.9 - Sepsis, unspecified organism Status: Acute Qualifiers: Sepsis type: sepsis due to unspecified organism Qualified Code(s): A41.9 - Sepsis, unspecified organism (4) Hyponatremia Code(s): E87.1 - Hypo-osmolality and hyponatremia Status: Acute - Plan Patient in acute renal failure creatinine remain elevated. Hemodialysis started , Dialysis Monday and Monday Patient has endocarditis mitral valve involvement and septic emboli Hemodialysis as needed creatinine decline after dialysis Continue with antibiotics Anemia start Procrit with dialysis
[2018-05-25] MEDS: Sodium Chlor 0.9% Inj 250 ML IV.SIG SCH ×2 (13:30→19:00)
[2018-05-25] MEDS ORDERED: Sodium Chlor 0.9% Inj 250 ML IV.SIG ONE (14:00)
[2018-05-26] MEDS: Carboxymethylcellulose 0.5% Opth Drops 15 ML Bottle EACH EYE SCH ×4 (03:24→23:15)
[2018-05-26] MEDS: Oral Hygiene Kit OROPHARYNG SCH ×3 (03:24→15:22)
[2018-05-26] MEDS: Insulin NovoLOG Aspart Correctional Sugar Inj SQ SCH ×3 (05:27→18:25)
[2018-05-26 05:40] LABS: Baso # (Auto) 0.1 th/mm3 (0.0-0.2); Baso % (Auto) 0.7 % (0.0-2.0); Eos # (Auto) 0.8 th/mm3 (0.0-0.4); Eos % (Auto) 3.8 % (0.0-4.0); Hematocrit 22.6 % (39.0-51.0); Hemoglobin 7.5 gm/dL (13.0-17.0); Lymph # (Auto) 1.4 th/mm3 (1.0-4.8); Lymph % (Auto) 6.9 % (9.0-44.0); Mean Corpuscular HGB Conc 33.3 % (32.0-36.0); Mean Corpuscular Hemoglobin 27.5 pg (27.0-34.0); Mean Corpuscular Volume 82.6 fL (80.0-100.0); Mean Platelet Volume 7.4 fL (7.0-11.0); Mono # (Auto) 2.5 th/mm3 (0.0-0.9); Neut # (Auto) 15.7 th/mm3 (1.8-7.7); Neut % (Auto) 76.6 % (16.0-70.0); Platelet Count 624 th/mm3 (150-450); Red Blood Count 2.73 mil/mm3 (4.50-5.90); Red Cell Distribution Width 15.9 % (11.6-17.2); White Blood Count 20.5 th/mm3 (4.0-11.0)
[2018-05-26 07:25] LABS: Eosinophils 1 % (0-4); Lymphocytes 8 % (9-44); Monocytes 7 % (0-8); Platelet Morphology Normal (Normal)
[2018-05-26] MEDS: Methadone 10 MG Tablet PO SCH (08:01)
[2018-05-26] MEDS: Senna/Docusate Sodium 8.6/50 MG Tablet PO SCH ×2 (08:02→20:32)
[2018-05-26] MEDS: Heparin 10,000 UNITS/10 ML Vial (for IV use) OTHER PRN (09:51)
[2018-05-26] MEDS: Metoprolol Tartrate 25 MG Tablet PO SCH ×3 (10:37→17:44)
--- NOTE | 2018-05-26 10:51 | P.PNIM ---
Subjective Interval history: in no acute distress. has some pain to lower back. no fever. has a couple of loose BM's last night. having his HD today. Physical Exam Vital signs: Vital Signs 05/25/18 12:00 05/25/18 12:55 05/25/18 16:00 Temperature 98.1 F 97.8 F Pulse Rate 110 H 106 H Respiratory Rate 22 22 Blood Pressure 157/92 H 147/92 H Pulse Oximetry 98 98 98 05/25/18 19:44 05/25/18 20:00 05/25/18 20:02 Temperature 100.2 F H 99.6 F Pulse Rate 104 H 105 H 101 H Respiratory Rate 18 18 Blood Pressure 157/99 H 153/98 H Pulse Oximetry 94 L 95 94 L 05/25/18 22:52 05/26/18 00:00 05/26/18 04:00 Temperature 98.4 F 98.4 F 98.9 F Pulse Rate 104 H 98 H 103 H Respiratory Rate 16 18 18 Blood Pressure 152/98 H 161/93 H 161/93 H Pulse Oximetry 95 95 96 05/26/18 08:00 Temperature 98.3 F Pulse Rate 99 H Respiratory Rate 22 Blood Pressure 164/99 H Pulse Oximetry 96 Intake & Output 05/25/18 05/26/18 05/26/18 18:59 06:59 18:59 Intake Total 960 / 960 100 / 100 Output Total 900 / 900 775 / 775 Balance 60 / 60 -675 / -675 Weight 85.8 kg Intake: IV 100 / 100 Ancef Inj 1,000 MG In NS Inj 100 / 100 100 ML @ 200 mls/hr IV.SIG Q24H [facility] Rx#:[id number] Oral 960 / 960 Intake (Blood Product) Amt 0 / 0 Rbc As-3 Leukoreduced Unit 0 / 0 [id number] Output: Urine 900 / 900 775 / 775 Other: Date of Last Bowel Movement 05/25/18 05/25/18 # Bowel Movements 3 - Constitutional no acute distress - Routine Respiratory Exam Present: CTA bilaterally - Routine Cardiovascular Exam Present: RRR - Routine Abdominal Exam Present: soft - Routine Extremities Exam Comments: no pedal edema. - Routine Neurological Exam Present: alert, oriented X3 - Urinary Catheter Management Condom Cath placed during this visit: no Indwelling Urethral Catheter Cath placed during this visit: yes, but has since been removed by the nurse Reason for continuing: Decision to DC catheter Insertion date: 05/06/18 Insertion time: 16:40 Removal date: 05/14/18 Removal time: 08:00 Results - Labs CBC & Chem 7: 05/26/18 05:16 05/25/18 06:53 Laboratory Results - last 24 hr 05/25/18 05/25/18 05/25/18 16:57 17:46 23:01 WBC RBC Hgb Hct MCV MCH MCHC RDW Plt Count MPV Prelim Diff (Auto) Neut % (Auto) Lymph % (Auto) [place] % (Auto) Eos % (Auto) Baso % (Auto) Neut # (Auto) Lymph # (Auto) [place] # (Auto) Eos # (Auto) Baso # (Auto) WBC Differential Seg Neuts % (Manual) Lymphocytes % (Manual) Monocytes % (Manual) Eosinophils % (Manual) Basophils % (Manual) Abs Neuts (Manual) Differential Comment Platelet Estimate Platelet Morphology POC Glucose 101 87 Blood Type B Positive Blood Type Recheck Required Antibody Screen Negative MTS Gel Crossmatch See Detail 05/26/18 05/26/18 05:16 07:42 WBC 20.5 H RBC 2.73 L Hgb 7.5 L Hct 22.6 L MCV 82.6 MCH 27.5 MCHC 33.3 RDW 15.9 Plt Count 624 H MPV 7.4 Prelim Diff (Auto) Slide review pending Neut % (Auto) 76.6 H Lymph % (Auto) 6.9 L [place] % (Auto) 12.0 H Eos % (Auto) 3.8 Baso % (Auto) 0.7 Neut # (Auto) 15.7 H Lymph # (Auto) 1.4 [place] # (Auto) 2.5 H Eos # (Auto) 0.8 H Baso # (Auto) 0.1 WBC Differential Manual diff final Seg Neuts % (Manual) 83 H Lymphocytes % (Manual) 8 L Monocytes % (Manual) 7 Eosinophils % (Manual) 1 Basophils % (Manual) 1 Abs Neuts (Manual) 17.0 H Differential Comment . Platelet Estimate High H Platelet Morphology Normal POC Glucose 98 Blood Type Blood Type Recheck Antibody Screen MTS Gel Crossmatch Microbiology 05/20/18 13:40 Blood - Peripheral Aerobic Blood Culture - Final No growth in 5 days 05/20/18 13:40 Blood - Peripheral Anaerobic Blood Culture - Final No growth in 5 days 05/20/18 13:50 Blood - Peripheral Aerobic Blood Culture - Final No growth in 5 days 05/20/18 13:50 Blood - Peripheral Anaerobic Blood Culture - Final No growth in 5 days - Procedures AURELIA Assessment and Plan - Plan Severe sepsis - MSSA infective endocarditis Haemophilus influenza pneumonia. New fever ? Drug Fever?- temps are better. leukocytosis- improving. diarrhea -On IV Cefazolin, ON Gentamicin with HD -Blood culture with GPC 4 staph aureus -repeat C-diff negative and repeated MRI lumbar spine with decreased size of posterior fluid collection -venous doppler of the left upper extremity with superficial phlebitis -repeat stool for c-diff negative. -ID following and previously d/w . 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 -Neurology consult for embolic bilateral infarcts. Dr. Mike. Continue aspirin -Supplement multivitamin thiamine -PT OOB Respiratory insufficiency-resolved Pneumonia/septic emboli -DuoNeb every 6 hours as needed -Sputum culture if available -CT chest shows bilateral infiltrates -cont antibiotics. ID following. Lactic acidosis NSTEMI Infective endocarditis Persistent tacjhycardia Hypertension -AURELIA shows large mitral valve vegetation (05/03) -Continue aspirin - DC'ed Coreg- changed to Lopressor 25 mg po q 8 for better rate and BP control - Avoid statins at this time due to hep C -Elevated troponin may be secondary to coronary artery septic emboli Hepatitis C -O/p f/u -Continue regular diet. acute kidney injury -Nephrology consulted -started on HD; HD per nephrology. -will monitor the renal function. Anemia- of chronic disease- s/p PRBC transfusion on 05/25- H/H improved after transfusion- on Epogen with HD- will monitor. continue to monitor H/H. Pain- history of IVDU - started on methadone 5 mg daily- PROPH: -Bilateral lower extremity SCDs. Discharge Planning: - Self-pay Continues on IV antibiotics. difficult dc. Discharge Planning: on IV antibiotics. with worsening leukocytosis. not ready for discharge.
--- NOTE | 2018-05-26 12:02 | P.PNNP ---
Subjective Interval history: Seen during hemodialysis tolerating well. In no acute distress. <Guera Lindo - Last Filed: 05/26/18 11:56> Physical Exam Vital signs: Vital Signs 05/25/18 12:00 05/25/18 12:55 05/25/18 16:00 Temperature 98.1 F 97.8 F Pulse Rate 110 H 106 H Respiratory Rate 22 22 Blood Pressure 157/92 H 147/92 H Pulse Oximetry 98 98 98 05/25/18 19:44 05/25/18 20:00 05/25/18 20:02 Temperature 100.2 F H 99.6 F Pulse Rate 104 H 105 H 101 H Respiratory Rate 18 18 Blood Pressure 157/99 H 153/98 H Pulse Oximetry 94 L 95 94 L 05/25/18 22:52 05/26/18 00:00 05/26/18 04:00 Temperature 98.4 F 98.4 F 98.9 F Pulse Rate 104 H 98 H 103 H Respiratory Rate 16 18 18 Blood Pressure 152/98 H 161/93 H 161/93 H Pulse Oximetry 95 95 96 05/26/18 08:00 Temperature 98.3 F Pulse Rate 99 H Respiratory Rate 22 Blood Pressure 164/99 H Pulse Oximetry 96 Intake & Output 05/25/18 05/26/18 05/26/18 18:59 06:59 18:59 Intake Total 960 / 960 100 / 100 Output Total 900 / 900 775 / 775 Balance 60 / 60 -675 / -675 Weight 85.8 kg Intake: IV 100 / 100 Ancef Inj 1,000 MG In NS Inj 100 / 100 100 ML @ 200 mls/hr IV.SIG Q24H [facility] Rx#:[id number] Oral 960 / 960 Intake (Blood Product) Amt 0 / 0 Rbc As-3 Leukoreduced Unit 0 / 0 [id number] Output: Urine 900 / 900 775 / 775 Other: Date of Last Bowel Movement 05/25/18 05/25/18 # Bowel Movements 3 Narrative: GENERAL: Awake, alert. NAD SKIN: Warm and dry. HEAD: Normocephalic. EYES: No scleral icterus. No injection or drainage. NECK: Supple, trachea midline. No JVD. vasc cath in place right neck CARDIOVASCULAR:Tachycardic and rhythm without murmurs, gallops, or rubs. RESPIRATORY: Breath sounds equal bilaterally. No accessory muscle use. GASTROINTESTINAL: Abdomen soft, nontender MUSCULOSKELETAL: No cyanosis, or edema. - Urinary Catheter Management Condom Cath placed during this visit: no Indwelling Urethral Catheter Cath placed during this visit: yes, but has since been removed by the nurse Reason for continuing: Decision to DC catheter Insertion date: 05/06/18 Insertion time: 16:40 Removal date: 05/14/18 Removal time: 08:00 <Guera Lindo - Last Filed: 05/26/18 11:56> Vital signs: Vital Signs 05/28/18 16:00 05/28/18 20:00 05/28/18 20:46 Temperature 97.9 F Pulse Rate 95 H 93 H Respiratory Rate 16 Blood Pressure 133/88 Pulse Oximetry 95 96 05/28/18 22:30 05/29/18 00:00 05/29/18 04:00 Temperature 97.2 F L Pulse Rate 95 H 89 97 H Respiratory Rate 18 Blood Pressure 129/74 Pulse Oximetry 97 05/29/18 07:42 05/29/18 08:00 05/29/18 12:00 Temperature 98.5 F 98.2 F Pulse Rate 97 H 95 H Respiratory Rate 17 17 Blood Pressure 151/86 H 151/97 H Pulse Oximetry 96 95 95 Intake & Output 05/28/18 05/29/18 05/29/18 18:59 06:59 18:59 Intake Total 720 / 720 100 / 100 50 / 50 Output Total 1750 / 1750 4300 / 4300 Balance -1030 / -1030 100 / 100 -4250 / -4250 Intake: IV 100 / 100 50 / 50 Ancef 2 GM Premix Inj 2 gm In 50 / 50 50 ml @ 100 mls/hr IV.SIG Q8H [facility] Rx#:[id number] Ancef Inj 1,000 MG In NS Inj 100 / 100 100 ML @ 200 mls/hr IV.SIG Q24H [facility] Rx#:[id number] Oral 720 / 720 Output: Urine 750 / 750 Hemodialysis Amount 2500 / 2500 Urine Amount (Catheter) 1000 / 1000 1800 / 1800 Indwelling Urethral Catheter 1000 / 1000 1800 / 1800 Other: Date of Last Bowel Movement 05/26/18 05/26/18 05/29/18 # Bowel Movements 0 - Urinary Catheter Management Condom Cath placed during this visit: no Indwelling Urethral Catheter Cath placed during this visit: no <Purvi Cabezas - Last Filed: 05/29/18 15:11> Assessment and Plan - Assessment (1) Altered mental status Code(s): R41.82 - Altered mental status, unspecified Status: Acute Plan: Improved, monitor. (2) Endocarditis Code(s): I38 - Endocarditis, valve unspecified Status: Acute (3) Sepsis Code(s): A41.9 - Sepsis, unspecified organism Status: Acute Qualifiers: Sepsis type: sepsis due to unspecified organism Qualified Code(s): A41.9 - Sepsis, unspecified organism (4) Hyponatremia Code(s): E87.1 - Hypo-osmolality and hyponatremia Status: Acute - Plan Acute renal failure Hemodialysis started , Dialysis Monday and Monday Patient has endocarditis mitral valve involvement and septic emboli Plan Continue with antibiotics, renal dose as appropriate Epogen with hemodialysis Seen during hemodialysis tolerating well , 3 K bath, will remove fluid as tolerated. Creatinine improving at 2.56 yesterday with urinary output of 1.6 L/24 hours Will continue to monitor urinary output, BMP, and watch for renal recovery Labs in AM <Guera Lindo - Last Filed: 05/26/18 11:56> - Assessment (1) Altered mental status Code(s): R41.82 - Altered mental status, unspecified Status: Acute (2) Endocarditis Code(s): I38 - Endocarditis, valve unspecified Status: Acute (3) Sepsis Code(s): A41.9 - Sepsis, unspecified organism Status: Acute Qualifiers: Qualified Code(s): A41.9 - Sepsis, unspecified organism (4) Hyponatremia Code(s): E87.1 - Hypo-osmolality and hyponatremia Status: Acute - Plan Patient seen and examine, agree with above. Tolerating HD, follow the urine out put and BMP. Watch for renal recovery. <Purvi Cabezas - Last Filed: 05/29/18 15:11>
[2018-05-27] MEDS: Insulin NovoLOG Aspart Correctional Sugar Inj SQ SCH ×4 (00:42→17:11)
[2018-05-27] MEDS: Oral Hygiene Kit OROPHARYNG SCH ×4 (02:01→15:22)
[2018-05-27] MEDS: Carboxymethylcellulose 0.5% Opth Drops 15 ML Bottle EACH EYE SCH ×4 (05:28→21:14)
[2018-05-27 05:37] LABS: Baso # (Auto) 0.1 th/mm3 (0.0-0.2); Baso % (Auto) 0.6 % (0.0-2.0); Eos # (Auto) 0.8 th/mm3 (0.0-0.4); Eos % (Auto) 4.1 % (0.0-4.0); Hematocrit 23.3 % (39.0-51.0); Lymph # (Auto) 2.1 th/mm3 (1.0-4.8); Mean Corpuscular HGB Conc 34.2 % (32.0-36.0); Mean Corpuscular Hemoglobin 28.4 pg (27.0-34.0); Mean Corpuscular Volume 83.1 fL (80.0-100.0); Mean Platelet Volume 7.3 fL (7.0-11.0); Mono % (Auto) 10.5 % (0.0-8.0); Neut # (Auto) 14.3 th/mm3 (1.8-7.7); Neut % (Auto) 73.8 % (16.0-70.0); Platelet Count 667 th/mm3 (150-450); Red Cell Distribution Width 16.4 % (11.6-17.2); White Blood Count 19.3 th/mm3 (4.0-11.0)
[2018-05-27 06:05] LABS: Albumin 1.6 g/dL (3.4-5.0); Calcium 5.5 mg/dL (8.5-10.1); Carbon Dioxide 28.2 meq/L (21.0-32.0); Phosphorus 3.9 mg/dL (2.5-4.9); Potassium 3.7 meq/L (3.5-5.1)
[2018-05-27 07:53] LABS: Eosinophils 2 % (0-4); Lymphocytes 12 % (9-44); Metamyelocytes 1 % (0-1); Monocytes 5 % (0-8); Myelocytes 1 % (0-0); Platelet Morphology Normal (Normal)
[2018-05-27] MEDS: Methadone 10 MG Tablet PO SCH (08:07)
[2018-05-27] MEDS: Metoprolol Tartrate 25 MG Tablet PO SCH ×3 (08:08→17:11)
[2018-05-27] MEDS: Senna/Docusate Sodium 8.6/50 MG Tablet PO SCH ×2 (08:09→21:13)
--- NOTE | 2018-05-27 09:59 | P.PNIM ---
Subjective Interval history: f/u; endocarditis in no acute distress. looks fairly comfortable. afebrile. Physical Exam Vital signs: Vital Signs 05/26/18 12:00 05/26/18 16:00 05/26/18 20:00 Temperature 98.8 F 97.6 F 98.3 F Pulse Rate 109 H 95 H 98 H Respiratory Rate 23 22 20 Blood Pressure 143/88 H 119/56 L 140/89 Pulse Oximetry 96 97 95 05/27/18 00:00 05/27/18 04:00 05/27/18 08:00 Temperature 99.4 F 97.7 F 99.6 F Pulse Rate 92 H 97 H 97 H Respiratory Rate 20 20 23 Blood Pressure 141/91 H 153/98 H 135/80 Pulse Oximetry 96 94 L 96 Intake & Output 05/26/18 05/27/18 05/27/18 18:59 06:59 18:59 Intake Total 970 / 970 730 / 730 Output Total 4050 / 4050 800 / 800 Balance -3080 / -3080 -70 / -70 Intake: IV 250 / 250 100 / 100 NS Inj 250 ML @ 15 mls/hr IV. 250 / 250 SIG ONCE ONE Rx#:[id number] Ancef Inj 1,000 MG In NS Inj 100 / 100 100 ML @ 200 mls/hr IV.SIG Q24H [facility] Rx#:[id number] Oral 720 / 720 630 / 630 Output: Urine 1050 / 1050 800 / 800 Hemodialysis Amount 3000 / 3000 Other: Date of Last Bowel Movement 05/25/18 05/26/18 - Constitutional no acute distress - Routine Respiratory Exam Present: CTA bilaterally - Routine Cardiovascular Exam Present: RRR - Routine Abdominal Exam Present: soft - Routine Extremities Exam Comments: left arm is swollen. - Routine Neurological Exam Present: alert, oriented X3 - Urinary Catheter Management Condom Cath placed during this visit: no Indwelling Urethral Catheter Cath placed during this visit: yes, but has since been removed by the nurse Reason for continuing: Decision to DC catheter Insertion date: 05/06/18 Insertion time: 16:40 Removal date: 05/14/18 Removal time: 08:00 Results - Labs CBC & Chem 7: 05/27/18 05:02 05/27/18 05:02 Laboratory Results - last 24 hr 05/26/18 05/26/18 05/27/18 11:13 17:50 05:02 WBC 19.3 H RBC 2.80 L Hgb 8.0 L Hct 23.3 L MCV 83.1 MCH 28.4 MCHC 34.2 RDW 16.4 Plt Count 667 H MPV 7.3 Prelim Diff (Auto) Slide review pending Neut % (Auto) 73.8 H Lymph % (Auto) 11.0 [place] % (Auto) 10.5 H Eos % (Auto) 4.1 H Baso % (Auto) 0.6 Neut # (Auto) 14.3 H Lymph # (Auto) 2.1 [place] # (Auto) 2.0 H Eos # (Auto) 0.8 H Baso # (Auto) 0.1 WBC Differential Manual diff final Seg Neuts % (Manual) 76 H Band Neuts % (Manual) 3 Lymphocytes % (Manual) 12 Monocytes % (Manual) 5 Eosinophils % (Manual) 2 Metamyelocytes % (Man) 1 Myelocytes % (Man) 1 H Abs Neuts (Manual) 15.6 H Differential Comment . Platelet Estimate High H Platelet Morphology Normal Keratocytes Occ H Sodium Potassium Chloride Carbon Dioxide Anion Gap BUN Creatinine Estimated GFR POC Glucose 111 H 96 Random Glucose Calcium Prot Corrected Calcium Phosphorus Total Protein Albumin 05/27/18 05/27/18 05:02 07:31 WBC RBC Hgb Hct MCV MCH MCHC RDW Plt Count MPV Prelim Diff (Auto) Neut % (Auto) Lymph % (Auto) [place] % (Auto) Eos % (Auto) Baso % (Auto) Neut # (Auto) Lymph # (Auto) [place] # (Auto) Eos # (Auto) Baso # (Auto) WBC Differential Seg Neuts % (Manual) Band Neuts % (Manual) Lymphocytes % (Manual) Monocytes % (Manual) Eosinophils % (Manual) Metamyelocytes % (Man) Myelocytes % (Man) Abs Neuts (Manual) Differential Comment Platelet Estimate Platelet Morphology Keratocytes Sodium 135 L Potassium 3.7 Chloride 95 L Carbon Dioxide 28.2 Anion Gap 12 BUN 38 H Creatinine 2.02 H Estimated GFR 37 L POC Glucose 99 Random Glucose 88 Calcium 5.5 L* D Prot Corrected Calcium 5.6 L* Phosphorus 3.9 Total Protein 7.0 Albumin 1.6 L - Procedures AURELIA Assessment and Plan - Plan Severe sepsis - MSSA infective endocarditis Haemophilus influenza pneumonia. New fever ? Drug Fever?- temps are better. leukocytosis- diarrhea -On IV Cefazolin, ON Gentamicin with HD -Blood culture with GPC 4 staph aureus -repeat C-diff negative and repeated MRI lumbar spine with decreased size of posterior fluid collection -venous doppler of the left upper extremity with superficial phlebitis -repeat stool for c-diff negative. -ID following and previously d/w . 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 -Neurology consult for embolic bilateral infarcts. Dr. Mike. Continue aspirin -Supplement multivitamin thiamine -PT OOB Respiratory insufficiency-resolved Pneumonia/septic emboli -DuoNeb every 6 hours as needed -Sputum culture if available -CT chest shows bilateral infiltrates -cont antibiotics.ID following. Lactic acidosis NSTEMI Infective endocarditis Persistent tacjhycardia Hypertension -AURELIA shows large mitral valve vegetation (05/03) -Continue aspirin - DC'ed Coreg- changed to Lopressor 25 mg po q 8 for better rate and BP control - Avoid statins at this time due to hep C -Elevated troponin may be secondary to coronary artery septic emboli Hepatitis C -O/p f/u -Continue regular diet. acute kidney injury Hypocalcemia -Nephrology consulted -started on HD; HD per nephrology. -repeat the calcium level today and replace as needed. -will monitor the renal function. Anemia- of chronic disease- s/p PRBC transfusion on 05/25- H/H improved after transfusion- on Epogen with HD- will monitor. continue to monitor H/H. Pain- history of IVDU - started on methadone 5 mg daily- PROPH: -Bilateral lower extremity SCDs. Discharge Planning: - Self-pay Continues on IV antibiotics. difficult dc. Discharge Planning: on IV antibiotics. with persistent leukocytosis. not ready for discharge.
[2018-05-27] MEDS ORDERED: CALCIUM GLUCONATE IV.SIG ONE (11:56)
[2018-05-27] MEDS ORDERED: SODIUM CHLOR 0.9% IV.SIG ONE (11:56)
--- NOTE | 2018-05-27 12:07 | P.PNNP ---
Subjective Interval history: Sitting up in bed, VSS and afebrile. Hemodialysis yesterday. Calcium level low repeat level has been ordered. <MartínzekeGuera hernandez - Last Filed: 05/27/18 11:59> Physical Exam Vital signs: Vital Signs 05/26/18 16:00 05/26/18 20:00 05/27/18 00:00 Temperature 97.6 F 98.3 F 99.4 F Pulse Rate 95 H 98 H 92 H Respiratory Rate 22 20 20 Blood Pressure 119/56 L 140/89 141/91 H Pulse Oximetry 97 95 96 05/27/18 04:00 05/27/18 08:00 Temperature 97.7 F 99.6 F Pulse Rate 97 H 94 H Respiratory Rate 20 23 Blood Pressure 153/98 H 135/80 Pulse Oximetry 94 L 96 Intake & Output 05/26/18 05/27/18 05/27/18 18:59 06:59 18:59 Intake Total 970 / 970 730 / 730 Output Total 4050 / 4050 800 / 800 Balance -3080 / -3080 -70 / -70 Intake: IV 250 / 250 100 / 100 NS Inj 250 ML @ 15 mls/hr IV. 250 / 250 SIG ONCE ONE Rx#:[id number] Ancef Inj 1,000 MG In NS Inj 100 / 100 100 ML @ 200 mls/hr IV.SIG Q24H [facility] Rx#:[id number] Oral 720 / 720 630 / 630 Output: Urine 1050 / 1050 800 / 800 Hemodialysis Amount 3000 / 3000 Other: Date of Last Bowel Movement 05/25/18 05/26/18 Narrative: GENERAL: Awake, alert. NAD SKIN: Warm and dry. HEAD: Normocephalic. EYES: No scleral icterus. No injection or drainage. NECK: Supple, trachea midline. No JVD. vasc cath in place right IJ CARDIOVASCULAR:Tachycardic and rhythm without murmurs, gallops, or rubs. RESPIRATORY: Breath sounds equal bilaterally. No accessory muscle use. GASTROINTESTINAL: Abdomen soft, nontender MUSCULOSKELETAL: No cyanosis, or edema. - Urinary Catheter Management Condom Cath placed during this visit: no Indwelling Urethral Catheter Cath placed during this visit: yes, but has since been removed by the nurse Reason for continuing: Decision to DC catheter Insertion date: 05/06/18 Insertion time: 16:40 Removal date: 05/14/18 Removal time: 08:00 <Guera Lindo - Last Filed: 05/27/18 11:59> Vital signs: Vital Signs 05/28/18 20:00 05/28/18 20:46 05/28/18 22:30 Temperature 97.2 F L Pulse Rate 93 H 95 H Respiratory Rate 18 Blood Pressure 129/74 Pulse Oximetry 96 97 05/29/18 00:00 05/29/18 04:00 05/29/18 07:42 Temperature Pulse Rate 89 97 H Respiratory Rate Blood Pressure Pulse Oximetry 96 05/29/18 08:00 05/29/18 12:00 05/29/18 16:00 Temperature 98.5 F 98.2 F 98.2 F Pulse Rate 97 H 95 H 87 Respiratory Rate 17 17 18 Blood Pressure 151/86 H 151/97 H 131/80 Pulse Oximetry 95 95 97 Intake & Output 05/28/18 05/29/18 05/29/18 18:59 06:59 18:59 Intake Total 720 / 720 100 / 100 50 / 50 Output Total 1750 / 1750 4300 / 4300 Balance -1030 / -1030 100 / 100 -4250 / -4250 Intake: IV 100 / 100 50 / 50 Ancef 2 GM Premix Inj 2 gm In 50 / 50 50 ml @ 100 mls/hr IV.SIG Q8H [facility] Rx#:[id number] Ancef Inj 1,000 MG In NS Inj 100 / 100 100 ML @ 200 mls/hr IV.SIG Q24H [facility] Rx#:[id number] Oral 720 / 720 Output: Urine 750 / 750 Hemodialysis Amount 2500 / 2500 Urine Amount (Catheter) 1000 / 1000 1800 / 1800 Indwelling Urethral Catheter 1000 / 1000 1800 / 1800 Other: Date of Last Bowel Movement 05/26/18 05/26/18 05/29/18 # Bowel Movements 0 - Urinary Catheter Management Condom Cath placed during this visit: no Indwelling Urethral Catheter Cath placed during this visit: no <Purvi Cabezas - Last Filed: 05/29/18 18:05> Assessment and Plan - Assessment (1) Altered mental status Code(s): R41.82 - Altered mental status, unspecified Status: Acute Plan: Improved, monitor. (2) Endocarditis Code(s): I38 - Endocarditis, valve unspecified Status: Acute (3) Sepsis Code(s): A41.9 - Sepsis, unspecified organism Status: Acute Qualifiers: Sepsis type: sepsis due to unspecified organism Qualified Code(s): A41.9 - Sepsis, unspecified organism (4) Hyponatremia Code(s): E87.1 - Hypo-osmolality and hyponatremia Status: Acute Plan: Acute renal failure Hemodialysis started , Dialysis Monday and Monday Patient has endocarditis mitral valve involvement and septic emboli Plan Continue with antibiotics, renal dose as appropriate Epogen with hemodialysis Hemodialysis yesterday with removal of 3 liters of fluid, tolerated well Hypocalcemia at 5.6, repeat has been ordered, replacement if indicated Creatinine improving at 2.02 with urinary output of 1.8 L/24 hours Will continue to monitor urinary output, BMP, and watch for renal recovery Labs in AM Will be followed by Dr. Lino tomorrow - Plan Acute renal failure Hemodialysis started , Dialysis Monday and Monday Patient has endocarditis mitral valve involvement and septic emboli Plan Continue with antibiotics, renal dose as appropriate Epogen with hemodialysis Seen during hemodialysis tolerating well , 3 K bath, will remove fluid as tolerated. Creatinine improving at 2.56 yesterday with urinary output of 1.6 L/24 hours Will continue to monitor urinary output, BMP, and watch for renal recovery Labs in AM <Guera Lindo - Last Filed: 05/27/18 11:59> - Assessment (1) Altered mental status Code(s): R41.82 - Altered mental status, unspecified Status: Acute (2) Endocarditis Code(s): I38 - Endocarditis, valve unspecified Status: Acute (3) Sepsis Code(s): A41.9 - Sepsis, unspecified organism Status: Acute Qualifiers: Sepsis type: sepsis due to unspecified organism Qualified Code(s): A41.9 - Sepsis, unspecified organism (4) Hyponatremia Code(s): E87.1 - Hypo-osmolality and hyponatremia Status: Acute - Plan Patient seen and examined, agree with above. Continue antibiotics. Watch for renal recovery. <Purvi Cabezas - Last Filed: 05/29/18 18:05>
[2018-05-28] MEDS: Oral Hygiene Kit OROPHARYNG SCH ×4 (02:31→15:12)
[2018-05-28] MEDS: Insulin NovoLOG Aspart Correctional Sugar Inj SQ SCH ×4 (02:47→17:39)
[2018-05-28] MEDS: Carboxymethylcellulose 0.5% Opth Drops 15 ML Bottle EACH EYE SCH ×4 (04:03→21:33)
[2018-05-28 06:56] LABS: Baso # (Auto) 0.1 th/mm3 (0.0-0.2); Baso % (Auto) 0.8 % (0.0-2.0); Eos # (Auto) 0.8 th/mm3 (0.0-0.4); Eos % (Auto) 4.8 % (0.0-4.0); Lymph # (Auto) 1.9 th/mm3 (1.0-4.8); Mean Corpuscular HGB Conc 33.3 % (32.0-36.0); Mean Corpuscular Hemoglobin 28.2 pg (27.0-34.0); Mean Corpuscular Volume 84.7 fL (80.0-100.0); Mean Platelet Volume 7.4 fL (7.0-11.0); Mono # (Auto) 1.5 th/mm3 (0.0-0.9); Mono % (Auto) 8.9 % (0.0-8.0); Neut # (Auto) 12.8 th/mm3 (1.8-7.7); Neut % (Auto) 74.5 % (16.0-70.0); Platelet Count 653 th/mm3 (150-450); Red Blood Count 2.83 mil/mm3 (4.50-5.90); Red Cell Distribution Width 16.2 % (11.6-17.2); White Blood Count 17.2 th/mm3 (4.0-11.0)
[2018-05-28 07:13] LABS: Calcium 8.5 mg/dL (8.5-10.1); Carbon Dioxide 28.6 meq/L (21.0-32.0); Potassium 3.7 meq/L (3.5-5.1)
[2018-05-28 08:14] LABS: Eosinophils 3 % (0-4); Lymphocytes 2 % (9-44); Metamyelocytes 1 % (0-1); Monocytes 7 % (0-8); Myelocytes 1 % (0-0); Platelet Morphology Normal (Normal)
[2018-05-28 08:15] LABS: Helmet Cells Occ
[2018-05-28] MEDS: Methadone 10 MG Tablet PO SCH (08:48)
[2018-05-28] MEDS: Senna/Docusate Sodium 8.6/50 MG Tablet PO SCH ×2 (08:48→21:29)
[2018-05-28] MEDS: Metoprolol Tartrate 25 MG Tablet PO SCH ×3 (08:48→17:38)
--- NOTE | 2018-05-28 16:55 | P.PNIM ---
Subjective Interval history: Follow-up endocarditis. Patient sitting in the bed. Patient denies any complaints except concern on left upper arm edema and dialysis. Patient denies any chest pain or shortness or breath, denies any nausea or vomiting, denies any diarrhea or constipation. Denies any fever or chills. Physical Exam Vital signs: Vital Signs 05/27/18 20:00 05/27/18 20:05 05/27/18 23:55 Temperature 99.4 F Pulse Rate 104 H 105 H 98 H Respiratory Rate 16 Blood Pressure 125/70 Pulse Oximetry 94 L 05/28/18 00:00 05/28/18 04:00 05/28/18 08:00 Temperature 99.2 F 98.9 F 98.2 F Pulse Rate 98 H 89 93 H Respiratory Rate 14 18 17 Blood Pressure 148/88 H 139/83 146/96 H Pulse Oximetry 98 98 95 05/28/18 10:00 05/28/18 12:00 Temperature 97.9 F Pulse Rate 94 H 92 H Respiratory Rate 17 Blood Pressure 149/100 H Pulse Oximetry 98 Intake & Output 05/27/18 05/28/18 05/28/18 18:59 06:59 18:59 Intake Total 720 / 720 780 / 780 Output Total 950 / 950 2150 / 2150 1000 / 1000 Balance -230 / -230 -1370 / -1370 -1000 / -1000 Weight 82.8 kg Intake: IV 100 / 100 Ancef Inj 1,000 MG In NS Inj 100 / 100 100 ML @ 200 mls/hr IV.SIG Q24H [facility] Rx#:[id number] Oral 720 / 720 680 / 680 Output: Urine 950 / 950 2150 / 2150 Urine Amount (Catheter) 1000 / 1000 Indwelling Urethral Catheter 1000 / 1000 Other: Date of Last Bowel Movement 05/26/18 05/26/18 05/26/18 Narrative: GENERAL: Well-developed well-nourished, alert and oriented x3, with no apparent distress SKIN: Warm and dry. HEAD: Atraumatic. Normocephalic. EYES: Pupils equal and round. No scleral icterus. No injection or drainage. ENT: No nasal bleeding or discharge. Mucous membranes pink and moist. NECK: Trachea midline. No JVD. CARDIOVASCULAR: Regular rate and rhythm. RESPIRATORY: No accessory muscle use. Clear to auscultation. Breath sounds equal bilaterally. GASTROINTESTINAL: Abdomen soft, non-tender, nondistended. Hepatic and splenic margins not palpable. MUSCULOSKELETAL: Extremities without clubbing, cyanosis, or edema. No obvious deformities. NEUROLOGICAL: Awake and alert. No obvious cranial nerve deficits. Motor grossly within normal limits. Generalized weakness. Normal speech. PSYCHIATRIC: Appropriate mood and affect; insight and judgment normal. - Urinary Catheter Management Condom Cath placed during this visit: no Indwelling Urethral Catheter Cath placed during this visit: yes, but has since been removed by the nurse Reason for continuing: Decision to DC catheter Insertion date: 05/06/18 Insertion time: 16:40 Removal date: 05/14/18 Removal time: 08:00 Results - Labs CBC & Chem 7: 05/28/18 05:22 05/28/18 05:22 Laboratory Results - last 24 hr 05/28/18 05/28/18 05:22 05:22 WBC 17.2 H RBC 2.83 L Hgb 8.0 L Hct 24.0 L MCV 84.7 MCH 28.2 MCHC 33.3 RDW 16.2 Plt Count 653 H MPV 7.4 Prelim Diff (Auto) Slide review pending Neut % (Auto) 74.5 H Lymph % (Auto) 11.0 [place] % (Auto) 8.9 H Eos % (Auto) 4.8 H Baso % (Auto) 0.8 Neut # (Auto) 12.8 H Lymph # (Auto) 1.9 [place] # (Auto) 1.5 H Eos # (Auto) 0.8 H Baso # (Auto) 0.1 WBC Differential Manual diff final Seg Neuts % (Manual) 84 H Band Neuts % (Manual) 1 Lymphocytes % (Manual) 2 L Monocytes % (Manual) 7 Eosinophils % (Manual) 3 Basophils % (Manual) 1 Metamyelocytes % (Man) 1 Myelocytes % (Man) 1 H Abs Neuts (Manual) 15.0 H Differential Comment . Platelet Estimate High H Platelet Morphology Normal Helmet Cells Occ H Sodium 137 Potassium 3.7 Chloride 98 Carbon Dioxide 28.6 Anion Gap 10 BUN 48 H Creatinine 2.01 H Estimated GFR 37 L Random Glucose 80 Calcium 8.5 - Procedures AURELIA Assessment and Plan - Plan Patient is 30 years old male with history of IV drug use previous endocarditis, hepatitis C, who presented to the ED with acute psychosis and altered mental status. Severe sepsis - MSSA infective endocarditis Haemophilus influenza pneumonia. leukocytosis- diarrhea -On IV Cefazolin, ON Gentamicin with HD -Blood culture with GPC 4 staph aureus -repeat C-diff negative and repeated MRI lumbar spine with decreased size of posterior fluid collection -venous doppler of the left upper extremity with superficial phlebitis -ID following and previously d/w . 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 -Neurology consult for embolic bilateral infarcts. Dr. Mike. Continue aspirin -Supplement multivitamin thiamine -PT OOB Pneumonia/septic emboli/Respiratory insufficiency-resolved -DuoNeb every 6 hours as needed -Sputum culture if available -CT chest shows bilateral infiltrates -cont antibiotics.ID following. Lactic acidosis NSTEMI/Infective endocarditis/Persistent tachycardia/Hypertension -AURELIA shows large mitral valve vegetation (05/03) -Continue aspirin - DC'ed Coreg- changed to Lopressor 25 mg po q 8 for better rate and BP control - Avoid statins at this time due to hep C -Elevated troponin may be secondary to coronary artery septic emboli Hepatitis C -O/p f/u -Continue regular diet. Acute Kidney Injury/Hypocalcemia -Nephrology consulted -HD per nephrology, T-TH- Sat -monitor calcium level and replace as needed. -will monitor the renal function. Anemia- of chronic disease- - s/p PRBC transfusion on 05/25- H/H improved after transfusion- on Epogen with HD - continue to monitor H/H. Pain- history of IVDU - continue on methadone 5 mg daily -monitor response Left UE Thrombus Venous Doppler left UE: Occlusive superficial thrombus in the mid and distal portions of the cephalic vein. Deep venous system is patent. -elevate left UE -monitor DVT PROPH: -Bilateral lower extremity SCDs. Code Status: full code Discussed Condition With: patient and nurse
--- NOTE | 2018-05-28 16:56 | P.PNNP ---
Subjective Interval history: He is tired Physical Exam Vital signs: Vital Signs 05/27/18 20:00 05/27/18 20:05 05/27/18 23:55 Temperature 99.4 F Pulse Rate 104 H 105 H 98 H Respiratory Rate 16 Blood Pressure 125/70 Pulse Oximetry 94 L 05/28/18 00:00 05/28/18 04:00 05/28/18 08:00 Temperature 99.2 F 98.9 F 98.2 F Pulse Rate 98 H 89 93 H Respiratory Rate 14 18 17 Blood Pressure 148/88 H 139/83 146/96 H Pulse Oximetry 98 98 95 05/28/18 10:00 05/28/18 12:00 05/28/18 16:00 Temperature 97.9 F 97.9 F Pulse Rate 94 H 92 H 88 Respiratory Rate 17 16 Blood Pressure 149/100 H 133/88 Pulse Oximetry 98 95 Intake & Output 05/27/18 05/28/18 05/28/18 18:59 06:59 18:59 Intake Total 720 / 720 780 / 780 Output Total 950 / 950 2150 / 2150 1000 / 1000 Balance -230 / -230 -1370 / -1370 -1000 / -1000 Weight 82.8 kg Intake: IV 100 / 100 Ancef Inj 1,000 MG In NS Inj 100 / 100 100 ML @ 200 mls/hr IV.SIG Q24H [facility] Rx#:[id number] Oral 720 / 720 680 / 680 Output: Urine 950 / 950 2150 / 2150 Urine Amount (Catheter) 1000 / 1000 Indwelling Urethral Catheter 1000 / 1000 Other: Date of Last Bowel Movement 05/26/18 05/26/18 05/26/18 Narrative: GENERAL: Well-developed well-nourished, alert and oriented x3, with no apparent distress SKIN: Warm and dry. HEAD: Atraumatic. Normocephalic. EYES: Pupils equal and round. No scleral icterus. No injection or drainage. ENT: No nasal bleeding or discharge. Mucous membranes pink and moist. NECK: Trachea midline. No JVD. CARDIOVASCULAR: Regular rate and rhythm. RESPIRATORY: No accessory muscle use. Clear to auscultation. Breath sounds equal bilaterally. GASTROINTESTINAL: Abdomen soft, non-tender, nondistended. Hepatic and splenic margins not palpable. MUSCULOSKELETAL: Extremities without clubbing, cyanosis, or edema. No obvious deformities. NEUROLOGICAL: Awake and alert. No obvious cranial nerve deficits. Motor grossly within normal limits. Generalized weakness. Normal speech. PSYCHIATRIC: Appropriate mood and affect; insight and judgment normal. - Urinary Catheter Management Condom Cath placed during this visit: no Indwelling Urethral Catheter Cath placed during this visit: yes, but has since been removed by the nurse Reason for continuing: Decision to DC catheter Insertion date: 05/06/18 Insertion time: 16:40 Removal date: 05/14/18 Removal time: 08:00 Assessment and Plan - Assessment (1) Altered mental status Code(s): R41.82 - Altered mental status, unspecified Status: Acute Plan: Improved, monitor. (2) Endocarditis Code(s): I38 - Endocarditis, valve unspecified Status: Acute (3) Sepsis Code(s): A41.9 - Sepsis, unspecified organism Status: Acute Qualifiers: Sepsis type: sepsis due to unspecified organism Qualified Code(s): A41.9 - Sepsis, unspecified organism (4) Hyponatremia Code(s): E87.1 - Hypo-osmolality and hyponatremia Status: Acute Plan: Acute renal failure Hemodialysis started , Dialysis Monday and Monday Patient has endocarditis mitral valve involvement and septic emboli Plan Continue with antibiotics, renal dose as appropriate Epogen with hemodialysis Hemodialysis yesterday with removal of 3 liters of fluid, tolerated well Hypocalcemia at 5.6, repeat has been ordered, replacement if indicated Creatinine improving at 2.02 with urinary output of 1.8 L/24 hours Will continue to monitor urinary output, BMP, and watch for renal recovery Labs in AM Will be followed by Dr. Lino tomorrow - Plan Acute renal failure Hemodialysis started , Dialysis Monday and Monday Patient has endocarditis mitral valve involvement and septic emboli Plan Continue with antibiotics, renal dose as appropriate Epogen with hemodialysis Seen during hemodialysis tolerating well , 3 K bath, will remove fluid as tolerated. Creatinine improving at 2.1 with urinary output of 3.1 L/24 hours Will continue to monitor urinary output, BMP, and watch for renal recovery Labs in AM Stop dialysis
[2018-05-28 18:11] LABS: Baso # (Auto) 0.1 th/mm3 (0.0-0.2); Baso % (Auto) 0.8 % (0.0-2.0); Eos # (Auto) 0.8 th/mm3 (0.0-0.4); Eos % (Auto) 4.4 % (0.0-4.0); Hematocrit 23.7 % (39.0-51.0); Hemoglobin 7.9 gm/dL (13.0-17.0); Lymph # (Auto) 1.8 th/mm3 (1.0-4.8); Mean Corpuscular HGB Conc 33.5 % (32.0-36.0); Mean Corpuscular Volume 83.5 fL (80.0-100.0); Mean Platelet Volume 7.3 fL (7.0-11.0); Mono # (Auto) 1.7 th/mm3 (0.0-0.9); Mono % (Auto) 9.5 % (0.0-8.0); Neut # (Auto) 13.3 th/mm3 (1.8-7.7); Neut % (Auto) 75.3 % (16.0-70.0); Platelet Count 670 th/mm3 (150-450); Red Blood Count 2.84 mil/mm3 (4.50-5.90); Red Cell Distribution Width 16.5 % (11.6-17.2); White Blood Count 17.6 th/mm3 (4.0-11.0)
[2018-05-29] MEDS: Oral Hygiene Kit OROPHARYNG SCH ×5 (00:08→23:05)
[2018-05-29] MEDS: Insulin NovoLOG Aspart Correctional Sugar Inj SQ SCH ×3 (00:08→11:36)
[2018-05-29] MEDS: Carboxymethylcellulose 0.5% Opth Drops 15 ML Bottle EACH EYE SCH ×4 (04:10→22:06)
[2018-05-29 08:44] LABS: Calcium 8.5 mg/dL (8.5-10.1); Carbon Dioxide 26.7 meq/L (21.0-32.0); Potassium 3.9 meq/L (3.5-5.1)
[2018-05-29] MEDS: Methadone 10 MG Tablet PO SCH (09:10)
[2018-05-29] MEDS: Senna/Docusate Sodium 8.6/50 MG Tablet PO SCH ×2 (09:10→22:06)
[2018-05-29] MEDS: Metoprolol Tartrate 25 MG Tablet PO SCH ×2 (09:10→12:30)
[2018-05-29] MEDS: ceFAZolin 2 GM Premix Inj 2 GM/50 ML PIGGYBACK IV.SIG SCH ×2 (10:21→18:34)
--- NOTE | 2018-05-29 14:54 | P.PNNP ---
Subjective Interval history: Doing okay Physical Exam Vital signs: Vital Signs 05/28/18 16:00 05/28/18 20:00 05/28/18 20:46 Temperature 97.9 F Pulse Rate 95 H 93 H Respiratory Rate 16 Blood Pressure 133/88 Pulse Oximetry 95 96 05/28/18 22:30 05/29/18 00:00 05/29/18 04:00 Temperature 97.2 F L Pulse Rate 95 H 89 97 H Respiratory Rate 18 Blood Pressure 129/74 Pulse Oximetry 97 05/29/18 07:42 05/29/18 08:00 05/29/18 12:00 Temperature 98.5 F 98.2 F Pulse Rate 97 H 95 H Respiratory Rate 17 17 Blood Pressure 151/86 H 151/97 H Pulse Oximetry 96 95 95 Intake & Output 05/28/18 05/29/18 05/29/18 18:59 06:59 18:59 Intake Total 720 / 720 100 / 100 50 / 50 Output Total 1750 / 1750 4300 / 4300 Balance -1030 / -1030 100 / 100 -4250 / -4250 Intake: IV 100 / 100 50 / 50 Ancef 2 GM Premix Inj 2 gm In 50 / 50 50 ml @ 100 mls/hr IV.SIG Q8H [facility] Rx#:[id number] Ancef Inj 1,000 MG In NS Inj 100 / 100 100 ML @ 200 mls/hr IV.SIG Q24H [facility] Rx#:[id number] Oral 720 / 720 Output: Urine 750 / 750 Hemodialysis Amount 2500 / 2500 Urine Amount (Catheter) 1000 / 1000 1800 / 1800 Indwelling Urethral Catheter 1000 / 1000 1800 / 1800 Other: Date of Last Bowel Movement 05/26/18 05/26/18 05/29/18 # Bowel Movements 0 Narrative: GENERAL: Well-developed well-nourished, alert and oriented x3, with no apparent distress SKIN: Warm and dry. HEAD: Atraumatic. Normocephalic. EYES: Pupils equal and round. No scleral icterus. No injection or drainage. ENT: No nasal bleeding or discharge. Mucous membranes pink and moist. NECK: Trachea midline. No JVD. CARDIOVASCULAR: Regular rate and rhythm. RESPIRATORY: No accessory muscle use. Clear to auscultation. Breath sounds equal bilaterally. GASTROINTESTINAL: Abdomen soft, non-tender, nondistended. Hepatic and splenic margins not palpable. MUSCULOSKELETAL: Extremities without clubbing, cyanosis, or edema. No obvious deformities. NEUROLOGICAL: Awake and alert. No obvious cranial nerve deficits. Motor grossly within normal limits. Generalized weakness. Normal speech. PSYCHIATRIC: Appropriate mood and affect; insight and judgment normal. - Urinary Catheter Management Condom Cath placed during this visit: no Indwelling Urethral Catheter Cath placed during this visit: yes, but has since been removed by the nurse Reason for continuing: Decision to DC catheter Insertion date: 05/06/18 Insertion time: 16:40 Removal date: 05/14/18 Removal time: 08:00 Assessment and Plan - Assessment (1) Altered mental status Code(s): R41.82 - Altered mental status, unspecified Status: Acute Plan: Improved, monitor. (2) Endocarditis Code(s): I38 - Endocarditis, valve unspecified Status: Acute (3) Sepsis Code(s): A41.9 - Sepsis, unspecified organism Status: Acute Qualifiers: Sepsis type: sepsis due to unspecified organism Qualified Code(s): A41.9 - Sepsis, unspecified organism (4) Hyponatremia Code(s): E87.1 - Hypo-osmolality and hyponatremia Status: Acute Plan: Acute renal failure Hemodialysis started , Dialysis Monday and Monday Patient has endocarditis mitral valve involvement and septic emboli Plan Continue with antibiotics, renal dose as appropriate Epogen with hemodialysis Hemodialysis yesterday with removal of 3 liters of fluid, tolerated well Hypocalcemia at 5.6, repeat has been ordered, replacement if indicated Creatinine improving at 2.02 with urinary output of 1.8 L/24 hours Will continue to monitor urinary output, BMP, and watch for renal recovery Labs in AM Will be followed by Dr. Lino tomorrow - Plan Acute renal failure Hemodialysis started , Dialysis Monday and Monday Patient has endocarditis mitral valve involvement and septic emboli Plan Stop dialysis Acute renal failure resolved DC Vas-Cath Will follow as needed
--- NOTE | 2018-05-29 15:26 | P.PNIM ---
Subjective Interval history: Follow-up endocarditis. 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 Patient states that she has been avoiding however the [place] has with back in a couple of days ago. Patient worried about his infection and fever. Discussed about antibiotic treatment. Patient complained of back pain of 6 out of 10 being relieved by the pain medication methadone at 2 out of 10 pain scale. Relieved with resting, aggravated with movement. Stated pain is chronic. Patient denies any headache or dizziness, denies any fever or chills, denies any nausea or vomiting, denies diarrhea or constipation. Physical Exam Vital signs: Vital Signs 05/28/18 16:00 05/28/18 20:00 05/28/18 20:46 Temperature 97.9 F Pulse Rate 95 H 93 H Respiratory Rate 16 Blood Pressure 133/88 Pulse Oximetry 95 96 05/28/18 22:30 05/29/18 00:00 05/29/18 04:00 Temperature 97.2 F L Pulse Rate 95 H 89 97 H Respiratory Rate 18 Blood Pressure 129/74 Pulse Oximetry 97 05/29/18 07:42 05/29/18 08:00 05/29/18 12:00 Temperature 98.5 F 98.2 F Pulse Rate 97 H 95 H Respiratory Rate 17 17 Blood Pressure 151/86 H 151/97 H Pulse Oximetry 96 95 95 Intake & Output 05/28/18 05/29/18 05/29/18 18:59 06:59 18:59 Intake Total 720 / 720 100 / 100 50 / 50 Output Total 1750 / 1750 4300 / 4300 Balance -1030 / -1030 100 / 100 -4250 / -4250 Intake: IV 100 / 100 50 / 50 Ancef 2 GM Premix Inj 2 gm In 50 / 50 50 ml @ 100 mls/hr IV.SIG Q8H [facility] Rx#:[id number] Ancef Inj 1,000 MG In NS Inj 100 / 100 100 ML @ 200 mls/hr IV.SIG Q24H [facility] Rx#:[id number] Oral 720 / 720 Output: Urine 750 / 750 Hemodialysis Amount 2500 / 2500 Urine Amount (Catheter) 1000 / 1000 1800 / 1800 Indwelling Urethral Catheter 1000 / 1000 1800 / 1800 Other: Date of Last Bowel Movement 05/26/18 05/26/18 05/29/18 # Bowel Movements 0 Narrative: GENERAL: Well-developed, well-nourished, alert and oriented x3, with no apparent distress. SKIN: Warm and dry. HEAD: Atraumatic. Normocephalic. EYES: Pupils equal and round. No scleral icterus. No injection or drainage. ENT: No nasal bleeding or discharge. Mucous membranes pink and moist. NECK: Trachea midline. No JVD. CARDIOVASCULAR: Regular rate and rhythm. RESPIRATORY: No accessory muscle use. Clear to auscultation. Breath sounds equal bilaterally. GASTROINTESTINAL: Abdomen soft, non-tender, nondistended. Hepatic and splenic margins not palpable. MUSCULOSKELETAL: Extremities without clubbing, cyanosis, or edema. No obvious deformities. NEUROLOGICAL: Awake and alert. No obvious cranial nerve deficits. Motor grossly within normal limits. Generalized weakness. Normal speech. PSYCHIATRIC: Appropriate mood and affect; insight and judgment normal. - Urinary Catheter Management Condom Cath placed during this visit: no Indwelling Urethral Catheter Cath placed during this visit: yes, but has since been removed by the nurse Reason for continuing: Decision to DC catheter Insertion date: 05/06/18 Insertion time: 16:40 Removal date: 05/14/18 Removal time: 08:00 Results - Labs CBC & Chem 7: 05/28/18 17:29 05/29/18 07:32 Laboratory Results - last 24 hr 05/28/18 05/28/18 05/29/18 17:29 23:31 07:32 WBC 17.6 H RBC 2.84 L Hgb 7.9 L Hct 23.7 L MCV 83.5 MCH 28.0 MCHC 33.5 RDW 16.5 Plt Count 670 H MPV 7.3 Neut % (Auto) 75.3 H Lymph % (Auto) 10.0 [place] % (Auto) 9.5 H Eos % (Auto) 4.4 H Baso % (Auto) 0.8 Neut # (Auto) 13.3 H Lymph # (Auto) 1.8 [place] # (Auto) 1.7 H Eos # (Auto) 0.8 H Baso # (Auto) 0.1 WBC Differential . Differential Comment Auto diff final Sodium 137 Potassium 3.9 Chloride 100 Carbon Dioxide 26.7 Anion Gap 10 BUN 50 H Creatinine 1.92 H Estimated GFR 39 L POC Glucose 110 Random Glucose 82 Calcium 8.5 05/29/18 11:41 WBC RBC Hgb Hct MCV MCH MCHC RDW Plt Count MPV Neut % (Auto) Lymph % (Auto) [place] % (Auto) Eos % (Auto) Baso % (Auto) Neut # (Auto) Lymph # (Auto) [place] # (Auto) Eos # (Auto) Baso # (Auto) WBC Differential Differential Comment Sodium Potassium Chloride Carbon Dioxide Anion Gap BUN Creatinine Estimated GFR POC Glucose 96 Random Glucose Calcium - Procedures AURELIA Assessment and Plan - Plan Patient is 30 years old male with history of IV drug use previous endocarditis, hepatitis C, who presented to the ED with acute psychosis and altered mental status. Severe sepsis / MSSA infective endocarditis/ Haemophilus influenza pneumonia. leukocytosis /diarrhea -On IV Cefazolin, ON Gentamicin with HD -Blood culture with GPC 4 staph aureus -repeat C-diff negative and repeated MRI lumbar spine with decreased size of posterior fluid collection -venous doppler of the left upper extremity with superficial phlebitis -ID following and previously d/w . 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 -Neurology consult for embolic bilateral infarcts. Dr. Mike. Continue aspirin -Supplement multivitamin thiamine -PT OOB Pneumonia/septic emboli/Respiratory insufficiency-resolved -DuoNeb every 6 hours as needed -Sputum culture if available -CT chest shows bilateral infiltrates -cont antibiotics.ID following. Lactic acidosis NSTEMI/Infective endocarditis/Persistent tachycardia/Hypertension -AURELIA shows large mitral valve vegetation (05/03) -Continue aspirin - Avoid statins at this time due to hep C -Elevated troponin may be secondary to coronary artery septic emboli Coreg discontinued, change Lopressor , increase dose to 50 mg po q8 for better rate and BP control Acute Kidney Injury/Hypocalcemia -Nephrology consulted -was on HD T-TH- Sat, stopped today per Nephrology, scute renal failure resolved -monitor calcium level and replace as needed. - avoid nephrotoxins -will monitor the renal function. Hepatitis C -O/p f/u -Continue regular diet. Anemia- of chronic disease- - s/p PRBC transfusion on 05/25- H/H improved after transfusion- on Epogen - continue to monitor H/H. -add MVI Pain- history of IVDU - continue on methadone 5 mg daily, pain controlled -monitor response Left UE Thrombus Venous Doppler left UE: Occlusive superficial thrombus in the mid and distal portions of the cephalic vein. Deep venous system is patent. -elevate left UE -monitor DVT PROPH: -Bilateral lower extremity SCDs. Code Status: full code Discussed Condition With: patient and Nurse
--- NOTE | 2018-05-29 16:36 | P.PNID ---
Subjective Remarks: afebrile WBC going down and is now 17 K much improved diarrhea poliuria HD on hold Antibiotics: ancef Past Medical History: IVDU Allergies/Adverse Reactions: Allergies No Known Allergies Allergy (Unknown, Uncoded 07/13/17 00:28) Objective Vital Signs 05/28/18 20:00 05/28/18 20:46 05/28/18 22:30 Temperature 97.2 F L Pulse Rate 93 H 95 H Respiratory Rate 18 Blood Pressure 129/74 Pulse Oximetry 96 97 05/29/18 00:00 05/29/18 04:00 05/29/18 07:42 Temperature Pulse Rate 89 97 H Respiratory Rate Blood Pressure Pulse Oximetry 96 05/29/18 08:00 05/29/18 12:00 Temperature 98.5 F 98.2 F Pulse Rate 97 H 95 H Respiratory Rate 17 17 Blood Pressure 151/86 H 151/97 H Pulse Oximetry 95 95 Intake & Output 05/28/18 05/29/18 05/29/18 18:59 06:59 18:59 Intake Total 720 / 720 100 / 100 50 / 50 Output Total 1750 / 1750 4300 / 4300 Balance -1030 / -1030 100 / 100 -4250 / -4250 Intake: IV 100 / 100 50 / 50 Ancef 2 GM Premix Inj 2 gm In 50 / 50 50 ml @ 100 mls/hr IV.SIG Q8H [facility] Rx#:[id number] Ancef Inj 1,000 MG In NS Inj 100 / 100 100 ML @ 200 mls/hr IV.SIG Q24H [facility] Rx#:[id number] Oral 720 / 720 Output: Urine 750 / 750 Hemodialysis Amount 2500 / 2500 Urine Amount (Catheter) 1000 / 1000 1800 / 1800 Indwelling Urethral Catheter 1000 / 1000 1800 / 1800 Other: Date of Last Bowel Movement 05/26/18 05/26/18 05/29/18 # Bowel Movements 0 Lab - Hematology Results 05/28/18 05/28/18 05:22 17:29 WBC 17.2 H 17.6 H RBC 2.83 L 2.84 L Hgb 8.0 L 7.9 L Hct 24.0 L 23.7 L MCV 84.7 83.5 MCH 28.2 28.0 MCHC 33.3 33.5 RDW 16.2 16.5 Plt Count 653 H 670 H MPV 7.4 7.3 Prelim Diff (Auto) Slide review pending Neut % (Auto) 74.5 H 75.3 H Lymph % (Auto) 11.0 10.0 [place] % (Auto) 8.9 H 9.5 H Eos % (Auto) 4.8 H 4.4 H Baso % (Auto) 0.8 0.8 Neut # (Auto) 12.8 H 13.3 H Lymph # (Auto) 1.9 1.8 [place] # (Auto) 1.5 H 1.7 H Eos # (Auto) 0.8 H 0.8 H Baso # (Auto) 0.1 0.1 WBC Differential Manual diff final . Seg Neuts % (Manual) 84 H Band Neuts % (Manual) 1 Lymphocytes % (Manual) 2 L Monocytes % (Manual) 7 Eosinophils % (Manual) 3 Basophils % (Manual) 1 Metamyelocytes % (Man) 1 Myelocytes % (Man) 1 H Abs Neuts (Manual) 15.0 H Differential Comment . Auto diff final Platelet Estimate High H Platelet Morphology Normal Helmet Cells Occ H Lab - Chemistry Results 05/28/18 05/28/18 05/29/18 05:22 23:31 07:32 Sodium 137 137 Potassium 3.7 3.9 Chloride 98 100 Carbon Dioxide 28.6 26.7 Anion Gap 10 10 BUN 48 H 50 H Creatinine 2.01 H 1.92 H Estimated GFR 37 L 39 L POC Glucose 110 Random Glucose 80 82 Calcium 8.5 8.5 05/29/18 11:41 Sodium Potassium Chloride Carbon Dioxide Anion Gap BUN Creatinine Estimated GFR POC Glucose 96 Random Glucose Calcium Imaging: ITS Impressions Chest CT 04/30/18 00:00 CONCLUSION: 1. Parenchymal process bilaterally most likely inflammatory and pneumonia. Head MRI 05/01/18 00:00 CONCLUSION: 1. Multifocal bilateral punctate infarcts, suspicious for embolic disease. 2. No midline shift or mass effect. Thoracic Spine MRI 05/06/18 00:00 CONCLUSION: 1. Negative thoracic MRI with no evidence of osteomyelitis or discitis. 2. Please see lumbar spine MRI for further details on findings in this region. Head CT 05/06/18 15:42 CONCLUSION: 1. No acute hemorrhage or mass effect. 2. The small bilateral known punctate infarcts seen on the MRI are not distinctly visualized. 3. Mucosal thickening in the ethmoidal air cells, sphenoid sinus and both maxillary sinuses. Abdomen/Bladder Ultrasound 05/08/18 00:00 CONCLUSION: 1. Trace perinephric fluid surrounding the right kidney. 2. Small right pleural effusion. 3. Otherwise normal sonographic appearance of the kidneys without evidence of hydronephrosis. Chest X-Ray 05/12/18 05:00 CONCLUSION: 1. Stable tubes and lines, as above. 2. Significantly improved diffuse patchy bilateral interstitial and alveolar opacities. Abdomen/Pelvis CT 05/23/18 00:00 CONCLUSION: 1. New moderate-sized area of left lower lobe atelectasis. 2. New small pericardial effusion. 3. New mild superficial soft tissue edema of the lateral anterior abdominal wall bilaterally. 4. Splenic infarct again noted. 5. Perinephric stranding again noted bilaterally. Lumbar Spine MRI 05/24/18 00:00 CONCLUSION: 1. Subcutaneous fluid as described above. This is decreased since prior of 04/2018. 2. No significant disc protrusion identified. No abnormal marrow signal seen within the vertebral bodies. Venous Doppler Study 05/24/18 00:00 CONCLUSION: 1. Occlusive superficial thrombus in the mid and distal portions of the cephalic vein. Deep venous system is patent. Physical Exam: GENERAL: NAD SKIN: Warm and dry. evolving extensive petechial and [place] lesions HEAD: Atraumatic. Normocephalic. EYES: Pupils equal and round. No scleral icterus. No injection or drainage. evolvinhg conjunctival hmrgs NECK: supple CARDIOVASCULAR: Regular rate and rhythm. + systolic murmur 2/6 RESPIRATORY: No accessory muscle use. Clear to auscultation. Breath sounds equal bilaterally. GASTROINTESTINAL: Abdomen soft, very tender RLQ/LLQ, nmoderately distended. Hepatic and splenic margins not palpable. MUSCULOSKELETAL: Extremities without clubbing, cyanosis, or edema. No obvious deformities. 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 Soft tissue abscess L area - not present on US PNA, H flu: clincially resolved Diarrhea, abx associated, C.diff negative 2/2 Persistent diarrhea, abd pain Persistent fever Persisten leukocytosis - slowly improving Occlusive superficial thrombus in the mid and distal portions of the cephalic vein, no DVT - clinically improving Still has fluid collection in L spine area subcutaneously, but no vertebral changes - cont cefazoline adjusted renally anticipate 6 weeks from 1st negative blood clx unless metastatic infections will require longer tx duration (Stop date Jun 20) monitor WBC, fever
[2018-05-29] MEDS: Metoprolol Tartrate 50 MG Tablet PO SCH (17:28)
[2018-05-29] MEDS: Sodium Chloride 0.9% 2 ML Flush BID IV.FLUSH SCH (22:11)
[2018-05-30] MEDS: ceFAZolin 2 GM Premix Inj 2 GM/50 ML PIGGYBACK IV.SIG SCH ×3 (02:16→17:21)
[2018-05-30] MEDS: Oral Hygiene Kit OROPHARYNG SCH ×4 (04:00→23:48)
[2018-05-30] MEDS: Carboxymethylcellulose 0.5% Opth Drops 15 ML Bottle EACH EYE SCH ×4 (04:00→21:25)
[2018-05-30 06:41] LABS: Calcium 8.7 mg/dL (8.5-10.1); Carbon Dioxide 26.6 meq/L (21.0-32.0); Potassium 3.8 meq/L (3.5-5.1)
[2018-05-30] MEDS: Methadone 10 MG Tablet PO SCH (08:14)
[2018-05-30] MEDS: Multivitamin/Minerals Therapeutic Tablet PO SCH (08:15)
[2018-05-30] MEDS: Metoprolol Tartrate 50 MG Tablet PO SCH ×3 (08:15→17:21)
[2018-05-30] MEDS: Sodium Chloride 0.9% 2 ML Flush BID IV.FLUSH SCH ×2 (08:16→20:28)
[2018-05-30] MEDS: Senna/Docusate Sodium 8.6/50 MG Tablet PO SCH ×2 (08:17→20:29)
--- NOTE | 2018-05-30 14:24 | P.PNIM ---
Subjective Interval history: Follow-up endocarditis. Patient seen and examined, sitting in the chair, denies any complaints except the discomfort on his left arm which is getting better. Denies chest pain shortness of breath, discussed dialysis is finished per nephrology recommendation. Discussed antibiotic treatment, patient denies any fever or chills. Patient denies any headache or dizziness, denies any fever or chills, denies any nausea or vomiting, denies diarrhea or constipation. Physical Exam Vital signs: Vital Signs 05/29/18 16:00 05/29/18 19:45 05/29/18 20:00 Temperature 98.2 F 99.0 F Pulse Rate 84 86 80 Respiratory Rate 18 18 Blood Pressure 131/80 124/71 Pulse Oximetry 97 97 05/30/18 00:00 05/30/18 00:44 05/30/18 04:00 Temperature 98.6 F 97.1 F L Pulse Rate 84 89 71 Respiratory Rate 18 18 Blood Pressure 135/79 128/80 Pulse Oximetry 98 97 05/30/18 08:00 05/30/18 12:00 Temperature 98.7 F 97.9 F Pulse Rate 89 72 Respiratory Rate 18 18 Blood Pressure 139/76 130/75 Pulse Oximetry 97 98 Intake & Output 05/29/18 05/30/18 05/30/18 18:59 06:59 18:59 Intake Total 1250 / 1250 800 / 800 50 / 50 Output Total 6275 / 6275 1700 / 1700 Balance -5025 / -5025 -900 / -900 50 / 50 Weight 76.4 kg Intake: IV 50 / 50 100 / 100 50 / 50 Ancef 2 GM Premix Inj 2 gm In 50 / 50 100 / 100 50 / 50 50 ml @ 100 mls/hr IV.SIG Q8H [facility] Rx#:[id number] Oral 1200 / 1200 700 / 700 Output: Urine 1974 / 1974 Hemodialysis Amount 2500 / 2500 Urine Amount (Catheter) 1800 / 1800 1700 / 1700 Condom 1700 / 1700 Indwelling Urethral Catheter 1800 / 1800 Other: Date of Last Bowel Movement 05/29/18 05/29/18 # Bowel Movements 1 Narrative: GENERAL: Well-developed, well-nourished, alert and oriented x3, with no apparent distress. SKIN: Warm and dry. HEAD: Atraumatic. Normocephalic. EYES: Pupils equal and round. No scleral icterus. No injection or drainage. ENT: No nasal bleeding or discharge. Mucous membranes pink and moist. NECK: Trachea midline. No JVD. CARDIOVASCULAR: Regular rate and rhythm. RESPIRATORY: No accessory muscle use. Clear to auscultation. Breath sounds equal bilaterally. GASTROINTESTINAL: Abdomen soft, non-tender, nondistended. Hepatic and splenic margins not palpable. MUSCULOSKELETAL: Extremities without clubbing, cyanosis. No obvious deformities. left arm edema improving NEUROLOGICAL: Awake and alert. No obvious cranial nerve deficits. Motor grossly within normal limits. Generalized weakness. Normal speech. PSYCHIATRIC: Appropriate mood and affect; insight and judgment normal. - Urinary Catheter Management Condom Cath placed during this visit: no Indwelling Urethral Catheter Cath placed during this visit: yes, but has since been removed by the nurse Reason for continuing: Decision to DC catheter Insertion date: 05/06/18 Insertion time: 16:40 Removal date: 05/14/18 Removal time: 08:00 Results - Labs CBC & Chem 7: 05/28/18 17:29 05/30/18 05:15 Laboratory Results - last 24 hr 05/30/18 05:15 Sodium 139 Potassium 3.8 Chloride 103 Carbon Dioxide 26.6 Anion Gap 9 BUN 49 H Creatinine 1.97 H Estimated GFR 38 L Random Glucose 80 Calcium 8.7 - Procedures AURELIA Assessment and Plan - Plan Patient is 30 years old male with history of IV drug use previous endocarditis, hepatitis C, who presented to the ED with acute psychosis and altered mental status. Severe sepsis / MSSA infective endocarditis/ Haemophilus influenza pneumonia. leukocytosis /diarrhea -Blood culture with GPC 4 staph aureus -repeat C-diff negative and repeated MRI lumbar spine with decreased size of posterior fluid collection -venous doppler of the left upper extremity with superficial phlebitis -ID following- . - continue IV antbx Cefazolin until 06/20/18 per ID recommendation -monitor CBC Acute metabolic encephalopathy- MS improved Multifocal bilateral punctate infarcts, probable septic emboli Polysubstance abuse with withdrawal -MRI brain shows Multifocal bilateral punctate infarcts, suspicious for embolic disease. -Neurology consult for embolic bilateral infarcts. Dr. Mike. Continue aspirin -Supplement multivitamin thiamine -PT OOB Pneumonia/septic emboli/Respiratory insufficiency-resolved -DuoNeb every 6 hours as needed -Sputum culture if available -CT chest shows bilateral infiltrates -ID following -cont IV antibiotics Cefazolin until 06/20/18 per ID Lactic acidosis NSTEMI/Infective endocarditis/Persistent tachycardia/Hypertension -AURELIA shows large mitral valve vegetation (05/03) -Continue aspirin - Avoid statins at this time due to hep C -Elevated troponin may be secondary to coronary artery septic emboli -Coreg discontinued, change Lopressor , increase dose to 50 mg po q8 for better rate and BP control Acute Kidney Injury/Hypocalcemia -Nephrology consulted -was on HD T-- Sat, stopped today per Nephrology, scute renal failure resolved -monitor calcium level and replace as needed. - avoid nephrotoxins -will monitor the renal function. Hepatitis C -O/p f/u -Continue regular diet. Anemia- of chronic disease- - s/p PRBC transfusion on 05/25- H/H improved after transfusion- on Epogen - continue to monitor H/H. -add MVI Pain- history of IVDU - continue on methadone 5 mg daily, pain controlled -monitor response Left UE Thrombus Venous Doppler left UE: Occlusive superficial thrombus in the mid and distal portions of the cephalic vein. Deep venous system is patent. -elevate left UE -monitor DVT PROPH: -Bilateral lower extremity SCDs. Code Status: full code Discussed Condition With: patient and nurse
[2018-05-31] MEDS: ceFAZolin 2 GM Premix Inj 2 GM/50 ML PIGGYBACK IV.SIG SCH ×3 (01:38→18:47)
[2018-05-31] MEDS: Carboxymethylcellulose 0.5% Opth Drops 15 ML Bottle EACH EYE SCH ×4 (05:26→23:21)
[2018-05-31] MEDS: Oral Hygiene Kit OROPHARYNG SCH ×3 (05:26→18:47)
[2018-05-31] MEDS: Methadone 10 MG Tablet PO SCH (09:47)
[2018-05-31] MEDS: Metoprolol Tartrate 50 MG Tablet PO SCH ×3 (09:51→20:21)
[2018-05-31] MEDS: Senna/Docusate Sodium 8.6/50 MG Tablet PO SCH ×2 (09:53→20:16)
[2018-05-31] MEDS: Sodium Chloride 0.9% 2 ML Flush BID IV.FLUSH SCH ×2 (09:55→20:16)
[2018-05-31] MEDS: Multivitamin/Minerals Therapeutic Tablet PO SCH (13:34)
[2018-05-31 13:44] LABS: Baso # (Auto) 0.1 th/mm3 (0.0-0.2); Baso % (Auto) 1.1 % (0.0-2.0); Eos # (Auto) 0.5 th/mm3 (0.0-0.4); Eos % (Auto) 4.9 % (0.0-4.0); Hematocrit 25.3 % (39.0-51.0); Hemoglobin 8.4 gm/dL (13.0-17.0); Lymph # (Auto) 1.3 th/mm3 (1.0-4.8); Lymph % (Auto) 12.5 % (9.0-44.0); Mean Corpuscular HGB Conc 33.2 % (32.0-36.0); Mean Corpuscular Hemoglobin 27.8 pg (27.0-34.0); Mean Corpuscular Volume 83.8 fL (80.0-100.0); Mean Platelet Volume 7.5 fL (7.0-11.0); Mono # (Auto) 0.9 th/mm3 (0.0-0.9); Mono % (Auto) 8.8 % (0.0-8.0); Neut # (Auto) 7.8 th/mm3 (1.8-7.7); Neut % (Auto) 72.7 % (16.0-70.0); Platelet Count 647 th/mm3 (150-450); Red Blood Count 3.02 mil/mm3 (4.50-5.90); Red Cell Distribution Width 16.3 % (11.6-17.2); White Blood Count 10.7 th/mm3 (4.0-11.0)
[2018-05-31 14:05] LABS: Calcium 8.7 mg/dL (8.5-10.1); Carbon Dioxide 27.4 meq/L (21.0-32.0); Potassium 4.1 meq/L (3.5-5.1)
--- NOTE | 2018-05-31 14:47 | P.PNIM ---
Subjective Interval history: Follow-up endocarditis, MSSA, AKA, anemia, left arm thrombus. Patient stated left arm swelling is getting better. Patient stated doing well, feeling better , stated walking more with the physical therapy. Patient sitting in bed denies any fever or chills patient denies any coughing, denies any chest pain or shortness of breath, denies any nausea or vomiting. Patient denies any diarrhea or constipation at this time Physical Exam Vital signs: Vital Signs 05/30/18 16:00 05/30/18 20:00 05/31/18 00:00 Temperature 98.0 F 98.6 F 98 F Pulse Rate 82 86 75 Respiratory Rate 18 16 18 Blood Pressure 142/74 H 130/80 111/64 Pulse Oximetry 95 98 98 05/31/18 04:00 05/31/18 08:00 05/31/18 12:00 Temperature 98.4 F 98.3 F 97.8 F Pulse Rate 82 84 84 Respiratory Rate 16 22 23 Blood Pressure 124/71 121/77 138/82 Pulse Oximetry 95 98 98 05/31/18 13:35 Temperature Pulse Rate Respiratory Rate 18 Blood Pressure Pulse Oximetry Intake & Output 05/30/18 05/31/18 05/31/18 18:59 06:59 18:59 Intake Total 580 / 580 530 / 530 Output Total 1650 / 1650 1350 / 1350 Balance -1070 / -1070 -820 / -820 Weight 77.9 kg Intake: IV 100 / 100 50 / 50 Ancef 2 GM Premix Inj 2 gm In 100 / 100 50 / 50 50 ml @ 100 mls/hr IV.SIG Q8H [facility] Rx#:[id number] Oral 480 / 480 480 / 480 Output: Urine 1650 / 1650 1350 / 1350 Other: Date of Last Bowel Movement 05/29/18 05/29/18 # Bowel Movements 0 Narrative: GENERAL: Well-developed, well-nourished, alert and oriented x3, with no apparent distress. SKIN: Warm and dry. tattoos on lower leg HEAD: Atraumatic. Normocephalic. EYES: Pupils equal and round. No scleral icterus. No injection or drainage. ENT: No nasal bleeding or discharge. Mucous membranes pink and moist. NECK: Trachea midline. No JVD. CARDIOVASCULAR: Regular rate and rhythm. RESPIRATORY: No accessory muscle use. Clear to auscultation. Breath sounds equal bilaterally. GASTROINTESTINAL: Abdomen soft, non-tender, nondistended. Hepatic and splenic margins not palpable. MUSCULOSKELETAL: Extremities without clubbing, cyanosis. No obvious deformities. left arm edema improving NEUROLOGICAL: Awake and alert. No obvious cranial nerve deficits. Motor grossly within normal limits. Generalized weakness. Normal speech. PSYCHIATRIC: Appropriate mood and affect; insight and judgment normal. - Urinary Catheter Management Condom Cath placed during this visit: no Indwelling Urethral Catheter Cath placed during this visit: yes, but has since been removed by the nurse Reason for continuing: Decision to DC catheter Insertion date: 05/06/18 Insertion time: 16:40 Removal date: 05/14/18 Removal time: 08:00 Results - Labs CBC & Chem 7: 05/31/18 12:57 05/31/18 12:57 Laboratory Results - last 24 hr 05/31/18 05/31/18 12:57 12:57 WBC 10.7 RBC 3.02 L Hgb 8.4 L Hct 25.3 L MCV 83.8 MCH 27.8 MCHC 33.2 RDW 16.3 Plt Count 647 H MPV 7.5 Neut % (Auto) 72.7 H Lymph % (Auto) 12.5 [place] % (Auto) 8.8 H Eos % (Auto) 4.9 H Baso % (Auto) 1.1 Neut # (Auto) 7.8 H Lymph # (Auto) 1.3 [place] # (Auto) 0.9 Eos # (Auto) 0.5 H Baso # (Auto) 0.1 WBC Differential . Differential Comment Auto diff final Sodium 143 Potassium 4.1 Chloride 104 Carbon Dioxide 27.4 Anion Gap 12 BUN 43 H Creatinine 1.84 H Estimated GFR 41 L Random Glucose 81 Calcium 8.7 - Procedures AURELIA Assessment and Plan - Assessment (1) Altered mental status Code(s): R41.82 - Altered mental status, unspecified Status: Acute (2) Endocarditis Code(s): I38 - Endocarditis, valve unspecified Status: Acute (3) Sepsis Code(s): A41.9 - Sepsis, unspecified organism Status: Acute (4) Hyponatremia Code(s): E87.1 - Hypo-osmolality and hyponatremia Status: Acute - Plan Patient is 30 years old male with history of IV drug use previous endocarditis, hepatitis C, who presented to the ED with acute psychosis and altered mental status. Severe sepsis / MSSA infective endocarditis/ Haemophilus influenza pneumonia. leukocytosis /diarrhea -Blood culture with GPC 4 staph aureus -repeat C-diff negative and repeated MRI lumbar spine with decreased size of posterior fluid collection -venous doppler of the left upper extremity with superficial phlebitis -ID following- . - continue IV antbx Cefazolin until 06/20/18 per ID recommendation -monitor CBC, WBC today improved 10.4 Acute metabolic encephalopathy- MS improved Multifocal bilateral punctate infarcts, probable septic emboli Polysubstance abuse with withdrawal -MRI brain shows Multifocal bilateral punctate infarcts, suspicious for embolic disease. -Neurology consult for embolic bilateral infarcts. Dr. Mike. Continue aspirin -Supplement multivitamin thiamine -PT OOB Pneumonia/septic emboli/Respiratory insufficiency-resolved -DuoNeb every 6 hours as needed -Sputum culture if available -CT chest shows bilateral infiltrates -ID following -cont IV antibiotics Cefazolin until 06/20/18 per ID Lactic acidosis NSTEMI/Infective endocarditis/Persistent tachycardia/Hypertension -AURELIA shows large mitral valve vegetation (05/03) -Continue aspirin - Avoid statins at this time due to hep C -Elevated troponin may be secondary to coronary artery septic emboli -Coreg discontinued, change Lopressor , increase dose to 50 mg po q8 for better rate and BP control Acute Kidney Injury/Hypocalcemia -Nephrology consulted -was on HD T-TH- Sat, finished HD for no per nephrology recommendation -monitor calcium level and replace as needed. - avoid nephrotoxins -continue monitor the renal function, creatinine improving 1.84 Hepatitis C -O/p f/u -Continue regular diet. Anemia- of chronic disease- - s/p PRBC transfusion on 05/25- H/H improved after transfusion- on Epogen - continue to monitor H/H. -add MVI Pain- history of IVDU - continue on methadone 5 mg daily, pain controlled -monitor response Left UE Thrombus Venous Doppler left UE: Occlusive superficial thrombus in the mid and distal portions of the cephalic vein. Deep venous system is patent. -elevate left UE -monitor DVT PROPH: -Bilateral lower extremity SCDs. Code Status: Full code Discussed Condition With: Patient and nursing (3) Sepsis Qualifiers: Sepsis type: sepsis due to unspecified organism Qualified Code(s): A41.9 - Sepsis, unspecified organism
[2018-06-01] MEDS: Oral Hygiene Kit OROPHARYNG SCH ×4 (00:40→17:46)
[2018-06-01] MEDS: ceFAZolin 2 GM Premix Inj 2 GM/50 ML PIGGYBACK IV.SIG SCH ×3 (01:14→18:16)
[2018-06-01] MEDS: Carboxymethylcellulose 0.5% Opth Drops 15 ML Bottle EACH EYE SCH ×3 (04:24→17:46)
[2018-06-01] MEDS: Sodium Chloride 0.9% 2 ML Flush BID IV.FLUSH SCH ×2 (08:43→20:53)
[2018-06-01] MEDS: Multivitamin/Minerals Therapeutic Tablet PO SCH (08:45)
[2018-06-01] MEDS: Methadone 10 MG Tablet PO SCH (08:45)
[2018-06-01] MEDS: Metoprolol Tartrate 50 MG Tablet PO SCH ×3 (08:45→18:16)
[2018-06-01] MEDS: Senna/Docusate Sodium 8.6/50 MG Tablet PO SCH ×2 (08:46→20:53)
--- NOTE | 2018-06-01 16:06 | P.PNIM ---
Subjective Interval history: Follow-up endocarditis, MSSA, AKA, anemia, left arm thrombus. Patient seen and examined sitting in the bed, patient stated feeling better, denies any chest pain or shortness of breath, denies any headache or dizziness, denies any fever or chills. Patient complained about the spots in his legs and his feet. Patient complains of tingling on his foot. Patient Physical Exam Vital signs: Vital Signs 05/31/18 17:41 05/31/18 20:00 06/01/18 00:00 Temperature 98 F 98.5 F Pulse Rate 88 116 H Respiratory Rate 18 18 Blood Pressure 137/76 124/78 Pulse Oximetry 98 98 97 06/01/18 04:00 06/01/18 08:00 06/01/18 12:00 Temperature 98.8 F 98 F 97.3 F L Pulse Rate 77 85 83 Respiratory Rate 16 18 18 Blood Pressure 134/89 143/91 H 132/73 Pulse Oximetry 96 95 96 06/01/18 12:29 Temperature Pulse Rate Respiratory Rate Blood Pressure Pulse Oximetry 98 Intake & Output 05/31/18 06/01/18 06/01/18 18:59 06:59 18:59 Intake Total 1010 / 1010 580 / 580 50 / 50 Output Total 1500 / 1500 1000 / 1000 Balance -490 / -490 -420 / -420 50 / 50 Weight 77.3 kg Intake: IV 50 / 50 100 / 100 50 / 50 Ancef 2 GM Premix Inj 2 gm In 50 / 50 100 / 100 50 / 50 50 ml @ 100 mls/hr IV.SIG Q8H [facility] Rx#:[id number] Oral 960 / 960 480 / 480 Output: Urine 1500 / 1500 1000 / 1000 Other: Date of Last Bowel Movement 05/29/18 05/29/18 Narrative: GENERAL: Well-developed, well-nourished, alert and oriented x3, with no apparent distress. SKIN: Warm and dry. tattoos on lower leg, chest and back. Extra dry skin, peeling on bilateral foot HEAD: Atraumatic. Normocephalic. EYES: Pupils equal and round. No scleral icterus. No injection or drainage. ENT: No nasal bleeding or discharge. Mucous membranes pink and moist. NECK: Trachea midline. No JVD. CARDIOVASCULAR: Regular rate and rhythm. RESPIRATORY: No accessory muscle use. Clear to auscultation. Breath sounds equal bilaterally. GASTROINTESTINAL: Abdomen soft, non-tender, nondistended. Hepatic and splenic margins not palpable. MUSCULOSKELETAL: Extremities without clubbing, cyanosis. No obvious deformities. left arm edema improving NEUROLOGICAL: Awake and alert. No obvious cranial nerve deficits. Motor grossly within normal limits. Generalized weakness. Normal speech. PSYCHIATRIC: Appropriate mood and affect; insight and judgment normal. - Urinary Catheter Management Condom Cath placed during this visit: no Indwelling Urethral Catheter Cath placed during this visit: yes, but has since been removed by the nurse Reason for continuing: Decision to DC catheter Insertion date: 05/06/18 Insertion time: 16:40 Removal date: 05/14/18 Removal time: 08:00 Results - Labs CBC & Chem 7: 05/31/18 12:57 05/31/18 12:57 - Procedures AURELIA Assessment and Plan - Assessment (1) Altered mental status Code(s): R41.82 - Altered mental status, unspecified Status: Acute (2) Endocarditis Code(s): I38 - Endocarditis, valve unspecified Status: Acute (3) Sepsis Code(s): A41.9 - Sepsis, unspecified organism Status: Acute (4) Hyponatremia Code(s): E87.1 - Hypo-osmolality and hyponatremia Status: Acute - Plan Patient is 30 years old male with history of IV drug use previous endocarditis, hepatitis C, who presented to the ED with acute psychosis and altered mental status. Severe sepsis / MSSA infective endocarditis/ Haemophilus influenza pneumonia. leukocytosis /diarrhea -Blood culture with GPC 4 staph aureus -repeat C-diff negative and repeated MRI lumbar spine with decreased size of posterior fluid collection -venous doppler of the left upper extremity with superficial phlebitis -ID following- . - continue IV antbx Cefazolin until 06/20/18 per ID recommendation -monitor CBC, WBC improved 10.4 Acute metabolic encephalopathy- MS improved Multifocal bilateral punctate infarcts, probable septic emboli Polysubstance abuse with withdrawal -MRI brain shows Multifocal bilateral punctate infarcts, suspicious for embolic disease. -Neurology consult for embolic bilateral infarcts. Dr. Mike. Continue aspirin -Supplement multivitamin thiamine -PT OOB Pneumonia/septic emboli/Respiratory insufficiency-resolved -DuoNeb every 6 hours as needed -Sputum culture if available -CT chest shows bilateral infiltrates -ID following -cont IV antibiotics Cefazolin until 06/20/18 per ID Lactic acidosis NSTEMI/Infective endocarditis/Persistent tachycardia/Hypertension -AURELIA shows large mitral valve vegetation (05/03) -Continue aspirin - Avoid statins at this time due to hep C -Elevated troponin may be secondary to coronary artery septic emboli -Coreg discontinued, change Lopressor , increase dose to 50 mg po q8 for better rate and BP control Acute Kidney Injury/Hypocalcemia -Nephrology consulted -was on HD T-TH- Sat, finished HD for no per nephrology recommendation -monitor calcium level and replace as needed. - avoid nephrotoxins -continue monitor the renal function, creatinine improving 1.84 Hepatitis C -O/p f/u -Continue regular diet. Anemia- of chronic disease- - s/p PRBC transfusion on 05/25- H/H improved after transfusion- on Epogen - continue to monitor H/H. -add MVI Pain- history of IVDU - continue on methadone 5 mg daily, pain controlled -monitor response Left UE Thrombus Venous Doppler left UE: Occlusive superficial thrombus in the mid and distal portions of the cephalic vein. Deep venous system is patent. -elevate left UE -monitor Bilateral foot/extra dry skin -soak in luke warm water -apply petroleum jelly -moisturize DVT PROPH: increase ambulation -Bilateral lower extremity SCDs. Code Status: full code Discussed Condition With: patient and nurse Discharge Planning: Plan for discharge when cleared with ID and antibiotic treatment finished, tentative Jun 20, 2018 (3) Sepsis Qualifiers: Sepsis type: sepsis due to unspecified organism Qualified Code(s): A41.9 - Sepsis, unspecified organism
[2018-06-02] MEDS: Carboxymethylcellulose 0.5% Opth Drops 15 ML Bottle EACH EYE SCH ×5 (00:27→23:05)
[2018-06-02] MEDS: Oral Hygiene Kit OROPHARYNG SCH ×4 (00:28→15:31)
[2018-06-02] MEDS: ceFAZolin 2 GM Premix Inj 2 GM/50 ML PIGGYBACK IV.SIG SCH ×3 (01:30→18:20)
[2018-06-02] MEDS: Multivitamin/Minerals Therapeutic Tablet PO SCH (09:29)
[2018-06-02] MEDS: Methadone 10 MG Tablet PO SCH (09:30)
[2018-06-02] MEDS: Senna/Docusate Sodium 8.6/50 MG Tablet PO SCH ×2 (09:30→23:05)
[2018-06-02] MEDS: Sodium Chloride 0.9% 2 ML Flush BID IV.FLUSH SCH ×2 (09:32→23:05)
[2018-06-02] MEDS: Metoprolol Tartrate 50 MG Tablet PO SCH ×3 (09:36→18:20)
[2018-06-02 11:36] LABS: Carbon Dioxide 23.7 meq/L (21.0-32.0); Potassium 3.9 meq/L (3.5-5.1)
--- NOTE | 2018-06-02 11:52 | P.PNIM ---
Subjective Interval history: Follow-up endocarditis, MSSA, AKA, anemia, left arm thrombus. Patient is awake alert and oriented x3, sitting in his bed, seen and examined. Patient denies any pain or shortness of breath, denies any headache or dizziness. Patient stated he is feeling better. Complained about his feet and I am unable to get the cream. Patient denies any fever or chills, denies any abdominal pain, nausea, vomiting, diarrhea or constipation. Patient asks again about his antibiotic treatment and what to do next, explains he need to be on IV antibiotic until June 20. And will be discharged with oral antibiotics after that. Patient verbalized understanding Physical Exam Vital signs: Vital Signs 06/01/18 12:00 06/01/18 12:29 06/01/18 16:00 Temperature 97.3 F L 97.8 F Pulse Rate 83 82 Respiratory Rate 18 20 Blood Pressure 132/73 134/87 Pulse Oximetry 96 98 96 06/01/18 20:00 06/01/18 20:15 06/02/18 00:00 Temperature 98.4 F 98.3 F Pulse Rate 79 74 Respiratory Rate 16 16 14 Blood Pressure 134/89 134/74 Pulse Oximetry 95 97 06/02/18 04:00 06/02/18 08:00 Temperature 97.6 F 98.3 F Pulse Rate 69 74 Respiratory Rate 14 18 Blood Pressure 122/78 147/92 H Pulse Oximetry 98 98 Intake & Output 06/01/18 06/02/18 06/02/18 18:59 06:59 18:59 Intake Total 960 / 960 535 / 535 55 / 55 Output Total 1300 / 1300 1650 / 1650 Balance -340 / -340 -1115 / -1115 55 / 55 Weight 75.5 kg Intake: IV 100 / 100 55 / 55 55 / 55 Ancef 2 GM Premix Inj 2 gm In 100 / 100 55 / 55 55 / 55 50 ml @ 100 mls/hr IV.SIG Q8H [facility] Rx#:[id number] Oral 860 / 860 480 / 480 Output: Urine 1650 / 1650 Urine Amount (Catheter) 1300 / 1300 Condom 1300 / 1300 Narrative: GENERAL: Well-developed, well-nourished, alert and oriented x3, with no apparent distress. SKIN: Warm and dry. tattoos on lower leg, chest and back. Extra dry skin, peeling on bilateral foot with multiple skin discoloration HEAD: Atraumatic. Normocephalic. EYES: Pupils equal and round. No scleral icterus. No injection or drainage. ENT: No nasal bleeding or discharge. Mucous membranes pink and moist. NECK: Trachea midline. No JVD. CARDIOVASCULAR: Regular rate and rhythm. RESPIRATORY: No accessory muscle use. Clear to auscultation. Breath sounds equal bilaterally. GASTROINTESTINAL: Abdomen soft, non-tender, nondistended. Hepatic and splenic margins not palpable. MUSCULOSKELETAL: Extremities without clubbing, cyanosis. No obvious deformities. left arm edema improving NEUROLOGICAL: Awake and alert. No obvious cranial nerve deficits. Motor grossly within normal limits. Generalized weakness. Normal speech. PSYCHIATRIC: Appropriate mood and affect; insight and judgment normal. - Urinary Catheter Management Condom Cath placed during this visit: no Indwelling Urethral Catheter Cath placed during this visit: yes, but has since been removed by the nurse Reason for continuing: Decision to DC catheter Insertion date: 05/06/18 Insertion time: 16:40 Removal date: 05/14/18 Removal time: 08:00 Results - Labs CBC & Chem 7: 05/31/18 12:57 06/02/18 09:51 Laboratory Results - last 24 hr 06/02/18 09:51 Sodium 140 Potassium 3.9 Chloride 105 Carbon Dioxide 23.7 Anion Gap 11 BUN 34 H Creatinine 1.67 H Estimated GFR 46 L Random Glucose 95 Calcium 9.0 - Procedures AURELIA Assessment and Plan - Assessment (1) Altered mental status Code(s): R41.82 - Altered mental status, unspecified Status: Acute (2) Endocarditis Code(s): I38 - Endocarditis, valve unspecified Status: Acute (3) Sepsis Code(s): A41.9 - Sepsis, unspecified organism Status: Acute (4) Hyponatremia Code(s): E87.1 - Hypo-osmolality and hyponatremia Status: Acute - Plan Patient is 30 years old male with history of IV drug use previous endocarditis, hepatitis C, who presented to the ED with acute psychosis and altered mental status. Severe sepsis / MSSA infective endocarditis/ Haemophilus influenza pneumonia. leukocytosis, diarrhea resolved -Blood culture with GPC 4 staph aureus on 05/02/18, 05/20 Blood Cx no growth x 5 days -repeat C-diff negative and repeated MRI lumbar spine with decreased size of posterior fluid collection -venous doppler of the left upper extremity with superficial phlebitis -ID following- . 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 -Neurology consult for embolic bilateral infarcts. Dr. Mike. Continue aspirin -Supplement multivitamin thiamine -PT OOB Pneumonia/septic emboli/ Respiratory insufficiency-resolved -DuoNeb every 6 hours as needed -Sputum culture 05/09 H Influenzae -CT chest shows bilateral infiltrates -ID following -cont IV antibiotics Cefazolin until 06/20/18 per ID Lactic acidosis NSTEMI/Infective endocarditis/Persistent tachycardia/Hypertension -AURELIA shows large mitral valve vegetation (05/03) -Continue aspirin - Avoid statins at this time due to hep C -Elevated troponin may be secondary to coronary artery septic emboli -continue Lopressor , better rate and BP control Acute Kidney Injury/Hypocalcemia -Nephrology consulted -was on HD T-TH- Sat, finished HD for no per nephrology recommendation -monitor calcium level and replace as needed. - avoid nephrotoxins -continue monitor the renal function, creatinine improving 1.67 today Hepatitis C -O/p f/u -Continue regular diet. Anemia- of chronic disease- - s/p PRBC transfusion on 05/25- H/H improved after transfusion- on Epogen - continue to monitor H/H 8.4/25.3 today -add MVI, monitor CBC Pain- history of IVDU - continue on methadone 5 mg daily, pain controlled -monitor response Left UE Thrombus Venous Doppler left UE: Occlusive superficial thrombus in the mid and distal portions of the cephalic vein. Deep venous system is patent. -elevate left UE -monitor Bilateral foot/extra dry skin -soak in luke warm water -apply petroleum jelly -keep skin moisturized DVT PROPH: increase ambulation -Bilateral lower extremity SCDs. Code Status: full code Discussed Condition With: patient and nurse Discharge Planning: Plan for discharge when cleared with ID and antibiotic treatment finished, tentative Jun 20, 2018 (3) Sepsis Qualifiers: Sepsis type: sepsis due to unspecified organism Qualified Code(s): A41.9 - Sepsis, unspecified organism
[2018-06-02] MEDS ORDERED: Petrolatum Oint 30 GM Tube TOPICAL PRN (13:35)
[2018-06-03] MEDS: Oral Hygiene Kit OROPHARYNG SCH ×4 (00:37→16:17)
[2018-06-03] MEDS: ceFAZolin 2 GM Premix Inj 2 GM/50 ML PIGGYBACK IV.SIG SCH ×3 (03:18→17:38)
[2018-06-03] MEDS: Carboxymethylcellulose 0.5% Opth Drops 15 ML Bottle EACH EYE SCH ×3 (05:47→16:17)
[2018-06-03] MEDS: Methadone 10 MG Tablet PO SCH (08:10)
[2018-06-03] MEDS: Metoprolol Tartrate 50 MG Tablet PO SCH ×3 (08:11→17:38)
[2018-06-03] MEDS: Multivitamin/Minerals Therapeutic Tablet PO SCH (08:11)
[2018-06-03] MEDS: Sodium Chloride 0.9% 2 ML Flush BID IV.FLUSH SCH ×2 (08:12→20:49)
[2018-06-03] MEDS: Senna/Docusate Sodium 8.6/50 MG Tablet PO SCH ×2 (08:16→20:49)
--- NOTE | 2018-06-03 12:22 | P.PNIM ---
Subjective Interval history: Follow-up endocarditis, MSSA, AKA, anemia, left arm thrombus. Patient seen and examined awake and alert oriented sitting in his bed, family at bedside. Patient complained about lower back pain and nausea. Patient just had a Tylenol and Zofran. Patient denies any vomiting. Patient denies any headache or dizziness, denies any fever or chills, denies diarrhea or constipation. Family was at bedside identified him as his father, address concern about his medications, antibiotic, and his dialysis. Answers questions and concerns. Patient also encouraged to use the urinal instead of the condom cath, encouraged to use the bathroom and out of bed. Discussed to cooperate with PT and OT. Patient verbalized understanding. Nurse addressed patients concern on pain medication, asking for a stronger pain medication. Physical Exam Vital signs: Vital Signs 06/02/18 12:59 06/02/18 16:00 06/02/18 20:00 Temperature 98.3 F 98.2 F Pulse Rate 78 79 Respiratory Rate 20 20 Blood Pressure 119/74 175/97 H Pulse Oximetry 96 96 97 06/03/18 00:00 06/03/18 04:00 06/03/18 08:00 Temperature 98.4 F 98.0 F 98.1 F Pulse Rate 71 76 74 Respiratory Rate 18 18 20 Blood Pressure 124/81 131/82 143/99 H Pulse Oximetry 97 97 96 06/03/18 10:37 06/03/18 12:00 Temperature 98.7 F Pulse Rate 77 Respiratory Rate 20 Blood Pressure 120/74 Pulse Oximetry 95 98 Intake & Output 06/02/18 06/03/18 06/03/18 18:59 06:59 18:59 Intake Total 875 / 875 1070 / 1070 50 / 50 Output Total 1700 / 1700 2700 / 2700 Balance -825 / -825 -1630 / -1630 50 / 50 Weight 74.8 kg Intake: IV 55 / 55 110 / 110 50 / 50 Ancef 2 GM Premix Inj 2 gm In 55 / 55 110 / 110 50 / 50 50 ml @ 100 mls/hr IV.SIG Q8H [facility] Rx#:[id number] Oral 720 / 720 960 / 960 Other 100 / 100 Output: Urine 1700 / 1700 2700 / 2700 Other: Date of Last Bowel Movement 05/29/18 06/03/18 Narrative: GENERAL: Well-developed, well-nourished, alert and oriented x3, with no apparent distress. SKIN: Warm and dry. tattoos on lower leg, chest and back. Extra dry skin, peeling on bilateral foot with multiple skin discoloration, left fifth toe with necrotic area HEAD: Atraumatic. Normocephalic. EYES: Pupils equal and round. No scleral icterus. No injection or drainage. ENT: No nasal bleeding or discharge. Mucous membranes pink and moist. NECK: Trachea midline. No JVD. CARDIOVASCULAR: Regular rate and rhythm. RESPIRATORY: No accessory muscle use. Clear to auscultation. Breath sounds equal bilaterally. GASTROINTESTINAL: Abdomen soft, non-tender, nondistended. Hepatic and splenic margins not palpable. MUSCULOSKELETAL: Extremities without clubbing, cyanosis. No obvious deformities. left arm edema improving NEUROLOGICAL: Awake and alert. No obvious cranial nerve deficits. Motor grossly within normal limits. Generalized weakness, moving all 4 extremities. Normal speech. PSYCHIATRIC: Appropriate mood and affect; insight and judgment normal, cooperative. - Urinary Catheter Management Condom Cath placed during this visit: no Indwelling Urethral Catheter Cath placed during this visit: yes, but has since been removed by the nurse Reason for continuing: Decision to DC catheter Insertion date: 05/06/18 Insertion time: 16:40 Removal date: 05/14/18 Removal time: 08:00 Results - Labs CBC & Chem 7: 05/31/18 12:57 06/02/18 09:51 - Procedures AURELIA Assessment and Plan - Assessment (1) Altered mental status Code(s): R41.82 - Altered mental status, unspecified Status: Acute (2) Endocarditis Code(s): I38 - Endocarditis, valve unspecified Status: Acute (3) Sepsis Code(s): A41.9 - Sepsis, unspecified organism Status: Acute (4) Hyponatremia Code(s): E87.1 - Hypo-osmolality and hyponatremia Status: Acute - Plan Patient is 30 years old male with history of IV drug use previous endocarditis, hepatitis C, who presented to the ED with acute psychosis and altered mental status. Severe sepsis / MSSA infective endocarditis/ Haemophilus influenza pneumonia. leukocytosis, diarrhea resolved -Blood culture with GPC 4 staph aureus on 05/02/18, 05/20 Blood Cx no growth x 5 days -repeat C-diff negative and repeated MRI lumbar spine with decreased size of posterior fluid collection -venous doppler of the left upper extremity with superficial phlebitis -ID following- . 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 -Neurology consult for embolic bilateral infarcts. Dr. Mike. -Continue aspirin -Continue supplement multivitamin thiamine -PT/OT eval and treat, out of bed Pneumonia/septic emboli/ Respiratory insufficiency-resolved -DuoNeb every 6 hours as needed -Sputum culture 05/09 H Influenzae -CT chest shows bilateral infiltrates -ID following -cont IV antibiotics Cefazolin until 06/20/18 per ID Lactic acidosis NSTEMI/Infective endocarditis/Persistent tachycardia/Hypertension -AURELIA shows large mitral valve vegetation (05/03) -Continue aspirin - Avoid statins at this time due to hep C -Elevated troponin may be secondary to coronary artery septic emboli -continue Lopressor , better rate and BP control Acute Kidney Injury/Hypocalcemia -Nephrology consulted - S/P HD T-TH- Sat, finished HD per nephrology recommendation -monitor calcium level and replace as needed. - avoid nephrotoxins -continue monitor the renal function, creatinine improving 1.67 today Hepatitis C -O/p f/u -Continue regular diet. Anemia- of chronic disease- - s/p PRBC transfusion on 05/25- H/H improved after transfusion- on Epogen - continue to monitor H/H 8.4/25.3 today -add MVI, monitor CBC Pain- history of IVDU - continue on methadone 5 mg daily, pain controlled -monitor response Left UE Thrombus Venous Doppler left UE: Occlusive superficial thrombus in the mid and distal portions of the cephalic vein. Deep venous system is patent. -elevate left UE -monitor Bilateral foot/extra dry skin -soak in luke warm water -apply petroleum jelly -keep skin moisturized DVT PROPH: increase ambulation -Bilateral lower extremity SCDs. Code Status: Full code Discussed Condition With: Patient and nursing Discharge Planning: Plan for discharge when cleared with ID and antibiotic treatment finished, tentative Jun 20, 2018 (3) Sepsis Qualifiers: Sepsis type: sepsis due to unspecified organism Qualified Code(s): A41.9 - Sepsis, unspecified organism
[2018-06-03] MEDS: Acetaminophen 325 MG Tablet PO PRN ×2 (14:41→20:48)
[2018-06-03] MEDS: Famotidine 20 MG Tablet PO SCH (20:48)
[2018-06-04] MEDS: Oral Hygiene Kit OROPHARYNG SCH ×4 (00:03→16:40)
[2018-06-04] MEDS: Carboxymethylcellulose 0.5% Opth Drops 15 ML Bottle EACH EYE SCH ×5 (00:03→21:44)
[2018-06-04] MEDS: ceFAZolin 2 GM Premix Inj 2 GM/50 ML PIGGYBACK IV.SIG SCH ×3 (02:17→17:40)
[2018-06-04] MEDS: Acetaminophen 325 MG Tablet PO PRN ×3 (02:18→18:48)
[2018-06-04] MEDS: Sodium Chloride 0.9% 2 ML Flush PRN IV.FLUSH (02:18)
[2018-06-04 06:28] LABS: Carbon Dioxide 22.8 meq/L (21.0-32.0); Potassium 3.8 meq/L (3.5-5.1)
[2018-06-04] MEDS: Multivitamin/Minerals Therapeutic Tablet PO SCH (09:26)
[2018-06-04] MEDS: Famotidine 20 MG Tablet PO SCH ×2 (09:26→21:46)
[2018-06-04] MEDS: Metoprolol Tartrate 50 MG Tablet PO SCH ×3 (09:27→17:40)
[2018-06-04] MEDS: Methadone 10 MG Tablet PO SCH (09:27)
[2018-06-04] MEDS: Senna/Docusate Sodium 8.6/50 MG Tablet PO SCH ×2 (09:27→21:44)
[2018-06-04] MEDS: Sodium Chloride 0.9% 2 ML Flush BID IV.FLUSH SCH ×2 (09:28→21:45)
--- NOTE | 2018-06-04 13:29 | P.PNIM ---
Subjective Interval history: 06-03 Follow-up endocarditis, MSSA, AKA, anemia, left arm thrombus. Patient seen and examined awake and alert oriented sitting in his bed, family at bedside. Patient complained about lower back pain and nausea. Patient just had a Tylenol and Zofran. Patient denies any vomiting. Patient denies any headache or dizziness, denies any fever or chills, denies diarrhea or constipation. Family was at bedside identified him as his father, address concern about his medications, antibiotic, and his dialysis. Answers questions and concerns. Patient also encouraged to use the urinal instead of the condom cath, encouraged to use the bathroom and out of bed. Discussed to cooperate with PT and OT. Patient verbalized understanding. Nurse addressed patients concern on pain medication, asking for a stronger pain medication. 06-04 HD CATH IS OUT WANTS TO SHOWER DW RN AND PT AND CM CONTINUE ANTIBIOTICS AM LABS INCREASE ACTIVITY Physical Exam Vital signs: Vital Signs 06/03/18 16:00 06/03/18 20:00 06/04/18 00:00 Temperature 98.2 F 97.6 F 98.0 F Pulse Rate 75 72 78 Respiratory Rate 20 18 20 Blood Pressure 125/80 139/86 139/86 Pulse Oximetry 97 97 97 06/04/18 04:00 06/04/18 08:00 06/04/18 12:00 Temperature 97.5 F L 98.3 F 97.9 F Pulse Rate 64 75 79 Respiratory Rate 18 17 17 Blood Pressure 114/68 138/94 H 127/81 Pulse Oximetry 95 94 L 94 L Intake & Output 06/03/18 06/04/18 06/04/18 18:59 06:59 18:59 Intake Total 820 / 820 50 / 50 50 / 50 Output Total 1000 / 1000 2099 / 2099 Balance -180 / -180 -2049 / -2049 50 / 50 Weight 74.1 kg Intake: IV 100 / 100 50 / 50 50 / 50 Ancef 2 GM Premix Inj 2 gm In 100 / 100 50 / 50 50 / 50 50 ml @ 100 mls/hr IV.SIG Q8H [facility] Rx#:[id number] Oral 720 / 720 Output: Urine 1000 / 1000 300 / 300 Urine Amount (Catheter) 1800 / 1800 Condom 1800 / 1800 Other: Date of Last Bowel Movement 06/03/18 06/01/18 06/03/18 Narrative: GENERAL: Well-developed, well-nourished, alert and oriented x3, with no apparent distress. SKIN: Warm and dry. tattoos on lower leg, chest and back. Extra dry skin, peeling on bilateral foot with multiple skin discoloration, left fifth toe with necrotic area HEAD: Atraumatic. Normocephalic. EYES: Pupils equal and round. No scleral icterus. No injection or drainage. ENT: No nasal bleeding or discharge. Mucous membranes pink and moist. NECK: Trachea midline. No JVD. CARDIOVASCULAR: Regular rate and rhythm. S1, S2 NO S3 OR S4 RESPIRATORY: No accessory muscle use. Clear to auscultation. Breath sounds equal bilaterally. GASTROINTESTINAL: Abdomen soft, non-tender, nondistended. Hepatic and splenic margins not palpable. MUSCULOSKELETAL: Extremities without clubbing, cyanosis. No obvious deformities. left arm edema improving NEUROLOGICAL: Awake and alert. No obvious cranial nerve deficits. Motor grossly within normal limits. Generalized weakness, moving all 4 extremities. Normal speech. PSYCHIATRIC: Appropriate mood and affect; insight and judgment normal, cooperative. - Urinary Catheter Management Condom Cath placed during this visit: no Indwelling Urethral Catheter Cath placed during this visit: yes, but has since been removed by the nurse Reason for continuing: Decision to DC catheter Insertion date: 05/06/18 Insertion time: 16:40 Removal date: 05/14/18 Removal time: 08:00 Results - Labs CBC & Chem 7: 05/31/18 12:57 06/04/18 04:42 Laboratory Results - last 24 hr 06/04/18 04:42 Sodium 138 Potassium 3.8 Chloride 103 Carbon Dioxide 22.8 Anion Gap 12 BUN 32 H Creatinine 1.74 H Estimated GFR 44 L Random Glucose 83 Calcium 9.0 - Imaging ITS Impressions Chest CT 04/30/18 00:00 CONCLUSION: 1. Parenchymal process bilaterally most likely inflammatory and pneumonia. Head MRI 05/01/18 00:00 CONCLUSION: 1. Multifocal bilateral punctate infarcts, suspicious for embolic disease. 2. No midline shift or mass effect. Thoracic Spine MRI 05/06/18 00:00 CONCLUSION: 1. Negative thoracic MRI with no evidence of osteomyelitis or discitis. 2. Please see lumbar spine MRI for further details on findings in this region. Head CT 05/06/18 15:42 CONCLUSION: 1. No acute hemorrhage or mass effect. 2. The small bilateral known punctate infarcts seen on the MRI are not distinctly visualized. 3. Mucosal thickening in the ethmoidal air cells, sphenoid sinus and both maxillary sinuses. Abdomen/Bladder Ultrasound 05/08/18 00:00 CONCLUSION: 1. Trace perinephric fluid surrounding the right kidney. 2. Small right pleural effusion. 3. Otherwise normal sonographic appearance of the kidneys without evidence of hydronephrosis. Chest X-Ray 05/12/18 05:00 CONCLUSION: 1. Stable tubes and lines, as above. 2. Significantly improved diffuse patchy bilateral interstitial and alveolar opacities. Abdomen/Pelvis CT 05/23/18 00:00 CONCLUSION: 1. New moderate-sized area of left lower lobe atelectasis. 2. New small pericardial effusion. 3. New mild superficial soft tissue edema of the lateral anterior abdominal wall bilaterally. 4. Splenic infarct again noted. 5. Perinephric stranding again noted bilaterally. Lumbar Spine MRI 05/24/18 00:00 CONCLUSION: 1. Subcutaneous fluid as described above. This is decreased since prior of 04/2018. 2. No significant disc protrusion identified. No abnormal marrow signal seen within the vertebral bodies. Venous Doppler Study 05/24/18 00:00 CONCLUSION: 1. Occlusive superficial thrombus in the mid and distal portions of the cephalic vein. Deep venous system is patent. - Procedures AURELIA Assessment and Plan - Assessment (1) Altered mental status Code(s): R41.82 - Altered mental status, unspecified Status: Acute (2) Endocarditis Code(s): I38 - Endocarditis, valve unspecified Status: Acute (3) Sepsis Code(s): A41.9 - Sepsis, unspecified organism Status: Acute (4) Hyponatremia Code(s): E87.1 - Hypo-osmolality and hyponatremia Status: Acute - Plan Patient is 30 years old male with history of IV drug use previous endocarditis, hepatitis C, who presented to the ED with acute psychosis and altered mental status. Severe sepsis / MSSA infective endocarditis/ Haemophilus influenza pneumonia. leukocytosis, diarrhea resolved -Blood culture with GPC 4 staph aureus on 05/02/18, 05/20 Blood Cx no growth x 5 days -repeat C-diff negative and repeated MRI lumbar spine with decreased size of posterior fluid collection -venous doppler of the left upper extremity with superficial phlebitis -ID following- . 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 -Neurology consult for embolic bilateral infarcts. Dr. Mike. -Continue aspirin -Continue supplement multivitamin thiamine -PT/OT eval and treat, out of bed Pneumonia/septic emboli/ Respiratory insufficiency-resolved -DuoNeb every 6 hours as needed -Sputum culture 05/09 H Influenzae -CT chest shows bilateral infiltrates -ID following -cont IV antibiotics Cefazolin until 06/20/18 per ID Lactic acidosis NSTEMI/Infective endocarditis/Persistent tachycardia/Hypertension -AURELIA shows large mitral valve vegetation (05/03) -Continue aspirin - Avoid statins at this time due to hep C -Elevated troponin may be secondary to coronary artery septic emboli -continue Lopressor , better rate and BP control Acute Kidney Injury/Hypocalcemia -Nephrology consulted - S/P HD T-TH- Sat, finished HD per nephrology recommendation -monitor calcium level and replace as needed. - avoid nephrotoxins -continue monitor the renal function, creatinine improving 1.67 today OFF HD - CATHETER REMOVED Hepatitis C -O/p f/u -Continue regular diet. Anemia- of chronic disease- - s/p PRBC transfusion on 05/25- H/H improved after transfusion- on Epogen - continue to monitor H/H 8.4/25.3 today -add MVI, monitor CBC Pain- history of IVDU - continue on methadone 5 mg daily, pain controlled -monitor response Left UE Thrombus Venous Doppler left UE: Occlusive superficial thrombus in the mid and distal portions of the cephalic vein. Deep venous system is patent. -elevate left UE -monitor Bilateral foot/extra dry skin -soak in luke warm water -apply petroleum jelly -keep skin moisturized DVT PROPH: increase ambulation -Bilateral lower extremity SCDs. Code Status: Full code Discussed Condition With: Patient and nursing Discharge Planning: Plan for discharge when cleared with ID and antibiotic treatment finished, tentative Jun 20, 2018 Code Status: FULL CODE Discussed Condition With: RN AND PT AND CM Discharge Planning: Plan for discharge when cleared with ID and antibiotic treatment finished, tentative Jun 20, 2018 (3) Sepsis Qualifiers: Sepsis type: sepsis due to unspecified organism Qualified Code(s): A41.9 - Sepsis, unspecified organism
[2018-06-05] MEDS: Oral Hygiene Kit OROPHARYNG SCH ×5 (01:09→23:35)
[2018-06-05] MEDS: Acetaminophen 325 MG Tablet PO PRN ×5 (01:17→21:45)
[2018-06-05] MEDS: ceFAZolin 2 GM Premix Inj 2 GM/50 ML PIGGYBACK IV.SIG SCH ×3 (01:20→18:13)
[2018-06-05] MEDS: Carboxymethylcellulose 0.5% Opth Drops 15 ML Bottle EACH EYE SCH ×4 (04:49→21:47)
[2018-06-05] MEDS: Famotidine 20 MG Tablet PO SCH ×2 (08:51→21:44)
[2018-06-05] MEDS: Multivitamin/Minerals Therapeutic Tablet PO SCH (08:52)
[2018-06-05] MEDS: Metoprolol Tartrate 50 MG Tablet PO SCH ×3 (08:52→18:13)
[2018-06-05] MEDS: Methadone 10 MG Tablet PO SCH (08:52)
[2018-06-05] MEDS: Senna/Docusate Sodium 8.6/50 MG Tablet PO SCH ×2 (08:52→21:47)
[2018-06-05] MEDS: Sodium Chloride 0.9% 2 ML Flush BID IV.FLUSH SCH ×2 (08:52→21:46)
--- NOTE | 2018-06-05 11:54 | P.PNIM ---
Subjective Interval history: 10 Follow-up endocarditis, MSSA, AKA, anemia, left arm thrombus. Patient seen and examined awake and alert oriented sitting in his bed, family at bedside. Patient complained about lower back pain and nausea. Patient just had a Tylenol and Zofran. Patient denies any vomiting. Patient denies any headache or dizziness, denies any fever or chills, denies diarrhea or constipation. Family was at bedside identified him as his father, address concern about his medications, antibiotic, and his dialysis. Answers questions and concerns. Patient also encouraged to use the urinal instead of the condom cath, encouraged to use the bathroom and out of bed. Discussed to cooperate with PT and OT. Patient verbalized understanding. Nurse addressed patients concern on pain medication, asking for a stronger pain medication. 06-04 HD CATH IS OUT WANTS TO SHOWER RUBY RN AND PT AND CM CONTINUE ANTIBIOTICS AM LABS INCREASE ACTIVITY 06-05 PATIENT HAD CHEST PAIN AFTER WORKING WITH PHYSICAL THERAPY WILL GET TROPONINS AND CE AND EKGS AND A CHEST XRAY NOW WILL TREND TROPONINS RUBY RN AND PT AND CM CONTINUE ANTIBIOTICS PER ID ALSO ASKING FOR MORE NARCOTICS Physical Exam Vital signs: Vital Signs 06/04/18 12:00 06/04/18 16:00 06/04/18 19:45 Temperature 97.9 F 97.7 F Pulse Rate 79 71 80 Respiratory Rate 17 17 Blood Pressure 127/81 109/63 Pulse Oximetry 94 L 17 L 06/04/18 20:00 06/04/18 20:30 06/05/18 00:00 Temperature 97.9 F 99.2 F Pulse Rate 80 74 Respiratory Rate 20 14 18 Blood Pressure 121/81 128/87 Pulse Oximetry 96 97 06/05/18 04:00 06/05/18 08:00 Temperature 97.3 F L 97.4 F L Pulse Rate 67 72 Respiratory Rate 18 18 Blood Pressure 127/89 138/89 Pulse Oximetry 98 97 Intake & Output 06/04/18 06/05/18 06/05/18 18:59 06:59 18:59 Intake Total 820 / 820 690 / 690 Output Total 1200 / 1200 600 / 600 Balance -380 / -380 90 / 90 Intake: IV 100 / 100 60 / 60 Ancef 2 GM Premix Inj 2 gm In 100 / 100 60 / 60 50 ml @ 100 mls/hr IV.SIG Q8H STEFFANIE Rx#:[id number] Oral 720 / 720 630 / 630 Output: Urine 1200 / 1200 600 / 600 Other: Date of Last Bowel Movement 06/03/18 06/03/18 # Bowel Movements 0 Narrative: GENERAL: Well-developed, well-nourished, alert and oriented x3, with no apparent distress. SKIN: Warm and dry. tattoos on lower leg, chest and back. Extra dry skin, peeling on bilateral foot with multiple skin discoloration, left fifth toe with necrotic area HEAD: Atraumatic. Normocephalic. EYES: Pupils equal and round. No scleral icterus. No injection or drainage. ENT: No nasal bleeding or discharge. Mucous membranes pink and moist. NECK: Trachea midline. No JVD. CARDIOVASCULAR: Regular rate and rhythm. S1, S2 NO S3 OR S4 RESPIRATORY: No accessory muscle use. Clear to auscultation. Breath sounds equal bilaterally. GASTROINTESTINAL: Abdomen soft, non-tender, nondistended. Hepatic and splenic margins not palpable. MUSCULOSKELETAL: Extremities without clubbing, cyanosis. No obvious deformities. left arm edema improving NEUROLOGICAL: Awake and alert. No obvious cranial nerve deficits. Motor grossly within normal limits. Generalized weakness, moving all 4 extremities. Normal speech. PSYCHIATRIC: Appropriate mood and affect; insight and judgment normal, cooperative. - Urinary Catheter Management Condom Cath placed during this visit: no Indwelling Urethral Catheter Cath placed during this visit: yes, but has since been removed by the nurse Reason for continuing: Decision to DC catheter Insertion date: 05/06/18 Insertion time: 16:40 Removal date: 05/14/18 Removal time: 08:00 Results - Labs CBC & Chem 7: 05/31/18 12:57 06/04/18 04:42 - Procedures AURELIA Assessment and Plan - Assessment (1) Altered mental status Code(s): R41.82 - Altered mental status, unspecified Status: Acute (2) Endocarditis Code(s): I38 - Endocarditis, valve unspecified Status: Acute (3) Sepsis Code(s): A41.9 - Sepsis, unspecified organism Status: Acute (4) Hyponatremia Code(s): E87.1 - Hypo-osmolality and hyponatremia Status: Acute - Plan Patient is 30 years old male with history of IV drug use previous endocarditis, hepatitis C, who presented to the ED with acute psychosis and altered mental status. CHEST PAIN 10-9 TREND TROPONINS AND CARDIAC ENZYMES AND NITRO AND CHEST XRAY Severe sepsis / MSSA infective endocarditis/ Haemophilus influenza pneumonia. leukocytosis, diarrhea resolved -Blood culture with GPC 4 staph aureus on 05/02/18, 05/20 Blood Cx no growth x 5 days -repeat C-diff negative and repeated MRI lumbar spine with decreased size of posterior fluid collection -venous doppler of the left upper extremity with superficial phlebitis -ID following- . 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 -Neurology consult for embolic bilateral infarcts. Dr. Mike. -Continue aspirin -Continue supplement multivitamin thiamine -PT/OT eval and treat, out of bed Pneumonia/septic emboli/ Respiratory insufficiency-resolved -DuoNeb every 6 hours as needed -Sputum culture 05/09 H Influenzae -CT chest shows bilateral infiltrates -ID following -cont IV antibiotics Cefazolin until 06/20/18 per ID Lactic acidosis NSTEMI/Infective endocarditis/Persistent tachycardia/Hypertension -AURELIA shows large mitral valve vegetation (05/03) -Continue aspirin - Avoid statins at this time due to hep C -Elevated troponin may be secondary to coronary artery septic emboli -continue Lopressor , better rate and BP control Acute Kidney Injury/Hypocalcemia -Nephrology consulted - S/P HD T-TH- Sat, finished HD per nephrology recommendation -monitor calcium level and replace as needed. - avoid nephrotoxins -continue monitor the renal function, creatinine improving 1.67 today OFF HD - CATHETER REMOVED Hepatitis C -O/p f/u -Continue regular diet. Anemia- of chronic disease- - s/p PRBC transfusion on 05/25- H/H improved after transfusion- on Epogen - continue to monitor H/H 8.4/25.3 today -add MVI, monitor CBC Pain- history of IVDU - continue on methadone 5 mg daily, pain controlled -monitor response Left UE Thrombus Venous Doppler left UE: Occlusive superficial thrombus in the mid and distal portions of the cephalic vein. Deep venous system is patent. -elevate left UE -monitor Bilateral foot/extra dry skin -soak in luke warm water -apply petroleum jelly -keep skin moisturized DVT PROPH: increase ambulation -Bilateral lower extremity SCDs. Code Status: Full code Discussed Condition With: Patient and nursing Discharge Planning: Plan for discharge when cleared with ID and antibiotic treatment finished, tentative Jun 20, 2018 Code Status: FULL CODE Discussed Condition With: RN AND PT AND CM Discharge Planning: Plan for discharge when cleared with ID and antibiotic treatment finished, tentative Jun 20, 2018 (3) Sepsis Qualifiers: Sepsis type: sepsis due to unspecified organism Qualified Code(s): A41.9 - Sepsis, unspecified organism
--- NOTE | 2018-06-05 12:35 | XR ---
EXAM DATE: 06/05/2018 12:00 AM EDT AGE/SEX: 38 years / Male INDICATIONS: Chest pain. CLINICAL DATA: This is the patient's subsequent encounter. Patient reports that signs and symptoms h ave been present for 1 month and indicates a pain score of 7/10. MEDICAL/SURGICAL HISTORY: . Hepatitis C. IV Drug Abuse None. COMPARISON: [facility] [place], CHEST 1V SINGLE AP, 05/12/2018. . FINDINGS: A single AP view of the chest demonstrates the lungs to be symmetrically aerated without evidence of mass, infiltrate or effusion. The cardiomediastinal contours are unremarkable. Osseous structures a re intact. CONCLUSION: No acute intrathoracic disease. Electronically signed by: Osmar Ha MD 06/05/2018 12:34 PM EDT
--- NOTE | 2018-06-05 14:09 | P.PNID ---
Subjective Remarks: afebrile WBC going down and is now 10K resolved diarrhea HD stopped, Vascath d/c'd Antibiotics: ancef Past Medical History: IVDU Allergies/Adverse Reactions: Allergies No Known Allergies Allergy (Unknown, Uncoded 07/13/17 00:28) Objective Vital Signs 06/04/18 16:00 06/04/18 19:45 06/04/18 20:00 Temperature 97.7 F 97.9 F Pulse Rate 71 80 80 Respiratory Rate 17 20 Blood Pressure 109/63 121/81 Pulse Oximetry 17 L 96 06/04/18 20:30 06/05/18 00:00 06/05/18 04:00 Temperature 99.2 F 97.3 F L Pulse Rate 74 67 Respiratory Rate 14 18 18 Blood Pressure 128/87 127/89 Pulse Oximetry 97 98 06/05/18 08:00 06/05/18 12:00 Temperature 97.4 F L 97.2 F L Pulse Rate 69 87 Respiratory Rate 18 18 Blood Pressure 138/89 156/98 H Pulse Oximetry 97 98 Intake & Output 06/04/18 06/05/18 06/05/18 18:59 06:59 18:59 Intake Total 820 / 820 690 / 690 50 / 50 Output Total 1200 / 1200 600 / 600 Balance -380 / -380 90 / 90 50 / 50 Intake: IV 100 / 100 60 / 60 50 / 50 Ancef 2 GM Premix Inj 2 gm In 100 / 100 60 / 60 50 / 50 50 ml @ 100 mls/hr IV.SIG Q8H STEFFANIE Rx#:[id number] Oral 720 / 720 630 / 630 Output: Urine 1200 / 1200 600 / 600 Other: Date of Last Bowel Movement 06/03/18 06/03/18 # Bowel Movements 0 Lab - Chemistry Results 06/04/18 04:42 Sodium 138 Potassium 3.8 Chloride 103 Carbon Dioxide 22.8 Anion Gap 12 BUN 32 H Creatinine 1.74 H Estimated GFR 44 L Random Glucose 83 Calcium 9.0 Imaging: ITS Impressions Chest CT 04/30/18 00:00 CONCLUSION: 1. Parenchymal process bilaterally most likely inflammatory and pneumonia. Head MRI 05/01/18 00:00 CONCLUSION: 1. Multifocal bilateral punctate infarcts, suspicious for embolic disease. 2. No midline shift or mass effect. Thoracic Spine MRI 05/06/18 00:00 CONCLUSION: 1. Negative thoracic MRI with no evidence of osteomyelitis or discitis. 2. Please see lumbar spine MRI for further details on findings in this region. Head CT 05/06/18 15:42 CONCLUSION: 1. No acute hemorrhage or mass effect. 2. The small bilateral known punctate infarcts seen on the MRI are not distinctly visualized. 3. Mucosal thickening in the ethmoidal air cells, sphenoid sinus and both maxillary sinuses. Abdomen/Bladder Ultrasound 05/08/18 00:00 CONCLUSION: 1. Trace perinephric fluid surrounding the right kidney. 2. Small right pleural effusion. 3. Otherwise normal sonographic appearance of the kidneys without evidence of hydronephrosis. Abdomen/Pelvis CT 05/23/18 00:00 CONCLUSION: 1. New moderate-sized area of left lower lobe atelectasis. 2. New small pericardial effusion. 3. New mild superficial soft tissue edema of the lateral anterior abdominal wall bilaterally. 4. Splenic infarct again noted. 5. Perinephric stranding again noted bilaterally. Lumbar Spine MRI 05/24/18 00:00 CONCLUSION: 1. Subcutaneous fluid as described above. This is decreased since prior of 04/2018. 2. No significant disc protrusion identified. No abnormal marrow signal seen within the vertebral bodies. Venous Doppler Study 05/24/18 00:00 CONCLUSION: 1. Occlusive superficial thrombus in the mid and distal portions of the cephalic vein. Deep venous system is patent. Chest X-Ray 06/05/18 00:00 CONCLUSION: No acute intrathoracic disease. Physical Exam: GENERAL: NAD SKIN: Warm and dry. HEAD: Atraumatic. Normocephalic. EYES: Pupils equal and round. No scleral icterus. No injection or drainage. NECK: supple CARDIOVASCULAR: Regular rate and rhythm. + systolic murmur 2/6 RESPIRATORY: No accessory muscle use. Clear to auscultation. Breath sounds equal bilaterally. GASTROINTESTINAL: Abdomen soft, very tender RLQ/LLQ, moderately distended. Hepatic and splenic margins not palpable. MUSCULOSKELETAL: Extremities without clubbing, cyanosis, or edema. No obvious deformities. 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 Soft tissue abscess L area - not present on US PNA, H flu: clincially resolved Diarrhea, abx associated, C.diff negative 2/2 Persistent diarrhea - resolved Persistent fever: resolved Persisten leukocytosis - slowly improving Occlusive superficial thrombus in the mid and distal portions of the cephalic vein, no DVT - clinically improving Still has fluid collection in L spine area subcutaneously, but no vertebral changes . and its is significantly smaller - cont cefazoline adjusted renally anticipate 6 weeks from 1st negative blood clx unless metastatic infections will require longer tx duration (Stop date Jun 20) monitor WBC, fever - monitor GFR - chk urine eos if worsening GFR dw Dr Keys
[2018-06-05] MEDS: Aluminum/Magnesium/Simethacone Susp 30 ML UDC PO PRN ×2 (15:20→21:44)
[2018-06-05 17:25] LABS: Calcium 8.4 mg/dL (8.5-10.1); Carbon Dioxide 25.3 meq/L (21.0-32.0); Potassium 3.7 meq/L (3.5-5.1)
[2018-06-05 17:28] LABS: Troponin I 0.06 ng/mL (0.02-0.05)
[2018-06-06] MEDS: ceFAZolin 2 GM Premix Inj 2 GM/50 ML PIGGYBACK IV.SIG SCH ×3 (01:20→17:52)
[2018-06-06] MEDS: Acetaminophen 325 MG Tablet PO PRN ×5 (01:50→20:10)
[2018-06-06] MEDS: Sodium Chloride 0.9% 2 ML Flush PRN IV.FLUSH (01:51)
[2018-06-06] MEDS: Oral Hygiene Kit OROPHARYNG SCH ×3 (03:28→17:52)
[2018-06-06] MEDS: Carboxymethylcellulose 0.5% Opth Drops 15 ML Bottle EACH EYE SCH ×3 (03:28→17:52)
[2018-06-06 07:52] LABS: Baso # (Auto) 0.1 th/mm3 (0.0-0.2); Baso % (Auto) 1.4 % (0.0-2.0); Eos # (Auto) 0.4 th/mm3 (0.0-0.4); Hematocrit 23.6 % (39.0-51.0); Hemoglobin 7.7 gm/dL (13.0-17.0); Lymph # (Auto) 1.5 th/mm3 (1.0-4.8); Lymph % (Auto) 24.5 % (9.0-44.0); Mean Corpuscular HGB Conc 32.8 % (32.0-36.0); Mean Corpuscular Hemoglobin 27.3 pg (27.0-34.0); Mean Corpuscular Volume 83.3 fL (80.0-100.0); Mean Platelet Volume 7.7 fL (7.0-11.0); Mono # (Auto) 0.8 th/mm3 (0.0-0.9); Neut # (Auto) 3.4 th/mm3 (1.8-7.7); Neut % (Auto) 55.1 % (16.0-70.0); Platelet Count 575 th/mm3 (150-450); Red Blood Count 2.83 mil/mm3 (4.50-5.90); Red Cell Distribution Width 16.2 % (11.6-17.2); White Blood Count 6.2 th/mm3 (4.0-11.0)
[2018-06-06 08:08] LABS: Albumin 2.4 g/dL (3.4-5.0); Anion Gap 10 meq/L (5-15); Aspartate Aminotransferase 27 U/L (15-37); Blood Urea Nitrogen 37 mg/dL (7-18); Carbon Dioxide 24.1 meq/L (21.0-32.0); Chloride 104 meq/L (98-107); Glomerular Filtration Rate 47 mL/min (>89); Glucose,Random 73 mg/dL (74-106); Magnesium 1.9 mg/dL (1.5-2.5); Potassium 3.9 meq/L (3.5-5.1); Sodium 138 meq/L (136-145)
[2018-06-06 08:13] LABS: Alanine Aminotransferase 10 U/L (12-78); Alkaline Phosphatase 115 U/L (45-117); Phosphorus 4.1 mg/dL (2.5-4.9); Troponin I 0.52 ng/mL (0.02-0.05)
[2018-06-06 08:24] LABS: Creatine Kinase 31 U/L (39-308)
[2018-06-06] MEDS: Metoprolol Tartrate 50 MG Tablet PO SCH ×3 (09:04→17:52)
[2018-06-06] MEDS: Famotidine 20 MG Tablet PO SCH ×2 (09:05→20:11)
[2018-06-06] MEDS: Multivitamin/Minerals Therapeutic Tablet PO SCH (09:05)
[2018-06-06] MEDS: Methadone 10 MG Tablet PO SCH (09:05)
--- NOTE | 2018-06-06 09:13 | ECG ---
Date Performed: 06/06/2018 Time Performed: 01:10:36 PTAGE: 38 years EKG: Sinus rhythm Septal T wave changes are nonspecific Borderline ECG PREVIOUS TRACING : 06/05/2018 20.11 DOCTOR: Ambrosio Palacios Interpretating Date/Time 06/06/2018 09:10:55
[2018-06-06] MEDS: Sodium Chloride 0.9% 2 ML Flush BID IV.FLUSH SCH ×2 (09:14→20:12)
[2018-06-06] MEDS: Senna/Docusate Sodium 8.6/50 MG Tablet PO SCH ×2 (09:14→20:12)
--- NOTE | 2018-06-06 09:55 | ECG ---
Date Performed: 06/05/2018 Time Performed: 20:11:18 PTAGE: 38 years EKG: Sinus rhythm PROLONGED QT INTERVAL ABNORMAL ECG PREVIOUS TRACING : 06/05/2018 12.49 DOCTOR: Ambrosio Palacios Interpretating Date/Time 06/06/2018 09:54:26
--- NOTE | 2018-06-06 12:05 | P.PNIM ---
Subjective Interval history: 10 Follow-up endocarditis, MSSA, AKA, anemia, left arm thrombus. Patient seen and examined awake and alert oriented sitting in his bed, family at bedside. Patient complained about lower back pain and nausea. Patient just had a Tylenol and Zofran. Patient denies any vomiting. Patient denies any headache or dizziness, denies any fever or chills, denies diarrhea or constipation. Family was at bedside identified him as his father, address concern about his medications, antibiotic, and his dialysis. Answers questions and concerns. Patient also encouraged to use the urinal instead of the condom cath, encouraged to use the bathroom and out of bed. Discussed to cooperate with PT and OT. Patient verbalized understanding. Nurse addressed patients concern on pain medication, asking for a stronger pain medication. 10- HD CATH IS OUT WANTS TO SHOWER RBUY RN AND PT AND CM CONTINUE ANTIBIOTICS AM LABS INCREASE ACTIVITY 10- PATIENT HAD CHEST PAIN AFTER WORKING WITH PHYSICAL THERAPY WILL GET TROPONINS AND CE AND EKGS AND A CHEST XRAY NOW WILL TREND TROPONINS DW RN AND PT AND CM CONTINUE ANTIBIOTICS PER ID ALSO ASKING FOR MORE NARCOTICS 10-10 HAD CHEST PAIN YESTERDAY- TROPONNIS SLIGHTLY POSITIVE RANGE WILL RECALL CARDIOLOGY MAY BE DUE TO ENDOCARDITIS VS OTHER DW RN AND PT AND CM NEEDS TO INCREASE ACTIVITY SO CAN DC WHEN ANTIBIOTICS DONE Physical Exam Vital signs: Vital Signs 06/05/18 16:00 06/05/18 19:45 06/05/18 20:00 Temperature 97.3 F L 98.1 F Pulse Rate 64 78 73 Respiratory Rate 18 20 Blood Pressure 121/66 129/89 Pulse Oximetry 95 96 06/06/18 00:00 06/06/18 04:00 06/06/18 08:00 Temperature 97.1 F L 97.7 F 98.1 F Pulse Rate 72 60 61 Respiratory Rate 20 18 20 Blood Pressure 120/75 116/77 121/72 Pulse Oximetry 96 98 95 Intake & Output 06/05/18 06/06/18 06/06/18 18:59 06:59 18:59 Intake Total 820 / 820 680 / 680 50 / 50 Output Total 800 / 800 Balance 820 / 820 -120 / -120 50 / 50 Intake: IV 100 / 100 50 / 50 50 / 50 Ancef 2 GM Premix Inj 2 gm In 100 / 100 50 / 50 50 / 50 50 ml @ 100 mls/hr IV.SIG Q8H STEFFANIE Rx#:[id number] Oral 720 / 720 630 / 630 Output: Urine 800 / 800 Other: # Voids 3 Date of Last Bowel Movement 06/04/18 06/05/18 Narrative: GENERAL: Well-developed, well-nourished, alert and oriented x3, with no apparent distress. SKIN: Warm and dry. tattoos on lower leg, chest and back. Extra dry skin, peeling on bilateral foot with multiple skin discoloration, left fifth toe with necrotic area HEAD: Atraumatic. Normocephalic. EYES: Pupils equal and round. No scleral icterus. No injection or drainage. ENT: No nasal bleeding or discharge. Mucous membranes pink and moist. NECK: Trachea midline. No JVD. CARDIOVASCULAR: Regular rate and rhythm. S1, S2 NO S3 OR S4 RESPIRATORY: No accessory muscle use. Clear to auscultation. Breath sounds equal bilaterally. GASTROINTESTINAL: Abdomen soft, non-tender, nondistended. Hepatic and splenic margins not palpable. MUSCULOSKELETAL: Extremities without clubbing, cyanosis. No obvious deformities. left arm edema improving NEUROLOGICAL: Awake and alert. No obvious cranial nerve deficits. Motor grossly within normal limits. Generalized weakness, moving all 4 extremities. Normal speech. PSYCHIATRIC: Appropriate mood and affect; insight and judgment normal, cooperative. - Urinary Catheter Management Condom Cath placed during this visit: no Indwelling Urethral Catheter Cath placed during this visit: yes, but has since been removed by the nurse Reason for continuing: Decision to DC catheter Insertion date: 05/06/18 Insertion time: 16:40 Removal date: 05/14/18 Removal time: 08:00 Results - Labs CBC & Chem 7: 06/06/18 05:54 06/06/18 05:54 Laboratory Results - last 24 hr 06/05/18 06/05/18 06/05/18 12:58 12:58 16:00 WBC RBC Hgb Hct MCV MCH MCHC RDW Plt Count MPV Neut % (Auto) Lymph % (Auto) [place] % (Auto) Eos % (Auto) Baso % (Auto) Neut # (Auto) Lymph # (Auto) [place] # (Auto) Eos # (Auto) Baso # (Auto) WBC Differential Differential Comment Sodium 140 Potassium 3.7 Chloride 105 Carbon Dioxide 25.3 Anion Gap 10 BUN 34 H Creatinine 1.70 H Estimated GFR 45 L Random Glucose 91 Calcium 8.4 L Phosphorus Magnesium Total Bilirubin AST ALT Alkaline Phosphatase Total Creatine Kinase 22 L 21 L Troponin I Less than 0.02 L 0.06 H Total Protein Albumin 06/05/18 06/06/18 06/06/18 20:55 05:54 05:54 WBC 6.2 RBC 2.83 L Hgb 7.7 L Hct 23.6 L MCV 83.3 MCH 27.3 MCHC 32.8 RDW 16.2 Plt Count 575 H MPV 7.7 Neut % (Auto) 55.1 Lymph % (Auto) 24.5 [place] % (Auto) 13.0 H Eos % (Auto) 6.0 H Baso % (Auto) 1.4 Neut # (Auto) 3.4 Lymph # (Auto) 1.5 [place] # (Auto) 0.8 Eos # (Auto) 0.4 Baso # (Auto) 0.1 WBC Differential . Differential Comment Auto diff final Sodium 138 Potassium 3.9 Chloride 104 Carbon Dioxide 24.1 Anion Gap 10 BUN 37 H Creatinine 1.66 H Estimated GFR 47 L Random Glucose 73 L Calcium 9.0 Phosphorus 4.1 Magnesium 1.9 Total Bilirubin 0.3 AST 27 ALT 10 L Alkaline Phosphatase 115 Total Creatine Kinase 31 L Troponin I 0.62 H* 0.52 H Total Protein 8.0 Albumin 2.4 L - Imaging Impressions Chest X-Ray 06/05/18 00:00 CONCLUSION: No acute intrathoracic disease. - Procedures AURELIA Assessment and Plan - Assessment (1) Altered mental status Code(s): R41.82 - Altered mental status, unspecified Status: Acute (2) Endocarditis Code(s): I38 - Endocarditis, valve unspecified Status: Acute (3) Sepsis Code(s): A41.9 - Sepsis, unspecified organism Status: Acute (4) Hyponatremia Code(s): E87.1 - Hypo-osmolality and hyponatremia Status: Acute - Plan Patient is 30 years old male with history of IV drug use previous endocarditis, hepatitis C, who presented to the ED with acute psychosis and altered mental status. CHEST PAIN - TREND TROPONINS AND CARDIAC ENZYMES AND NITRO AND CHEST XRAY POSITIVE TROPONINS ON 06-05 AND 06-06 WILL RECONSULT CARDIOLOGY Severe sepsis / MSSA infective endocarditis/ Haemophilus influenza pneumonia. leukocytosis, diarrhea resolved -Blood culture with GPC 4 staph aureus on 05/02/18, 05/20 Blood Cx no growth x 5 days -repeat C-diff negative and repeated MRI lumbar spine with decreased size of posterior fluid collection -venous doppler of the left upper extremity with superficial phlebitis -ID following- . 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 -Neurology consult for embolic bilateral infarcts. Dr. Mike. -Continue aspirin -Continue supplement multivitamin thiamine -PT/OT eval and treat, out of bed Pneumonia/septic emboli/ Respiratory insufficiency-resolved -DuoNeb every 6 hours as needed -Sputum culture 05/09 H Influenzae -CT chest shows bilateral infiltrates -ID following -cont IV antibiotics Cefazolin until 06/20/18 per ID Lactic acidosis NSTEMI/Infective endocarditis/Persistent tachycardia/Hypertension -AURELIA shows large mitral valve vegetation (05/03) -Continue aspirin - Avoid statins at this time due to hep C -Elevated troponin may be secondary to coronary artery septic emboli -continue Lopressor , better rate and BP control Acute Kidney Injury/Hypocalcemia -Nephrology consulted - S/P HD T-TH- Sat, finished HD per nephrology recommendation -monitor calcium level and replace as needed. - avoid nephrotoxins -continue monitor the renal function, creatinine improving 1.67 today OFF HD - CATHETER REMOVED Hepatitis C -O/p f/u -Continue regular diet. Anemia- of chronic disease- - s/p PRBC transfusion on 05/25- H/H improved after transfusion- on Epogen - continue to monitor H/H 8.4/25.3 today -add MVI, monitor CBC Pain- history of IVDU - continue on methadone 5 mg daily, pain controlled -monitor response Left UE Thrombus Venous Doppler left UE: Occlusive superficial thrombus in the mid and distal portions of the cephalic vein. Deep venous system is patent. -elevate left UE -monitor Bilateral foot/extra dry skin -soak in luke warm water -apply petroleum jelly -keep skin moisturized DVT PROPH: increase ambulation -Bilateral lower extremity SCDs. Code Status: Full code Discussed Condition With: Patient and nursing Discharge Planning: Plan for discharge when cleared with ID and antibiotic treatment finished, tentative Jun 20, 2018 Code Status: FULL CODE Discussed Condition With: RN AND PT AND CM Discharge Planning: Plan for discharge when cleared with ID and antibiotic treatment finished, tentative Jun 20, 2018 RECONSULT CARDIO POSITIVE TROPONINS (3) Sepsis Qualifiers: Sepsis type: sepsis due to unspecified organism Qualified Code(s): A41.9 - Sepsis, unspecified organism
--- NOTE | 2018-06-06 18:44 | ECG ---
Date Performed: 06/05/2018 Time Performed: 12:49:02 PTAGE: 38 years EKG: Sinus rhythm . Lead(s) unsuitable for analysis: V5 Normal ECG based on available leads PREVIOUS TRACING : 05/17/2018 16.42 DOCTOR: Ambrosio Palacios Interpretating Date/Time 06/06/2018 18:43:46
[2018-06-06] MEDS ORDERED: Morphine Sulfate Inj 2 MG/ML Vial IV.PUSH ONE (20:28)
--- NOTE | 2018-06-06 22:30 | ECG ---
Date Performed: 06/06/2018 Time Performed: 18:54:42 PTAGE: 38 years EKG: Sinus rhythm . Lead(s) unsuitable for analysis: V2 Normal ECG based on available leads NO PREVIOUS TRACING DOCTOR: Hiram Majano Interpretating Date/Time 06/06/2018 22:29:29
[2018-06-07] MEDS: Carboxymethylcellulose 0.5% Opth Drops 15 ML Bottle EACH EYE SCH ×5 (03:00→22:13)
[2018-06-07] MEDS: Oral Hygiene Kit OROPHARYNG SCH ×4 (03:00→15:12)
[2018-06-07] MEDS: ceFAZolin 2 GM Premix Inj 2 GM/50 ML PIGGYBACK IV.SIG SCH ×3 (03:01→17:59)
[2018-06-07] MEDS: Acetaminophen 325 MG Tablet PO PRN ×3 (04:01→18:06)
--- NOTE | 2018-06-07 06:58 | P.CONCA ---
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 - Medical History Medical History: Medical History (Last Reviewed 06/04/18 @ 09:13 by Renee Irizarry) Heroin abuse Hepatitis C virus - Tobacco History Second Hand Smoke Exposure: No Tobacco Use In Past 30 Days: No Smoking Status: Cognitive impairment Tobacco Type: Cigarettes - Alcohol History How Often Do You Have a Drink Containing Alcohol: Unable to Obtain - Substance Use History Substance History: Active Abuse - Substance Use Type Heroin Status: Active Route Used: Intravenously Frequency: weekly; used prior to admission on 04-30-18 Reason for Use: Feels Good - Travel History Recent Travel in the [place] Within the Last 8 Weeks: No Recent Travel Out of the Country Within the Last 8 Weeks: No - Immunization History Tetanus Immunization: Unable to Assess Hx Influenza Vaccine This Season: Unable to Assess Medications and Allergies Active Medications: Active Medications Acetaminophen (Tylenol) 650 mg PO Q4H PRN PRN Reason: pain 1-10 or fever Last Admin: 06/07/18 04:01 Dose: 650 mg Al Hydrox/Mg Hydrox/Simethicone (Mag-Al Plus Susp Liq) 30 ml PO Q6H PRN PRN Reason: ABDOMINAL PAIN Last Admin: 06/05/18 21:44 Dose: 30 ml Albuterol (Albuterol Neb (Prn)) 2.5 mg NEB Q2HR NEB PRN PRN Reason: DYSPNEA Artificial Tears (Refresh Tears 0.5% Opth Drops) 1 drop EACH EYE Q6H [facility] Last Admin: 06/07/18 04:00 Dose: Not Given Aspirin (Aspirin Chew) 81 mg PO DAILY [facility] Last Admin: 06/06/18 09:04 Dose: 81 mg Bisacodyl (Dulcolax Supp) 10 mg RECTAL DAILY PRN PRN Reason: SEVERE CONSITIPATION Bumetanide (Bumex Inj) 1 mg IV.PUSH BID@0900,1800 [facility] Last Admin: 06/06/18 17:52 Dose: 1 mg Epoetin Imtiaz (Epogen Inj) 10,000 unit IV.PUSH UNSCH PRN PRN Reason: SEE LABEL COMMENTS Last Admin: 05/26/18 09:51 Dose: 10,000 unit Famotidine (Pepcid) 20 mg PO BID [facility] Last Admin: 06/06/18 20:11 Dose: 20 mg Gelatin (Gelfoam 12 Mm/7 Mm Topical) 1 foam TOPICAL PRN PRN PRN Reason: help stop bleeding from site Gentamicin Sulfate (Gentamicin Inj) 20 mg OTHER WITH DIALYSIS PRN PRN Reason: Dwell Gentamycin Lock Last Admin: 05/26/18 09:51 Dose: 20 mg Heparin Sodium (Porcine) (Heparin Inj) 8,000 units OTHER WITH DIALYSIS PRN PRN Reason: for machine prime Heparin Sodium (Porcine) (Heparin Inj) 1,000 units OTHER WITH DIALYSIS PRN PRN Reason: Dwell Heparin to Fill Catheter Last Admin: 05/26/18 09:51 Dose: 1,000 units Hydrophilic Ointment (Vaseline Oint) 1 applicatio TOPICAL PRN PRN PRN Reason: DRY SKIN Sodium Chloride (Ns Inj) 1,000 mls @ 0 mls/hr IV.SIG BOLUS STEFFANIE Sodium Phosphate 30 mmol/ (Sodium Chloride) 260 mls @ 42 mls/hr IV.SIG UNSCH PRN PRN Reason: For Phosphorus < 2.5 mg/dL Albumin Human (Flexbumin 25% Inj) 100 mls @ 60 mls/hr IV.SIG WITH DIALYSIS PRN PRN Reason: hypotension / volume replace Sodium Chloride (Ns Inj) 1,000 mls @ 0 mls/hr OTHER .Q0M PRN PRN Reason: for prime and rinse back Sodium Chloride (Ns Inj) 1,000 mls @ 200 mls/hr OTHER .Q5H PRN PRN Reason: for dialyzer flush PRN Sodium Chloride (Ns Inj) 1,000 mls @ 0 mls/hr IV.CONT .Q0M PRN PRN Reason: hypotension / volume replace Cefazolin Sodium/Dextrose (Ancef 2 Gm Premix Inj) 2 gm in 50 mls @ 100 mls/hr IV.SIG Q8H STEFFANIE Last Admin: 06/07/18 03:01 Dose: 200 mls/hr Loperamide HCl (Imodium) 2 mg PO Q4H PRN PRN Reason: DIARRHEA Last Admin: 05/22/18 07:49 Dose: 2 mg Mannitol (Mannitol Inj) 12.5 gm IV.PUSH UNSCH PRN PRN Reason: hypotension / volume replace Methadone HCl (Dolophine) 5 mg PO DAILY [facility] Last Admin: 06/06/18 09:05 Dose: 5 mg Metoprolol Tartrate (Lopressor) 50 mg PO TID [facility] Last Admin: 06/06/18 17:52 Dose: 50 mg Miscellaneous (Pill Splitter) 1 each OTHER UNSCH [facility] Miscellaneous Information ([facility] Ordered Lab Info) 1 each OTHER ONCE [facility] Multivitamins/Minerals (Theragran-M) 1 tab PO DAILY [facility] Last Admin: 06/06/18 09:05 Dose: 1 tab Ondansetron HCl (Zofran Inj) 4 mg IV.PUSH Q6H PRN PRN Reason: NAUSEA Last Admin: 06/06/18 09:12 Dose: 4 mg Senna/Docusate Sodium (Angle-Colace) 1 tab PO BID [facility] Last Admin: 06/06/18 20:12 Dose: Not Given Sennosides (Senokot) 17.2 mg PO Q12H PRN PRN Reason: Moderate Constipation Last Admin: 05/08/18 07:59 Dose: 17.2 mg Sodium Chloride (Ns Flush) 5 ml IV.FLUSH PRN PRN PRN Reason: flush each lumen during HD Sodium Chloride (Ns Flush) 2 ml IV.FLUSH BID [facility] Last Admin: 06/06/18 20:12 Dose: 2 ml Sodium Chloride (Ns Flush) 2 ml IV.FLUSH PRN PRN PRN Reason: FLUSH AFTER USING IV ACCESS Last Admin: 06/06/18 01:51 Dose: 2 ml Allergies Allergy/AdvReac Type Severity Reaction Status Date / Time No Known Allergies Allergy Unknown Uncoded 07/13/17 00:28 Exam Vital signs: Vital Signs 06/06/18 08:00 06/06/18 12:00 06/06/18 14:41 Temperature 98.1 F 97.1 F L Pulse Rate 61 85 Respiratory Rate 20 20 Blood Pressure 121/72 112/65 Pulse Oximetry 95 95 95 06/06/18 16:00 06/06/18 19:05 06/06/18 19:10 Temperature 98.5 F 97.8 F Pulse Rate 70 79 73 Respiratory Rate 20 18 18 Blood Pressure 111/66 120/79 113/63 Pulse Oximetry 97 97 97 06/06/18 19:40 06/06/18 20:00 06/06/18 22:12 Temperature Pulse Rate 71 67 Respiratory Rate 18 Blood Pressure 123/75 Pulse Oximetry 97 97 06/07/18 00:00 06/07/18 04:00 Temperature 98.3 F 98.5 F Pulse Rate 67 80 Respiratory Rate 18 18 Blood Pressure 124/77 126/77 Pulse Oximetry 99 95 Intake & Output 06/06/18 06/06/18 06/07/18 06:59 18:59 06:59 Intake Total 680 / 680 940 / 940 Output Total 800 / 800 Balance -120 / -120 940 / 940 Weight 72 kg Intake: IV 50 / 50 100 / 100 Ancef 2 GM Premix Inj 2 gm In 50 / 50 100 / 100 50 ml @ 100 mls/hr IV.SIG Q8H STEFFANIE Rx#:[id number] Oral 630 / 630 840 / 840 Output: Urine 800 / 800 Other: # Voids 3 Date of Last Bowel Movement 06/05/18 # Bowel Movements 1 Results 06/06/18 05:54 06/06/18 05:54 Cardiac Enzymes 06/05/18 06/05/18 06/05/18 Range/Units 12:58 16:00 20:55 AST (15-37) U/L Troponin I Less than 0.02 L 0.06 H 0.62 H* (0.02-0.05) ng/mL 06/06/18 Range/Units 05:54 AST 27 (15-37) U/L Troponin I 0.52 H (0.02-0.05) ng/mL CBC 06/06/18 Range/Units 05:54 WBC 6.2 (4.0-11.0) th/mm3 RBC 2.83 L (4.50-5.90) mil/mm3 Hgb 7.7 L (13.0-17.0) gm/dL Hct 23.6 L (39.0-51.0) % Plt Count 575 H (150-450) th/mm3 Neut # (Auto) 3.4 (1.8-7.7) th/mm3 Lymph # (Auto) 1.5 (1.0-4.8) th/mm3 [place] # (Auto) 0.8 (0.0-0.9) th/mm3 Eos # (Auto) 0.4 (0.0-0.4) th/mm3 Baso # (Auto) 0.1 (0.0-0.2) th/mm3 Comprehensive Metabolic Panel 06/05/18 06/06/18 Range/Units 16:00 05:54 Sodium 140 138 (136-145) meq/L Potassium 3.7 3.9 (3.5-5.1) meq/L Chloride 105 104 (98-107) meq/L Carbon Dioxide 25.3 24.1 (21.0-32.0) meq/L BUN 34 H 37 H (7-18) mg/dL Creatinine 1.70 H 1.66 H (0.60-1.30) mg/dL Calcium 8.4 L 9.0 (8.5-10.1) mg/dL AST 27 (15-37) U/L ALT 10 L (12-78) U/L Alkaline Phosphatase 115 (45-117) U/L Total Protein 8.0 (6.4-8.2) g/dL Albumin 2.4 L (3.4-5.0) g/dL Intake and Output 06/06/18 06/06/18 06/07/18 14:59 22:59 06:59 Intake Total 50 / 50 890 / 890 Balance 50 / 50 890 / 890 Intake: IV 50 / 50 50 / 50 Ancef 2 GM Premix Inj 2 gm In 50 / 50 50 / 50 50 ml @ 100 mls/hr IV.SIG Q8H STEFFANIE Rx#:[id number] Oral 840 / 840 Other: # Voids 3 # Bowel Movements 1 Weight 72 kg Patient Weight 06/07/18 06:59 Weight 72 kg - Imaging and Cardiology Imaging: Impressions Chest X-Ray 06/05/18 00:00 CONCLUSION: No acute intrathoracic disease. Assessment and Plan - Plan Type 2 NSTEMI will recheck echo, if RWMA will consider lexiscan. Patient doing much better. Thank you. Please call me with ?s
[2018-06-07 08:39] LABS: Baso # (Auto) 0.1 th/mm3 (0.0-0.2); Baso % (Auto) 1.2 % (0.0-2.0); Eos # (Auto) 0.4 th/mm3 (0.0-0.4); Eos % (Auto) 5.9 % (0.0-4.0); Hematocrit 23.2 % (39.0-51.0); Hemoglobin 7.7 gm/dL (13.0-17.0); Lymph # (Auto) 1.5 th/mm3 (1.0-4.8); Lymph % (Auto) 20.5 % (9.0-44.0); Mean Corpuscular HGB Conc 33.2 % (32.0-36.0); Mean Corpuscular Hemoglobin 27.6 pg (27.0-34.0); Mean Corpuscular Volume 83.3 fL (80.0-100.0); Mean Platelet Volume 7.7 fL (7.0-11.0); Mono # (Auto) 0.7 th/mm3 (0.0-0.9); Mono % (Auto) 10.3 % (0.0-8.0); Neut # (Auto) 4.4 th/mm3 (1.8-7.7); Neut % (Auto) 62.1 % (16.0-70.0); Platelet Count 575 th/mm3 (150-450); Red Blood Count 2.78 mil/mm3 (4.50-5.90); Red Cell Distribution Width 16.5 % (11.6-17.2); White Blood Count 7.1 th/mm3 (4.0-11.0)
[2018-06-07] MEDS: Multivitamin/Minerals Therapeutic Tablet PO SCH (08:56)
[2018-06-07] MEDS: Metoprolol Tartrate 50 MG Tablet PO SCH ×3 (08:56→17:59)
[2018-06-07] MEDS: Methadone 10 MG Tablet PO SCH (08:57)
[2018-06-07] MEDS: Sodium Chloride 0.9% 2 ML Flush BID IV.FLUSH SCH ×2 (08:57→20:26)
[2018-06-07] MEDS: Senna/Docusate Sodium 8.6/50 MG Tablet PO SCH ×2 (08:57→20:27)
[2018-06-07] MEDS: Famotidine 20 MG Tablet PO SCH ×2 (08:57→20:26)
[2018-06-07 09:15] LABS: Albumin 2.8 g/dL (3.4-5.0); Anion Gap 9 meq/L (5-15); Aspartate Aminotransferase 28 U/L (15-37); Blood Urea Nitrogen 39 mg/dL (7-18); Calcium 9.3 mg/dL (8.5-10.1); Carbon Dioxide 25.2 meq/L (21.0-32.0); Chloride 102 meq/L (98-107); Glomerular Filtration Rate 45 mL/min (>89); Glucose,Random 74 mg/dL (74-106); Magnesium 2.1 mg/dL (1.5-2.5); Potassium 4.1 meq/L (3.5-5.1); Sodium 136 meq/L (136-145)
[2018-06-07 09:20] LABS: Alanine Aminotransferase 9 U/L (12-78); Alkaline Phosphatase 119 U/L (45-117); Phosphorus 4.3 mg/dL (2.5-4.9); Total Protein 8.4 g/dL (6.4-8.2)
--- NOTE | 2018-06-07 14:20 | P.PNIM ---
Subjective Interval history: 10 Follow-up endocarditis, MSSA, AKA, anemia, left arm thrombus. Patient seen and examined awake and alert oriented sitting in his bed, family at bedside. Patient complained about lower back pain and nausea. Patient just had a Tylenol and Zofran. Patient denies any vomiting. Patient denies any headache or dizziness, denies any fever or chills, denies diarrhea or constipation. Family was at bedside identified him as his father, address concern about his medications, antibiotic, and his dialysis. Answers questions and concerns. Patient also encouraged to use the urinal instead of the condom cath, encouraged to use the bathroom and out of bed. Discussed to cooperate with PT and OT. Patient verbalized understanding. Nurse addressed patients concern on pain medication, asking for a stronger pain medication. 10-8 HD CATH IS OUT WANTS TO SHOWER DW RN AND PT AND CM CONTINUE ANTIBIOTICS AM LABS INCREASE ACTIVITY 10- PATIENT HAD CHEST PAIN AFTER WORKING WITH PHYSICAL THERAPY WILL GET TROPONINS AND CE AND EKGS AND A CHEST XRAY NOW WILL TREND TROPONINS DW RN AND PT AND CM CONTINUE ANTIBIOTICS PER ID ALSO ASKING FOR MORE NARCOTICS 10-10 HAD CHEST PAIN YESTERDAY- TROPONNIS SLIGHTLY POSITIVE RANGE WILL RECALL CARDIOLOGY MAY BE DUE TO ENDOCARDITIS VS OTHER DW RN AND PT AND CM NEEDS TO INCREASE ACTIVITY SO CAN DC WHEN ANTIBIOTICS DONE - AWAIT ECHO NEEDS TO AMBULATE DW RN AND PT AND CM AM LABS Physical Exam Vital signs: Vital Signs 06/06/18 14:41 06/06/18 16:00 06/06/18 19:05 Temperature 98.5 F 97.8 F Pulse Rate 70 79 Respiratory Rate 20 18 Blood Pressure 111/66 120/79 Pulse Oximetry 95 97 97 06/06/18 19:10 06/06/18 19:40 06/06/18 20:00 Temperature Pulse Rate 73 71 67 Respiratory Rate 18 18 Blood Pressure 113/63 123/75 Pulse Oximetry 97 97 06/06/18 22:12 06/07/18 00:00 06/07/18 04:00 Temperature 98.3 F 98.5 F Pulse Rate 67 80 Respiratory Rate 18 18 Blood Pressure 124/77 126/77 Pulse Oximetry 97 99 95 06/07/18 08:00 06/07/18 11:00 06/07/18 12:00 Temperature 97.6 F 97.5 F L Pulse Rate 71 74 Respiratory Rate 20 20 Blood Pressure 122/79 112/66 Pulse Oximetry 95 97 97 Intake & Output 06/06/18 06/07/18 06/07/18 18:59 06:59 18:59 Intake Total 940 / 940 1010 / 1010 50 / 50 Output Total 850 / 850 Balance 940 / 940 160 / 160 50 / 50 Weight 72 kg Intake: IV 100 / 100 50 / 50 50 / 50 Ancef 2 GM Premix Inj 2 gm In 100 / 100 50 / 50 50 / 50 50 ml @ 100 mls/hr IV.SIG Q8H STEFFANIE Rx#:[id number] Oral 840 / 840 Oral Supplement 960 / 960 Output: Urine 850 / 850 Other: # Voids 3 Date of Last Bowel Movement 06/06/18 # Bowel Movements 1 0 Narrative: GENERAL: Well-developed, well-nourished, alert and oriented x3, with no apparent distress. SKIN: Warm and dry. tattoos on lower leg, chest and back. Extra dry skin, peeling on bilateral foot with multiple skin discoloration, left fifth toe with necrotic area HEAD: Atraumatic. Normocephalic. EYES: Pupils equal and round. No scleral icterus. No injection or drainage. ENT: No nasal bleeding or discharge. Mucous membranes pink and moist. NECK: Trachea midline. No JVD. CARDIOVASCULAR: Regular rate and rhythm. S1, S2 NO S3 OR S4 RESPIRATORY: No accessory muscle use. Clear to auscultation. Breath sounds equal bilaterally. GASTROINTESTINAL: Abdomen soft, non-tender, nondistended. Hepatic and splenic margins not palpable. MUSCULOSKELETAL: Extremities without clubbing, cyanosis. No obvious deformities. left arm edema improving NEUROLOGICAL: Awake and alert. No obvious cranial nerve deficits. Motor grossly within normal limits. Generalized weakness, moving all 4 extremities. Normal speech. PSYCHIATRIC: Appropriate mood and affect; insight and judgment normal, cooperative. - Urinary Catheter Management Condom Cath placed during this visit: no Indwelling Urethral Catheter Cath placed during this visit: yes, but has since been removed by the nurse Reason for continuing: Decision to DC catheter Insertion date: 05/06/18 Insertion time: 16:40 Removal date: 05/14/18 Removal time: 08:00 Results - Labs CBC & Chem 7: 06/07/18 07:27 06/07/18 07:27 Laboratory Results - last 24 hr 10/11/18 10/11/18 07:27 07:27 WBC 7.1 RBC 2.78 L Hgb 7.7 L Hct 23.2 L MCV 83.3 MCH 27.6 MCHC 33.2 RDW 16.5 Plt Count 575 H MPV 7.7 Neut % (Auto) 62.1 Lymph % (Auto) 20.5 [place] % (Auto) 10.3 H Eos % (Auto) 5.9 H Baso % (Auto) 1.2 Neut # (Auto) 4.4 Lymph # (Auto) 1.5 [place] # (Auto) 0.7 Eos # (Auto) 0.4 Baso # (Auto) 0.1 WBC Differential . Differential Comment Auto diff final Sodium 136 Potassium 4.1 Chloride 102 Carbon Dioxide 25.2 Anion Gap 9 BUN 39 H Creatinine 1.70 H Estimated GFR 45 L Random Glucose 74 Calcium 9.3 Phosphorus 4.3 Magnesium 2.1 Total Bilirubin 0.4 AST 28 ALT 9 L Alkaline Phosphatase 119 H Total Protein 8.4 H Albumin 2.8 L - Imaging ITS Impressions Chest CT 04/30/18 00:00 CONCLUSION: 1. Parenchymal process bilaterally most likely inflammatory and pneumonia. Head MRI 05/01/18 00:00 CONCLUSION: 1. Multifocal bilateral punctate infarcts, suspicious for embolic disease. 2. No midline shift or mass effect. Thoracic Spine MRI 05/06/18 00:00 CONCLUSION: 1. Negative thoracic MRI with no evidence of osteomyelitis or discitis. 2. Please see lumbar spine MRI for further details on findings in this region. Head CT 05/06/18 15:42 CONCLUSION: 1. No acute hemorrhage or mass effect. 2. The small bilateral known punctate infarcts seen on the MRI are not distinctly visualized. 3. Mucosal thickening in the ethmoidal air cells, sphenoid sinus and both maxillary sinuses. Abdomen/Bladder Ultrasound 05/08/18 00:00 CONCLUSION: 1. Trace perinephric fluid surrounding the right kidney. 2. Small right pleural effusion. 3. Otherwise normal sonographic appearance of the kidneys without evidence of hydronephrosis. Abdomen/Pelvis CT 05/23/18 00:00 CONCLUSION: 1. New moderate-sized area of left lower lobe atelectasis. 2. New small pericardial effusion. 3. New mild superficial soft tissue edema of the lateral anterior abdominal wall bilaterally. 4. Splenic infarct again noted. 5. Perinephric stranding again noted bilaterally. Lumbar Spine MRI 05/24/18 00:00 CONCLUSION: 1. Subcutaneous fluid as described above. This is decreased since prior of 04/2018. 2. No significant disc protrusion identified. No abnormal marrow signal seen within the vertebral bodies. Venous Doppler Study 05/24/18 00:00 CONCLUSION: 1. Occlusive superficial thrombus in the mid and distal portions of the cephalic vein. Deep venous system is patent. Chest X-Ray 06/05/18 00:00 CONCLUSION: No acute intrathoracic disease. - Procedures AURELIA Assessment and Plan - Assessment (1) Altered mental status Code(s): R41.82 - Altered mental status, unspecified Status: Acute (2) Endocarditis Code(s): I38 - Endocarditis, valve unspecified Status: Acute (3) Sepsis Code(s): A41.9 - Sepsis, unspecified organism Status: Acute (4) Hyponatremia Code(s): E87.1 - Hypo-osmolality and hyponatremia Status: Acute - Plan Patient is 30 years old male with history of IV drug use previous endocarditis, hepatitis C, who presented to the ED with acute psychosis and altered mental status. CHEST PAIN 06-05 TREND TROPONINS AND CARDIAC ENZYMES AND NITRO AND CHEST XRAY POSITIVE TROPONINS ON 06-05 AND 06-06 WILL RECONSULT CARDIOLOGY Severe sepsis / MSSA infective endocarditis/ Haemophilus influenza pneumonia. leukocytosis, diarrhea resolved -Blood culture with GPC 4 staph aureus on 05/02/18, 05/20 Blood Cx no growth x 5 days -repeat C-diff negative and repeated MRI lumbar spine with decreased size of posterior fluid collection -venous doppler of the left upper extremity with superficial phlebitis -ID following- . 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 -Neurology consult for embolic bilateral infarcts. Dr. Mike. -Continue aspirin -Continue supplement multivitamin thiamine -PT/OT eval and treat, out of bed Pneumonia/septic emboli/ Respiratory insufficiency-resolved -DuoNeb every 6 hours as needed -Sputum culture 05/09 H Influenzae -CT chest shows bilateral infiltrates -ID following -cont IV antibiotics Cefazolin until 06/20/18 per ID Lactic acidosis NSTEMI/Infective endocarditis/Persistent tachycardia/Hypertension -AURELIA shows large mitral valve vegetation (05/03) -Continue aspirin - Avoid statins at this time due to hep C -Elevated troponin may be secondary to coronary artery septic emboli -continue Lopressor , better rate and BP control Acute Kidney Injury/Hypocalcemia -Nephrology consulted - S/P HD T-TH- Sat, finished HD per nephrology recommendation -monitor calcium level and replace as needed. - avoid nephrotoxins -continue monitor the renal function, creatinine improving 1.67 today OFF HD - CATHETER REMOVED Hepatitis C -O/p f/u -Continue regular diet. Anemia- of chronic disease- - s/p PRBC transfusion on 05/25- H/H improved after transfusion- on Epogen - continue to monitor H/H 8.4/25.3 today -add MVI, monitor CBC Pain- history of IVDU - continue on methadone 5 mg daily, pain controlled -monitor response Left UE Thrombus Venous Doppler left UE: Occlusive superficial thrombus in the mid and distal portions of the cephalic vein. Deep venous system is patent. -elevate left UE -monitor Bilateral foot/extra dry skin -soak in luke warm water -apply petroleum jelly -keep skin moisturized DVT PROPH: increase ambulation -Bilateral lower extremity SCDs. Code Status: Full code Discussed Condition With: Patient and nursing Discharge Planning: Plan for discharge when cleared with ID and antibiotic treatment finished, tentative Jun 20, 2018 Code Status: FULL CODE Discussed Condition With: RUBY RN AND PT Discharge Planning: Plan for discharge when cleared with ID and antibiotic treatment finished, tentative Jun 20, 2018 RECONSULT CARDIO POSITIVE TROPONINS (3) Sepsis Qualifiers: Sepsis type: sepsis due to unspecified organism Qualified Code(s): A41.9 - Sepsis, unspecified organism
--- NOTE | 2018-06-07 18:08 | ECHRPT ---
Indication: CARDIOMYOPATHY CONCLUSIONS Limited for LV fuction and wall motion abnormalities The left ventricular systolic function is normal with an estimated ejection fraction in the range of 50-55%. No regional wall motion abnormality. Normal Wall thickness and LV chamber size. The left atrial size is mildly dilated. Thickened mitral valve leaflets which could represent healing vegetation. Mild to Moderate mitral va lve regurgitation. There is a trivial pericardial effusion present. In coparison to the prior TTE, the MR is slightly worse. BP: / HR: Rhythm: Technical Quality: FINDINGS LEFT VENTRICLE Normal left ventricular size. Wall thickness is normal. The left ventricular systolic function is low normal with an estimated ejection fraction in the rang e of 50- 55%. LEFT ATRIUM The left atrial size is mildly dilated. MITRAL VALVE Mild to Moderate mitral valve regurgitation. PERICARDIUM There is a trivial pericardial effusion present. Jose M Martines MD (Electronically Signed) Final Date:07 June 2018 18:07
[2018-06-08] MEDS: Oral Hygiene Kit OROPHARYNG SCH ×4 (00:53→15:55)
[2018-06-08] MEDS: Acetaminophen 325 MG Tablet PO PRN ×4 (02:50→21:20)
[2018-06-08] MEDS: ceFAZolin 2 GM Premix Inj 2 GM/50 ML PIGGYBACK IV.SIG SCH (02:51)
[2018-06-08 05:23] LABS: Baso # (Auto) 0.1 th/mm3 (0.0-0.2); Baso % (Auto) 1.4 % (0.0-2.0); Eos # (Auto) 0.4 th/mm3 (0.0-0.4); Eos % (Auto) 6.4 % (0.0-4.0); Hematocrit 22.2 % (39.0-51.0); Hemoglobin 7.3 gm/dL (13.0-17.0); Lymph # (Auto) 1.4 th/mm3 (1.0-4.8); Lymph % (Auto) 19.9 % (9.0-44.0); Mean Corpuscular HGB Conc 32.7 % (32.0-36.0); Mean Corpuscular Hemoglobin 27.3 pg (27.0-34.0); Mean Corpuscular Volume 83.3 fL (80.0-100.0); Mean Platelet Volume 7.9 fL (7.0-11.0); Mono # (Auto) 0.8 th/mm3 (0.0-0.9); Mono % (Auto) 10.8 % (0.0-8.0); Neut # (Auto) 4.3 th/mm3 (1.8-7.7); Neut % (Auto) 61.5 % (16.0-70.0); Platelet Count 530 th/mm3 (150-450); Red Blood Count 2.66 mil/mm3 (4.50-5.90); Red Cell Distribution Width 16.2 % (11.6-17.2)
[2018-06-08 05:29] LABS: Albumin 2.4 g/dL (3.4-5.0); Anion Gap 10 meq/L (5-15); Aspartate Aminotransferase 25 U/L (15-37); Blood Urea Nitrogen 41 mg/dL (7-18); Calcium 8.9 mg/dL (8.5-10.1); Carbon Dioxide 24.5 meq/L (21.0-32.0); Chloride 102 meq/L (98-107); Glomerular Filtration Rate 42 mL/min (>89); Glucose,Random 89 mg/dL (74-106); Magnesium 1.9 mg/dL (1.5-2.5); Potassium 4.2 meq/L (3.5-5.1); Sodium 136 meq/L (136-145)
[2018-06-08 05:31] LABS: Alanine Aminotransferase 13 U/L (12-78); Phosphorus 4.3 mg/dL (2.5-4.9)
[2018-06-08 05:33] LABS: Alkaline Phosphatase 119 U/L (45-117); Total Protein 8.1 g/dL (6.4-8.2)
[2018-06-08] MEDS: Carboxymethylcellulose 0.5% Opth Drops 15 ML Bottle EACH EYE SCH ×4 (06:32→21:30)
[2018-06-08] MEDS ORDERED: ceFAZolin Inj 2,000 MG in Sodium Chlor 0.9% Inj 100 ML IV.SIG SCH (09:00)
[2018-06-08] MEDS: Famotidine 20 MG Tablet PO SCH ×2 (09:25→21:18)
[2018-06-08] MEDS: Senna/Docusate Sodium 8.6/50 MG Tablet PO SCH ×2 (09:25→21:29)
[2018-06-08] MEDS: Metoprolol Tartrate 50 MG Tablet PO SCH ×3 (09:26→17:07)
[2018-06-08] MEDS: Methadone 10 MG Tablet PO SCH (09:26)
[2018-06-08] MEDS: Multivitamin/Minerals Therapeutic Tablet PO SCH (09:26)
[2018-06-08] MEDS: ceFAZolin Inj 2,000 MG in Sodium Chlor 0.9% Inj 80 ML IV.SIG SCH ×2 (09:27→17:08)
[2018-06-08] MEDS: Sodium Chloride 0.9% 2 ML Flush BID IV.FLUSH SCH ×2 (09:27→21:29)
--- NOTE | 2018-06-08 11:51 | P.PNIM ---
Subjective Interval history: 10 Follow-up endocarditis, MSSA, AKA, anemia, left arm thrombus. Patient seen and examined awake and alert oriented sitting in his bed, family at bedside. Patient complained about lower back pain and nausea. Patient just had a Tylenol and Zofran. Patient denies any vomiting. Patient denies any headache or dizziness, denies any fever or chills, denies diarrhea or constipation. Family was at bedside identified him as his father, address concern about his medications, antibiotic, and his dialysis. Answers questions and concerns. Patient also encouraged to use the urinal instead of the condom cath, encouraged to use the bathroom and out of bed. Discussed to cooperate with PT and OT. Patient verbalized understanding. Nurse addressed patients concern on pain medication, asking for a stronger pain medication. 10 HD CATH IS OUT WANTS TO SHOWER DW RN AND PT AND CM CONTINUE ANTIBIOTICS AM LABS INCREASE ACTIVITY 06-05 PATIENT HAD CHEST PAIN AFTER WORKING WITH PHYSICAL THERAPY WILL GET TROPONINS AND CE AND EKGS AND A CHEST XRAY NOW WILL TREND TROPONINS DW RN AND PT AND CM CONTINUE ANTIBIOTICS PER ID ALSO ASKING FOR MORE NARCOTICS 06-06 HAD CHEST PAIN YESTERDAY- TROPONNIS SLIGHTLY POSITIVE RANGE WILL RECALL CARDIOLOGY MAY BE DUE TO ENDOCARDITIS VS OTHER DW RN AND PT AND CM NEEDS TO INCREASE ACTIVITY SO CAN DC WHEN ANTIBIOTICS DONE 06-07 AWAIT ECHO NEEDS TO AMBULATE DW RN AND PT AND CM AM LABS 06-08 HAD ECHO STABLE CONTINUE TO INCREASE ACTIVITY NEEDS PT AND OT Physical Exam Vital signs: Vital Signs 06/07/18 12:00 06/07/18 16:00 06/07/18 20:00 Temperature 97.5 F L 98.4 F 97.9 F Pulse Rate 71 75 78 Respiratory Rate 20 20 18 Blood Pressure 112/66 132/78 105/55 L Pulse Oximetry 97 98 97 06/08/18 00:00 06/08/18 04:00 06/08/18 08:00 Temperature 98.1 F 98.2 F 98.3 F Pulse Rate 69 72 70 Respiratory Rate 18 18 18 Blood Pressure 119/63 109/62 132/73 Pulse Oximetry 97 96 98 Intake & Output 06/07/18 06/08/18 06/08/18 18:59 06:59 18:59 Intake Total 820 / 820 530 / 530 100 / 100 Output Total 300 / 300 Balance 820 / 820 230 / 230 100 / 100 Weight 72.7 kg Intake: IV 100 / 100 50 / 50 100 / 100 Ancef 2 GM Premix Inj 2 gm In 100 / 100 50 / 50 50 ml @ 100 mls/hr IV.SIG Q8H [facility] Rx#:[id number] Ancef Inj 2,000 MG In NS Inj 80 100 / 100 ML @ 100 mls/hr IV.SIG Q8H [facility] Rx#:[id number] Oral 720 / 720 480 / 480 Output: Urine 300 / 300 Other: # Voids 6 Date of Last Bowel Movement 06/06/18 06/06/18 06/06/18 # Bowel Movements 0 0 Narrative: GENERAL: Well-developed, well-nourished, alert and oriented x3, with no apparent distress. SKIN: Warm and dry. tattoos on lower leg, chest and back. Extra dry skin, peeling on bilateral foot with multiple skin discoloration, left fifth toe with necrotic area HEAD: Atraumatic. Normocephalic. EYES: Pupils equal and round. No scleral icterus. No injection or drainage. ENT: No nasal bleeding or discharge. Mucous membranes pink and moist. NECK: Trachea midline. No JVD. CARDIOVASCULAR: Regular rate and rhythm. S1, S2 NO S3 OR S4 RESPIRATORY: No accessory muscle use. Clear to auscultation. Breath sounds equal bilaterally. GASTROINTESTINAL: Abdomen soft, non-tender, nondistended. Hepatic and splenic margins not palpable. MUSCULOSKELETAL: Extremities without clubbing, cyanosis. No obvious deformities. left arm edema improving NEUROLOGICAL: Awake and alert. No obvious cranial nerve deficits. Motor grossly within normal limits. Generalized weakness, moving all 4 extremities. Normal speech. PSYCHIATRIC: Appropriate mood and affect; insight and judgment normal, cooperative. - Urinary Catheter Management Condom Cath placed during this visit: no Indwelling Urethral Catheter Cath placed during this visit: yes, but has since been removed by the nurse Reason for continuing: Decision to DC catheter Insertion date: 05/06/18 Insertion time: 16:40 Removal date: 05/14/18 Removal time: 08:00 Results - Labs CBC & Chem 7: 06/08/18 04:32 06/08/18 04:32 Laboratory Results - last 24 hr 06/08/18 06/08/18 04:32 04:32 WBC 7.0 RBC 2.66 L Hgb 7.3 L Hct 22.2 L MCV 83.3 MCH 27.3 MCHC 32.7 RDW 16.2 Plt Count 530 H MPV 7.9 Neut % (Auto) 61.5 Lymph % (Auto) 19.9 Hand % (Auto) 10.8 H Eos % (Auto) 6.4 H Baso % (Auto) 1.4 Neut # (Auto) 4.3 Lymph # (Auto) 1.4 Hand # (Auto) 0.8 Eos # (Auto) 0.4 Baso # (Auto) 0.1 WBC Differential . Differential Comment Auto diff final Sodium 136 Potassium 4.2 Chloride 102 Carbon Dioxide 24.5 Anion Gap 10 BUN 41 H Creatinine 1.83 H Estimated GFR 42 L Random Glucose 89 Calcium 8.9 Phosphorus 4.3 Magnesium 1.9 Total Bilirubin 0.2 AST 25 ALT 13 Alkaline Phosphatase 119 H Total Protein 8.1 Albumin 2.4 L - Procedures AURELIA Assessment and Plan - Assessment (1) Altered mental status Code(s): R41.82 - Altered mental status, unspecified Status: Acute (2) Endocarditis Code(s): I38 - Endocarditis, valve unspecified Status: Acute (3) Sepsis Code(s): A41.9 - Sepsis, unspecified organism Status: Acute (4) Hyponatremia Code(s): E87.1 - Hypo-osmolality and hyponatremia Status: Acute - Plan Patient is 30 years old male with history of IV drug use previous endocarditis, hepatitis C, who presented to the ED with acute psychosis and altered mental status. CHEST PAIN -9 TREND TROPONINS AND CARDIAC ENZYMES AND NITRO AND CHEST XRAY POSITIVE TROPONINS ON 06-05 AND 06-06 WILL RECONSULT CARDIOLOGY--ECHO IS STABLE Severe sepsis / MSSA infective endocarditis/ Haemophilus influenza pneumonia. leukocytosis, diarrhea resolved -Blood culture with GPC 4 staph aureus on 05/02/18, 05/20 Blood Cx no growth x 5 days -repeat C-diff negative and repeated MRI lumbar spine with decreased size of posterior fluid collection -venous doppler of the left upper extremity with superficial phlebitis -ID following- . 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 -Neurology consult for embolic bilateral infarcts. Dr. Mike. -Continue aspirin -Continue supplement multivitamin thiamine -PT/OT eval and treat, out of bed Pneumonia/septic emboli/ Respiratory insufficiency-resolved -DuoNeb every 6 hours as needed -Sputum culture 05/09 H Influenzae -CT chest shows bilateral infiltrates -ID following -cont IV antibiotics Cefazolin until 06/20/18 per ID Lactic acidosis NSTEMI/Infective endocarditis/Persistent tachycardia/Hypertension -AURELIA shows large mitral valve vegetation (05/03) -Continue aspirin - Avoid statins at this time due to hep C -Elevated troponin may be secondary to coronary artery septic emboli -continue Lopressor , better rate and BP control Acute Kidney Injury/Hypocalcemia -Nephrology consulted - S/P HD T-- Sat, finished HD per nephrology recommendation -monitor calcium level and replace as needed. - avoid nephrotoxins -continue monitor the renal function, creatinine improving 1.67 today OFF HD - CATHETER REMOVED Hepatitis C -O/p f/u -Continue regular diet. Anemia- of chronic disease- - s/p PRBC transfusion on 05/25- H/H improved after transfusion- on Epogen - continue to monitor H/H 8.4/25.3 today -add MVI, monitor CBC Pain- history of IVDU - continue on methadone 5 mg daily, pain controlled -monitor response Left UE Thrombus Venous Doppler left UE: Occlusive superficial thrombus in the mid and distal portions of the cephalic vein. Deep venous system is patent. -elevate left UE -monitor Bilateral foot/extra dry skin -soak in luke warm water -apply petroleum jelly -keep skin moisturized DVT PROPH: increase ambulation -Bilateral lower extremity SCDs. Code Status: Full code Discussed Condition With: Patient and nursing Discharge Planning: Plan for discharge when cleared with ID and antibiotic treatment finished, tentative Jun 20, 2018 Code Status: FULL CODE Discussed Condition With: RN AND PT AND CM Discharge Planning: Plan for discharge when cleared with ID and antibiotic treatment finished, tentative Jun 20, 2018 (3) Sepsis Qualifiers: Sepsis type: sepsis due to unspecified organism Qualified Code(s): A41.9 - Sepsis, unspecified organism
[2018-06-09] MEDS: Oral Hygiene Kit OROPHARYNG SCH ×3 (01:24→11:15)
[2018-06-09] MEDS: ceFAZolin Inj 2,000 MG in Sodium Chlor 0.9% Inj 80 ML IV.SIG SCH ×3 (01:25→18:20)
[2018-06-09] MEDS: Carboxymethylcellulose 0.5% Opth Drops 15 ML Bottle EACH EYE SCH ×2 (03:32→09:02)
[2018-06-09] MEDS: Methadone 10 MG Tablet PO SCH (08:53)
[2018-06-09] MEDS: Multivitamin/Minerals Therapeutic Tablet PO SCH (08:54)
[2018-06-09] MEDS: Metoprolol Tartrate 50 MG Tablet PO SCH ×3 (08:54→18:20)
[2018-06-09] MEDS: Famotidine 20 MG Tablet PO SCH ×2 (08:54→20:47)
[2018-06-09] MEDS: Sodium Chloride 0.9% 2 ML Flush BID IV.FLUSH SCH ×2 (08:55→20:48)
[2018-06-09] MEDS: Senna/Docusate Sodium 8.6/50 MG Tablet PO SCH ×2 (08:58→20:48)
[2018-06-09] MEDS: Acetaminophen 325 MG Tablet PO PRN ×3 (11:28→23:23)
--- NOTE | 2018-06-09 15:10 | P.PN ---
Subjective Interval history: Follow-up endocarditis, MSSA, BRENDA, anemia, left arm thrombus. Patient seen and examined. Denies any chest pain at this time, indicates that it was only when he did his physical therapy. Thinks that it was due to him being so deconditioned. Has nausea, no vomiting. Appetite okay. No fever. No shortness of breath. Voiding okay. Physical Exam Vital signs: Vital Signs 06/08/18 16:00 06/08/18 16:58 06/08/18 20:00 Temperature 98.4 F 98.6 F Pulse Rate 71 75 Respiratory Rate 18 18 Blood Pressure 103/66 102/60 Pulse Oximetry 98 98 97 06/09/18 00:00 06/09/18 04:00 06/09/18 08:00 Temperature 97.5 F L 98.0 F 97.8 F Pulse Rate 64 61 86 Respiratory Rate 18 18 18 Blood Pressure 111/65 119/62 124/77 Pulse Oximetry 97 96 97 06/09/18 10:55 06/09/18 12:00 Temperature 97.9 F Pulse Rate 72 Respiratory Rate 18 Blood Pressure 115/70 Pulse Oximetry 95 97 Intake & Output 06/08/18 06/09/18 06/09/18 18:59 06:59 18:59 Intake Total 200 / 200 100 / 100 100 / 100 Balance 200 / 200 100 / 100 100 / 100 Weight 74.8 kg Intake: IV 200 / 200 100 / 100 100 / 100 Ancef Inj 2,000 MG In NS Inj 80 200 / 200 100 / 100 100 / 100 ML @ 100 mls/hr IV.SIG Q8H [facility] Rx#:[id number] Other: # Voids 4 Date of Last Bowel Movement 06/06/18 06/06/18 Narrative: GENERAL: Thin built, chronically ill-appearing male. SKIN: Warm and dry. Extra dry skin, peeling on bilateral foot with multiple skin discoloration, left fifth toe with necrotic area HEAD: Atraumatic. Normocephalic. EYES: Pupils equal and round. No scleral icterus. No injection or drainage. ENT: No nasal bleeding or discharge. Mucous membranes pink and moist. NECK: Trachea midline. No JVD. CARDIOVASCULAR: Regular rate and rhythm. S1-S2, unable to detect any murmurs rubs or gallops. RESPIRATORY: No accessory muscle use. Clear to auscultation. Breath sounds equal bilaterally. GASTROINTESTINAL: Abdomen soft, non-tender, nondistended. Hepatic and splenic margins not palpable. MUSCULOSKELETAL: Bilateral lower extremity with muscle atrophy. Pedal pulses 2+ . Left arm edema improving NEUROLOGICAL: Awake and alert. No obvious cranial nerve deficits. Motor grossly within normal limits. Generalized weakness, moving all 4 extremities. Normal speech. PSYCHIATRIC: Appropriate mood and affect; insight and judgment normal, cooperative. - Urinary Catheter Management Condom Cath placed during this visit: no Indwelling Urethral Catheter Cath placed during this visit: yes, but has since been removed by the nurse Reason for continuing: Decision to DC catheter Insertion date: 05/06/18 Insertion time: 16:40 Removal date: 05/14/18 Removal time: 08:00 Results - Labs CBC & Chem 7: 06/08/18 04:32 06/08/18 04:32 - Procedures AURELIA Assessment and Plan - Assessment (1) Altered mental status Code(s): R41.82 - Altered mental status, unspecified Status: Acute (2) Endocarditis Code(s): I38 - Endocarditis, valve unspecified Status: Acute (3) Sepsis Code(s): A41.9 - Sepsis, unspecified organism Status: Acute (4) Hyponatremia Code(s): E87.1 - Hypo-osmolality and hyponatremia Status: Acute - Plan Patient is 30 years old male with history of IV drug use previous endocarditis, hepatitis C, who presented to the ED with acute psychosis and altered mental status. Severe sepsis / MSSA infective endocarditis/ Haemophilus influenza pneumonia. 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 -Neurology consult for embolic bilateral infarcts. Dr. Mike. -Continue aspirin -Continue supplement multivitamin thiamine -PT/OT eval and treat, out of bed Pneumonia/septic emboli/ Respiratory insufficiency-resolved -DuoNeb every 6 hours as needed -Sputum culture 05/09 H Influenzae -CT chest shows bilateral infiltrates -ID following -cont IV antibiotics Cefazolin until 06/20/18 per ID Lactic acidosis-resolved NSTEMI/Infective endocarditis/Persistent tachycardia/Hypertension -AURELIA shows large mitral valve vegetation (05/03) -Continue aspirin -Avoid statins at this time due to hep C -Elevated troponin may be secondary to coronary artery septic emboli -continue Lopressor , better rate and BP control Acute Kidney Injury/Hypocalcemia -Nephrology consulted - S/P HD T-TH- Sat, finished HD per nephrology recommendation -HD catheter removed - avoid nephrotoxins -creat improving, creat 1.83. Making urine -Change to Bumex PO 1 mg BID Chest pain on 06/05. Trop elevated NSTEMI Type II Trop, CXR and EKG done -Appreciate card input -Echo done, EF 50-55% -Trop elevated, CXR and EKG done -Continue ASA and BB Hepatitis C -O/p f/u -Continue regular diet. Anemia- of chronic disease- - s/p PRBC transfusion on 05/25- H/H improved after transfusion- was on Epogen as well during HD - continue to monitor, HH 7.3/22.2 -continue MVI, monitor CBC Chronic Pain- history of IVDU -continue on methadone 5 mg daily, pain controlled -monitor response Left UE Thrombus Venous Doppler left UE: Occlusive superficial thrombus in the mid and distal portions of the cephalic vein. Deep venous system is patent. -elevate left UE -monitor Bilateral foot/extra dry skin -soak in luke warm water -apply petroleum jelly -keep skin moisturized DVT PROPH: increase ambulation -Bilateral lower extremity SCDs. Labs in am Code Status: Full code Discussed Condition With: Patient, RN, CM Discharge Planning: When abx finished. (3) Sepsis Qualifiers: Sepsis type: sepsis due to unspecified organism Qualified Code(s): A41.9 - Sepsis, unspecified organism
[2018-06-10] MEDS: ceFAZolin Inj 2,000 MG in Sodium Chlor 0.9% Inj 80 ML IV.SIG SCH ×3 (01:38→17:25)
[2018-06-10] MEDS: Acetaminophen 325 MG Tablet PO PRN ×4 (05:51→21:10)
[2018-06-10 06:57] LABS: Carbon Dioxide 25.7 meq/L (21.0-32.0); Potassium 4.2 meq/L (3.5-5.1)
[2018-06-10] MEDS: Famotidine 20 MG Tablet PO SCH ×2 (09:16→21:10)
[2018-06-10] MEDS: Methadone 10 MG Tablet PO SCH (09:16)
[2018-06-10] MEDS: Multivitamin/Minerals Therapeutic Tablet PO SCH (09:16)
[2018-06-10] MEDS: Metoprolol Tartrate 50 MG Tablet PO SCH ×3 (09:17→17:26)
[2018-06-10] MEDS: Sodium Chloride 0.9% 2 ML Flush BID IV.FLUSH SCH ×2 (09:18→21:12)
[2018-06-10] MEDS: Senna/Docusate Sodium 8.6/50 MG Tablet PO SCH ×2 (09:18→21:11)
--- NOTE | 2018-06-10 12:13 | P.PNIM ---
Subjective Interval history: 10- Follow-up endocarditis, MSSA, AKA, anemia, left arm thrombus. Patient seen and examined awake and alert oriented sitting in his bed, family at bedside. Patient complained about lower back pain and nausea. Patient just had a Tylenol and Zofran. Patient denies any vomiting. Patient denies any headache or dizziness, denies any fever or chills, denies diarrhea or constipation. Family was at bedside identified him as his father, address concern about his medications, antibiotic, and his dialysis. Answers questions and concerns. Patient also encouraged to use the urinal instead of the condom cath, encouraged to use the bathroom and out of bed. Discussed to cooperate with PT and OT. Patient verbalized understanding. Nurse addressed patients concern on pain medication, asking for a stronger pain medication. 10-8 HD CATH IS OUT WANTS TO SHOWER DW RN AND PT AND CM CONTINUE ANTIBIOTICS AM LABS INCREASE ACTIVITY 10-9 PATIENT HAD CHEST PAIN AFTER WORKING WITH PHYSICAL THERAPY WILL GET TROPONINS AND CE AND EKGS AND A CHEST XRAY NOW WILL TREND TROPONINS DW RN AND PT AND CM CONTINUE ANTIBIOTICS PER ID ALSO ASKING FOR MORE NARCOTICS 10-10 HAD CHEST PAIN YESTERDAY- TROPONNIS SLIGHTLY POSITIVE RANGE WILL RECALL CARDIOLOGY MAY BE DUE TO ENDOCARDITIS VS OTHER DW RN AND PT AND CM NEEDS TO INCREASE ACTIVITY SO CAN DC WHEN ANTIBIOTICS DONE 10-11 AWAIT ECHO NEEDS TO AMBULATE DW RN AND PT AND CM AM LABS 10-12 HAD ECHO STABLE CONTINUE TO INCREASE ACTIVITY NEEDS PT AND OT 10-13 Follow-up endocarditis, MSSA, BRENDA, anemia, left arm thrombus. Patient seen and examined. Denies any chest pain at this time, indicates that it was only when he did his physical therapy. Thinks that it was due to him being so deconditioned. Has nausea, no vomiting. Appetite okay. No fever. No shortness of breath. Voiding okay. 10-14 NO NEW ISSUES TODAY DW RN AND PT Physical Exam Vital signs: Vital Signs 06/09/18 16:00 06/09/18 17:10 06/09/18 20:00 Temperature 98 F 97.8 F Pulse Rate 69 75 Respiratory Rate 18 17 Blood Pressure 102/56 L 115/68 Pulse Oximetry 97 97 97 06/10/18 00:00 06/10/18 04:00 06/10/18 08:00 Temperature 97.2 F L 97.6 F 97.8 F Pulse Rate 65 62 65 Respiratory Rate 16 17 18 Blood Pressure 121/71 113/66 110/61 Pulse Oximetry 98 97 96 06/10/18 11:13 Temperature Pulse Rate Respiratory Rate Blood Pressure Pulse Oximetry 96 Intake & Output 06/09/18 06/10/18 06/10/18 18:59 06:59 18:59 Intake Total 580 / 580 883 / 883 Output Total 650 / 650 500 / 500 Balance -70 / -70 383 / 383 Weight 74.3 kg Intake: IV 100 / 100 200 / 200 Ancef Inj 2,000 MG In NS Inj 80 100 / 100 200 / 200 ML @ 100 mls/hr IV.SIG Q8H [facility] Rx#:[id number] Oral 480 / 480 683 / 683 Output: Urine 650 / 650 500 / 500 Other: Date of Last Bowel Movement 06/09/18 Narrative: GENERAL: Thin built, chronically ill-appearing male. SKIN: Warm and dry. Extra dry skin, peeling on bilateral foot with multiple skin discoloration, left fifth toe with necrotic area HEAD: Atraumatic. Normocephalic. EYES: Pupils equal and round. No scleral icterus. No injection or drainage. ENT: No nasal bleeding or discharge. Mucous membranes pink and moist. NECK: Trachea midline. No JVD. CARDIOVASCULAR: Regular rate and rhythm. S1-S2, unable to detect any murmurs rubs or gallops. RESPIRATORY: No accessory muscle use. Clear to auscultation. Breath sounds equal bilaterally. GASTROINTESTINAL: Abdomen soft, non-tender, nondistended. Hepatic and splenic margins not palpable. MUSCULOSKELETAL: Bilateral lower extremity with muscle atrophy. Pedal pulses 2+ . Left arm edema improving NEUROLOGICAL: Awake and alert. No obvious cranial nerve deficits. Motor grossly within normal limits. Generalized weakness, moving all 4 extremities. Normal speech. PSYCHIATRIC: Appropriate mood and affect; insight and judgment normal, cooperative. - Urinary Catheter Management Condom Cath placed during this visit: no Indwelling Urethral Catheter Cath placed during this visit: yes, but has since been removed by the nurse Reason for continuing: Decision to DC catheter Insertion date: 05/06/18 Insertion time: 16:40 Removal date: 05/14/18 Removal time: 08:00 Results - Labs CBC & Chem 7: 06/08/18 04:32 06/10/18 05:42 Laboratory Results - last 24 hr 10/14/18 05:42 Sodium 137 Potassium 4.2 Chloride 103 Carbon Dioxide 25.7 Anion Gap 8 BUN 36 H Creatinine 1.81 H Estimated GFR 42 L Random Glucose 77 Calcium 9.0 - Procedures AURELIA Assessment and Plan - Assessment (1) Altered mental status Code(s): R41.82 - Altered mental status, unspecified Status: Acute (2) Endocarditis Code(s): I38 - Endocarditis, valve unspecified Status: Acute (3) Sepsis Code(s): A41.9 - Sepsis, unspecified organism Status: Acute (4) Hyponatremia Code(s): E87.1 - Hypo-osmolality and hyponatremia Status: Acute - Plan Patient is 30 years old male with history of IV drug use previous endocarditis, hepatitis C, who presented to the ED with acute psychosis and altered mental status. Severe sepsis / MSSA infective endocarditis/ Haemophilus influenza pneumonia. 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 -Neurology consult for embolic bilateral infarcts. Dr. Mike. -Continue aspirin -Continue supplement multivitamin thiamine -PT/OT eval and treat, out of bed Pneumonia/septic emboli/ Respiratory insufficiency-resolved -DuoNeb every 6 hours as needed -Sputum culture 05/09 H Influenzae -CT chest shows bilateral infiltrates -ID following -cont IV antibiotics Cefazolin until 06/20/18 per ID Lactic acidosis-resolved NSTEMI/Infective endocarditis/Persistent tachycardia/Hypertension -AURELIA shows large mitral valve vegetation (05/03) -Continue aspirin -Avoid statins at this time due to hep C -Elevated troponin may be secondary to coronary artery septic emboli -continue Lopressor , better rate and BP control Acute Kidney Injury/Hypocalcemia -Nephrology consulted - S/P HD T-TH- Sat, finished HD per nephrology recommendation -HD catheter removed - avoid nephrotoxins -creat improving, creat 1.83. Making urine -Change to Bumex PO 1 mg BID Chest pain on 06/05. Trop elevated NSTEMI Type II Trop, CXR and EKG done -Appreciate card input -Echo done, EF 50-55% -Trop elevated, CXR and EKG done -Continue ASA and BB Hepatitis C -O/p f/u -Continue regular diet. Anemia- of chronic disease- - s/p PRBC transfusion on 05/25- H/H improved after transfusion- was on Epogen as well during HD - continue to monitor, HH 7.3/22.2 -continue MVI, monitor CBC Chronic Pain- history of IVDU -continue on methadone 5 mg daily, pain controlled -monitor response Left UE Thrombus Venous Doppler left UE: Occlusive superficial thrombus in the mid and distal portions of the cephalic vein. Deep venous system is patent. -elevate left UE -monitor Bilateral foot/extra dry skin -soak in luke warm water -apply petroleum jelly -keep skin moisturized DVT PROPH: increase ambulation -Bilateral lower extremity SCDs. Code Status: FULL CODE Discussed Condition With: RN AND PT AND CM Discharge Planning: Plan for discharge when cleared with ID and antibiotic treatment finished, tentative Jun 20, 2018 (3) Sepsis Qualifiers: Sepsis type: sepsis due to unspecified organism Qualified Code(s): A41.9 - Sepsis, unspecified organism
[2018-06-10] MEDS ORDERED: Mometasone Furoate 50 MCG/ACT 17 GM Nasal Spray Bottle EACH NARE SCH (15:00)
[2018-06-11] MEDS: ceFAZolin Inj 2,000 MG in Sodium Chlor 0.9% Inj 80 ML IV.SIG SCH ×3 (02:14→18:25)
[2018-06-11] MEDS: Acetaminophen 325 MG Tablet PO PRN ×5 (02:14→22:17)
[2018-06-11 07:22] LABS: Baso # (Auto) 0.1 th/mm3 (0.0-0.2); Baso % (Auto) 1.4 % (0.0-2.0); Eos # (Auto) 0.6 th/mm3 (0.0-0.4); Eos % (Auto) 8.7 % (0.0-4.0); Hematocrit 21.2 % (39.0-51.0); Hemoglobin 7.1 gm/dL (13.0-17.0); Lymph # (Auto) 1.3 th/mm3 (1.0-4.8); Lymph % (Auto) 19.8 % (9.0-44.0); Mean Corpuscular HGB Conc 33.3 % (32.0-36.0); Mean Corpuscular Hemoglobin 27.8 pg (27.0-34.0); Mean Corpuscular Volume 83.3 fL (80.0-100.0); Mono # (Auto) 0.8 th/mm3 (0.0-0.9); Mono % (Auto) 11.9 % (0.0-8.0); Neut # (Auto) 3.8 th/mm3 (1.8-7.7); Neut % (Auto) 58.2 % (16.0-70.0); Platelet Count 460 th/mm3 (150-450); Red Blood Count 2.55 mil/mm3 (4.50-5.90); Red Cell Distribution Width 16.8 % (11.6-17.2); White Blood Count 6.6 th/mm3 (4.0-11.0)
[2018-06-11 07:43] LABS: Albumin 2.5 g/dL (3.4-5.0); Anion Gap 10 meq/L (5-15); Aspartate Aminotransferase 22 U/L (15-37); Blood Urea Nitrogen 40 mg/dL (7-18); Carbon Dioxide 24.3 meq/L (21.0-32.0); Chloride 102 meq/L (98-107); Glomerular Filtration Rate 37 mL/min (>89); Glucose,Random 82 mg/dL (74-106); Magnesium 1.9 mg/dL (1.5-2.5); Potassium 4.3 meq/L (3.5-5.1); Sodium 136 meq/L (136-145)
[2018-06-11 08:02] LABS: Alanine Aminotransferase 8 U/L (12-78); Alkaline Phosphatase 107 U/L (45-117); Calcium 8.7 mg/dL (8.5-10.1); Phosphorus 4.9 mg/dL (2.5-4.9); Total Protein 8.1 g/dL (6.4-8.2)
[2018-06-11] MEDS: Metoprolol Tartrate 50 MG Tablet PO SCH ×3 (08:23→17:37)
[2018-06-11] MEDS: Multivitamin/Minerals Therapeutic Tablet PO SCH (08:23)
[2018-06-11] MEDS: Famotidine 20 MG Tablet PO SCH ×2 (08:23→21:36)
[2018-06-11] MEDS: Methadone 10 MG Tablet PO SCH (08:24)
[2018-06-11] MEDS: Sodium Chloride 0.9% 2 ML Flush BID IV.FLUSH SCH ×2 (08:25→21:36)
[2018-06-11] MEDS: Senna/Docusate Sodium 8.6/50 MG Tablet PO SCH ×2 (08:25→21:37)
[2018-06-11] MEDS ORDERED: Sodium Chlor 0.9% Inj 250 ML IV.SIG SCH (10:00)
--- NOTE | 2018-06-11 11:56 | P.PNIM ---
Subjective Interval history: 10- Follow-up endocarditis, MSSA, AKA, anemia, left arm thrombus. Patient seen and examined awake and alert oriented sitting in his bed, family at bedside. Patient complained about lower back pain and nausea. Patient just had a Tylenol and Zofran. Patient denies any vomiting. Patient denies any headache or dizziness, denies any fever or chills, denies diarrhea or constipation. Family was at bedside identified him as his father, address concern about his medications, antibiotic, and his dialysis. Answers questions and concerns. Patient also encouraged to use the urinal instead of the condom cath, encouraged to use the bathroom and out of bed. Discussed to cooperate with PT and OT. Patient verbalized understanding. Nurse addressed patients concern on pain medication, asking for a stronger pain medication. 10-8 HD CATH IS OUT WANTS TO SHOWER DW RN AND PT AND CM CONTINUE ANTIBIOTICS AM LABS INCREASE ACTIVITY 10-9 PATIENT HAD CHEST PAIN AFTER WORKING WITH PHYSICAL THERAPY WILL GET TROPONINS AND CE AND EKGS AND A CHEST XRAY NOW WILL TREND TROPONINS DW RN AND PT AND CM CONTINUE ANTIBIOTICS PER ID ALSO ASKING FOR MORE NARCOTICS 10-10 HAD CHEST PAIN YESTERDAY- TROPONNIS SLIGHTLY POSITIVE RANGE WILL RECALL CARDIOLOGY MAY BE DUE TO ENDOCARDITIS VS OTHER DW RN AND PT AND CM NEEDS TO INCREASE ACTIVITY SO CAN DC WHEN ANTIBIOTICS DONE 10-11 AWAIT ECHO NEEDS TO AMBULATE DW RN AND PT AND CM AM LABS 10-12 HAD ECHO STABLE CONTINUE TO INCREASE ACTIVITY NEEDS PT AND OT 10- Follow-up endocarditis, MSSA, BRENDA, anemia, left arm thrombus. Patient seen and examined. Denies any chest pain at this time, indicates that it was only when he did his physical therapy. Thinks that it was due to him being so deconditioned. Has nausea, no vomiting. Appetite okay. No fever. No shortness of breath. Voiding okay. 10-14 NO NEW ISSUES TODAY DW RN AND PT 10-15 COMPLAINS OF NASAL ISSUES/ALLERGIES STARTED ON NASAL STEROIDS- HE STATES MUCH BETTER CONTINUE ANTIBIOTICS PT AND OT INCREASE ACTIVITY Physical Exam Vital signs: Vital Signs 06/10/18 12:00 06/10/18 16:00 06/10/18 20:00 Temperature 98.1 F 98.3 F 98.5 F Pulse Rate 66 66 71 Respiratory Rate 18 19 Blood Pressure 105/64 108/63 118/63 Pulse Oximetry 97 98 97 06/11/18 00:00 06/11/18 04:00 06/11/18 08:00 Temperature 97.8 F 97.7 F Pulse Rate 68 64 59 L Respiratory Rate 18 18 Blood Pressure 105/62 104/55 L Pulse Oximetry 98 97 06/11/18 08:57 Temperature Pulse Rate Respiratory Rate Blood Pressure Pulse Oximetry 98 Intake & Output 06/10/18 06/11/18 06/11/18 18:59 06:59 18:59 Intake Total 620 / 620 542 / 542 100 / 100 Output Total 1300 / 1300 400 / 400 Balance -680 / -680 142 / 142 100 / 100 Weight 73 kg Intake: IV 200 / 200 100 / 100 100 / 100 Ancef Inj 2,000 MG In NS Inj 80 200 / 200 100 / 100 100 / 100 ML @ 100 mls/hr IV.SIG Q8H [facility] Rx#:[id number] Oral 420 / 420 442 / 442 Output: Urine 1300 / 1300 400 / 400 Other: Date of Last Bowel Movement 06/09/18 # Bowel Movements 1 Narrative: GENERAL: Thin built, chronically ill-appearing male. SKIN: Warm and dry. Extra dry skin, peeling on bilateral foot with multiple skin discoloration, left fifth toe with necrotic area HEAD: Atraumatic. Normocephalic. EYES: Pupils equal and round. No scleral icterus. No injection or drainage. ENT: No nasal bleeding or discharge. Mucous membranes pink and moist. NECK: Trachea midline. No JVD. CARDIOVASCULAR: Regular rate and rhythm. S1-S2, unable to detect any murmurs rubs or gallops. RESPIRATORY: No accessory muscle use. Clear to auscultation. Breath sounds equal bilaterally. GASTROINTESTINAL: Abdomen soft, non-tender, nondistended. Hepatic and splenic margins not palpable. MUSCULOSKELETAL: Bilateral lower extremity with muscle atrophy. Pedal pulses 2+ . Left arm edema improving NEUROLOGICAL: Awake and alert. No obvious cranial nerve deficits. Motor grossly within normal limits. Generalized weakness, moving all 4 extremities. Normal speech. PSYCHIATRIC: Appropriate mood and affect; insight and judgment normal, cooperative. - Urinary Catheter Management Condom Cath placed during this visit: no Indwelling Urethral Catheter Cath placed during this visit: yes, but has since been removed by the nurse Reason for continuing: Decision to DC catheter Insertion date: 09/09/18 Insertion time: 16:40 Removal date: 05/14/18 Removal time: 08:00 Results - Labs CBC & Chem 7: 06/11/18 06:20 06/11/18 06:20 Laboratory Results - last 24 hr 06/11/18 06/11/18 06:20 06:20 WBC 6.6 RBC 2.55 L Hgb 7.1 L Hct 21.2 L MCV 83.3 MCH 27.8 MCHC 33.3 RDW 16.8 Plt Count 460 H MPV 8.0 Neut % (Auto) 58.2 Lymph % (Auto) 19.8 [place] % (Auto) 11.9 H Eos % (Auto) 8.7 H Baso % (Auto) 1.4 Neut # (Auto) 3.8 Lymph # (Auto) 1.3 [place] # (Auto) 0.8 Eos # (Auto) 0.6 H Baso # (Auto) 0.1 WBC Differential . Differential Comment Auto diff final Sodium 136 Potassium 4.3 Chloride 102 Carbon Dioxide 24.3 Anion Gap 10 BUN 40 H Creatinine 2.05 H Estimated GFR 37 L Random Glucose 82 Calcium 8.7 Phosphorus 4.9 Magnesium 1.9 Total Bilirubin 0.3 AST 22 ALT 8 L Alkaline Phosphatase 107 Total Protein 8.1 Albumin 2.5 L - Procedures AURELIA Assessment and Plan - Assessment (1) Altered mental status Code(s): R41.82 - Altered mental status, unspecified Status: Acute (2) Endocarditis Code(s): I38 - Endocarditis, valve unspecified Status: Acute (3) Sepsis Code(s): A41.9 - Sepsis, unspecified organism Status: Acute (4) Hyponatremia Code(s): E87.1 - Hypo-osmolality and hyponatremia Status: Acute - Plan Patient is 30 years old male with history of IV drug use previous endocarditis, hepatitis C, who presented to the ED with acute psychosis and altered mental status. Severe sepsis / MSSA infective endocarditis/ Haemophilus influenza pneumonia. 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 -Neurology consult for embolic bilateral infarcts. Dr. Mike. -Continue aspirin -Continue supplement multivitamin thiamine -PT/OT eval and treat, out of bed Pneumonia/septic emboli/ Respiratory insufficiency-resolved -DuoNeb every 6 hours as needed -Sputum culture 05/09 H Influenzae -CT chest shows bilateral infiltrates -ID following -cont IV antibiotics Cefazolin until 06/20/18 per ID Lactic acidosis-resolved NSTEMI/Infective endocarditis/Persistent tachycardia/Hypertension -AURELIA shows large mitral valve vegetation (05/03) -Continue aspirin -Avoid statins at this time due to hep C -Elevated troponin may be secondary to coronary artery septic emboli -continue Lopressor , better rate and BP control Acute Kidney Injury/Hypocalcemia -Nephrology consulted - S/P HD T-TH- Sat, finished HD per nephrology recommendation -HD catheter removed - avoid nephrotoxins -creat improving, creat 1.83. Making urine -Change to Bumex PO 1 mg BID Chest pain on 06/05. Trop elevated NSTEMI Type II Trop, CXR and EKG done -Appreciate card input -Echo done, EF 50-55% -Trop elevated, CXR and EKG done -Continue ASA and BB Hepatitis C -O/p f/u -Continue regular diet. Anemia- of chronic disease- - s/p PRBC transfusion on 05/25- H/H improved after transfusion- was on Epogen as well during HD - continue to monitor, HH 7.3/22.2 -continue MVI, monitor CBC Chronic Pain- history of IVDU -continue on methadone 5 mg daily, pain controlled -monitor response Left UE Thrombus Venous Doppler left UE: Occlusive superficial thrombus in the mid and distal portions of the cephalic vein. Deep venous system is patent. -elevate left UE -monitor Bilateral foot/extra dry skin -soak in luke warm water -apply petroleum jelly -keep skin moisturized SEASONAL ALLERGIES- STARTED ON NASAL STEROIDS WITH IMPROVEMENT DVT PROPH: increase ambulation -Bilateral lower extremity SCDs. Code Status: FULL CODE Discussed Condition With: RN AND PT AND CM Discharge Planning: Plan for discharge when cleared with ID and antibiotic treatment finished, tentative Jun 20, 2018 (3) Sepsis Qualifiers: Sepsis type: sepsis due to unspecified organism Qualified Code(s): A41.9 - Sepsis, unspecified organism
[2018-06-12] MEDS: ceFAZolin Inj 2,000 MG in Sodium Chlor 0.9% Inj 80 ML IV.SIG SCH ×3 (02:49→17:54)
[2018-06-12] MEDS: Acetaminophen 325 MG Tablet PO PRN ×4 (04:15→21:12)
[2018-06-12] MEDS: Famotidine 20 MG Tablet PO SCH ×2 (08:03→20:56)
[2018-06-12] MEDS: Metoprolol Tartrate 50 MG Tablet PO SCH ×3 (08:03→17:54)
[2018-06-12] MEDS: Methadone 10 MG Tablet PO SCH (08:03)
[2018-06-12] MEDS: Multivitamin/Minerals Therapeutic Tablet PO SCH (08:03)
[2018-06-12] MEDS: Sodium Chloride 0.9% 2 ML Flush BID IV.FLUSH SCH ×2 (08:04→20:56)
[2018-06-12] MEDS: Senna/Docusate Sodium 8.6/50 MG Tablet PO SCH ×2 (08:05→20:57)
--- NOTE | 2018-06-12 12:06 | P.PNIM ---
Subjective Interval history: 10- Follow-up endocarditis, MSSA, AKA, anemia, left arm thrombus. Patient seen and examined awake and alert oriented sitting in his bed, family at bedside. Patient complained about lower back pain and nausea. Patient just had a Tylenol and Zofran. Patient denies any vomiting. Patient denies any headache or dizziness, denies any fever or chills, denies diarrhea or constipation. Family was at bedside identified him as his father, address concern about his medications, antibiotic, and his dialysis. Answers questions and concerns. Patient also encouraged to use the urinal instead of the condom cath, encouraged to use the bathroom and out of bed. Discussed to cooperate with PT and OT. Patient verbalized understanding. Nurse addressed patients concern on pain medication, asking for a stronger pain medication. 10-8 HD CATH IS OUT WANTS TO SHOWER DW RN AND PT AND CM CONTINUE ANTIBIOTICS AM LABS INCREASE ACTIVITY 10-9 PATIENT HAD CHEST PAIN AFTER WORKING WITH PHYSICAL THERAPY WILL GET TROPONINS AND CE AND EKGS AND A CHEST XRAY NOW WILL TREND TROPONINS DW RN AND PT AND CM CONTINUE ANTIBIOTICS PER ID ALSO ASKING FOR MORE NARCOTICS 10-10 HAD CHEST PAIN YESTERDAY- TROPONNIS SLIGHTLY POSITIVE RANGE WILL RECALL CARDIOLOGY MAY BE DUE TO ENDOCARDITIS VS OTHER DW RN AND PT AND CM NEEDS TO INCREASE ACTIVITY SO CAN DC WHEN ANTIBIOTICS DONE 10-11 AWAIT ECHO NEEDS TO AMBULATE DW RN AND PT AND CM AM LABS 10-12 HAD ECHO STABLE CONTINUE TO INCREASE ACTIVITY NEEDS PT AND OT 10-13 Follow-up endocarditis, MSSA, BRENDA, anemia, left arm thrombus. Patient seen and examined. Denies any chest pain at this time, indicates that it was only when he did his physical therapy. Thinks that it was due to him being so deconditioned. Has nausea, no vomiting. Appetite okay. No fever. No shortness of breath. Voiding okay. 10-14 NO NEW ISSUES TODAY DW RN AND PT 10-15 COMPLAINS OF NASAL ISSUES/ALLERGIES STARTED ON NASAL STEROIDS- HE STATES MUCH BETTER CONTINUE ANTIBIOTICS PT AND OT INCREASE ACTIVITY 10-16 TRANSFUSED 3UNITS PRBC YESTERDAY NO NEW COMPLAINTS SEEN AMBULATING IN THE ROOM NO SOB, NO CHEST PAIN DW RN AND PT AND CM Physical Exam Vital signs: Vital Signs 06/11/18 14:39 06/11/18 14:54 06/11/18 15:09 Temperature 98.1 F 98.1 F Pulse Rate 68 64 67 Respiratory Rate 20 20 Blood Pressure 115/70 101/57 L Pulse Oximetry 96 96 06/11/18 16:00 06/11/18 16:35 06/11/18 20:00 Temperature 98.2 F 98.7 F Pulse Rate 62 56 L 65 Respiratory Rate 18 14 Blood Pressure 101/60 111/61 Pulse Oximetry 98 97 06/11/18 23:09 06/11/18 23:55 06/11/18 23:57 Temperature 99.5 F 98.5 F 98.5 F Pulse Rate 71 70 74 Respiratory Rate 18 18 18 Blood Pressure 119/75 119/75 117/81 Pulse Oximetry 96 95 96 06/12/18 00:00 06/12/18 04:00 06/12/18 08:00 Temperature 97.5 F L 98.2 F Pulse Rate 71 60 72 Respiratory Rate 18 18 Blood Pressure 136/80 140/91 H Pulse Oximetry 98 98 06/12/18 09:47 Temperature Pulse Rate Respiratory Rate Blood Pressure Pulse Oximetry 98 Intake & Output 06/11/18 06/12/18 06/12/18 18:59 06:59 18:59 Intake Total 500 / 500 700 / 700 300 / 300 Output Total 250 / 250 Balance 500 / 500 450 / 450 300 / 300 Weight 72.7 kg Intake: IV 100 / 100 200 / 200 300 / 300 NS Inj 250 ML @ 15 mls/hr IV. 200 / 200 SIG ONCE ON LICENSE OF [facility] Rx#:[id number] Ancef Inj 2,000 MG In NS Inj 80 100 / 100 200 / 200 100 / 100 ML @ 100 mls/hr IV.SIG Q8H ON LICENSE OF [facility] Rx#:[id number] Other 100 / 100 Rbc As-3 Leukoreduced Unit 100 / 100 [id number] Intake (Blood Product) Amt 400 / 400 400 / 400 Rbc As-3 Leukoreduced Unit 400 / 400 [id number] Rbc As-3 Leukoreduced Unit 400 / 400 [id number] Output: Urine 250 / 250 Other: # Voids 1 Date of Last Bowel Movement 06/09/18 Narrative: GENERAL: Thin built, chronically ill-appearing male. SKIN: Warm and dry. Extra dry skin, peeling on bilateral foot with multiple skin discoloration, left fifth toe with necrotic area HEAD: Atraumatic. Normocephalic. EYES: Pupils equal and round. No scleral icterus. No injection or drainage. ENT: No nasal bleeding or discharge. Mucous membranes pink and moist. NECK: Trachea midline. No JVD. CARDIOVASCULAR: Regular rate and rhythm. S1-S2, unable to detect any murmurs rubs or gallops. RESPIRATORY: No accessory muscle use. Clear to auscultation. Breath sounds equal bilaterally. GASTROINTESTINAL: Abdomen soft, non-tender, nondistended. Hepatic and splenic margins not palpable. MUSCULOSKELETAL: Bilateral lower extremity with muscle atrophy. Pedal pulses 2+ . Left arm edema improving NEUROLOGICAL: Awake and alert. No obvious cranial nerve deficits. Motor grossly within normal limits. Generalized weakness, moving all 4 extremities. Normal speech. PSYCHIATRIC: Appropriate mood and affect; insight and judgment normal, cooperative. - Urinary Catheter Management Condom Cath placed during this visit: no Indwelling Urethral Catheter Cath placed during this visit: yes, but has since been removed by the nurse Reason for continuing: Decision to DC catheter Insertion date: 05/06/18 Insertion time: 16:40 Removal date: 05/14/18 Removal time: 08:00 Results - Labs CBC & Chem 7: 06/11/18 06:20 06/11/18 06:20 Laboratory Results - last 24 hr 05/25/18 06/11/18 16:57 11:57 Blood Type B Positive Antibody Screen Negative MTS Gel Crossmatch See Detail See Detail - Imaging ITS Impressions Chest CT 04/30/18 00:00 CONCLUSION: 1. Parenchymal process bilaterally most likely inflammatory and pneumonia. Head MRI 05/01/18 00:00 CONCLUSION: 1. Multifocal bilateral punctate infarcts, suspicious for embolic disease. 2. No midline shift or mass effect. Thoracic Spine MRI 05/06/18 00:00 CONCLUSION: 1. Negative thoracic MRI with no evidence of osteomyelitis or discitis. 2. Please see lumbar spine MRI for further details on findings in this region. Head CT 05/06/18 15:42 CONCLUSION: 1. No acute hemorrhage or mass effect. 2. The small bilateral known punctate infarcts seen on the MRI are not distinctly visualized. 3. Mucosal thickening in the ethmoidal air cells, sphenoid sinus and both maxillary sinuses. Abdomen/Bladder Ultrasound 05/08/18 00:00 CONCLUSION: 1. Trace perinephric fluid surrounding the right kidney. 2. Small right pleural effusion. 3. Otherwise normal sonographic appearance of the kidneys without evidence of hydronephrosis. Abdomen/Pelvis CT 05/23/18 00:00 CONCLUSION: 1. New moderate-sized area of left lower lobe atelectasis. 2. New small pericardial effusion. 3. New mild superficial soft tissue edema of the lateral anterior abdominal wall bilaterally. 4. Splenic infarct again noted. 5. Perinephric stranding again noted bilaterally. Lumbar Spine MRI 05/24/18 00:00 CONCLUSION: 1. Subcutaneous fluid as described above. This is decreased since prior of 04/2018. 2. No significant disc protrusion identified. No abnormal marrow signal seen within the vertebral bodies. Venous Doppler Study 05/24/18 00:00 CONCLUSION: 1. Occlusive superficial thrombus in the mid and distal portions of the cephalic vein. Deep venous system is patent. Chest X-Ray 06/05/18 00:00 CONCLUSION: No acute intrathoracic disease. - Procedures AURELIA Assessment and Plan - Assessment (1) Altered mental status Code(s): R41.82 - Altered mental status, unspecified Status: Acute (2) Endocarditis Code(s): I38 - Endocarditis, valve unspecified Status: Acute (3) Sepsis Code(s): A41.9 - Sepsis, unspecified organism Status: Acute (4) Hyponatremia Code(s): E87.1 - Hypo-osmolality and hyponatremia Status: Acute - Plan Patient is 30 years old male with history of IV drug use previous endocarditis, hepatitis C, who presented to the ED with acute psychosis and altered mental status. Severe sepsis / MSSA infective endocarditis/ Haemophilus influenza pneumonia. 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 -Neurology consult for embolic bilateral infarcts. Dr. Mike. -Continue aspirin -Continue supplement multivitamin thiamine -PT/OT eval and treat, out of bed Pneumonia/septic emboli/ Respiratory insufficiency-resolved -DuoNeb every 6 hours as needed -Sputum culture 05/09 H Influenzae -CT chest shows bilateral infiltrates -ID following -cont IV antibiotics Cefazolin until 06/20/18 per ID Lactic acidosis-resolved NSTEMI/Infective endocarditis/Persistent tachycardia/Hypertension -AURELIA shows large mitral valve vegetation (05/03) -Continue aspirin -Avoid statins at this time due to hep C -Elevated troponin may be secondary to coronary artery septic emboli -continue Lopressor , better rate and BP control Acute Kidney Injury/Hypocalcemia -Nephrology consulted - S/P HD T-TH- Sat, finished HD per nephrology recommendation -HD catheter removed - avoid nephrotoxins -creat improving, creat 1.83. Making urine -Change to Bumex PO 1 mg BID Chest pain on 06/05. Trop elevated NSTEMI Type II Trop, CXR and EKG done -Appreciate card input -Echo done, EF 50-55% -Trop elevated, CXR and EKG done -Continue ASA and BB Hepatitis C -O/p f/u -Continue regular diet. Anemia- of chronic disease- - s/p PRBC transfusion on 05/25- H/H improved after transfusion- was on Epogen as well during HD - continue to monitor, HH 7.3/22.2 -continue MVI, monitor CBC TRANSFUSED 3 UNITS ON - Chronic Pain- history of IVDU -continue on methadone 5 mg daily, pain controlled -monitor response Left UE Thrombus Venous Doppler left UE: Occlusive superficial thrombus in the mid and distal portions of the cephalic vein. Deep venous system is patent. -elevate left UE -monitor Bilateral foot/extra dry skin -soak in luke warm water -apply petroleum jelly -keep skin moisturized SEASONAL ALLERGIES- STARTED ON NASAL STEROIDS WITH IMPROVEMENT DVT PROPH: increase ambulation -Bilateral lower extremity SCDs. Code Status: FULL CODE Discussed Condition With: RN AND PT AND CM Discharge Planning: Plan for discharge when cleared with ID and antibiotic treatment finished, tentative Jun 20, 2018 (3) Sepsis Qualifiers: Sepsis type: sepsis due to unspecified organism Qualified Code(s): A41.9 - Sepsis, unspecified organism
[2018-06-12 12:55] LABS: Baso # (Auto) 0.1 th/mm3 (0.0-0.2); Eos # (Auto) 0.7 th/mm3 (0.0-0.4); Hematocrit 30.1 % (39.0-51.0); Hemoglobin 9.9 gm/dL (13.0-17.0); Lymph # (Auto) 1.4 th/mm3 (1.0-4.8); Lymph % (Auto) 19.4 % (9.0-44.0); Mean Corpuscular HGB Conc 33.1 % (32.0-36.0); Mean Corpuscular Volume 84.7 fL (80.0-100.0); Mean Platelet Volume 7.5 fL (7.0-11.0); Mono # (Auto) 0.9 th/mm3 (0.0-0.9); Mono % (Auto) 12.9 % (0.0-8.0); Neut % (Auto) 56.7 % (16.0-70.0); Platelet Count 453 th/mm3 (150-450); Red Blood Count 3.55 mil/mm3 (4.50-5.90); Red Cell Distribution Width 16.1 % (11.6-17.2); White Blood Count 7.1 th/mm3 (4.0-11.0)
[2018-06-13] MEDS: ceFAZolin Inj 2,000 MG in Sodium Chlor 0.9% Inj 80 ML IV.SIG SCH ×3 (01:42→17:58)
[2018-06-13] MEDS: Acetaminophen 325 MG Tablet PO PRN ×3 (01:48→18:46)
[2018-06-13 08:19] LABS: Baso # (Auto) 0.1 th/mm3 (0.0-0.2); Baso % (Auto) 1.2 % (0.0-2.0); Eos # (Auto) 0.7 th/mm3 (0.0-0.4); Eos % (Auto) 10.7 % (0.0-4.0); Hematocrit 30.8 % (39.0-51.0); Hemoglobin 10.2 gm/dL (13.0-17.0); Lymph # (Auto) 1.3 th/mm3 (1.0-4.8); Lymph % (Auto) 20.1 % (9.0-44.0); Mean Corpuscular Hemoglobin 27.9 pg (27.0-34.0); Mean Corpuscular Volume 84.5 fL (80.0-100.0); Mean Platelet Volume 7.9 fL (7.0-11.0); Mono # (Auto) 0.9 th/mm3 (0.0-0.9); Mono % (Auto) 13.4 % (0.0-8.0); Neut # (Auto) 3.6 th/mm3 (1.8-7.7); Neut % (Auto) 54.6 % (16.0-70.0); Platelet Count 455 th/mm3 (150-450); Red Blood Count 3.65 mil/mm3 (4.50-5.90); Red Cell Distribution Width 15.9 % (11.6-17.2); White Blood Count 6.6 th/mm3 (4.0-11.0)
[2018-06-13 08:57] LABS: Albumin 2.7 g/dL (3.4-5.0); Anion Gap 8 meq/L (5-15); Aspartate Aminotransferase 26 U/L (15-37); Blood Urea Nitrogen 34 mg/dL (7-18); Calcium 8.9 mg/dL (8.5-10.1); Carbon Dioxide 23.6 meq/L (21.0-32.0); Chloride 106 meq/L (98-107); Glomerular Filtration Rate 50 mL/min (>89); Glucose,Random 76 mg/dL (74-106); Magnesium 1.9 mg/dL (1.5-2.5); Potassium 4.1 meq/L (3.5-5.1); Sodium 138 meq/L (136-145)
[2018-06-13 08:58] LABS: Alanine Aminotransferase 9 U/L (12-78); Phosphorus 4.1 mg/dL (2.5-4.9)
[2018-06-13 08:59] LABS: Alkaline Phosphatase 104 U/L (45-117); Total Protein 8.4 g/dL (6.4-8.2)
[2018-06-13] MEDS: Multivitamin/Minerals Therapeutic Tablet PO SCH (10:08)
[2018-06-13] MEDS: Famotidine 20 MG Tablet PO SCH ×2 (10:08→20:57)
[2018-06-13] MEDS: Methadone 10 MG Tablet PO SCH (10:09)
[2018-06-13] MEDS: Metoprolol Tartrate 50 MG Tablet PO SCH ×3 (10:09→17:58)
[2018-06-13] MEDS: Senna/Docusate Sodium 8.6/50 MG Tablet PO SCH ×2 (10:10→20:58)
[2018-06-13] MEDS: Sodium Chloride 0.9% 2 ML Flush BID IV.FLUSH SCH ×2 (10:10→20:58)
--- NOTE | 2018-06-13 11:07 | P.PNIM ---
Subjective Interval history: Follow up endocarditis. Patient in no distress, only complaint is pain to left hand with swelling at left pointer finger. No chest pain, sob, fever or chills noted. Physical Exam Vital signs: Vital Signs 06/12/18 12:00 06/12/18 16:00 06/12/18 20:00 Temperature 95.9 F L 98.6 F 98.1 F Pulse Rate 68 68 65 Respiratory Rate 19 18 16 Blood Pressure 101/62 115/69 117/83 Pulse Oximetry 97 97 97 06/13/18 00:00 06/13/18 04:00 06/13/18 08:00 Temperature 97.8 F 98.1 F 97.7 F Pulse Rate 57 L 62 70 Respiratory Rate 16 16 16 Blood Pressure 114/87 121/86 145/91 H Pulse Oximetry 96 97 95 Intake & Output 06/12/18 06/13/18 06/13/18 18:59 06:59 18:59 Intake Total 1360 / 1360 580 / 580 Output Total 300 / 300 Balance 1360 / 1360 280 / 280 Weight 73 kg Intake: IV 400 / 400 100 / 100 NS Inj 250 ML @ 15 mls/hr IV. 200 / 200 SIG ONCE STEFFANIE Rx#:[id number] Ancef Inj 2,000 MG In NS Inj 80 200 / 200 100 / 100 ML @ 100 mls/hr IV.SIG Q8H STEFFANIE Rx#:[id number] Oral 960 / 960 480 / 480 Output: Urine 300 / 300 Other: # Voids 7 Date of Last Bowel Movement 06/09/18 06/12/18 # Bowel Movements 0 Narrative: GENERAL: Thin built, chronically ill-appearing male. SKIN: Warm and dry. Extra dry skin, peeling on bilateral foot with multiple skin discoloration, left fifth toe with necrotic area HEAD: Atraumatic. Normocephalic. EYES: Pupils equal and round. No scleral icterus. No injection or drainage. ENT: No nasal bleeding or discharge. Mucous membranes pink and moist. NECK: Trachea midline. No JVD. CARDIOVASCULAR: Regular rate and rhythm. S1-S2, unable to detect any murmurs rubs or gallops. RESPIRATORY: No accessory muscle use. Clear to auscultation. Breath sounds equal bilaterally. GASTROINTESTINAL: Abdomen soft, non-tender, nondistended. Hepatic and splenic margins not palpable. MUSCULOSKELETAL: Bilateral lower extremity with muscle atrophy. Pedal pulses 2+ . Left arm edema improving NEUROLOGICAL: Awake and alert. No obvious cranial nerve deficits. Motor grossly within normal limits. Generalized weakness, moving all 4 extremities. Normal speech. PSYCHIATRIC: Appropriate mood and affect; insight and judgment normal, cooperative. - Urinary Catheter Management Condom Cath placed during this visit: no Indwelling Urethral Catheter Cath placed during this visit: yes, but has since been removed by the nurse Reason for continuing: Decision to DC catheter Insertion date: 05/06/18 Insertion time: 16:40 Removal date: 05/14/18 Removal time: 08:00 Results - Labs CBC & Chem 7: 06/13/18 07:33 06/13/18 07:33 Laboratory Results - last 24 hr 06/12/18 06/13/18 06/13/18 12:22 07:33 07:33 WBC 7.1 6.6 RBC 3.55 L 3.65 L Hgb 9.9 L D 10.2 L Hct 30.1 L 30.8 L MCV 84.7 84.5 MCH 28.0 27.9 MCHC 33.1 33.0 RDW 16.1 15.9 Plt Count 453 H 455 H MPV 7.5 7.9 Neut % (Auto) 56.7 54.6 Lymph % (Auto) 19.4 20.1 [place] % (Auto) 12.9 H 13.4 H Eos % (Auto) 10.0 H 10.7 H Baso % (Auto) 1.0 1.2 Neut # (Auto) 4.0 3.6 Lymph # (Auto) 1.4 1.3 [place] # (Auto) 0.9 0.9 Eos # (Auto) 0.7 H 0.7 H Baso # (Auto) 0.1 0.1 WBC Differential . . Differential Comment Auto diff final Auto diff final Sodium 138 Potassium 4.1 Chloride 106 Carbon Dioxide 23.6 Anion Gap 8 BUN 34 H Creatinine 1.57 H Estimated GFR 50 L Random Glucose 76 Calcium 8.9 Phosphorus 4.1 Magnesium 1.9 Total Bilirubin 0.4 AST 26 ALT 9 L Alkaline Phosphatase 104 Total Protein 8.4 H Albumin 2.7 L - Procedures AURELIA Assessment and Plan - Assessment (1) Altered mental status Code(s): R41.82 - Altered mental status, unspecified Status: Acute (2) Endocarditis Code(s): I38 - Endocarditis, valve unspecified Status: Acute (3) Sepsis Code(s): A41.9 - Sepsis, unspecified organism Status: Acute (4) Hyponatremia Code(s): E87.1 - Hypo-osmolality and hyponatremia Status: Acute - Plan Patient is 30 years old male with history of IV drug use previous endocarditis, hepatitis C, who presented to the ED with acute psychosis and altered mental status. Severe sepsis / MSSA infective endocarditis/ Haemophilus influenza pneumonia. leukocytosis, diarrhea resolved -Blood culture with GPC 4 staph aureus on 05/02/18, 05/20 Blood Cx no growth x 5 days -repeat C-diff negative and repeated MRI lumbar spine with decreased size of posterior fluid collection -venous doppler of the left upper extremity with superficial phlebitis -ID following- continue IV antbx Cefazolin until 06/20/18 per ID recommendation -monitor sign and symptoms Acute metabolic encephalopathy- mental status improved Multifocal bilateral punctate infarcts, probable septic emboli Polysubstance abuse with withdrawal -MRI brain shows Multifocal bilateral punctate infarcts, suspicious for embolic disease. -Neurology consult for embolic bilateral infarcts. Dr. Mike. -Continue aspirin -Continue supplement multivitamin thiamine -PT/OT eval and treat, out of bed Pneumonia/septic emboli/ Respiratory insufficiency-resolved -DuoNeb every 6 hours as needed -Sputum culture 05/09 H Influenzae -CT chest shows bilateral infiltrates -ID following -cont IV antibiotics Cefazolin until 06/20/18 per ID Lactic acidosis-resolved NSTEMI/Infective endocarditis/Persistent tachycardia/Hypertension -AURELIA shows large mitral valve vegetation (05/03) -Continue aspirin -Avoid statins at this time due to hep C -Elevated troponin may be secondary to coronary artery septic emboli -continue Lopressor , better rate and BP control Acute Kidney Injury/Hypocalcemia, resolved -Nephrology consulted - S/P HD T-TH- Sat, finished HD per nephrology recommendation -HD catheter removed - avoid nephrotoxins -creat improving, creat 1.83. Making urine -Change to Bumex PO 1 mg BID Chest pain on 06/05. Trop elevated NSTEMI Type II Trop, CXR and EKG done -Appreciate card input, cardiology signed off -Echo done, EF 50-55% -Trop elevated, CXR and EKG done -Continue ASA and BB Hepatitis C -O/p f/u -Continue regular diet. Anemia- of chronic disease- - s/p PRBC transfusion on 05/25- H/H improved after transfusion- was on Epogen as well during HD - continue to monitor, HH 7.3/22.2 -continue MVI, monitor CBC -TRANSFUSED 3 UNITS ON -, hgb stable 10.2, continue to monitor Chronic Pain- history of IVDU -continue on methadone 5 mg daily, pain controlled -monitor response Left UE Thrombus Venous Doppler left UE: Occlusive superficial thrombus in the mid and distal portions of the cephalic vein. Deep venous system is patent. -elevate left UE -monitor Bilateral foot/extra dry skin -soak in luke warm water -apply petroleum jelly -keep skin moisturized -Wound care consulted SEASONAL ALLERGIES- STARTED ON NASAL STEROIDS WITH IMPROVEMENT Left pointer finger swelling/pain, denies trauma -Hand xray ordered and is negative -Uric acid wnl -Flexeril given for pain -Pain wants Motrin, but will avoid due to kidney function DVT PROPH: increase ambulation -Bilateral lower extremity SCDs. Discussed Condition With: Patient and RN (3) Sepsis Qualifiers: Sepsis type: sepsis due to unspecified organism Qualified Code(s): A41.9 - Sepsis, unspecified organism
--- NOTE | 2018-06-13 11:46 | XR ---
EXAM DATE: 06/13/2018 12:00 AM EDT AGE/SEX: 38 years / Male INDICATIONS: Left hand, joint pain. CLINICAL DATA: This is the patient's initial encounter. Patient reports that signs and symptoms have been present for 1 month and indicates a pain score of 6/10. MEDICAL/SURGICAL HISTORY: Hypertension. Hepatitis C. hx of blood clot in left arm., endocardit is, coronary artery disease. None. COMPARISON: [facility] [place], [facility] LEFT (2VWS), 06/10/2011. . FINDINGS: Bony structures are intact and in normal alignment. Osseous density is normal. Soft tissues are unre markable. No radiopaque foreign bodies seen. CONCLUSION: Negative examination Electronically signed by: René Lebron MD 06/13/2018 11:44 AM EDT
--- NOTE | 2018-06-13 15:18 | P.PNWCN ---
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 We do not want to soften the outer layer of skin covering the wound, that will cause wound to become "open". Additional information: Patient seen on for wound evaluation of left 5th digit healing DTI. Wound/Pressure Injury - Patient Status Premedicated for Pain Prior to Dressing Change: No - Wound Left Toe - 5th Digit Wound Staging: DTI (resolving) Wound Assessment: Ongoing Wound Type: Pressure Injury Is This a Chronic Wound: No Requested from Provider a Wound Care Consult: Yes Length (cm): 1 (cm) Width (cm): 1 (cm) Depth (cm): 0 (cm) Wound Bed Appearance: Unstable dry deflated blister with hard hyperkeratotic wound margins that have lifted from the wound base and is now only attached in the center where there is a purple discoloration noted. Drainage Amount: None Dressing Status: Open to Air Topical: Cavilon spray - Additional Information It was explained to the patient that we do not want to tear off the hardened skin covering his wound or open up the wound. The objective is to keep the wound covered with his dry skin to allow the wound to heal from inside out. The scab will eventually fall off. He is to keep the wound free from pressure or rubbing. Patient has slides for footwear next to his bed that he states does not rub on his toe.
--- NOTE | 2018-06-13 16:44 | P.PNID ---
Subjective Remarks: delaeyd entry pt was seen earlier today no new c/o tolerates abx OK Antibiotics: ancef Past Medical History: IVDU Allergies/Adverse Reactions: Allergies No Known Allergies Allergy (Unknown, Uncoded 07/13/17 00:28) Objective Vital Signs 06/12/18 20:00 06/13/18 00:00 06/13/18 04:00 Temperature 98.1 F 97.8 F 98.1 F Pulse Rate 65 57 L 62 Respiratory Rate 16 16 16 Blood Pressure 117/83 114/87 121/86 Pulse Oximetry 97 96 97 06/13/18 08:00 06/13/18 12:00 Temperature 97.7 F 97.8 F Pulse Rate 70 73 Respiratory Rate 16 16 Blood Pressure 145/91 H 136/97 H Pulse Oximetry 95 96 Intake & Output 06/12/18 06/13/18 06/13/18 18:59 06:59 18:59 Intake Total 1360 / 1360 580 / 580 100 / 100 Output Total 300 / 300 Balance 1360 / 1360 280 / 280 100 / 100 Weight 73 kg Intake: IV 400 / 400 100 / 100 100 / 100 NS Inj 250 ML @ 15 mls/hr IV. 200 / 200 SIG ONCE STEFFANIE Rx#:[id number] Ancef Inj 2,000 MG In NS Inj 80 200 / 200 100 / 100 100 / 100 ML @ 100 mls/hr IV.SIG Q8H STEFFANIE Rx#:[id number] Oral 960 / 960 480 / 480 Output: Urine 300 / 300 Other: # Voids 7 Date of Last Bowel Movement 06/09/18 06/12/18 # Bowel Movements 0 Lab - Hematology Results 06/12/18 06/13/18 12:22 07:33 WBC 7.1 6.6 RBC 3.55 L 3.65 L Hgb 9.9 L D 10.2 L Hct 30.1 L 30.8 L MCV 84.7 84.5 MCH 28.0 27.9 MCHC 33.1 33.0 RDW 16.1 15.9 Plt Count 453 H 455 H MPV 7.5 7.9 Neut % (Auto) 56.7 54.6 Lymph % (Auto) 19.4 20.1 [place] % (Auto) 12.9 H 13.4 H Eos % (Auto) 10.0 H 10.7 H Baso % (Auto) 1.0 1.2 Neut # (Auto) 4.0 3.6 Lymph # (Auto) 1.4 1.3 [place] # (Auto) 0.9 0.9 Eos # (Auto) 0.7 H 0.7 H Baso # (Auto) 0.1 0.1 WBC Differential . . Differential Comment Auto diff final Auto diff final Lab - Chemistry Results 06/13/18 06/13/18 07:33 07:33 Sodium 138 Potassium 4.1 Chloride 106 Carbon Dioxide 23.6 Anion Gap 8 BUN 34 H Creatinine 1.57 H Estimated GFR 50 L Random Glucose 76 Uric Acid 5.9 Calcium 8.9 Phosphorus 4.1 Magnesium 1.9 Total Bilirubin 0.4 AST 26 ALT 9 L Alkaline Phosphatase 104 Total Protein 8.4 H Albumin 2.7 L Imaging: ITS Impressions Chest CT 04/30/18 00:00 CONCLUSION: 1. Parenchymal process bilaterally most likely inflammatory and pneumonia. Head MRI 05/01/18 00:00 CONCLUSION: 1. Multifocal bilateral punctate infarcts, suspicious for embolic disease. 2. No midline shift or mass effect. Thoracic Spine MRI 05/06/18 00:00 CONCLUSION: 1. Negative thoracic MRI with no evidence of osteomyelitis or discitis. 2. Please see lumbar spine MRI for further details on findings in this region. Head CT 05/06/18 15:42 CONCLUSION: 1. No acute hemorrhage or mass effect. 2. The small bilateral known punctate infarcts seen on the MRI are not distinctly visualized. 3. Mucosal thickening in the ethmoidal air cells, sphenoid sinus and both maxillary sinuses. Abdomen/Bladder Ultrasound 05/08/18 00:00 CONCLUSION: 1. Trace perinephric fluid surrounding the right kidney. 2. Small right pleural effusion. 3. Otherwise normal sonographic appearance of the kidneys without evidence of hydronephrosis. Abdomen/Pelvis CT 05/23/18 00:00 CONCLUSION: 1. New moderate-sized area of left lower lobe atelectasis. 2. New small pericardial effusion. 3. New mild superficial soft tissue edema of the lateral anterior abdominal wall bilaterally. 4. Splenic infarct again noted. 5. Perinephric stranding again noted bilaterally. Lumbar Spine MRI 05/24/18 00:00 CONCLUSION: 1. Subcutaneous fluid as described above. This is decreased since prior of 04/2018. 2. No significant disc protrusion identified. No abnormal marrow signal seen within the vertebral bodies. Venous Doppler Study 05/24/18 00:00 CONCLUSION: 1. Occlusive superficial thrombus in the mid and distal portions of the cephalic vein. Deep venous system is patent. Chest X-Ray 06/05/18 00:00 CONCLUSION: No acute intrathoracic disease. Hand X-Ray 06/13/18 00:00 CONCLUSION: Negative examination Physical Exam: GENERAL: NAD SKIN: Warm and dry. HEAD: Atraumatic. Normocephalic. EYES: Pupils equal and round. No scleral icterus. No injection or drainage. NECK: supple CARDIOVASCULAR: Regular rate and rhythm. + systolic murmur 2/6 RESPIRATORY: No accessory muscle use. Clear to auscultation. Breath sounds equal bilaterally. GASTROINTESTINAL: Abdomen soft, very tender RLQ/LLQ, moderately distended. Hepatic and splenic margins not palpable. MUSCULOSKELETAL: Extremities without clubbing, cyanosis, or edema. No obvious deformities. 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 Soft tissue abscess L area - not present on US PNA, H flu: clincially resolved Diarrhea, abx associated, C.diff negative 2/2 Persistent diarrhea - resolved Persistent fever: resolved Persisten leukocytosis - slowly improving Occlusive superficial thrombus in the mid and distal portions of the cephalic vein, no DVT - clinically improving Still has fluid collection in L spine area subcutaneously, but no vertebral changes . and its is significantly smaller - cont cefazoline adjusted renally anticipate 6 weeks from 1st negative blood clx unless metastatic infections will require longer tx duration (Stop date Jun 20) monitor WBC, fever - monitor GFR - rechk urine eos
[2018-06-14] MEDS: ceFAZolin Inj 2,000 MG in Sodium Chlor 0.9% Inj 80 ML IV.SIG SCH ×3 (01:14→17:14)
[2018-06-14] MEDS: Acetaminophen 325 MG Tablet PO PRN ×4 (02:00→22:20)
[2018-06-14] MEDS: Famotidine 20 MG Tablet PO SCH ×2 (09:40→20:07)
[2018-06-14] MEDS: Metoprolol Tartrate 50 MG Tablet PO SCH ×3 (09:40→17:14)
[2018-06-14] MEDS: Multivitamin/Minerals Therapeutic Tablet PO SCH (09:41)
[2018-06-14] MEDS: Senna/Docusate Sodium 8.6/50 MG Tablet PO SCH ×2 (09:41→20:07)
[2018-06-14] MEDS: Methadone 10 MG Tablet PO SCH (09:42)
[2018-06-14] MEDS: Sodium Chloride 0.9% 2 ML Flush BID IV.FLUSH SCH ×2 (09:42→20:07)
--- NOTE | 2018-06-14 13:55 | P.PN ---
Subjective Interval history: good po no diarrhea "slight sore"- forefinger- d/w Xray- no fracture no arm pain Physical Exam Vital signs: Vital Signs 06/13/18 16:00 06/13/18 20:00 06/14/18 00:00 Temperature 98.0 F 98.1 F 97.9 F Pulse Rate 64 66 98 H Respiratory Rate 16 16 16 Blood Pressure 104/64 108/66 119/69 Pulse Oximetry 97 96 98 06/14/18 04:00 06/14/18 08:00 06/14/18 12:00 Temperature 98.2 F 97.8 F 98.1 F Pulse Rate 68 68 68 Respiratory Rate 16 18 16 Blood Pressure 112/61 130/90 131/80 Pulse Oximetry 97 97 97 Intake & Output 06/13/18 06/14/18 06/14/18 18:59 06:59 18:59 Intake Total 520 / 520 440 / 440 Output Total 1999 / 1999 300 / 300 Balance -1480 / -1480 140 / 140 Weight 72.7 kg Intake: IV 100 / 100 200 / 200 Ancef Inj 2,000 MG In NS Inj 80 100 / 100 200 / 200 ML @ 100 mls/hr IV.SIG Q8H STEFFANIE Rx#:[id number] Oral 420 / 420 240 / 240 Output: Urine 1999 300 / 300 Other: Date of Last Bowel Movement 06/13/18 # Bowel Movements 1 Narrative: GENERAL: Thin built, no distress, interactive SKIN: Warm and dry. Extra dry skin, peeling on bilateral foot with multiple skin discoloration, left fifth toe with necrotic area HEAD: Atraumatic. Normocephalic. EYES: Pupils equal and round. No scleral icterus. No injection or drainage. ENT: No nasal bleeding or discharge. Mucous membranes pink and moist. NECK: Trachea midline. No JVD. CARDIOVASCULAR: Regular rate and rhythm. S1-S2, unable to detect any murmurs rubs or gallops. RESPIRATORY: No accessory muscle use. Clear to auscultation. Breath sounds equal bilaterally. GASTROINTESTINAL: Abdomen soft, non-tender, nondistended. Hepatic and splenic margins not palpable. MUSCULOSKELETAL: Bilateral lower extremity with muscle atrophy. Pedal pulses 2+ . Left arm edema improving. UE- no induration, no swelling, good pulses NEUROLOGICAL: Awake and alert. No obvious cranial nerve deficits. Motor grossly within normal limits. Generalized weakness, moving all 4 extremities. Normal speech. PSYCHIATRIC: Appropriate mood and affect; insight and judgment normal, cooperative. - Urinary Catheter Management Condom Cath placed during this visit: no Indwelling Urethral Catheter Cath placed during this visit: yes, but has since been removed by the nurse Reason for continuing: Decision to DC catheter Insertion date: 05/06/18 Insertion time: 16:40 Removal date: 05/14/18 Removal time: 08:00 Results - Labs CBC & Chem 7: 06/13/18 07:33 06/13/18 07:33 - Procedures AURELIA Assessment and Plan - Assessment (1) Altered mental status Code(s): R41.82 - Altered mental status, unspecified Status: Acute (2) Endocarditis Code(s): I38 - Endocarditis, valve unspecified Status: Acute (3) Sepsis Code(s): A41.9 - Sepsis, unspecified organism Status: Acute (4) Hyponatremia Code(s): E87.1 - Hypo-osmolality and hyponatremia Status: Acute - Plan Patient is 38 years old male with history of IV drug use previous endocarditis, hepatitis C, who presented to the ED with acute psychosis and altered mental status. Severe sepsis / MSSA infective endocarditis/ Haemophilus influenza pneumonia. 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 -Neurology consult for embolic bilateral infarcts. Dr. Mike. -Continue aspirin -Continue supplement multivitamin thiamine -PT/OT eval and treat, out of bed Pneumonia/septic emboli/ Respiratory insufficiency-resolved -DuoNeb every 6 hours as needed -Sputum culture 05/09 H Influenzae -CT chest shows bilateral infiltrates -ID following -cont IV antibiotics Cefazolin until 06/20/18 per ID Lactic acidosis-resolved NSTEMI/Infective endocarditis/Persistent tachycardia/Hypertension -AURELIA shows large mitral valve vegetation (05/03) -Continue aspirin -Avoid statins at this time due to hep C -Elevated troponin may be secondary to coronary artery septic emboli -continue Lopressor , better rate and BP control Acute Kidney Injury/Hypocalcemia, resolved -Nephrology consulted - S/P HD T-TH- Sat, finished HD per nephrology recommendation -HD catheter removed - avoid nephrotoxins -creat improving, creat 1.83. Making urine -Change to Bumex PO 1 mg BID Chest pain on 06/05. Trop elevated NSTEMI Type II Trop, CXR and EKG done -Appreciate card input, cardiology signed off -Echo done, EF 50-55% -Trop elevated, CXR and EKG done -Continue ASA and BB Hepatitis C -O/p f/u -Continue regular diet. Anemia- of chronic disease- - s/p PRBC transfusion on 05/25- H/H improved after transfusion- was on Epogen as well during HD - continue to monitor, HH 7.3/22.2 -continue MVI, monitor CBC -TRANSFUSED 3 UNITS ON -, hgb stable 10.2, continue to monitor Chronic Pain- history of IVDU -continue on methadone 5 mg daily, pain controlled -monitor response Left UE Thrombus- exam- no inudration, good range of motion, good pulses Venous Doppler left UE: Occlusive superficial thrombus in the mid and distal portions of the cephalic vein. Deep venous system is patent. -elevate left UE -monitor Bilateral foot/extra dry skin -soak in luke warm water -apply petroleum jelly -keep skin moisturized -Wound care consulted SEASONAL ALLERGIES- STARTED ON NASAL STEROIDS WITH IMPROVEMENT Left pointer finger swelling/pain, denies trauma -Hand xray ordered and is negative -Uric acid wnl -Flexeril given for pain -Pain wants Motrin, but will avoid due to kidney function DVT PROPH: increase ambulation -Bilateral lower extremity SCDs. Discussed Condition With: Patient and RN (3) Sepsis Qualifiers: Sepsis type: sepsis due to unspecified organism Qualified Code(s): A41.9 - Sepsis, unspecified organism
[2018-06-15] MEDS: ceFAZolin Inj 2,000 MG in Sodium Chlor 0.9% Inj 80 ML IV.SIG SCH ×3 (01:07→17:57)
[2018-06-15] MEDS: Famotidine 20 MG Tablet PO SCH ×2 (08:45→20:32)
[2018-06-15] MEDS: Multivitamin/Minerals Therapeutic Tablet PO SCH (08:45)
[2018-06-15] MEDS: Methadone 10 MG Tablet PO SCH (08:45)
[2018-06-15] MEDS: Senna/Docusate Sodium 8.6/50 MG Tablet PO SCH ×2 (08:46→20:33)
[2018-06-15] MEDS: Metoprolol Tartrate 50 MG Tablet PO SCH ×3 (08:46→18:01)
[2018-06-15] MEDS: Sodium Chloride 0.9% 2 ML Flush BID IV.FLUSH SCH ×2 (08:46→20:33)
[2018-06-15] MEDS: Acetaminophen 325 MG Tablet PO PRN ×3 (11:28→23:44)
--- NOTE | 2018-06-15 12:49 | P.PN ---
Subjective Interval history: complain of back spasms took a shower Physical Exam Vital signs: Vital Signs 06/14/18 16:00 06/14/18 20:00 06/15/18 00:00 Temperature 98.2 F 97.8 F 97.8 F Pulse Rate 61 68 65 Respiratory Rate 18 16 16 Blood Pressure 119/72 106/55 L 111/65 Pulse Oximetry 97 97 98 06/15/18 04:00 06/15/18 08:00 06/15/18 12:00 Temperature 97.9 F 98.1 F 97.7 F Pulse Rate 70 68 73 Respiratory Rate 16 18 18 Blood Pressure 109/60 121/83 112/60 Pulse Oximetry 97 97 96 Intake & Output 06/14/18 06/15/18 06/15/18 18:59 06:59 18:59 Intake Total 1296 / 1296 580 / 580 100 / 100 Output Total 1200 / 1200 Balance 96 / 96 580 / 580 100 / 100 Weight 72 kg Intake: IV 200 / 200 100 / 100 100 / 100 Ancef Inj 2,000 MG In NS Inj 80 200 / 200 100 / 100 100 / 100 ML @ 100 mls/hr IV.SIG Q8H [facility] Rx#:[id number] Oral 1096 / 1096 480 / 480 Output: Urine 1200 / 1200 Other: # Voids 4 Date of Last Bowel Movement 06/13/18 06/13/18 06/13/18 # Bowel Movements 1 0 Narrative: GENERAL: Thin built, no distress, interactive SKIN: Warm and dry. Extra dry skin, peeling on bilateral foot with multiple skin discoloration, left fifth toe with necrotic area HEAD: Atraumatic. Normocephalic. EYES: Pupils equal and round. No scleral icterus. No injection or drainage. ENT: No nasal bleeding or discharge. Mucous membranes pink and moist. NECK: Trachea midline. No JVD. CARDIOVASCULAR: Regular rate and rhythm. S1-S2, unable to detect any murmurs rubs or gallops. RESPIRATORY: No accessory muscle use. Clear to auscultation. Breath sounds equal bilaterally. GASTROINTESTINAL: Abdomen soft, non-tender, nondistended. Hepatic and splenic margins not palpable. MUSCULOSKELETAL: Bilateral lower extremity with muscle atrophy. Pedal pulses 2+ . Left arm edema improving. UE- no induration, no swelling, good pulses left forefinger- slightly sweollen, no erythema, good range of motion, ++ radial pulses NEUROLOGICAL: Awake and alert. No obvious cranial nerve deficits. Motor grossly within normal limits. Generalized weakness, moving all 4 extremities. Normal speech. PSYCHIATRIC: Appropriate mood and affect; insight and judgment normal, cooperative. - Urinary Catheter Management Condom Cath placed during this visit: no Indwelling Urethral Catheter Cath placed during this visit: yes, but has since been removed by the nurse Reason for continuing: Decision to DC catheter Insertion date: 05/06/18 Insertion time: 16:40 Removal date: 05/14/18 Removal time: 08:00 Results - Labs CBC & Chem 7: 06/13/18 07:33 06/13/18 07:33 - Procedures AURELIA Assessment and Plan - Assessment (1) Altered mental status Code(s): R41.82 - Altered mental status, unspecified Status: Acute (2) Endocarditis Code(s): I38 - Endocarditis, valve unspecified Status: Acute (3) Sepsis Code(s): A41.9 - Sepsis, unspecified organism Status: Acute (4) Hyponatremia Code(s): E87.1 - Hypo-osmolality and hyponatremia Status: Acute - Plan Patient is 38 years old male with history of IV drug use previous endocarditis, hepatitis C, who presented to the ED with acute psychosis and altered mental status. Severe sepsis / MSSA infective endocarditis/ Haemophilus influenza pneumonia. 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 -Neurology consult for embolic bilateral infarcts. Dr. Mike. -Continue aspirin -Continue supplement multivitamin thiamine -PT/OT eval and treat, out of bed Pneumonia/septic emboli/ Respiratory insufficiency-resolved -DuoNeb every 6 hours as needed -Sputum culture 05/09 H Influenzae -CT chest shows bilateral infiltrates -ID following -cont IV antibiotics Cefazolin until 06/20/18 per ID Lactic acidosis-resolved NSTEMI/Infective endocarditis/Persistent tachycardia/Hypertension -AURELIA shows large mitral valve vegetation (05/03) -Continue aspirin -Avoid statins at this time due to hep C -Elevated troponin may be secondary to coronary artery septic emboli -continue Lopressor , better rate and BP control Acute Kidney Injury/Hypocalcemia, resolved -Nephrology consulted - S/P HD T-TH- Sat, finished HD per nephrology recommendation -HD catheter removed - avoid nephrotoxins -creat improving, creat 1.83. Making urine -Change to Bumex PO 1 mg BID Chest pain on 06/05. Trop elevated NSTEMI Type II Trop, CXR and EKG done -Appreciate card input, cardiology signed off -Echo done, EF 50-55% -Trop elevated, CXR and EKG done -Continue ASA and BB Hepatitis C -O/p f/u -Continue regular diet. Anemia- of chronic disease- - s/p PRBC transfusion on 05/25- H/H improved after transfusion- was on Epogen as well during HD - continue to monitor, HH 7.3/22.2 -continue MVI, monitor CBC -TRANSFUSED 3 UNITS ON -, hgb stable 10.2, continue to monitor Chronic Pain- history of IVDU -continue on methadone 5 mg daily, pain controlled -monitor response Left UE Thrombus- exam- no inudration, good range of motion, good pulses Venous Doppler left UE: Occlusive superficial thrombus in the mid and distal portions of the cephalic vein. Deep venous system is patent. -elevate left UE -monitor Bilateral foot/extra dry skin -soak in luke warm water -apply petroleum jelly -keep skin moisturized -Wound care consulted SEASONAL ALLERGIES- STARTED ON NASAL STEROIDS WITH IMPROVEMENT Left pointer finger swelling/pain, denies trauma -Hand xray ordered and is negative -Uric acid wnl -Flexeril given for pain -Pain wants Motrin, but will avoid due to kidney function DVT PROPH: increase ambulation -Bilateral lower extremity SCDs. Discussed Condition With: Discharge Planning: - Self-pay Continues on IV antibiotics. difficult dc. d/w family- father- asking for CM (3) Sepsis Qualifiers: Sepsis type: sepsis due to unspecified organism Qualified Code(s): A41.9 - Sepsis, unspecified organism
[2018-06-16] MEDS: ceFAZolin Inj 2,000 MG in Sodium Chlor 0.9% Inj 80 ML IV.SIG SCH ×3 (02:00→17:18)
[2018-06-16] MEDS: Sodium Chloride 0.9% 2 ML Flush BID IV.FLUSH SCH ×2 (09:00→20:45)
[2018-06-16] MEDS: Multivitamin/Minerals Therapeutic Tablet PO SCH (09:59)
[2018-06-16] MEDS: Famotidine 20 MG Tablet PO SCH ×2 (09:59→21:00)
[2018-06-16] MEDS: Metoprolol Tartrate 50 MG Tablet PO SCH ×3 (09:59→17:18)
[2018-06-16] MEDS: Methadone 10 MG Tablet PO SCH (10:00)
[2018-06-16] MEDS: Senna/Docusate Sodium 8.6/50 MG Tablet PO SCH ×2 (10:05→21:00)
[2018-06-16] MEDS: Acetaminophen 325 MG Tablet PO PRN ×2 (14:06→18:40)
--- NOTE | 2018-06-16 17:15 | P.PN ---
Subjective Interval history: awake and alert no complains except left forefinger sore pain when flexed - discusssed with him x ray no fracture Physical Exam Vital signs: Vital Signs 06/15/18 20:00 06/16/18 00:00 06/16/18 04:00 Temperature 98.1 F 98.1 F 98 F Pulse Rate 56 L 60 69 Respiratory Rate 18 18 18 Blood Pressure 102/56 L 125/83 125/83 Pulse Oximetry 97 98 98 06/16/18 05:35 06/16/18 08:00 06/16/18 10:30 Temperature 98.4 F Pulse Rate 77 Respiratory Rate 20 18 Blood Pressure 117/80 Pulse Oximetry 96 97 06/16/18 10:58 06/16/18 12:00 06/16/18 14:46 Temperature 98.4 F Pulse Rate 80 Respiratory Rate 20 20 Blood Pressure 125/84 Pulse Oximetry 96 97 Intake & Output 06/15/18 06/16/18 06/16/18 18:59 06:59 18:59 Intake Total 200 / 200 100 / 100 1420 / 1420 Balance 200 / 200 100 / 100 1420 / 1420 Weight 72 kg Intake: IV 200 / 200 100 / 100 1420 / 1420 Ancef Inj 2,000 MG In NS Inj 80 200 / 200 100 / 100 100 / 100 ML @ 100 mls/hr IV.SIG Q8H [facility] Rx#:[id number] Other: # Voids 10 2 Date of Last Bowel Movement 06/13/18 06/16/18 # Bowel Movements 1 Narrative: GENERAL: Thin built, no distress, interactive SKIN: Warm and dry. Extra dry skin, peeling on bilateral foot with multiple skin discoloration, left fifth toe with necrotic area HEAD: Atraumatic. Normocephalic. EYES: Pupils equal and round. No scleral icterus. No injection or drainage. ENT: No nasal bleeding or discharge. Mucous membranes pink and moist. NECK: Trachea midline. No JVD. CARDIOVASCULAR: Regular rate and rhythm. RESPIRATORY: No accessory muscle use. Clear to auscultation. Breath sounds equal bilaterally. GASTROINTESTINAL: Abdomen soft, non-tender, nondistended. Hepatic and splenic margins not palpable. MUSCULOSKELETAL: Bilateral lower extremity with muscle atrophy. Pedal pulses 2+ . Left arm edema almost resolved. UE- no induration, no swelling, good pulses left forefinger- slightly swollen PIP, no erythema, some pain elicited with flexion NEUROLOGICAL: Awake and alert. No obvious cranial nerve deficits. Motor grossly within normal limits. Generalized weakness, moving all 4 extremities. Normal speech. PSYCHIATRIC: Appropriate mood and affect; insight and judgment normal, cooperative. - Urinary Catheter Management Condom Cath placed during this visit: no Indwelling Urethral Catheter Cath placed during this visit: yes, but has since been removed by the nurse Reason for continuing: Decision to DC catheter Insertion date: 05/06/18 Insertion time: 16:40 Removal date: 05/14/18 Removal time: 08:00 Results - Labs CBC & Chem 7: 06/13/18 07:33 06/13/18 07:33 - Procedures AURELIA Assessment and Plan - Assessment (1) Altered mental status Code(s): R41.82 - Altered mental status, unspecified Status: Acute (2) Endocarditis Code(s): I38 - Endocarditis, valve unspecified Status: Acute (3) Sepsis Code(s): A41.9 - Sepsis, unspecified organism Status: Acute (4) Hyponatremia Code(s): E87.1 - Hypo-osmolality and hyponatremia Status: Acute - Plan Patient is 38 years old male with history of IV drug use previous endocarditis, hepatitis C, who presented to the ED with acute psychosis and altered mental status. Severe sepsis / MSSA infective endocarditis/ Haemophilus influenza pneumonia. 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 -Neurology consult for embolic bilateral infarcts. Dr. Mike. -Continue aspirin -Continue supplement multivitamin thiamine -PT/OT eval and treat, out of bed Pneumonia/septic emboli/ Respiratory insufficiency-resolved -DuoNeb every 6 hours as needed -Sputum culture 05/09 H Influenzae -CT chest shows bilateral infiltrates -ID following -cont IV antibiotics Cefazolin until 06/20/18 per ID Lactic acidosis-resolved NSTEMI/Infective endocarditis/Persistent tachycardia/Hypertension -AURELIA shows large mitral valve vegetation (05/03) -Continue aspirin -Avoid statins at this time due to hep C -Elevated troponin may be secondary to coronary artery septic emboli -continue Lopressor , better rate and BP control Acute Kidney Injury/Hypocalcemia, resolved -Nephrology consulted - S/P HD T-TH- Sat, finished HD per nephrology recommendation -HD catheter removed - avoid nephrotoxins -creat improving, creat 1.83. Making urine -Change to Bumex PO 1 mg BID Chest pain on 06/05. Trop elevated NSTEMI Type II Trop, CXR and EKG done -Appreciate card input, cardiology signed off -Echo done, EF 50-55% -Trop elevated, CXR and EKG done -Continue ASA and BB Hepatitis C -O/p f/u -Continue regular diet. Anemia- of chronic disease- - s/p PRBC transfusion on 05/25- H/H improved after transfusion- was on Epogen as well during HD - continue to monitor, HH 7.3/22.2 -continue MVI, monitor CBC -TRANSFUSED 3 UNITS ON -, hgb stable 10.2, continue to monitor Chronic Pain- history of IVDU -continue on methadone 5 mg daily, pain controlled -monitor response Left UE Thrombus- exam- no inudration, good range of motion, good pulses Venous Doppler left UE: Occlusive superficial thrombus in the mid and distal portions of the cephalic vein. Deep venous system is patent. -elevate left UE -monitor Bilateral foot/extra dry skin -apply petroleum jelly -keep skin moisturized -Wound care consulted SEASONAL ALLERGIES- STARTED ON NASAL STEROIDS WITH IMPROVEMENT Left pointer finger swelling/pain, denies trauma -Hand xray ordered and is negative -Uric acid wnl -Flexeril given for pain -Pain wants Motrin, but will avoid due to recent kidney injury -get OT consult in am- Monday DVT PROPH: increase ambulation -Bilateral lower extremity SCDs. Discussed Condition With: Patient and RN (3) Sepsis Qualifiers: Sepsis type: sepsis due to unspecified organism Qualified Code(s): A41.9 - Sepsis, unspecified organism
[2018-06-17] MEDS: ceFAZolin Inj 2,000 MG in Sodium Chlor 0.9% Inj 80 ML IV.SIG SCH ×3 (02:17→18:33)
[2018-06-17] MEDS: Acetaminophen 325 MG Tablet PO PRN ×3 (02:37→19:41)
--- NOTE | 2018-06-17 07:27 | P.PN ---
Subjective Interval history: comfortable "You're early today" good po left forefinger "sore a little" Physical Exam Vital signs: Vital Signs 06/16/18 08:00 06/16/18 10:30 06/16/18 10:58 Temperature 98.4 F Pulse Rate 77 Respiratory Rate 20 18 Blood Pressure 117/80 Pulse Oximetry 97 96 06/16/18 12:00 06/16/18 14:46 06/16/18 19:18 Temperature 98.4 F Pulse Rate 80 Respiratory Rate 20 20 20 Blood Pressure 125/84 Pulse Oximetry 97 06/16/18 20:00 Temperature 97.5 F L Pulse Rate 61 Respiratory Rate 20 Blood Pressure 126/81 Pulse Oximetry 96 Intake & Output 06/16/18 06/17/18 06/17/18 18:59 06:59 18:59 Intake Total 1970 / 1970 450 / 450 Output Total 1000 / 1000 0 / 0 Balance 970 / 970 450 / 450 Weight 71.6 kg Intake: IV 1420 / 1420 200 / 200 Ancef Inj 2,000 MG In NS Inj 80 100 / 100 200 / 200 ML @ 100 mls/hr IV.SIG Q8H [facility] Rx#:[id number] Oral 550 / 550 250 / 250 Output: Urine 1000 / 1000 0 / 0 Other: Date of Last Bowel Movement 06/16/18 # Bowel Movements 2 Narrative: no distress, interactive SKIN: Warm and dry. Extra dry skin, peeling on bilateral foot with multiple skin discoloration, left fifth toe with necrotic area HEAD: Atraumatic. Normocephalic. EYES: Pupils equal and round. No scleral icterus. No injection or drainage. CARDIOVASCULAR: Regular rate and rhythm. RESPIRATORY:Clear to auscultation. GASTROINTESTINAL: Abdomen soft, non-tender, MUSCULOSKELETAL: Bilateral lower extremity with muscle atrophy. Pedal pulses 2+ . Left arm edema almost resolved. UE- no induration, no swelling, good pulses left forefinger- slightly swollen PIP, no erythema, some pain elicited with flexion NEUROLOGICAL: Awake and alert. No obvious cranial nerve deficits. Motor grossly within normal limits. moving all 4 extremities. Normal speech. PSYCHIATRIC: Appropriate mood and affect; insight and judgment normal, cooperative. - Urinary Catheter Management Condom Cath placed during this visit: no Indwelling Urethral Catheter Cath placed during this visit: yes, but has since been removed by the nurse Reason for continuing: Decision to DC catheter Insertion date: 05/06/18 Insertion time: 16:40 Removal date: 05/14/18 Removal time: 08:00 Results - Labs CBC & Chem 7: 06/13/18 07:33 06/13/18 07:33 - Procedures AURELIA Assessment and Plan - Assessment (1) Altered mental status Code(s): R41.82 - Altered mental status, unspecified Status: Acute (2) Endocarditis Code(s): I38 - Endocarditis, valve unspecified Status: Acute (3) Sepsis Code(s): A41.9 - Sepsis, unspecified organism Status: Acute (4) Hyponatremia Code(s): E87.1 - Hypo-osmolality and hyponatremia Status: Acute - Plan Patient is 38 years old male with history of IV drug use previous endocarditis, hepatitis C, who presented to the ED with acute psychosis and altered mental status. Severe sepsis / MSSA infective endocarditis/ Haemophilus influenza pneumonia. 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 -Neurology consult for embolic bilateral infarcts. Dr. Mike. -Continue aspirin -Continue supplement multivitamin thiamine -PT/OT eval and treat, out of bed Pneumonia/septic emboli/ Respiratory insufficiency-resolved -DuoNeb every 6 hours as needed -Sputum culture 05/09 H Influenzae -CT chest shows bilateral infiltrates -ID following -cont IV antibiotics Cefazolin until 06/20/18 per ID Lactic acidosis-resolved NSTEMI/Infective endocarditis/Persistent tachycardia/Hypertension -AURELIA shows large mitral valve vegetation (05/03) -Continue aspirin -Avoid statins at this time due to hep C -Elevated troponin may be secondary to coronary artery septic emboli -continue Lopressor , better rate and BP control Acute Kidney Injury/Hypocalcemia, resolved -Nephrology consulted - S/P HD T-TH- Sat, finished HD per nephrology recommendation -HD catheter removed - avoid nephrotoxins -creat improving, creat 1.83. Making urine -Change to Bumex PO 1 mg BID Chest pain on 06/05. Trop elevated NSTEMI Type II Trop, CXR and EKG done -Appreciate card input, cardiology signed off -Echo done, EF 50-55% -Trop elevated, CXR and EKG done -Continue ASA and BB Hepatitis C -O/p f/u -Continue regular diet. Anemia- of chronic disease- - s/p PRBC transfusion on 05/25- H/H improved after transfusion- was on Epogen as well during HD - continue to monitor, HH 7.3/22.2 -continue MVI, monitor CBC -TRANSFUSED 3 UNITS ON -, hgb stable 10.2, continue to monitor Chronic Pain- history of IVDU -continue on methadone 5 mg daily, pain controlled -monitor response Left UE Thrombus- exam- no inudration, good range of motion, good pulses Venous Doppler left UE: Occlusive superficial thrombus in the mid and distal portions of the cephalic vein. Deep venous system is patent. -elevate left UE -monitor Bilateral foot/extra dry skin -apply petroleum jelly -keep skin moisturized -Wound care consulted SEASONAL ALLERGIES- STARTED ON NASAL STEROIDS WITH IMPROVEMENT Left pointer finger swelling/pain, denies trauma -Hand xray ordered and is negative -Uric acid wnl -Flexeril given for pain -Pain wants Motrin, but will avoid due to recent kidney injury -get OT consult in am- Monday DVT PROPH: increase ambulation -Bilateral lower extremity SCDs. Discussed Condition With: Patient and RN (3) Sepsis Qualifiers: Sepsis type: sepsis due to unspecified organism Qualified Code(s): A41.9 - Sepsis, unspecified organism
[2018-06-17] MEDS: Multivitamin/Minerals Therapeutic Tablet PO SCH (08:59)
[2018-06-17] MEDS: Sodium Chloride 0.9% 2 ML Flush BID IV.FLUSH SCH ×2 (08:59→21:00)
[2018-06-17] MEDS: Famotidine 20 MG Tablet PO SCH ×2 (08:59→21:08)
[2018-06-17] MEDS: Metoprolol Tartrate 50 MG Tablet PO SCH ×3 (08:59→18:33)
[2018-06-17] MEDS: Methadone 10 MG Tablet PO SCH (08:59)
[2018-06-17] MEDS: Senna/Docusate Sodium 8.6/50 MG Tablet PO SCH ×2 (09:08→21:00)
[2018-06-17] MEDS: Aluminum/Magnesium/Simethacone Susp 30 ML UDC PO PRN (18:50)
[2018-06-17 19:40] LABS: Anion Gap 9 meq/L (5-15); Blood Urea Nitrogen 31 mg/dL (7-18); Calcium 8.3 mg/dL (8.5-10.1); Carbon Dioxide 27.5 meq/L (21.0-32.0); Chloride 102 meq/L (98-107); Glomerular Filtration Rate 45 mL/min (>89); Glucose,Random 89 mg/dL (74-106); Potassium 4.1 meq/L (3.5-5.1); Sodium 138 meq/L (136-145)
[2018-06-17] MEDS ORDERED: Methadone 10 MG Tablet PO ONE (21:00)
[2018-06-18] MEDS: Acetaminophen 325 MG Tablet PO PRN ×3 (01:32→19:28)
[2018-06-18] MEDS: ceFAZolin Inj 2,000 MG in Sodium Chlor 0.9% Inj 80 ML IV.SIG SCH ×3 (02:30→19:03)
[2018-06-18] MEDS: Multivitamin/Minerals Therapeutic Tablet PO SCH (08:43)
[2018-06-18] MEDS: Metoprolol Tartrate 50 MG Tablet PO SCH ×3 (08:43→19:03)
[2018-06-18] MEDS: Senna/Docusate Sodium 8.6/50 MG Tablet PO SCH ×2 (08:43→20:06)
[2018-06-18] MEDS: Famotidine 20 MG Tablet PO SCH ×2 (08:43→20:06)
[2018-06-18] MEDS: Methadone 10 MG Tablet PO SCH (08:43)
[2018-06-18] MEDS: Sodium Chloride 0.9% 2 ML Flush BID IV.FLUSH SCH ×2 (08:46→20:06)
--- NOTE | 2018-06-18 13:09 | P.PNIM ---
Subjective Interval history: Patient does not have any complaints today. He showered this morning, "feels fine." Physical Exam Vital signs: Vital Signs 06/17/18 18:26 06/17/18 20:00 06/17/18 20:15 Temperature 97.8 F 98.2 F Pulse Rate 74 76 Respiratory Rate 18 16 16 Blood Pressure 116/64 126/72 Pulse Oximetry 97 98 06/17/18 21:45 06/18/18 02:35 Temperature Pulse Rate Respiratory Rate 16 18 Blood Pressure Pulse Oximetry Intake & Output 06/17/18 06/18/18 06/18/18 18:59 06:59 18:59 Intake Total 850 / 850 860 / 860 Output Total 1500 / 1500 250 / 250 Balance -650 / -650 610 / 610 Weight 71.8 kg Intake: IV 100 / 100 200 / 200 Ancef Inj 2,000 MG In NS Inj 80 100 / 100 200 / 200 ML @ 100 mls/hr IV.SIG Q8H [facility] Rx#:[id number] Oral 750 / 750 660 / 660 Output: Urine 1500 / 1500 250 / 250 Other: Date of Last Bowel Movement 06/17/18 06/17/18 # Bowel Movements 1 Narrative: General patient in no acute distress HEENT extraocular movements are intact, clear oropharyngeal mucosa, no JVD Cardiovascular S1-S2 audible Respiratory clear to auscultation bilaterally Abdomen soft, nontender, nondistended, normal bowel sounds Extremities no edema 2+ distal pulses in bilateral upper and lower extremities Neuro no neurological deficits. - Urinary Catheter Management Condom Cath placed during this visit: no Indwelling Urethral Catheter Cath placed during this visit: yes, but has since been removed by the nurse Reason for continuing: Decision to DC catheter Insertion date: 05/06/18 Insertion time: 16:40 Removal date: 05/14/18 Removal time: 08:00 Results - Labs CBC & Chem 7: 06/13/18 07:33 06/17/18 18:57 Laboratory Results - last 24 hr 06/17/18 18:57 Sodium 138 Potassium 4.1 Chloride 102 Carbon Dioxide 27.5 Anion Gap 9 BUN 31 H Creatinine 1.71 H Estimated GFR 45 L Random Glucose 89 Calcium 8.3 L Troponin I Less than 0.02 L - Procedures AURELIA Assessment and Plan - Assessment (1) Altered mental status Code(s): R41.82 - Altered mental status, unspecified Status: Acute (2) Endocarditis Code(s): I38 - Endocarditis, valve unspecified Status: Acute (3) Sepsis Code(s): A41.9 - Sepsis, unspecified organism Status: Acute (4) Hyponatremia Code(s): E87.1 - Hypo-osmolality and hyponatremia Status: Acute - Plan This patient is a 38-year-old male with history of IV drug use previous endocarditis, hepatitis C, who presented to the ED with acute psychosis and altered mental status. 06/18/2018 1. Severe sepsis secondary to MSSA infective endocarditis/H influenza pneumonia 2. 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 Blood culture with GPC 4 staph aureus on 05/02/18, 05/20 Blood Cx no growth AURELIA showed large mitral valve vegetation, AURELIA done 05/03/18 Infectious disease recommends that the patient continue IV antibiotics cefazolin until 06/20/2018. He appears to be doing well and is tolerating his treatment. His acute encephalopathy has also resolved. 3. Polysubstance abuse with withdrawal Patient was counseled on the risks of polysubstance abuse. He agrees to stop using after his condition improves. 4. Acute kidney injury Nephrology following the patient serum creatinine currently 1.7. Patient was on hemodialysis. We will continue to monitor the patient's kidney function. Patient is ambulatory no pharmacotherapy for DVT prophylaxis. (3) Sepsis Qualifiers: Sepsis type: sepsis due to unspecified organism Qualified Code(s): A41.9 - Sepsis, unspecified organism
--- NOTE | 2018-06-18 16:40 | ECG ---
Date Performed: 06/17/2018 Time Performed: 19:04:13 PTAGE: 38 years EKG: Sinus rhythm Since the previous tracing, no significant change noted NORMAL ECG PREVIOUS TRACING : 06/06/2018 18.54 DOCTOR: Kassidy Smith Interpretating Date/Time 06/18/2018 16:37:48
[2018-06-19] MEDS: ceFAZolin Inj 2,000 MG in Sodium Chlor 0.9% Inj 80 ML IV.SIG SCH ×3 (02:03→17:00)
[2018-06-19] MEDS: Acetaminophen 325 MG Tablet PO PRN ×3 (03:07→22:02)
[2018-06-19] MEDS: Senna/Docusate Sodium 8.6/50 MG Tablet PO SCH ×2 (08:21→21:01)
[2018-06-19] MEDS: Sodium Chloride 0.9% 2 ML Flush BID IV.FLUSH SCH ×2 (08:21→20:49)
[2018-06-19] MEDS: Famotidine 20 MG Tablet PO SCH ×2 (09:41→20:49)
[2018-06-19] MEDS: Metoprolol Tartrate 50 MG Tablet PO SCH ×3 (09:41→17:26)
[2018-06-19] MEDS: Multivitamin/Minerals Therapeutic Tablet PO SCH (09:41)
[2018-06-19] MEDS: Methadone 10 MG Tablet PO SCH (09:42)
--- NOTE | 2018-06-19 10:15 | P.PN ---
Subjective Interval history: Patient seen lying quietly in bed. He is looking forward to potentially being discharged tomorrow. No new complaints or concerns. Physical Exam Vital signs: Vital Signs 06/18/18 20:00 06/19/18 08:00 Temperature 97.7 F 98.8 F Pulse Rate 69 65 Respiratory Rate 18 20 Blood Pressure 130/79 140/82 Pulse Oximetry 97 98 Intake & Output 06/18/18 06/19/18 06/19/18 18:59 06:59 18:59 Intake Total 1200 / 1200 920 / 920 Output Total 3000 / 3000 900 / 900 Balance -1800 / -1800 20 Weight 71.1 kg Intake: IV 100 / 100 200 / 200 Ancef Inj 2,000 MG In NS Inj 80 100 / 100 200 / 200 ML @ 100 mls/hr IV.SIG Q8H STEFFANIE Rx#:[id number] Oral 1000 / 1000 720 / 720 Other 100 / 100 Output: Urine 500 / 500 900 / 900 Urine/Stool Mix 0 / 0 Hemodialysis Amount 2500 / 2500 Gastric Drainage 0 / 0 Right Nare Nasogastric Tube 0 / 0 Other: Other Intake Source Saline Solution # Voids 2 Date of Last Bowel Movement 06/17/18 06/18/18 06/19/18 # Bowel Movements 1 1 # Incontinent Bowel Movements 1 Narrative: GENERAL: Well-nourished, well-developed adult male in no obvious distress. SKIN: Warm and dry. HEAD: Atraumatic. Normocephalic. CARDIOVASCULAR: Regular rate and rhythm. RESPIRATORY: No accessory muscle use. Clear to auscultation. Breath sounds equal bilaterally. GASTROINTESTINAL: Abdomen soft, non-tender, non-distended. Positive bowel sounds. MUSCULOSKELETAL: Extremities without clubbing, cyanosis, or edema. No obvious deformities. NEUROLOGICAL: Awake and alert. No obvious cranial nerve deficits. Motor grossly within normal limits. Normal speech. PSYCHIATRIC: Appropriate mood and affect; insight and judgment good. - Urinary Catheter Management Condom Cath placed during this visit: no Indwelling Urethral Catheter Cath placed during this visit: yes, but has since been removed by the nurse Reason for continuing: Decision to DC catheter Insertion date: 05/06/18 Insertion time: 16:40 Removal date: 05/14/18 Removal time: 08:00 Results - Labs CBC & Chem 7: 06/13/18 07:33 06/17/18 18:57 - Procedures AURELIA Assessment and Plan - Assessment (1) Altered mental status Code(s): R41.82 - Altered mental status, unspecified Status: Acute (2) Endocarditis Code(s): I38 - Endocarditis, valve unspecified Status: Acute (3) Sepsis Code(s): A41.9 - Sepsis, unspecified organism Status: Acute (4) Hyponatremia Code(s): E87.1 - Hypo-osmolality and hyponatremia Status: Acute - Plan This patient is a 38-year-old male with history of IV drug use previous endocarditis, hepatitis C, who presented to the ED with acute psychosis and altered mental status. 1. Severe sepsis secondary to MSSA infective endocarditis/H influenza pneumonia 2. 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 Blood culture with GPC 4 staph aureus on 05/02/18, 05/20 Blood Cx no growth AURELIA showed large mitral valve vegetation, AURELIA done 05/03/18 Infectious disease recommends that the patient continue IV antibiotics cefazolin until 06/20/2018. He appears to be doing well and is tolerating his treatment. His acute encephalopathy has also resolved. 3. Polysubstance abuse with withdrawal Patient was counseled on the risks of polysubstance abuse. He agrees to stop using after his condition improves. 4. Acute kidney injury Nephrology following the patient serum creatinine currently 1.7. Patient was on hemodialysis -last dialysis was over 2 weeks ago. We will continue to monitor the patient's kidney function. Patient is ambulatory no pharmacotherapy for DVT prophylaxis. Discussed with: Patient and nurse. Discharge planning: We will likely discharge home once cleared by ID. (3) Sepsis Qualifiers: Sepsis type: sepsis due to unspecified organism Qualified Code(s): A41.9 - Sepsis, unspecified organism
[2018-06-19 12:30] LABS: Baso # (Auto) 0.1 th/mm3 (0.0-0.2); Baso % (Auto) 1.1 % (0.0-2.0); Eos # (Auto) 0.6 th/mm3 (0.0-0.4); Eos % (Auto) 9.8 % (0.0-4.0); Hematocrit 31.9 % (39.0-51.0); Hemoglobin 10.5 gm/dL (13.0-17.0); Lymph # (Auto) 1.4 th/mm3 (1.0-4.8); Lymph % (Auto) 24.3 % (9.0-44.0); Mean Corpuscular Hemoglobin 27.8 pg (27.0-34.0); Mean Corpuscular Volume 84.2 fL (80.0-100.0); Mean Platelet Volume 8.1 fL (7.0-11.0); Mono # (Auto) 0.6 th/mm3 (0.0-0.9); Mono % (Auto) 10.1 % (0.0-8.0); Neut # (Auto) 3.2 th/mm3 (1.8-7.7); Neut % (Auto) 54.7 % (16.0-70.0); Platelet Count 377 th/mm3 (150-450); Red Blood Count 3.78 mil/mm3 (4.50-5.90); Red Cell Distribution Width 15.6 % (11.6-17.2); White Blood Count 5.8 th/mm3 (4.0-11.0)
[2018-06-19 12:54] LABS: Alanine Aminotransferase 12 U/L (12-78); Albumin 2.8 g/dL (3.4-5.0); Anion Gap 7 meq/L (5-15); Aspartate Aminotransferase 30 U/L (15-37); Blood Urea Nitrogen 31 mg/dL (7-18); Calcium 8.9 mg/dL (8.5-10.1); Carbon Dioxide 29.5 meq/L (21.0-32.0); Chloride 102 meq/L (98-107); Glomerular Filtration Rate 42 mL/min (>89); Glucose,Random 81 mg/dL (74-106); Potassium 4.3 meq/L (3.5-5.1); Sodium 138 meq/L (136-145)
[2018-06-19 12:57] LABS: Alkaline Phosphatase 109 U/L (45-117); Total Protein 8.4 g/dL (6.4-8.2)
[2018-06-20] MEDS: ceFAZolin Inj 2,000 MG in Sodium Chlor 0.9% Inj 80 ML IV.SIG SCH ×2 (01:46→09:28)
[2018-06-20] MEDS: Acetaminophen 325 MG Tablet PO PRN (05:19)
--- NOTE | 2018-06-20 08:23 | P.DS ---
Date of admission: 04/30/18 12:09 Primary care physician: Nora Primary Care Physician Attending physician on discharge: Leslie Moncada Anticipated date of discharge: 06/20/18 Brief History from admission: Patient is 30-year-old male with history of IV drug use, prev endocarditis, Hepatitis C, who presented to the emergency department via [facility] from [facility] for acute psychosis and altered mental status. CT of the head done at [facility] was negative for acute findings. Patient was very confused and delirious at [facility] ED. His last IV drug use of heroin was 5 days ago. Urine drug screen is pending at this time. ER workup showed multiple abnormalities, pertinent ones being a white count of 16.1 with left shift, troponin 3.24, lactic acid 3.1, CPK of 592, potassium of 3.1. Received 3 L of normal saline in the ED and was given Zosyn and vancomycin. I evaluated the patient in the emergency department. He is confused delirious oriented to person only. He is very tachycardic and dry. Patient appears very critical and septic. With IV drug use patient most likely has recurrence of infective endocarditis. Cardiology consult as well as ID consult had been requested. I will give additional 1 L fluid bolus and continue vancomycin and Zosyn. I will place on Precedex. 2D echo is pending at this time Patient update on day of discharge: Patient is seen sitting up in bed. Discussed discharge today-patient understands that he will need to follow-up with primary care and nephrology. Discussed that his kidney function is still not optimal and that he will need to be managed carefully. Also discussed avoiding any pain medications containing ibuprofen and the importance of staying well-hydrated and controlling blood pressure and blood sugars. He indicated understanding. Denies any chest pain or shortness of breath. No nausea vomiting or diarrhea. No fever or chills. DS: Diagnosis - Discharge Diagnosis (1) Altered mental status Status: Acute (2) Endocarditis Status: Acute (3) Sepsis Status: Acute (4) Hyponatremia Status: Acute DS: Medications - Discharge Medications Prescriptions: bumetanide 1 mg PO BID@0900,1800 #60 tab metoprolol tartrate 50 mg PO TID #90 tab DS: Summary Hospital Course: This patient is a 38-year-old male with history of IV drug use previous endocarditis, hepatitis C, who presented to the ED with acute psychosis and altered mental status. 1. Severe sepsis secondary to MSSA infective endocarditis/H influenza pneumonia 2. Acute metabolic encephalopathy- mental status improved Multifocal bilateral punctate infarcts, probable septic emboli Blood culture with GPC 4 staph aureus on 05/02/18, 05/20 Blood Cx no growth AURELIA showed large mitral valve vegetation, AURELIA done 05/03/18 Infectious disease recommends that the patient continue IV antibiotics cefazolin until 06/20/2018. He appears to be doing well and is tolerating his treatment. His acute encephalopathy has also resolved. 3. Polysubstance abuse with withdrawal Patient was counseled on the risks of polysubstance abuse. He agrees to stop using after his condition improves. 4. Acute kidney injury Nephrology following the patient serum creatinine currently 1.7. Patient was on hemodialysis -last dialysis was over 2 weeks prior to discharge. Patient is recommended to follow-up with nephrology at discharge due to continued decreased kidney function and likely now chronic kidney disease. - Time Spent with Patient Total time spent providing and/or coordinating discharge services: Less than 30 minutes Exam Vital signs: Vital Signs 06/19/18 10:12 06/19/18 13:40 06/19/18 20:00 Temperature 97.6 F Pulse Rate 61 Respiratory Rate 20 20 20 Blood Pressure 136/84 Pulse Oximetry 96 Intake & Output 06/19/18 06/20/18 06/20/18 18:59 06:59 18:59 Intake Total 1050 / 1050 1100 / 1100 Output Total 1200 / 1200 Balance -150 / -150 1100 / 1100 Weight 70.6 kg Intake: IV 200 / 200 Ancef Inj 2,000 MG In NS Inj 80 200 / 200 ML @ 100 mls/hr IV.SIG Q8H STEFFANIE Rx#:[id number] Oral 850 / 850 800 / 800 Other 300 / 300 Output: Urine 1200 / 1200 Other: Other Intake Source Saline Solution # Voids 5 8 Date of Last Bowel Movement 06/19/18 06/19/18 # Bowel Movements 1 Narrative: GENERAL: Well-nourished, well-developed adult male in no obvious distress. SKIN: Warm and dry. HEAD: Atraumatic. Normocephalic. CARDIOVASCULAR: Regular rate and rhythm. RESPIRATORY: No accessory muscle use. Clear to auscultation. Breath sounds equal bilaterally. GASTROINTESTINAL: Abdomen soft, non-tender, non-distended. Positive bowel sounds. MUSCULOSKELETAL: Extremities without clubbing, cyanosis, or edema. No obvious deformities. NEUROLOGICAL: Awake and alert. No obvious cranial nerve deficits. Motor grossly within normal limits. Normal speech. PSYCHIATRIC: Appropriate mood and affect; insight and judgment good. Results Procedures completed during hospitalization: AURELIA Labs on day of discharge: Labs from last 24 hours 06/19/18 06/19/18 11:39 11:39 WBC 5.8 RBC 3.78 L Hgb 10.5 L Hct 31.9 L MCV 84.2 MCH 27.8 MCHC 33.0 RDW 15.6 Plt Count 377 MPV 8.1 Neut % (Auto) 54.7 Lymph % (Auto) 24.3 [place] % (Auto) 10.1 H Eos % (Auto) 9.8 H Baso % (Auto) 1.1 Neut # (Auto) 3.2 Lymph # (Auto) 1.4 [place] # (Auto) 0.6 Eos # (Auto) 0.6 H Baso # (Auto) 0.1 WBC Differential . Differential Comment Auto diff final Sodium 138 Potassium 4.3 Chloride 102 Carbon Dioxide 29.5 Anion Gap 7 BUN 31 H Creatinine 1.80 H Estimated GFR 42 L Random Glucose 81 Calcium 8.9 Total Bilirubin 0.2 AST 30 ALT 12 Alkaline Phosphatase 109 Total Protein 8.4 H Albumin 2.8 L - Impressions ITS Impressions Chest CT 04/30/18 00:00 CONCLUSION: 1. Parenchymal process bilaterally most likely inflammatory and pneumonia. Head MRI 05/01/18 00:00 CONCLUSION: 1. Multifocal bilateral punctate infarcts, suspicious for embolic disease. 2. No midline shift or mass effect. Thoracic Spine MRI 05/06/18 00:00 CONCLUSION: 1. Negative thoracic MRI with no evidence of osteomyelitis or discitis. 2. Please see lumbar spine MRI for further details on findings in this region. Head CT 05/06/18 15:42 CONCLUSION: 1. No acute hemorrhage or mass effect. 2. The small bilateral known punctate infarcts seen on the MRI are not distinctly visualized. 3. Mucosal thickening in the ethmoidal air cells, sphenoid sinus and both maxillary sinuses. Abdomen/Bladder Ultrasound 05/08/18 00:00 CONCLUSION: 1. Trace perinephric fluid surrounding the right kidney. 2. Small right pleural effusion. 3. Otherwise normal sonographic appearance of the kidneys without evidence of hydronephrosis. Abdomen/Pelvis CT 05/23/18 00:00 CONCLUSION: 1. New moderate-sized area of left lower lobe atelectasis. 2. New small pericardial effusion. 3. New mild superficial soft tissue edema of the lateral anterior abdominal wall bilaterally. 4. Splenic infarct again noted. 5. Perinephric stranding again noted bilaterally. Lumbar Spine MRI 05/24/18 00:00 CONCLUSION: 1. Subcutaneous fluid as described above. This is decreased since prior of 04/2018. 2. No significant disc protrusion identified. No abnormal marrow signal seen within the vertebral bodies. Venous Doppler Study 05/24/18 00:00 CONCLUSION: 1. Occlusive superficial thrombus in the mid and distal portions of the cephalic vein. Deep venous system is patent. Chest X-Ray 06/05/18 00:00 CONCLUSION: No acute intrathoracic disease. Hand X-Ray 06/13/18 00:00 CONCLUSION: Negative examination Discharge Plan - Discharge Disposition Patient Disposition: 01 Discharge Home - Discharge Condition Condition: Stable - Discharge Order Discharge Orders: Discharge Order (Routine); Ordered 06/20/18 Ordered By: Ashley Smith - Discharge Details Anticipated Discharge Date: 06/20/18 Discharge Comment: 1) Okay to discharge pending ID clearance. - Physicians Team Primary Care Provider: Primary Care Physici,No Attending Provider: Leslie Moncada Other Providers: Naye Lucio MD ; Jose M Martines MD ; Brenda Mike MD ; Preston Lino MD ; Bert Tenorio MD ; Makeda Dominguez MD ; Sukhjinder Foster DO
[2018-06-20] MEDS: Metoprolol Tartrate 50 MG Tablet PO SCH (09:18)
[2018-06-20] MEDS: Senna/Docusate Sodium 8.6/50 MG Tablet PO SCH (09:18)
[2018-06-20] MEDS: Methadone 10 MG Tablet PO SCH (09:18)
[2018-06-20] MEDS: Famotidine 20 MG Tablet PO SCH (09:18)
[2018-06-20] MEDS: Multivitamin/Minerals Therapeutic Tablet PO SCH (09:18)
[2018-06-20] MEDS: Sodium Chloride 0.9% 2 ML Flush BID IV.FLUSH SCH (09:19)
[2018-06-20 09:20] VITALS: RESP 16
[2018-06-20 10:43] VITALS: BP 124/86; PULSE 77; TEMP 98.4; O2SAT 98
--- NOTE | 2018-06-20 10:56 | P.PNADD ---
Addendum to Inpatient Note Additional information: Pt scheduled to complete abx today OK to discharge hesham RN
== END 2018-06-20 13:25 | disposition home or self-care (01) ==
LOC: NEPD 08:19 → NEDA 12:09 → N03 13:55 → N04 05-04 16:29 → HIMC 05-06 14:30 → N04 05-17 21:03 → H7ONC 06-15 17:37
PROVIDERS: ADMIT Hospitalist; ATTEND Hospitalist